=== PATIENT | male | born 1955 | race Caucasian/White ===

== ENCOUNTER 2023-08-04 12:06 | Outpatient (OUT) | payer OTHER, SELFPAY ==
--- NOTE | 2023-08-04 13:11 | P.CN_ITS ---
Consult Note: HPI Data of Consult Patient: new to practice Consult date: 08/04/23 Requesting Physician: Marce Zapata MD Primary Care Provider: Non-Staff Physician, Consult Narrative Reason for consult: Generalized pain, neck, low back pain Narrative: 67yom who presents for evaluation. Notes generalized pain, particularly in neck and low back pain. Previously was on fentanyl patch, now on tramadol. No recent imaging. Confined to wheelchair due to pain. Multiple comorbidities, currently on oxygen. Denies adverse med side effects. cc:: CC: Marce Zapata MD Review of Systems ROS Status of ROS 10 or more systems reviewed and unremark able except as noted in history and below Meds Home Medications and Allergies Home Medications Medication Instructions Recorded Confirmed Type buprenorphine 5 mcg/hour weekly 1 patch transdermal QWEEK #4 ea 08/04/23 Rx transdermal patch (Butrans) meloxicam 15 mg tablet 15 mg PO DAILY #30 tabs 08/04/23 Rx pregabalin 50 mg capsule (Lyrica) 50 mg PO TID #90 caps 08/04/23 Rx Exam Narrative Exam Narrative: Psych-alert and oriented x 3.? Attentive and appropriate, constitutionally normal, displays normal mood and affect per situation.? There are no obvious deficits in memory, reasoning, or intellect.? Skin-no obvious rashes, bruising, or erythema noted to the patient's area of pain. Extremities-upper extremities are warm with minimal edema and palpable pulses. Cervical- tenderness to palpation noted in the cervical spine and paraspinal musculature.? Pain is elicited with extension, and lateral rotation of the cervical spine.? Range of motion is slightly diminished due to pain. Facet loading maneuvers are positive bilaterally.? Lumbar-no significant tenderness to palpation noted in the lumbar spine and paraspinal musculature.? Pain is elicited with extension, and lateral rotation of the lumbar spine. Range of motion is slightly diminished with these motions due to pain. Facet loading maneuvers are positive bilaterally and do appear to be concordant with the patient's normal complaints of pain.? Coordination remains intact.? Gait remains non-antalgic. Assessment and Plan Assessment and Plan (1) Cervicalgia: (2) Lumbago: Qualifiers: Chronicity: chronic Back pain laterality: unspecified Sciatica presence: unspecified whether sciatica present Qualified Code(s): M54.50 - Low back pain, unspecified; G89.29 - Other chronic pain Plan 67yom who presents for evaluation. No recent imaging, so will have him undergo lumbar and cervical XR. He is in agreement. Meds reviewed. PDMP reviewed. Drug screen obtained. Will trial butrans patch 5 mcg/hr, meloxicam 15mg daily prn, lyrica 50mg tid. Follow up after imaging complete.
== END 2023-08-04 12:07 | disposition home or self-care (01) ==
PROVIDERS: Visit Provider Anesthesiology
DX: M54.50 Low back pain, unspecified (principal); M54.2 Cervicalgia; G89.29 Other chronic pain
CPT/HCPCS: G0463

== ENCOUNTER 2023-08-04 13:31 | Outpatient (OUT) | payer OTHER, SELFPAY ==
--- NOTE | 2023-08-04 13:37 | XR_ITS ---
[facility] [id number] Patient Name: MELBA LEVY MRN: [id number] date: 1955 Sex: M Assigned Patient Location: [facility] Current Patient Location: [facility] Accession/Order Number: [id number] Exam Date: 08/04/2023 14:00 Report Date: 08/04/2023 14:45 At the request of: SAWYER STILL Procedure: XR lumbar spine 6V w bending EXAMINATION: XR lumbar spine 6V w bending, XR cervical spine w flex/ext HISTORY: Low Back Pain COMPARISON: No relevant comparison available. CERVICAL: BONES: Normal alignment with no acute fracture or spondylolisthesis. Mild to moderate degenerative spondylosis. Moderate facet osteoarthropathy DISC SPACES: Moderate degenerative changes C5-6 and C6-7 PARASPINOUS: Negative. No paraspinous abnormality is seen. OTHER: No transient spondylolisthesis with flexion or extension . C7 is poorly visualized on the lateral projection XR/XR lumbar spine 6V w bending IMPRESSION: Moderate degenerative changes with no dynamic instability LUMBAR: BONES: Normal alignment of the lumbar vertebral bodies with no acute fracture or spondylolisthesis. Mild degenerative spondylosis. Moderate facet osteoarthropathy. DISC SPACES: Normal. No significant disc height narrowing, subluxation, or endplate abnormality. PARASPINOUS: Negative. No paraspinous abnormality is seen. OTHER: No transient spondylolisthesis with flexion or extension. Vascular calcifications. Dilation of the distal aorta measuring 3.1 cm on the lateral projection IMPRESSION: Mild to moderate degenerative changes with no dynamic instability Electronically authenticated by: PARAMJIT CHAVEZ Date: 08/04/2023 14:45
--- NOTE | 2023-08-04 13:37 | XR_ITS ---
[facility] [place] [facility] [id number] Patient Name: MELBA LEVY MRN: [id number] date: 1955 Sex: M Assigned Patient Location: [facility] Current Patient Location: [facility] Accession/Order Number: [id number] Exam Date: 08/04/2023 14:00 Report Date: 08/04/2023 14:45 At the request of: SAWYER CHEUNGRADARIN Procedure: XR cervical spine w flex/ext EXAMINATION: XR lumbar spine 6V w bending, XR cervical spine w flex/ext HISTORY: Low Back Pain COMPARISON: No relevant comparison available. CERVICAL: BONES: Normal alignment with no acute fracture or spondylolisthesis. Mild to moderate degenerative spondylosis. Moderate facet osteoarthropathy DISC SPACES: Moderate degenerative changes C5-6 and C6-7 PARASPINOUS: Negative. No paraspinous abnormality is seen. OTHER: No transient spondylolisthesis with flexion or extension . C7 is poorly visualized on the lateral projection XR/XR cervical spine w flex/ext IMPRESSION: Moderate degenerative changes with no dynamic instability LUMBAR: BONES: Normal alignment of the lumbar vertebral bodies with no acute fracture or spondylolisthesis. Mild degenerative spondylosis. Moderate facet osteoarthropathy. DISC SPACES: Normal. No significant disc height narrowing, subluxation, or endplate abnormality. PARASPINOUS: Negative. No paraspinous abnormality is seen. OTHER: No transient spondylolisthesis with flexion or extension. Vascular calcifications. Dilation of the distal aorta measuring 3.1 cm on the lateral projection IMPRESSION: Mild to moderate degenerative changes with no dynamic instability Electronically authenticated by: PARAMJIT CHAVEZ Date: 08/04/2023 14:45
== END 2023-08-04 13:32 | disposition home or self-care (01) ==
LOC: RAD 13:32
PROVIDERS: Visit Provider Anesthesiology
DX: M54.50 Low back pain, unspecified (principal); M54.2 Cervicalgia; G89.29 Other chronic pain
CPT/HCPCS: 72052; 72114; G0463

== ENCOUNTER 2023-08-25 12:05 | Outpatient (OUT) | payer OTHER, SELFPAY ==
--- OUTSIDE RECORDS SUMMARY | 2023-08-25 12:17 | XMS_ITS | CCD ---
Demographics Address [address] [place] [address] Preferred Language en Marital Status Single Restoration Affiliation Unknown Race Unknown Ethnic Group Not or Lati no Author Name Unknown Address [address] [place] [address] Organization [facility] Care Team Providers Care Board Writer Name Role Phone TY POSEY Unavailable Unavailable ORA, BRIANA Unavailable Unavailable ORA, BRIANA Unavailable Unavailable ORA, BRIANA Unavailable Unavailable JERMAINE PAEZ Unavailable Unavailable SELF, REFERRED Referring Unavailable SETH, ELENA Primary Care Unavailable UNKNOWN, PROVIDER Admitting Unavailable UNKNOWN, PROVIDER Attending Unavailable RI Procedure Practitioner Unavailab SHAYY Miranda Surgeon Unavailable RI Procedure Practitioner Unavailab Alan Nicholson Surgeon Unavailable RI Procedure Practitioner Unavailab le UNKNOWN, PROVIDER Surgeon Unavailable RI Procedure Practitioner Unavailab SVITLANA Samuel Surgeon Unavailable SETH, ELENA Primary Care Unavailable UNKNOWN, PROVIDER Referring Unavailable SVITLANA JONES Attending Unavailable DEXTER HERNANDEZ Admitting Unavailable KATIA BOYCE Admitting Unavailable KATIA BOYCE Attending Unavailable SETH, ELENA Referring Unavailable SETH, ELENA Primary Care Unavailable Elena Ann Primary Care Provider [phone] Elena Ann Primary Care Provider Elena Ann Primary Care Provider Fernando Angeles MD Unavailable Leo CAMERON Primary Care Physician Rupal Maravilla Unavailable Unavailable Chris Kamara Unavailable Unavailable Leo Garza Primary Care Provider CONSTANTIN ROCKWELL Referring Unavailable LEO CAMERON Primary Care Unavailable NON STAFF Primary Care Unavailable Joesph Pelletier Admitting Unavailable Joesph Pelletier Attending Unavailable NON STAFF Primary Care Provider UnavailDO Joesph Fine Emergency Provider Leo CAMERON Primary Care Physician [phone] Pierce Escamilla Unavailable Unavailable Unavailable Primary Care Provider Unavailjimmie Ann CNP, Elena Gregory Primary Care Provider [phone] Bridgette STRINGER, Fernando Gar Unavailable Cem Aquino Attending Unavailable Leo CAMERON Attending Unavailable Dora GANN Admitting Unavailable Dora GANN Attending Unavailable Cam, Jeremy Consulting Unavailable MD Cam Jeremy Consulting Unavailable Akkina, Jeremy Consulting Unavailable Akkina, Jeremy Consulting Unavailable Akkina, Jeremy Consulting Unavailable Akkina, Jeremy Consulting Unavailable Akkina, Jeremy Consulting Unavailable Akkina, Jeremy Consulting Unavailable Akkina, Jeremy Consulting Unavailable Marce Zapata MD Attending Unavailable PROVIDER, UNKNOWN Attending Unavailable PROVIDER, UNKNOWN Admitting Unavailable Allergies Allergy Classification Reported Allergen(s) Allergy Type Date of Onset Reaction(s) Facility (2 sources) gabapentin Drug Allergy 9 Rash [place], [place] (17 sources) cloNIDine; Translations: [clonidine] Drug Allergy 8 Dizzy spells (finding) [facility] Work Phone: Comment on above: pt falls , lighthead ed, passed out pt falls , lighthead ed, passed out (1 source) No Known Medication Allergies; Translations: [No Known Medication Allergies] Propensity to adverse reactions (disorder) [facility] Repository Medications Current Medications Medication Drug Class(es) Dates Sig (Normalized) Sig (Original) acetaminophen 325 mg oral tablet (6 sources) Start: 12-07-2021 take 2 tablets by mouth every six hours as needed for pain acetaminophen 325 mg Tab 650 mg = 2 tab(s), Oral, q6hr, PRN Pain, Refills(s) 0 Start Date: 12/07/21 Status: Ordered acetaminophen 325 mg / oxyCODONE hydrochloride 5 mg oral tablet (2 sources) Opioid Agonist Start: 05-04-2022 End: 06-03-2022 oxyCODONE-acetamino phen (PERCOCET) 5-325 MG per tablet Indications: Lumbar spondylosis Take 1 tablet by mouth every 8 hours as needed for Pain for up to 30 days. Intended supply: 7 days. Take lowest dose possible to manage pain 75 tablet 0 05/04/2022 06/03/2022 Active Start: 09-22-2020 End: 10-22-2020 take 1 tablet by mouth twice daily oxyCODONE-acetaminophen (PERCOCET) 5-325 MG per tablet Indications: Polyarthralgia Take 1 tablet by mouth 2 times daily for 30 days. 60 tablet 0 09/22/2020 10/22/2020 Active 0.8 ml adalimumab 50 mg/ml auto-injector (2 sources) Tumor Necrosis Factor Rhoda Start: 12-13-2019 HUMIRA PEN 40 MG/0.8ML injection albuterol 0.833 mg/ml / ipratropium bromide 0.167 mg/ml inhalation solution (12 sources) Anticholinergic , beta2-Adrenergi c Agonist Start: 04-04-2022 take 3 mL by inhalation four times daily DuoNeb 2.5 mg-0.5 mg/3 mL Soln-Inh 3 mL, Inhalation, QID, 180 mL, Refill(s) 0, [facility] #[id number], 178, cm, 04/03/22 20:21:00 EDT, Height/Length Dosing, 78.1, kg, 04/03/22 20:21:00 EDT, Weight Dosing Start Date: 04/04/22 Status: Ordered Start: 10-04-2021 take 3 mL by inhalat ion four times daily DuoNeb 2.5 mg-0.5 mg/3 mL Soln-Inh 3 mL, Inhalation, QID, Refill(s) 0 Start Date: 10/04/21 Status: Ordered take 20-100 ug by in halation every six hours albuterol-ipratropium (COMBIVENT RESPIMAT) 20-100 MCG/ACT AERS inhaler Inhale 1 puff into the lungs every 6 hours 0 Active albuterol HFA 90 mcg/inh MDI (14 sources) Start: 04-04-2022 take 2 puff(s) by inhalation every four hours albuterol HFA 90 mcg/inh MDI 2 puff(s), Inhalation, q4hr Shortness of breath or wheezing, 18 gm, Refill(s) 5, [facility] #[id number], 178, cm, 04/03/22 20:21:00 EDT, Height/Length Dosing, 78.1, kg, 04/03/22 20:21:00 EDT, Weight Dosing Start Date: 04/04/22 Status: Ordered Start: 06-18-2021 take 1 dose by inhal ation every four hours albuterol HFA 90 mcg/inh MDI 2 puff(s), Inhalation, q4hr Shortness of breath or wheezing, 1 EA, Refill(s) 5, [facility] #[id number], 185, cm, 04/11/21 9:53:00 EDT, Height/Length Dosing, 89, kg, 04/11/21 9:53:00 EDT, Weight Dosing Start Date: 06/18/21 Status: Ordered amLODIPine 10 mg oral tablet (3 sources) Dihydropyridine Calcium Channel Rhoda take 1 tablet by mouth once daily amLODIPine (NORVASC) 10 MG tablet Indications: Not taking Take 10 mg by mouth daily 0 Active aspirin 81 mg delayed release oral tablet (20 sources) Platelet Aggregation Inhibitor, Nonsteroidal Anti-inflammatory Drug Start: 04-04-20 take 1 tablet by mouth once daily aspirin 81 mg Oral EC Tab 81 mg = 1 tab(s), Oral, Daily, # 30 tab(s), Refills(s) 0, Pharmacy: [facility] #[id number], 178, cm, 04/03/22 20:21:00 EDT, Height/Length Dosing, 78.1, kg, 04/03/22 20:21:00 EDT, Weight Dosing Start Date: 04/04/22 Status: Ordered Start: 10-15-2018 take 1 tablet by mouth once da asim aspirin 81 mg Oral EC Tab 81 mg = 1 tab(s), Oral, Daily Start Date: 10/15/18 Status: Ordered Start: 10-15-2018 take 1 tablet by mouth once da asim aspirin 81 mg Oral EC Tab 81 mg = 1 tab(s), Oral, Daily Start Date: 10/15/18 Status: Ordered Comment on above: Take by mouth once d aily. baclofen 10 mg oral tablet (2 sources) gamma-Aminobutyric Acid-ergic Agonist Start: 11-27-2018 baclofen (LIORESAL) 10 MG tablet 1/2 tab to 1 tab TID 30 tablet 1 11/27/2018 Active bumetanide 2 mg oral tablet (14 sources) Loop Diuretic Start: 04-19-2022 take 1 tablet by mouth once daily bumetanide 2 mg Tab 2 mg = 1 tab(s), Oral, Daily, Refills(s) 0 Start Date: 04/19/22 Status: Ordered Start: 09-04-2021 take 1 tablet by jered th once daily bumetanide 2 mg Tab 2 mg = 1 tab(s), Oral, Daily, # 30 tab(s), Refills(s) 0 Start Date: 09/04/21 Status: Ordered Start: 08-07-2020 take 1 tablet by jered th twice daily bumetanide (BUMEX) 2 MG tablet TAKE 1 TABLET BY MOUTH TWICE DAILY 0 08/07/2020 Active carvedilol 25 mg oral tablet (20 sources) alpha-Adrenergic Rhoda, beta-Adrenergic Rhoda Start: 04-04-2022 take 1 tablet by mouth twice daily carvedilol 25 mg Tab 25 mg = 1 tab(s), Oral, BID, # 60 tab(s), Refills(s) 5, Pharmacy: [facility] #[id number], 178, cm, 04/03/22 20:21:00 EDT, Height/Length Dosing, 78.1, kg, 04/03/22 20:21:00 EDT, Weight Dosing Start Date: 04/04/22 Status: Ordered Start: 09-01-2021 take 1 tablet by jered th twice daily carvedilol 25 mg Tab 25 mg = 1 tab(s), Oral, BID, # 60 tab(s), Refills(s) 5, Pharmacy: [facility] #[id number], 185.4, cm, 08/09/21 2:15:00 EST, Height/Length Dosing, 90.2, kg, 08/14/21 1:30:00 EST, Weight Dosing Start Date: 09/01/21 Status: Ordered Start: 10-26-2014 carvedilol (CO REG) 25 MG tablet Take 12.5 mg by mouth 2 times daily 0 10/26/2014 Active take 2 tablets by mo [facility] twice daily at mealtime carvedilol (COREG) 25 mg tablet Take 50 mg by mouth twice daily with meals. 0 Active Comment on above: Take 50 mg by mouth twice daily with meals. cholecalciferol 0.025 mg oral tablet (14 sources) Vitamin D Start: 04-04-20 take 1 tablet by mouth once daily cholecalciferol 1000 intl units (25 mcg) oral tablet 25 mcg = 1 tab(s), Oral, Daily, # 30 tab(s), Refills(s) 0, Pharmacy: [facility] #[id number], 178, cm, 04/03/22 20:21:00 EDT, Height/Length Dosing, 78.1, kg, 04/03/22 20:21:00 EDT, Weight Dosing Start Date: 04/04/22 Status: Ordered Start: 10-04-2021 take 1 tablet by [facility] once daily cholecalciferol 1000 intl units (25 mcg) oral tablet 25 mcg = 1 tab(s), Oral, Daily, Refills(s) 0 Start Date: 10/04/21 Status: Ordered Start: 10-04-2021 take 1 tablet by jered once daily cholecalciferol 1000 intl units (25 mcg) oral tablet 25 mcg = 1 tab(s), Oral, Daily, Refills(s) 0 Start Date: 10/04/21 Status: Ordered DuoNeb 2.5 mg-0.5 mg/3 mL Soln-Inh (5 sources) Start: 10-04-2021 take 3 mL by inhalation four times daily DuoNeb 2.5 mg-0.5 mg/3 mL Soln-Inh 3 mL, Inhalation, QID, Refill(s) 0 Start Date: 10/04/21 Status: Ordered 72 hr fentaNYL 0.025 mg/hr transdermal system (1 source) Opioid Agonist Start: 03-15-2023 End: 03-22-2023 fentaNYL 25 mcg/hr Transderm ER Film 1 patch(es), Topical, q72hr for 7 day(s), 3 patch(es), Refill(s) 0 Start Date: 03/15/23 Stop Date: 03/22/23 Status: Ordered ferrous sulfate 325 mg delayed release oral tablet (15 sources) Start: 04-19-2022 take 1 tablet by mouth once daily ferrous sulfate 325 mg oral enteric coated tablet 325 mg = 1 tab(s), Oral, Daily, Refills(s) 0 Start Date: 04/19/22 Status: Ordered Start: 11-02-2020 take 1 tablet by jered th once daily ferrous sulfate 325 mg Tab 325 mg = 1 tab(s), Oral, Daily, # 90 tab(s), Refills(s) 3, Pharmacy: [facility] #[id number], 186, cm, 10/31/20 10:12:00 EDT, Height/Length Dosing, 98, kg, 10/31/20 10:12:00 EDT, Weight Dosing Start Date: 11/02/20 Status: Ordered fluticasone propionate 0.05 mg/actuat metered dose nasal spray (18 sources) Corticosteroid Start: 04-04-2022 fluticasone 0. 05 mg/inh Nasal Muse 1 spray(s), Nasal, BID, 16 gram, Refill(s) 11, [facility] #[id number], 178, cm, 04/03/22 20:21:00 EDT, Height/Length Dosing, 78.1, kg, 04/03/22 20:21:00 EDT, Weight Dosing Start Date: 04/04/22 Status: Ordered Start: 08-17-2020 fluticasone 0. 05 mg/inh Nasal Muse 1 spray(s), Nasal, BID, 16 gram, Refill(s) 11, [facility] #[id number], 186, cm, 08/01/20 8:27:00 EST, Height/Length Dosing, 98, kg, 08/01/20 8:27:00 EST, Weight Dosing Start Date: 08/17/20 Status: Ordered Start: 01-13-2016 fluticasone (F LONASE) 50 MCG/ACT nasal spray 1 spray by Nasal route 2 times daily as needed 0 01/13/2016 Active take 1 spray(s) nasa l route once daily fluticasone (FLONASE) 50 mcg/actuation nasal spray Use 1 Muse in each nostril once daily. 0 Active Comment on above: Use 1 Muse in each nostril once daily. 14 actuat fluticasone furoate 0.1 mg/actuat / vilanterol 0.025 mg/actuat dry powder inhaler (3 sources) Corticosteroid, beta2-Adrenergic Agonist fluticasone-vilanter ol (BREO ELLIPTA) 100-25 MCG/INH AEPB inhaler Inhale into the lungs daily 0 Active fluticasone 0.05 mg/inh Nasal Muse (8 sources) Start: 04-04-2022 fluticasone 0.05 mg/inh Nasal Muse 1 spray(s), Nasal, BID, 16 gram, Refill(s) 11, [facility] #[id number], 178, cm, 04/03/22 20:21:00 EDT, Height/Length Dosing, 78.1, kg, 04/03/22 20:21:00 EDT, Weight Dosing Start Date: 04/04/22 Status: Ordered Start: 08-17-2020 fluticasone 0. 05 mg/inh Nasal Muse 1 spray(s), Nasal, BID, 16 gram, Refill(s) 11, [facility] #[id number], 186, cm, 08/01/20 8:27:00 EST, Height/Length Dosing, 98, kg, 08/01/20 8:27:00 EST, Weight Dosing Start Date: 08/17/20 Status: Ordered folic acid 1 mg oral tablet (14 sources) Start: 04-04-2022 take 1 tablet by mouth once daily folic acid 1 mg Tab 1 mg = 1 tab(s), Oral, Daily, # 30 tab(s), Refills(s) 0, Pharmacy: [facility] #[id number], 178, cm, 04/03/22 20:21:00 EDT, Height/Length Dosing, 78.1, kg, 04/03/22 20:21:00 EDT, Weight Dosing Start Date: 04/04/22 Status: Ordered Start: 08-07-2021 take 1 tablet by jered th once daily folic acid 1 mg Tab 1 mg = 1 tab(s), Oral, Daily, # 30 tab(s), Refills(s) 0, Pharmacy: [facility] #[id number], 185.4, cm, 08/06/21 11:08:00 EST, Height/Length Dosing, 88.8, kg, 08/06/21 12:46:00 EST, Weight Dosing Start Date: 08/07/21 Status: Ordered gabapentin 300 mg oral capsule (1 source) Anti-epileptic Agent Start: 07-17-2020 gabapentin (NEURONTIN) 300 MG capsule hydroCHLOROthiazide 25 mg oral tablet (3 sources) Thiazide Diuretic take 1 tablet by mouth once daily hydrochlorothiazide (HYDRODIURIL) 25 MG tablet Take 25 mg by mouth daily 0 Active hydroxychloroquine sulfate 200 mg oral tablet (17 sources) Antimalarial, Antirheumatic Agent Start: 12-31-2019 take 1 tablet by mouth every twelve hours hydroxychloroquine 200 mg Tab 200 mg = 1 tab(s), Oral, q12hr, Refills(s) 0 Start Date: 12/31/19 Status: Ordered hydroxychloroqui ne (PLAQUENIL) 200 MG tablet Take by mouth 2 times daily 0 Active ibuprofen 800 mg oral tablet (1 source) Nonsteroidal Anti-inflammatory Drug take 1 tablet by mouth every six hours as needed for pain ibuprofen (ADVIL;MOTRIN) 800 MG tablet Take 800 mg by mouth every 6 hours as needed for Pain 0 Active 24 hr isosorbide mononitrate 30 mg extended release oral tablet (5 sources) Nitrate Vasodilator Start: take 1 tablet by mouth once daily isosorbide mononitrate 30 mg ER Tab 30 mg = 1 tab(s), Oral, Daily, # 30 tab(s), Refills(s) 0, Pharmacy: [facility] #[id number], 185.4, cm, 04/18/22 14:59:00 EDT, Height/Length Dosing, 76.4, kg, 04/18/22 14:59:00 EDT, Weight Dosing Start Date: 04/19/22 Status: Ordered leflunomide 10 mg oral tablet (20 sources) Antirheumatic Agent Start: 021 take 1 tablet by mouth once daily leflunomide 10 mg oral tablet 10 mg = 1 tab(s), Oral, Daily, # 30 tab(s), Refills(s) 0 Start Date: 09/04/21 Status: Ordered Comment on above: Take by mouth once d aily. lisinopril 10 mg oral tablet (1 source) Angiotensin Converting Enzyme Inhibitor Start: 023 take 1 tablet by mouth once daily lisinopril 10 mg Tab 10 mg = 1 tab(s), Oral, Daily, # 90 tab(s), Refills(s) 0 Start Date: 03/14/23 Status: Ordered LORazepam 1 mg oral tablet (11 sources) Benzodiazepine Start: 023 End: 023 take 1 tablet by mouth four times daily as needed for anxiety LORazepam 1 mg Tab 1 mg = 1 tab(s), Oral, QID, PRN Anxiety, F41.9 anxiety, X 5 day(s), # 20 tab(s), Refills(s) 0 Start Date: 03/15/23 Stop Date: 03/20/23 Status: Ordered Start: 2021 take 1 tablet by jered th four times daily as needed for anxiety LORazepam 1 mg Tab 1 mg = 1 tab(s), Oral, QID, PRN Anxiety, # 10 tab(s), Refills(s) 0 Start Date: 12/18/21 Status: Ordered Start: 10-04-2021 take 1 tablet by jered th four times daily as needed for anxiety LORazepam 1 mg Tab 1 mg = 1 tab(s), Oral, QID, PRN Anxiety, # 12 tab(s), Refills(s) 0 Start Date: 10/04/21 Status: Ordered losartan potassium 100 mg oral tablet (3 sources) Angiotensin 2 Receptor Rhoda take 1 tablet by mouth once daily losartan (COZAAR) 100 MG tablet Take 100 mg by mouth daily 0 Active magnesium oxide 400 mg oral tablet (2 sources) take 1 tablet by mouth three times daily magnesium oxide (MAG-OX) 400 MG tablet magnesium oxide 400 mg (241.3 mg magnesium) tablet Take 1 tablet 3 times a day by oral route. 0 Active meloxicam 15 mg oral tablet (1 source) Nonsteroidal Anti-inflammatory Drug Start: 11-27-2018 take 1 tablet by mouth once daily meloxicam (MOBIC) 15 MG tablet Take 1 tablet by mouth daily 30 tablet 3 11/27/2018 Active Multi Vitamins oral tablet (14 sources) Start: 04-04-2022 Multi Vitamins oral tablet 1 tab(s), Oral, Daily, 30 tab(s), Refill(s) 0, [facility] #[id number], 178, cm, 04/03/22 20:21:00 EDT, Height/Length Dosing, 78.1, kg, 04/03/22 20:21:00 EDT, Weight Dosing Start Date: 04/04/22 Status: Ordered Start: 08-07-2021 Multi Vitamins oral tablet 1 tab(s), Oral, Daily, 30 tab(s), Refill(s) 0, [facility] #[id number], 185.4, cm, 08/06/21 11:08:00 EST, Height/Length Dosing, 88.8, kg, 08/06/21 12:46:00 EST, Weight Dosing Start Date: 08/07/21 Status: Ordered 24 hr nicotine 0.875 mg/hr transdermal system (5 sources) Cholinergic Nicotinic Agonist Start: 04-19-2022 nicotine 21 mg/24 hr Transderm ER Film 1 patch(es), TransDermal, Daily, Refill(s) 0 Start Date: 04/19/22 Status: Ordered nicotine 21 mg-14 mg-7 mg transdermal film, extended release (4 sources) Start: 12-07-2021 End: 01-04-2022 nicotine 21 mg-14 mg-7 mg transdermal film, extended release 1 EA, TransDermal, Daily for 28 day(s), 1 kit(s), Refill(s) 0, [facility] #[id number], 185.4, cm, 12/06/21 4:24:00 EDT, Height/Length Dosing, 80.5, kg, 12/06/21 4:24:00 EDT, Weight Dosing Start Date: 12/07/21 Stop Date: 01/04/22 Status: Ordered nicotine 21 mg/24 hr Transderm ER Film (1 source) Start: 09-08-2021 nicotine 21 mg/24 hr Transderm ER Film TransDermal, Daily, Refill(s) 0 Start Date: 09/08/21 Status: Ordered nitroglycerin 0.4 mg sublingual Tab (5 sources) Start: 07-04-2021 nitroglycerin 0.4 mg sublingual Tab 0.4 mg = 1 tab(s), SubLingual, q5min, PRN for chest pain, If chest pain not relieved in 5 minutes after first dose, seek immediate medical attention, # 25 tab(s), Refills(s) 11, Pharmacy: [facility] #[id number], 185, cm, 07/04/21 16:10:00 ESTHe... Start Date: 07/04/21 Status: Ordered omeprazole 20 mg delayed release oral capsule (2 sources) Proton Pump Inhibitor omeprazole (PRILOSEC) 20 MG delayed release capsule omeprazole 20 mg capsule,delayed release 0 Active oxybutynin chloride 5 mg oral tablet (20 sources) Cholinergic Muscarinic Antagonist Start: 05-11-2016 take 1 tablet by mouth twice daily oxybutynin 5 mg Tab 5 mg = 1 tab(s), Oral, BID, # 60 tab(s), Refills(s) 5, Pharmacy: [facility] #[id number], 178, cm, 04/03/22 20:21:00 EDT, Height/Length Dosing, 78.1, kg, 04/03/22 20:21:00 EDT, Weight Dosing Start Date: 04/04/22 Status: Ordered Comment on above: Take by mouth twice daily. oxyCODONE hydrochloride 5 mg oral tablet (14 sources) Opioid Agonist Start: 03-15-2023 End: 03-20-2023 take 1 tablet by mouth every six hours as needed for pain oxyCODONE 5 mg Tab 5 mg = 1 tab(s), Oral, q6hr, PRN Breakthrough Pain, G89.29 chronic pain, X 5 day(s), # 20 tab(s), Refills(s) 0 Start Date: 03/15/23 Stop Date: 03/20/23 Status: Ordered Start: 2021 take 1 tablet by jered th every six hours as needed for pain oxyCODONE 5 mg Tab 5 mg = 1 tab(s), Oral, q6hr, PRN Breakthrough Pain, # 10 tab(s), Refills(s) 0 Start Date: 12/18/21 Status: Ordered Start: 10-04-2021 take 1 tablet by jered th every six hours as needed for pain oxyCODONE 5 mg Tab 5 mg = 1 tab(s), Oral, q6hr, PRN Breakthrough Pain, # 10 tab(s), Refills(s) 0 Start Date: 10/04/21 Status: Ordered pravastatin sodium 40 mg oral tablet (17 sources) HMG-CoA Reductase Inhibitor Start: 12-13-2019 take 1 tablet by mouth once daily pravastatin 40 mg Tab 40 mg = 1 tab(s), Oral, Daily, # 30 tab(s), Refills(s) 0, Pharmacy: [facility] #[id number], 178, cm, 04/03/22 20:21:00 EDT, Height/Length Dosing, 78.1, kg, 04/03/22 20:21:00 EDT, Weight Dosing Start Date: 04/04/22 Status: Ordered predniSONE (2 sources) PREDNISONE PO Ta ke by mouth 0 Active Symbicort 160/4.5 inhalation aerosol with adapter (7 sources) Start: 04-04-2022 take 2 puff(s) by inhalation twice daily Symbicort 160/4.5 inhalation aerosol with adapter 2 puff(s), Inhalation, BID, 10.2 gm, Refill(s) 11, [facility] #[id number], 178, cm, 04/03/22 20:21:00 EDT, Height/Length Dosing, 78.1, kg, 04/03/22 20:21:00 EDT, Weight Dosing Start Date: 04/04/22 Status: Ordered tamsulosin hydrochloride 0.4 mg oral capsule (20 sources) alpha-Adrenergi c Rhoda Start: 01-30-2016 take 1 capsule by mouth at bedtime tamsulosin 0.4 mg Cap 0.4 mg = 1 cap(s), Oral, Bedtime, # 30 cap(s), Refills(s) 0, Pharmacy: [facility] #[id number], 178, cm, 04/03/22 20:21:00 EDT, Height/Length Dosing, 78.1, kg, 04/03/22 20:21:00 EDT, Weight Dosing Start Date: 04/04/22 Status: Ordered Comment on above: Take by mouth. thiamine 100 mg oral tablet (14 sources) Start: 04-04-2022 take 1 tablet by mouth once daily thiamine 100 mg Tab 100 mg = 1 tab(s), Oral, Daily, # 30 tab(s), Refills(s) 0, Pharmacy: [facility] #[id number], 178, cm, 04/03/22 20:21:00 EDT, Height/Length Dosing, 78.1, kg, 04/03/22 20:21:00 EDT, Weight Dosing Start Date: 04/04/22 Status: Ordered Start: 08-07-2021 take 1 tablet by jered th once daily thiamine 100 mg Tab 100 mg = 1 tab(s), Oral, Daily, # 30 tab(s), Refills(s) 0, Pharmacy: [facility] #[id number], 185.4, cm, 08/06/21 11:08:00 EST, Height/Length Dosing, 88.8, kg, 08/06/21 12:46:00 EST, Weight Dosing Start Date: 08/07/21 Status: Ordered traZODone hydrochloride 50 mg oral tablet (13 sources) Serotonin Reuptake Inhibitor Start: 01-18-2021 take 1 tablet by mouth once daily at bedtime traZODONE 50 mg Tab 50 mg = 1 tab(s), Oral, Once a day (at bedtime) Start Date: 04/19/22 Status: Ordered vitamin b6 100 mg oral tablet (2 sources) Start: 10-23-2019 Pyridoxine HCl (B-6) 100 MG TABS Completed/Discontinued Medications Medication Drug Class(es) Dates Sig (Normalized) Sig (Original) AirDuo RespiClick 113 mcg-14 mcg/inh inhalation powder (5 sources) Start: 08-14-2021 take 1 dose by inhalation twice daily AirDuo RespiClick 113 mcg-14 mcg/inh inhalation powder 1 puff, Inhalation, BID, 1 EA, Refill(s) 5, [facility] #[id number], 185.4, cm, 08/09/21 2:15:00 EST, Height/Length Dosing, 90.2, kg, 08/14/21 1:30:00 EST, Weight Dosing Start Date: 08/14/21 Status: Ordered Albuterol (13 sources) beta2-Adrenergic Agonist Start: 01-04-2020 take 1 dose by inhalation four times daily albuterol 0.083% Inh Avril 3 mL 0.083% - 3mL dosing units, Inhalation, q6hr Dyspnea, 120 EA, Refill(s) 11, 1 vial inhalation QID, [facility] #[id number], 185, cm, 12/28/19 7:57:00 EDT, Height/Length Measured, 115.6, kg, 12/28/19 7:57:00 EDT, Weight Measured Start Date: 01/04/20 Status: Ordered take 2 puff(s) by in halation every six hours as needed for wheezing albuterol sulfate HFA (PROVENTIL;VENTOLI N;PROAIR) 108 (90 Base) MCG/ACT inhaler Inhale 2 puffs into the lungs every 6 hours as needed for Wheezing 0 Active ALBUTEROL SULFAT E (VENTOLIN INHALATION) Inhale as instructed. 0 Active take 2 puff(s) by in halation every six hours as needed for wheezing albuterol sulfate HFA (VENTOLIN HFA) 108 (90 Base) MCG/ACT inhaler Inhale 2 puffs into the lungs every 6 hours as needed for Wheezing 0 Active Comment on above: Inhale as instructed . 60 actuat fluticasone propionate 0.113 mg/actuat / salmeterol xinafoate 0.014 mg/actuat dry powder inhaler (2 sources) Corticosteroid, beta2-Adrenergic Agonist Start: 022 take 1 dose by inhalation twice daily AirDuo RespiClick 113 mcg-14 mcg/inh inhalation powder 1 puff, Inhalation, BID, 1 EA, Refill(s) 5, [facility] #[id number], 185.4, cm, 08/09/21 2:15:00 EST, Height/Length Dosing, 90.2, kg, 08/14/21 1:30:00 EST, Weight Dosing Start Date: 08/14/21 Status: Ordered 1 ml hydrALAZINE hydrochloride 20 mg/ml injection (13 sources) Arteriolar Vasodilator Start: 023 End: 023 inject 10 mg intravenously every four hours as needed hydrALAZINE 20 mg/mL Inj 10 mg = 0.5 mL, Injection, IV, q4hr PRN Other (see comment), Routine, Start date 03/14/23 20:04:00 EDT, 03/14/23 20:04:00 EDT Start Date: 03/14/23 Stop Date: 03/16/23 Status: Discontinued Start: 06-29-2020 take 2 tablets by [facility] three times daily hydrALAZINE (APRESOLINE) 25 MG tablet TAKE 2 TABLETS BY MOUTH THREE TIMES DAILY 0 06/29/2020 Active hydrALAZINE (APR ESOLINE) 100 mg tablet Take by mouth twice daily. 0 Active take 1 tablet by jered three times daily hydrALAZINE (APRESOLINE) 100 MG tablet Take 100 mg by mouth 3 times daily 0 Active Comment on above: Take by mouth twice daily. metoprolol 1 mg/mL Inj (1 source) Start: End: 023 inject 5 mg intravenously once metoprolol 1 mg/mL Inj 5 mg = 5 mL, Injection, IV Push, Once, Stop date 03/15/23 2:00:00 EDT, Routine, Start date 03/15/23 2:00:00 EDT, 03/15/23 1:50:00 EDT Start Date: 03/15/23 Stop Date: 03/15/23 Status: Completed nitroglycerin 0.4 mg sublingual tablet (20 sources) Nitrate Vasodilator Start: 017 nitroglycerin sublingual (NITROSTAT) 0.4 mg SL tablet Indications: Atherosclerosis of [place] coronary artery of [place] heart with stable angina pectoris (HCC) Dissolve 1 tablet under the tongue every 5 minutes as needed. 1 Bottle of 25 11 12/03/2016 Active Comment on above: Dissolve 1 tablet un bill the tongue every 5 minutes as needed. potassium chloride 20 meq extended release oral tablet (16 sources) Start: 022 potassium chloride 20 mEq Oral Pwdr = 1 packet(s), Oral, BID, # 60 packet(s), Refills(s) 5, Pharmacy: [facility][id number], 178, cm, 01/18/22 14:13:00 EDT, Height/Length Dosing, 78.1, kg, 01/18/22 14:13:00 EDT, Weight Dosing Start Date: 01/18/22 Status: Ordered Start: 09-04-2021 take 2 tablets by mo [facility] twice daily potassium chloride 20 mEq ER Tab 40 mEq = 2 tab(s), Oral, BID, # 180 tab(s), Refills(s) 0 Start Date: 09/04/21 Status: Ordered Start: 07-17-2020 take 1 tablet by [facility] once daily potassium chloride 20 mEq ER Tab 20 mEq = 1 tab(s), Oral, Daily, # 30 tab(s), Refills(s) 0, [facility]acy: [facility] #[id number], 178, cm, 04/03/22 20:21:00 EDT, Height/Length Dosing, 78.1, kg, 04/03/22 20:21:00 EDT, Weight Dosing Start Date: 04/04/22 Status: Ordered valsartan 320 mg oral tablet (9 sources) Angiotensin 2 Receptor Rhoda valsartan (DIOVAN) 3 20 mg tablet Take by mouth once daily. 0 Active Comment on above: Take by mouth once d aily. Problems Active Problems Problem Classification Problem Date Documented Date Episodic/Chronic Adverse effects of medical drugs (1 source) Adverse effect of other antihypertensive drugs, initial encounter; Translations: [ADVERSE EFFECT OF OTHER ANTIHYPERTENSIVE DRUGS, INIT ENCNTR] Onset: 12-23-2017 Alcohol-related disorders (20 sources) Alcohol abuse; Translations: [Alcohol abuse, uncomplicated] Onset: 06-26-2016 11-27-2018 Chronic Alcohol-related disorders (11 sources) Alcohol use, unspecified with intoxication, unspecified; Translations: [Alcohol-induced organic mental disorder] Onset: 11-12-2021 Episodic Allergic reactions (10 sources) Chronic urticaria 04-15-2021 Episodic Anxiety disorders (6 sources) Anxiety disorder; Translations: [Anxiety disorder, unspecified] Onset: 04-18-2022 Chronic Aortic; peripheral; and visceral artery aneurysms (20 sources) Abdominal aortic aneurysm; Translations: [Dilatation of aorta] Onset: 06-26-2016 11-27-2018 Chronic Chronic obstructive pulmonary disease and bronchiectasis (20 sources) Chronic obstructive pulmonary disease, unspecified; Translations: [Chronic obstructive lung disease] Onset: 06-26-2016 11-27-2018 Chronic Coagulation and hemorrhagic disorders (3 sources) Thrombocytopenic disorder; Translations: [Thrombocytopenia, unspecified] Onset: 12-06-2021 Chronic Coagulation and hemorrhagic disorders (8 sources) Acquired thrombocytopenia; Translations: [Other secondary thrombocytopenia] Onset: 04-11-2022 Episodic Conditions associated with dizziness or vertigo (1 source) Dizziness and giddiness; Translations: [Dizziness and giddiness] Onset: 11-12-2021 Episodic Congestive heart failure; nonhypertensive (20 sources) Heart failure, unspecified; Translations: [Congestive heart failure] Onset: 01-10-2018 07-30-2020 Chronic Coronary atherosclerosis and other heart disease (20 sources) Atherosclerotic heart disease of [place] coronary artery without angina pectoris; Translations: [Coronary atherosclerosis] Onset: 06-26-2016 11-27-2018 Chronic Deficiency and other anemia (1 source) Pancytopenia; Translations: [Other pancytopenia] Onset: 11-12-2021 Chronic Deficiency and other anemia (1 source) Iron deficiency anemia; Translations: [Iron deficiency anemia, unspecified] Onset: 12-06-2021 Episodic Disorders of lipid metabolism (20 sources) Hyperlipidemia, unspecified; Translations: [Mixed hyperlipidemia] Onset: 12-03-2016 12-03-2016 Chronic E Codes: Fall (4 sources) Fall; Translations: [Unspecified fall, initial encounter] Onset: 11-12-2021 Episodic Essential hypertension (20 sources) Essential (primary) hypertension; Translations: [Essential hypertension] Onset: 12-03-2016 12-03-2016 Chronic External cause codes: Fall (3 sources) Other fall on same level, initial encounter; Translations: [Fall in home] Onset: 12-23-2017 11-26-2020 External cause codes: Place of occurrence (1 source) Unspecified place in single-family (private) house as the place of occurrence of the external cause; Translations: [UNSP PLACE IN SINGLE-FAMILY (PRIVATE) HOUSE PLACE] Onset: 12-23-2017 Fluid and electrolyte disorders (20 sources) Hypokalemia; Translations: [Hypokalemia] Onset: 11-12-2021 Episodic Hyperplasia of prostate (20 sources) Benign prostatic hyperplasia; Translations: [Benign prostatic hypertrophy without outflow obstruction] Onset: 12-06-2021 08-06-2021 Chronic Hypertension with complications and secondary hypertension (18 sources) Hypertensive heart and chronic kidney disease; Translations: [Benign hypertensive heart AND renal disease] Onset: 08-01-2017 11-27-2018 Chronic Malaise and fatigue (3 sources) Asthenia; Translations: [Weakness] Onset: 11-12-2021 Episodic Other and ill-defined heart disease (4 sources) Heart disease; Translations: [Other ill-defined heart diseases] Onset: 12-10-2021 Chronic Other circulatory disease (1 source) History of cerebrovascular disease; Translations: [Personal history of other diseases of the circulatory system] Onset: 11-12-2021 Episodic Other connective tissue disease (1 source) Neurological symptom; Translations: [Unspecified symptoms and signs involving the nervous system] Onset: 12-06-2021 Episodic Other connective tissue disease (13 sources) Recurrent falls ; Translations: [Repeated falls] Onset: 12-15-2021 Episodic Other connective tissue disease (1 source) Hand pain; Translations: [Pain in left hand] Onset: 12-17-2021 Episodic Other diseases of bladder and urethra (14 sources) Overactive bladder 07-30-2020 Chronic Other ear and sense organ disorders (14 sources) Bilateral hearing loss 07-30-2020 Chronic Other fractures (14 sources) Fracture of rib 10-05-2019 Episodic Comment on above: 2019 Other hereditary and degenerative nervous system conditions (3 sources) 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; Translations: [Degeneration of nervous system due to alcohol] Onset: 12-10-2021 Chronic Other injuries and conditions due to external causes (14 sources) At risk for falls 07-30-2020 Episodic Other injuries and conditions due to external causes (1 source) Admitted for observation; Translations: [Encounter for examination and observation following other accident] Onset: 04-03-2022 Episodic Other liver diseases (6 sources) Steatosis of liver; Translations: [Fatty (change of) liver, not elsewhere classified] Onset: 04-18-2022 Chronic Other lower respiratory disease (2 sources) Dyspnea, unspecified; Translations: [Other abnormalities of breathing] Onset: 01-10-2018 Episodic Other lower respiratory disease (5 sources) Dyspnea; Translations: [Shortness of breath] Onset: 01-10-2018 Resolved: 01-11-2018 01-11-2018 Episodic Other nervous system disorders (14 sources) Neuropathy 06-26-2020 Chronic Other nervous system disorders (2 sources) Chronic pain; Translations: [Other chronic pain] Onset: 12-06-2021 Chronic Other nervous system disorders (2 sources) Polyneuropathy; Translations: [Polyneuropathy, unspecified] Onset: 12-06-2021 Chronic Other nervous system disorders (1 source) Other chronic pain; Translations: [G89.29] Onset: 03-15-2023 Chronic Other nervous system disorders (12 sources) Disorder of the central nervous system 12-10-2021 Episodic Other non-traumatic joint disorders (1 source) Multiple joint pain; Translations: [Polyarthralgia] Episodic Other non-traumatic joint disorders (2 sources) Shoulder pain 11-25-2018 Episodic Other nutritional; endocrine; and metabolic disorders (14 sources) Body mass index 25-29 - overweight 11-22-2020 Episodic Other nutritional; endocrine; and metabolic disorders (18 sources) Overweight; Translations: [Overweight] Onset: 12-10-2021 08-01-2020 Episodic Other nutritional; endocrine; and metabolic disorders (1 source) Overweight in adulthood with body mass index of 25 or more but less than 30; Translations: [Body mass index (BMI) 26.0-26.9, adult] Onset: 01-18-2022 Episodic Pleurisy; pneumothorax; pulmonary collapse (1 source) Pleurisy; pneumothorax; pulmonary collapse Onset: 12-23-2017 Pulmonary heart disease (1 source) Pulmonary hypertension; Translations: [Pulmonary hypertension, unspecified] Onset: 04-18-2022 Chronic Residual codes; unclassified (3 sources) Sleep apnea; Translations: [Sleep apnea, unspecified] Onset: 06-26-2016 11-27-2018 Chronic Residual codes; unclassified (1 source) Pain; Translations: [Pain, unspecified] Onset: 11-12-2021 Episodic Residual codes; unclassified (14 sources) Chronic pain 07-20-2020 Episodic Residual codes; unclassified (15 sources) Insomnia; Translations: [Insomnia, unspecified] Onset: 12-06-2021 11-26-2020 Episodic Residual codes; unclassified (19 sources) Noncompliance with medication regimen; Translations: [Patient's other noncompliance with medication regimen] Onset: 12-06-2021 08-01-2020 Episodic Residual codes; unclassified (1 source) Refused procedure - parent's wish; Translations: [Procedure and treatment not carried out because of patient's decision for other reasons] Onset: 12-06-2021 Episodic Residual codes; unclassified (3 sources) Procedure carried out on subject; Translations: [Encounter for prophylactic measures, unspecified] Onset: 12-06-2021 Episodic Residual codes; unclassified (1 source) Noncompliance with treatment; Translations: [Patient's noncompliance with other medical treatment and regimen] Onset: 12-15-2021 Episodic Residual codes; unclassified (1 source) Patient encounter status; Translations: [Other specified health status] Onset: 03-14-2023 Episodic Respiratory failure; insufficiency; arrest (adult) (20 sources) Chronic respiratory failure with hypoxia; Translations: [Dependence on supplemental oxygen] Onset: 12-23-2017 Chronic Rheumatoid arthritis and related disease (20 sources) Rheumatoid arthritis, unspecified; Translations: [Rheumatoid arthritis] Onset: 06-26-2016 11-27-2018 Chronic Spondylosis; intervertebral disc disorders; other back problems (5 sources) Lumbar spondylosis; Translations: [Lumbar facet joint pain] Onset: 12-01-2014 Resolved: 05-16-2020 11-22-2015 Chronic Spondylosis; intervertebral disc disorders; other back problems (19 sources) Chronic low back pain; Translations: [Lumbar facet joint pain] Onset: 12-01-2014 10-13-2015 Episodic Substance-related disorders (17 sources) Nicotine dependence, cigarettes, uncomplicated; Translations: [Smoker] Onset: 12-23-2017 08-06-2021 Chronic Comment on above: Added secondary to d ocumentation in Social History. Superficial injury; contusion (2 sources) Contusion of chest; Translations: [Contusion of unspecified front wall of thorax, initial encounter] Onset: 12-15-2021 Episodic Unclassified (1 source) C/O CHEST PAIN Onset: 12-23-2017 Unclassified (1 source) Long-term current use of drug therapy; Translations: [Chronic use of opiate drug for therapeutic purpose] Onset: 09-14-2015 12-21-2018 Unclassified (14 sources) Patient encounter status 07-30-2020 Unclassified (5 sources) Mild pulmonary hypertension 04-18-2022 Past or Other Problems Problem Classification Problem Date Documented Da te Episodic/Chronic Abdominal pain (1 source) Right upper quadrant pain; Translations: [RIGHT UPPER QUADRANT PAIN] Onset: 01-11-2018 Episodic Bacterial infection; unspecified site (2 sources) Methicillin susceptible Staphylococcus aureus infection as the cause of diseases classified elsewhere; Translations: [Bacteremia] Onset: 12-23-2017 Episodic Complications of surgical procedures or medical care (2 sources) Postprocedural air leak; Translations: [Hypotension due to drugs] Onset: 12-23-2017 Episodic Coronary atherosclerosis and other heart disease (4 sources) Presence of aortocoronary bypass graft; Translations: [Presence of coronary angioplasty implant and graft] Onset: 12-03-2016 11-27-2018 Episodic Crushing injury or internal injury (3 sources) Traumatic hemopneumothorax, initial encounter; Translations: [TRAUMATIC HEMOPNEUMOTHORAX, INITIAL ENCOUNTER] Onset: 12-23-2017 Episodic Deficiency and other anemia (8 sources) Anemia; Translations: [Anemia, unspecified] Onset: 06-26-2016 11-27-2018 Episodic Other aftercare (1 source) High risk drug monitoring status; Translations: [Chronic use of opiate drug for therapeutic purpose] Onset: 09-14-2015 12-21-2018 Episodic Other aftercare (1 source) Long-term current use of drug therapy; Translations: [bed bug exterminator (current) use of opiate analgesic] Onset: 09-14-2015 12-21-2018 Episodic Other connective tissue disease (3 sources) Dupuytren's contracture ; Translations: [Palmar fascial fibromatosis [Dupuytren]] Onset: 06-26-2016 11-27-2018 Episodic Other fractures (1 source) Multiple fractures of ribs, right side, initial encounter for closed fracture; Translations: [MULTIPLE FRACTURES OF RIBS, RIGHT SIDE, INIT FOR CLOS FX] Onset: 12-23-2017 Episodic Other fractures (4 sources) Multiple fractures of ribs, right side, subsequent encounter for fracture with routine healing; Translations: [MULTIPLE FX OF RIBS, RIGHT SIDE, SUBS FOR FX W ROUTN HEAL] Onset: 01-11-2018 Episodic Other injuries and conditions due to external causes (1 source) History of falling; Translations: [HISTORY OF FALLING] Onset: 12-23-2017 Episodic Other lower respiratory disease (1 source) Shortness of breath; Translations: [SHORTNESS OF BREATH] Onset: 02-23-2018 Episodic Other lower respiratory disease (3 sources) Hypoxemia; Translations: [HYPOXEMIA] Onset: 01-11-2018 Episodic Other lower respiratory disease (1 source) Other nonspecific abnormal finding of lung field; Translations: [OTHER NONSPECIFIC ABNORMAL FINDING OF LUNG FIELD] Onset: 02-23-2018 Episodic Pleurisy; pneumothorax; pulmonary collapse (1 source) Pyothorax without fistula; Translations: [PYOTHORAX WITHOUT FISTULA] Onset: 12-23-2017 Episodic Pneumonia (except that caused by tuberculosis or sexually transmitted disease) (1 source) Pneumonia, unspecified organism; Translations: [PNEUMONIA, UNSPECIFIED ORGANISM] Onset: 12-23-2017 Episodic Residual codes; unclassified (11 sources) Tobacco user; Translations: [Tobacco use] Onset: 12-03-2016 12-03-2016 Episodic Residual codes; unclassified (14 sources) Increased body mass index Resolved: 12-02-2018 03-09-2019 Episodic Respiratory failure; insufficiency; arrest (adult) (3 sources) Acute respiratory failure; Translations: [Acute respiratory failure, unspecified whether with hypoxia or hypercapnia] Onset: 01-11-2018 01-11-2018 Episodic Spondylosis; intervertebral disc disorders; other back problems (2 sources) Arthritis of facet joint of lumbar spine; Translations: [Facet arthritis of lumbar region] Onset: 12-01-2014 Resolved: 05-16-2020 11-22-2015 Results Test Name Value Interpretation Reference Range Facility Hospice Recordson 06-19-2023 Hospice Records [id number] 0TIFF [facility] Transfer Documentson 023 Transfer Documents [id number]. 00TIFF [facility] Vaccinationson 04-30-2023 Vaccinations [id number]. 00TIFF [facility] ED Note-Physicianon 04-12-20 23 ED Note-Physician Basic Information Time Seen: Zander Bull MD 03/14/2023 03:53 Chief Complaint fall/ hit head History of Present Illness 67-year-old male brought from home after a fall at home. Apparently the called the ambulance squad after he fell. Apparently the patient falls frequently because of his alcohol abuse. He does admit to drinking tonight. He states that he did hit his head but he states he was not knocked unconscious. He does not complain of any head pain. He does not complain of any focal pain. He does not want to be in the ER and insist that he is going to leave. He does admit to history of COPD and heart disease he has had previous bypass surgery. Review of Systems A 10 point review of systems is negative except as noted above. Medical and Surgical History: Reviewed and noted Social history: Lives at home Tobacco: Denies Physical Exam Vitals & Measurements HR: 59(Peripheral) BP: 118/86 SpO2: 100% HT: 185 cm WT: 75 kg BMI: 21.91 This is a tall thin white male who behaves in an intoxicated fashion. His hygiene is poor. The skull itself is atraumatic I do not detect any lacerations swelling or discoloration there is no point tenderness. The neck by palpation is nontender. He does have a midline sternotomy scar. The heart is regular the lungs are diminished at both bases but he does take a full breath without splinting. No gross deformity is noted about the chest. The abdomen is soft I do not elicit any tenderness on deep palpation. Lateral compression over the pelvis does not appear to be painful. Patient has limited extension of the left elbow from old trauma. Otherwise full flexion without any discomfort. Right upper extremity shows full range of motion with normal strength. The lower extremities also full range of motion with normal strength. The back does show some increased kyphosis noted deformity swelling or point tenderness. Medical Decision Making The apparently does not anticipate coming to the hospital to see the patient till this morning. The patient refuses x-rays and test at this time. We will observe the patient here orders have been written if the patient is in agreement we will then proceed with the testing otherwise we await the 's arrival. We did explain to the patient that he would not be allowed home without a sober adult. I rechecked the patient shortly before 5:45 AM. Patient is spontaneously awake in exam room 3. He is requesting a pain shot. Still refuses to go for x-ray does not want to leave the bed he states. Assessment/Plan 1. Sinus bradycardia (R00.1: Bradycardia, unspecified) 2. Hyponatremia (E87.1: Hypo-osmolality and hyponatremia) 3. Acute alcohol intoxication (F10.929: Alcohol use, unspecified with intoxication, unspecified) 4. Encounter for examination following a fall (Z04.3: Encounter for examination and observation following other accident) Orders: ketorolac, 30 mg = 1 mL, Injection, IntraMuscular, Once, Stop date 03/14/23 5:43:00 EDT, STAT, Start date 03/14/23 5:43:00 EDT, 03/14/23 5:43:00 EDT Automated Diff Basic Metabolic Panel CBC w/ Auto Diff Consult to General Surgery CT Head or Brain w/o Contrast CT Spine Cervical w/o Contrast Drug Screen Urine ECG 12 Lead Adult eGFR Ethanol Level Extra SST Tube Hepatic Function Panel PT & PTT Troponin 0 Hr. Troponin 3 Hr. Troponin 6 Hr. Troponin 9 Hr. 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 Anxiety Aortic ectasia Arthritis, rheumatoid At risk for fall due to comorbid condition Benign hypertensive heart and kidney disease Benign prostate hyperplasia BMI 26.0-26.9,adult CAD (coronary artery disease) Centrilobular emphysema Chronic pain Cigarette nicotine dependence Diastolic dysfunction Diastolic dysfunction without heart failure Frequent falls Hearing loss, bilateral Hepatic steatosis Hypertension Hypokalemia Hyponatremia Hypoxemic respiratory failure, chronic Insomnia disorder Lumbar back pain Medication management Mild pulmonary hypertension Mixed hyperlipidemia Neuropathy Noncompliance with medication regimen OAB (overactive bladder) Overweight Requires oxygen therapy Rheumatoid arthritis Historical BMI 29.0-29.9,adult BPH without urinary obstruction Chronic obstructive pulmonary disease Rib fracture Procedure/Surgical History CABG - Coronary artery bypass graft (07/14/2004), Colonoscopy, History of lumbar spine surgery, punctured lung /rib surgery 20 (more content not included)... Normal [facility] Comment on above: Result Comment: Elec tronically Signed By: Jorgito STRINGER, Zander\.br\Date and Time Signed: 04/12/23 00:43 EDT Discharge Instructionson Discharge Instructions [id number]. 00CD:127 Normal [facility] Progress Noteson 03-18-2023 Laser Specialist Authentication Interface Message Text EMERGENCY TRIAGE, TREAT AND TRANSPORT (ET3) DOCUMENTATION OF TELEHEALTH VISIT Date / Time: 03/13/2023 / 2330 Name: Melba Levy : 1955 SSN: [id number] EMS Agency: [facility] [x] Verbal consent obtained [] Implied consent - patient with potential emergency medical condition requiring assessment of capacity to refuse treatment and/or transport VITAL SIGNS: see flowsheet documentation Reason for Telehealth Visit: Chief Complaint Patient presents with General weakness/tiredness History of Present Illness: 67 yo male called ems after a fall. No LOC. No back pain. No AC. Pt declines transport. Reports progression of generalized weakness and deconditioning. Working w/ his doc/home health services and reportedly getting placed in skilled facility this week. Pt currently without complaint. Does not want transported. Additional pertinent PMHx, SocHx, FamHx: PMH acute alcohol intoxication Chronic Obstructive Pulmonary Disease (COPD) Coronary Artery Disease Hypertension Review of Systems: Denies the following: CP, abd pain, NVD, SOB Exam: General: Awake, no distress ENT: normocephalic, atraumatic Pulmonary: No respiratory distress Cardiovascular: Well perfused Neurologic: Oriented to person, place, time and events. Moving all extremities equally. Psychiatric: Appropriate. Good insight and judgement. Medical Decision Makin yo male reports non injury fall. Has medical decision making capacity and declines EMS transport. Pt has current plan for admission to skilled facility this week, working w/ his care team. Pt wishes to stay home w/ current level of support until he can get placed into skilled facility as planned this week. Call EMS back precautions reviewed. No questions. Disposition Supported by Telehealth Assessment: ET3 transport decisions: Refused transport EMS Disposition Reported: Same ET3 Encounter Completed by: DO Naresh Benoit [employer] [facility] Discharge Note-Nursingon Discharge Note-Nursing MELBA LEVY :1955 Visit Date:03/14/2023 Inpatient Discharge Instructions Your Care Team Admitting Physician - Dora GANN MD Consulting Physician - Jeremy Levy MD Reason for Your Visit Fall Your Diagnosis General weakness Acute alcohol intoxication Chronic hyponatremia Hypertension Hyperlipidemia Coronary artery disease Chronic diastolic heart failure Rheumatoid arthritis Chronic respiratory failure with hypoxia COPD without exacerbation No contraindication to deep vein thrombosis (DVT) prophylaxis Chronic pain Multiple falls Rib contusion Tests Performed Alcohol Level Automated Diff BMP CBC w/ Auto Diff COVID Rapid Antigen ([facility]) Drug Screen Urine eGFR Hepatic Function Panel Magnesium Level PT & PTT Sodium Level Troponin 0 Hr. Troponin 3 Hr. Troponin [address] Hr[address] Abdomen/Pelvis w/o Contrast CT C-Spine w/o Contrast CT Chest w/o Contrast CT Head or Brain w/o Contrast XR Chest Single View XR Pelvis 1 or 2 Views This Is Your Medications List albuterol (albuterol HFA 90 mcg/inh MDI) albuterol-ipratropium (DuoNeb 2.5 mg-0.5 mg/3 mL Soln-Inh) aspirin (aspirin 81 mg Oral EC Tab) budesonide-formoterol (Symbicort 160/4.5 inhalation aerosol with adapter) bumetanide (bumetanide 2 mg Tab) carvedilol (carvedilol 25 mg Tab) cholecalciferol (cholecalciferol 1000 intl units (25 mcg) oral tablet) fentanyl (fentaNYL 25 mcg/hr Transderm ER Film) ferrous sulfate (ferrous sulfate 325 mg oral enteric coated tablet) fluticasone nasal (fluticasone 0.05 mg/inh Nasal Muse) folic acid (folic acid 1 mg Tab) hydroxychloroquine (hydroxychloroquine 200 mg Tab) isosorbide mononitrate (isosorbide mononitrate 30 mg ER Tab) leflunomide (leflunomide 10 mg oral tablet) lisinopril (lisinopril 10 mg Tab) lorazepam (LORazepam 1 mg Tab) multivitamin (Multi Vitamins oral tablet) nicotine (nicotine 21 mg/24 hr Transderm ER Film) nitroglycerin (nitroglycerin 0.4 mg sublingual Tab) oxybutynin (oxybutynin 5 mg Tab) oxycodone (oxyCODONE 5 mg Tab) potassium chloride (potassium chloride 20 mEq ER Tab) pravastatin (pravastatin 40 mg Tab) tamsulosin (tamsulosin 0.4 mg Cap) thiamine (thiamine 100 mg Tab) trazodone (traZODONE 50 mg Tab) Procedure History CABG - Coronary artery bypass graft (07/14/2004), Colonoscopy, History of lumbar spine surgery, punctured lung /rib surgery 2018, Triple coronary bypass. Discharge Vitals Temperature (Axillary) 36.7 ?C Heart Rate (Monitored) 69 Respiratory Rate 20 Blood Pressure 131/80 Weight 77.3 kg What to do next Instructions From Your Doctor Event Name Event Result Discharge Activity Ambulate as tolerated Discharge Diet(s) Regular Pending Diagnostic Test Results None Pharmacy Information [facility] New Follow Up Appointments after Discharge Follow Up with Leo CAMERON When: Within 5 to 7 days Where: [address], [address] [place] [address] Business (1) Medications What How Much When Why Instructions Next Dose Changed fentanyl (fentaNYL 25 mcg/ hr Transderm ER Film) 1 Patches Topical Every 72 hours Duration: 7 Days Printed Prescription 03/19/23 9 am Changed lorazepam (LORazepam 1 mg Tab) 1 Tablets By Mouth 4 times a day as needed for Anxiety Acute alcohol intoxication Duration: 5 Days F41.9 anxiety Printed Prescription Changed oxycodone (oxyCODONE 5 mg Tab) 1 Tablets By Mouth Every 6 hours as needed for Breakthrough Pain Rib contusion Chronic pain Duration: 5 Days G89.29 chronic pain Printed Prescription 03/16/23 10 pm Unchanged albuterol (albuterol HFA 90 mcg/ inh MDI) 2 Puffs Inhalation Every 4 hours as needed for Shortness of breath or wheezing Unchanged albuterol-ipratropium (DuoNeb 2.5 mg-0.5 mg/ 3 mL Soln-Inh) 3 Milliliter Inhalation 4 times a day 03/16/23 9 pm Unchanged aspirin (aspirin 81 mg Oral EC Tab) 1 Tablets By Mouth Every day 03/17/23 9 am Unchanged budesonide-formoterol (Symbicort 160/ 4.5 inhalation aerosol with adapter) 2 Puffs Inhalation 2 times a day 03/16/23 9 pm Unchanged bumetanide (bumetanide 2 mg Tab) 1 Tablets By Mouth Every day 03/17/23 9 am Unchanged carvedilol (carvedilol 25 mg Tab) 1 Tablets By Mouth 2 times a day 03/16/23 9 pm Unchanged cholecalciferol (cholecalciferol 1000 intl units (25 mcg) oral tablet) 1 Tablets By Mouth Every day 03/17/23 9 am Unchanged ferrous sulfate (ferrous sulfate 325 mg oral enteric coated tablet) 1 Tablets By Mouth Every day 03/17/23 9 am Unchanged fluticasone nasal (fluticasone 0.05 mg/ inh Nasal Muse) 1 Sprays Nasal Inhalation 2 times a day 03/16/23 9 pm Unchanged folic acid (folic acid 1 mg Tab) 1 Tablets By Mouth Every day 03/17/23 9 am Unchanged hydroxychloroquine (hydroxychloroquine 200 mg Tab) 1 Tablets By Mouth Every 12 hours 03/16/23 9 pm Unchanged isosorbide mononitrate (isosorbide mononitrate 30 mg ER Tab) 1 Tablets By Mouth Ev (more content not included)... Normal [facility] Inpatient Patient Summaryon 03-16-2023 Inpatient Patient Summary MELBA LEVY :1955 Visit Date:03/14/2023 Inpatient Discharge Instructions Your Care Team Admitting Physician - Dora GANN MD Consulting Physician - Jeremy Levy MD Reason for Your Visit Fall Your Diagnosis General weakness Acute alcohol intoxication Chronic hyponatremia Hypertension Hyperlipidemia Coronary artery disease Chronic diastolic heart failure Rheumatoid arthritis Chronic respiratory failure with hypoxia COPD without exacerbation No contraindication to deep vein thrombosis (DVT) prophylaxis Chronic pain Multiple falls Rib contusion Tests Performed Alcohol Level Automated Diff BMP CBC w/ Auto Diff [place] [place] Screen Urine eGFR Hepatic Function Panel Magnesium Level PT & PTT Sodium Level Troponin 0 Hr. Troponin 3 Hr. Troponin [address] Hr[address] Troponin [address] Abdomen/Pelvis w/o Contrast CT C-Spine w/o Contrast CT Chest w/o Contrast CT Head or Brain w/o Contrast XR Chest Single View XR Pelvis 1 or 2 Views This Is Your Medications List albuterol (albuterol HFA 90 mcg/inh MDI) albuterol-ipratropium (DuoNeb 2.5 mg-0.5 mg/3 mL Soln-Inh) aspirin (aspirin 81 mg Oral EC Tab) budesonide-formoterol (Symbicort 160/4.5 inhalation aerosol with adapter) bumetanide (bumetanide 2 mg Tab) carvedilol (carvedilol 25 mg Tab) cholecalciferol (cholecalciferol 1000 intl units (25 mcg) oral tablet) fentanyl (fentaNYL 25 mcg/hr Transderm ER Film) ferrous sulfate (ferrous sulfate 325 mg oral enteric coated tablet) fluticasone nasal (fluticasone 0.05 mg/inh Nasal Muse) folic acid (folic acid 1 mg Tab) hydroxychloroquine (hydroxychloroquine 200 mg Tab) isosorbide mononitrate (isosorbide mononitrate 30 mg ER Tab) leflunomide (leflunomide 10 mg oral tablet) lisinopril (lisinopril 10 mg Tab) lorazepam (LORazepam 1 mg Tab) multivitamin (Multi Vitamins oral tablet) nicotine (nicotine 21 mg/24 hr Transderm ER Film) nitroglycerin (nitroglycerin 0.4 mg sublingual Tab) oxybutynin (oxybutynin 5 mg Tab) oxycodone (oxyCODONE 5 mg Tab) potassium chloride (potassium chloride 20 mEq ER Tab) pravastatin (pravastatin 40 mg Tab) tamsulosin (tamsulosin 0.4 mg Cap) thiamine (thiamine 100 mg Tab) trazodone (traZODONE 50 mg Tab) Procedure History CABG - Coronary artery bypass graft (07/14/2004), Colonoscopy, History of lumbar spine surgery, punctured lung /rib surgery 2018, Triple coronary bypass. Discharge Vitals Temperature (Axillary) 36.7 ?C Heart Rate (Monitored) 70 Respiratory Rate 20 Blood Pressure 131/80 Weight 77.3 kg What to do next Instructions From Your Doctor Event Name Event Result Discharge Activity Ambulate as tolerated Discharge Diet(s) Regular Pending Diagnostic Test Results None Pharmacy Information [facility] New Follow Up Appointments after Discharge Follow Up with Leo CAMERON When: Within 5 to 7 days Where: [address] [place] [address] [place] [address] Business (1) Medications What How Much When Why Instructions Next Dose Changed fentanyl (fentaNYL 25 mcg/ hr Transderm ER Film) 1 Patches Topical Every 72 hours Duration: 7 Days Printed Prescription Changed lorazepam (LORazepam 1 mg Tab) 1 Tablets By Mouth 4 times a day as needed for Anxiety Acute alcohol intoxication Duration: 5 Days F41.9 anxiety Printed Prescription Changed oxycodone (oxyCODONE 5 mg Tab) 1 Tablets By Mouth Every 6 hours as needed for Breakthrough Pain Rib contusion Chronic pain Duration: 5 Days G89.29 chronic pain Printed Prescription Unchanged albuterol (albuterol HFA 90 mcg/ inh MDI) 2 Puffs Inhalation Every 4 hours as needed for Shortness of breath or wheezing Unchanged albuterol-ipratropium (DuoNeb 2.5 mg-0.5 mg/ 3 mL Soln-Inh) 3 Milliliter Inhalation 4 times a day Unchanged aspirin (aspirin 81 mg Oral EC Tab) 1 Tablets By Mouth Every day Unchanged budesonide-formoterol (Symbicort 160/ 4.5 inhalation aerosol with adapter) 2 Puffs Inhalation 2 times a day Unchanged bumetanide (bumetanide 2 mg Tab) 1 Tablets By Mouth Every day Unchanged carvedilol (carvedilol 25 mg Tab) 1 Tablets By Mouth 2 times a day Unchanged cholecalciferol (cholecalciferol 1000 intl units (25 mcg) oral tablet) 1 Tablets By Mouth Every day Unchanged ferrous sulfate (ferrous sulfate 325 mg oral enteric coated tablet) 1 Tablets By Mouth Every day Unchanged fluticasone nasal (fluticasone 0.05 mg/ inh Nasal Muse) 1 Sprays Nasal Inhalation 2 times a day Unchanged folic acid (folic acid 1 mg Tab) 1 Tablets By Mouth Every day Unchanged hydroxychloroquine (hydroxychloroquine 200 mg Tab) 1 Tablets By Mouth Every 12 hours Unchanged isosorbide mononitrate (isosorbide mononitrate 30 mg ER Tab) 1 Tablets By Mouth Every day Unchanged leflunomide (leflunomide 10 mg oral tablet) 1 Tablets By Mouth Every day Unchanged lisinopril (lisinopril 10 mg Tab) 1 Tabl (more content not included)... Normal [facility] Monitor Recordon 03-16-2023 Monitor Record [id number]#1. 00CD:127 Normal [facility] Monitor Record [id number]#1. 00CD:127 Normal [facility] Progress Note-Nurseon 2022 Progress Note-Nurse Pt discharged to [facility] via [facility]/stretcher at this time. Peripheral IV discontinued. Belongings transferred per family/significant other. Discharge instructions, scripts, and SBAR sent with transport. Report called to Obdulia at [facility] previously at 1743. Normal [facility] Progress Note-Physicianon Progress Note-Physician Assessment/Plan 1. General weakness (R53.1: Weakness) - frequent falls at home, likely secondary to chronic alcohol abuse, no signs of infection - treat as below - PT/OT evaluation ordered - pt willing to go to snf Ordered: 2. Acute alcohol intoxication (F10.929: Alcohol use, unspecified with intoxication, unspecified) - no longer intoxicated, stop IVF - continue PO thiamine and folate - CIWA protcol 3. Chronic hyponatremia (E87.1: Hypo-osmolality and hyponatremia) - acute on chronic, may be secondary to a combination of hypovolemic and chronic alcohol abuse - Na increased, stop IVF - reviewed and agree with nephrology recs 4. Hypertension (I10: Essential (primary) hypertension) - stable - continue PO coreg and imdur 5. Hyperlipidemia (E78.5: Hyperlipidemia, unspecified) - stable - continue PO pravastatin 6. Coronary artery disease (I25.10: Atherosclerotic heart disease of [place] coronary artery without angina pectoris) - stable - continue PO ASA, coreg, imdur, statin 7. Chronic diastolic heart failure (I50.32: Chronic diastolic (congestive) heart failure) - stable, not acutely decompensated - hold bumex, stopped IVF as above, restart bumex tomorrow - continue PO coreg, imdur 8. Rheumatoid arthritis (M06.9: Rheumatoid arthritis, unspecified) - stable - continue PO plaquenil and leflunamide 9. Chronic respiratory failure with hypoxia (J96.11: Chronic respiratory failure with hypoxia) - stable on baseline 3L NC 10. COPD without exacerbation (J44.9: Chronic obstructive pulmonary disease, unspecified) - stable, on baseline O2 needs - ordered duonebs INH - continue albuterol INH prn 11. No contraindication to deep vein thrombosis (DVT) prophylaxis (Z78.9: Other specified health status) - ordered SCDs, continue heparin subcutaneous bid Orders: Communication Order Physical Therapy Evaluate Patient, Develop a Plan of Care and Implement Plan Referral to Resource Center Subjective Pt denies any chest pain or sob. no nausea or vomiting. Review of Systems Constitutional: No fevers, chills Eye: Negative. Ear/Nose/Mouth/Throat: Negative. Respiratory: Negative Cardiovascular: Negative. Gastrointestinal: Negative. Genitourinary: Negative. Immunologic: Negative. Musculoskeletal: Negative. Integumentary: Negative. Neurologic: Negative. Psychiatric: Negative. All other systems are negative Objective Vitals & Measurements T: 36.4 ?C(Axillary) TMIN: 36.2 ?C(Axillary) TMAX: 36.7 ?C(Oral) HR: 62(Monitored) RR: 18 BP: 188/83 SpO2: 100% WT: 77.3 kg Intake & Output This visit (24 hour periods starting at 07:00 EDT) 03/16/23 * 03/15/23 03/14/23 Total Summary Intake mL -- 1 2,215.25 Output mL -- 220 1,200 Fluid Balance -- -219 1,015.25 Intake (7) Generic Diluent, magnesium sulfate mL -- -- 99.06 Sodium Chloride 0.9% mL -- -- 1,000 Sodium Chloride 0.9% intravenous solution 1,000 mL mL -- -- 1,107.69 hydrALAZINE mL -- -- 1 lorazepam mL -- 1 0.5 metoprolol mL -- -- 5 morphine mL -- -- 2 Total -- 1 2,215.25 Output (1) Urine Voided mL -- 220 1,200 Total -- 220 1,200 Counts (0) * This column has not completed the indicated time period. Physical Exam General: alert, no acute distress ENMT: oral mucosa moist, no pharyngeal erythema or exudate Cardiovascular: regular rate and rhythm, normal peripheral perfusion Respiratory: Lungs CTA, respirations non labored Abdomen: soft, NTND, +BS Skin: warm, dry, intact Extremities: no deformity, no trauma Neurological: LOC appropriate for age, CN II-XII intact, motor strength equal & normal bilaterally, sensation equal & normal bilaterally, speech normal Lab Results No qualifying data available. 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 Anxiety Aortic ectasia Arthritis, rheumatoid At risk for fall due to comorbid condition Benign hypertensive heart and kidney disease Benign prostate hyperplasia BMI 26.0-26.9,adult CAD (coronary artery disease) Centrilobular emphysema Chronic diastolic heart failure Chronic pain Chronic respiratory failure with hypoxia Cigarette nicotine dependence COPD without exacerbation Coronary artery disease Diastolic dysfunction Diastolic dysfunction without heart failure Frequent falls Hearing loss, bilateral Hepatic steatosis Hyperlipidemia Hypertension Hypokalemia Hyponatremia Hypoxemic respiratory failure, chronic Insomnia disorder Lumbar back pain Medication management Mild pulmonary hypertension Mixed hyperlipidemia Neuropathy Noncompliance with medication regimen OAB (overactive bladder) Overweight Requires oxygen therapy Rheumatoid arthritis Historical BMI 29.0-29.9,adult BPH without (more content not included)... Normal [facility] Comment on above: Result Comment: Elec tronically Signed By: SANJUANITA STRINGER, Dora\.br\Date and Time Signed: 03/16/23 09:31 EDT Auto Diffon 03-15-2023 Basophils/100 WBC (Bld) 1.3 % Normal 0.0-2.0 [facility] Comment on above: Order Comment: Order Added by Discern Expert. Performed By: #### 2 220626, [id number], 9163197, 7804690, 95293090, 77368385, 1725779 #### [facility] [address] [place] [address] Basophils/Leukocytes Auto (Bld) [Pure # fraction] 0.1 E9/L Normal 0.0-0.2 [facility] Comment on above: Order Comment: Order Added by Discern Expert. Performed By: #### 2 379359, 23656863, 0716332, 3153975, 15611149, 97163516, 0555781 #### [facility] [address] [place] [address] Eosinophils/100 WBC (Bld) 4.9 % Normal 0.0-8.0 [facility] Comment on above: Order Comment: Order Added by Discern Expert. Performed By: #### 2 315924, 91013509, 8985250, 3803946, 39545279, 50593890, 9871132 #### [facility] [address] [place] [address] Eosinophils/Leukocytes Auto (Bld) [Pure # fraction] 0.2 E9/L Normal 0.0-0.5 [facility] Comment on above: Order Comment: Order Added by Discern Expert. Performed By: #### 2 247898, 11343048, 9072377, 4398197, 55691845, 66450733, 8659426 #### [facility] [address] [place] [address] Lymphocytes/100 WBC (Bld) 13.8 % Low 14.0-50.0 [facility] Comment on above: Order Comment: Order Added by Discern Expert. Performed By: #### 2 414666, 32077892, 7390245, 3181852, 46431515, 09256225, 0323920 #### [facility] [address] [place] [address] Lymphocytes/Leukocytes Auto (Bld) [Pure # fraction] 0.6 E9/L Low 1.0-4.0 [facility] Comment on above: Order Comment: Order Added by Discern Expert. Performed By: #### 2 885418, 64714837, 4759167, 7974479, 31083914, 71618734, 8408818 #### [facility] [address] [place] [address] Monocytes/100 WBC (Bld) 10.9 % Normal 4.0-14.0 [facility] Comment on above: Order Comment: Order Added by Discern Expert. Performed By: #### 2 433650, 07004773, 3257563, 3527352, 77872352, 35232516, 3536521 #### [facility] [address] [place] [address] Monocytes/Leukocytes Auto (Bld) [Pure # fraction] 0.5 E9/L Normal 0.2-1.0 [facility] Comment on above: Order Comment: Order Added by Discern Expert. Performed By: #### 2 595071, 87503471, 1603743, 7220970, 25476000, 28075447, 7418517 #### [facility] [address] [place] [address] Neutrophils/100 WBC (Bld) 69.1 % Normal 36.0-75.0 [facility] Comment on above: Order Comment: Order Added by Ana Expert. Performed By: #### 2 177907, 05682243, 9289034, 7697120, 64540494, 31690734, 0963862 #### [facility] [address] [place] [address] [place] [address] Neutrophils/Leukocytes Auto (Bld) [Pure # fraction] 3.1 E9/L Normal 2.0-7.5 [facility] Comment on above: Order Comment: Order Added by Discern Expert. Performed By: #### 2 392879, 50636813, 3589942, 5553188, 99809437, 41367687, 0069532 #### [facility] [address] [place] [address] BMPon 03-15-2023 Anion gap [Moles/Vol] 9 mmol/L Normal 6-16 [facility] Comment on above: Performed By: #### 2 128704, 84589834, 8103851, 3088107, 04528229, 84019074, 9108126 #### [facility] [address] [place] [address] Calcium [Mass/Vol] 9.0 mg/dL Normal 8.9-11.1 [facility] Comment on above: Performed By: #### 2 519745, 94742351, 1107912, 6898992, 91237502, 96032596, 4775703 #### [facility] [address] [place] [address] Chloride [Moles/Vol] 98 mmol/L Low 101-111 [facility] Comment on above: Performed By: #### 2 222929, 65697225, 0239889, 3325227, 14351360, 63794630, 8641211 #### [facility] [address] [place] [address] CO2 [Moles/Vol] 31 mmol/L Normal 21-31 [facility] Comment on above: Performed By: #### 2 634836, 71429106, 0254334, 9170434, 82980129, 23060174, 9942809 #### [facility] [address] [place] [address] Creatinine [Mass/Vol] 0.9 mg/dL Normal 0.5-1.3 [facility] Comment on above: Performed By: #### 2 867418, 17643672, 6756229, 7940957, 64070595, 15922473, 5302086 #### [facility] [address] [place] [address] Glucose [Mass/Vol] 89 mg/dL Normal 55-199 [facility] Comment on above: Result Comment: If t his glucose result represents a fasting glucose, interpretation should refer to the following reference range: 55-99 mg/dL Performed By: #### 2 301188, 67943446, 2886582, 9838019, 19280194, 22582302, 0972383 #### [facility] [address] [place] [address] Potassium [Moles/Vol] 4.4 mmol/L Normal 3.5-5.3 [facility] Comment on above: Performed By: #### 2 177422, 71993861, 6857899, 4391741, 38540016, 98452250, 3979435 #### [facility] [address] [place] [address] Sodium [Moles/Vol] 134 mmol/L Low 135-145 [facility] Comment on above: Performed By: #### 2 308373, 98860387, 1306153, 8792601, 66261295, 74150654, 1124454 #### [facility] [address] [place] [address] Urea nitrogen [Mass/Vol] 10 mg/dL Normal 5-21 [facility] Comment on above: Performed By: #### 2 177438, 21775359, 8113039, 8976634, 18655945, 26626393, 0281710 #### [facility] [address] [place] [address] Urea nitrogen/Creatinine [Mass ratio] 11 No Units Normal 10-20 [facility] Comment on above: Performed By: #### 2 152704, 85358436, 6299928, 8983898, 92929205, 19092377, 6551422 #### [facility] [address] [place] [address] CBC w/ Auto Diffon 3 Erythrocyte distribution width (RBC) [Ratio] 14.2 % Normal 10.9-14.2 [facility] Comment on above: Performed By: #### 2 594769, 20733975, 8480978, 7790858, 56527888, 06726960, 4106637 #### [facility] [address] [place] [address] Hematocrit (Bld) [Volume fraction] 36.1 % Low 37.7-49.0 [facility] Comment on above: Performed By: #### 2 346748, 91376169, 3432865, 0840431, 95346129, 82311607, 7651978 #### [facility] [address] [place] [address] Hemoglobin (Bld) [Mass/Vol] 12.1 g/dL Low 13.5-17.5 [facility] Comment on above: Performed By: #### 2 479997, 07744426, 2205101, 0138981, 70371539, 44886470, 0667060 #### [facility] [address] [place] [address] MCH (RBC) [Entitic mass] 33.0 pg Normal 27.0-34.0 [facility] Comment on above: Performed By: #### 2 113267, 61749308, 3543361, 3664286, 65977587, 09295084, 8290682 #### [facility] [address] [place] [address] MCHC (RBC) [Mass/Vol] 33.5 g/dL Normal 31.4-36.0 [facility] Comment on above: Performed By: #### 2 372303, 58979655, 0119695, 5888013, 79731107, 42358438, 3939668 #### [facility] [address] [place] [address] MCV (RBC) [Entitic vol] 98.6 fL Normal 80.0-100.0 [facility] Comment on above: Performed By: #### 2 932003, 70644237, 2818364, 4337105, 81017490, 38866315, 7265737 #### [facility] [address] [place] [address] Platelet mean volume (Bld) [Entitic vol] 7.4 fL Normal 6.4-10.8 [facility] Comment on above: Performed By: #### 2 095332, 97436865, 1956668, 6116572, 44196606, 40882076, 0935477 #### [facility] [address] [place] [address] Platelets (Bld) [#/Vol] 178.0 E9/L Normal 150.0-500.0 [facility] Comment on above: Performed By: #### 2 562659, 28722359, 3414377, 7245484, 90794029, 08806967, 1759159 #### [facility] [address] [place] [address] RBC (Bld) [#/Vol] 3.7 E12/L Low 4.3-5.9 [facility] Comment on above: Performed By: #### 2 248127, 50628754, 0340991, 6921206, 59370142, 91258587, 3621140 #### [facility] [address] [place] [address] WBC corrected for nucl RBC Auto (Bld) [#/Vol] 4.5 E9/L Normal 4.0-11.0 [facility] Comment on above: Performed By: #### 2 699939, 49976289, 1995106, 0066249, 16123268, 52348522, 8865862 #### [facility] [address] [place] [address] CHEMISTRYOrdered By: SYSTEM SYSTEM on 03-15-2023 Anion gap [Moles/Vol] 9 mmol/L Normal 6 - 16 mEq/L [facility] Calcium [Mass/Vol] 9.0 mg/dL Normal 8.9 - 11. 1 mg/dL [facility] Chloride [Moles/Vol] 98 mmol/L Low 101 - 1 11 mmol/L [facility] CO2 [Moles/Vol] 31 mmol/L Normal 21 - 31 mmol/L [facility] Creatinine [Mass/Vol] 0.9 mg/dL Normal 0.5 - 1.3 mg/dL [facility] GFR/1.73 sq M.predicted among non-blacks MDRD (S/P/Bld) [Vol rate/Area] 94 mL/min/1.73 m2 Normal >=59mL/min/ 1.73 m2 FT Chem S Glucose [Mass/Vol] 89 mg/dL Normal 55 - 199 mg/dL [facility] Magnesium [Mass/Vol] 1.6 mg/dL Normal 1.3 - 2 .4 mg/dL [facility] Potassium [Moles/Vol] 4.4 mmol/L Normal 3.5 - 5.3 mmol/L [facility] Sodium [Moles/Vol] 134 mmol/L Low 135 - 145 mmol/L [facility] Urea nitrogen [Mass/Vol] 10 mg/dL Normal 5 - 21 mg/dL [facility] Urea nitrogen/Creatinine [Mass ratio] 11 mg/mg Normal 10 - 20 [facility] HEMATOLOGYOrdered By: SYSTEM SYSTEM on 03-15-2023 Basophils/100 WBC (Bld) 1.3 % Normal 0.0 - 2.0 % [facility] HemeAutoSS Basophils/Leukocytes Auto (Bld) [Pure # fraction] 0.1 E9/L Normal 0.0 - 0.2 E9/L [facility] HemeAutoSS Eosinophils/100 WBC (Bld) 4.9 % Normal 0.0 - 8.0 % [facility] HemeAutoSS Eosinophils/Leukocytes Auto (Bld) [Pure # fraction] 0.2 E9/L Normal 0.0 - 0.5 E9/L [facility] Lymphocytes/100 WBC (Bld) 13.8 % Low 14.0 - 50.0 % [facility] Lymphocytes/Leukocytes Auto (Bld) [Pure # fraction] 0.6 E9/L Low 1.0 - 4.0 E9/L [facility] Monocytes/100 WBC (Bld) 10.9 % Normal 4.0 - 14.0 % [facility] Monocytes/Leukocytes Auto (Bld) [Pure # fraction] 0.5 E9/L Normal 0.2 - 1.0 E9/L [facility] Neutrophils/100 WBC (Bld) 69.1 % Normal 36.0 - 75.0 % [facility] Neutrophils/Leukocytes Auto (Bld) [Pure # fraction] 3.1 E9/L Normal 2.0 - 7.5 E9/L [facility] HEMATOLOGYOrdered By: Liza Winchester on 03-15-2023 Erythrocyte distribution width (RBC) [Ratio] 14.2 % Normal 10.9 - 14.2 % [facility] Hematocrit (Bld) [Volume fraction] 36.1 % Low 37.7 - 49.0 % [facility] Hemoglobin (Bld) [Mass/Vol] 12.1 g/dL Low 13.5 - 17.5 gm/dL [facility] MCH (RBC) [Entitic mass] 33.0 pg Normal 27.0 - 34.0 pg [facility] MCHC (RBC) [Mass/Vol] 33.5 g/dL Normal 31.4 - 36.0 gm/dL [facility] MCV (RBC) [Entitic vol] 98.6 fL Normal 80.0 - 100.0 fL [facility] Platelet mean volume (Bld) [Entitic vol] 7.4 fL Normal 6.4 - 10.8 fL [facility] Platelets (Bld) [#/Vol] 178.0 E9/L Normal 150. 0 - 500.0 E9/L [facility] RBC (Bld) [#/Vol] 3.7 E12/L Low 4.3 - 5.9 E12/L [facility] WBC corrected for nucl RBC Auto (Bld) [#/Vol] 4.5 E9/L Normal 4.0 - 11.0 E9/L [facility] Inpatient Clinical Summaryon 03-15-2023 Inpatient Clinical Summary [address] [address] Clinical Summary Person Information: Name: MELBA LEVY Age: 67 Years : 1955 Sex: Male PCP: Leo GARZA Marital Status: Race: White Ethnicity: Non- or Language: Syrian Visit Id: Visit Reason: Multiple falls; FALL Speciality: Acuity: Enc Type: Observation Med Service: Medical Arrival: 03/14/2023 03:39:02 Discharge: Dispo Type: Admitted as IP to this Hosp Address: 07[address] [facility] [id number] Provider Notes: Diagnosis: 1:General weakness; 2:Acute alcohol intoxication; 3:Chronic hyponatremia; 4:Hypertension; 5:Hyperlipidemia; 6:Coronary artery disease; 7:Chronic diastolic heart failure; 8:Rheumatoid arthritis; 9:Chronic respiratory failure with hypoxia; 10:COPD without exacerbation; 11:No contraindication to deep vein thrombosis (DVT) prophylaxis; Rib contusion Problems Active Hyperlipidemia Coronary artery disease Chronic diastolic heart failure Chronic respiratory failure with hypoxia COPD without exacerbation Hepatic steatosis Alcohol intoxication Mild pulmonary hypertension AAA (abdominal aortic aneurysm) Anxiety Alcohol-induced thrombocytopenia Frequent falls Cigarette nicotine dependence Centrilobular emphysema Hypoxemic respiratory failure, chronic Alcohol-induced brain disorder Aortic ectasia Rheumatoid arthritis Hypertension Benign prostate hyperplasia Diastolic dysfunction CAD (coronary artery disease) Diastolic dysfunction without heart failure Insomnia disorder BMI 26.0-26.9,adult Hypokalemia Overweight Noncompliance with medication regimen Mixed hyperlipidemia Requires oxygen therapy At risk for fall due to comorbid condition Hearing loss, bilateral Medication management Arthritis, rheumatoid Alcohol abuse OAB (overactive bladder) Benign hypertensive heart and kidney disease Chronic pain Neuropathy Hyponatremia Lumbar back pain Smoking Status: Current Every Day Smoker Functional Status: Sensory Deficits: History of Falls: Mobility Assistance Prior to Admission: ADLs: Moderate assistance Current Level of Assistance for Self-Care/Mobility: Cognitive Status: Oriented x 3 Allergies cloNIDine (Dizzy spells) Measurements: Height: 185.42 cm Weight: 76.3 kg Blood Pressure: 179 mmHg / 93 mmHg BMI: 22.13 kg/m2 Procedures No Procedures Documented Immunizations No Immunizations Documented This Visit Final Med List: albuterol (albuterol HFA 90 mcg/inh MDI) 2 Puffs Inhalation every 4 hours as needed Shortness of breath or wheezing. Refills: 5. albuterol-ipratropium (DuoNeb 2.5 mg-0.5 mg/3 mL Soln-Inh) 3 Milliliter Inhalation 4 times a day. Refills: 0. aspirin (aspirin 81 mg Oral EC Tab) 1 Tablets By Mouth every day. Refills: 0. budesonide-formoterol (Symbicort 160/4.5 inhalation aerosol with adapter) 2 Puffs Inhalation 2 times a day. Refills: 11. bumetanide (bumetanide 2 mg Tab) 1 Tablets By Mouth every day. carvedilol (carvedilol 25 mg Tab) 1 Tablets By Mouth 2 times a day. Refills: 5. cholecalciferol (cholecalciferol 1000 intl units (25 mcg) oral tablet) 1 Tablets By Mouth every day. Refills: 0. fentanyl (fentaNYL 25 mcg/hr Transderm ER Film) 1 Patches Topical every 72 hours for 7 Days. Refills: 0. ferrous sulfate (ferrous sulfate 325 mg oral enteric coated tablet) 1 Tablets By Mouth every day. fluticasone nasal (fluticasone 0.05 mg/inh Nasal Muse) 1 Sprays Nasal Inhalation 2 times a day. Refills: 11. folic acid (folic acid 1 mg Tab) 1 Tablets By Mouth every day. Refills: 0. hydroxychloroquine (hydroxychloroquine 200 mg Tab) 1 Tablets By Mouth every 12 hours. isosorbide mononitrate (isosorbide mononitrate 30 mg ER Tab) 1 Tablets By Mouth every day. Refills: 0. leflunomide (leflunomide 10 mg oral tablet) 1 Tablets By Mouth every day. lisinopril (lisinopril 10 mg Tab) 1 Tablets By Mouth every day. lorazepam (LORazepam 1 mg Tab) 1 Tablets By Mouth 4 times a day as needed Anxiety for 5 Days. F41.9 anxiety. Refills: 0. multivitamin (Multi Vitamins oral tablet) 1 Tablets By Mouth every day. Refills: 0. nicotine (nicotine 21 mg/24 hr Transderm ER Film) 1 Patches Transdermal every day. nitroglycerin (nitroglycerin 0.4 mg sublingual Tab) 1 Tablets Sublingual every 5 minutes as needed for chest pain. If chest pain not relieved in 5 minutes after first dose, seek immediate medical attention. Refills: 0. oxybutynin (oxybutynin 5 mg Tab) 1 Tablets By Mouth 2 times a day. Refills: 5. oxycodone (oxyCODONE 5 mg Tab) 1 Tablets By Mouth every 6 hours as needed Breakthrough Pain for 5 Days. G89.29 chronic pain. Refills: 0. potassium chloride (potassium chloride 20 mEq ER Tab) 1 Tablets By Mouth every day. Refills: 0. pravastatin (pravastatin 40 mg Tab) 1 Table (more content not included)... Normal [facility] Inpatient Patient Summaryon 03-15-2023 Inpatient Patient Summary [address] [address] Patient Discharge Instructions PERSON INFORMATION Name: MELBA LEVY Date of : 1955 Current Date: 03/15/2023 09:24:46 PHYSICIANS Admitting Physician: Dora GANN MD Primary Care Physician: Leo GARZA PCP Comment: Discharge Diagnosis: 1:General weakness; 2:Acute alcohol intoxication; 3:Chronic hyponatremia; 4:Hypertension; 5:Hyperlipidemia; 6:Coronary artery disease; 7:Chronic diastolic heart failure; 8:Rheumatoid arthritis; 9:Chronic respiratory failure with hypoxia; 10:COPD without exacerbation; 11:No contraindication to deep vein thrombosis (DVT) prophylaxis; Rib contusion Condition at Discharge: Improved MELBA LEVY has been given the following list of follow-up instructions, prescriptions, and patient education materials: PATIENT FOLLOW-UP INFORMATION Diet: Regular Discharge Activity: Ambulate as tolerated Discharge Restrictions: Wound Care Instructions: Remove Your Dressing In Days Call Your Doctor For: IF UNABLE TO CONTACT YOUR PHYSICIAN AND YOU FEEL IT IS AN EMERGENCY, GO TO THE NEAREST EMERGENCY ROOM OR CALL 911 Home Treatment: Devices/Equipment: Cane Special Services: Additional Instructions: Primary Care Physician to provide the following pending test results: None Follow up: With: Address: When: Leo CAMERON [facility] [address], [address] [place], [place] [id number] Business (1) Within 5 to 7 days In the event that this physician does not participate in your insurance network, please consult with your insurance company to find a nearby participating provider. Comment: I, CAM, MELBA J, have received the attached patient education materials/instructions and have verbalized understanding: Patient Signature Date Clinican/Nurse Signature ___ Date HERE ARE THE MEDICATION CHANGES THAT OCCURRED DURING YOUR HOSPITAL STAY Medications to Continue Taking That Have Changed Printed Prescriptions START: fentanyl (fentaNYL 25 mcg/hr Transderm ER Film) 1 Patches Topical every 72 hours for 7 Days. Refills: 0. Last Dose: ___Next Dose: ___ STOP: fentanyl (fentaNYL 25 mcg/hr Transderm ER Film) 1 Patches Topical every 72 hours. START: lorazepam (LORazepam 1 mg Tab) 1 Tablets By Mouth 4 times a day as needed Anxiety for 5 Days. F41.9 anxiety. Refills: 0. Last Dose: ___Next Dose: ___ STOP: lorazepam (LORazepam 1 mg Tab) 1 Tablets By Mouth 4 times a day as needed Anxiety. Refills: 0. START: oxycodone (oxyCODONE 5 mg Tab) 1 Tablets By Mouth every 6 hours as needed Breakthrough Pain for 5 Days. G89.29 chronic pain. Refills: 0. Last Dose: ___Next Dose: ___ STOP: oxycodone (oxyCODONE 5 mg Tab) 1 Tablets By Mouth every 6 hours as needed Breakthrough Pain. Refills: 0. Medications to Continue with No Changes Other Medications albuterol (albuterol HFA 90 mcg/inh MDI) 2 Puffs Inhalation every 4 hours as needed Shortness of breath or wheezing. Refills: 5. Last Dose: ___Next Dose: ___ albuterol-ipratropium (DuoNeb 2.5 mg-0.5 mg/3 mL Soln-Inh) 3 Milliliter Inhalation 4 times a day. Refills: 0. Last Dose: ___Next Dose: ___ aspirin (aspirin 81 mg Oral EC Tab) 1 Tablets By Mouth every day. Refills: 0. Last Dose: ___Next Dose: ___ budesonide-formoterol (Symbicort 160/4.5 inhalation aerosol with adapter) 2 Puffs Inhalation 2 times a day. Refills: 11. Last Dose: ___Next Dose: ___ bumetanide (bumetanide 2 mg Tab) 1 Tablets By Mouth every day. Last Dose: ___Next Dose: ___ carvedilol (carvedilol 25 mg Tab) 1 Tablets By Mouth 2 times a day. Refills: 5. Last Dose: ___Next Dose: ___ cholecalciferol (cholecalciferol 1000 intl units (25 mcg) oral tablet) 1 Tablets By Mouth every day. Refills: 0. Last Dose: ___Next Dose: ___ ferrous sulfate (ferrous sulfate 325 mg oral enteric coated tablet) 1 Tablets By Mouth every day. Last Dose: ___Next Dose: ___ fluticasone nasal (fluticasone 0.05 mg/inh Nasal Muse) 1 Sprays Nasal Inhalation 2 times a day. Refills: 11. Last Dose: ___Next Dose: ___ folic acid (folic acid 1 mg Tab) 1 Tablets By Mouth every day. Refills: 0. Last Dose: ___Next Dose: ___ hydroxychloroquine (hydroxychloroquine 200 mg Tab) 1 Tablets By Mouth every 12 hours. Last Dose: ___Next Dose: ___ isosorbide mononitrate (isosorbide mononitrate 30 mg ER Tab) 1 Tablets By (more content not included)... Normal [facility] Interdisciplinary Note - PTo n 03-15-2023 Interdisciplinary Note - PT PT eval completed. Minimal to CGA for sit to stand and amb w/ FWW 25'. Will await additional orders. Initial AM-PAC 6 Clicks score is 20/24. Normal [facility] Magnesiumon 03-15-2023 Magnesium [Mass/Vol] 1.6 mg/dL Normal 1.3-2.4 [facility] Comment on above: Performed By: #### 2 [id number], [id number], 9910968, 9796883, [id number], [id number], 5665783 #### [facility] Laboratory [facility] [place] [address] Monitor Recordon 03-15-2023 Monitor Record [id number]. [id number]:127 Normal [facility] Progress Note - Parimutuel Clerk on 03-15-2023 Progress Note - Parimutuel Clerk CRM spoke with patient. Patient was previous rounded on by Dr Gann today and can dc when placement arranged. . No family in room. Patient is alert and oriented. Whiteboard updated and CRM contact # provided. Patient is from home with and is current with [facility] and plans to go to [facility] as a respite stay for 5 days and then wants to transition to [facility] for LTC. he states Brant from Hospice has berm working with on this plan. He says to call [phone]. CRM called and she states the same and says to reach out to [facility] for all the details. Normal [facility] Progress Note-Physicianon Progress Note-Physician Assessment/Plan 1. General weakness (R53.1: Weakness) - frequent falls at home, likely secondary to chronic alcohol abuse, no signs of infection - treat as below - PT/OT evaluation ordered - pt willing to go to snf Ordered: 2. Acute alcohol intoxication (F10.929: Alcohol use, unspecified with intoxication, unspecified) - no longer intoxicated, stop IVF - continue PO thiamine and folate - CIWA protcol 3. Chronic hyponatremia (E87.1: Hypo-osmolality and hyponatremia) - acute on chronic, may be secondary to a combination of hypovolemic and chronic alcohol abuse - Na increased, stop IVF - reviewed and agree with nephrology recs 4. Hypertension (I10: Essential (primary) hypertension) - stable - continue PO coreg and imdur 5. Hyperlipidemia (E78.5: Hyperlipidemia, unspecified) - stable - continue PO pravastatin 6. Coronary artery disease (I25.10: Atherosclerotic heart disease of [place] coronary artery without angina pectoris) - stable - continue PO ASA, coreg, imdur, statin 7. Chronic diastolic heart failure (I50.32: Chronic diastolic (congestive) heart failure) - stable, not acutely decompensated - hold bumex, stopped IVF as above, restart bumex tomorrow - continue PO coreg, imdur 8. Rheumatoid arthritis (M06.9: Rheumatoid arthritis, unspecified) - stable - continue PO plaquenil and leflunamide 9. Chronic respiratory failure with hypoxia (J96.11: Chronic respiratory failure with hypoxia) - stable on baseline 3L NC 10. COPD without exacerbation (J44.9: Chronic obstructive pulmonary disease, unspecified) - stable, on baseline O2 needs - ordered duonebs INH - continue albuterol INH prn 11. No contraindication to deep vein thrombosis (DVT) prophylaxis (Z78.9: Other specified health status) - ordered SCDs, continue heparin subcutaneous bid Orders: acetaminophen, 650 mg = 2 tab(s), Tab, Oral, q6hr PRN Pain, Routine, Start date 03/14/23 9:07:00 EDT, 03/14/23 9:07:00 EDT Al hydroxide/Mg hydroxide/simethicone, 30 mL, Susp-Oral, Oral, q6hr PRN Indigestion, Routine, Start date 03/14/23 9:07:00 EDT albuterol, 2.5 mg, 3 mL, Soln-Inh, Inhalation, q2hr PRN Shortness of breath or wheezing, Routine, Start date 03/15/23 7:50:00 EDT albuterol-ipratropium, 3 mL, Soln-Inh, Inhalation, QID, Routine, Start date 03/15/23 8:00:00 EDT diazepam, 5 mg = 1 mL, Injection, IV Push, q6hr PRN Seizure, Routine, Start date 03/14/23 10:43:00 EDT, 03/14/23 10:43:00 EDT folic acid, 1 mg = 1 tab(s), Tab, Oral, Once, Stop date 03/14/23 13:00:00 EDT, Routine, Start date 03/14/23 13:00:00 EDT folic acid, 1 mg = 1 tab(s), Tab, Oral, Daily, Routine, Start date 03/15/23 9:00:00 EDT lorazepam, 1 mg = 0.5 mL, Injection, IV Push, q1hr PRN Anxiety, Routine, Start date 03/14/23 12:35:00 EDT, 03/14/23 12:35:00 EDT magnesium hydroxide, 30 mL, Susp-Oral, Oral, q6hr PRN Constipation, Routine, Start date 03/14/23 9:07:00 EDT magnesium sulfate + Generic Diluent 50 mL, 2 gram = 50 mL, Soln-IV, IV Piggyback, Once, Stop date 03/14/23 10:00:00 EDT, Routine, Start date 03/14/23 10:00:00 EDT, 25 mL/hr, Infuse over 2 hour(s) ondansetron, 4 mg = 2 mL, Injection, IV Push, q6hr PRN Nausea, Routine, Start date 03/14/23 9:07:00 EDT, 03/14/23 9:07:00 EDT potassium chloride, 40 mEq = 2 tab(s), Tab-ER, Oral, Once, Stop date 03/14/23 10:00:00 EDT, Routine, Start date 03/14/23 10:00:00 EDT, 03/14/23 9:08:00 EDT thiamine, 100 mg = 1 tab(s), Tab, Oral, Daily, Routine, Start date 03/15/23 9:00:00 EDT thiamine, 100 mg = 1 tab(s), Tab, Oral, Once, Stop date 03/14/23 13:00:00 EDT, Routine, Start date 03/14/23 13:00:00 EDT Ambulate with Assistance Automated Diff Basic Metabolic Panel Below the Knee Intermittent Pneumatic Compression Device Cardiac Diet Cardiac Monitoring CBC w/ Auto Diff Clinical Donie Withdrawal Assessment Clinical Donie Withdrawal Assessment Clinical Donie Withdrawal Assessment Clinical Donie Withdrawal Assessment Clinical Donie Withdrawal Assessment Communication Order Physician to Nursing Consult to Nephrology eGFR Evaluate Need For Continued Telemetry Incentive Spirometry Intake and Output Magnesium Level Notify Provider Vital Signs Notify Provider Vital Signs Occupational Therapy Evaluate Patient, Develop a Plan of Care and Implement Plan Oxygen Protocol Physical Therapy Evaluate Patient, Develop a Plan of Care and Implement Plan Place in Status Pulse Oximetry Referral to Resource Center Vital Signs Vital Signs Vital Signs Weight Subjective pt denies any chest pain or sob. no nausea or vomiting. Review of Systems Constitutional: No fevers, chills Eye: Negative. Ear/Nose/Mouth/Throat: Negative. Respiratory: Negative Cardiovascular: Negative. Gastrointestinal: Negative. Genitourinary: Negative. Immunologic: Negative. Musculoskeletal: Negative. Integumentary: Negative. Neurologic: Negative. Psychiatric: Negative. All other systems are (more content not included)... Normal [facility] Comment on above: Result Comment: Elec tronically Signed By: SANJUANITA STRINGER, Dora\.br\Date and Time Signed: 03/15/23 07:54 EDT eGFRon 03-15-2023 GFR/1.73 sq M.predicted among non-blacks MDRD (S/P/Bld) [Vol rate/Area] 94 mL/min/1.73 m2 Normal >=59 [facility] Comment on above: Order Comment: Order added by Discern Expert. Result Comment: Marketing And Outreach Coordinator julee kidney disease could be indicated at eGFR's of less than 60 mL/min/1.73m2. Kidney failure is indicated at less than 15 mL/min/1.73m2. Performed By: #### 2 725392, [id number], 9679230, 6613295, 66339698, 07294111, 2730657 #### [facility] [address] [place] [address] Auto DiffOrdered By: SYSTEM SYSTEM on 03-14-2023 Basophils/100 WBC (Bld) 1.1 % Normal 0.0-2.0 F [facility] Comment on above: Order Comment: Order Added by Discern Expert. Performed By: #### 2 048646, 62123167, 0459996, 4633291, 30802115, 17313209, 0252932 #### [facility] [address] [place] [address] Basophils/Leukocytes Auto (Bld) [Pure # fraction] 0.1 E9/L Normal 0.0-0.2 [facility] Comment on above: Order Comment: Order Added by Discern Expert. Performed By: #### 2 795392, 13616244, 7209755, 5510602, 24098758, 93705822, 7557796 #### [facility] [address] [place] [address] Eosinophils/100 WBC (Bld) 6.3 % Normal 0.0-8.0 [facility] Comment on above: Order Comment: Order Added by Discern Expert. Performed By: #### 2 879677, 31386824, 8904919, 6342877, 07219084, 72086732, 6445294 #### [facility] [address] [place] [address] Eosinophils/Leukocytes Auto (Bld) [Pure # fraction] 0.3 E9/L Normal 0.0-0.5 [facility] Comment on above: Order Comment: Order Added by Discern Expert. Performed By: #### 2 273483, 97228541, 6162572, 5484692, 00033549, 16697828, 3269936 #### [facility] [address] [place] [address] Lymphocytes/100 WBC (Bld) 36.3 % Normal 14.0-50.0 [facility] Comment on above: Order Comment: Order Added by Ana Expert. Performed By: #### 2 278132, 60672255, 0646343, 5650677, 29849095, 83703671, 8787608 #### [facility] [address] [place] [address] Lymphocytes/Leukocytes Auto (Bld) [Pure # fraction] 1.7 E9/L Normal 1.0-4.0 [facility] Comment on above: Order Comment: Order Added by Ana Expert. Performed By: #### 2 763506, 88596173, 9911820, 4119914, 38007811, 19241462, 0643221 #### [facility] [address] [place] [address] Monocytes/100 WBC (Bld) 11.3 % Normal 4.0-14.0 [facility] Comment on above: Order Comment: Order Added by Discern Expert. Performed By: #### 2 737463, 36728085, 2274828, 4850399, 32201980, 25593735, 4687074 #### [facility] [address] [place] [address] Monocytes/Leukocytes Auto (Bld) [Pure # fraction] 0.5 E9/L Normal 0.2-1.0 [facility] Comment on above: Order Comment: Order Added by Discern Expert. Performed By: #### 2 990840, 61799174, 0315690, 4548657, 82292636, 33331614, 9346563 #### [facility] [address] [place] [address] Neutrophils/100 WBC (Bld) 45.0 % Normal 36.0-75.0 [facility] Comment on above: Order Comment: Order Added by Discern Expert. Performed By: #### 2 633704, 87170408, 1475796, 9377640, 25304934, 42482849, 6431722 #### [facility] [address] [place] [address] Neutrophils/Leukocytes Auto (Bld) [Pure # fraction] 2.1 E9/L Normal 2.0-7.5 [facility] Comment on above: Order Comment: Order Added by Discern Expert. Performed By: #### 2 741350, 42655302, 0815071, 5596446, 29394639, 24977190, 3524037 #### [facility] [address] [place] [address] BMPOrdered By: SYSTEM SYSTEM on 03-14-2023 Creatinine [Mass/Vol] 0.8 mg/dL Normal 0.5-1.3 [facility] Comment on above: Performed By: #### 2 696892, 37632374, 0065532, 5840276, 68222732, 63947382, 3085053 #### [facility] [address] [place] [address] Urea nitrogen [Mass/Vol] 6 mg/dL Normal 5-21 [facility] Comment on above: Performed By: #### 2 734394, 62266713, 3809344, 3285805, 50520442, 92410767, 3002658 #### [facility] [address] [place] [address] Anion gap [Moles/Vol] 10 mmol/L Normal 6-16 [facility] Comment on above: Performed By: #### 2 280417, 38086896, 5948963, 6664497, 91447105, 00794216, 4131889 #### [facility] [address] [place] [address] Calcium [Mass/Vol] 8.5 mg/dL Low 8.9-11.1 [facility] emisol Comment on above: Performed By: #### 2 617359, 03893018, 3457059, 9567440, 37844151, 43339961, 2001725 #### [facility] [address] [place] [address] Chloride [Moles/Vol] 89 mmol/L Low 101-111 [facility] Comment on above: Performed By: #### 2 804922, 09540983, 2217997, 2758557, 43564159, 30032958, 9260219 #### [facility] [address] [place] [address] CO2 [Moles/Vol] 30 mmol/L Normal 21-31 [facility] Cory avril Comment on above: Performed By: #### 2 537806, 65313662, 7537901, 0467922, 63762086, 55485833, 6940102 #### [facility] [address] [place] [address] Glucose [Mass/Vol] 94 mg/dL Normal 55-199 [facility] Comment on above: Result Comment: If t his glucose result represents a fasting glucose, interpretation should refer to the following reference range: 55-99 mg/dL Performed By: #### 2 372122, 77047168, 5271313, 9637192, 98213407, 68540274, 8124645 #### [facility] [address] [place] [address] Potassium [Moles/Vol] 3.7 mmol/L Normal 3.5-5.3 [facility] Comment on above: Performed By: #### 2 866602, 85888875, 0604008, 0068153, 85373034, 30424620, 9839929 #### [facility] [address] [place] [address] Sodium [Moles/Vol] 125 mmol/L Low 135-145 [facility] emisol Comment on above: Performed By: #### 2 839317, 93434034, 2572437, 8704880, 48919286, 82964250, 7867727 #### [facility] [address] [place] [address] BMPon 03-14-2023 Urea nitrogen/Creatinine [Mass ratio] 8 No Units Low 10-20 [facility] Comment on above: Performed By: #### 2 838656, 99385103, 3637514, 6827764, 39129453, 64860270, 0232179 #### [facility] [address] [place] [address] CBC w/ Auto DiffOrdered By: Tara Gore on 03-14-2023 Erythrocyte distribution width (RBC) [Ratio] 14.0 % Normal 10.9-14.2 [facility] Comment on above: Performed By: #### 2 978923, 08743981, 6635790, 9712442, 20536862, 86749201, 0376948 #### [facility] [address] [place] [address] Hematocrit (Bld) [Volume fraction] 31.8 % Low 37.7-49.0 [facility] Comment on above: Performed By: #### 2 534885, 68970074, 3756738, 2826882, 36496024, 75288090, 9125796 #### [facility] [address] [place] [address] Hemoglobin (Bld) [Mass/Vol] 10.8 g/dL Low 13.5-17.5 [facility] [facility] Comment on above: Performed By: #### 2 [id number], [id number], [id number], [id number], [id number], [id number], [id number] #### [facility] [address] [place] [address] MCH (RBC) [Entitic mass] 32.8 pg Normal 27.0-34.0 FT [facility] Comment on above: Performed By: #### 2 [id number], [id number], [id number], [id number], [id number], [id number], [id number] #### [facility] [address] [place] [address] MCHC (RBC) [Mass/Vol] 34.0 g/dL Normal 31.4-36.0 FT C [facility] Comment on above: Performed By: #### 2 340212, [id number], 4624114, 2211554, [id number], [id number], [id number] #### [facility] [address] [place] [address] MCV (RBC) [Entitic vol] 96.6 fL Normal 80.0-100.0 F [facility] Comment on above: Performed By: #### 2 401267, [id number], [id number], 6625695, [id number], [id number], [id number] #### [facility] [address] [place] [address] Platelet mean volume (Bld) [Entitic vol] 7.4 fL Normal 6.4-10.8 FT [facility] Comment on above: Performed By: #### 2 564887, [id number], 6550384, 8911546, [id number], 45124431, 3147959 #### [facility] [address] [place] [address] Platelets (Bld) [#/Vol] 183.0 E9/L Normal 150.0-500.0 FT [facility] Comment on above: Performed By: #### 2 629079, [id number], 4221492, 8416338, 44660291, 76452926, 7398820 #### [facility] [address] [place] [address] RBC (Bld) [#/Vol] 3.3 E12/L Low 4.3-5.9 FT [facility] Comment on above: Performed By: #### 2 015221, [id number], 3041959, 2097361, 98570336, 40272325, [id number] #### [facility] [address] [place] [address] WBC corrected for nucl RBC Auto (Bld) [#/Vol] 4.6 E9/L Normal 4.0-11.0 FT [facility] Comment on above: Performed By: #### 2 339689, [id number], 3026901, 9482637, 78222868, [id number], [id number] #### [facility] [address] [place] [address] CHEMISTRYOrdered By: SYSTEM SYSTEM on 03-14-2023 Sodium [Moles/Vol] 128 mmol/L Low 135 - 145 mmol/L [facility] Troponin I.cardiac [Mass/Vol] 7.30 pg/mL Low 15.90 - 38.40 pg/mL [facility] Troponin I.cardiac [Mass/Vol] 8.20 pg/mL Low 15.90 - 38.40 pg/mL [facility] Magnesium [Mass/Vol] 1.4 mg/dL Normal 1.3 - 2 .4 mg/dL [facility] Troponin I.cardiac [Mass/Vol] 7.50 pg/mL Low 15.90 - 38.40 pg/mL [facility] Ethanol [Mass/Vol] 342 mg/dL Invalid Interpretation Code <=7mg/dL [facility] Comment on above: Result Comment: Crit ical Result verified by repeat analysis\Critical Result S_ETOH:342.0 Called to IONA HERNANDEZ AT ER by ZOFIA GORE And Read Back For Confirmation at: 03/14/2023 05:42:47 Amphetamines Screen method >1000 ng/mL Ql (U) Negative (03/14/23 4:49 AM) Normal Negative [facility] Barbiturates Screen Ql (U) Negative (03/14/23 4:49 AM) Normal Negative [facility] Benzodiazepines Ql (U) Negative (03/14/23 4:49 AM) Normal Negative [facility] Cocaine Ql (U) Negative (03/14/23 4:49 AM) Normal Negative [facility] Opiates Screen Ql (U) Negative (03/14/23 4:49 AM) Normal Negative [facility] Phencyclidine Screen method >25 ng/mL Ql (U) Negative (03/14/23 4:49 AM) Normal Negative [facility] Tetrahydrocannabinol Screen method >50 ng/mL Ql (U) Negative (03/14/23 4:49 AM) Normal Negative [facility] Albumin/Globulin [Mass ratio] 0.8 {ratio} Low 1.1 - 2.2 [facility] ALP [Catalytic activity/Vol] 63 [iU]/d Normal 21 - 98 Int._Unit/L [facility] ALT No additional P-5'-P [Catalytic activity/Vol] 16 [iU]/d Normal 6 - 46 Int._Unit/L [facility] AST [Catalytic activity/Vol] 25 [iU]/d Normal 5 - 43 Int._Unit/L [facility] Urea nitrogen/Creatinine [Mass ratio] 8 mg/mg Low 10 - 20 [facility] COAGULATIONOrdered By: Apryl Gore on 03-14-2023 aPTT Coag (PPP) [Time] 33.0 s Normal 25.1 - 36.5 second(s) [facility] Coag PT Coag (PPP) [Time] 11.7 s Normal 9.4 - 1 2.5 second(s) [facility] Auto Coag CT Abdomen/Pelvis w/o Contra ston 03-14-2023 CT Abdomen/Pelvis w/o Contrast Exam Date/Time: 03/14/2023 07:50 EDT Reason for Exam: Abdominal trauma, blunt;Other (please specify) Report PLEASE SEE CT Chest w/o Contrast REPORT DATED: 03/14/2023. All CT scans at this facility use dose modulation, iterative reconstruction, and/or weight based dosing when appropriate to reduce radiation dose to as low as reasonably achievable. Ordering Provider: Zander Bull FINAL REPORT Dictated: 03/14/2023 8:24 am Chris Marx MD Signed (Electronic Signature): 03/14/2023 8:24 am Signed by: Chris Marx MD Transcribed by: THELMA Technologist: JOSÉ MANUEL, Technical Comments Rectal Contrast Given? No Oral contrast amount in ml's: 0 Normal [facility] CT Chest w/o Contraston CT Chest w/o Contrast Exam Date/Time: 03/14/2023 07:50 EDT Reason for Exam: Chest trauma, blunt;Other (please specify) Report IMPRESSION: NO ACUTE FRACTURE OR SIGNIFICANT POSTTRAUMATIC COMPLICATION IDENTIFIED. CHRONIC FINDINGS, NOTED. EXAM: CT Chest w/o Contrast, CT Abdomen/Pelvis w/ Contrast DATE: 03/14/2023 7:30 AM CLINICAL HISTORY: Chest trauma, blunt. COMPARISON: 08/14/2022. TECHNIQUE: Spiral imaging was obtained of the chest, abdomen and pelvis without contrast. All CT scans at this facility use dose modulation, iterative reconstruction, and/or weight based dosing when appropriate to reduce radiation dose to as low as reasonably achievable. CHEST CT FINDINGS: There are no acute fractures, evidence of pulmonary contusion, pneumothorax, organized hematoma, pleural or pericardial effusion, or significant change from 08/14/2022 identified. Numerous chronic rib deformities with mild adjacent pleural and parenchymal scarring, moderately extensive centrilobular emphysematous changes, postoperative changes from previous CABG with coronary artery calcifications and/or stents and mild to moderate calcific plaquing of a normal caliber thoracic aorta and great vessel origins and moderate degenerative changes of the thoracic spine are again noted. ABDOMEN AND PELVIS CT FINDINGS: There is no acute fracture, evidence of solid organ injury (within the limits of a noncontrast study), organized hematoma, free fluid, or other acute change from 08/14/2022 identified. Small gallstones within the dependent aspect of an otherwise unremarkable appearing gallbladder, moderate atherosclerotic plaquing of a mildly ectatic abdominal aorta and normal caliber branch vessels, mild to moderate degenerative changes of the lumbar spine as are again noted. Report Ordering Provider: Zander Bull FINAL REPORT Dictated: 03/14/2023 8:23 am Chris Marx MD Signed (Electronic Signature): 03/14/2023 8:23 am Signed by: Chris Marx MD Transcribed by: THELMA Technologist: JOSÉ MANUEL, Naresh Finley [facility] CT Head or Brain w/o Contras ton 03-14-2023 CT Head or Brain w/o Contrast Exam Date/Time: 03/14/2023 07:48 EDT Reason for Exam: Head trauma, moderate-severe;Other (please specify) Report IMPRESSION: NO ACUTE INTRACRANIAL PROCESS OR SIGNIFICANT CHANGE FROM 08/14/2022 IDENTIFIED. EXAM: CT Head or Brain w/o Contrast DATE: 03/14/2023 CLINICAL HISTORY: Head trauma, moderate-severe. COMPARISON: 08/14/2022. TECHNIQUE: Routine. All CT scans at this facility use dose modulation, iterative reconstruction, and/or weight based dosing when appropriate to reduce radiation dose to as low as reasonably achievable. FINDINGS: There is no intracranial hemorrhage, mass effect, midline shift, extra-axial collection, evidence of hydrocephalus, skull fracture, or a recent ischemic infarct identified. Mild generalized cerebral volume loss and mild patchy supratentorial white matter changes are again noted. Mild chronic-appearing opacification is present of the inferomedial right frontal sinus and some right ethmoid air cells. The mastoid air cells and visualized paranasal sinuses are essentially clear. Ordering Provider: Zander Bull FINAL REPORT Dictated: 03/14/2023 8:03 am Chris Marx MD Signed (Electronic Signature): 03/14/2023 8:03 am Signed by: Chris Marx MD Transcribed by: THELMA Technologist: JOSÉ MANUEL Finley [facility] CT Spine Cervical w/o Contra [place] 03-14-2023 CT Spine Cervical w/o Contrast Exam Date/Time: 03/14/2023 07:48 EDT Reason for Exam: Neck trauma;Other (please specify) Report IMPRESSION: NO FRACTURE OR EVIDENCE OF CERVICAL SPINE INJURY IDENTIFIED. EXAM: CT Spine Cervical w/o Contrast DATE: 03/14/2023 7:30 AM CLINICAL HISTORY: Neck trauma. COMPARISON: 09/02/2022. TECHNIQUE: Spiral unenhanced images were obtained of the cervical spine, with routine reconstructions performed. All CT scans at this facility use dose modulation, iterative reconstruction, and/or weight based dosing when appropriate to reduce radiation dose to as low as reasonably achievable. FINDINGS: The spine is visualized from the craniovertebral junction through the T1-T2 level. There is no fracture, dislocation, or acute paraspinal soft tissue abnormalities identified. Moderate degenerative changes and mild calcific plaquing of the carotid bulbs are again noted. Ordering Provider: Zander Bull FINAL REPORT Dictated: 03/14/2023 8:06 am Chris Marx MD Signed (Electronic Signature): 03/14/2023 8:06 am Signed by: Chris Marx MD Transcribed by: THELMA Technologist: Normal [facility] Consent for Treatmenton Consent for Treatment [id number] [place] [id number]. [id number] [facility] Consultation Noteon 03-14-20 23 Consultation Note Patient: JAZMÍN LEVY Age: 67 years Sex: Male : 1955 Associated Diagnoses: None Author: Jeremy Levy MD Chief Complaint 03/14/2023 10:35 EDT Fall 03/14/2023 3:40 EDT fall/ hit head Interval History 67-year-old gentleman with longstanding alcohol use presents to the hospital after a fall at home. We are being consulted for evaluation of hyponatremia with sodium jermain at 125. He has chronic hyponatremia with baseline sodium 130 from longstanding alcohol use. Denies chest pain, shortness of breath, nausea, vomiting, diarrhea, abdominal pain. Denies any seizure episodes or LOC today. Of note, he was found to have elevated alcohol level today of 342 mg/dL. Review of Systems Constitutional: Negative except as documented in history of present illness. Eye: No double vision, No visual disturbances. Ear/Nose/Mouth/Throat Respiratory: No shortness of breath, No cough, No sputum production, No hemoptysis. Cardiovascular: No chest pain, No palpitations. Gastrointestinal: No nausea, No vomiting, No diarrhea, No abdominal pain. Genitourinary: No dysuria, No hematuria. Hematology/Lymphatics: No bleeding tendency, No swollen lymph glands. Endocrine: No excessive thirst, No polyuria, No cold intolerance, No heat intolerance. Immunologic: No recurrent fevers, No recurrent infections. Musculoskeletal: No neck pain, No joint pain, No muscle pain. Integumentary: No rash, No pruritus, No skin lesion. Neurologic: Alert and oriented X4, No numbness, No tingling. Psychiatric: No anxiety, No depression, No marianela. Health Status Allergies: Nonallergic Reactions (Selected) Severity Not Documented CloNIDine- Dizzy spells., Allergies (1) Active Reaction cloNIDine Dizzy spells Current medications: (Selected) Inpatient Medications Ordered Al hydroxide/Mg hydroxide/simethicone 200 mg-200 mg-20 mg/5 mL oral suspension: 30 mL, Susp-Oral, Oral, q6hr PRN Indigestion, Routine, Start date 03/14/23 9:07:00 EDT LORazepam 2 mg/mL Inj: 1 mg = 0.5 mL, Injection, IV Push, q1hr PRN Anxiety, Routine, Start date 03/14/23 12:35:00 EDT, 03/14/23 12:35:00 EDT Milk of Magnesia 8% Susp-Oral: 30 mL, Susp-Oral, Oral, q6hr PRN Constipation, Routine, Start date 03/14/23 9:07:00 EDT NS 1000 mL Soln-IV 1,000 mL: 1,000 mL, IV, 75 mL/hr, Routine, Start date 03/14/23 9:07:00 EDT, 13.3 hour(s), Total volume (mL): 1,000, 75 kg, 1.96, m2 Zofran 4 mg/2 mL Injection: 4 mg = 2 mL, Injection, IV Push, q6hr PRN Nausea, Routine, Start date 03/14/23 9:07:00 EDT, 03/14/23 9:07:00 EDT acetaminophen 325 mg Tab: 650 mg = 2 tab(s), Tab, Oral, q6hr PRN Pain, Routine, Start date 03/14/23 9:07:00 EDT, 03/14/23 9:07:00 EDT diazepam 5 mg/mL Inj: 5 mg = 1 mL, Injection, IV Push, q6hr PRN Seizure, Routine, Start date 03/14/23 10:43:00 EDT, 03/14/23 10:43:00 EDT folic acid 1 mg Tab: 1 mg = 1 tab(s), Tab, Oral, Daily, Routine, Start date 03/15/23 9:00:00 EDT thiamine 100 mg Tab: 100 mg = 1 tab(s), Tab, Oral, Daily, Routine, Start date 03/15/23 9:00:00 EDT Prescriptions Prescribed DuoNeb 2.5 mg-0.5 mg/3 mL Soln-Inh: 3 mL, Inhalation, QID, 180 mL, Refill(s) 0, [facility] #[id number], 178, cm, 04/03/22 20:21:00 EDT, Height/Length Dosing, 78.1, kg, 04/03/22 20:21:00 EDT, Weight Dosing LORazepam 1 mg Tab: 1 mg = 1 tab(s), Oral, QID, PRN Anxiety, # 10 tab(s), Refills(s) 0 Multi Vitamins oral tablet: 1 tab(s), Oral, Daily, 30 tab(s), Refill(s) 0, [facility] #[id number], 178, cm, 04/03/22 20:21:00 EDT, Height/Length Dosing, 78.1, kg, 04/03/22 20:21:00 EDT, Weight Dosing Symbicort 160/4.5 inhalation aerosol with adapter: 2 puff(s), Inhalation, BID, 10.2 gm, Refill(s) 11, [facility] #[id number], 178, cm, 04/03/22 20:21:00 EDT, Height/Length Dosing, 78.1, kg, 04/03/22 20:21:00 EDT, Weight Dosing albuterol HFA 90 mcg/inh MDI: 2 puff(s), Inhalation, q4hr Shortness of breath or wheezing, 18 gm, Refill(s) 5, [facility] #[id number], 178, cm, 04/03/22 20:21:00 EDT, Height/Length Dosing, 78.1, kg, 04/03/22 20:21:00 EDT, Weight Dosing aspirin 81 mg Oral EC Tab: 81 mg = 1 tab(s), Oral, Daily, # 30 tab(s), Refills(s) 0, Pharmacy: [facility] #[id number], 178, cm, 04/03/22 20:21:00 EDT, Height/Length Dosing, 78.1, kg, 04/03/22 20:21:00 EDT, Weight Dosing carvedilol 25 mg Tab: 25 mg = 1 tab(s), Oral, BID, # 60 tab(s), Refills(s) 5, Pharmacy: [facility] #[id number], 178, cm, 04/03/22 20:21:00 EDT, Height/Length Dosing, 78.1, kg, 04/03/22 20:21:00 EDT, Weight Dosing cholecalciferol 1000 intl units (25 mcg) oral tablet: 25 mcg = 1 tab(s), Oral, Daily, # 30 tab(s), Refills(s) 0, Pharmacy: [facility] #[id number], 178, cm, 04/03/22 20:21:00 EDT, Height/Length Dosing, 78.1, kg, 04/03/22 20:21:00 EDT, Weight Dosing fluticasone 0.05 mg/inh Nasal Muse: 1 spray(s), Nasal, BID, 16 gram, Refill(s) 11, [facility] #[id number], 178, cm, 04/03/22 20:21:00 EDT, Height/Length Dosing, 78.1, kg, 04/03/22 20:21:00 EDT, Weight Dosing fo (more content not included)... Normal [facility] Comment on above: Result Comment: Elec tronically Signed By: Cam STRINGER, Jeremy\.br\Date and Time Signed: 03/14/23 15:20 EDT ED Clinical Summaryon 2022 ED Clinical Summary [place] [id number] ED Clinical Summary Person Information Name: MELBA LEVY/[place] Age: 67 Years : 1955 Sex: Male Language: Syrian PCP: Leo GARZA Marital Status: Visit Id: Visit Reason: Multiple falls; FALL Speciality: Acuity: 2 Enc Type: Observation Med Service: Emergency Arrival: 03/14/2023 03:39:02 Discharge: LOS: 000 06:08 Checkin: 03/14/2023 03:39:02 Checkout: 03/14/2023 09:47:03 Dispo Type: Admitted as IP to this [facility] EVENTS: Event Name Event Status Request Date/Time Start Date/Time Complete Date/Time Arrive Complete 03/14/2023 03:39:02 03/14/2023 03:39:02 03/14/2023 03:39:02 Document Home Meds Request 03/14/2023 03:39:02 Triage Complete 03/14/2023 03:39:02 03/14/2023 03:44:21 03/14/2023 03:44:21 Bed Assign Complete 03/14/2023 03:39:52 03/14/2023 03:39:52 03/14/2023 03:39:52 Dr Exam Complete 03/14/2023 03:39:52 03/14/2023 03:53:11 03/14/2023 03:53:11 RN Exam Complete 03/14/2023 03:39:52 03/14/2023 03:47:51 03/14/2023 03:47:51 Registration Complete 03/14/2023 03:53:11 03/14/2023 04:31:23 03/14/2023 04:31:23 Trauma II Request 03/14/2023 04:02:52 EKG Complete 03/14/2023 04:10:48 03/14/2023 05:14:26 Pending Labs Request 03/14/2023 04:10:48 Lab Complete 03/14/2023 04:10:48 03/14/2023 05:42:55 X-Ray Complete 03/14/2023 04:10:48 03/14/2023 04:28:24 03/14/2023 04:30:09 Consult Request 03/14/2023 04:10:48 Urine Collect Complete 03/14/2023 04:10:48 03/14/2023 05:12:28 CT Complete 03/14/2023 04:10:48 03/14/2023 07:30:40 03/14/2023 07:48:24 Pending Labs Complete 03/14/2023 04:17:11 03/14/2023 04:17:11 03/14/2023 04:42:02 Lab Complete 03/14/2023 04:17:11 03/14/2023 04:17:11 03/14/2023 04:42:02 Pending Labs Complete 03/14/2023 04:21:27 03/14/2023 04:21:27 03/14/2023 04:21:35 Lab Complete 03/14/2023 04:21:27 03/14/2023 04:21:27 03/14/2023 04:21:35 Wet Read Request 03/14/2023 04:30:09 Reg Complete Request 03/14/2023 04:31:23 Meds Admin Complete 03/14/2023 05:44:10 03/14/2023 06:27:26 Pending Labs Complete 03/14/2023 07:05:17 03/14/2023 07:05:17 03/14/2023 07:05:17 Dr Exam Complete 03/14/2023 07:11:00 03/14/2023 07:11:00 03/14/2023 07:11:00 Registration Complete 03/14/2023 07:11:00 03/14/2023 08:42:00 03/14/2023 08:42:00 CT Complete 03/14/2023 07:23:54 03/14/2023 07:30:40 03/14/2023 07:50:35 Meds Admin Complete 03/14/2023 07:30:32 03/14/2023 08:13:28 Pending Labs Cancel 03/14/2023 08:29:02 03/14/2023 08:34:08 Lab Cancel 03/14/2023 08:29:02 03/14/2023 08:34:08 Pending Labs Complete 03/14/2023 08:34:31 03/14/2023 08:34:31 03/14/2023 08:43:48 Lab Complete 03/14/2023 08:34:31 03/14/2023 08:34:31 03/14/2023 08:43:48 Patient Care Request 03/14/2023 08:42:01 Patient Care Request 03/14/2023 08:42:01 Patient Care Request 03/14/2023 08:42:01 Patient Care Request 03/14/2023 08:42:01 Consult Request 03/14/2023 08:42:43 Hospitalist Consult Request 03/14/2023 08:42:43 Meds Admin Complete 03/14/2023 08:45:37 03/14/2023 09:21:09 Bed Request Request 03/14/2023 08:47:55 Reg Bed Request Request 03/14/2023 08:47:55 Admit Request 03/14/2023 08:47:56 Consult Request 03/14/2023 08:48:12 Pending Labs Complete 03/14/2023 09:00:05 03/14/2023 09:36:19 Lab Complete 03/14/2023 09:00:05 03/14/2023 09:36:19 Patient Care Request 03/14/2023 09:07:36 Meds Admin Request 03/14/2023 09:07:36 Pending Labs Request 03/14/2023 09:07:36 Lab Request 03/14/2023 09:07:36 RT Request 03/14/2023 09:07:36 RT Tx/ABG Request 03/14/2023 09:07:36 Meds Admin Request 03/14/2023 09:08:29 ADDRESS: [address] [facility] [id number] PHYS DOC NOTES: MEDICAL INFORMATION: Prescriptions Given: Medications to Continue with No Changes Other Medications albuterol (albuterol HFA 90 mcg/inh MDI) 2 Puffs Inhalation every 4 hours as needed Shortness of breath or wheezing. Refills: 5. albuterol-ipratropium (DuoNeb 2.5 mg-0.5 mg/3 mL Soln-Inh) 3 Milliliter Inhalation 4 times a day. Refills: 0. aspirin (aspirin 81 mg Oral EC Tab) 1 Tablets By Mouth every day. Refills: 0. budesonide-formoterol (Symbicort 160/4.5 inhalation aerosol with adapter) 2 Puffs Inhalation 2 times a day. Refills: 11. bumetanide (bumetanide 2 mg Tab) 1 Tablets By Mouth every day. carvedilol (carvedilol 25 mg Tab) 1 Tablets By Mouth 2 times a day. Refills: 5. cholecalciferol (cholecalciferol 1000 intl units (25 mcg) oral tablet) 1 Tablets By Mouth every day. Refills: 0. ferrous sulfate (ferrous sulfate 325 mg oral enteric coated tablet) 1 Tablets By Mouth every day. fluticasone nasal (fluticasone 0.05 mg/inh Nasal Muse) 1 Sprays Nasal Inhalation 2 times a day. Refills: 11. folic acid (folic acid 1 mg Tab) 1 Tablets By Mouth every day. Refills: 0. hydroxychloroquine (hydroxychloroquine 200 mg Tab) 1 Tablets By Mouth every 12 hours. isosorbide mononitrate (isosorbide mononitrate 30 mg ER Tab) 1 Tablets By Mouth every day. Refills: 0. leflunomide (leflunomide 10 mg oral tablet) 1 Tablets By Mouth every day. lorazepam (LORazepam 1 mg Tab) 1 Tablets By (more content not included)... Normal [facility] ED Note-Physicianon 03-14-20 ED Note-Physician Basic Information Medical Decision Making MEDICAL DECISION MAKING Number and Complexity of Problems Differential Diagnosis: [] [facility] Data External documents reviewed: [] My EKG interpretation: [] My CT interpretation: [] My X-ray interpretation: [] My Ultrasound interpretation: [] Decision rules/scores evaluated: [] Discussed with: Hospitalist Treatment and Disposition ED Course: The care of the patient was transitioned to [place] upon shift change to follow-up with CT results and final disposition. The patient has presented with multiple falls. He has history of chronic alcohol use. His alcohol level is 342. The CT of the brain, cervical spine, chest abdomen and pelvis shows no acute process. The patient has borderline low magnesium. He was given 1 L of normal saline. 2 g of magnesium was given. The case is discussed with the hospitalist and the patient will be admitted to the hospitalist services. Shared decision making: [] Code status: [] Assessment/Plan 1. Sinus bradycardia (R00.1: Bradycardia, unspecified) 2. Hyponatremia (E87.1: Hypo-osmolality and hyponatremia) 3. Acute alcohol intoxication (F10.929: Alcohol use, unspecified with intoxication, unspecified) 4. Encounter for examination following a fall (Z04.3: Encounter for examination and observation following other accident) 5. Multiple falls (R29.6: Repeated falls) 6. Hypomagnesemia (E83.42: Hypomagnesemia) Orders: magnesium sulfate + Generic Diluent 50 mL, 2 gram = 50 mL, Soln-IV, IV Piggyback, Once, Stop date 03/14/23 8:45:00 EDT, STAT, Start date 03/14/23 8:45:00 EDT, 25 mL/hr, Infuse over 2 hour(s) Sodium Chloride 0.9% intravenous solution, 1,000 mL, Soln-IV, IV, Once, Stop date 03/14/23 7:30:00 EDT, STAT, Start date 03/14/23 7:30:00 EDT, Infuse over 61, minute(s) ED Physician consult Hospitalist for continued care [place] [place] Medications Administered Given ketorolac 30 mg/mL Inj 1 mL, 30 mg, IntraMuscular NS 1000 ml Bolus, 1000 mL, IV Disposition Plan Patient Discharge Condition Stable Discharge Disposition admitted to the hospital Discharge Prescription List Prescriptions No active prescription medications Follow-up No qualifying data available 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 Anxiety Aortic ectasia Arthritis, rheumatoid At risk for fall due to comorbid condition Benign hypertensive heart and kidney disease Benign prostate hyperplasia BMI 26.0-26.9,adult CAD (coronary artery disease) Centrilobular emphysema Chronic pain Cigarette nicotine dependence Diastolic dysfunction Diastolic dysfunction without heart failure Frequent falls Hearing loss, bilateral Hepatic steatosis Hypertension Hypokalemia Hyponatremia Hypoxemic respiratory failure, chronic Insomnia disorder Lumbar back pain Medication management Mild pulmonary hypertension Mixed hyperlipidemia Neuropathy Noncompliance with medication regimen OAB (overactive bladder) Overweight Requires oxygen therapy Rheumatoid arthritis Historical BMI 29.0-29.9,adult BPH without urinary obstruction Chronic obstructive pulmonary disease Rib fracture Procedure/Surgical History CABG - Coronary artery bypass graft (07/14/2004), Colonoscopy, History of lumbar spine surgery, punctured lung /rib surgery 2017, Triple coronary bypass. Medications Inpatient acetaminophen 325 mg Tab, 650 mg= 2 tab(s), Oral, q6hr, PRN Al hydroxide/Mg hydroxide/simethicone 200 mg-200 mg-20 mg/5 mL oral suspension, 30 mL, Oral, q6hr, PRN magnesium additive + premix generic diluent 50 mL magnesium additive + premix generic diluent 50 mL Milk of Magnesia 8% Susp-Oral, 30 mL, Oral, q6hr, PRN NS 1000 mL Soln-IV 1,000 mL, 1000 mL, IV potassium chloride 20 mEq ER Tab, 40 mEq= 2 tab(s), Oral, Once Zofran 4 mg/2 mL Injection, 4 mg= 2 mL, IV Push, q6hr, PRN Home albuterol HFA 90 mcg/inh MDI, 2 puff(s), Inhalation, q4hr, PRN, 5 refills aspirin 81 mg Oral EC Tab, 81 mg= 1 tab(s), Oral, Daily bumetanide 2 mg Tab, 2 mg= 1 tab(s), Oral, Daily carvedilol 25 mg Tab, 25 mg= 1 tab(s), Oral, BID, 5 refills cholecalciferol 1000 intl units (25 mcg) oral tablet, 25 mcg= 1 tab(s), Oral, Daily DuoNeb 2.5 mg-0.5 mg/3 mL Soln-Inh, 3 mL, Inhalation, QID ferrous sulfate 325 mg oral enteric coated tablet, 325 mg= 1 tab(s), Oral, Daily fluticasone 0.05 mg/inh Nasal Muse, 1 spray(s), Nasal, BID, 11 refills folic acid 1 mg Tab, 1 mg= 1 tab(s), Oral, Daily hydroxychloroquine 200 mg Tab, 200 mg= 1 tab(s), Oral, q12hr isosorbide mononitrate 30 mg ER Tab, 30 mg= 1 tab(s), Oral, Daily leflunomide 10 mg oral tablet, 10 mg= 1 tab(s), Oral, Daily LORazepam 1 mg Tab, 1 mg= 1 tab(s), Oral, QID, PRN Multi Vitamins oral tablet, 1 tab(s), Oral, Daily nicotine 21 mg/24 hr (more content not included)... Normal [facility] Comment on above: Result Comment: Elec tronically Signed By: Jodi Goff, Alvaro Alamo\.rhonda\Date and Time Signed: 09/01/23 09:23 EDT ED Patient Education Noteon 03-14-2023 ED Patient Education Note Normal [facility] ED Patient Summaryon 023 ED Patient Summary [address] [address] Patient Discharge Instructions Person Information Name: MELBA LEVY Age: 67 Years Arrival Date: 03/14/2023 03:39:02 Discharge Diagnosis: 1:Sinus bradycardia; 2:Hyponatremia; 3:Acute alcohol intoxication; 4:Encounter for examination following a fall; 5:Multiple falls; 6:Hypomagnesemia Primary Care Physician: Leo GARZA Provider Information Primary Provider: Zander Bull MD Advanced Detention Officer:None The exam and treatment you received in the Emergency Department were for an urgent problem and are not intended as complete care. It is important that you follow up with a doctor, nurse practitioner, or physician?s administrative sales assistant for ongoing care. If your symptoms become worse or you do not improve as expected and you are unable to reach your usual health care provider, you should return to the Emergency Department. We are available 24 hours a day. MELBA LEVY has been given the following list of patient education materials, prescriptions and follow-up instructions: Follow-up Instructions: In the event that this physician does not participate in your insurance network, please consult with your insurance company to find a nearby participating provider. Patient Education Materials: A MESSAGE TO ALL PATIENTS REGARDING OPIOIDS PRESCRIPTION OPIOIDS: WHAT YOU NEED TO KNOW Prescription opioids can be used to help relieve kpgnqjim-gr-zbqqqf pain and are often prescribed following a surgery or injury, or for certain health conditions. These medications can be an important part of the treatment but also come with serious risks. It is important to work with your healthcare provider to make sure you are getting the safest, most effective care. WHAT ARE THE RISKS AND SIDE EFFECTS OF OPIOID USE? Prescription opioids carry serious risks of addiction and overdose, especially with prolonged use. An opioid overdose, often marked by slowed breathing, can cause sudden . The use of prescription opioids can have a number of side effects as well, even when taken as directed: ? Tolerance?meaning you might need to take more of the medication for the same pain relief ? Physical dependence?meaning you have symptoms of withdrawal when a medication is stopped ? Increased sensitivity to pain ? Constipation ? Nausea, vomiting, and dry mouth ? Sleepiness and dizziness ? Confusion ? Depression ? Low levels of testosterone that can result in lower sex drive, energy, and strength ? Itching and sweating RISKS ARE GREATER WITH: ? History of drug misuse, substance use disorder, or overdose ? Mental health conditions (such as depression or anxiety) ? Sleep apnea ? Older age (65 years and older) ? Avoid alcohol while taking prescription opioids. Also, unless specifically advised by your health care provider, medications to avoid include: ? Benzodiazepines (such as Xanax or Valium) ? Muscle relaxants (such as Soma or Flexeril) ? Hypnotics (such as Ambien or Lunesta) ? Other prescription opioids KNOW YOUR OPTIONS Talk to your health care provider about ways to manage your pain that don?t involve prescription opioids. Some of these options may actually work better and have fewer risks and side effects. Options may include: ? Pain relievers such as acetaminophen, ibuprofen, and naproxen ? Some medication that are also used for depression or seizures ? Physical therapy and exercise ? Cognitive behavioral therapy, a psychological, goal-directed approach, in which patients learn how to modify physical, behavioral, and emotional triggers of pain and stress. IF YOU ARE PRESCRIBED OPIOIDS FOR PAIN: ? Never take opioids in greater amounts or more often than prescribed. ? Follow up with your primary health care provider. o Work together to create a plan on how to manage your pain. o Talk about ways to help manage your pain that don?t involve prescription opioids. o Talk about any and all concerns and side effects. ? Help prevent misuse and abuse o Never sell or share prescription opioids. o Never use another person?s prescription opioids. ? Store prescription opioids in a secure place and out of reach of others (this may include visitors, children, friends, and family). ? Safely dispose of unused prescription opioids: Find your community drug take-back program or your pharmacy mail-back program, or flush them down the toilet, following guidance from the Food and Drug Administration (www.fda.gov/Drugs/Res ourcesForYou). ? Visit www.cdc.gov/drugoverdo se to learn about the risks of opioids abuse and overdose. ? If you believe you may be struggling with addiction, tell your health respiratory care specialist and ask for guidance or call SAMHSA?S National Helpline at 2-973-940-HELP. v Source: [place] Department of Health and Human Services/Center for D (more content not included)... Normal [facility] ED Traumaon 03-14-2023 ED Trauma [id number]:127 Normal [facility] Ethanolon 03-14-2023 Ethanol [Mass/Vol] 342 mg/dL Abnormal <=7 [facility] Comment on above: Result Comment: Crit ical Result verified by repeat analysis\Critical Result S_ETOH:342.0 Called to IONA HERNANDEZ AT by ZOFIA GORE And Read Back For Confirmation at: 03/14/2023 05:42:47 Performed By: #### 2 [id number], [id number], 8834691, 4955054, 92425224, 32505267, 1881324 #### [facility] [address] [place] [address] [employer] Education Videoon [employer] Education Video Yes Patient Avoiding Infections in the Hospital Normal [facility] Hep Func PanelOrdered By: [employer] on 03-14-2023 Albumin [Mass/Vol] 3.1 g/dL Low 3.3-5.0 FT R emisol Comment on above: Performed By: #### 2 144167, 97549784, 2954481, 8972732, 86819463, 88759201, 3156731 #### [facility] [address] [place] [address] Bilirubin [Mass/Vol] 0.5 mg/dL Normal 0.0-1.1 FT [facility] Comment on above: Performed By: #### 2 605035, 67713309, 3522713, 9245424, 46859549, 75223779, 1105630 #### [facility] [address] [place] [address] Bilirubin.direct [Mass/Vol] 0.2 mg/dL Normal 0.1-0.4 FT [facility] Comment on above: Performed By: #### 2 572241, 15394773, 0146732, 2291790, 39711808, 30514613, 0539913 #### [facility] [address] [place] [address] Bilirubin.indirect [Mass or moles/Vol] 0.3 mg/dL Normal 0.1-0.9 [facility] Comment on above: Performed By: #### 2 114493, 61163168, 6471340, 0531764, 70818609, 77057699, 2811442 #### [facility] [address] [place] [address] Globulin (S) [Mass/Vol] 4.0 g/dL Normal 1.4-4.0 [facility] Comment on above: Performed By: #### 2 485117, 46200431, 6446058, 1414307, 29322566, 95859758, 8133678 #### [facility] [address] [place] [address] Protein [Mass/Vol] 7.1 g/dL Normal 6.0-7.8 [facility] [place] emisol Comment on above: Performed By: #### 2 287125, 91225943, 9648649, 5588602, 49532333, 24879200, 5189816 #### [facility] [address] [place] [address] Hep Func Panelon 03-14-2023 Albumin/Globulin (S) [Mass conc ratio] 0.8 Low 1.1-2.2 [facility] Comment on above: Performed By: #### 2 549755, 29265594, 8447238, 0339575, 22908948, 00700330, 9295063 #### [facility] [address] [place] [address] ALP [Catalytic activity/Vol] 63 Int._Unit/L Normal 21-98 [facility] Comment on above: Performed By: #### 2 796930, 75521215, 5364063, 7650960, 64075510, 45868432, 7485355 #### [facility] [address] [place] [address] ALT No additional P-5'-P [Catalytic activity/Vol] 16 Int._Unit/L Normal 6-46 [facility] Comment on above: Performed By: #### 2 844335, 69529597, 8092032, 7870379, 37792725, 06044984, 6429130 #### [facility] [address] [place] [address] AST [Catalytic activity/Vol] 25 Int._Unit/L Normal 5-43 [facility] Comment on above: Performed By: #### 2 249177, 75400747, 9758515, 3217188, 08314437, 94738419, 0607091 #### [facility] [address] [place] [address] Interdisciplinary Note - Zack e Manageron 03-14-2023 Interdisciplinary Note - Parimutuel Clerk P tis asleep in bed, no family present. Pt is current with [facility] , Contact information provided and white board updated. Pt is on 3L oxygen, Normal [facility] Comment on above: Result Comment: Elec tronically Signed By: Kimmy GARCIA, Dee\.rhonda\Date and Time Signed: 03/14/23 15:12 EDT Interdisciplinary Note - Simone n 03-14-2023 Interdisciplinary Note - OT 03/14/23: OT order received and chart review completed. OT eval deferred this date d/t ETOH level. Will check back 03/15/23. Normal [facility] Interdisciplinary Note - PTo n 03-14-2023 Interdisciplinary Note - PT Order received and chart reviewed. Will Hold PT services this date due to High ETOH levels. Will attempt again tomorrow Normal [facility] Interdisciplinary Note - Soc ial Workeron 03-14-2023 Interdisciplinary Note - Hide Examiner This SW responded to a consult on regarding a positive alcohol assessment. Patient's blood alcohol level is currently 342, therefore issues were not addressed at this time. Patient's blood alcohol level will continue to be monitored for appropriateness. SW will remain available. Normal [facility] MICRO OTHER TESTSOrdered By: Chelly Robles on 03-14-2023 Rapid COV Int NEG Ctl Pass (03/14/23 9:13 AM) Normal [facility] [place] Sero Rapid COV Int POS Ctl Pass (03/14/23 9:13 AM) Normal [facility] [place] Sero SARS-CoV+SARS-CoV-2 (COVID-19) Ag IA.rapid Ql (Resp) Not Detected (03/14/23 9:13 AM) Normal Not Detected [facility] [place] Sero Magnesiumon 03-14-2023 Magnesium [Mass/Vol] 1.4 mg/dL Normal 1.3-2.4 [facility] Comment on above: Performed By: #### 2 276035, 85562202, 8571414, 2974090, 65339999, 20158463, 8582551 #### [facility] [address] [place] [address] Monitor Recordon 03-14-2023 Monitor Record [id number]. [id number]:127 Normal [facility] PT & PTTon 03-14-2023 aPTT Coag (PPP) [Time] 33.0 second(s) Normal 25.1-36.5 [facility] Comment on above: Result Comment: Para meter 15 days - 4 weeks 1 - 5 months 6 - 11 months 1 - 5 years 6 - 10 years 11 - 17 years PTT Mean: 35.4 (27.6-45.6) Mean: 33.5 (24.8-40.7) Mean: 32.4 (25.1-40.7) Mean: 31.6 (24.0-39.2) Mean: 31.6 (26.9-38.7) Mean: 31.0 (24.6-38.4) Pediatric Reference ranges were obtained from a study by Ishan Osorio et al. prepared from 1437 samples obtained at 7 different centers using the same coagulation reagent and instrumentation as [facility]. Currently there are no coagulation studies available worldwide for children to 14 days, and no normal ranges. Heparin therapeutic range (represented by Anti-Factor Xa activity of 0.2 - 0.4 U/mL) corresponds to PTT of 56.6 - 109.0 sec. Performed By: #### 2 332790, 81135543, 0492145, 8710849, 68369313, 07959518, 7207462 #### [facility] [address] [place] [address] PT Coag (PPP) [Time] 11.7 second(s) Normal 9.4-12.5 [facility] Comment on above: Result Comment: 15 d ays - 4 weeks 1 - 5 months 6 -11 months 1-5 years 6-10 years 11 -17 years Mean: 11.2 (9.5-12.6) Mean: 11.0 (9.7-12.8) Mean: 11.0 (9.8-13.0) Mean: 11.3 (9.9-13.4) Mean: 11.7 (10.0-14.6) Mean: 11.8 (10.0 - 14.1) Pediatric Reference ranges were obtained from a study by momo Blakely al. prepared from 1437 samples obtained at 7 different centers using the same coagulation reagent and instrumentation as [facility]. Currently there are no coagulation studies available worldwide for children to 14 days, and no normal ranges. Performed By: #### 2 133727, 80798757, 1009103, 7138254, 67529390, 46869684, 2599851 #### [facility] [address] [place] [address] PT & PTTOrdered By: Tara Gore on 03-14-2023 INR Coag (PPP) [Relative time] 1.0 {INR} Invalid Interpretation Code [facility] Auto Co[facility] Comment on above: Result Comment: INR results are specifically intended to assess patients stabilized on long-term Anticoagulation therapy suggested INR?s ?Less Intensive Anticoagulation? 2.0 ? 3.0 Conventional Range 3.0 ? 4.5 Performed By: #### 2 437662, 68035725, 4292823, 4635537, 12863045, 68303307, 6968688 #### [facility] [address] [place] [address] Pre-Arrival Noteon 3 Pre-Arrival Note Pre-Arrival Summary Name: , [facility] Current Date: 03/14/2023 03:41:48 EDT Gender: Male Date of : Age: 57 Pre-Arrival Type: EMS ETA: 03/14/2023 03:35:00 EDT Primary Care Physician: Presenting Problem: Pre-Arrival User: Referring Source: Location: [place] Completion Date/Time: 03/14/2023 03:32:00 [facility] Emergency Department Pre-Hospital Report Form Vital Signs:106/66 54 16 96% Pre-Hospital Report:fall out of bed; arm pain; ETOH + Treatment in Route: Response to Treatment: Misc. Issues: Normal [facility] Rapid COVID Antigen (MC)on 03-14-2023 Rapid COV Int NEG Ctl Pass Normal [facility] Comment on above: Performed By: #### 2 141618, 56799635, 7305416, 6065462, 13229145, 51643361, 5597304 #### [facility] [address] [place] [address] Rapid COV Int POS Ctl Pass Normal [facility] Comment on above: Performed By: #### 2 023539, 83251018, 7252664, 0252598, 55938276, 75438465, 8299055 #### [facility] [address] [place] [address] SARS-CoV+SARS-CoV-2 (COVID-19) Ag IA.rapid Ql (Resp) Not detected Normal Not Detected [facility] Comment on above: Result Comment: The Ensocareitor? System for Rapid Detection of SARS-CoV-2 is a chromatographic digital immunoassay intended for the direct and qualitative detection of SARS-CoV-2 nucleocapsid antigens in nasal swabs from individuals who are suspected of COVID-19 by their healthcare provider within the first five days of the onset of symptoms. Negative results should be treated as presumptive, do not rule out SARS-CoV-2 infection and should not be used as the sole basis for treatment or patient management decisions, including infection control decisions. Negative results should be considered in the context of a patient?s recent exposures, history and the presence of clinical signs and symptoms consistent with COVID-19, and confirmed with a molecular assay, if necessary, for patient management. For in vitro diagnostic use. In the [place], only for use under an Emergency Use Authorization. In the [place], this test has not been FDA cleared or approved; this test has been authorized by FDA under an EUA for use by authorized laboratories; use by laboratories certified under the CLIA, 42 U.S.C. ?263a, that meet requirements to perform moderate, high, or waived complexity tests and at the Point of Care (POC), i.e., in patient care settings operating under a CLIA Certificate of Waiver, Certificate of Compliance, or Certificate of Accreditation. This test has been authorized only for the detection of proteins from SARS-CoV-2, not for any other viruses or pathogens; and, in the [facility], this test is only authorized for the duration of the declaration that circumstances exist justifying the authorization of emergency use of in vitro diagnostics for detection and/or diagnosis of the virus that causes COVID-19 under Section 564(b)(1) of the Act, 21 U.S.C. ? 360bbb-3(b)(1), unless the authorization is terminated or revoked sooner. Performed By: #### 2 351491, 63879157, 5283375, 5439964, 29669545, 38395408, 7377894 #### [facility] [address] [place] [address] Sodiumon 03-14-2023 Sodium [Moles/Vol] 128 mmol/L Low 135-145 [facility] Comment on above: Performed By: #### 2 597188, 21136963, 6833360, 4815928, 23104146, 94331913, 3724923 #### [facility] [address] [place] [address] Troponin 0 Hr.on 03-14-2023 Troponin I.cardiac [Mass/Vol] 6.70 pg/mL Low 15.90-38.40 [facility] Comment on above: Result Comment: The 95% CI (Confidence Interval) PPV (Positive Predictive Value) for myocardial infarction in females is 38 pg/mL, in males 51 pg/mL. The results should be used in conjunction with clinical conditions of myocardial infarction. (Access High Sensitivity Troponin I Instructions For Use, [employer], February 2018) Performed By: #### 2 921050, 69728143, 9921486, 5686323, 39009301, 59553300, 9631298 #### [facility] [address] [place] [address] Troponin 3 Hr.on 03-14-2023 Troponin I.cardiac [Mass/Vol] 7.50 pg/mL Low 15.90-38.40 [facility] Comment on above: Result Comment: The 95% CI (Confidence Interval) PPV (Positive Predictive Value) for myocardial infarction in females is 38 pg/mL, in males 51 pg/mL. The results should be used in conjunction with clinical conditions of myocardial infarction. (Access High Sensitivity Troponin I Instructions For Use, [employer], February 2018) Performed By: #### 2 216901, 88369264, 8231484, 5127225, 91261988, 64256006, 3865009 #### [facility] [address] [place] [address] Troponin 6 Hr.on 03-14-2023 Troponin I.cardiac [Mass/Vol] 8.20 pg/mL Low 15.90-38.40 [facility] Comment on above: Result Comment: The 95% CI (Confidence Interval) PPV (Positive Predictive Value) for myocardial infarction in females is 38 pg/mL, in males 51 pg/mL. The results should be used in conjunction with clinical conditions of myocardial infarction. (Access High Sensitivity Troponin I Instructions For Use, [employer], February 2018) Performed By: #### 2 753211, 62765367, 1405001, 0658226, 97265554, 15070062, 5115872 #### [facility] [address] [place] [address] Troponin 9 Hr.on 03-14-2023 Troponin I.cardiac [Mass/Vol] 7.30 pg/mL Low 15.90-38.40 [facility] Comment on above: Result Comment: The 95% CI (Confidence Interval) PPV (Positive Predictive Value) for myocardial infarction in females is 38 pg/mL, in males 51 pg/mL. The results should be used in conjunction with clinical conditions of myocardial infarction. (Access High Sensitivity Troponin I Instructions For Use, Mariah Erna, February 2018) Performed By: #### 2 729824, 51747620, 0755460, 4253931, 32261826, 04120805, 4010858 #### [facility] [address] [place] [address] U Drug Screenon 03-14-2023 Amphetamines Screen method >1000 ng/mL Ql (U) Negative Normal Negative [facility] Comment on above: Result Comment: Nega tive Cutoff: <1000 ng/mL Performed By: #### 2 930581 #### [facility] [address] [place] [address] Barbiturates Screen Ql (U) Negative Normal Negative [facility] Comment on above: Result Comment: Nega tive Cutoff: <200 ng/mL Performed By: #### 2 897817 #### [facility] [address] [place] [address] Benzodiazepines Ql (U) Negative Normal Negative [facility] Comment on above: Result Comment: Nega tive Cutoff: <200 ng/mL Performed By: #### 2 714569 #### [facility] [address] [place] [address] Cocaine Ql (U) Negative Normal Negative [facility] Comment on above: Result Comment: Nega tive Cutoff: <300 ng/mL Performed By: #### 2 659156 #### [facility] [address] [place] [address] Opiates Screen Ql (U) Negative Normal Negative [facility] Comment on above: Result Comment: Nega tive Cutoff: <300 ng/mL Performed By: #### 2 847337 #### [facility] [address] [place] [address] Phencyclidine Screen method >25 ng/mL Ql (U) Negative Normal Negative [facility] Comment on above: Result Comment: Nega tive Cutoff: <25 ng/mL These drug screen results are to be used for medical (i.e., treatment) purposes only. Unconfirmed drug screening results must not be used for non-medical purposes (e.g., employment testing, legal testing). Performed By: #### 2 831449 #### [facility] [address] [place] [address] Tetrahydrocannabinol Screen method >50 ng/mL Ql (U) Negative Normal Negative [facility] Comment on above: Result Comment: Nega tive Cutoff: <50 ng/mL Performed By: #### 2 481582 #### [facility] [address] [place] [address] XR Chest Single Viewon 03-14 XR Chest Single View Exam Date/Time: 03/14/2023 04:30 EDT Reason for Exam: Chest pain Report IMPRESSION: SUSPECTED SKIN FOLD PROJECTING ON THE UPPER LATERAL RIGHT CHEST RATHER THAN A SMALL PNEUMOTHORAX. THIS COULD BE FURTHER ASSESSED WITH FOLLOW-UP UPRIGHT PA AND LATERAL IMAGES AND LEFT LATERAL DECUBITUS CHEST IMAGE. CLINICAL HISTORY: Chest pain. Multiple falls. Reportedly patient uncooperative and intoxicated. COMPARISON: 12/12/2021. COMMENT: AP portable supine. There are sternotomy wires and mediastinal surgical clips. The heart is normal in size. There is calcification at the aortic arch. The mediastinum is unremarkable. There are accentuated basilar lung markings, possibly due to atelectasis or fibrosis. There is curvilinear line paralleling the upper lateral right chest wall, suspected be due to a skin fold projecting on the upper lateral right chest rather than a small pneumothorax. This could be further assessed with follow-up upright PA and lateral images and left lateral decubitus chest image. No consolidated airspace opacification nor pleural effusion is evident. There are multiple right rib deformities due to old healed fractures. Ordering Provider: Zander Bull FINAL REPORT Dictated: 03/14/2023 8:18 am Santy Gonzalez M.D. Signed (Electronic Signature): 03/14/2023 8:18 am Signed by: Santy Gonzalez M.D. Transcribed by: THELMA Technologist: TAMMIE Technical Comments Radiation Dose: Ka,r in mGy = na DAP = na Normal [facility] XR Pelvis 1 or 2 Viewson XR Pelvis 1 or 2 Views Exam Date/Time: 03/14/2023 04:30 EDT Reason for Exam: Trauma;Other (please specify) Report IMPRESSION: NO DISPLACED FRACTURE OR SIGNIFICANT POSTTRAUMATIC COMPLICATION IDENTIFIED. EXAM: XR Pelvis 1 or 2 Views DATE: 03/14/2023 CLINICAL HISTORY: Trauma. COMPARISON: Chest, abdomen and pelvis CTs 08/14/2022. TECHNIQUE: An AP radiograph of the pelvis was obtained. FINDINGS: The patient is mildly rotated to the right. There is no displaced fracture, dislocation, pelvic diastases, evidence of significant hematoma, or other acute findings identified. Ordering Provider: Zander Bull FINAL REPORT Dictated: 03/14/2023 8:36 am Chris Marx MD Signed (Electronic Signature): 03/14/2023 8:36 am Signed by: Chris Marx MD Transcribed by: THELMA Technologist: TAMMIE Technical Comments Radiation Dose: Ka,r in mGy = na DAP = na Normal [facility] eGFROrdered By: SYSTEM [employer] on 03-14-2023 GFR/1.73 sq M.predicted among non-blacks MDRD (S/P/Bld) [Vol rate/Area] 98 mL/min/1.73 m2 Normal >=59 [facility] Chem S Comment on above: Order Comment: Order added by Discern Expert. Result Comment: Marketing And Outreach Coordinator julee kidney disease could be indicated at eGFR's of less than 60 mL/min/1.73m2. Kidney failure is indicated at less than 15 mL/min/1.73m2. Performed By: #### 2 [id number] #### [facility] [address] [place] [address] Home Health Recordson 2022 Home Health Records [id number]#1.0 [id number]:127 Normal [facility] Hospice Recordson 10-18-2022 Hospice Records [id number]#1.0 0CD:127 Normal [facility] Insurance Correspondence Off iceon 10-17-2022 Insurance Correspondence Office [id number]#[id number] 0CD:127 Normal [facility] EMS Documentationon 08-31-19 EMS Documentation Please click on link to see report pdfCD:[id number] vXLWhEpx0PDEkZiRLXhQug DKKnkF87vzSBnuPMbUNO3Z yAwIFIgMTIwNyAwIFIgMiA w DUUnKBFbJVErPTAzTQV9LT TgLLHyS0Gbz8CSc4snDX4g NRMzEXQ6GWJwDKG6IHAeZJ 1oP6EjuJRm ICV5TZPqJDYeOLIdIKY0JJ SkFFJnTWXrwKUEb4fnJC8j KUXrPQY8MXWeTFW4WDTiDY 1mOUsmIB0z XTY1CJ0FKAGsoySkSVWtYM BwKPEhVqVlh4WeW6AwEGln U78sa8LCkFHsTJi3E1VIEZ MvMWV2XSTq Uj4+Y2NdtrD3VG7KXNKxKO EzMyAwIFIvVFQxIDExMzQg DIVPPl0wZPMqY5BvcKruEC PJP0HyhPBn R7C6fIfGoPJ7OCCuHoV2SP LdVu0XY4DgMXF9TERuGROg ZBTGBh3lFk14FBWcZKVbX6 PosVP2BDQt UZ26iiK2I2P7xNCuONBsLZ 4HBQLjP6V+PgplbmRvYmoK OkXoST8xzta2IW3SFF2skI kxUKO7ORO+ NbI8bmJsiFrsL5EeNFZeHR SfOYXuokvqLES7BoW9VXQg OnIuUujtJvV6CUKsASpcKe AgIHNjbgox GRE3OwZvXNflVCViJv6wBD NqAPVbHlC0HLTwShKHTJIh WtPzRbE2PdMtUHG6ISSoQm O6IDH6SlX8 WyZnXCyqHlBmXTzjEQ59Ni glFW30DNHzKaDpADBeWAGr WsJAVE70PPaiATEqhhthYN X0YPhtDKM2 ZLU2Mi2kHCJzWQnoMWw8TK NxMiZPFOi3ZoAxGRR3AVpj HTX5RWO9Mn73MfCqSYvyKR z8ABQlTbWB WdU5Onm6LjR1INcqLDE8PX N3Is18ZfUuNDmlTPk1NBRk NrRGTEKqh8DrGsMdDLtiJl 6tLDZeUEY7 Mqg9UUZfLG07AZWnpqUGKj sjWtbjOZD7NBuaXb5kHSQy KDM9UrSqBaZmIX56CNNuad UKZgozNDQu XMD2VXttIw7bHULhPBE6Xa OhMuLsJF29YLWqmdGEIbj2 CKHoUcL8GYloNk5kZHEaCH 42NTUgLTku UQMrxgSZTictMHX6IkYjZU FhGBC8Gp85NsUiFOJkYzJ6 OEXgBdLRCDz4GhAxJBY0Aw YuMTEyIDE2 RR58HNGiXSTzDsL6DNIxXi XCFtT5Gds0HeC1QzIyUFTh MAG4UR43MTCeACTrGkX9IS JlCmYKNTEy HeFtRwI4QIjdSMVuJPTbIe X8UX0tNyCxJge0ZXBjUgXP ODYvHrK3PvblWETwUfcoFn TsHE0nCdP8 XHLfXTlkKxChRZxxNl0uLH HeXJ07FEVgVWblNFMjsoQF ObsjVdhwIVM2ZZeyPp1sKL ZoJH69XVDx LTkuODMgcmUKZgoxNzcuMT I9OEmkDv09AzPhCXN2OcEo AiWoMV37OREitcVISibdKj fvZTI5LFug Fr0tCOLlEA54DOJpTDvfYK WrucPDFvraALCkJYC4NNgl Uh3kZCMoPI97FBVxMOqlHK MgcmUKZgoz KHXaLNO0RUioMa65BvMrWS R2QjJhVhZuMT93GFXllyBI TvfcGRYkAAH8IIqxGj0xGP PqWC41LTAf EHryOPSzlwFZHowhPDW7ZD okGUNjJXG0Ga25YcDbOQIm NjA0XNVxJvPYZLIbHmR8Ur gzMSAwLjY1 AFBaWUReUfS8JWTpRQhyXp Q3Ec1uXLTzWfK2GcqrXRKp SoF3PPUeEIApKnD7MJClWJ ekFuC9Mr2n ZMWcAsA8GgnyVZJhDappOY L8AJ6yRfI9CBTlMQowOiV6 Nl0gCEHsNrT9GvjwEIFwBr D0ZBFlOGPs UlY9LBDzCQshGgO1JB74Ye HeUjE8GhanSKRyPmG7KMAo YMRfIwF2DQKyERsyWwI1MM 56AfDdHdF6 XjckFZHeCxtyEEG0QU0pJv S3ICMkVIxzSwC0VY91RoJt JxM4WhhcYFOfEaB6HHVdCE CyGwX9ZJGj ZKwdItMdNPM6Xv95KNVsJL NtYfB4OwAdNN84LBXzrxPL PjgjGFL9YIfhHZS5VNXbXv 4yODIgLTAu RjU1RFJaWeYLQTStYGtnKx U1ONKuWtS1ZZIuKOP1CkWj JTZyYxOGYSSoNbHuBbE7Rh MuNDkxIDAu RuZ8LI5cNCAoOnHsskMEWl vxCfaiFKVpm0OpLaZcAdZ1 AVI4FtEfNYF3NIDcHX82Pv IgLTEwLjQ4 NSByZQpmCjAgIHNjbgoxMC 27STFbBPMtHwAiXkL4LJIu PSmiVX3qBzY7FJDwMOnpOt KlVBKqZQ8g OHGmZYOaNlY2VpPoMO45PF UgcmUKZgoxMCAzNjMuNzkg NXBvNqG1GuNjRB08GKHmfi UKZgoxMCA0 UKhaZOiqGNUlGsB9LJ45ER 9eAApigtYRAsn1LYWvFoL2 ZFLiVW7tUQAyQV02TCJkID A6LtB9BfVv PJpsGuSkBAD9LOAqS71GHJ XnKgF0COLqEp94WmZzMoGd Tbz9FgBtVQCvLIa2VCQvMl LJEIYxd3Mc DrKkCfH4VKE7KLlgGpe7MG J8PS17TVRsFQKxAmL6QLQf NmEMHD39HBhpKUVtwgzaYn EuNjQxIDQx Ig89TiZuCkMdIqz6AcFgER LoLGb8PVAyVtZMZXFtq1Sx NcT4QF77QHNjYNE5QxJ1Be AyNTAuOTg2 JD1bZeP1IWZtDSyhBnKxSB U9Js6vFuMiSIUpHsB1QyAp HS06KAOozdVAZrqjKMXpPO DyGlB2COGn Ca5oMDGsYEMaGyY1NAHcSs YKMTAgMzYzLjEzNSAwLjY1 NSAtNjkuNDYzIHJlCmYKNT EyLjYyNyAz ZlFbWWP6JKXsAiN3QC67SE 40NjMgcmUKZgowLjkxOCAg x4CcTwVhWjE6FJRlJcXjBT f1DRPgWH20 MlCcSQTkWjW8PDYwHThpOg DpNFQcyropVH08BZZsTiNx PiS7PCZ8JDVtOSnzRJ5hUe X5MVAgHAuy RwLgLC54WKXoEySiMbY8CJ XkFNQxHZv1EW1pMtR7BLGl ZYpsKlFmYA72XLGdPlTbRk h2EMIqSDDk PZe2SO8tKlK6YMLyGOxdQa HhPO42RIFxKqSnOqI1AHCz FoS8QZWcOWxjSRrvLKCpFu YKNTEwLjY2 QFUsQAHaBoh8UXBnYsN2YY 95XJ97UCNmskGVJdodUrrv STXvf4QwJeOmYB0kZFefWx UwLjAyOCAx AXCnElCuBE0xLU97TAIjpt PVKehdMDKbS54VDIJfYnG2 MLBtNVYuLVk9WFLbKP0eCt MgLTAuNjU1 CSAhFxHBGMNwKvqdFcK1KB H2XNDcIqfdXV3zYeC3LPWu AOzgQcNbWYJ9GM0mJrSqNB SqGpJ7BgTs MW78DBGepbGUOnbePHMaXU GvAbrmJZLrVyR0DF3rXmBw GHn6YHRhQgVWSVHuEuMaWr AyOTMuNjcx WCLpJxY1UC9eUhTuMDg9TX JmUtKLIL15QVllFARuufpl LT50HGPsLbvrKgGxMlH3QL NcHBjpMK2i LG15YHNyevYABgijWIUuO7 0FEPMgBtQ8LRI0Yr2bSMWq QBWzYyk7QhWtNT52OUMtxf UKZgoxMCAx JRCzXMUzFFTqLw5gTDRmYK EhYvO3PCJjRtEYIEJpFXZq ZHA3BBMoHb9hDUDgMTSzGv C3ICKbOuIH KFGzFROpYaigTnVnYtU7NW AtNjUuNTMyIHJlCmYKNTEy LjYyNyAxNTAuODEyIDAuNj Q2GS19LQ80 MzIgcmUKZgowLjkxOCAgc2 FkOmOvAlI4OWFqCODpOBS6 MVVhPD26CoZqBIRiMaU4UH ByZQpmCjAg WEMafkhrHN82LXEgFVNvPq PvYtG7CNJzDAapFK4yVdS1 HKUhMKhmEbVoGOC6Toi7OW I8QBUoXlqo MS4wMiP3QUTbACjpSoSgJT DzFGAnQhL2LDSiYSy8XLDn EoITFEQzHcMtJtJ8AcZmVj W6DCW5Efk3 FQEjBRmoKtDzKEB8FGLsH5 7VIGUuGoV4JZNdNTWfAG88 ZvYxOF2hHYPohbHHVuhmMA YqV87ZPGwu WiO6TKGoNb9vWtMdGOSyJk K8XIHwPX78FDLilmUFIxsp Ed6yGRptJFYmBcpyNqCdDr JzMdy9GD4b GzM9MPDfJLriQrB1LhHhKH J1RNAuOPFeGYYjLjL4GC87 MQ89SVNefnXLVurgAIfeFK J2XJKfIb6p CdZvHH25FUVtDVA5FzufAN MmMHdgKiKwKCG0TUGaX36Y BNqyIDT8OHMxNX10BGUpZJ VrHvY7MtTq BS77NeWwAQszKbFqLFNhkw mlIiBsUHQ3WMVcGy4dWhMy LPIkKuA6XXGoXI00UJXlxm UKZgoyMjQu MQF4HPU2IW83SelvBIYnSz V6YQWtYY75UHYufuWNXcvf MqNxZDL5MSAuEp4gAhQcPD 29LQTnUKQ0 LvydYNZbIYucWjL8ZC35Hm VhXFOqRpV2TVHuYuQ7AZYp BMftXQE0OYPiXbZZOG31OQ ggIHNjbgoy XqTsTUy4PUQtJM92QFUsCa XmJpGvKR28PfrjJJBxGsZH FjNvCjgkMJU8QXAtYHD0LO M6WmqzRbJl JH58QdUeVCnyZkM6Kl57RL VbVOBhWlIqVfE1ER1nMIQb LTkuODMgcmUKZgpCVAovUC T6SY7ZK8zA ZCSsCi0TIVKkWyByZSPdxs ovVFQwIDEgVGYKLTAuMDE3 JRV8HIvlTXMwMOXuWZIqTe 54TvG2QXMq CxY4WXvlEVWnAtIwEVrrMB 4PHevCJSZfpAijOOFtLG1j JV22OPhz (more content not included)... Normal [facility] Prison Documentson 08-28-2022 Prison Documents [id number]#[id number]:[id number] Normal [facility] Prison Documentson 08-19-2022 Prison Documents Prison Nurse Visit 14 day Health Appraisal Date of Appraisal: _ Booked Date: _08/14/2022 Court or Release Date: _ Did inmate come from another facility: _NO PCP: _ Dr. Cameron Specialist: _Perla Roberts in [place] [facility]: _[facility] Have you ever had suicide attempts: _NO If yes, when was your last attempt and how: _NA Are you currently under the care of a practitioner for any reason: _PCP General Health, Dr. Armando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 gallbladder neck, and the appearance is compatible with multiple small gallstones. There is no abnormal distention of the gallbladder and no gallbladder wall thickening nor pericholecystic inflammation is evident. There is no biliary ductal dilatation. The spleen, pancreas, and adrenal glands are unremarkable on this study. There is a small left renal cortical cyst, with both kidneys otherwise unremarkable. The renal collecting systems are not dilated. No retroperitoneal hematoma nor lymphadenopathy is evident. There are extensive arterial calcifications. There is saccular aneurysmal dilatation of the distal abdominal aorta at the L3-L4 level, with transverse diameter of 3 cm, AP diameter of 2.7 cm, and length of approximately Report 2.8 cm. The aneurysm ends proximal to the aortic bifurcation. Evaluation of bowel is limited. The bowel loops are not dilated, and there is no evidence of bowel obstruction. The appendix is normal. Fecal material in the colon limits evaluation. There is colonic diverticulosis, without evidence of diverticulitis. No abdominal inflammatory complex nor free air nor free fluid is noted. No pelvic hematoma, no pelvic mass, nor pelvic lymphadenopathy is evident. The urinary bladder is unremarkable in appearance. As previously noted, there are sternotomy wires. No acute sternal fracture is evident. There are old healed fractures of the right fifth, sixth, seventh, eighth, ninth, and eleventh ribs. There is minimal deformity due to old nondisplaced fracture of the left tenth rib laterally. No acute displaced rib fracture is noted on either the right or the left. With the patient motion, very subtle nondisplaced acute fracture might not be evident on this exam. No pelvic bone fracture is noted. No fracture nor dislocation is noted at either hip. CT THORACIC SPINE: Of incidental note, the T12 vertebra is transitional, with very rudimentary ribs. There is spondylosis, with hypertrophic spurring of thoracic vertebral bodies. Thoracic vertebral bodies are maintained in height. There are some hypertrophic degenerative changes of posterior elements. No acute/recent thoracic spine fracture is noted. CT LUMBOSACRAL SPINE: There is spondylosis, with hypertrophic spurring of lumbar vertebral bodies. There are hypertrophic arthritic changes of lumbar facet joints. The lumbar vertebral bodies are maintained in height. No acute/recent lumbosacral spine fracture nor subluxation is noted. All CT scans at this facility use dose modulation, iterative reconstruction, and/or weight based dosing when appropriate to reduce radiation dose to as low as reasonably achievable. FINAL REPORT Dictated: 08/14/2022 8:53 am Santy Gonzalez M.D. Signed (Electronic Signature): 08/14/2022 8:53 am Signed by: Santy Gonzalez M.D. Transcribed by: THELMA Technologist: TAMMIE [facility]ante [facility] CT Head or Brain w/o Contras ton 08-14-2022 CT Head or Brain w/o Contrast Exam Date/Time: 08/14/2022 02:07 EST Reason for Exam: Head trauma, mod-severe;Other (please specify) Report IMPRESSION: CHRONIC FINDINGS. NO EVIDENCE OF ACUTE INTRACRANIAL HEMORRHAGE. CLINICAL HISTORY: Head trauma, mod-severe. COMPARISON: 04/18/2022. COMMENT: Unenhanced images were obtained. There are some motion artifact with degradation of image quality. The lateral ventricles, sylvian fissures, and cortical sulci bilaterally are dilated. There is no mass effect nor midline shift. There is ill-defined minimally decreased attenuation of periventricular white matter bilaterally. There is no evidence of recent intracranial hemorrhage nor extra-axial hematoma. No mass lesion is evident. No skull fracture is noted. There are rounded culture cysts in the maxillary sinuses inferiorly. There are calculations of distal internal carotid arteries. All CT scans at this facility use dose modulation, iterative reconstruction, and/or weight based dosing when appropriate to reduce radiation dose to as low as reasonably achievable. FINAL REPORT Dictated: 08/14/2022 8:09 am Santy Gonzalez M.D. Signed (Electronic Signature): 08/14/2022 8:09 am Signed by: Santy Gonzalez M.D. Transcribed by: THELMA Technologist: TAMMIE Technical Comments Contrast: None Normal [facility] CT Spine Cervical w/o Contra ston 08-14-2022 CT Spine Cervical w/o Contrast Exam Date/Time: 08/14/2022 02:07 EST Reason for Exam: Neck trauma;Other (please specify) Report IMPRESSION: NO EVIDENCE OF ACUTE/RECENT CERVICAL SPINE FRACTURE. MULTILEVEL DEGENERATIVE CHANGES. CLINICAL HISTORY: Neck trauma. COMPARISON: 04/18/2022. COMMENT: Unenhanced images were obtained. There are hypertrophic degenerative arthritic changes at the atlantoodontoid articulation. There is interspace narrowing and partial fusion at C5-C6, and there is posterior hypertrophic spurring of the vertebral bodies at the C5-C6 level. There is interspace narrowing at C6-C7, with posterior hypertrophic spurring of the vertebral bodies. There also are marginal spurs involving other cervical vertebral bodies and upper thoracic vertebral bodies. There are hypertrophic arthritic changes involving many of the cervical facet joints, more prominently at C2-C3 bilaterally, C3-C4 on the right, C4-C5 on the right, and C7-T1 right greater than left. There is hypertrophic spurring of some of the cervical uncinate processes, more prominent at C5-C6 on the left and C6-C7 bilaterally. There is multilevel cervical neural foraminal encroachment. There also are hypertrophic facet arthritic changes involving some of the visualized upper thoracic facet joints. The cervical vertebral bodies are maintained in height. No acute/recent cervical fracture nor subluxation is noted. Assessment of intervertebral discs is limited, but with posterior hypertrophic spurring, there is focal spinal canal stenosis with narrowing of the AP spinal canal diameters at the C5-C6 and C6-C7 levels. There is no prevertebral retropharyngeal soft tissue swelling. There are calcifications at the carotid bifurcations. All CT scans at this facility use dose modulation, iterative reconstruction, and/or weight based dosing when appropriate to reduce radiation dose to as low as reasonably achievable. FINAL REPORT Dictated: 08/14/2022 8:16 am Santy Gonzalez M.D. Signed (Electronic Signature): 08/14/2022 8:16 am Signed by: Santy Gonazlez M.D. Transcribed by: THELMA Technologist: TAMMIE [facility] Consent for Treatmenton Consent for Treatment [id number] 0CD:127 [facility] Discharge Instructionson Discharge Instructions [id number] 0CD:127 [facility] ED Clinical Summaryon 2022 ED Clinical Summary [place] [id number] ED Clinical Summary Person Information Name: MLEBA LEVY/[facility] Age: 66 Years : 1955 Sex: Male Language: Syrian PCP: Leo GARZA Marital Status: Phone: Visit Id: Visit Reason: Fall; Alcohol intoxication; INTOXICATION Speciality: Acuity: 3 Enc Type: Emergency Med Service: Emergency Arrival: 08/14/2022 01:10:35 Discharge: 08/14/2022 03:10:22 LOS: 000 02:00 Checkin: 08/14/2022 01:10:35 Checkout: 08/14/2022 03:10:22 Dispo Type: Home (Routine DC) EVENTS: Event Name Event Status Request Date/Time Start Date/Time Complete Date/Time Arrive Complete 08/14/2022 01:10:35 08/14/2022 01:10:35 08/14/2022 01:10:35 Document Home Meds Request 08/14/2022 01:10:35 Triage Complete 08/14/2022 01:10:35 08/14/2022 01:17:04 08/14/2022 01:17:04 Dr Exam Complete 08/14/2022 01:12:03 08/14/2022 01:12:03 08/14/2022 01:12:03 Registration Complete 08/14/2022 01:12:03 08/14/2022 01:12:09 08/14/2022 02:30:08 Bed Assign Complete 08/14/2022 01:12:09 08/14/2022 01:12:09 08/14/2022 01:12:09 RN Exam Complete 08/14/2022 01:12:09 08/14/2022 01:49:59 08/14/2022 01:49:59 EKG Request 08/14/2022 01:14:18 NPO Request 08/14/2022 01:14:18 Pending Labs Complete 08/14/2022 01:14:18 08/14/2022 02:24:38 Lab Complete 08/14/2022 01:14:18 08/14/2022 02:24:38 Urine Collect Complete 08/14/2022 01:14:18 08/14/2022 02:24:38 RT Request 08/14/2022 01:14:18 Patient Care Request 08/14/2022 01:14:18 Blood Collect Request 08/14/2022 01:14:18 CT Complete 08/14/2022 01:14:18 08/14/2022 02:04:34 08/14/2022 02:07:24 Trauma II Request 08/14/2022 01:15:31 Trauma II Request 08/14/2022 01:22:08 Pending Labs Complete 08/14/2022 01:39:19 08/14/2022 01:39:19 08/14/2022 02:01:33 Lab Complete 08/14/2022 01:39:19 08/14/2022 01:39:19 08/14/2022 02:01:33 Pending Labs Complete 08/14/2022 01:39:55 08/14/2022 01:39:55 08/14/2022 02:09:48 Lab Complete 08/14/2022 01:39:55 08/14/2022 01:39:55 08/14/2022 02:09:48 Pending Labs Complete 08/14/2022 01:44:42 08/14/2022 01:44:42 08/14/2022 01:44:52 Lab Complete 08/14/2022 01:44:42 08/14/2022 01:44:42 08/14/2022 01:44:52 Pending Labs Complete 08/14/2022 02:03:30 08/14/2022 02:03:30 08/14/2022 02:03:30 CT Complete 08/14/2022 02:04:49 08/14/2022 02:04:50 08/14/2022 02:07:24 CT Complete 08/14/2022 02:05:11 08/14/2022 02:05:12 08/14/2022 02:07:24 Reg Complete Request 08/14/2022 02:30:08 Discharge Complete 08/14/2022 02:36:02 08/14/2022 03:12:42 08/14/2022 03:12:42 Transfer Complete 08/14/2022 03:12:42 08/14/2022 03:12:42 08/14/2022 03:12:42 ADDRESS: [address] [facility] [id number] PHYS DOC NOTES: MEDICAL INFORMATION: Prescriptions Given: Medications to Continue with No Changes Other Medications albuterol (albuterol HFA 90 mcg/inh MDI) 2 Puffs Inhalation every 4 hours as needed Shortness of breath or wheezing. Refills: 5. albuterol-ipratropium (DuoNeb 2.5 mg-0.5 mg/3 mL Soln-Inh) 3 Milliliter Inhalation 4 times a day. Refills: 0. aspirin (aspirin 81 mg Oral EC Tab) 1 Tablets By Mouth every day. Refills: 0. budesonide-formoterol (Symbicort 160/4.5 inhalation aerosol with adapter) 2 Puffs Inhalation 2 times a day. Refills: 11. bumetanide (bumetanide 2 mg Tab) 1 Tablets By Mouth every day. carvedilol (carvedilol 25 mg Tab) 1 Tablets By Mouth 2 times a day. Refills: 5. cholecalciferol (cholecalciferol 1000 intl units (25 mcg) oral tablet) 1 Tablets By Mouth every day. Refills: 0. ferrous sulfate (ferrous sulfate 325 mg oral enteric coated tablet) 1 Tablets By Mouth every day. fluticasone nasal (fluticasone 0.05 mg/inh Nasal Muse) 1 Sprays Nasal Inhalation 2 times a day. Refills: 11. folic acid (folic acid 1 mg Tab) 1 Tablets By Mouth every day. Refills: 0. hydroxychloroquine (hydroxychloroquine 200 mg Tab) 1 Tablets By Mouth every 12 hours. isosorbide mononitrate (isosorbide mononitrate 30 mg ER Tab) 1 Tablets By Mouth every day. Refills: 0. leflunomide (leflunomide 10 mg oral tablet) 1 Tablets By Mouth every day. lorazepam (LORazepam 1 mg Tab) 1 Tablets By Mouth 4 times a day as needed Anxiety. Refills: 0. multivitamin (Multi Vitamins oral tablet) 1 Tablets By Mouth every day. Refills: 0. nicotine (nicotine 21 mg/24 hr Transderm ER Film) 1 Patches Transdermal every day. nitroglycerin (nitroglycerin 0.4 mg sublingual Tab) 1 Tablets Sublingual every 5 minutes as needed for chest pain. If chest pain not relieved in 5 minutes after first dose, seek immediate medical attention. Refills: 0. oxybutynin (oxybutynin 5 mg Tab) 1 Tablets By Mouth 2 times a day. Refills: 5. oxycodone (oxyCODONE 5 mg Tab) 1 Tablets By Mouth every 6 hours as needed Breakthrough Pain. Refills: 0. potassium chloride (potassium chloride 20 mEq ER Tab) 1 Tablets By Mouth every day. Refills: 0. pravastatin (pravastatin 40 mg Tab) 1 Tablets By Mouth every day. Refills: 0. tamsulosin (tamsulosin 0.4 mg Cap) 1 Capsules By Mouth at bedtime. Refills: 0. thiamine (thiamine 100 mg Tab) 1 Tablets By (more content not included)... Normal [facility] ED Note-Physicianon 08-14-19 ED Note-Physician Basic Information Time Seen: Kenia Cem 08/14/2022 01:12 History of Present Illness HPI: Patient is a 66-year-old male past medical history of alcohol abuse, CAD, emphysema, diastolic dysfunction, hypertension, hyponatremia, hyperlipidemia, rheumatoid arthritis who presents the ED via EMS for intoxication and fall. Per EMS they were called by the patient's who found him laying on the floor. Patient does not recall falling. He takes baby aspirin no other blood thinners. He denies any headache, vision changes, numbness, weakness. He denies any acute pain at this time. He does admit to drinking multiple alcoholic beverages tonight and reports that he is a daily drinker. He denies any fever, chills, or recent illness. ROS: Pertinent review of systems conducted and is negative except as noted above. Physical exam: General: nontoxic appearing and in no distress HEENT: Mucous membranes moist, No malhotra sign, hemotympanum, or raccoon eyes. Neuro: awake and alert. GCS is 15. CN II - XII grossly intact, motor and sensation to the four extremities are grossly intact. Intoxicated appearing. Neck: supple, trachea midline. No midline tenderness of the cervical spine. Card: Heart regular rate and rhythm no murmur Resp: Lungs clear to auscultation no wheeze or rhonchi. No flail chest or crepitus. Abd: Soft and nondistended. No tenderness with no rebound or guarding. Spine: No midline tenderness of the thoracic or lumbar spine. No palpable bony deformity. Pelvis: Stable to palpation. Ext: No gross deformity of the extremities. No focal tenderness to palpation. Medical Decision Making MEDICAL DECISION MAKING Number and Complexity of Problems Differential Diagnosis: Skull fracture, intracranial hemorrhage, spinal fracture, intoxication, electrolyte abnormality MDM Data External documents reviewed: N/A My EKG interpretation: Noted in chart if applicable My CT interpretation: N/A My X-ray interpretation: Noted in chart if applicable My Ultrasound interpretation: N/A Decision rules/scores evaluated: N/A Discussed with: N/A Treatment and Disposition ED Course: Arrival to ED patient is nontoxic-appearing and in no distress. He is clinically intoxicated and admits to drinking tonight. As she was found on the ground does not member falling we will obtain a CT of the head neck chest abdomen pelvis. We will also obtain blood work. Blood work shows a hyponatremia of 126 which reveals rash that is chronic for him. There is likely secondary to his alcohol abuse. His ethanol level is elevated at 375. CTs of the head and neck are interpreted by radiology as no acute traumatic findings. CT imaging of the chest abdomen pelvis also interpreted as no acute process. Patient was discharged into police custody. Shared decision making: As above Code status: N/A Assessment/Plan Acute alcohol intoxication (F10.929: Alcohol use, unspecified with intoxication, unspecified) Chronic hyponatremia (E87.1: Hypo-osmolality and hyponatremia) Fall (W19.XXXA: Unspecified fall, initial encounter) Orders: ABO/Rh ABO/Rh History Check Antibody Screen Automated Diff Basic Metabolic Panel Blood Bank ID# CBC w/ Auto Diff CT Abdomen/Pelvis w/o Contrast CT Chest w/o Contrast CT Head or Brain w/o Contrast CT Spine Cervical w/o Contrast Drug Screen Urine ECG 12 Lead Adult ED Cardiac Monitoring eGFR Ethanol Level Extra SST Tube Hepatic Function Panel Lactic Acid Lipase Level NPO Diet Oxygen Therapy PT & PTT Pulse Oximetry Continuous Saline Lock Insert Troponin Disposition Plan Discharge Prescription List Prescriptions No active prescription medications Follow-up With When Contact Information Leo CAMERON In 3 days [address] [place] [phone] Business (1) Additional Instructions: Patient Education Hyponatremia Alcohol Intoxication 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 Anxiety Aortic ectasia Arthritis, rheumatoid At risk for fall due to comorbid condition Benign hypertensive heart and kidney disease Benign prostate hyperplasia BMI 26.0-26.9,adult CAD (coronary artery disease) Centrilobular emphysema Chronic pain Cigarette nicotine dependence Diastolic dysfunction Diastolic dysfunction without heart failure Frequent falls Hearing loss, bilateral Hepatic steatosis Hypertension Hypokalemia Hyponatremia Hypoxemic respiratory failure, chronic Insomnia disorder Lumbar back pain Medication management Mild pulmonary hypertension Mixed hyperlipidemia Neuropathy Noncompliance with medication regimen OAB (overactive bladder) Overweight Requires oxygen therapy Rheumatoid arthritis Historical BMI 29.0-29.9,adult BPH without urinary obstruction Chronic obstructive pulmonary disease Ri (more content not included)... Normal [facility] Comment on above: Result Comment: Elec tronically Signed By: Cem Aquino DO\.br\Date and Time Signed: 08/14/22 02:36 EST ED Patient Education Noteon 08-14-2022 ED Patient Education Note Hematology Hyponatremia Hyponatremia is when the amount of salt (sodium) in your blood is too low. When sodium levels are low, your cells absorb extra water, which causes them to swell. The swelling happens throughout the body, but it mostly affects the brain. What are the causes? This condition may be caused by: ? Certain medical conditions, such as: ? Heart, kidney, or liver problems. ? Thyroid problems. ? Adrenal gland problems. ? Metabolic conditions, such as Panchito disease or syndrome of inappropriate antidiuretic hormone (SIADH). ? Severe vomiting or diarrhea. ? Certain medicines or illegal drugs. ? Dehydration. ? Drinking too much water. ? Eating a diet that is low in sodium. ? Large pierre on your body. ? Excessive sweating. What increases the risk? You are more likely to develop this condition if you: ? Have long-term (chronic) kidney disease. ? Have heart failure. ? Have a medical condition that causes frequent or excessive diarrhea. ? Participate in intense physical activities, such as marathon running. ? Take certain medicines that affect the sodium and fluid balance in the blood. Some of these medicine types include: ? Diuretics. ? NSAIDs. ? Some opioid pain medicines. ? Some antidepressants. ? Some seizure prevention medicines. What are the signs or symptoms? Symptoms of this condition include: ? Headache. ? Nausea and vomiting. ? Being very tired (lethargic). ? Muscle weakness and cramping. ? Loss of appetite. ? Feeling weak or light-headed. Severe symptoms of this condition include: ? Confusion. ? Agitation. ? Having a rapid heart rate. ? Passing out (fainting). ? Seizures. ? Coma. How is this diagnosed? This condition is diagnosed based on: ? A physical exam. ? Your medical history. ? Tests, including: ? Blood tests. ? Urine tests. How is this treated? Treatment for this condition depends on the cause. Treatment may include: ? Getting fluids through an IV that is inserted into one of your veins. ? Medicines to correct the sodium imbalance. If medicines are causing the condition, the medicines will need to be adjusted. ? Limiting your water or fluid intake to get the correct sodium balance. ? Monitoring in the hospital setting to closely watch your symptoms for improvement. Follow these instructions at home: ? Take sitm-itn-mvzhcxq and prescription medicines only as told by your health care provider. Many medicines can make this condition worse. Talk with your health care provider about any medicines that you are currently taking. ? Carefully follow a recommended diet as told by your health care provider. ? Carefully follow instructions from your health care provider about fluid restrictions. ? Do not drink alcohol. ? Keep all follow-up visits as told by your health care provider. This is important. Contact a health care provider if: ? You develop worsening nausea, fatigue, headache, confusion, or weakness. ? Your symptoms go away and then return. ? You have problems following the recommended diet. Get help right away if: ? You have a seizure. ? You pass out. ? You have ongoing diarrhea or vomiting. Summary ? Hyponatremia is when the amount of salt (sodium) in your blood is too low. ? When sodium levels are low, your cells absorb extra water, which causes them to swell. ? The swelling happens throughout the body, but it mostly affects the brain. ? Treatment for this condition depends on the cause. It may include IV fluids, medicines, and limiting your fluid intake. This information is not intended to replace advice given to you by your health care provider. Make sure you discuss any questions you have with your health care provider. Document Released: 06/20/2003 Document Revised: 05/14/2019 Document Reviewed: 05/14/2019 [employer] Patient Education ? 2019 [employer]. Mental and Behavioral Health Alcohol Intoxication Alcohol intoxication occurs when a person no longer thinks clearly or functions well (becomes impaired) after drinking alcohol. Intoxication can occur with just one drink. The legal definition of alcohol intoxication depends on the amount of alcohol in the blood (blood alcohol concentration, MIKE). MIKE of 80?100 mg/dL or higher is commonly considered legally intoxicated. The level of impairment depends on: ? The amount of alcohol the person had. ? The person's age, gender, and weight. ? How often the person drinks. ? Whether the person has other medical conditions, such as diabetes, seizures, or a heart condition. Alcohol intoxication can range from mild to severe. The condition can be dangerous, especially if the person: ? Also took certain drugs or prescription medicines. ? Drinks a large amount of alcohol in a short period of time (binge drinks). ? For women, binge drinking is having four or more drinks at one time. ? For men, b (more content not included)... Normal [facility] ED Patient Summaryon 023 ED Patient Summary [address] [address] Patient Discharge Instructions Person Information Name: MELBA LEVY Age: 66 Years Arrival Date: 08/14/2022 01:10:35 Discharge Diagnosis: Acute alcohol intoxication; Chronic hyponatremia; Fall Primary Care Physician: Leo GARZA Provider Information Primary Provider: Cem Aquino DO Advanced Detention Officer:None The exam and treatment you received in the Emergency Department were for an urgent problem and are not intended as complete care. It is important that you follow up with a doctor, nurse practitioner, or physician?s administrative sales assistant for ongoing care. If your symptoms become worse or you do not improve as expected and you are unable to reach your usual health care provider, you should return to the Emergency Department. We are available 24 hours a day. MELBA LEVY has been given the following list of patient education materials, prescriptions and follow-up instructions: Follow-up Instructions: With: Address: When: Leo CAMERON [address] [place] [id number] Business (1) In 3 days In the event that this physician does not participate in your insurance network, please consult with your insurance company to find a nearby participating provider. Patient Education Materials: Hyponatremia; Alcohol Intoxication A MESSAGE TO ALL PATIENTS REGARDING OPIOIDS PRESCRIPTION OPIOIDS: WHAT YOU NEED TO KNOW Prescription opioids can be used to help relieve jvqdzlsw-ne-bfdybo pain and are often prescribed following a surgery or injury, or for certain health conditions. These medications can be an important part of the treatment but also come with serious risks. It is important to work with your healthcare provider to make sure you are getting the safest, most effective care. WHAT ARE THE RISKS AND SIDE EFFECTS OF OPIOID USE? Prescription opioids carry serious risks of addiction and overdose, especially with prolonged use. An opioid overdose, often marked by slowed breathing, can cause sudden . The use of prescription opioids can have a number of side effects as well, even when taken as directed: ? Tolerance?meaning you might need to take more of the medication for the same pain relief ? Physical dependence?meaning you have symptoms of withdrawal when a medication is stopped ? Increased sensitivity to pain ? Constipation ? Nausea, vomiting, and dry mouth ? Sleepiness and dizziness ? Confusion ? Depression ? Low levels of testosterone that can result in lower sex drive, energy, and strength ? Itching and sweating RISKS ARE GREATER WITH: ? History of drug misuse, substance use disorder, or overdose ? Mental health conditions (such as depression or anxiety) ? Sleep apnea ? Older age (65 years and older) ? Avoid alcohol while taking prescription opioids. Also, unless specifically advised by your health care provider, medications to avoid include: ? Benzodiazepines (such as Xanax or Valium) ? Muscle relaxants (such as Soma or Flexeril) ? Hypnotics (such as Ambien or Lunesta) ? Other prescription opioids KNOW YOUR OPTIONS Talk to your health care provider about ways to manage your pain that don?t involve prescription opioids. Some of these options may actually work better and have fewer risks and side effects. Options may include: ? Pain relievers such as acetaminophen, ibuprofen, and naproxen ? Some medication that are also used for depression or seizures ? Physical therapy and exercise ? Cognitive behavioral therapy, a psychological, goal-directed approach, in which patients learn how to modify physical, behavioral, and emotional triggers of pain and stress. IF YOU ARE PRESCRIBED OPIOIDS FOR PAIN: ? Never take opioids in greater amounts or more often than prescribed. ? Follow up with your primary health care provider. o Work together to create a plan on how to manage your pain. o Talk about ways to help manage your pain that don?t involve prescription opioids. o Talk about any and all concerns and side effects. ? Help prevent misuse and abuse o Never sell or share prescription opioids. o Never use another person?s prescription opioids. ? Store prescription opioids in a secure place and out of reach of others (this may include visitors, children, friends, and family). ? Safely dispose of unused prescription opioids: Find your community drug take-back program or your pharmacy mail-back program, or flush them down the toilet, following guidance from the Food and Drug Administration (www.fda.gov/Drugs/Res ourcesForYou). ? Visit www.cdc.gov/drugoverdo se to learn about the risks of opioids abuse and overdose. ? If you believe you may be struggling with addiction, tell your health respiratory care specialist and ask for guidance or call SAMHSA?S National Helpline at 6-724-913-HELP. v Jennifer (more content not included)... Normal [facility] ED Traumaon 08-14-2022 ED Trauma [id number] [facility] EMS Documentationon 08-14-19 EMS Documentation Please click on link to see report pdfCD:[id number] jQNCiX5+prnDQolQUJDcGR eIEJrPmJ2LVypQoDpVN1jz u6KXHfIE9GjLCPvXsS5Tx9 I VKvvGAq4EIFtAV1LJ1gmCE swBlS1Jj2VkK3oXMYygoTz XCFSO07dGualUeVcVTuiAR NzZQC5HaMJ Ho7kSPWeRYAyZQOhLRFoVR AgICAgICAgICAgICAgICAg ICAgICAgICAgICAgICAgIC AgICAgICAg ICAgICAgICAgICAgICAgIC YjJFAoBYuktwUhThsDIz5H kEGbCf6EVxUkYzZZPaJfGQ AwMDAwMzIg WOKzNWYmlq2FCMZwHMKwUX J6HWVcGOCaZAEnNMinTVQq OLHvRPb5GTUmEQRcQW4LJm AwMDAwMDE3 LOAfITDpYWXtsi3WJHQiYG AwMTkzNCAwMDAwMCBuDQow VKJnSUIaIPq8FTBcDOHoDM 4NCjAwMDAw LUNyZeZlMHQyKRCciy8BBZ AwMDAwMjMxNSAwMDAwMCBu ABgkRGOiWQNeFiw8VBMqKP QoFW9WNoVc HKLlVVT7WDjiPCWtXUZlwz 0KMDAwMDAwMjgwNCAwMDAw MCBuDQowMDAwMDAzMDYzID YbWWOeXJ3N SgTxJIBeFWJ4DTEtRARmWM Xnva2VINKnMDRvFpBbNVIi MDAwMCBuDQowMDAwMDAzOD Y9TOFrRINt TA7ERlYhMHSiJRRoDZiwBH UgCMOsbu5ICRQwYOTyESL0 MSAwMDAwMCBuDQowMDAwMD B9HgYkZJVt MGElOF8GMiQxDJOpTDW6Lt ZpUWYaHOHjcd4XDKSoKHEt NTEzMyAwMDAwMCBuDQowMD HaYMY7OGDr LKNcGSJaDQ4EWzIyJBBvTL S3EWCfNBEqRDMopk2YWZXp MDAwOTUwNSAwMDAwMCBuDQ owMDAwMDQ5 KWH6GNOcYUFkHW2JXaOkNH PqBLD1XjxhSRTkTACkdb3R zVErjIfklj3INDrUP9eIVF e4ACHUNFLg EMA8BYLgDMV2RXK2PLTyLI WCRfh4DJAiAHD+CjxDNjNB AGE0RrBfUfw8WEa4UBF5Hq T1GXHMQeR5 YBM9VH6eMy6TjkY9QYG3QI f0RYaaUn6bqSGxLzEfXBCP I7AxcdQrOUgGY1XoyNOmGX QyD6SITMB2 Mn02HktedHjRMYX8VJWPQM hdGP6KKuhNUkFwXIbeNy55 P3TRp2B0RkFtH7RCgWbNvv FOKXkyA0vG pAP8u4krtXjXzUPLpQdtIY kEincJdfNPYRsdCGZCyM38 eaeTK8MqMFl5E2CGSa6TXQ umDbUuiM8W wSmyVTF1bO6qOTQCNHeUPz xvXK9IFAPJSSn7YRv+PiAg ICAgICAgICAgICAgICAgIC AgICAgICAg ICAgICAgICAgICAgICAgIC AgICAgICAgICAgICAgICAg ICAgICAgICAgICAgICAgIC AgICAgICAg ICAgICAgICAgICAgICAgIC AgICAgICAgICAgICAgICAg ICAgICAgICAgICAgICAgIC AgICAgICAg ICAgICAgICAgICAgICAgIC AgICAgICAgICAgICAgICAg ICAgICAgICAgICAgICAgIC AgICAgICAg ICAgICAgICAgICAgICAgIC AgICAgICAgICAgICAgICAg ICAgICAgICAgICAgICAgIC AgICAgICAg ICAgICAgICAgICAgICAgIC AgICAgICAgICAgICAgICAg ICAgICAgICAgICAgICAgIC AgICAgICAg ICAgICAgICAgICAgICAgIC AgICAgICAgICAgICAgICAg ICAgICAgICAgICAgICAgIC AgICAgICAg ICAgICAgICAgICAgICAgIC AgICAgICAgICAgICAgICAg ICAgICAgICAgICAgICAgIC AgICAgICAg FA9Nm2AedjN1ltIsAAclCT inEKPQJl6ITUcnIrNiOH3z lb0GWBpJW96ijQVxIVHsRI IxIDAgUgov U9AeqvOcvOjhxoCzPkRnNX RHSf0UlJDHRPnfF1E4nNht OECiEAwkIIZYQb8GVPveGF 9kZSAvVXNl Nf2uEYarQRHnIWBmRvDwUR DPTk2KbSFkCM7BMDKkiH3q Cj4+LUllchMpQupFLq3ZSk QgMCBvYmoN Hvo6Pi9BbXl5TKMfE0KeOX TeGLOqe3NiFf2EAX4wsGvg IIX3At8EZYt1Zx3+DQpzdH SrOU5YYsbg N8DgLDHeHKFsSEBxDWYWkB IxDUBoMRMEGLyByBT4Sbwg xT4YEjKRTlSTWvGHyLJxUv A1PPzLG9W4 HPbYDmRjy3N1FTtRJNONKf BoCArSeHnL5sOQzKkHzpR4 UZQ7lWxKSUtFYyJPMOQEeN JK7GiLK9zL lH6DIP4uv6EpXIOuMCexki CxIhtJXi5SMuHrGKAcItlH Rmh9Jq6Xh066CT51gbVnEZ IgMCBSXQov MCUqoTFVm4frYnMtPYG6LD XfTfpfKQgrPTRrCI04KAOq AMUjKasiYyPhl0BoV4DrWI x8Gu1RH8Sw BGA9YPv4Mt8AVQXlRsLjUd PuPMKKVf8CLk9XH7T1rPAn O2XpM7KAGb2IGuOvBA4gak 0KDQoyNiAw DR0jmf7XLCpUH2NPm2qwVd YsGOH7IIUnZaevZHqdZnki bRLgLR1JtKD9ANDyG50jCX ieZDGeS2Do HIv0Ul7ZDBWdyYOzWZVzYR kVP5fTXltkB9YeJMsMY0cy VjD8FADyIUUkEkp+Pgo+Pg tlL4OgrVmb BTOlMd5koDxjYOxcZASsQJ 9iamVjdAo+Gb5Wc3LcVJCw WZi6uLBM1HJh4WHpCGEyEW I9EASwfmCW KApk3CfFdQAbKtGqiBAkJ7 iyNQEr14pCTVXwRjvWk6qh NfXj7QeNKB+VA6OVzoMbNf Hpvj8PWQea zuTqiHKwBD6GCxKrHK9ecb 2GRXitPcLbBY5ses8DWNsY V3AKDI6Rh8KbUOkKR6PHHY QSA2cVSZVT N4dNOWYNE2eEQCGVA33VTG BLC9BXFOMulNHQJ6EqJJGY Zg5PHhAxAA4bnd3FAXgqBC AhNK5blq7S HBcUE7NYIT6Zz1SjXGpDX2 BhYNWCNb8SLiMhWM6vdi8T EHdbPXYyWO9pad9JYOhSC7 KHSF3Sq7Fm HAuFR6ZQWYGFQ3tCUULXA1 nTYISLV1tJYCGQK47BPCOB C3KHNOKymQQNG1HdORTWQl 9QGzElEW2r ko6HANukXQCbDN1pij4LJX kCE0Myn3RLw858JN5WTKdJ WGGhZ778gmeswm1oo5HVKY JvbGRNVAov HVMfH2PyJXCeiHCbptXcHE cqMCZcXIBzMz0CfjClJRmc ZyAvSWRlbnRpdHktSAovU3 VidHlwZSAv FWboQYAKY1NjCC9tB08qGJ QfFoOoDDSFX5J8oAKeP5Xy oeNGUl4GBqQjFB6qxm7XQI aaBYKhZY2n pq1IRRnTG6Zxw6FCa722KZ 4IAGkJAXHnP603tqouik9o x9LAMCWokVYQXFzeI8sPE1 uyeDYtWL3y rpR3HEncL9GbKYWybrxnKZ leHA21mBC6UKobOqNdmRQ7 fjsxLYFdh9MkVMbaW3ZkzF xlbWVudCAw Cj4+Ze9ETYAZv5zOZS3yaB LdZTZfxsLxqZaEF0FBUGRC C8CaphGGLABbvlfdmX8gAN MyIDAgUgov A2TdgKrmTQDlK6bIVx7wpV V9jPWlBf3AxOJgBR6Fh077 Sl7DDSkdWNidHXRbGK2kRU a5Gf8CYc0E BwKsKX8zvu8IHNooSjBgSV 9fxr2PLGuVB6GoA7HdnYJ2 WjOuTDP4OPGWU9DckZlroE elkEB4MSEt Pzd2PWiDF4Ged8VgvbDkHi FwIdX4Cps2Xr2DpEXiouGc VOxwMk1zvDGKn9wfXk8jXN VtRCy6HPGw XSxdUF05FCdqCoV1NONxTq RtHPMcUXUcIZ8wKOE4TB5R K0LjmfAAnJwfTyZ2AYTrZI YPN2WvcwQG BC0sXL0SCSzQTDWqK205bx zcyr5jn7LHFEEexCSBNMts KCMpiMyzGA7wuPDnYWifD3 RlbVYgNzYu EBgpMKzFH5A1eLFjG5Jbvy LMKDAemxgzcE9kVc6+DQpl epSpVqsYFq3WXgFoHQYcKb gSQgz8Wn3C hBj2AUGxM2PhCUGnNIYfn3 LySi9SKY4rfFopOtW7Ii1+ CXuxcNOiOY3AQcfdAMJWgd MbSHw1R4qV JeWFC7MESYcammBpF9Z6V4 x1CHuHlOfc7G4todUIksge eQ6GC2eWfhj62sTzaMcWzQ B7j8c1GE0Q l5Ub1ZfwRhSwkAj9iQ73iP 0s5sfXZ8Ddqh9VmsKx4DcX p+Chycsx8QUoFHhzUorpX0 26vgqK06tk vzCADVywquIa+wp93je0np QjtE1z3Rf1KF3Fw4NtGRzw KmAZoaKakuy0Gnstt3FMSN mKb4PxWWIp /0OevV33vaIj9YBokmmHoU vHCMGOCiQLxo7h3Q7izpWa mlQOsZb7uhSBzaVrVFQEKO ezkz6E40Fz t2JbtgQx7aMvOAkVcfdudX sxUAd4ipAuhosY7JM2W4LO l6kst/iTuou1W3yYO9qbYp ZsLDz+Aje6 sjW7l6yHlqPEIkHnOMJ1uz UbyL2NZS2zb4UwZGcMPbC7 KIMmv1GqVHv9CKvkJfUaKN OlxlLyG7GP SZxZNOoFk8ZrmEBhNmZ7GG PXAHotRLJkU2RuEADibCXj laBlWQztLUIcIAWgGq5Tvs NvZGluZyAv SJOljiKewUszRXolT0RuvN zlDXCmDPujYZHEA9YaER4t E40iEPQh (more content not included)... Normal [facility] Ethanolon 08-14-2022 Ethanol [Mass/Vol] 375 mg/dL Abnormal <=7 [facility] Comment on above: Result Comment: Crit ical Result verified by repeat analysis\Critical Result S_ETOH:375.0 Called to [facility] AT by ZOFIA [place] And Read Back For Confirmation at: 08/14/2022 02:09:38 Performed By: #### 2 [id number], [id number], [id number], 1279572, 6477751, 9291683, 6344990, 9998557, 5033607, 9321313 ####[facility] [address] [place] [address] HEMATOLOGYOrdered By: SYSTEM SYSTEM on 08-14-2022 Basophils/100 WBC (Bld) 2.0 % Normal 0.0 - 2.0 % [facility] Basophils/Leukocytes Auto (Bld) [Pure # fraction] 0.1 E9/L Normal 0.0 - 0.2 E9/L [facility] Eosinophils/100 WBC (Bld) 6.6 % Normal 0.0 - 8.0 % [facility] Eosinophils/Leukocytes Auto (Bld) [Pure # fraction] 0.2 E9/L Normal 0.0 - 0.5 E9/L [facility] Lymphocytes/100 WBC (Bld) 33.3 % Normal 14.0 - 50.0 % [facility] Lymphocytes/Leukocytes Auto (Bld) [Pure # fraction] 1.0 E9/L Normal 1.0 - 4.0 E9/L [facility] Monocytes/100 WBC (Bld) 12.0 % Normal 4.0 - 14.0 % [facility] Monocytes/Leukocytes Auto (Bld) [Pure # fraction] 0.4 E9/L Normal 0.2 - 1.0 E9/L [facility] Neutrophils/100 WBC (Bld) 46.1 % Normal 36.0 - 75.0 % [facility] Neutrophils/Leukocytes Auto (Bld) [Pure # fraction] 1.4 E9/L Low 2.0 - 7.5 E9/L [facility] HEMATOLOGYOrdered By: Emperatriz [place] on 08-14-2022 Erythrocyte distribution width (RBC) [Ratio] 13.6 % Normal 10.9 - 14.2 % [facility] Hematocrit (Bld) [Volume fraction] 37.2 % Low 37.7 - 49.0 % [facility] Hemoglobin (Bld) [Mass/Vol] 12.4 g/dL Low 13.5 - 17.5 gm/dL [facility] MCH (RBC) [Entitic mass] 33.6 pg Normal 27.0 - 34.0 pg [facility] MCHC (RBC) [Mass/Vol] 33.4 g/dL Normal 31.4 - 36.0 gm/dL [facility] MCV (RBC) [Entitic vol] 100.4 fL High 80.0 - 100.0 fL [facility] Platelet mean volume (Bld) [Entitic vol] 6.7 fL Normal 6.4 - 10.8 fL [facility] Platelets (Bld) [#/Vol] 161.0 E9/L Normal 150. 0 - 500.0 E9/L [facility] RBC (Bld) [#/Vol] 3.7 E12/L Low 4.3 - 5.9 E12/L [facility] WBC corrected for nucl RBC Auto (Bld) [#/Vol] 3.1 E9/L Low 4.0 - 11.0 E9/L [facility] Hep Func Panelon 08-14-2022 Albumin [Mass/Vol] 3.3 g/dL Normal 3.3-5.0 [facility] Comment on above: Performed By: #### 2 509351, [id number], 96979850, 9933562, 1086161, 4614549, 4858454, 6583892, 1492621, 8012923 ####[facility] [address] [place] [address] Albumin/Globulin (S) [Mass conc ratio] 0.7 Low 1.1-2.2 [facility] Comment on above: Performed By: #### 2 617551, [id number], 70784800, 7025122, 5578157, 8116424, 9615312, 6602986, 8129759, 9477040 ####[facility] [address] [place] [address] ALP [Catalytic activity/Vol] 86 Int._Unit/L Normal 21-98 [facility] Comment on above: Performed By: #### 2 213110, 11861533, 70440675, 9380815, 1662465, 2774876, 0068991, 4982059, 6150039, 3516619 ####[facility] [address] [place] [address] ALT No additional P-5'-P [Catalytic activity/Vol] 24 Int._Unit/L Normal 6-46 [facility] Comment on above: Performed By: #### 2 556141, 37539413, 14841454, 7498137, 4463360, 1588438, 7241185, 0681794, 7633036, 1243679 ####[facility] [address] [place] [address] AST [Catalytic activity/Vol] 40 Int._Unit/L Normal 5-43 [facility] Comment on above: Performed By: #### 2 198183, 73833686, 40436547, 0880956, 7107114, 8834860, 3998279, 4779383, 3763438, 6770284 ####[facility] [address] [place] [address] Bilirubin [Mass/Vol] 0.6 mg/dL Normal 0.0-1.1 [facility] Comment on above: Performed By: #### 2 268632, 12172427, 76284623, 2983258, 2904790, 9683707, 7603931, 2704949, 0235195, 0126605 ####[place] [id number] Bilirubin.direct [Mass/Vol] 0.2 mg/dL Normal 0.1-0.4 [facility] Comment on above: Performed By: #### 2 224595, 51523059, 31811944, 9600298, 8581562, 1368717, 4444958, 9121612, 5512982, 8448245 ####[facility] [address] [place] [address] Bilirubin.indirect [Mass or moles/Vol] 0.4 mg/dL Normal 0.1-0.9 [facility] Comment on above: Performed By: #### 2 866675, 94205481, 68975752, 5411246, 0465399, 2250228, 0042367, 6366847, 8211174, 0671959 ####[place] [address] [place] [address] Globulin (S) [Mass/Vol] 4.5 g/dL High 1.4-4.0 [facility] Comment on above: Performed By: #### 2 309537, 63363378, 71049939, 8214039, 5894075, 8142624, 8827283, 3813404, 7564112, 9112494 ####[facility] [address] [place] [address] Protein [Mass/Vol] 7.8 g/dL Normal 6.0-7.8 [facility] Comment on above: Performed By: #### 2 291992, 50626010, 02870100, 2454768, 2611325, 7377643, 9277950, 7474822, 1410611, 2827198 ####[facility] [address] [place] [address] Lactic Acidon 08-14-2022 Lactate [Mass/Vol] 1.4 mmol/L Normal 0.5-2.2 [facility] Comment on above: Performed By: #### 2 297304, 24539738, 84368632, 3653327, 6517083, 7738947, 4867451, 9621799, 1235814, 4563236 ####[facility] [address] [place] [address] Lipase Levelon 08-14-2022 Lipase [Catalytic activity/Vol] 52 U/L Normal 13-58 [facility] Comment on above: Performed By: #### 2 712694, 47354865, 37924993, 0150142, 3013157, 6762838, 2198873, 7906487, 2965918, 2259541 ####[place] [address] [place] [address] PT & PTTon 08-14-2022 aPTT Coag (PPP) [Time] 34.7 second(s) Normal 25.1-36.5 [facility] Comment on above: Result Comment: Para meter 15 days - 4 weeks 1 - 5 months 6 - 11 months 1 - 5 years 6 - 10 years 11 - 17 years PTT Mean: 35.4 (27.6-45.6) Mean: 33.5 (24.8-40.7) Mean: 32.4 (25.1-40.7) Mean: 31.6 (24.0-39.2) Mean: 31.6 (26.9-38.7) Mean: 31.0 (24.6-38.4) Pediatric Reference ranges were obtained from a study by momo Blakely al. prepared from 1437 samples obtained at 7 different centers using the same coagulation reagent and instrumentation [place] [facility] [place] there are no coagulation studies available worldwide for children to 14 days, and no normal ranges. Heparin therapeutic range (represented by Anti-Factor Xa activity of 0.2 - 0.4 U/mL) corresponds to PTT of 56.6 - 109.0 sec. Performed By: #### 2 [id number], [id number], [id number], [id number], [id number], [id number], [id number], [id number], [id number] ####[facility] [id number] [place] [address] INR Coag (PPP) [Relative time] 1.0 {INR} Invalid Interpretation Code [facility] Comment on above: Result Comment: INR results are specifically intended to assess patients stabilized on long-term Anticoagulation therapy suggested INR?s ?Less Intensive Anticoagulation? 2.0 ? 3.0 Conventional Range 3.0 ? 4.5 Performed By: #### 2 [id number], [id number], [id number], [id number], [id number], [id number], 8687334, 2447531, [id number], [id number] ####[facility] [id number] [place] [address] PT Coag (PPP) [Time] 10.5 second(s) Normal 9.4-12.5 [facility] Comment on above: Result Comment: 15 d ays - 4 weeks 1 - 5 months 6 -11 months 1-5 years 6-10 years 11 -17 years Mean: 11.2 (9.5-12.6) Mean: 11.0 (9.7-12.8) Mean: 11.0 (9.8-13.0) Mean: 11.3 (9.9-13.4) Mean: 11.7 (10.0-14.6) Mean: 11.8 (10.0 - 14.1) Pediatric Reference ranges were obtained from a study by lashawn Blakely. prepared from 1437 samples obtained at 7 different centers using the same coagulation reagent and instrumentation as [facility] [place]. Currently there are no coagulation studies available worldwide for children to 14 days, and no normal ranges. Performed By: #### 2 [id number], [id number], [id number], 3666000, 8158289, 0011350, 7446403, 3198134, 1986917, 5993022 ####[facility] [address] [place] [address] Pre-Arrival Noteon 3 Pre-Arrival Note Pre-Arrival Summary Name: , STACY Current Date: 08/14/2022 01:12:15 EST Gender: Male Date of : Age: 66 Pre-Arrival Type: EMS ETA: 08/14/2022 01:03:00 EST Primary Care Physician: Presenting Problem: intox Pre-Arrival User: Mayela Robles RN Referring Source: Location: Completion Date/Time: 08/14/2022 01:04:00 [facility] Emergency Department Pre-Hospital Report Form Vital Signs: Pre-Hospital Report: Treatment in Route: Response to Treatment: Misc. Issues: Normal [facility] RAD - Preliminary Cat Scan R eporton 08-14-2022 RAD - Preliminary Cat Scan Report [id number] 0CD:127 Normal [facility] Troponinon 08-14-2022 Troponin I.cardiac [Mass/Vol] 7.60 pg/mL Low 15.90-38.40 [facility] Comment on above: Result Comment: The 95% CI (Confidence Interval) PPV (Positive Predictive Value) for myocardial infarction in females is 38 pg/mL, in males 51 pg/mL. The results should be used in conjunction with clinical conditions of myocardial infarction. (Access High Sensitivity Troponin I Instructions For Use, Mariah Erna, February 2018) Performed By: #### 2 648201, [id number], [id number], 0568389, 9332042, 2338764, 8397337, 5960674, 4679913, 1577844 ####[facility] [address] [place] [address] U Drug Screenon 08-14-2022 Amphetamines Screen method >1000 ng/mL Ql (U) Negative Normal Negative [facility] Comment on above: Result Comment: Nega tive Cutoff: <1000 ng/mL Performed By: #### 2 895541, [id number], 5515900, 9572357, 48079976, 51076282, 6404486 #### [facility] [address] [place] [address] Barbiturates Screen Ql (U) Negative Normal Negative [facility] Comment on above: Result Comment: Nega tive Cutoff: <200 ng/mL Performed By: #### 2 379780, 67109682, 7445818, 9316037, 05345648, 53508211, 8848893 #### [facility] [address] [place] [address] Benzodiazepines Ql (U) Negative Normal Negative [facility] Comment on above: Result Comment: Nega tive Cutoff: <200 ng/mL Performed By: #### 2 444507, 20699226, 4459039, 4566612, 09156024, 54715462, 2767277 #### [facility] [address] [place] [address] Cocaine Ql (U) Negative Normal Negative [facility] Comment on above: Result Comment: Nega tive Cutoff: <300 ng/mL Performed By: #### 2 900833, 27396976, 6884787, 3805575, 89701938, 70043223, 4397513 #### [facility] [address] [place] [address] Opiates Screen Ql (U) Negative Normal Negative [facility] Comment on above: Result Comment: Nega tive Cutoff: <300 ng/mL Performed By: #### 2 143085, 24601343, 6724173, 8158943, 94633260, 99267140, 5264575 #### [facility] [address] [place] [address] Phencyclidine Screen method >25 ng/mL Ql (U) Negative Normal Negative [facility] Comment on above: Result Comment: Nega tive Cutoff: <25 ng/mL These drug screen results are to be used for medical (i.e., treatment) purposes only. Unconfirmed drug screening results must not be used for non-medical purposes (e.g., employment testing, legal testing). Performed By: #### 2 673221, 98979980, 5612446, 3062120, 94155449, 44118630, 5241018 #### [facility] [address] [place] [address] Tetrahydrocannabinol Screen method >50 ng/mL Ql (U) Negative Normal Negative [facility] Comment on above: Result Comment: Nega tive Cutoff: <50 ng/mL Performed By: #### 2 107157, 17418714, 4278840, 5017455, 35480991, 16315360, 7503427 #### [facility] [address] [place] [address] eGFRon 08-14-2022 GFR/1.73 sq M.predicted among blacks MDRD (S/P/Bld) [Vol rate/Area] mL/min/{1.73_m2} Normal >=59 [facility] Comment on above: Order Comment: Order added by Discern Expert. Result Comment: eGFR is race adjusted. AA=. Performed By: #### 2 619454, 54781777, 68650997, 9340259, 6057908, 7932820, 9777450, 9523797, 9533128, 5398976 ####[facility] [address] [place] [address] GFR/1.73 sq M.predicted among non-blacks MDRD (S/P/Bld) [Vol rate/Area] mL/min/{1.73_m2} Normal >=59 [facility] Comment on above: Order Comment: Order added by Discern Expert. Result Comment: Marketing And Outreach Coordinator julee kidney disease could be indicated at eGFR's of less than 60 mL/min/1.73m2. Kidney failure is indicated at less than 15 mL/min/1.73m2. Performed By: #### 2 461109, 50146703, 22788920, 3694246, 3432014, 7576050, 6590540, 6698600, 2330700, 2654175 ####[facility] [address] [place] [address] Insurance Correspondence Off iceon 08-13-2022 Insurance Correspondence Office [id number] 0CD:127 Normal [facility] Auth for Release of Medical Recordson 08-05-2022 Auth for Release of Medical Records [id number] 0CD:127 Normal [facility] Drug Scr,Pain Mgmt Uon 05-07 6-Acetylmorphine, Ur Not detected Normal [facility] Comment on above: Performed By: #### A DAUPM #### [facility] [address] [place] [address] Heat Plant Specialist: Danie Agrawal MD [facility] [address] [place] [address] Heat Plant Specialist: Vikash Montoya MD 7-Aminoclonazep, Ur Not detected Normal [facility] Comment on above: Performed By: #### A DAUPM #### [facility] [address] [place] [address] Heat Plant Specialist: Danie Agrawal MD [facility] [address] [place] [address] Heat Plant Specialist: Vikash Montoya MD Vafyp-AG-Tevbdj, Ur Not detected Normal [facility] Comment on above: Performed By: #### A DAUPM #### [facility] [address] [place] [address] Heat Plant Specialist: Danie Agrawal MD [facility] [address], [place] [id number] Heat Plant Specialist: Vikash Montoya MD Nrbps-Nf-Bobouvrfn Not detected Normal [facility] Comment on above: Performed By: #### A DAUPM #### [facility] [address] [place] [address] Heat Plant Specialist: Danie Agrawal MD [facility] [address], [place] [id number] Heat Plant Specialist: Vikash Montoya MD Alprazolam, Ur Not detected Normal [facility] Comment on above: Performed By: #### A DAUPM #### [facility] [address] [place] [address] Heat Plant Specialist: Danie Agrawal MD [facility] [address] [place] [phone] Heat Plant Specialist: Vikash Montoya MD Amphetamine, Ur Not detected Normal [facility] Comment on above: Performed By: #### A DAUPM #### [facility] [address] [place] [address] Heat Plant Specialist: Danie Agrawal MD [facility] [address] [place] [phone] Heat Plant Specialist: Vikash Montoya MD Barbiturates, Ur Not detected Normal [facility] Comment on above: Performed By: #### A DAUPM #### [facility] [address] [place] [address] Heat Plant Specialist: Danie Agrawal MD [facility] [address], [place] [id number] Heat Plant Specialist: Vikash Montoya MD Benzoylecgonine, Ur Not detected Normal [facility] Comment on above: Performed By: #### A DAUPM #### [facility] [address] [place] [address] Heat Plant Specialist: Danie Agrawal MD [facility] [address], [place] [phone] Heat Plant Specialist: Vikash Montoya MD Buprenorphine, Ur Not detected Normal [facility] Comment on above: Performed By: #### A DAUPM #### [facility] [address] [place] [address] Heat Plant Specialist: Danie Agrawal MD [facility] [address], [place] [id number] Heat Plant Specialist: Vikash Montoya MD Carisoprodol, Ur Not detected Normal [facility] Comment on above: Result Comment: (NOT E) The carisoprodol immunoassay has cross-reactivity to carisoprodol and meprobamate. Performed By: #### A DAUPM #### [facility] [address] [place] [address] Heat Plant Specialist: Danie Agrawal MD [facility] [address] [place] [phone] Heat Plant Specialist: Vikash Montoya MD Clonazepam, Ur Not detected Normal [facility] Comment on above: Performed By: #### A DAUPM #### [facility] [address] [place] [address] Heat Plant Specialist: Danie Agrawal MD [facility] [address], [place] [id number] Heat Plant Specialist: Vikash Montoya MD Codeine, Ur Not detected Normal [facility] Comment on above: Performed By: #### A DAUPM #### [facility] [address] [place] [address] Heat Plant Specialist: Danie Agrawal MD [facility] [address] [place] [address] Heat Plant Specialist: Vikash Montoya MD Creatinine [Mass/Vol] 103.4 mg/dL Normal 20.0-400.0 [facility] Comment on above: Performed By: #### A DAUPM #### [facility] [address] [place], [place] [id number] Heat Plant Specialist: Danie Agrawal MD [facility] [address], [place] [phone] Heat Plant Specialist: Vikash Montoya MD Diazepam, Ur Not detected Normal [facility] Comment on above: Performed By: #### A DAUPM #### [facility] [address] [place] [address] Heat Plant Specialist: Danie Agrawal MD [facility] [address] [place] [phone] Heat Plant Specialist: Vikash Montoya MD EER Hi Res Interp Ur See Note Normal [facility] Comment on above: Result Comment: (NOT E) Authorized individuals can access the [facility] Enhanced Report using the following link: [email or web address] Performed By: [facility] [address] [place] [address] Hand Endband Cutter: Chema Antunez MD, PhD Performed By: #### A DAUPM #### [facility] [address] [place], [place] [address] Heat Plant Specialist: Danie Agrawal MD [facility] [address], [place] [phone] Heat Plant Specialist: Vikash Montoya MD Ethyl Glucuronide Ur Present Normal [facility] Comment on above: Performed By: #### A DAUPM #### [facility] [address] [place], [place] [id number] Heat Plant Specialist: Danie Agrawal MD [facility] [address] [place] [address] Heat Plant Specialist: Vikash Montoya MD Fentanyl, Ur Not detected Normal [facility] Comment on above: Performed By: #### A DAUPM #### [facility] [address] [place] [address] Heat Plant Specialist: Danie Agrawal MD [facility] [address], [place] [phone] Heat Plant Specialist: Vikash Montoya MD Gabapentin Not detected Normal [facility] Comment on above: Performed By: #### A DAUPM #### [facility] [address] [place] [address] Heat Plant Specialist: Danie Agrawal MD [facility] [address] [place] [address] Heat Plant Specialist: Vikash Montoya MD Hydrocodone, Ur Not detected Normal [facility] Comment on above: Performed By: #### A DAUPM #### [facility] [address] [place] [address] Heat Plant Specialist: Danie Agrawal MD [facility] [address], [place] [phone] Heat Plant Specialist: Vikash Montoya MD Hydromorphone, Ur Not detected Normal [facility] Comment on above: Performed By: #### A DAUPM #### [facility] [address] [place] [address] Heat Plant Specialist: Danie Agrawal MD [facility] [address], [place] [id number] Heat Plant Specialist: Vikash Montoya MD Lorazepam, Ur Not detected Normal [facility] [place] Comment on above: Performed By: #### A DAUPM #### [facility] [address] [place] [address] Heat Plant Specialist: Danie Agrawal MD [facility] [address] [place] [address] Heat Plant Specialist: Vikash Montoya MD Marijuana Metab, Ur Not detected Normal [facility] Comment on above: Performed By: #### A DAUPM #### [facility] [address] [place] [address] Heat Plant Specialist: Danie Agrawal MD [facility] [address], [place] [phone] Heat Plant Specialist: Vikash Montoya MD MDA, Ur Not detected Normal [facility] Comment on above: Performed By: #### A DAUPM #### [facility] [address] [place] [address] Heat Plant Specialist: Danie Agrawal MD [facility] [address], [place] [phone] Heat Plant Specialist: Vikash Montoya MD MDEA, Ciara, Ur Not detected Normal [facility] [place] Comment on above: Performed By: #### A DAUPM #### [facility] [address] [place] [address] Heat Plant Specialist: Danie Agrawal MD [facility] [address] [place] [phone] Heat Plant Specialist: Vikash Montoya MD MDMA, Ecstasy, Ur Not detected Normal [facility] Comment on above: Performed By: #### A DAUPM #### [facility] [address] [place] [address] Heat Plant Specialist: Danie Agrawal MD [facility] [address] [place] [phone] Heat Plant Specialist: Vikash Montoya MD Meperidine metab, Ur Not detected Normal [facility] Comment on above: Performed By: #### A DAUPM #### [facility] [address] [place] [address] Heat Plant Specialist: Danie Agrawal MD [facility] [address] [place] [address] Heat Plant Specialist: Vikash Montoya MD Methadone, Ur Not detected Normal [facility] [place] Comment on above: Performed By: #### A DAUPM #### [facility] [address] [place] [address] Heat Plant Specialist: Danie Agrawal MD [facility] [address], [place] [id number] Heat Plant Specialist: Vikash Montoya MD Methamphetamine, Ur Not detected Normal [facility] Comment on above: Performed By: #### A DAUPM #### [facility] [address] [place] [address] Heat Plant Specialist: Danie Agrawal MD [facility] [address] [place] [address] Heat Plant Specialist: Vikash Montoya MD Methylphenidate Not detected Normal [facility] Comment on above: Performed By: #### A DAUPM #### [facility] [address] [place] [address] Heat Plant Specialist: Danie Agrawal MD [facility] [address], [place] [phone] Heat Plant Specialist: Vikash Montoya MD Midazolam, Ur Not detected Normal [facility] [place] Comment on above: Performed By: #### A DAUPM #### [facility] [address] [place] [address] Heat Plant Specialist: Danie Agrawal MD [facility] [address], [place] [phone] Heat Plant Specialist: Vikash Montoya MD Morphine, Ur Not detected Normal [facility] Comment on above: Performed By: #### A DAUPM #### [facility] [address] [place] [address] Heat Plant Specialist: Danie Agrawal MD [facility] [address], [place] [phone] Heat Plant Specialist: Vikash Montoya MD Naloxone Not detected Normal [facility] Comment on above: Performed By: #### A DAUPM #### [facility] [address] [place] [address] Heat Plant Specialist: Danie Agrawal MD [facility] [address] [place] [address] Heat Plant Specialist: Vikash Montoya MD Norbuprenorphine, Ur Not detected Normal [facility] Comment on above: Performed By: #### A DAUPM #### [facility] [address] [place] [address] Heat Plant Specialist: Danie Agrawal MD [facility] [address] [place] [address] Heat Plant Specialist: Vikash Montoya MD Nordiazepam, Ur Not detected Normal [facility] Comment on above: Performed By: #### A DAUPM #### [facility] [address] [place] [address] Heat Plant Specialist: Danie Agrawal MD [facility] [address] [place] [address] Heat Plant Specialist: MD Calixto Patriciofentanyl, Ur Not detected Normal [facility] Comment on above: Performed By: #### A DAUPM #### [facility] [address] [place] [address] Heat Plant Specialist: Danie Agrawal MD [facility] [address] [place] [address] Heat Plant Specialist: MD Calixto Patriciohydrocodone, Ur Not detected Normal [facility] Comment on above: Performed By: #### A DAUPM #### [facility] [address] [place] [address] Heat Plant Specialist: Danie Agrawal MD [facility] [address] [place] [address] Heat Plant Specialist: MD Calixto Patriciooxycodone, Ur Not detected Normal [facility] Comment on above: Performed By: #### A DAUPM #### [facility] [address] [place] [address] Heat Plant Specialist: Danie Agrawal MD [facility] [address] [place] [address] Heat Plant Specialist: Vikash Montoya MD Noroxymorphone, Ur Not detected Normal [facility] Comment on above: Performed By: #### A DAUPM #### [facility] [address] [facility] [place] [address] Heat Plant Specialist: Danie Agrawal MD [facility] [address] [place] [address] Heat Plant Specialist: Vikash Montoya MD Oxazepam, Ur Not detected Normal [facility] Comment on above: Performed By: #### A DAUPM #### [facility] [address] [place] [address] Heat Plant Specialist: Danie Agrawal MD [facility] [address] [place] [address] Heat Plant Specialist: Vikash Montoya MD Oxycodone, Ur Not detected Normal [facility] [place] Comment on above: Performed By: #### A DAUPM #### [facility] [address] [place] [address] Heat Plant Specialist: Danie Agrawal MD [facility] [address] [place] [address] Heat Plant Specialist: Vikash Montoya MD Oxymorphone, Ur Not detected Normal [facility] Comment on above: Performed By: #### A DAUPM #### [facility] [address] [place] [address] Heat Plant Specialist: Danie Agrawal MD [facility] [address] [place] [address] Heat Plant Specialist: Vikash Montoya MD PCP, Ur Not detected Normal [facility] Comment on above: Performed By: #### A DAUPM #### [facility] [address] [place], [place] [id number] Heat Plant Specialist: Danie Agrawal MD [facility] [address] [place] [address] Heat Plant Specialist: Vikash Montoya MD Phentermine, Ur Not detected Normal [facility] Comment on above: Performed By: #### A DAUPM #### [facility] [address] [place] [address] Heat Plant Specialist: Danie Agrawal MD [facility] [address] [place] [address] Heat Plant Specialist: Vikash Montoya MD Pregabalin Not detected Normal [facility] Comment on above: Performed By: #### A DAUPM #### [facility] [address] [place] [address] Heat Plant Specialist: Danie Agrawal MD [facility] [address] [place] [address] Heat Plant Specialist: Vikash Montoya MD Tapentadol o Sul, Ur Not detected Normal [facility] Comment on above: Performed By: #### A DAUPM #### [facility] [address] [place] [address] Heat Plant Specialist: Danie Agrawal MD [facility] [address] [place] [address] Heat Plant Specialist: Vikash Montoya MD Tapentadol, Ur Not detected Normal [facility] Comment on above: Performed By: #### A DAUPM #### [facility] [address] [place] [address] Heat Plant Specialist: Danie Agrawal MD [facility] [address] [place] [address] Heat Plant Specialist: Vikash Montoya MD Tardeted Drg Chamorro Int See Note Normal [facility] Comment on above: Result Comment: (NOT E) __ NO DRUGS PROVIDED __ Please call [facility] [email or web address] Client Services at [phone] for Refinery Operator Visbreaking interpretation if applicable. Alternatively, please consider the TARGETED DRUG PROF, LOCOMOTIVE ELECTRICIAN/EMIT, UR ([id number]) which does not require medication information or provide compliance interpretation. __ INTERPRETIVE INFORMATION: Targeted drug profile Interp Interpretation depends on accuracy and completeness of patient medication information submitted by client. Performed By: #### A DAUPM #### [facility] [address] [place] [address] Heat Plant Specialist: Danie Agrawal MD [facility] [address] [place] [address] Heat Plant Specialist: Vikash Montoya MD Targeted Drg Chamorro, Ur See Below Normal [facility] Comment on above: Result Comment: (NOT E) Methodology: Qualitative Enzyme Immunoassay and Qualitative Liquid Chromatography-Tandem Mass Spectrometry, Quantitative Spectrophotometry The absence of expected drug(s) and/or drug metabolite(s) may indicate non-compliance, inappropriate timing of specimen collection relative to drug administration, poor drug absorption, diluted/adulterated urine, or limitations of testing. The concentration must be greater than or equal to the cutoff to be reported as present. If specific drug concentrations are required, contact the laboratory within two weeks of specimen collection to request quantification by a second analytical technique. Interpretive questions should be directed to the laboratory. Results based on immunoassay detection that do not match clinical expectations should be interpreted with caution. Confirmatory testing by mass spectrometry for immunoassay-based results is available, if ordered within two weeks of specimen collection. Additional charges apply. For medical purposes only; not valid for forensic use. This test was developed and its performance characteristics determined by [facility] [email or web address]. It has not been cleared or approved by the [place] Food and Drug Administration. This test was performed in a CLIA certified laboratory and is intended for clinical purposes. Performed By: #### A DAUPM #### [facility] [address] [place] [address] Heat Plant Specialist: Danie Agrawal MD [address] [phone] Heat Plant Specialist: Vikash Montoya MD Temazepam, Ur Not detected Normal [facility] [place] Comment on above: Performed By: #### A DAUPM #### [facility] [address] [place] [address] Heat Plant Specialist: Danie Agrawal MD [address] [phone] Heat Plant Specialist: Vikash Montoya MD Tramadol, Ur Not detected Normal [facility] Comment on above: Performed By: #### A DAUPM #### [facility] [address] [place] [address] Heat Plant Specialist: Danie Agrawal MD [address] [phone] Heat Plant Specialist: Vikash Montoya MD Zolpidem Metabolite Not detected Normal [facility] Comment on above: Performed By: #### A DAUPM #### [facility] [address] [place] [address] Heat Plant Specialist: Danie Agrawal MD [facility] [address] [place] [phone] Heat Plant Specialist: Vikash Montoya MD Zolpidem, Ur Not detected Normal [facility] Comment on above: Performed By: #### A DAUPM #### [facility] [address] [place] [address] Heat Plant Specialist: Danie Agrawal MD [facility] [address] [place] [address] Heat Plant Specialist: Vikash Montoya MD Drug Scr,Pain Mgmt Uon 05-02 Drugs Expected, Ur .URINE Normal [facility] Comment on above: Performed By: #### A DAUPM #### [facility] [address] [address] Heat Plant Specialist: Danie Agrawal MD [facility] [address] [place] [address] Heat Plant Specialist: Vikash Montoya MD CHEMISTRYOrdered By: SYSTEM SYSTEM on 04-19-2022 Albumin [Mass/Vol] 3.4 g/dL Normal 3.3 - 5.0 gm/dL [facility] Albumin/Globulin [Mass ratio] 0.7 {ratio} Low 1.1 - 2.2 [facility] ALP [Catalytic activity/Vol] 120 [iU]/d High 21 - 98 Int._Unit/L [facility] ALT No additional P-5'-P [Catalytic activity/Vol] 70 [iU]/d High 6 - 46 Int._Unit/L [facility] Anion gap [Moles/Vol] 12 mmol/L Normal 6 - 16 mEq/L [facility] AST [Catalytic activity/Vol] 140 [iU]/d High 5 - 43 Int._Unit/L [facility] Bilirubin [Mass/Vol] 1.0 mg/dL Normal 0.0 - 1 .1 mg/dL [facility] Bilirubin.direct [Mass/Vol] 0.3 mg/dL Normal 0.1 - 0.4 mg/dL [facility] Bilirubin.indirect [Mass or moles/Vol] 0.7 mg/dL Normal 0.1 - 0.9 mg/dL [facility] Calcium [Mass/Vol] 8.8 mg/dL Low 8.9 - 11. 1 mg/dL [facility] Chloride [Moles/Vol] 96 mmol/L Low 101 - 1 11 mmol/L [facility] CO2 [Moles/Vol] 29 mmol/L Normal 21 - 31 mmol/L [facility] Creatinine [Mass/Vol] 0.7 mg/dL Normal 0.5 - 1.3 mg/dL [facility] GFR/1.73 sq M.predicted among blacks MDRD (S/P/Bld) [Vol rate/Area] mL/min/1.73 m2 Normal >=59mL/min/ 1.73 m2 [facility] Chem S GFR/1.73 sq M.predicted among non-blacks MDRD (S/P/Bld) [Vol rate/Area] mL/min/1.73 m2 Normal >=59mL/min/ 1.73 m2 [facility] Chem S Globulin (S) [Mass/Vol] 4.6 g/dL High 1.4 - 4.0 gm/dL [facility] Glucose [Mass/Vol] 83 mg/dL Normal 55 - 199 mg/dL [facility] Magnesium [Mass/Vol] 1.5 mg/dL Normal 1.3 - 2 .4 mg/dL [facility] Potassium [Moles/Vol] 4.4 mmol/L Normal 3.5 - 5.3 mmol/L [facility] Protein [Mass/Vol] 8.0 g/dL High 6.0 - 7.8 gm/dL [facility] Sodium [Moles/Vol] 133 mmol/L Low 135 - 145 mmol/L [facility] Urea nitrogen [Mass/Vol] mg/dL Normal 5 - 21 mg/dL [facility] Urea nitrogen/Creatinine [Mass ratio] Unable to Calculate Invalid Interpretation Code 10 - 20 [facility] Amphetamines Screen method >1000 ng/mL Ql (U) Negative (04/19/22 2:25 AM) Normal Negative [facility] Barbiturates Screen Ql (U) Negative (04/19/22 2:25 AM) Normal Negative [facility] Benzodiazepines Ql (U) Negative (04/19/22 2:25 AM) Normal Negative [facility] Cocaine Ql (U) Negative (04/19/22 2:25 AM) Normal Negative [facility] Opiates Screen Ql (U) Positive 1 *ABN* (04/19/22 2:25 AM) Invalid Interpretation Code Negative [facility] Comment on above: Result Comment: Crit ical Result verified by repeat analysis\No confirmation requested by Physican\Unconfirmed by alternate method Phencyclidine Screen method >25 ng/mL Ql (U) Negative (04/19/22 2:25 AM) Normal Negative [facility] Tetrahydrocannabinol Screen method >50 ng/mL Ql (U) Negative (04/19/22 2:25 AM) Normal Negative [facility] HEMATOLOGYOrdered By: SYSTEM SYSTEM on 04-19-2022 Basophils/100 WBC (Bld) 1.4 % Normal 0.0 - 2.0 % [facility] Basophils/Leukocytes Auto (Bld) [Pure # fraction] 0.1 E9/L Normal 0.0 - 0.2 E9/L [facility] Eosinophils/100 WBC (Bld) 3.8 % Normal 0.0 - 8.0 % [facility] Eosinophils/Leukocytes Auto (Bld) [Pure # fraction] 0.1 E9/L Normal 0.0 - 0.5 E9/L [facility] Lymphocytes/100 WBC (Bld) 11.0 % Low 14.0 - 50.0 % [facility] Lymphocytes/Leukocytes Auto (Bld) [Pure # fraction] 0.4 E9/L Low 1.0 - 4.0 E9/L [facility] Monocytes/100 WBC (Bld) 9.8 % Normal 4.0 - 14.0 % [facility] Monocytes/Leukocytes Auto (Bld) [Pure # fraction] 0.3 E9/L Normal 0.2 - 1.0 E9/L [facility] Neutrophils/100 WBC (Bld) 74.0 % Normal 36.0 - 75.0 % [facility] Neutrophils/Leukocytes Auto (Bld) [Pure # fraction] 2.6 E9/L Normal 2.0 - 7.5 E9/L [facility] HEMATOLOGYOrdered By: Liza Winchester on 04-19-2022 Erythrocyte distribution width (RBC) [Ratio] 13.3 % Normal 10.9 - 14.2 % [facility] Hematocrit (Bld) [Volume fraction] 41.8 % Normal 37.7 - 49.0 % [facility] Hemoglobin (Bld) [Mass/Vol] 14.0 g/dL Normal 13.5 - 17.5 gm/dL [facility] MCH (RBC) [Entitic mass] 32.7 pg Normal 27.0 - 34.0 pg [facility] MCHC (RBC) [Mass/Vol] 33.4 g/dL Normal 31.4 - 36.0 gm/dL [facility] MCV (RBC) [Entitic vol] 98.1 fL Normal 80.0 - 100.0 fL [facility] Platelet mean volume (Bld) [Entitic vol] 7.7 fL Normal 6.4 - 10.8 fL [facility] Platelets (Bld) [#/Vol] 118.0 E9/L Low 150. 0 - 500.0 E9/L [facility] RBC (Bld) [#/Vol] 4.3 E12/L Normal 4.3 - 5.9 E12/L [facility] WBC corrected for nucl RBC Auto (Bld) [#/Vol] 3.5 E9/L Low 4.0 - 11.0 E9/L [facility] BLOOD BANKOrdered By: Ofe Louise on 04-18-2022 ABO/Rh Interp Positive Invalid Interpretation Code [facility] BB Subsection ABSC Gel Interp Negative (04/18/22 3:09 PM) Normal [facility] BB Subsection CHEMISTRYOrdered By: SYSTEM SYSTEM on 04-18-2022 Albumin [Mass/Vol] 3.3 g/dL Normal 3.3 - 5.0 gm/dL [facility] Albumin/Globulin [Mass ratio] 0.8 {ratio} Low 1.1 - 2.2 [facility] ALP [Catalytic activity/Vol] 126 [iU]/d High 21 - 98 Int._Unit/L [facility] ALT No additional P-5'-P [Catalytic activity/Vol] 64 [iU]/d High 6 - 46 Int._Unit/L [facility] Anion gap [Moles/Vol] 18 mmol/L High 6 - 16 mEq/L [facility] AST [Catalytic activity/Vol] 110 [iU]/d High 5 - 43 Int._Unit/L [facility] Bilirubin [Mass/Vol] 0.5 mg/dL Normal 0.0 - 1 .1 mg/dL [facility] Bilirubin.direct [Mass/Vol] 0.2 mg/dL Normal 0.1 - 0.4 mg/dL [facility] Bilirubin.indirect [Mass or moles/Vol] 0.3 mg/dL Normal 0.1 - 0.9 mg/dL [facility] Calcium [Mass/Vol] 8.9 mg/dL Normal 8.9 - 11. 1 mg/dL [facility] Chloride [Moles/Vol] 86 mmol/L Low 101 - 1 11 mmol/L [facility] CO2 [Moles/Vol] 25 mmol/L Normal 21 - 31 mmol/L [facility] Creatinine [Mass/Vol] 0.6 mg/dL Normal 0.5 - 1.3 mg/dL [facility] Ethanol [Mass/Vol] 295 mg/dL Invalid Interpretation Code <=7mg/dL [facility] Comment on above: Result Comment: Crit ical Result verified by repeat analysis\Critical Result S_ETOH:295.0 Called to [facility] AT by BRIDGET SMIELY And Read Back For Confirmation at: 04/18/2022 16:00:49 GFR/1.73 sq M.predicted among blacks MDRD (S/P/Bld) [Vol rate/Area] mL/min/1.73 m2 Normal >=59mL/min/ 1.73 m2 [facility] [place] GFR/1.73 sq M.predicted among non-blacks MDRD (S/P/Bld) [Vol rate/Area] mL/min/1.73 m2 Normal >=59mL/min/ 1.73 m2 [facility] [place] S Globulin (S) [Mass/Vol] 4.2 g/dL High 1.4 - 4.0 gm/dL [facility] Glucose [Mass/Vol] 79 mg/dL Normal 55 - 199 mg/dL [facility] Lactate [Mass/Vol] 1.7 mmol/L Normal 0.5 - 2.2 mmol/L [facility] Lipase [Catalytic activity/Vol] 58 U/L Normal 13 - 58 unit/L [facility] Magnesium [Mass/Vol] 1.5 mg/dL Normal 1.3 - 2 .4 mg/dL [facility] Phosphate [Mass/Vol] 3.1 mg/dL Normal 1.9 - 4 .6 mg/dL [facility] Potassium [Moles/Vol] 3.5 mmol/L Normal 3.5 - 5.3 mmol/L [facility] Protein [Mass/Vol] 7.5 g/dL Normal 6.0 - 7.8 gm/dL [facility] Sodium [Moles/Vol] 125 mmol/L Low 135 - 145 mmol/L [facility] Troponin I.cardiac [Mass/Vol] 5.50 pg/mL Low 15.90 - 38.40 pg/mL [facility] Urea nitrogen [Mass/Vol] mg/dL Normal 5 - 21 mg/dL [facility] [place] [facility] Urea nitrogen/Creatinine [Mass ratio] Unable to Calculate Invalid Interpretation Code [facility] [place] [facility] CHEMISTRYOrdered By: Lab ROP User on 04-18-2022 Glucose [Mass/Vol] 83 mg/dL Normal 55 - 99 mg/dL [facility] [place] Subsection POC Device SN [id number] Invalid Interpretation Code [facility] [place] Sub[place] User ID [id number] Invalid Interpretation [place] [facility] [place] Sub[place] POC Username MIKEY JENKINSILY Invalid Interpretation Code [facility] [place] Subsection COAGULATIONOrdered By: Ban Robles on 04-18-2022 aPTT Coag (PPP) [Time] 33.4 s Normal 25.1 - 36.5 second(s) [facility] [place] Coag INR Coag (PPP) [Relative time] 1.0 {INR} Invalid Interpretation Code [facility] [place] PT Coag (PPP) [Time] 11.1 s Normal 9.4 - 1 2.5 second(s) [facility] [place] [facility] HEMATOLOGYOrdered By: SYSTEM SYSTEM on 04-18-2022 Basophils/100 WBC (Bld) 1.2 % Normal 0.0 - 2.0 % [facility] Basophils/Leukocytes Auto (Bld) [Pure # fraction] 0.0 E9/L Normal 0.0 - 0.2 E9/L [facility] Eosinophils/100 WBC (Bld) 6.0 % Normal 0.0 - 8.0 % [facility] Eosinophils/Leukocytes Auto (Bld) [Pure # fraction] 0.2 E9/L Normal 0.0 - 0.5 E9/L [facility] Lymphocytes/100 WBC (Bld) 23.0 % Normal 14.0 - 50.0 % [facility] Lymphocytes/Leukocytes Auto (Bld) [Pure # fraction] 0.8 E9/L Low 1.0 - 4.0 E9/L [facility] Monocytes/100 WBC (Bld) 12.9 % Normal 4.0 - 14.0 % [facility] Monocytes/Leukocytes Auto (Bld) [Pure # fraction] 0.5 E9/L Normal 0.2 - 1.0 E9/L [facility] Neutrophils/100 WBC (Bld) 56.9 % Normal 36.0 - 75.0 % [facility] Neutrophils/Leukocytes Auto (Bld) [Pure # fraction] 2.0 E9/L Normal 2.0 - 7.5 E9/L [facility] HEMATOLOGYOrdered By: Ofe Louise on 04-18-2022 Erythrocyte distribution width (RBC) [Ratio] 13.1 % Normal 10.9 - 14.2 % [facility] Hematocrit (Bld) [Volume fraction] 37.6 % Low 37.7 - 49.0 % [facility] Hemoglobin (Bld) [Mass/Vol] 12.5 g/dL Low 13.5 - 17.5 gm/dL [facility] MCH (RBC) [Entitic mass] 32.2 pg Normal 27.0 - 34.0 pg [facility] MCHC (RBC) [Mass/Vol] 33.2 g/dL Normal 31.4 - 36.0 gm/dL [facility] MCV (RBC) [Entitic vol] 96.8 fL Normal 80.0 - 100.0 fL [facility] Platelet mean volume (Bld) [Entitic vol] 7.8 fL Normal 6.4 - 10.8 fL [facility] Platelets (Bld) [#/Vol] 104.0 E9/L Low 150. 0 - 500.0 E9/L [facility] RBC (Bld) [#/Vol] 3.9 E12/L Low 4.3 - 5.9 E12/L [facility] WBC corrected for nucl RBC Auto (Bld) [#/Vol] 3.5 E9/L Low 4.0 - 11.0 E9/L [facility] CHEMISTRYOrdered By: SYSTEM SYSTEM on 04-04-2022 25-hydroxyvitamin D3 [Mass/Vol] 27.3 ng/mL Low 30.0 - 100.0 ng/mL [facility] Albumin [Mass/Vol] 3.4 g/dL Normal 3.3 - 5.0 gm/dL [facility] Albumin/Globulin [Mass ratio] 0.8 {ratio} Low 1.1 - 2.2 [facility] ALP [Catalytic activity/Vol] 124 [iU]/d High 21 - 98 Int._Unit/L [facility] ALT No additional P-5'-P [Catalytic activity/Vol] 111 [iU]/d High 6 - 46 Int._Unit/L [facility] Anion gap [Moles/Vol] 16 mmol/L Normal 6 - 16 mEq/L [facility] AST [Catalytic activity/Vol] 271 [iU]/d High 5 - 43 Int._Unit/L [facility] Bilirubin [Mass/Vol] 0.7 mg/dL Normal 0.0 - 1 .1 mg/dL [facility] Bilirubin.direct [Mass/Vol] 0.2 mg/dL Normal 0.1 - 0.4 mg/dL [facility] Bilirubin.indirect [Mass or moles/Vol] 0.5 mg/dL Normal 0.1 - 0.9 mg/dL [facility] Calcium [Mass/Vol] 8.9 mg/dL Normal 8.9 - 11. 1 mg/dL [facility] Chloride [Moles/Vol] 91 mmol/L Low 101 - 1 11 mmol/L [facility] CO2 [Moles/Vol] 29 mmol/L Normal 21 - 31 mmol/L [facility] Cobalamin (Vitamin B12) [Mass/Vol] 656 pg/mL Normal 50 - 1500 pg/mL [facility] Creatinine [Mass/Vol] 0.6 mg/dL Normal 0.5 - 1.3 mg/dL [facility] Ferritin [Mass/Vol] 601 ng/mL High 24 - 336 ng/mL [facility] Folate [Mass/Vol] ng/mL Normal >=6.7ng/mL [facility] Re misol GFR/1.73 sq M.predicted among blacks MDRD (S/P/Bld) [Vol rate/Area] mL/min/1.73 m2 Normal >=59mL/min/ 1.73 m2 [facility] Chem S GFR/1.73 sq M.predicted among non-blacks MDRD (S/P/Bld) [Vol rate/Area] mL/min/1.73 m2 Normal >=59mL/min/ 1.73 m2 [facility] Chem S Globulin (S) [Mass/Vol] 4.4 g/dL High 1.4 - 4.0 gm/dL [facility] Glucose [Mass/Vol] 77 mg/dL Normal 55 - 199 mg/dL [facility] Iron [Mass/Vol] 54 ug/dL Normal 35 - 153 mcg/dL [facility] Iron binding capacity [Mass/Vol] 182 ug/dL Low 250 - 400 mcg/dL [facility] Iron saturation [Mass fraction] 30 % Normal 20 - 50 % [facility] Lipase [Catalytic activity/Vol] 42 U/L Normal 13 - 58 unit/L [facility] Magnesium [Mass/Vol] 1.8 mg/dL Normal 1.3 - 2 .4 mg/dL [facility] Phosphate [Mass/Vol] 3.2 mg/dL Normal 1.9 - 4 .6 mg/dL [facility] Potassium [Moles/Vol] 3.5 mmol/L Normal 3.5 - 5.3 mmol/L [facility] Protein [Mass/Vol] 7.8 g/dL Normal 6.0 - 7.8 gm/dL [facility] Sodium [Moles/Vol] 132 mmol/L Low 135 - 145 mmol/L [facility] Transferrin [Mass/Vol] 130 mg/dL Low 200 - 370 mg/dL [facility] TSH Qn 2.36 m[IU]/L Normal 0.34 - 5.60 mcIU/mL [facility] Urea nitrogen [Mass/Vol] mg/dL Normal 5 - 21 mg/dL [facility] Urea nitrogen/Creatinine [Mass ratio] Unable to Calculate Invalid Interpretation Code 10 - 20 [facility] Sodium [Moles/Vol] 130 mmol/L Low 135 - 145 mmol/L [facility] Sodium [Moles/Vol] 128 mmol/L Low 135 - 145 mmol/L [facility] CHEMISTRYOrdered By: SYSTEM SYSTEM on 04-03-2022 Amphetamines Screen method >1000 ng/mL Ql (U) Negative (04/03/22 8:55 PM) Normal Negative [facility] Barbiturates Screen Ql (U) Negative (04/03/22 8:55 PM) Normal Negative [facility] Benzodiazepines Ql (U) Negative (04/03/22 8:55 PM) Normal Negative [facility] Cocaine Ql (U) Negative (04/03/22 8:55 PM) Normal Negative [facility] Opiates Screen Ql (U) Negative (04/03/22 8:55 PM) Normal Negative [facility] Phencyclidine Screen method >25 ng/mL Ql (U) Negative (04/03/22 8:55 PM) Normal Negative [facility] Tetrahydrocannabinol Screen method >50 ng/mL Ql (U) Negative (04/03/22 8:55 PM) Normal Negative [facility] Albumin [Mass/Vol] 3.3 g/dL Normal 3.3 - 5.0 gm/dL [facility] Albumin/Globulin [Mass ratio] 0.8 {ratio} Low 1.1 - 2.2 [facility] ALP [Catalytic activity/Vol] 118 [iU]/d High 21 - 98 Int._Unit/L [facility] ALT No additional P-5'-P [Catalytic activity/Vol] 99 [iU]/d High 6 - 46 Int._Unit/L [facility] Anion gap [Moles/Vol] 14 mmol/L Normal 6 - 16 mEq/L [facility] AST [Catalytic activity/Vol] 216 [iU]/d High 5 - 43 Int._Unit/L [facility] Bilirubin [Mass/Vol] 0.4 mg/dL Normal 0.0 - 1 .1 mg/dL [facility] Bilirubin.direct [Mass/Vol] 0.2 mg/dL Normal 0.1 - 0.4 mg/dL [facility] Bilirubin.indirect [Mass or moles/Vol] 0.2 mg/dL Normal 0.1 - 0.9 mg/dL [facility] Calcium [Mass/Vol] 8.3 mg/dL Low 8.9 - 11. 1 mg/dL [facility] Chloride [Moles/Vol] 88 mmol/L Low 101 - 1 11 mmol/L [facility] CO2 [Moles/Vol] 26 mmol/L Normal 21 - 31 mmol/L [facility] Creatinine [Mass/Vol] 0.6 mg/dL Normal 0.5 - 1.3 mg/dL [facility] Ethanol [Mass/Vol] 414 mg/dL Invalid Interpretation Code <=7mg/dL [facility] Comment on above: Result Comment: Crit ical Result verified by repeat analysis\Critical Result S_ETOH:414.0 Called to [facility] AT by CHELLY ROBLES And Read Back For Confirmation at: 04/03/2022 21:01:59 GFR/1.73 sq M.predicted among blacks MDRD (S/P/Bld) [Vol rate/Area] mL/min/1.73 m2 Normal >=59mL/min/ 1.73 m2 [facility] [place] GFR/1.73 sq M.predicted among non-blacks MDRD (S/P/Bld) [Vol rate/Area] mL/min/1.73 m2 Normal >=59mL/min/ 1.73 m2 [facility] [place] S Globulin (S) [Mass/Vol] 4.3 g/dL High 1.4 - 4.0 gm/dL [facility] Glucose [Mass/Vol] 81 mg/dL Normal 55 - 199 mg/dL [facility] Lipase [Catalytic activity/Vol] 60 U/L High 13 - 58 unit/L [facility] Potassium [Moles/Vol] 3.5 mmol/L Normal 3.5 - 5.3 mmol/L [facility] Protein [Mass/Vol] 7.6 g/dL Normal 6.0 - 7.8 gm/dL [facility] Troponin I.cardiac [Mass/Vol] 6.00 pg/mL Low 15.90 - 38.40 pg/mL [facility] Urea nitrogen [Mass/Vol] mg/dL Normal 5 - 21 mg/dL [facility] Urea nitrogen/Creatinine [Mass ratio] Unable to Calculate Invalid Interpretation Code 10 - 20 [facility] COAGULATIONOrdered By: Bridget Smiley on 04-03-2022 aPTT Coag (PPP) [Time] 33.3 s Normal 25.1 - 36.5 second(s) [facility] Auto [facility] INR Coag (PPP) [Relative time] 1.0 {INR} Invalid Interpretation Code [facility] PT Coag (PPP) [Time] 10.8 s Normal 9.4 - 1 2.5 second(s) [facility] HEMATOLOGYOrdered By: SYSTEM SYSTEM on 04-03-2022 Basophils/100 WBC (Bld) 0.4 % Normal 0.0 - 2.0 % [facility] Basophils/Leukocytes Auto (Bld) [Pure # fraction] 0.0 E9/L Normal 0.0 - 0.2 E9/L [facility] Eosinophils/100 WBC (Bld) 5.1 % Normal 0.0 - 8.0 % [facility] Eosinophils/Leukocytes Auto (Bld) [Pure # fraction] 0.2 E9/L Normal 0.0 - 0.5 E9/L [facility] Lymphocytes/100 WBC (Bld) 23.1 % Normal 14.0 - 50.0 % [facility] Lymphocytes/Leukocytes Auto (Bld) [Pure # fraction] 0.8 E9/L Low 1.0 - 4.0 E9/L [facility] Monocytes/100 WBC (Bld) 20.4 % High 4.0 - 14.0 % [facility] Monocytes/Leukocytes Auto (Bld) [Pure # fraction] 0.7 E9/L Normal 0.2 - 1.0 E9/L [facility] Neutrophils/100 WBC (Bld) 51.0 % Normal 36.0 - 75.0 % [facility] Neutrophils/Leukocytes Auto (Bld) [Pure # fraction] 1.7 E9/L Low 2.0 - 7.5 E9/L [facility] HEMATOLOGYOrdered By: Emperatriz Gore on 04-03-2022 Erythrocyte distribution width (RBC) [Ratio] 13.3 % Normal 10.9 - 14.2 % [facility] Hematocrit (Bld) [Volume fraction] 38.1 % Normal 37.7 - 49.0 % [facility] Hemoglobin (Bld) [Mass/Vol] 12.9 g/dL Low 13.5 - 17.5 gm/dL [facility] MCH (RBC) [Entitic mass] 33.4 pg Normal 27.0 - 34.0 pg [facility] MCHC (RBC) [Mass/Vol] 33.9 g/dL Normal 31.4 - 36.0 gm/dL [facility] MCV (RBC) [Entitic vol] 98.5 fL Normal 80.0 - 100.0 fL [facility] Platelet mean volume (Bld) [Entitic vol] 7.3 fL Normal 6.4 - 10.8 fL [facility] Platelets (Bld) [#/Vol] 110.0 E9/L Low 150. 0 - 500.0 E9/L [facility] RBC (Bld) [#/Vol] 3.9 E12/L Low 4.3 - 5.9 E12/L [facility] WBC corrected for nucl RBC Auto (Bld) [#/Vol] 3.3 E9/L Low 4.0 - 11.0 E9/L [facility] Comment on above: Result Comment: Slid e reviewed by AD. URINALYSISOrdered By: Bridget jenkins on 04-03-2022 Bilirubin Ql (U) Negative (04/03/22 8:55 PM) Normal Negative [facility]A Auto SS Clarity (U) Clear (04/03/22 8:55 PM) Normal Clear [facility] Auto SS Color (U) Straw *ABN* (04/03/22 8:55 PM) Invalid Interpretation Code Yellow [facility] Auto SS Crystals LM Ql (Urine sed) Present (04/03/22 8:55 PM) Normal [facility]A Auto SS Epithelial cells.squamous LM.HPF (Urine sed) [#/Area] 0-2 /HPF Normal 0-2/HPF [facility] UA Aut o SS Glucose Test strip (U) [Mass/Vol] Negative (04/03/22 8:55 PM) Normal Negative [facility]A Auto SS Hemoglobin Ql (U) Negative (04/03/22 8:55 PM) Normal Negative [facility] Auto SS Ketones (U) [Mass/Vol] Negative (04/03/22 8:55 PM) Normal Negative [facility] UA Auto SS [place].plasma/[place]. RBC (Bld) [Mass ratio] 0-3 /HPF Normal 0-3/HPF [facility] UA A uto SS Nitrite Ql (U) Negative (04/03/22 8:55 PM) Normal Negative [facility]A Auto SS pH (U) 6.5 *NA* (04/03/22 8:55 PM) Invalid Interpretation Code 5.0 - 9.0 [facility]A Auto SS Protein (U) [Mass/Vol] Negative (04/03/22 8:55 PM) Normal Negative [facility] UA Auto SS Specific gravity (U) [Rel density] <=1.005 *NA* (04/03/22 8:55 PM) Invalid Interpretation Code 1.005 - 1.030 [facility]A Auto SS UA Spec Desc Clean Catch (04/03/22 8:55 PM) Normal [facility] UA Auto SS Urobilinogen Qn (U) [id number] {Klarissa'U}/dL Normal 0.0 - 1.0 EU/dL [facility]A Auto SS WBC Auto Ql (U) Negative (04/03/22 8:55 PM) Normal Negative [facility] UA Auto SS WBC LM.HPF (Urine sed) [#/Area] 0-5 /HPF Normal 0-5/HPF [facility] UA Auto SS CHEMISTRYOrdered By: SYSTEM SYSTEM on 01-18-2022 Albumin [Mass/Vol] 3.7 g/dL Normal 3.3 - 5.0 gm/dL [facility] Albumin/Globulin [Mass ratio] 0.8 {ratio} Low 1.1 - 2.2 [facility] ALP [Catalytic activity/Vol] 74 [iU]/d Normal 21 - 98 Int._Unit/L [facility] ALT No additional P-5'-P [Catalytic activity/Vol] 13 [iU]/d Normal 6 - 46 Int._Unit/L [facility] Anion gap [Moles/Vol] 13 mmol/L Normal 6 - 16 mEq/L [facility] AST [Catalytic activity/Vol] 24 [iU]/d Normal 5 - 43 Int._Unit/L [facility] Bilirubin [Mass/Vol] 0.9 mg/dL Normal 0.0 - 1 .1 mg/dL [facility] Calcium [Mass/Vol] 9.9 mg/dL Normal 8.9 - 11. 1 mg/dL [facility] Chloride [Moles/Vol] 94 mmol/L Low 101 - 1 11 mmol/L [facility] CO2 [Moles/Vol] 29 mmol/L Normal 21 - 31 mmol/L [facility] Creatinine [Mass/Vol] 0.8 mg/dL Normal 0.5 - 1.3 mg/dL [facility] GFR/1.73 sq M.predicted among blacks MDRD (S/P/Bld) [Vol rate/Area] mL/min/1.73 m2 Normal >=59mL/min/ 1.73 m2 [facility] S GFR/1.73 sq M.predicted among non-blacks MDRD (S/P/Bld) [Vol rate/Area] mL/min/1.73 m2 Normal >=59mL/min/ 1.73 m2 [facility] S Globulin (S) [Mass/Vol] 4.5 g/dL High 1.4 - 4.0 gm/dL [facility] Glucose [Mass/Vol] 87 mg/dL Normal 55 - 199 mg/dL [facility] Potassium [Moles/Vol] 4.8 mmol/L Normal 3.5 - 5.3 mmol/L [facility] Protein [Mass/Vol] 8.2 g/dL High 6.0 - 7.8 gm/dL [facility] Sodium [Moles/Vol] 131 mmol/L Low 135 - 145 mmol/L [facility] Urea nitrogen [Mass/Vol] 10 mg/dL Normal 5 - 21 mg/dL [facility] Urea nitrogen/Creatinine [Mass ratio] 12 mg/mg Normal 10 - 20 [facility] HEMATOLOGYOrdered By: SYSTEM SYSTEM on 01-18-2022 Basophils/100 WBC (Bld) 1.0 % Normal 0.0 - 2.0 % [facility] Basophils/Leukocytes Auto (Bld) [Pure # fraction] 0.1 E9/L Normal 0.0 - 0.2 E9/L [facility] Eosinophils/100 WBC (Bld) 4.5 % Normal 0.0 - 8.0 % [facility] Eosinophils/Leukocytes Auto (Bld) [Pure # fraction] 0.2 E9/L Normal 0.0 - 0.5 E9/L [facility] Lymphocytes/100 WBC (Bld) 16.3 % Normal 14.0 - 50.0 % [facility] Lymphocytes/Leukocytes Auto (Bld) [Pure # fraction] 0.9 E9/L Low 1.0 - 4.0 E9/L [facility] Monocytes/100 WBC (Bld) 14.4 % High 4.0 - 14.0 % [facility] Monocytes/Leukocytes Auto (Bld) [Pure # fraction] 0.8 E9/L Normal 0.2 - 1.0 E9/L [facility] Neutrophils/100 WBC (Bld) 63.8 % Normal 36.0 - 75.0 % [facility] Neutrophils/Leukocytes Auto (Bld) [Pure # fraction] 3.4 E9/L Normal 2.0 - 7.5 E9/L [facility] HEMATOLOGYOrdered By: Alliso n Bao on 01-18-2022 Erythrocyte distribution width (RBC) [Ratio] 14.2 % Normal 10.9 - 14.2 % [facility] Hematocrit (Bld) [Volume fraction] 41.4 % Normal 37.7 - 49.0 % [facility] Hemoglobin (Bld) [Mass/Vol] 14.0 g/dL Normal 13.5 - 17.5 gm/dL [facility] MCH (RBC) [Entitic mass] 32.5 pg Normal 27.0 - 34.0 pg [facility] MCHC (RBC) [Mass/Vol] 33.8 g/dL Normal 31.4 - 36.0 gm/dL [facility] MCV (RBC) [Entitic vol] 96.1 fL Normal 80.0 - 100.0 fL [facility] Platelet mean volume (Bld) [Entitic vol] 9.3 fL Normal 6.4 - 10.8 fL [facility] Platelets (Bld) [#/Vol] 171.0 E9/L Normal 150. 0 - 500.0 E9/L [facility] RBC (Bld) [#/Vol] 4.3 E12/L Normal 4.3 - 5.9 E12/L [facility] WBC corrected for nucl RBC Auto (Bld) [#/Vol] 5.3 E9/L Normal 4.0 - 11.0 E9/L [facility] CHEMISTRYOrdered By: SYSTEM SYSTEM on 2021 Anion gap [Moles/Vol] 11 mmol/L Normal 6 - 16 mEq/L [facility] Chloride [Moles/Vol] 103 mmol/L Normal 101 - 1 11 mmol/L [facility] CO2 [Moles/Vol] 26 mmol/L Normal 21 - 31 mmol/L [facility] Magnesium [Mass/Vol] 1.3 mg/dL Normal 1.3 - 2 .4 mg/dL [facility] Potassium [Moles/Vol] 3.5 mmol/L Normal 3.5 - 5.3 mmol/L [facility] Sodium [Moles/Vol] 136 mmol/L Normal 135 - 145 mmol/L [facility] MICRO OTHER TESTSOrdered By: Ruth Ann Case on 2021 Rapid COV Int NEG [facility] [place] (12/18/21 3:21 PM) [place] [facility] [place] Int [place] Ct[place] (12/18/21 3:21 PM) [place] [facility] [place] SARS-CoV+SARS-CoV-2 (COVID-19) Ag IA.rapid Ql (Resp) Not Detected (12/18/21 3:21 PM) Normal Not Detected [facility] [place] CHEMISTRYOrdered By: SYSTEM SYSTEM on 12-15-2021 Anion gap [Moles/Vol] 13 mmol/L Normal 6 - 16 mEq/L [facility] Calcium [Mass/Vol] 8.0 mg/dL Low 8.9 - 11. 1 mg/dL [facility] Chloride [Moles/Vol] 101 mmol/L Normal 101 - 1 11 mmol/L [facility] CO2 [Moles/Vol] 29 mmol/L Normal 21 - 31 mmol/L [facility] Creatinine [Mass/Vol] 0.6 mg/dL Normal 0.5 - 1.3 mg/dL [facility] GFR/1.73 sq M.predicted among blacks MDRD (S/P/Bld) [Vol rate/Area] mL/min/1.73 m2 Normal >=59mL/min/ 1.73 m2 [facility] S GFR/1.73 sq M.predicted among non-blacks MDRD (S/P/Bld) [Vol rate/Area] mL/min/1.73 m2 Normal >=59mL/min/ 1.73 m2 [facility] [place] Glucose [Mass/Vol] 80 mg/dL Normal 55 - 199 mg/dL [facility] Magnesium [Mass/Vol] 1.4 mg/dL Normal 1.3 - 2 .4 mg/dL [facility] Potassium [Moles/Vol] 3.9 mmol/L Normal 3.5 - 5.3 mmol/L [facility] Sodium [Moles/Vol] 139 mmol/L Normal 135 - 145 mmol/L [facility] Urea nitrogen [Mass/Vol] mg/dL Normal 5 - 21 mg/dL [facility] Urea nitrogen/Creatinine [Mass ratio] Unable to Calculate Invalid Interpretation Code 10 - 20 [facility] Amphetamines Screen method >1000 ng/mL Ql (U) Negative (12/15/21 12:28 AM) Normal Negative [facility] Barbiturates Screen Ql (U) Negative (12/15/21 12:28 AM) Normal Negative [facility] Benzodiazepines Ql (U) Negative (12/15/21 12:28 AM) Normal Negative [facility] Cocaine Ql (U) Negative (12/15/21 12:28 AM) Normal Negative [facility] Opiates Screen Ql (U) Negative (12/15/21 12:28 AM) Normal Negative [facility] Phencyclidine Screen method >25 ng/mL Ql (U) Negative (12/15/21 12:28 AM) Normal Negative [facility] Tetrahydrocannabinol Screen method >50 ng/mL Ql (U) Negative (12/15/21 12:28 AM) Normal Negative [facility] URINALYSISOrdered By: Maria Teresa Medel on 12-15-2021 Bilirubin Ql (U) Negative (12/15/21 12:28 AM) Normal Negative [facility] Auto SS Clarity (U) Clear (12/15/21 12:28 AM) Normal Clear [facility] Auto SS Color (U) Yellow (12/15/21 12:28 AM) Normal Yellow [facility] Auto SS Epithelial cells.squamous LM.HPF (Urine sed) [#/Area] 0-2 /HPF Normal 0-2/HPF [facility] Aut o SS Glucose Test strip (U) [Mass/Vol] Negative (12/15/21 12:28 AM) Normal Negative [facility] Auto SS Hemoglobin Ql (U) Negative (12/15/21 12:28 AM) Normal Negative [facility] Auto SS Ketones (U) [Mass/Vol] Negative (12/15/21 12:28 AM) Normal Negative [facility] Auto SS [place].plasma/[place]. RBC (Bld) [Mass ratio] 0-3 /HPF Normal 0-3/HPF [facility] A uto SS Nitrite Ql (U) Negative (12/15/21 12:28 AM) Normal Negative [facility] Auto SS pH (U) 6.0 *NA* (12/15/21 12:28 AM) Invalid Interpretation Code 5.0 - 9.0 [facility] Protein (U) [Mass/Vol] Negative (12/15/21 12:28 AM) Normal Negative [facility] Auto SS Specific gravity (U) [Rel density] <=1.005 *NA* (12/15/21 12:28 AM) Invalid Interpretation Code 1.005 - 1.030 [facility] UA Spec Desc Clean Catch (12/15/21 12:28 AM) Normal [facility] Auto SS Urobilinogen Qn (U) [id number] {Klarissa'U}/dL Normal 0.0 - 1.0 EU/dL [facility] SS WBC Auto Ql (U) Negative (12/15/21 12:28 AM) Normal Negative [facility] Auto SS WBC LM.HPF (Urine sed) [#/Area] 0-5 /HPF Normal 0-5/HPF [facility] SS BLOOD BANKOrdered By: Barbara iverson on 12-14-2021 ABO/Rh Interp Positive Invalid Interpretation [place] [facility] [place] Gel Interp Negative (12/14/21 11:18 PM) Normal [facility] [place] CHEMISTRYOrdered By: SYSTEM SYSTEM on 12-14-2021 Albumin [Mass/Vol] 3.1 g/dL Low 3.3 - 5.0 gm/dL [facility] Albumin/Globulin [Mass ratio] 0.8 {ratio} Low 1.1 - 2.2 [facility] ALP [Catalytic activity/Vol] 87 [iU]/d Normal 21 - 98 Int._Unit/L [facility] ALT No additional P-5'-P [Catalytic activity/Vol] 23 [iU]/d Normal 6 - 46 Int._Unit/L [facility] Anion gap [Moles/Vol] 14 mmol/L Normal 6 - 16 mEq/L [facility] AST [Catalytic activity/Vol] 47 [iU]/d High 5 - 43 Int._Unit/L [facility] Bilirubin [Mass/Vol] 0.5 mg/dL Normal 0.0 - 1 .1 mg/dL [facility] Bilirubin.direct [Mass/Vol] 0.1 mg/dL Normal 0.1 - 0.4 mg/dL [facility] Bilirubin.indirect [Mass or moles/Vol] 0.4 mg/dL Normal 0.1 - 0.9 mg/dL [facility] Calcium [Mass/Vol] 8.2 mg/dL Low 8.9 - 11. 1 mg/dL [facility] Chloride [Moles/Vol] 96 mmol/L Low 101 - 1 11 mmol/L [facility] CK [Catalytic activity/Vol] 48 [iU]/d Normal 14 - 261 Int._Unit/L [facility] CO2 [Moles/Vol] 26 mmol/L Normal 21 - 31 mmol/L [facility] Creatinine [Mass/Vol] 0.6 mg/dL Normal 0.5 - 1.3 mg/dL [facility] Ethanol [Mass/Vol] 433 mg/dL Invalid Interpretation Code <=7mg/dL [facility] Comment on above: Result Comment: Crit ical Result verified by repeat analysis\Critical Result S_ETOH:433.0 Called to JOSEPH JARQUIN by MARIA TERESA Martin And Read Back For Confirmation at: 12/15/2021 00:07:43 GFR/1.73 sq M.predicted among blacks MDRD (S/P/Bld) [Vol rate/Area] mL/min/1.73 m2 Normal >=59mL/min/ 1.73 m2 [facility] S GFR/1.73 sq M.predicted among non-blacks MDRD (S/P/Bld) [Vol rate/Area] mL/min/1.73 m2 Normal >=59mL/min/ 1.73 m2 [facility] Globulin (S) [Mass/Vol] 3.9 g/dL Normal 1.4 - 4.0 gm/dL [facility] Glucose [Mass/Vol] 79 mg/dL Normal 55 - 199 mg/dL [facility] Lactate [Mass/Vol] 1.8 mmol/L Normal 0.5 - 2.2 mmol/L [facility] Lipase [Catalytic activity/Vol] 47 U/L Normal 13 - 58 unit/L [facility] Magnesium [Mass/Vol] 1.5 mg/dL Normal 1.3 - 2 .4 mg/dL [facility] Myoglobin [Mass/Vol] 28 ng/mL Normal <=69ng/mL [facility] Protein [Mass/Vol] 7.0 g/dL Normal 6.0 - 7.8 gm/dL [facility] Sodium [Moles/Vol] 133 mmol/L Low 135 - 145 mmol/L [facility] Troponin I.cardiac [Mass/Vol] 8.10 pg/mL Low 15.90 - 38.40 pg/mL [facility] Urea nitrogen [Mass/Vol] mg/dL Normal 5 - 21 mg/dL [facility] Urea nitrogen/Creatinine [Mass ratio] Unable to Calculate Invalid Interpretation Code 10 - 20 [facility] CHEMISTRYOrdered By: Maria Teresa jolly on 12-14-2021 Potassium [Moles/Vol] 3.1 mmol/L Low 3.5 - 5.3 mmol/L [facility] COAGULATIONOrdered By: Maria Teresa Medel on 12-14-2021 aPTT Coag (PPP) [Time] 35.9 s Normal 25.1 - 36.5 second(s) [facility] INR Coag (PPP) [Relative time] 1.0 {INR} Invalid Interpretation Code [facility] PT Coag (PPP) [Time] 11.4 s Normal 10.2 - 12.9 second(s) [facility] HEMATOLOGYOrdered By: SYSTEM SYSTEM on 12-14-2021 Basophils/100 WBC (Bld) 3.7 % High 0.0 - 2.0 % [facility] Basophils/Leukocytes Auto (Bld) [Pure # fraction] 0.1 E9/L Normal 0.0 - 0.2 E9/L [facility] Eosinophils/100 WBC (Bld) 5.5 % Normal 0.0 - 8.0 % [facility] Eosinophils/Leukocytes Auto (Bld) [Pure # fraction] 0.1 E9/L Normal 0.0 - 0.5 E9/L [facility] Lymphocytes/100 WBC (Bld) 39.8 % Normal 14.0 - 50.0 % [facility] Lymphocytes/Leukocytes Auto (Bld) [Pure # fraction] 0.8 E9/L Low 1.0 - 4.0 E9/L [facility] Monocytes/100 WBC (Bld) 18.1 % High 4.0 - 14.0 % [facility] Monocytes/Leukocytes Auto (Bld) [Pure # fraction] 0.4 E9/L Normal 0.2 - 1.0 E9/L [facility] Neutrophils/100 WBC (Bld) 32.9 % Low 36.0 - 75.0 % [facility] Neutrophils/Leukocytes Auto (Bld) [Pure # fraction] 0.7 E9/L Low 2.0 - 7.5 E9/L [facility] HEMATOLOGYOrdered By: Barbara iverson on 12-14-2021 Erythrocyte distribution width (RBC) [Ratio] 16.1 % High 10.9 - 14.2 % [facility] Hematocrit (Bld) [Volume fraction] 39.2 % Normal 37.7 - 49.0 % [facility] Hemoglobin (Bld) [Mass/Vol] 13.7 g/dL Normal 13.5 - 17.5 gm/dL [facility] MCH (RBC) [Entitic mass] 34.1 pg High 27.0 - 34.0 pg [facility] MCHC (RBC) [Mass/Vol] 34.9 g/dL Normal 31.4 - 36.0 gm/dL [facility] MCV (RBC) [Entitic vol] 97.7 fL Normal 80.0 - 100.0 fL [facility] Platelet mean volume (Bld) [Entitic vol] 6.8 fL Normal 6.4 - 10.8 fL [facility] Platelets (Bld) [#/Vol] 122.0 E9/L Low 150. 0 - 500.0 E9/L [facility] RBC (Bld) [#/Vol] 4.0 E12/L Low 4.3 - 5.9 E12/L [facility] WBC corrected for nucl RBC Auto (Bld) [#/Vol] 2.1 E9/L Low 4.0 - 11.0 E9/L [facility] Comment on above: Result Comment: Slid e reviewed by jlp. CHEMISTRYOrdered By: SYSTEM SYSTEM on 12-12-2021 Troponin I.cardiac [Mass/Vol] 8.40 pg/mL Low 15.90 - 38.40 pg/mL [facility] Albumin [Mass/Vol] 3.3 g/dL Normal 3.3 - 5.0 gm/dL [facility] Albumin/Globulin [Mass ratio] 0.8 {ratio} Low 1.1 - 2.2 [facility] ALP [Catalytic activity/Vol] 76 [iU]/d Normal 21 - 98 Int._Unit/L [facility] ALT No additional P-5'-P [Catalytic activity/Vol] 25 [iU]/d Normal 6 - 46 Int._Unit/L [facility] Comment on above: Result Comment: 'Spe cimen hemolyzed, result may be affected. Recommend redraw.' Anion gap [Moles/Vol] 14 mmol/L Normal 6 - 16 mEq/L [facility] AST [Catalytic activity/Vol] 65 [iU]/d High 5 - 43 Int._Unit/L [facility] Comment on above: Result Comment: 'Spe cimen hemolyzed, result may be affected. Recommend redraw.' Bilirubin [Mass/Vol] 0.8 mg/dL Normal 0.0 - 1 .1 mg/dL [facility] Comment on above: Result Comment: 'Spe cimen hemolyzed, result may be affected. Redraw is recommended.' Bilirubin.direct [Mass/Vol] 0.3 mg/dL Normal 0.1 - 0.4 mg/dL [facility] Comment on above: Result Comment: 'Spe cimen hemolyzed, result may be affected. Redraw recommended.' Bilirubin.indirect [Mass or moles/Vol] 0.5 mg/dL Normal 0.1 - 0.9 mg/dL [facility] Calcium [Mass/Vol] 8.4 mg/dL Low 8.9 - 11. 1 mg/dL [facility] Chloride [Moles/Vol] 94 mmol/L Low 101 - 1 11 mmol/L [facility] CO2 [Moles/Vol] 26 mmol/L Normal 21 - 31 mmol/L [facility] Creatinine [Mass/Vol] 0.6 mg/dL Normal 0.5 - 1.3 mg/dL [facility] Ethanol [Mass/Vol] 401 mg/dL Invalid Interpretation Code <=7mg/dL [facility] Comment on above: Result Comment: Crit ical Result verified by repeat analysis\Critical Result S_ETOH:401.0 Called to MOODY AT by MARIA TERESA Martin And Read Back For Confirmation at: 12/12/2021 00:48:18 GFR/1.73 sq M.predicted among blacks MDRD (S/P/Bld) [Vol rate/Area] mL/min/1.73 m2 Normal >=59mL/min/ 1.73 m2 [facility] [place] GFR/1.73 sq M.predicted among non-blacks MDRD (S/P/Bld) [Vol rate/Area] mL/min/1.73 m2 Normal >=59mL/min/ 1.73 m2 [facility] [place] S Globulin (S) [Mass/Vol] 4.1 g/dL High 1.4 - 4.0 gm/dL [facility] Glucose [Mass/Vol] 91 mg/dL Normal 55 - 199 mg/dL [facility] Potassium [Moles/Vol] 3.9 mmol/L Normal 3.5 - 5.3 mmol/L [facility] Comment on above: Result Comment: 'Spe cimen hemolyzed. Result may be affected. Redraw is recommended.' Protein [Mass/Vol] 7.4 g/dL Normal 6.0 - 7.8 gm/dL [facility] Sodium [Moles/Vol] 130 mmol/L Low 135 - 145 mmol/L [facility] Troponin I.cardiac [Mass/Vol] 6.60 pg/mL Low 15.90 - 38.40 pg/mL [facility] Urea nitrogen [Mass/Vol] mg/dL Normal 5 - 21 mg/dL [facility] Urea nitrogen/Creatinine [Mass ratio] Unable to Calculate Invalid Interpretation Code 10 - 20 [facility] CHEMISTRYOrdered By: Maria Teresa jolly on 12-12-2021 Natriuretic peptide B (Bld) [Mass/Vol] 24 pg/mL Normal 5 - 80 pg/mL [facility] COAGULATIONOrdered By: Maria Teresa Medel on 12-12-2021 aPTT Coag (PPP) [Time] 32.5 s Normal 25.1 - 36.5 second(s) [facility] INR Coag (PPP) [Relative time] 1.0 {INR} Invalid Interpretation Code [facility] PT Coag (PPP) [Time] 11.3 s Normal 10.2 - 12.9 second(s) [facility] HEMATOLOGYOrdered By: SYSTEM SYSTEM on 12-12-2021 Basophils/100 WBC (Bld) 0.6 % Normal 0.0 - 2.0 % [facility] Basophils/Leukocytes Auto (Bld) [Pure # fraction] 0.0 E9/L Normal 0.0 - 0.2 E9/L [facility] Eosinophils/100 WBC (Bld) 8.0 % Normal 0.0 - 8.0 % [facility] Eosinophils/Leukocytes Auto (Bld) [Pure # fraction] 0.2 E9/L Normal 0.0 - 0.5 E9/L [facility] Lymphocytes/100 WBC (Bld) 30.9 % Normal 14.0 - 50.0 % [facility] Lymphocytes/Leukocytes Auto (Bld) [Pure # fraction] 0.9 E9/L Low 1.0 - 4.0 E9/L [facility] Monocytes/100 WBC (Bld) 20.7 % High 4.0 - 14.0 % [facility] Monocytes/Leukocytes Auto (Bld) [Pure # fraction] 0.6 E9/L Normal 0.2 - 1.0 E9/L [facility] Neutrophils/100 WBC (Bld) 39.8 % Normal 36.0 - 75.0 % [facility] Neutrophils/Leukocytes Auto (Bld) [Pure # fraction] 1.2 E9/L Low 2.0 - 7.5 E9/L [facility] HEMATOLOGYOrdered By: Maria Teresa Medel on 12-12-2021 Erythrocyte distribution width (RBC) [Ratio] 16.4 % High 10.9 - 14.2 % [facility] Hematocrit (Bld) [Volume fraction] 40.6 % Normal 37.7 - 49.0 % [facility] Hemoglobin (Bld) [Mass/Vol] 13.5 g/dL Normal 13.5 - 17.5 gm/dL [facility] MCH (RBC) [Entitic mass] 33.1 pg Normal 27.0 - 34.0 pg [facility] MCHC (RBC) [Mass/Vol] 33.3 g/dL Normal 31.4 - 36.0 gm/dL [facility] MCV (RBC) [Entitic vol] 99.6 fL Normal 80.0 - 100.0 fL [facility] Platelet mean volume (Bld) [Entitic vol] 7.2 fL Normal 6.4 - 10.8 fL [facility] Platelets (Bld) [#/Vol] 145.0 E9/L Low 150. 0 - 500.0 E9/L [facility] RBC (Bld) [#/Vol] 4.1 E12/L Low 4.3 - 5.9 E12/L [facility] WBC corrected for nucl RBC Auto (Bld) [#/Vol] 2.9 E9/L Low 4.0 - 11.0 E9/L [facility] URINALYSISOrdered By: Maria Teresa Medel on 12-12-2021 Bilirubin Ql (U) Negative (12/12/21 12:29 AM) Normal Negative [facility] Auto SS Clarity (U) Clear (12/12/21 12:29 AM) Normal Clear [facility] Auto SS Color (U) Yellow (12/12/21 12:29 AM) Normal Yellow [facility] Auto SS Epithelial cells.squamous LM.HPF (Urine sed) [#/Area] 0-2 /HPF Normal 0-2/HPF [facility] Aut o SS Glucose Test strip (U) [Mass/Vol] Negative (12/12/21 12:29 AM) Normal Negative [facility] Auto SS Hemoglobin Ql (U) Negative (12/12/21 12:29 AM) Normal Negative [facility] Auto SS Ketones (U) [Mass/Vol] Negative (12/12/21 12:29 AM) Normal Negative [facility] Auto SS [place].plasma/[place]. RBC (Bld) [Mass ratio] 0-3 /HPF Normal 0-3/HPF [facility] A uto SS Nitrite Ql (U) Negative (12/12/21 12:29 AM) Normal Negative [facility] Auto SS pH (U) 6.5 *NA* (12/12/21 12:29 AM) Invalid Interpretation Code 5.0 - 9.0 [facility] Auto SS Protein (U) [Mass/Vol] Negative (12/12/21 12:29 AM) Normal Negative [facility] Auto SS Specific gravity (U) [Rel density] <=1.005 *NA* (12/12/21 12:29 AM) Invalid Interpretation Code 1.005 - 1.030 [facility] Auto SS UA Spec Desc Clean Catch (12/12/21 12:29 AM) Normal [facility] Auto SS Urobilinogen Qn (U) 0.4409251 {Klarissa'U}/dL Normal 0.0 - 1.0 EU/dL [facility] Auto SS WBC Auto Ql (U) Negative (12/12/21 12:29 AM) Normal Negative [facility] Auto SS WBC LM.HPF (Urine sed) [#/Area] 0-5 /HPF Normal 0-5/HPF [facility] Auto SS CHEMISTRYOrdered By: SYSTEM SYSTEM on 12-07-2021 Amphetamines Screen method >1000 ng/mL Ql (U) Negative (12/07/21 9:12 AM) Normal Negative [facility] Barbiturates Screen Ql (U) Negative (12/07/21 9:12 AM) Normal Negative [facility] Benzodiazepines Ql (U) Positive 1 *ABN* (12/07/21 9:12 AM) Invalid Interpretation Code Negative [facility] Comment on above: Result Comment: Crit ical Result verified by repeat analysis\No confirmation requested by Physican\Unconfirmed by alternate method\Critical Result UD_BENZ:POS Called to ANALILIA VERNON AT 2N by CHARLEE WALKER And Read Back For Confirmation at: 12/07/2021 11:49:12 Cocaine Ql (U) Negative (12/07/21 9:12 AM) Normal Negative [facility] Opiates Screen Ql (U) Negative (12/07/21 9:12 AM) Normal Negative [facility] Phencyclidine Screen method >25 ng/mL Ql (U) Negative (12/07/21 9:12 AM) Normal Negative [facility] Tetrahydrocannabinol Screen method >50 ng/mL Ql (U) Negative (12/07/21 9:12 AM) Normal Negative [facility] GFR/1.73 sq M.predicted among blacks MDRD (S/P/Bld) [Vol rate/Area] mL/min/1.73 m2 Normal >=59mL/min/ 1.73 m2 [facility] S GFR/1.73 sq M.predicted among non-blacks MDRD (S/P/Bld) [Vol rate/Area] mL/min/1.73 m2 Normal >=59mL/min/ 1.73 m2 [facility] [place] S CHEMISTRYOrdered By: Charlee Walker on 12-07-2021 Anion gap [Moles/Vol] 9 mmol/L Normal 6 - 16 mEq/L [facility] Calcium [Mass/Vol] 8.3 mg/dL Low 8.9 - 11. 1 mg/dL [facility] Chloride [Moles/Vol] 103 mmol/L Normal 101 - 1 11 mmol/L [facility] Cholesterol [Mass/Vol] 143 mg/dL Normal 120 - 200 mg/dL [facility] Cholesterol in HDL [Mass/Vol] 85 mg/dL Invalid Interpretation Code [facility] Cholesterol in LDL [Mass/Vol] 34 mg/dL Normal <=129mg/dL [facility] Cholesterol in VLDL [Mass/Vol] 10 mg/dL Normal 7 - 40 mg/dL [facility] CO2 [Moles/Vol] 29 mmol/L Normal 21 - 31 mmol/L [facility] Creatinine [Mass/Vol] 0.7 mg/dL Normal 0.5 - 1.3 mg/dL [facility] Glucose [Mass/Vol] 82 mg/dL Normal 55 - 199 mg/dL [facility] Potassium [Moles/Vol] 3.6 mmol/L Normal 3.5 - 5.3 mmol/L [facility] Sodium [Moles/Vol] 137 mmol/L Normal 135 - 145 mmol/L [facility] Triglyceride [Mass/Vol] 52 mg/dL Normal <=149mg/dL [facility] Urea nitrogen [Mass/Vol] 7 mg/dL Normal 5 - 21 mg/dL [facility] Urea nitrogen/Creatinine [Mass ratio] 10 mg/mg Normal 10 - 20 [facility] [place] [facility] URINALYSISOrdered By: Victorina Douglas on 12-07-2021 Bilirubin Ql (U) 1+ *ABN* (12/07/21 9:12 AM) Invalid Interpretation Code Negative [facility] Auto SS Clarity (U) Clear (12/07/21 9:12 AM) Normal Clear [facility] Auto SS Color (U) Yellow (12/07/21 9:12 AM) Normal Yellow [facility] Auto SS Epithelial cells.squamous LM.HPF (Urine sed) [#/Area] 0-2 /HPF Normal 0-2/HPF [facility] Aut o SS Glucose Test strip (U) [Mass/Vol] Negative (12/07/21 9:12 AM) Normal Negative [facility] Auto SS Hemoglobin Ql (U) Negative (12/07/21 9:12 AM) Normal Negative [facility] Auto SS Ketones (U) [Mass/Vol] Trace *NA* (12/07/21 9:12 AM) Invalid Interpretation Code Negative [facility] Auto SS [place].plasma/[place]. RBC (Bld) [Mass ratio] 0-3 /HPF Normal 0-3/HPF [facility] [place] [facility] A uto SS Mucus Ql (Urine sed) 1+ (12/07/21 9:12 AM) Normal [facility] Auto SS Nitrite Ql (U) Negative (12/07/21 9:12 AM) Normal Negative [facility] Auto SS pH (U) 6.5 *NA* (12/07/21 9:12 AM) Invalid Interpretation Code 5.0 - 9.0 [facility] Auto SS Protein (U) [Mass/Vol] Negative (12/07/21 9:12 AM) Normal Negative [facility] Auto SS Specific gravity (U) [Rel density] 1.025 *NA* (12/07/21 9:12 AM) Invalid Interpretation Code 1.005 - 1.030 [facility] Auto SS UA Spec Desc Clean Catch (12/07/21 9:12 AM) Normal [facility] Auto SS Urobilinogen Qn (U) 0.6588521 {Klarissa'U}/dL Normal 0.0 - 1.0 EU/dL [facility] Auto SS WBC Auto Ql (U) Negative (12/07/21 9:12 AM) Normal Negative [facility] Auto SS WBC LM.HPF (Urine sed) [#/Area] 0-5 /HPF Normal 0-5/HPF [facility] Auto SS CHEMISTRYOrdered By: SYSTEM SYSTEM on 12-06-2021 Phosphate [Mass/Vol] 3.3 mg/dL Normal 1.9 - 4 .6 mg/dL [facility] TSH Qn 1.25 m[IU]/L Normal 0.34 - 5.60 mcIU/mL [facility] Anion gap [Moles/Vol] 12 mmol/L Normal 6 - 16 mEq/L [facility] Calcium [Mass/Vol] 8.4 mg/dL Low 8.9 - 11. 1 mg/dL [facility] Chloride [Moles/Vol] 97 mmol/L Low 101 - 1 11 mmol/L [facility] CO2 [Moles/Vol] 26 mmol/L Normal 21 - 31 mmol/L [facility] Creatinine [Mass/Vol] 0.7 mg/dL Normal 0.5 - 1.3 mg/dL [facility] Ethanol [Mass/Vol] 309 mg/dL Invalid Interpretation Code <=7mg/dL [facility] Comment on above: Result Comment: Crit ical Result verified by repeat analysis\Critical Result S_ETOH:309.0 Called to BJORN IBANEZ AT by ZOFIA GORE And Read Back For Confirmation at: 12/06/2021 04:54:31 GFR/1.73 sq M.predicted among blacks MDRD (S/P/Bld) [Vol rate/Area] mL/min/1.73 m2 Normal >=59mL/min/ 1.73 m2 [facility] Chem S GFR/1.73 sq M.predicted among non-blacks MDRD (S/P/Bld) [Vol rate/Area] mL/min/1.73 m2 Normal >=59mL/min/ 1.73 m2 [facility] Chem S Glucose [Mass/Vol] 85 mg/dL Normal 55 - 199 mg/dL [facility] Magnesium [Mass/Vol] 1.6 mg/dL Normal 1.3 - 2 .4 mg/dL [facility] Potassium [Moles/Vol] 3.3 mmol/L Low 3.5 - 5.3 mmol/L [facility] Sodium [Moles/Vol] 132 mmol/L Low 135 - 145 mmol/L [facility] Troponin I.cardiac [Mass/Vol] 11.20 pg/mL Low 15.90 - 38.40 pg/mL [facility] Urea nitrogen [Mass/Vol] mg/dL Normal 5 - 21 mg/dL [facility] Urea nitrogen/Creatinine [Mass ratio] Unable to Calculate Invalid Interpretation Code 10 - 20 [facility] CHEMISTRYOrdered By: Josue Pearson on 12-06-2021 HbA1c (Bld) [Mass fraction] see comment Invalid Interpretation Code <=5.9 [facility] Comment on above: Result Comment: dino couch to obtain results, sending to [facility] for analysis 12/06/2021 14:35:54 EDT BR HEMATOLOGYOrdered By: SYSTEM SYSTEM on 12-06-2021 Basophils/100 WBC (Bld) 1.2 % Normal 0.0 - 2.0 % [facility] Basophils/Leukocytes Auto (Bld) [Pure # fraction] 0.1 E9/L Normal 0.0 - 0.2 E9/L [facility] Eosinophils/100 WBC (Bld) 3.5 % Normal 0.0 - 8.0 % [facility] Eosinophils/Leukocytes Auto (Bld) [Pure # fraction] 0.2 E9/L Normal 0.0 - 0.5 E9/L [facility] Lymphocytes/100 WBC (Bld) 19.6 % Normal 14.0 - 50.0 % [facility] Lymphocytes/Leukocytes Auto (Bld) [Pure # fraction] 1.0 E9/L Normal 1.0 - 4.0 E9/L [facility] Monocytes/100 WBC (Bld) 12.9 % Normal 4.0 - 14.0 % [facility] Monocytes/Leukocytes Auto (Bld) [Pure # fraction] 0.7 E9/L Normal 0.2 - 1.0 E9/L [facility] Neutrophils/100 WBC (Bld) 62.8 % Normal 36.0 - 75.0 % [facility] Neutrophils/Leukocytes Auto (Bld) [Pure # fraction] 3.2 E9/L Normal 2.0 - 7.5 E9/L [facility] HEMATOLOGYOrdered By: Emperatriz Gore on 12-06-2021 Erythrocyte distribution width (RBC) [Ratio] 17.3 % High 10.9 - 14.2 % [facility] [facility] Hematocrit (Bld) [Volume fraction] 37.5 % Low 37.7 - 49.0 % [facility] Hemoglobin (Bld) [Mass/Vol] 13.0 g/dL Low 13.5 - 17.5 gm/dL [facility] MCH (RBC) [Entitic mass] 34.6 pg High 27.0 - 34.0 pg [facility] MCHC (RBC) [Mass/Vol] 34.7 g/dL Normal 31.4 - 36.0 gm/dL [facility] MCV (RBC) [Entitic vol] 99.7 fL Normal 80.0 - 100.0 fL [facility] Platelet mean volume (Bld) [Entitic vol] 7.3 fL Normal 6.4 - 10.8 fL [facility] Platelets (Bld) [#/Vol] 120.0 E9/L Low 150. 0 - 500.0 E9/L [facility] RBC (Bld) [#/Vol] 3.8 E12/L Low 4.3 - 5.9 E12/L [facility] WBC corrected for nucl RBC Auto (Bld) [#/Vol] 5.1 E9/L Normal 4.0 - 11.0 E9/L [facility] Reference Laboratory Testing Ordered By: Montserrat DomainUser on 12-06-2021 Lab Miscellaneous COMMENT Invalid Interpretation Code [facility] Comment on above: Result Comment: Test Ordered: [id number] Hemoglobin A1c Hemoglobin A1c <4.2 [L ] % Reference Range: 4.8-5.6 Verified by repeat analysis Prediabetes: 5.7 - 6.4 Diabetes: >6.4 Glycemic control for adults with diabetes: <7.0 Performed at: [address] [id number] PhD Moustapha Silva Reference Laboratory Testing Ordered By: Judy Pearson on 12-06-2021 Test Code [id number] Invalid Interpretation Code [facility] Test Name Hemoglobin A1C Invalid Interpretation Code [facility] [place] [facility] CHEMISTRYOrdered By: SYSTEM SYSTEM on 11-13-2021 Anion gap [Moles/Vol] 11 mmol/L Normal 6 - 16 mEq/L [facility] Calcium [Mass/Vol] 8.4 mg/dL Low 8.9 - 11. 1 mg/dL [facility] Chloride [Moles/Vol] 101 mmol/L Normal 101 - 1 11 mmol/L [facility] CO2 [Moles/Vol] 30 mmol/L Normal 21 - 31 mmol/L [facility] Creatinine [Mass/Vol] 0.7 mg/dL Normal 0.5 - 1.3 mg/dL [facility] GFR/1.73 sq M.predicted among blacks MDRD (S/P/Bld) [Vol rate/Area] mL/min/1.73 m2 Normal >=59mL/min/ 1.73 m2 [facility] [place] GFR/1.73 sq M.predicted among non-blacks MDRD (S/P/Bld) [Vol rate/Area] mL/min/1.73 m2 Normal >=59mL/min/ 1.73 m2 [facility] [place] Glucose [Mass/Vol] 82 mg/dL Normal 55 - 199 mg/dL [facility] Magnesium [Mass/Vol] 2.2 mg/dL Normal 1.3 - 2 .4 mg/dL [facility] Phosphate [Mass/Vol] 2.7 mg/dL Normal 1.9 - 4 .6 mg/dL [facility] Potassium [Moles/Vol] 3.4 mmol/L Low 3.5 - 5.3 mmol/L [facility] Sodium [Moles/Vol] 139 mmol/L Normal 135 - 145 mmol/L [facility] Urea nitrogen [Mass/Vol] 10 mg/dL Normal 5 - 21 mg/dL [facility] Urea nitrogen/Creatinine [Mass ratio] 14 mg/mg Normal 10 - 20 [facility] HEMATOLOGYOrdered By: SYSTEM SYSTEM on 11-13-2021 Basophils/100 WBC (Bld) 1.3 % Normal 0.0 - 2.0 % [facility] Basophils/Leukocytes Auto (Bld) [Pure # fraction] 0.0 E9/L Normal 0.0 - 0.2 E9/L [facility] Eosinophils/100 WBC (Bld) 8.9 % High 0.0 - 8.0 % [facility] Eosinophils/Leukocytes Auto (Bld) [Pure # fraction] 0.2 E9/L Normal 0.0 - 0.5 E9/L [facility] Lymphocytes/100 WBC (Bld) 21.3 % Normal 14.0 - 50.0 % [facility] Lymphocytes/Leukocytes Auto (Bld) [Pure # fraction] 0.5 E9/L Low 1.0 - 4.0 E9/L [facility] Monocytes/100 WBC (Bld) 14.3 % High 4.0 - 14.0 % [facility] Monocytes/Leukocytes Auto (Bld) [Pure # fraction] 0.4 E9/L Normal 0.2 - 1.0 E9/L [facility] Neutrophils/100 WBC (Bld) 54.2 % Normal 36.0 - 75.0 % [facility] Neutrophils/Leukocytes Auto (Bld) [Pure # fraction] 1.4 E9/L Low 2.0 - 7.5 E9/L [facility] HEMATOLOGYOrdered By: Amelia Pearson on 11-13-2021 Erythrocyte distribution width (RBC) [Ratio] 18.4 % High 10.9 - 14.2 % [facility] Hematocrit (Bld) [Volume fraction] 36.0 % Low 37.7 - 49.0 % [facility] Hemoglobin (Bld) [Mass/Vol] 12.0 g/dL Low 13.5 - 17.5 gm/dL [facility] MCH (RBC) [Entitic mass] 32.1 pg Normal 27.0 - 34.0 pg [facility] MCHC (RBC) [Mass/Vol] 33.3 g/dL Normal 31.4 - 36.0 gm/dL [facility] MCV (RBC) [Entitic vol] 96.2 fL Normal 80.0 - 100.0 fL [facility] Platelet mean volume (Bld) [Entitic vol] 7.6 fL Normal 6.4 - 10.8 fL [facility] Platelets (Bld) [#/Vol] 141.0 E9/L Low 150. 0 - 500.0 E9/L [facility] RBC (Bld) [#/Vol] 3.7 E12/L Low 4.3 - 5.9 E12/L [facility] WBC corrected for nucl RBC Auto (Bld) [#/Vol] 2.6 E9/L Low 4.0 - 11.0 E9/L [facility] CHEMISTRYOrdered By: SYSTEM SYSTEM on 11-12-2021 Anion gap [Moles/Vol] 13 mmol/L Normal 6 - 16 mEq/L [facility] Calcium [Mass/Vol] 8.3 mg/dL Low 8.9 - 11. 1 mg/dL [facility] Chloride [Moles/Vol] 106 mmol/L Normal 101 - 1 11 mmol/L [facility] CK [Catalytic activity/Vol] 35 [iU]/d Normal 14 - 261 Int._Unit/L [facility] CO2 [Moles/Vol] 26 mmol/L Normal 21 - 31 mmol/L [facility] Creatinine [Mass/Vol] 0.7 mg/dL Normal 0.5 - 1.3 mg/dL [facility] GFR/1.73 sq M.predicted among blacks MDRD (S/P/Bld) [Vol rate/Area] mL/min/1.73 m2 Normal >=59mL/min/ 1.73 m2 [facility] S GFR/1.73 sq M.predicted among non-blacks MDRD (S/P/Bld) [Vol rate/Area] mL/min/1.73 m2 Normal >=59mL/min/ 1.73 m2 [facility] [place] Glucose [Mass/Vol] 79 mg/dL Normal 55 - 199 mg/dL [facility] Magnesium [Mass/Vol] 1.4 mg/dL Normal 1.3 - 2 .4 mg/dL [facility] Phosphate [Mass/Vol] 3.1 mg/dL Normal 1.9 - 4 .6 mg/dL [facility] Potassium [Moles/Vol] 3.7 mmol/L Normal 3.5 - 5.3 mmol/L [facility] Sodium [Moles/Vol] 141 mmol/L Normal 135 - 145 mmol/L [facility] TSH Qn 0.45 m[IU]/L Normal 0.34 - 5.60 mcIU/mL [facility] Urea nitrogen [Mass/Vol] 6 mg/dL Normal 5 - 21 mg/dL [facility] Urea nitrogen/Creatinine [Mass ratio] 9 mg/mg Low 10 - 20 [facility] Amphetamines Screen method >1000 ng/mL Ql (U) Negative (11/12/21 4:09 AM) Normal Negative [facility] Barbiturates Screen Ql (U) Negative (11/12/21 4:09 AM) Normal Negative [facility] Benzodiazepines Ql (U) Negative (11/12/21 4:09 AM) Normal Negative [facility] Cocaine Ql (U) Negative (11/12/21 4:09 AM) Normal Negative [facility] Opiates Screen Ql (U) Positive 1 *ABN* (11/12/21 4:09 AM) Invalid Interpretation Code Negative [facility] Comment on above: Result Comment: Crit ical Result UD_OPIA:POS Called to BHARATI WHIPPLE AT ER by GRETA And Read Back For Confirmation at: 11/12/2021 04:51:31 Phencyclidine Screen method >25 ng/mL Ql (U) Negative (11/12/21 4:09 AM) Normal Negative [facility] Tetrahydrocannabinol Screen method >50 ng/mL Ql (U) Negative (11/12/21 4:09 AM) Normal Negative [facility] Albumin [Mass/Vol] 3.3 g/dL Normal 3.3 - 5.0 gm/dL [facility] Albumin/Globulin [Mass ratio] 0.9 {ratio} Low 1.1 - 2.2 [facility] ALP [Catalytic activity/Vol] 63 [iU]/d Normal 21 - 98 Int._Unit/L [facility] ALT No additional P-5'-P [Catalytic activity/Vol] 15 [iU]/d Normal 6 - 46 Int._Unit/L [facility] Anion gap [Moles/Vol] 10 mmol/L Normal 6 - 16 mEq/L [facility] AST [Catalytic activity/Vol] 30 [iU]/d Normal 5 - 43 Int._Unit/L [facility] Bilirubin [Mass/Vol] 0.6 mg/dL Normal 0.0 - 1 .1 mg/dL [facility] Bilirubin.direct [Mass/Vol] 0.1 mg/dL Normal 0.1 - 0.4 mg/dL [facility] Bilirubin.indirect [Mass or moles/Vol] 0.5 mg/dL Normal 0.1 - 0.9 mg/dL [facility] Calcium [Mass/Vol] 8.4 mg/dL Low 8.9 - 11. 1 mg/dL [facility] Chloride [Moles/Vol] 104 mmol/L Normal 101 - 1 11 mmol/L [facility] CO2 [Moles/Vol] 29 mmol/L Normal 21 - 31 mmol/L [facility] Creatinine [Mass/Vol] 0.7 mg/dL Normal 0.5 - 1.3 mg/dL [facility] Ethanol [Mass/Vol] 292 mg/dL Invalid Interpretation Code <=7mg/dL [facility] Comment on above: Result Comment: Crit ical Result S_ETOH:292.0 Called to JOSEPH KINGSTON AT ER by GRETA VALLES And Read Back For Confirmation at: 11/12/2021 00:53:52 GFR/1.73 sq M.predicted among blacks MDRD (S/P/Bld) [Vol rate/Area] mL/min/1.73 m2 Normal >=59mL/min/ 1.73 m2 [facility] S GFR/1.73 sq M.predicted among non-blacks MDRD (S/P/Bld) [Vol rate/Area] mL/min/1.73 m2 Normal >=59mL/min/ 1.73 m2 [facility] [place] Globulin (S) [Mass/Vol] 3.7 g/dL Normal 1.4 - 4.0 gm/dL [facility] Glucose [Mass/Vol] 89 mg/dL Normal 55 - 199 mg/dL [facility] Potassium [Moles/Vol] 3.0 mmol/L Low 3.5 - 5.3 mmol/L [facility] Protein [Mass/Vol] 7.0 g/dL Normal 6.0 - 7.8 gm/dL [facility] Sodium [Moles/Vol] 140 mmol/L Normal 135 - 145 mmol/L [facility] Troponin I.cardiac [Mass/Vol] 9.10 pg/mL Low 15.90 - 38.40 pg/mL [facility] Urea nitrogen [Mass/Vol] 5 mg/dL Normal 5 - 21 mg/dL [facility] Urea nitrogen/Creatinine [Mass ratio] 7 mg/mg Low 10 - 20 [facility] COAGULATIONOrdered By: Barbara Valles on 11-12-2021 aPTT Coag (PPP) [Time] 29.3 s Normal 25.1 - 36.5 second(s) [facility] INR Coag (PPP) [Relative time] 1.0 {INR} Invalid Interpretation Code [facility] PT Coag (PPP) [Time] 12.0 s Normal 10.2 - 12.9 second(s) [facility] HEMATOLOGYOrdered By: SYSTEM SYSTEM on 11-12-2021 Basophils/100 WBC (Bld) 2.5 % High 0.0 - 2.0 % [facility] Basophils/Leukocytes Auto (Bld) [Pure # fraction] 0.1 E9/L Normal 0.0 - 0.2 E9/L [facility] Eosinophils/100 WBC (Bld) 8.5 % High 0.0 - 8.0 % [facility] Eosinophils/Leukocytes Auto (Bld) [Pure # fraction] 0.2 E9/L Normal 0.0 - 0.5 E9/L [facility] Lymphocytes/100 WBC (Bld) 28.8 % Normal 14.0 - 50.0 % [facility] Lymphocytes/Leukocytes Auto (Bld) [Pure # fraction] 0.8 E9/L Low 1.0 - 4.0 E9/L [facility] Monocytes/100 WBC (Bld) 15.6 % High 4.0 - 14.0 % [facility] Monocytes/Leukocytes Auto (Bld) [Pure # fraction] 0.4 E9/L Normal 0.2 - 1.0 E9/L [facility] Neutrophils/100 WBC (Bld) 44.6 % Normal 36.0 - 75.0 % [facility] Neutrophils/Leukocytes Auto (Bld) [Pure # fraction] 1.3 E9/L Low 2.0 - 7.5 E9/L [facility] Basophils/100 WBC (Bld) 1.4 % Normal 0.0 - 2.0 % [facility] Basophils/Leukocytes Auto (Bld) [Pure # fraction] 0.1 E9/L Normal 0.0 - 0.2 E9/L [facility] Eosinophils/100 WBC (Bld) 4.3 % Normal 0.0 - 8.0 % [facility] Eosinophils/Leukocytes Auto (Bld) [Pure # fraction] 0.2 E9/L Normal 0.0 - 0.5 E9/L [facility] Lymphocytes/100 WBC (Bld) 22.1 % Normal 14.0 - 50.0 % [facility] Lymphocytes/Leukocytes Auto (Bld) [Pure # fraction] 0.9 E9/L Low 1.0 - 4.0 E9/L [facility] Monocytes/100 WBC (Bld) 13.3 % Normal 4.0 - 14.0 % [facility] Monocytes/Leukocytes Auto (Bld) [Pure # fraction] 0.5 E9/L Normal 0.2 - 1.0 E9/L [facility] Neutrophils/100 WBC (Bld) 58.9 % Normal 36.0 - 75.0 % [facility] Neutrophils/Leukocytes Auto (Bld) [Pure # fraction] 2.3 E9/L Normal 2.0 - 7.5 E9/L [facility] HEMATOLOGYOrdered By: Amelia Pearson on 11-12-2021 Erythrocyte distribution width (RBC) [Ratio] 18.5 % High 10.9 - 14.2 % [facility] Hematocrit (Bld) [Volume fraction] 31.6 % Low 37.7 - 49.0 % [facility] Hemoglobin (Bld) [Mass/Vol] 10.8 g/dL Low 13.5 - 17.5 gm/dL [facility] MCH (RBC) [Entitic mass] 32.5 pg Normal 27.0 - 34.0 pg [facility] MCHC (RBC) [Mass/Vol] 34.1 g/dL Normal 31.4 - 36.0 gm/dL [facility] MCV (RBC) [Entitic vol] 95.4 fL Normal 80.0 - 100.0 fL [facility] Platelet mean volume (Bld) [Entitic vol] 7.3 fL Normal 6.4 - 10.8 fL [facility] Platelets (Bld) [#/Vol] 144.0 E9/L Low 150. 0 - 500.0 E9/L [facility] RBC (Bld) [#/Vol] 3.3 E12/L Low 4.3 - 5.9 E12/L [facility] WBC corrected for nucl RBC Auto (Bld) [#/Vol] 2.8 E9/L Low 4.0 - 11.0 E9/L [facility] Comment on above: Result Comment: Slid e reviewed by BR. HEMATOLOGYOrdered By: Barbara iverson on 11-12-2021 Erythrocyte distribution width (RBC) [Ratio] 18.3 % High 10.9 - 14.2 % [facility] Hematocrit (Bld) [Volume fraction] 34.3 % Low 37.7 - 49.0 % [facility] Hemoglobin (Bld) [Mass/Vol] 11.5 g/dL Low 13.5 - 17.5 gm/dL [facility] MCH (RBC) [Entitic mass] 31.7 pg Normal 27.0 - 34.0 pg [facility] MCHC (RBC) [Mass/Vol] 33.6 g/dL Normal 31.4 - 36.0 gm/dL [facility] MCV (RBC) [Entitic vol] 94.4 fL Normal 80.0 - 100.0 fL [facility] Platelet mean volume (Bld) [Entitic vol] 7.2 fL Normal 6.4 - 10.8 fL [facility] Platelets (Bld) [#/Vol] 154.0 E9/L Normal 150. 0 - 500.0 E9/L [facility] RBC (Bld) [#/Vol] 3.6 E12/L Low 4.3 - 5.9 E12/L [facility] WBC corrected for nucl RBC Auto (Bld) [#/Vol] 3.9 E9/L Low 4.0 - 11.0 E9/L [facility] URINALYSISOrdered By: Barbara iverson on 11-12-2021 Bilirubin Ql (U) Negative (11/12/21 4:09 AM) Normal Negative [facility] Auto SS Clarity (U) Clear (11/12/21 4:09 AM) Normal Clear [facility] SS Color (U) STRAW Invalid Interpretation Code [facility] Auto SS Epithelial cells.squamous LM.HPF (Urine sed) [#/Area] 0-2 /HPF Normal 0-2/HPF [facility] Aut [place] SS Glucose Test strip (U) [Mass/Vol] Negative (11/12/21 4:09 AM) Normal Negative [facility] Auto SS Hemoglobin Ql (U) Negative (11/12/21 4:09 AM) Normal Negative [facility] Auto SS Ketones (U) [Mass/Vol] Negative (11/12/21 4:09 AM) Normal Negative [facility]A Auto SS [place].plasma/[place]. RBC (Bld) [Mass ratio] 0-3 /HPF Normal 0-3/HPF [facility] A uto SS Nitrite Ql (U) Negative (11/12/21 4:09 AM) Normal Negative [facility] Auto SS pH (U) 6.0 *NA* (11/12/21 4:09 AM) Invalid Interpretation Code 5.0 - 9.0 [facility] Auto SS Protein (U) [Mass/Vol] Negative (11/12/21 4:09 AM) Normal Negative [facility] Auto SS Specific gravity (U) [Rel density] <=1.005 *NA* (11/12/21 4:09 AM) Invalid Interpretation Code 1.005 - 1.030 [facility] Auto [facility] UA Spec Desc Clean Catch (11/12/21 4:09 AM) Normal [facility] Auto SS Urobilinogen Qn (U) [id number] {Klarissa'U}/dL Normal 0.0 - 1.0 EU/dL [facility] Auto SS WBC Auto Ql (U) Negative (11/12/21 4:09 AM) Normal Negative [facility]A Auto SS WBC LM.HPF (Urine sed) [#/Area] 0-5 /HPF Normal 0-5/HPF [facility] Auto SS CHEMISTRYOrdered By: Lab ROP User on 11-11-2021 Glucose [Mass/Vol] 90 mg/dL Normal 55 - 99 mg/dL [facility] P[place] Subsection Comment on above: Result Comment: J Carlos nicole RN/ POC Device SN [id number] Invalid Interpretation Code [facility] POC Subsection POC User ID [id number] Invalid Interpretation Code [facility] [place] Subsection POC Username Josie Whipple Invalid Interpretation Code [facility] P[place] Subsection Urine Drug Screenon 09-23-19 21 Amphetamine Screen, Ur Negative NEGATIVE [facility] Work Phone: Comment on above: (Positive cutoff 500 ng/mL) Barbiturate Screen, Ur Negative NEGATIVE [facility] Work Phone: Comment on above: (Positive cutoff 200 ng/mL) Benzodiazepine Screen, Urine Negative NEGATIVE [facility] Work Phone: Comment on above: (Positive cutoff 150 ng/mL) Buprenorphine Urine NOT REPORTED NEGATIVE [facility] Work Phone: Cannabinoid Scrn, Ur Negative NEGATIVE [facility] Work Phone: Comment on above: (Positive cutoff 50 ng/mL) Cocaine Metabolite, Urine Negative NEGATIVE [facility] Work Phone: Comment on above: (Positive cutoff 150 ng/mL) MDMA, Urine NOT REPORTED [facility]IVE [facility] Work Phone: Methadone Screen, Urine Negative [facility]IVE [facility] Work Phone: Comment on above: (Positive cutoff 200 ng/mL) Methamphetamine, Urine Negative NEGATIVE [facility] Work Phone: Comment on above: (Positive cutoff 500 ng/mL) Opiates, Urine Negative NEGATIVE [facility] Work Phone: Comment on above: (Positive cutoff 100 ng/mL) Oxycodone Screen, Ur Negative NEGATIVE [facility] Work Phone: Comment on above: (Positive cutoff 100 ng/mL) Phencyclidine, Urine Negative NEGATIVE [facility] Work Phone: Comment on above: (Positive cutoff 25 ng/mL) Propoxyphene, Urine Negative NEGATIVE [facility] Work Phone: Comment on above: (Positive cutoff 300 ng/mL) Test Information NOT REPORTED [facility] Work Phone: Tricyclic Antidepressants, Urine Negative NEGATIVE [facility] Work Phone: Comment on above: (Positive cutoff 300 ng/mL) Drug screen results are to be used for medical purposes only. All positive results are unconfirmed. Testing for employment or legal uses should be sent to a reference laboratory for confirmation. CHEST AND LATERALon 02-24-20 CHEST AND LATERAL [facility] Department of Radiology [address] [place] [id number] ======== Patient Name: MELBA LEVY : 1955 Sex: M Age: Race: White Pt. Location: Patient Status: O Ordered Date: 02/23/2018 1:25:00 PM Completed Date: 02/23/2018 01:52 PM Requesting Provider: SVITLANA JONES Attending Provider: KATIA BOYCE Report Copy To: ELENA ANN Signs & Symptoms: S22.41XD Multiple fx of ribs, right side, subs for fx w routn heal I10 History: Fernanda Comments: , , , Ordering Provider - SVITLANA JONES MD , Exam: CHEST AND LATERAL ======== CHEST AND LATERAL 02/23/2018 1:52 PM EDT SIGNS AND SYMPTOMS: S22.41XD Multiple fx of ribs, right side, subs for fx w routn heal I10 TECHNOLOGIST COMMENTS: patient states follow up for multiple right rib fx and pneumo. some mild shortness of breath QUESTION FOR THE RADIOLOGIST: , , , Ordering Provider - SVITLANA JONES MD , PROTOCOL: AP(PA) and Lateral views were obtained. COMPARISON: January 12, 2018. FINDINGS: Trachea is midline. Median sternotomy wires are unchanged. 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 The mediastinal silhouette is within normal limits. Minor atelectatic changes in the left lower lobe. There appears to be elevation of the minor fissure could possibly represent improving right upper lobe both airspace disease. Both costophrenic sulci are mildly blunted, possibly representing hyperinflation. There is a minor minor loculated effusion on the right. No pneumothorax. There is no subdiaphragmatic free air. Osseous structures reveal no acute abnormalities. There are multiple old healing rib fractures on the right. IMPRESSION: Interval improvement of bilateral airspace disease. No pneumothorax. Approved by:MELA HERNANDEZ on 02/23/2018 2:37 PM EDT. I, Robert Moya, have reviewed the images and report and concur with these findings. Electronically signed by:Robert Moya. Transcribed by: [email or web address], User Resident: MELA HERNANDEZ Electronically Signed by: ROBERT MOYA @ 02/23/2018 02:50 PM I personally read this/these film(s) with this resident Normal [facility] Comment on above: Order Comment: Yes: Add to Previous draw if able Cult,Bloodon 01-17-2018 Cult,Blood Specimen Description .BLOOD Special Requests 10CC RED 10CC PURPLE RT AC Culture NO GROWTH 6 DAYS Report Status FINAL 01/17/2018 Normal [facility] Comment on above: Performed By: #### C DP, PT, PTT, TROPI, CP, BNP ####[facility] [facility] [place] [address] Cult,Bloodon 01-16-2018 Cult,Blood Specimen Description .BLOOD Special Requests 2CC RED 10CC PURPLE LT WRIST Culture NO GROWTH 6 DAYS Report Status FINAL 01/16/2018 Normal [facility] Comment on above: Performed By: #### C DP, PT, PTT, TROPI, CP, BNP ####[id number] [place] [address] US GALLBLADDER ECHOGRAMon US GALLBLADDER ECHOGRAM [facility] Department of Radiology [address] [place] [id number] ======== Patient Name: MELBA LEVY : 1955 Sex: M Age: Race: White Pt. Location: [id number] Patient Status: I Ordered Date: 01/14/2018 1:35:00 PM Completed Date: 01/15/2018 09:27 AM Requesting Provider: FERNANDO PLASENCIA Attending Provider: DEXTER HERNANDEZ Report Copy To: Signs & Symptoms: RUQ/Abdominal Pain History: Patient history not available Comments: R/O Biliary Disease Exam: US GALLBLADDER ECHOGRAM ======== US GALLBLADDER ECHOGRAM 01/15/2018 9:27 AM EDT SIGNS AND SYMPTOMS: RUQ/Abdominal Pain TECHNOLOGIST COMMENTS: QUESTION FOR THE RADIOLOGIST: R/O Biliary Disease TECHNIQUE: Limited abdominal ultrasound. COMPARISON: none FINDINGS: The gallbladder appears normal in size and shape and has a normal appearing wall. No abnormal echoes are noted from within the gallbladder to suggest calculi The extra hepatic bile duct measured 4 mm. IMPRESSION: Unremarkable gallbladder ultrasound. Electronically signed by:Melba Burnham. Transcribed by: [email or web address], User Resident: Electronically Signed by: MELBA BURNHAM @ 01/15/2018 09:35 AM Normal [facility] Comment on above: Order Comment: Yes: Add to Previous draw if able LIVER BATTERYon 01-14-2018 Albumin mass conc 1.6 g/dL Low 3.5-5.[address] [facility] Comment on above: Order Comment: Yes: Add to Previous draw if able Performed By: #### [id number] #### [facility] [address] [place] [address], [facility] ALKALINE PHOSPH 61 IU/L Normal 34-[address] [facility] Comment on above: Order Comment: Yes: Add to Previous draw if able Performed By: #### [id number] #### [facility] [address] [place] [address], [place] ALT enzyme act/vol U/L Low 7-[address] [facility] Comment on above: Order Comment: Yes: Add to Previous draw if able Performed By: #### [id number] #### [facility] [address] [place] [address], [facility] AST enzyme act/vol 15 U/L Normal 13-[address] [facility] Comment on above: Order Comment: Yes: Add to Previous draw if able Performed By: #### [id number] #### [facility] [address] [place] [address], [facility] Bilirubin mass conc 0.4 mg/dL Normal 0.3-1.[address] [facility] Comment on above: Order Comment: Yes: Add to Previous draw if able Performed By: #### [id number] #### [facility] [address] [place] [address], [place] Bilirubin.direct mass conc 0.1 mg/dL Normal 0.0-0.[address] [facility] Comment on above: Order Comment: Yes: Add to Previous draw if able Performed By: #### [id number] #### [facility] [address] [place] [address], [place] Protein mass conc 5.8 g/dL Low 6.0-8.[address] [facility] Comment on above: Order Comment: Yes: Add to Previous draw if able Performed By: #### [id number] #### [facility] [address] [place] [address], [facility] POC GLUCOSE LABon 01-14-2018 Glucose mass conc 106 mg/dL High 70-[address] [facility] Comment on above: Performed By: #### [id number] #### [facility] [address] [place] [address], [facility] BASIC METABOLIC PANELon 07-0 Calcium mass conc 7.6 mg/dL Low 8.6-10.[address] [facility] Comment on above: Order Comment: Yes: Add to Previous draw if able Performed By: #### [id number] #### [facility] [address] [place] [address], [facility] Chloride molar conc 99 mmol/L Normal 98-[address] [facility] Comment on above: Order Comment: Yes: Add to Previous draw if able Performed By: #### [id number] #### [facility] [address] [place] [address], [place] CO2 molar conc 35 mmol/L High 21-[address] [facility] Comment on above: Order Comment: Yes: Add to Previous draw if able Performed By: #### [id number] #### [facility] [address] [place] [address], [facility] Creatinine mass conc 0.67 mg/dL Low 0.70-1.[address] [facility] Comment on above: Order Comment: Yes: Add to Previous draw if able Performed By: #### [id number] #### [facility] [address] [place] [address], [place] GFR/1.73 sq M predicted among blacks MDRD vol rate/area (S/P/Bld) mL/min/{1.73_m2} Normal >[address] [facility] Comment on above: Order Comment: Yes: Add to Previous draw if able Performed By: #### [id number] #### [facility] [address] [place] [address], [place] GFR/1.73 sq M predicted among non-blacks MDRD vol rate/area (S/P/Bld) mL/min/{1.73_m2} Normal >[address] [facility] Comment on above: Order Comment: Yes: Add to Previous draw if able Performed By: #### [id number] #### [facility] [address] [place] [address], [facility] Glucose mass conc 79 mg/dL Normal 70-[address] [facility] Comment on above: Order Comment: Yes: Add to Previous draw if able Performed By: #### [id number] #### [facility] [address] [place] [address], [facility] Potassium molar conc 3.7 mmol/L Normal 3.5-5.[address] [facility] Comment on above: Order Comment: Yes: Add to Previous draw if able Performed By: #### 5 [id number] #### [facility] [address] [place] [address], [facility] Sodium molar conc 135 mmol/L Low 136-[address] [facility] Comment on above: Order Comment: Yes: Add to Previous draw if able Performed By: #### [id number] #### [facility] [address] [place] [address], [facility] Urea nitrogen mass conc 8 mg/dL Normal 7-[address] [facility] Comment on above: Order Comment: Yes: Add to Previous draw if able Performed By: #### [id number] #### [facility] [address] [facility] CBC COMPLETE BLOOD COUNTon 0 - Erythrocyte distribution width Ratio (RBC) 16.0 % High 11.5-15.[address] [facility] Comment on above: Order Comment: Yes: Add to Previous draw if able Performed By: #### [id number] #### [facility] [address] Hematocrit Volume Fraction (Bld) 23.9 % Low 39.0-50.[address] [facility] Comment on above: Order Comment: Yes: Add to Previous draw if able Performed By: #### [id number] #### [facility] [address] Hemoglobin mass conc (Bld) 7.8 g/dL Low 13.0-17.[address] [facility] Comment on above: Order Comment: Yes: Add to Previous draw if able Performed By: #### [id number] #### [facility] [address] MCH Entitic mass (RBC) 30.7 pg Normal 27.0-33.[address] [facility] Comment on above: Order Comment: Yes: Add to Previous draw if able Performed By: #### 5 [id number] #### [facility] [address] MCHC mass conc (RBC) 32.6 g/dL Normal 32.0-35.[address] [facility] Comment on above: Order Comment: Yes: Add to Previous draw if able Performed By: #### 5 [id number] #### [facility] [address] MCV Entitic volume (RBC) 94.1 fL Normal 82.0-98.[address] [facility] Comment on above: Order Comment: Yes: Add to Previous draw if able Performed By: #### [id number] #### [facility] [address] [facility] [address] Nucleated RBC/100 WBC Ratio (Bld) 0 % Normal 0-[address] [facility] Comment on above: Order Comment: Yes: Add to Previous draw if able Performed By: #### [id number] #### [facility] [address] [facility] [place] [address], [facility] PLAT CNT 443 10*3/uL High 150-[address] [facility] Comment on above: Order Comment: Yes: Add to Previous draw if able Performed By: #### 5 [id number] #### [facility] [address] [place] [address], [facility] RBC #/vol (Bld) 2.54 10*6/uL Low 4.20-5.[address] [facility] Comment on above: Order Comment: Yes: Add to Previous draw if able Performed By: #### 5 [id number] #### [facility] [address] [place] [address], [facility] WBC #/vol (Bld) 7.21 10*3/uL Normal 4.00-10.[address] [facility] Comment on above: Order Comment: Yes: Add to Previous draw if able Performed By: #### [id number] #### [facility] [address] [place] [address], [facility] MAGNESIUM BLOODon 01-12-2018 Magnesium mass conc 1.3 mg/dL Low 1.9-2.[address] [facility] Comment on above: Order Comment: Yes: Add to Previous draw if able Performed By: #### [id number] #### [facility] [address] [facility] [place], [place] [address] [place] [address] MRSA, DNA, Nasalon 8 MRSA, DNA, Nasal NEGATIVE: MRSA DNA n ot detected by nucleic acid amplification. Normal [facility] Comment on above: Result Comment: Resu lts should be used as an adjunct to nosocomial control efforts to identify patients needing enhanced precautions.The test is not intended to identify patients with staphylococcal infections. Results should not be used to guide or monitor treatment for MRSA infections. Performed By: #### C DP, PT, PTT, TROPI, CP, BNP ####[facility] [facility] [place] [address] PHOSPHORUS BLOODon 8 Phosphate mass conc 3.4 mg/dL Normal 2.5-5.[address] [facility] Comment on above: Order Comment: Yes: Add to Previous draw if able Performed By: #### 5 [id number] #### [facility] [address] [place] [address], [facility] PORTABLE CHEST 1 VIEWon PORTABLE CHEST 1 VIEW [facility] Department of Radiology [address] [place] [id number] ======== Patient Name: MELBA LEVY : 1955 Sex: M Age: Race: White Pt. Location: [id number] Patient Status: I Ordered Date: 01/12/2018 3:20:00 AM Completed Date: 01/12/2018 04:55 AM Requesting Provider: ADELE ESTES Attending Provider: DEXTER HERNANDEZ Report Copy To: Signs & Symptoms: Acute Respiratory Distress History: Patient history not available Comments: R/O Infiltrates Exam: PORTABLE CHEST 1 VIEW ======== PORTABLE CHEST 1 VIEW 01/12/2018 4:55 AM EDT SIGNS AND SYMPTOMS: Acute Respiratory Distress TECHNOLOGIST COMMENTS: shortness of breath QUESTION FOR THE RADIOLOGIST: R/O Infiltrates PROTOCOL: AP(PA) view was obtained. COMPARISON: January 09 FINDINGS: The heart remains mildly enlarged. Bilateral infiltrates consistent with pneumonia or pulmonary edema. No gross effusion. There may be a small costophrenic effusion on the left. No marked venous congestion.. Tubing overlies the left chest. IMPRESSION: Bilateral infiltrates most likely pneumonia but certainly the distribution can be seen with congestive heart failure. Mild improvement when compared with prior study. Electronically signed by:Robert Moya. Transcribed by: [email or web address], User Resident: Electronically Signed by: ROBERT MOYA @ 01/12/2018 08:21 AM Normal [facility] Comment on above: Order Comment: Yes: Add to Previous draw if able *BLOOD CULTUREon 01-11-2018 Bacteria identified Cx Nom (Bld) Clinical Report: (D) Specimen: BLOOD CULTURE Collected: 01/11/2018 19:27 Status: Final Last Updated: 01/17/2018 07:03 CULT RES (Final) No Growth Day 5 Normal [facility] Comment on above: Performed By: #### 5 [id number] #### [facility] [address] [place] [address], [facility] BASIC METABOLIC PANELon 07-0 Calcium mass conc 8.1 mg/dL Low 8.6-10.[address] [facility] Comment on above: Order Comment: Yes: Add to Previous draw if able Performed By: #### 5 0608 #### [facility] [address] [place] [address], [facility] Chloride molar conc 97 mmol/L Low 98-[address] [facility] Comment on above: Order Comment: Yes: Add to Previous draw if able Performed By: #### 5 0608 #### [facility] [address] [place] [address], [place] CO2 molar conc 36 mmol/L High 21-[address] [facility] Comment on above: Order Comment: Yes: Add to Previous draw if able Performed By: #### 5 0608 #### [facility] [address] [place] [address], [place] Creatinine mass conc 0.80 mg/dL Normal 0.70-1.[address] [facility] Comment on above: Order Comment: Yes: Add to Previous draw if able Performed By: #### 5 0608 #### [facility] [address] [place] [address], [place] GFR/1.73 sq M predicted among blacks MDRD vol rate/area (S/P/Bld) mL/min/{1.73_m2} Normal >[address] [facility] Comment on above: Order Comment: Yes: Add to Previous draw if able Performed By: #### 5 0608 #### [facility] [address] [place] [address], [facility] GFR/1.73 sq M predicted among non-blacks MDRD vol rate/area (S/P/Bld) mL/min/{1.73_m2} Normal >[address] [facility] Comment on above: Order Comment: Yes: Add to Previous draw if able Performed By: #### 5 0608 #### [facility] [address] [place] [address], [facility] Glucose mass conc 101 mg/dL High 70-[address] [facility] Comment on above: Order Comment: Yes: Add to Previous draw if able Performed By: #### 5 0608 #### [facility] [address] [place] [id number], [facility] Potassium molar conc 3.9 mmol/L Normal 3.5-5.[address] [facility] Comment on above: Order Comment: Yes: Add to Previous draw if able Performed By: #### 5 0608 #### [facility] [address] [place] [address], [place] Sodium molar conc 135 mmol/L Low 136-[address] [facility] Comment on above: Order Comment: Yes: Add to Previous draw if able Performed By: #### 5 0608 #### [facility] [address] [place] [address], [place] Urea nitrogen mass conc 9 mg/dL Normal 7-[address] [facility] Comment on above: Order Comment: Yes: Add to Previous draw if able Performed By: #### 5 0608 #### [facility] [address] [place] [address], [facility] Basic Metabolic Profon 01-11 (cont.) Normal [facility] Comment on above: Result Comment: Aver age GFR for 60-69 years old: 85 mL/min/1.73sq mChronic Kidney Disease: <60 mL/min/1.73sq mKidney failure: <15 mL/min/1.73sq meGFR calculated using average adult body mass. Additional eGFR calculator available at:http://www.[employer].com/multiple_crcl_2012.htm Performed By: #### C DP, PT, PTT, TROPI, CP, BNP ####[address] [place] [address] Anion gap 7 mmol/L Low 9-17 [facility] Comment on above: Performed By: #### C DP, PT, PTT, TROPI, CP, BNP ####[address] [place] [address] Calcium 7.9 mg/dL Low 8.6-10.4 [facility] Comment on above: Performed By: #### C DP, PT, PTT, TROPI, CP, BNP ####[address] [place] [address] Chloride 99 mmol/L Normal 98-107 [facility] Comment on above: Performed By: #### C DP, PT, PTT, TROPI, CP, BNP ####[address] [address] CO2 33 mmol/L High 20-31 [facility] Comment on above: Performed By: #### C DP, PT, PTT, TROPI, CP, BNP ####[address] [address] Creatinine 0.56 mg/dL Low 0.70-1.20 [facility] Comment on above: Performed By: #### C DP, PT, PTT, TROPI, CP, BNP ####[address] [address] eGFR (non-black) mL/min/{1.73_m2} Normal >60 [facility] Comment on above: Performed By: #### C DP, PT, PTT, TROPI, CP, BNP ####[address] [place] [address] Glucose mass conc 83 mg/dL Normal 70-99 [facility] Comment on above: Performed By: #### C DP, PT, PTT, TROPI, CP, BNP ####[address] [address] Potassium molar conc 4.4 mmol/L Normal 3.7-5.3 [facility] Comment on above: Performed By: #### C DP, PT, PTT, TROPI, CP, BNP ####[address] [address] Sodium 139 mmol/L Normal 135-144 [facility] Comment on above: Performed By: #### C DP, PT, PTT, TROPI, CP, BNP ####[address] [address] Urea nitrogen 7 mg/dL Low 8-23 [facility] Comment on above: Performed By: #### C DP, PT, PTT, TROPI, CP, BNP ####[address] [address] BUN/CRE Ratio NOT REPORTED Normal 9-20 [facility] Comment on above: Performed By: #### C DP, PT, PTT, TROPI, CP, BNP ####[address] [address] Staging: NOT REPORTED Normal [facility] Comment on above: Performed By: #### C DP, PT, PTT, TROPI, CP, BNP ####[address] [address] CBC COMPLETE BLOOD COUNTon 0 01-11-2018 Erythrocyte distribution width Ratio (RBC) 15.9 % High 11.5-15.[address] [facility] Comment on above: Order Comment: Yes: Add to Previous draw if able Performed By: #### 5 0608 #### [facility] [address] Hematocrit Volume Fraction (Bld) 27.1 % Low 39.0-50.[address] [facility] Comment on above: Order Comment: Yes: Add to Previous draw if able Performed By: #### 5 0608 #### [facility] [address] [place] [address], [facility] Hemoglobin mass conc (Bld) 8.8 g/dL Low 13.0-17.[address] [facility] Comment on above: Order Comment: Yes: Add to Previous draw if able Performed By: #### 5 0608 #### [facility] [address] [place] [address], [facility] MCH Entitic mass (RBC) 30.7 pg Normal 27.0-33.[address] [facility] Comment on above: Order Comment: Yes: Add to Previous draw if able Performed By: #### 5 0608 #### [facility] [address] MCHC mass conc (RBC) 32.5 g/dL Normal 32.0-35.[address] [facility] Comment on above: Order Comment: Yes: Add to Previous draw if able Performed By: #### 5 0608 #### [facility] [address] [place] [address], [facility] MCV Entitic volume (RBC) 94.4 fL Normal 82.0-98.[address] [facility] Comment on above: Order Comment: Yes: Add to Previous draw if able Performed By: #### 5 0608 #### [facility] [address] [place] [address], [facility] Nucleated RBC/100 WBC Ratio (Bld) 0 % Normal 0-[address] [facility] Comment on above: Order Comment: Yes: Add to Previous draw if able Performed By: #### 5 0608 #### [facility] [address] [place] [address], [facility] PLAT CNT 522 10*3/uL High 150-[address] [facility] Comment on above: Order Comment: Yes: Add to Previous draw if able Performed By: #### 5 0608 #### [facility] [address] [place] [address], [facility] RBC #/vol (Bld) 2.87 10*6/uL Low 4.20-5.[address] [facility] Comment on above: Order Comment: Yes: Add to Previous draw if able Performed By: #### 5 0608 #### [facility] [address] [place] [id number], [facility] WBC #/vol (Bld) 7.09 10*3/uL Normal 4.00-10.[address] [facility] Comment on above: Order Comment: Yes: Add to Previous draw if able Performed By: #### 5 0608 #### [facility] [address] [place] [address], [facility] CBC with Diffon 01-11-2018 Abs. Bands 0.27 k/uL Normal 0.0-1.0 [facility] Comment on above: Performed By: #### C DP, PT, PTT, TROPI, CP, BNP ####[place] [address] [place] [address] Abs. Basophil 0.00 k/uL Normal 0.0-0.2 [facility] Comment on above: Performed By: #### C DP, PT, PTT, TROPI, CP, BNP ####[facility] [place] [address] Abs. [place] 0.07 k/uL High 0 [facility] Comment on above: Performed By: #### C DP, PT, PTT, TROPI, CP, BNP ####[address] [address] Abs.Neutrophil (Seg) 4.48 k/uL Normal 1.3-9.1 [facility] Comment on above: Performed By: #### C DP, PT, PTT, TROPI, CP, BNP ####[address] [place] [address] Bands 4 % Normal 0-10 [facility] Comment on above: Performed By: #### C DP, PT, PTT, TROPI, CP, BNP ####[address] [address] Basophils/100 WBC Auto (Bld) 0 % Normal 0-2 [facility] Comment on above: Performed By: #### C DP, PT, PTT, TROPI, CP, BNP ####[address] [address] Blood morphology ANISOCYTOSIS PRESENT Normal [facility] Comment on above: Result Comment: HYPO CHROMIA PRESENTMODERATEROULEAU1+POLYCHROMASIA Performed By: #### C DP, PT, PTT, TROPI, CP, BNP ####[facility] [place] [address] Eosinophils 0.20 10*3/uL Normal 0.0-0.4 [facility] Comment on above: Performed By: #### C DP, PT, PTT, TROPI, CP, BNP ####[address] [address] Eosinophils/100 leukocytes 3 % Normal 0-4 [facility] Comment on above: Performed By: #### C DP, PT, PTT, TROPI, CP, BNP ####[address] [address] Lymphocytes 0.94 10*3/uL Low 1.0-4.8 [facility] Comment on above: Performed By: #### C DP, PT, PTT, TROPI, CP, BNP ####[address] [place] [address] Lymphocytes/100 leukocytes 14 % Low 24-44 [facility] Comment on above: Performed By: #### C DP, PT, PTT, TROPI, CP, BNP ####[facility] [place] [address] Metamyelocytes/100 leukocytes 1 % High 0 [facility] Comment on above: Performed By: #### C DP, PT, PTT, TROPI, CP, BNP ####[facility] [place] [address] Monocytes 0.74 10*3/uL Normal 0.1-1.3 [facility] Comment on above: Performed By: #### C DP, PT, PTT, TROPI, CP, BNP ####[address] [address] Monocytes/100 leukocytes 11 % High 1-7 [facility] Comment on above: Performed By: #### C DP, PT, PTT, TROPI, CP, BNP ####[address] [address] Neutrophil (Seg) 67 % High 36-66 [facility] Comment on above: Performed By: #### C DP, PT, PTT, TROPI, CP, BNP ####[address] [address] Erythrocyte distribution width Auto Ratio (RBC) 15.6 % High 11.5-14.9 [facility] Comment on above: Performed By: #### C DP, PT, PTT, TROPI, CP, BNP ####[address] [address] Erythrocytes (RBC) 2.70 10*6/uL Low 4.5-5.9 [facility] Comment on above: Performed By: #### C DP, PT, PTT, TROPI, CP, BNP ####[address] [address] Hematocrit (HCT) 25.3 % Low 41-53 [facility] Comment on above: Performed By: #### C DP, PT, PTT, TROPI, CP, BNP ####[address] [address] Hemoglobin mass conc (Bld) 8.7 g/dL Low 13.5-17.5 [facility] Comment on above: Performed By: #### C DP, PT, PTT, TROPI, CP, BNP ####[address] [address] MCH 32.2 pg Normal 26-34 [facility] Comment on above: Performed By: #### C DP, PT, PTT, TROPI, CP, BNP ####[address] [address] MCHC mass conc (RBC) 34.3 g/dL Normal 31-37 [facility] Comment on above: Performed By: #### C DP, PT, PTT, TROPI, CP, BNP ####[address] [address] MCV 93.8 fL Normal 80-100 [facility] Comment on above: Performed By: #### C DP, PT, PTT, TROPI, CP, BNP ####[address] [address] Platelet mean volume (PMV) 7.4 fL Normal 6.0-12.0 [facility] Comment on above: Performed By: #### C DP, PT, PTT, TROPI, CP, BNP ####[address] [address] Platelets 479 10*3/uL High 150-450 [facility] Comment on above: Performed By: #### C DP, PT, PTT, TROPI, CP, BNP ####[address] [address] WBC (Leukocytes) 6.7 10*3/uL Normal 3.5-11.0 [facility] Comment on above: Performed By: #### C DP, PT, PTT, TROPI, CP, BNP ####[address] [address] Auto Diff Performed NOT REPORTED Normal [facility] Comment on above: Performed By: #### C DP, PT, PTT, TROPI, CP, BNP ####[address] [address] Erythrocyte morphology NOT REPORTED Normal [facility] Comment on above: Performed By: #### C DP, PT, PTT, TROPI, CP, BNP ####[address] [address] Erythrocytes (RBC) NOT REPORTED Normal [facility] Comment on above: Performed By: #### C DP, PT, PTT, TROPI, CP, BNP ####[address] [address] Granulocytes/100 WBC (Bld) NOT REPORTED Normal 0.00-0.30 [facility] Comment on above: Performed By: #### C DP, PT, PTT, TROPI, CP, BNP ####[address] [address] Immature granulocytes #/vol (Bld) NOT REPORTED Normal 0 [facility] Comment on above: Performed By: #### C DP, PT, PTT, TROPI, CP, BNP ####[address] [address] Platelets NOT REPORTED Normal [facility] Comment on above: Performed By: #### C DP, PT, PTT, TROPI, CP, BNP ####[facility] [facility] [place] [address] WBC Morphology NOT REPORTED Normal [facility] Comment on above: Performed By: #### C DP, PT, PTT, TROPI, CP, BNP ####[facility] [facility] [place] [address] D-Dimer Teston 01-11-2018 D-Dimer Test 3.94 mg/L FEU High <0.50 [facility] Comment on above: Result Comment: When combined with a low clinical probability, a D dimer value of <0.50 mg/L FEU is considered negative for DVT and PE (negative predictive value of 98%, sensitivity of 97%). If this test is not being used to help rule out DVT and PE, then the following reference range should be utilized: 0.00 - 1.02 mg/L FEU.The [employer] D-Dimer assay is intended for use as an aid in the diagnosis of venous thromboembolism (DVT and PE) and the results should be interpreted in conjunction with the patient's medical history, clinical presentation, and other findings.Elevated levels of D-dimer activity can be seen in any state of coagulation activation and is not recommended in patients with therapeutic dose anticoagulant therapy for >24 hours, fibrinolytic therapy within the previous 7 days, trauma or surgery within the previous 4 weeks, disseminated malignancies, aortic aneurysm, sepsis, severe infections, pneumonia, severe skin infections, liver cirrhosis, advanced age, coronary disease, diabetes, and . A very low percentage of patients with DVT may yield D-dimer results below the cutoff of 0.5 mg/L FEU. This is known to be more prevalent in patients with distal DVT. Performed By: #### C DP, PT, PTT, TROPI, CP, BNP ####[facility] [facility] [place] [address] MAGNESIUM BLOODon 01-11-2018 Magnesium mass conc 1.4 mg/dL Low 1.9-2.[address] [facility] Comment on above: Order Comment: Yes: Add to Previous draw if able Performed By: #### 5 0608 #### [facility] [address] [place] [address], [facility] MRSA, DNA, Nasalon 8 Specimen Description .NASAL SWAB Normal [facility] Comment on above: Performed By: #### C DP, PT, PTT, TROPI, CP, BNP ####[facility] [place] [address] PHOSPHORUS BLOODon 8 Phosphate mass conc 3.6 mg/dL Normal 2.5-5.[address] [facility] Comment on above: Order Comment: Yes: Add to Previous draw if able Performed By: #### 5 0608 #### [facility] [address] [place] [address], [facility] APTTon 01-10-2018 aPTT 33.1 s High 23.0-31.0 [facility] Comment on above: Result Comment: IV H eparin Therapy Range: 64.3-87.8 Performed By: #### C DP, PT, PTT, TROPI, CP, BNP ####[facility] [place] [address] Brain Natri. Peptideon 01-10 BNP 5123 pg/mL High <300 [facility] Comment on above: Result Comment: Pro- BNP results cannot be compared to BNP results. Performed By: #### C DP, PT, PTT, TROPI, CP, BNP ####[facility] [place] [address] BNP Normal [facility] Comment on above: Result Comment: Pro- BNP Reference Range:Rule Out: <300Grey Zone: Age <50 300-450 Age 50-75 300-900 Age >75 300-1800Usually represents mild to moderate HF but other cardiopulmonary causes cannot be ruled out.Rule In: Age <50 >450 Age 50-75 >900 Age >75 >1800 Performed By: #### C DP, PT, PTT, TROPI, CP, BNP ####[address] [address] CBC with Diffon 01-10-2018 Abs. Basophil 0.10 k/uL Normal 0.0-0.2 [facility] Comment on above: Performed By: #### C DP, PT, PTT, TROPI, CP, BNP ####[place] [address] Abs.Neutrophil (Seg) 5.60 k/uL Normal 1.3-9.1 [facility] Comment on above: Performed By: #### C DP, PT, PTT, TROPI, CP, BNP ####[address] [address] Basophils/100 WBC Auto (Bld) 1 % Normal 0-2 [facility] Comment on above: Performed By: #### C DP, PT, PTT, TROPI, CP, BNP ####[facility] [place] [address] Eosinophils 0.40 10*3/uL Normal 0.0-0.4 [facility] Comment on above: Performed By: #### C DP, PT, PTT, TROPI, CP, BNP ####[address] [address] Eosinophils/100 leukocytes 5 % High 0-4 [facility] Comment on above: Performed By: #### C DP, PT, PTT, TROPI, CP, BNP ####[address] [address] Erythrocyte distribution width Auto Ratio (RBC) 15.1 % High 11.5-14.9 [facility] Comment on above: Performed By: #### C DP, PT, PTT, TROPI, CP, BNP ####[place] [address] [facility] [place] [address] Erythrocytes (RBC) 3.11 10*6/uL Low 4.5-5.9 [facility] Comment on above: Performed By: #### C DP, PT, PTT, TROPI, CP, BNP ####[address] [place] [address] Hematocrit (HCT) 28.8 % Low 41-53 [facility] Comment on above: Performed By: #### C DP, PT, PTT, TROPI, CP, BNP ####[address] [place] [address] Hemoglobin mass conc (Bld) 9.6 g/dL Low 13.5-17.5 [facility] Comment on above: Performed By: #### C DP, PT, PTT, TROPI, CP, BNP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 [place] [address], [facility] MONOS 17.2 % High 5.0-12.[address] [facility] Comment on above: Order Comment: Yes: Add to Previous draw if able Performed By: #### 5 [id number] #### [facility] [address] [place] [address], [facility] Neutrophils/100 WBC (Bld) 64.8 % Normal 40.0-72.[address] [facility] Comment on above: Order Comment: Yes: Add to Previous draw if able Performed By: #### 5 [id number] #### [facility] [address] [place] [address], [facility] Nucleated RBC/100 WBC Ratio (Bld) 0 % Normal 0-[address] [facility] Comment on above: Order Comment: Yes: Add to Previous draw if able Performed By: #### 5 [id number] #### [facility] [address] [facility] [place] [address], [facility] PLAT CNT 347 10*3/uL Normal 150-[address] [facility] Comment on above: Order Comment: Yes: Add to Previous draw if able Performed By: #### 5 [id number] #### [facility] [address] RBC #/vol (Bld) 2.57 10*6/uL Low 4.20-5.[address] [facility] Comment on above: Order Comment: Yes: Add to Previous draw if able Performed By: #### 5 [id number] #### [facility] [address] [place] [address], [facility] WBC #/vol (Bld) 8.31 10*3/uL Normal 4.00-10.[address] [facility] Comment on above: Order Comment: Yes: Add to Previous draw if able Performed By: #### 5 [id number] #### [facility] [address] [place] [address], [facility] HEMOGLOBINon 01-09-2018 Hemoglobin mass conc (Bld) 8.2 g/dL Low 13.0-17.[address] [facility] Comment on above: Order Comment: Yes: Add to Previous draw if able Performed By: #### 5 [id number] #### [address] PORTABLE CHEST 1 VIEWon 12-13 PORTABLE CHEST 1 VIEW [facility] Department of Radiology [address] [place] [address] ======== Patient Name: MELBA LEVY : 1955 Sex: M Age: Race: White Pt. Location: [id number] Patient Status: I Ordered Date: 01/09/2018 3:30:00 PM Completed Date: 01/09/2018 03:27 PM Requesting Provider: TREVA DEL ANGEL Attending Provider: MELODY CHISHOLM Report Copy To: Signs & Symptoms: Post Chest Tube Removal History: Patient history not available Comments: R/O Pneumothorax Exam: PORTABLE CHEST 1 VIEW ======== Addendum Begins Please note that the above report is actually for the January 07, 2018 study. Corrected report for the January 09, 2018 study is below in this addendum: Postsurgical changes in the heart and mediastinum. 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 A PICC line unchanged. Right chest tube is been removed. No right pneumothorax. Airspace density right midlung slightly increased since prior exam. Left midlung airspace density likely pneumonia also increased. Stable right posterior rib fractures. IMPRESSION: Right chest tube has been removed. No pneumothorax Bilateral airspace density slightly increased. Concerning for pneumonia on the left. Electronically signed by:Thai Mcclain. Addendum Ends PORTABLE CHEST 1 VIEW 01/09/2018 3:27 PM EDT SIGNS AND SYMPTOMS: Post Chest Tube Removal TECHNOLOGIST COMMENTS: chest tube removed QUESTION FOR THE RADIOLOGIST: R/O Pneumothorax PROTOCOL: AP(PA) view was obtained. COMPARISON: January 07, 2018 FINDINGS: Airspace consolidation right mid lung. Airspace consolidation left upper lobe and left lower lobe. Heart mediastinum unchanged postsurgical changes consistent with coronary artery bypass graft. Left PICC line unchanged. Right chest tube is been removed. No right pneumothorax. Multiple posterior right rib fractures. IMPRESSION: Bilateral airspace consolidation unchanged to slightly increased especially on the left likely underlying pneumonia Right chest tube unchanged no pneumothorax seen multiple right rib fractures. Electronically signed by:Thai Mcclain. Transcribed by: [email or web address], User Resident: Electronically Signed by: THAI MCCLAIN @ 01/09/2018 04:49 PM Normal [facility] Comment on above: Order Comment: Yes: Add to Previous draw if able APTTon 01-08-2018 aPTT Coag time (Bld) 35.3 s High 25.0-35.[address] [facility] Comment on above: Order Comment: Yes: Add to Previous draw if able Result Comment: ALL RESULTS MUST BE INTERPRETED WITH RESPECT TO BLOOD DRAWING ARTIFACT OR DILUTION ERROR OF ANTICOAGULANT AT THE TIME OF SAMPLING. THE APTT SHOULD NOT BE USED TO MONITOR UNFRACTIONATED HEPARIN THERAPY, THIS LABORATORY NO LONGER HAS AN ESTABLISHED THERAPEUTIC RANGE BASED ON THE APTT. IT IS RECOMMENDED THAT THE UFH - HEPARIN ASSAY (ANTI-XA ACTIVITY) BE USED FOR THIS PURPOSE. Performed By: #### 5 [id number] #### [facility] [address] BASIC METABOLIC PANELon 12-13 Calcium mass conc 8.2 mg/dL Low 8.6-10.[address] [facility] Comment on above: Order Comment: Yes: Add to Previous draw if able Performed By: #### 5 0608 #### [facility] [address] [place] [address], [facility] Chloride molar conc 100 mmol/L Normal 98-[address] [facility] Comment on above: Order Comment: Yes: Add to Previous draw if able Performed By: #### 5 0608 #### [facility] [address] [place] [address], [facility] CO2 molar conc 32 mmol/L High 21-[address] [facility] Comment on above: Order Comment: Yes: Add to Previous draw if able Performed By: #### 5 0608 #### [facility] [address] [place] [address], [facility] Creatinine mass conc 0.69 mg/dL Low 0.70-1.[address] [facility] Comment on above: Order Comment: Yes: Add to Previous draw if able Performed By: #### 5 0608 #### [facility] [address] [place] [address], [place] GFR/1.73 sq M predicted among blacks MDRD vol rate/area (S/P/Bld) mL/min/{1.73_m2} Normal >[address] [facility] Comment on above: Order Comment: Yes: Add to Previous draw if able Performed By: #### 5 0608 #### [facility] [address] [place] [address], [facility] GFR/1.73 sq M predicted among non-blacks MDRD vol rate/area (S/P/Bld) mL/min/{1.73_m2} Normal >[address] [facility] Comment on above: Order Comment: Yes: Add to Previous draw if able Performed By: #### 5 0608 #### [facility] [address] [place] [address], [place] Glucose mass conc 94 mg/dL Normal 70-[address] [facility] Comment on above: Order Comment: Yes: Add to Previous draw if able Performed By: #### 5 0608 #### [facility] [address] [place] [address], [place] Potassium molar conc 4.1 mmol/L Normal 3.5-5.[address] [facility] Comment on above: Order Comment: Yes: Add to Previous draw if able Performed By: #### 5 0608 #### [facility] [address] [place] [address], [facility] Sodium molar conc 134 mmol/L Low 136-[address] [facility] Comment on above: Order Comment: Yes: Add to Previous draw if able Performed By: #### 5 0608 #### [facility] [address] [place] [address], [facility] Urea nitrogen mass conc 6 mg/dL Low 7-[address] [facility] Comment on above: Order Comment: Yes: Add to Previous draw if able Performed By: #### 5 0608 #### [facility] [address] [place] [address], [facility] BLOOD STOOL GUAIACon 018 BLD STOOL GUAIAC Positive Abnormal NEGATIVE [facility] Comment on above: Order Comment: Yes: Add to Previous draw if able Performed By: #### 5 0608 #### [facility] [address] [place] [address], [facility] HEMATOCRITon 01-08-2018 Hematocrit Volume Fraction (Bld) 25.9 % Low 39.0-50.[address] [facility] Comment on above: Order Comment: Yes: Add to Previous draw if able Performed By: #### 5 0608 #### [facility] [address] [place] [address], [facility] Hematocrit Volume Fraction (Bld) 20.7 % Low 39.0-50.[address] [facility] Comment on above: Order Comment: Yes: Add to Previous draw if able Performed By: #### 5 0608 #### [facility] [address] [place] [address], [facility] Hematocrit Volume Fraction (Bld) 22.1 % Low 39.0-50.[address] [facility] Comment on above: Order Comment: Yes: Add to Previous draw if able Performed By: #### 5 0608 #### [facility] [address] [place] [address], [facility] HEMOGLOBINon 01-08-2018 Hemoglobin mass conc (Bld) 8.5 g/dL Low 13.0-17.[address] [facility] Comment on above: Order Comment: Yes: Add to Previous draw if able Performed By: #### 5 0608 #### [facility] [address] Hemoglobin mass conc (Bld) 6.9 g/dL Low 13.0-17.[address] [facility] Comment on above: Order Comment: Yes: Add to Previous draw if able Performed By: #### 5 0608 #### [facility] [address] [facility] [address] Hemoglobin mass conc (Bld) 7.2 g/dL Low 13.0-17.[address] [facility] Comment on above: Order Comment: Yes: Add to Previous draw if able Performed By: #### 5 0608 #### [facility] [address] [facility] [place] [address], [facility] MAGNESIUM BLOODon 01-08-2018 Magnesium mass conc 1.9 mg/dL Normal 1.9-2.[address] [facility] Comment on above: Order Comment: Yes: Add to Previous draw if able Performed By: #### 5 0608 #### [facility] [address] [facility] [place] [address], [facility] PH - PLEURAL FLUIDon 018 pH (Bld) CANCELED Normal [facility] Comment on above: Order Comment: Yes: Add to Previous draw if able Result Comment: The released value 7.10 was canceled by HELEN on 01/08/2018 12:44 Performed By: #### 5 0608 #### [facility] [address] [facility] [place] [address], [facility] PHOSPHORUS BLOODon 201 8 Phosphate mass conc 2.9 mg/dL Normal 2.5-5.[address] [facility] Comment on above: Order Comment: Yes: Add to Previous draw if able Performed By: #### 5 0608 #### [facility] [address] [facility]. [address] PROTHROMBIN TIMEon 8 INR Coag RelTime (PPP) 1.38 {INR} High 0.91-1.[address] [facility] Comment on above: Order Comment: Yes: Add to Previous draw if able Result Comment: ACCC P RECOMMENDED INR FOR WARFARIN THERAPY ------- CONDITION INR PROPHYLAXIS OF VENOUS THROMBOSIS 2-3 (HIGH-RISK SURGERY) TREATMENT OF VENOUS THROMBOSIS 2-3 TREATMENT OF PULMONARY EMBOLISM 2-3 PREVENTION OF SYSTEMIC EMBOLISM: 2-3 ACUTE MYOCARDIAL INFARCTION TISSUE HEART VALVES VALVULAR HEART DISEASE ATRIAL FIBRILLATION RECURRENT SYSTEMIC EMBOLISM MECHANICAL HEART VALVE 2.5-3.5 FROM: ORAL ANTICOAGULANTS. MECHANISM OF ACTION, CLINICAL EFFECTIVENESS, AND OPTIMAL THERAPEUTIC RANGE. CHEST 1995;108:231S-246S. Performed By: #### 5 [id number] #### [facility] [address] [facility]. [address] Prothrombin time (PT) Coag time (PPP) 17.0 s High 12.3-14.[address] [facility] Comment on above: Order Comment: Yes: Add to Previous draw if able Result Comment: ALL RESULTS MUST BE INTERPRETED WITH RESPECT TO BLOOD DRAWING ARTIFACT OR DILUTION ERROR OF ANTICOAGULANT AT THE TIME OF SAMPLING. Performed By: #### 5 [id number] #### [facility] [address] BASIC METABOLIC PANELon 12-13 Calcium mass conc 8.0 mg/dL Low 8.6-10.[address] [facility] Comment on above: Order Comment: Yes: Add to Previous draw if able Performed By: #### 5 0608 #### [facility] [address] [place] [address], [place] Chloride molar conc 100 mmol/L Normal 98-[address] [facility] Comment on above: Order Comment: Yes: Add to Previous draw if able Performed By: #### 5 0608 #### [facility] [address] [place] [address], [place] CO2 molar conc 33 mmol/L High 21-[address] [facility] Comment on above: Order Comment: Yes: Add to Previous draw if able Performed By: #### 5 0608 #### [facility] [address] [place] [address], [facility] Creatinine mass conc 0.75 mg/dL Normal 0.70-1.[address] [facility] Comment on above: Order Comment: Yes: Add to Previous draw if able Performed By: #### 5 0608 #### [facility] [address] [place] [address], [place] GFR/1.73 sq M predicted among blacks MDRD vol rate/area (S/P/Bld) mL/min/{1.73_m2} Normal >[address] [facility] Comment on above: Order Comment: Yes: Add to Previous draw if able Performed By: #### 5 0608 #### [facility] [address] [place] [address], [place] GFR/1.73 sq M predicted among non-blacks MDRD vol rate/area (S/P/Bld) mL/min/{1.73_m2} Normal >[address] [facility] Comment on above: Order Comment: Yes: Add to Previous draw if able Performed By: #### 5 0608 #### [facility] [address] [place] [address], [place] Glucose mass conc 97 mg/dL Normal 70-[address] [facility] Comment on above: Order Comment: Yes: Add to Previous draw if able Performed By: #### 5 0608 #### [facility] [address] [facility] Potassium molar conc 4.1 mmol/L Normal 3.5-5.[address] [facility] Comment on above: Order Comment: Yes: Add to Previous draw if able Performed By: #### 5 0608 #### [facility] [address] [facility] [address] Sodium molar conc 132 mmol/L Low 136-[address] [facility] Comment on above: Order Comment: Yes: Add to Previous draw if able Performed By: #### 5 0608 #### [facility] [address] Urea nitrogen mass conc 8 mg/dL Normal 7-[address] [facility] Comment on above: Order Comment: Yes: Add to Previous draw if able Performed By: #### 5 0608 #### [facility] [address] [facility]. [address] CBC W/DIFFon 01-07-2018 ABS BASOPHILS 0.1 10*3/uL Normal 0.0-0.[address] [facility] Comment on above: Order Comment: Yes: Add to Previous draw if able Performed By: #### 5 0608 #### [facility] [address] [facility]. [address] ABS IMM GRANS 0.1 10*3/uL Normal 0.0-0.[address] [facility] Comment on above: Order Comment: Yes: Add to Previous draw if able Performed By: #### 5 0608 #### [facility] [address] [facility]. [address] ABS NEUTROPHILS 5.0 10*3/uL Normal 1.6-7.[address] [facility] Comment on above: Order Comment: Yes: Add to Previous draw if able Performed By: #### 5 0608 #### [facility] [address] [place] [address], [place] Basophils #/vol (Bld) 0.9 % Normal 0.0-1.[address] [facility] Comment on above: Order Comment: Yes: Add to Previous draw if able Performed By: #### 5 0608 #### [facility] [address] [place] [address], [facility] Eosinophils #/vol (Bld) 0.7 10*3/uL High 0.0-0.[address] [facility] Comment on above: Order Comment: Yes: Add to Previous draw if able Performed By: #### 5 0608 #### [facility] [address] [place] [address], [facility] Eosinophils/100 WBC (Bld) 8.5 % High 0.0-6.[address] [facility] Comment on above: Order Comment: Yes: Add to Previous draw if able Performed By: #### 5 0608 #### [facility] [address] Erythrocyte distribution width Ratio (RBC) 14.7 % Normal 11.5-15.[address] [facility] Comment on above: Order Comment: Yes: Add to Previous draw if able Performed By: #### 5 0608 #### [facility] [address] [facility] [address] Hematocrit Volume Fraction (Bld) 22.5 % Low 39.0-50.[address] [facility] Comment on above: Order Comment: Yes: Add to Previous draw if able Performed By: #### 5 0608 #### [facility] [address] Hemoglobin mass conc (Bld) 7.3 g/dL Low 13.0-17.[address] [facility] Comment on above: Order Comment: Yes: Add to Previous draw if able Performed By: #### 5 0608 #### [facility] [address] [place] [address], [facility] IMMATURE GRANS 1.0 % Normal 0.0-1.[address] [facility] Comment on above: Order Comment: Yes: Add to Previous draw if able Performed By: #### 5 0608 #### [facility] [address] [place] [address], [facility] Lymphocytes #/vol (Bld) 0.7 10*3/uL Low 1.2-4.[address] [facility] Comment on above: Order Comment: Yes: Add to Previous draw if able Performed By: #### 5 0608 #### [facility] [address] [facility] [address], [facility] Lymphocytes/100 WBC (Bld) 9.0 % Low 20.0-45.[address] [facility] Comment on above: Order Comment: Yes: Add to Previous draw if able Performed By: #### 5 0608 #### [facility] [address] [facility] MCH Entitic mass (RBC) 30.4 pg Normal 27.0-33.[address] [facility] Comment on above: Order Comment: Yes: Add to Previous draw if able Performed By: #### 5 0608 #### [facility] [address] MCHC mass conc (RBC) 32.4 g/dL Normal 32.0-35.[address] [facility] Comment on above: Order Comment: Yes: Add to Previous draw if able Performed By: #### 5 0608 #### [facility] [address] MCV Entitic volume (RBC) 93.8 fL Normal 82.0-98.[address] [facility] Comment on above: Order Comment: Yes: Add to Previous draw if able Performed By: #### 5 0608 #### [facility] [address] [facility] [address], [facility] Monocytes #/vol (Bld) 1.2 10*3/uL High 0.1-1.[address] [facility] Comment on above: Order Comment: Yes: Add to Previous draw if able Performed By: #### 5 0608 #### [facility] [address] [place] [address], [facility] MONOS 16.0 % High 5.0-12.[address] [facility] Comment on above: Order Comment: Yes: Add to Previous draw if able Performed By: #### 5 0608 #### [facility] [address] [place] [address], [facility] Neutrophils/100 WBC (Bld) 64.6 % Normal 40.0-72.[address] [facility] Comment on above: Order Comment: Yes: Add to Previous draw if able Performed By: #### 5 0608 #### [facility] [address] [place] [address], [facility] Nucleated RBC/100 WBC Ratio (Bld) 0 % Normal 0-[address] [facility] Comment on above: Order Comment: Yes: Add to Previous draw if able Performed By: #### 5 0608 #### [facility] [address] [place] [address], [facility] PLAT CNT 305 10*3/uL Normal 150-[address] [facility] Comment on above: Order Comment: Yes: Add to Previous draw if able Performed By: #### 5 0608 #### [facility] [address] [place] [address], [facility] RBC #/vol (Bld) 2.40 10*6/uL Low 4.20-5.[address] [facility] Comment on above: Order Comment: Yes: Add to Previous draw if able Performed By: #### 5 0608 #### [facility] [address] [place] [address], [facility] WBC #/vol (Bld) 7.77 10*3/uL Normal 4.00-10.[address] [facility] Comment on above: Order Comment: Yes: Add to Previous draw if able Performed By: #### 5 0608 #### [facility] [address] [place] [address], [facility] HEMATOCRITon 01-07-2018 Hematocrit Volume Fraction (Bld) 23.9 % Low 39.0-50.[address] [facility] Comment on above: Order Comment: Yes: Add to Previous draw if able Performed By: #### 5 0608 #### [facility] [address] [place] [address], [facility] Hematocrit Volume Fraction (Bld) 21.9 % Low 39.0-50.[address] [facility] Comment on above: Order Comment: Yes: Add to Previous draw if able Performed By: #### 5 0608 #### [facility] [address] [place] [address], [facility] HEMOGLOBINon 01-07-2018 Hemoglobin mass conc (Bld) 7.7 g/dL Low 13.0-17.[address] [facility] Comment on above: Order Comment: Yes: Add to Previous draw if able Performed By: #### 5 0608 #### [facility] [address] [place] [address], [facility] Hemoglobin mass conc (Bld) 7.2 g/dL Low 13.0-17.[address] [facility] Comment on above: Order Comment: Yes: Add to Previous draw if able Performed By: #### 5 0608 #### [facility] [address] [facility] [address], [facility] MAGNESIUM BLOODon 01-07-2018 Magnesium mass conc 1.6 mg/dL Low 1.9-2.[address] [facility] Comment on above: Order Comment: Yes: Add to Previous draw if able Performed By: #### 5 0608 #### [facility] [address] [facility] [place] [address], [facility] PHOSPHORUS BLOODon 8 Phosphate mass conc 2.9 mg/dL Normal 2.5-5.[address] [facility] Comment on above: Order Comment: Yes: Add to Previous draw if able Performed By: #### 5 0608 #### [id number] [place] [address] PORTABLE CHEST 1 VIEWon 12-13 PORTABLE CHEST 1 VIEW [facility] Department of Radiology [address] [place] [id number] ======== Patient Name: MELBA LEVY : 1955 Sex: M Age: Race: White Pt. Location: [id number] Patient Status: I Ordered Date: 01/07/2018 5:00:00 AM Completed Date: 01/07/2018 08:01 AM Requesting Provider: TREVA DEL ANGEL Attending Provider: MELODY CHISHOLM Report Copy To: Signs & Symptoms: O2 Desaturation History: Patient history not available Comments: R/O Atelectasis Exam: PORTABLE CHEST 1 VIEW ======== PORTABLE CHEST 1 VIEW 01/07/2018 8:01 AM EDT SIGNS AND SYMPTOMS: O2 Desaturation TECHNOLOGIST COMMENTS: sob rt chest tube QUESTION FOR THE RADIOLOGIST: R/O Atelectasis PROTOCOL: AP(PA) view was obtained. COMPARISON: January 04, 2018 FINDINGS: Unchanged bilateral infiltrates, pleural reaction, chest tube and small pneumothorax IMPRESSION: No change in the bilateral infiltrates and pleural reaction, and no change in the right-sided chest tubes or small pneumothorax Electronically signed by:Toby Niño. Transcribed by: [email or web address], User Resident: Electronically Signed by: TOBY NIÑO @ 01/07/2018 01:31 PM Normal [facility] Comment on above: Order Comment: Yes: Add to Previous draw if able BASIC METABOLIC PANELon 06-2 Calcium mass conc 7.8 mg/dL Low 8.6-10.[address] [facility] Comment on above: Order Comment: Yes: Add to Previous draw if able Performed By: #### 5 [id number] #### [facility] [address] [place] [address], [place] Chloride molar conc 102 mmol/L Normal 98-[address] [facility] Comment on above: Order Comment: Yes: Add to Previous draw if able Performed By: #### 5 0608 #### [facility] [address] [place] [address], [place] CO2 molar conc 32 mmol/L High 21-[address] [facility] Comment on above: Order Comment: Yes: Add to Previous draw if able Performed By: #### 5 0608 #### [facility] [address] [place] [address], [place] Creatinine mass conc 0.73 mg/dL Normal 0.70-1.[address] [facility] Comment on above: Order Comment: Yes: Add to Previous draw if able Performed By: #### 5 0608 #### [facility] [address] [place] [address], [place] GFR/1.73 sq M predicted among blacks MDRD vol rate/area (S/P/Bld) mL/min/{1.73_m2} Normal >[address] [facility] Comment on above: Order Comment: Yes: Add to Previous draw if able Performed By: #### 5 0608 #### [facility] [address] [place] [address], [place] GFR/1.73 sq M predicted among non-blacks MDRD vol rate/area (S/P/Bld) mL/min/{1.73_m2} Normal >[address] [facility] Comment on above: Order Comment: Yes: Add to Previous draw if able Performed By: #### 5 0608 #### [facility] [address] [place] [address], [facility] Glucose mass conc 95 mg/dL Normal 70-[address] [facility] Comment on above: Order Comment: Yes: Add to Previous draw if able Performed By: #### 5 0608 #### [facility] [address] [place] [address], [facility] Potassium molar conc 4.1 mmol/L Normal 3.5-5.[address] [facility] Comment on above: Order Comment: Yes: Add to Previous draw if able Performed By: #### 5 0608 #### [facility] [address] [place] [address], [facility] Sodium molar conc 134 mmol/L Low 136-[address] [facility] Comment on above: Order Comment: Yes: Add to Previous draw if able Performed By: #### 5 0608 #### [facility] [address] [place] [address], [facility] Urea nitrogen mass conc 11 mg/dL Normal 7-[address] [facility] Comment on above: Order Comment: Yes: Add to Previous draw if able Performed By: #### 5 0608 #### [facility] [address] BLOOD STOOL GUAIACon 018 BLD STOOL GUAIAC Positive Abnormal NEGATIVE [facility] Comment on above: Order Comment: Yes: Add to Previous draw if able Performed By: #### 5 0608 #### [facility] [address] CBC COMPLETE BLOOD COUNTon 0 01-06-2018 Erythrocyte distribution width Ratio (RBC) 14.7 % Normal 11.5-15.[address] [facility] Comment on above: Order Comment: Yes: Add to Previous draw if able Performed By: #### 5 0608 #### [facility] [address] Hematocrit Volume Fraction (Bld) 22.8 % Low 39.0-50.[address] [facility] Comment on above: Order Comment: Yes: Add to Previous draw if able Performed By: #### 5 0608 #### [facility] [address] Hemoglobin mass conc (Bld) 7.7 g/dL Low 13.0-17.[address] [facility] Comment on above: Order Comment: Yes: Add to Previous draw if able Performed By: #### 5 0608 #### [facility] [address] [facility]. [address] MCH Entitic mass (RBC) 31.2 pg Normal 27.0-33.[address] [facility] Comment on above: Order Comment: Yes: Add to Previous draw if able Performed By: #### 5 0608 #### [facility] [address] MCHC mass conc (RBC) 33.8 g/dL Normal 32.0-35.[address] [facility] Comment on above: Order Comment: Yes: Add to Previous draw if able Performed By: #### 5 0608 #### [facility] [address] MCV Entitic volume (RBC) 92.3 fL Normal 82.0-98.[address] [facility] Comment on above: Order Comment: Yes: Add to Previous draw if able Performed By: #### 5 0608 #### [facility] [address] Nucleated RBC/100 WBC Ratio (Bld) 0 % Normal 0-[address] [facility] Comment on above: Order Comment: Yes: Add to Previous draw if able Performed By: #### 5 0608 #### [facility] [address] PLAT CNT 276 10*3/uL Normal 150-[address] [facility] Comment on above: Order Comment: Yes: Add to Previous draw if able Performed By: #### 5 0608 #### [facility] [address] [place] [address], [facility] RBC #/vol (Bld) 2.47 10*6/uL Low 4.20-5.[address] [facility] Comment on above: Order Comment: Yes: Add to Previous draw if able Performed By: #### 5 0608 #### [facility] [address] [place] [address], [facility] WBC #/vol (Bld) 8.12 10*3/uL Normal 4.00-10.[address] [facility] Comment on above: Order Comment: Yes: Add to Previous draw if able Performed By: #### 5 0608 #### [facility] [address] [place] [address], [facility] BASIC METABOLIC PANELon 06-2 Calcium mass conc 8.1 mg/dL Low 8.6-10.[address] [facility] Comment on above: Order Comment: Yes: Add to Previous draw if able Performed By: #### 5 0608 #### [facility] [address] [place] [address], [facility] Chloride molar conc 102 mmol/L Normal 98-[address] [facility] Comment on above: Order Comment: Yes: Add to Previous draw if able Performed By: #### 5 0608 #### [facility] [address] [place] [address], [facility] CO2 molar conc 33 mmol/L High 21-[address] [facility] Comment on above: Order Comment: Yes: Add to Previous draw if able Performed By: #### 5 0608 #### [facility] [address] [place] [address], [facility] Creatinine mass conc 0.81 mg/dL Normal 0.70-1.[address] [facility] Comment on above: Order Comment: Yes: Add to Previous draw if able Performed By: #### 5 0608 #### [facility] [address] [place] [id number], [facility] GFR/1.73 sq M predicted among blacks MDRD vol rate/area (S/P/Bld) mL/min/{1.73_m2} Normal >[address] [facility] Comment on above: Order Comment: Yes: Add to Previous draw if able Performed By: #### 5 0608 #### [facility] [address] [place] [address], [facility] GFR/1.73 sq M predicted among non-blacks MDRD vol rate/area (S/P/Bld) mL/min/{1.73_m2} Normal >[address] [facility] Comment on above: Order Comment: Yes: Add to Previous draw if able Performed By: #### 5 0608 #### [facility] [address] [place] [address], [facility] Glucose mass conc 106 mg/dL High 70-[address] [facility] Comment on above: Order Comment: Yes: Add to Previous draw if able Performed By: #### 5 0608 #### [facility] [address] [place] [address], [place] Potassium molar conc 4.1 mmol/L Normal 3.5-5.[address] [facility] Comment on above: Order Comment: Yes: Add to Previous draw if able Performed By: #### 5 0608 #### [facility] [address] [place] [address], [place] Sodium molar conc 135 mmol/L Low 136-[address] [facility] Comment on above: Order Comment: Yes: Add to Previous draw if able Performed By: #### 5 0608 #### [facility] [address] [place] [address], [place] Urea nitrogen mass conc 13 mg/dL Normal 7-[address] [facility] Comment on above: Order Comment: Yes: Add to Previous draw if able Performed By: #### 5 0608 #### [facility] [address] [place] [address], [place] CBC COMPLETE BLOOD COUNTon 0 01-05-2018 Erythrocyte distribution width Ratio (RBC) 14.5 % Normal 11.5-15.[address] [facility] Comment on above: Order Comment: Yes: Add to Previous draw if able Performed By: #### 5 0608 #### [facility] [address] [place] [address], [facility] Hematocrit Volume Fraction (Bld) 21.3 % Low 39.0-50.[address] [facility] Comment on above: Order Comment: Yes: Add to Previous draw if able Performed By: #### 5 0608 #### [facility] [address] [place] [address], [facility] Hemoglobin mass conc (Bld) 6.9 g/dL Low 13.0-17.[address] [facility] Comment on above: Order Comment: Yes: Add to Previous draw if able Performed By: #### 5 0608 #### [facility] [address] [place] [address], [facility] MCH Entitic mass (RBC) 30.4 pg Normal 27.0-33.[address] [facility] Comment on above: Order Comment: Yes: Add to Previous draw if able Performed By: #### 5 0608 #### [facility] [address] [place] [address], [facility] MCHC mass conc (RBC) 32.4 g/dL Normal 32.0-35.[address] [facility] Comment on above: Order Comment: Yes: Add to Previous draw if able Performed By: #### 5 0608 #### [facility] [address] [place] [address], [facility] MCV Entitic volume (RBC) 93.8 fL Normal 82.0-98.[address] [facility] Comment on above: Order Comment: Yes: Add to Previous draw if able Performed By: #### 5 0608 #### [facility] [address] [place] [address], [facility] Nucleated RBC/100 WBC Ratio (Bld) 0 % Normal 0-[address] [facility] Comment on above: Order Comment: Yes: Add to Previous draw if able Performed By: #### 5 0608 #### [facility] [address] [place] [address], [facility] PLAT CNT 265 10*3/uL Normal 150-[address] [facility] Comment on above: Order Comment: Yes: Add to Previous draw if able Performed By: #### 5 0608 #### [facility] [address] [place] [address], [facility] RBC #/vol (Bld) 2.27 10*6/uL Low 4.20-5.[address] [facility] Comment on above: Order Comment: Yes: Add to Previous draw if able Performed By: #### 5 0608 #### [facility] [address] [place] [address], [facility] WBC #/vol (Bld) 7.79 10*3/uL Normal 4.00-10.[address] [facility] Comment on above: Order Comment: Yes: Add to Previous draw if able Performed By: #### 5 0608 #### [facility] [address] HEMATOCRITon 01-05-2018 Hematocrit Volume Fraction (Bld) 24.9 % Low 39.0-50.[address] [facility] Comment on above: Order Comment: Yes: Add to Previous draw if able Performed By: #### 5 0608 #### [facility] [address] HEMOGLOBINon 01-05-2018 Hemoglobin mass conc (Bld) 8.3 g/dL Low 13.0-17.[address] [facility] Comment on above: Order Comment: Yes: Add to Previous draw if able Performed By: #### 5 0608 #### [facility] [address] [place] [address], [facility] RBC'S 1 UNITon 01-05-2018 CROSSMATCH INTERP 1 COMP Normal [facility] Comment on above: Performed By: #### 5 0608 #### [facility] [address] [place] [address], [facility] Protein mass conc PT Normal [facility] Comment on above: Result Comment: Resu lt changed by IF on 01/05/2018 09:55. The previous value was XM. Result changed by IF on 01/07/2018 02:00. The previous value was IS. Performed By: #### 5 0608 #### [facility] [address] [place] [address], [facility] Protein mass conc 336 g/dL Normal [facility] Comment on above: Performed By: #### 5 0608 #### [facility] [address] [place] [address], [facility] UNIT ABO 1 O Normal [facility] Comment on above: Performed By: #### 5 0608 #### [facility] [address] [place] [address], [facility] UNIT ID 1 [id number] Normal [facility] Comment on above: Performed By: #### 5 0608 #### [facility] [address] [place] [address], [facility] UNIT RH 1 Negative Normal [facility] Comment on above: Performed By: #### 5 0608 #### [facility] [address] [place] [address], [facility] RBC'S 2 UNITSon 01-05-2018 CROSSMATCH INTERP 1 COMP Normal [facility] Comment on above: Order Comment: Yes: Add to Previous draw if able Performed By: #### 5 0608 #### [facility] [address] [place] [address], [facility] CROSSMATCH INTERP 2 COMP Normal [facility] Comment on above: Order Comment: Yes: Add to Previous draw if able Performed By: #### 5 0608 #### [facility] [address] [place] [address], [facility] Protein mass conc 336 g/dL Normal [facility] Comment on above: Order Comment: Yes: Add to Previous draw if able Performed By: #### 5 0608 #### [facility] [address] [place] [address], [place] Protein mass conc RE Normal [facility] Comment on above: Order Comment: Yes: Add to Previous draw if able Result Comment: Resu lt changed by IF on 01/09/2018 06:52. The previous value was XM. Performed By: #### 5 0608 #### [facility] [address] [place] [address], [place] Protein mass conc PT Normal [facility] Comment on above: Order Comment: Yes: Add to Previous draw if able Result Comment: Resu lt changed by IF on 01/08/2018 08:29. The previous value was XM. Result changed by IF on 01/10/2018 02:00. The previous value was IS. Performed By: #### 5 0608 #### [facility] [address] [place] [address], [facility] UNIT ABO 1 O Normal [facility] Comment on above: Order Comment: Yes: Add to Previous draw if able Performed By: #### 5 0608 #### [facility] [address] [place] [address], [place] UNIT ABO 2 O Normal [facility] Comment on above: Order Comment: Yes: Add to Previous draw if able Performed By: #### 5 0608 #### [facility] [address] [place] [address], [facility] UNIT ID 1 [id number] Normal [facility] Comment on above: Order Comment: Yes: Add to Previous draw if able Performed By: #### 5 0608 #### [facility] [address] [place] [address], [place] UNIT ID 2 [id number] Normal [address] [facility] Comment on above: Order Comment: Yes: Add to Previous draw if able Performed By: #### 5 0608 #### [facility] [address] [place] [address], [facility] UNIT RH 1 Positive Normal [facility] Comment on above: Order Comment: Yes: Add to Previous draw if able Performed By: #### 5 0608 #### [facility] [address] [place] [address], [facility] UNIT RH 2 Positive Normal [facility] Comment on above: Order Comment: Yes: Add to Previous draw if able Performed By: #### 5 0608 #### [facility] [address] [place] [address], [facility] TYPE AND SCREENon 01-05-2018 ABO INTERPRETATION O Normal [facility] Comment on above: Order Comment: Yes: Add to Previous draw if able Performed By: #### 5 0608 #### [facility] [address] [place] [address], [facility] RH INTERPRETATION Positive Normal [facility] Comment on above: Order Comment: Yes: Add to Previous draw if able Performed By: #### 5 0608 #### [facility] [address] [place] [address], [facility] BASIC METABOLIC PANELon 12-13 Calcium mass conc 8.2 mg/dL Low 8.6-10.[address] [facility] Comment on above: Order Comment: Yes: Add to Previous draw if able Performed By: #### 5 0608 #### [facility] [address] [place] [address], [facility] Chloride molar conc 102 mmol/L Normal 98-[address] [facility] Comment on above: Order Comment: Yes: Add to Previous draw if able Performed By: #### 5 0608 #### [facility] [address] [place] [address], [facility] CO2 molar conc 30 mmol/L Normal 21-[address] [facility] Comment on above: Order Comment: Yes: Add to Previous draw if able Performed By: #### 5 0608 #### [facility] [address] [place] [address], [facility] Creatinine mass conc 0.89 mg/dL Normal 0.70-1.[address] [facility] Comment on above: Order Comment: Yes: Add to Previous draw if able Performed By: #### 5 0608 #### [facility] [address] [place] [address], [place] GFR/1.73 sq M predicted among blacks MDRD vol rate/area (S/P/Bld) mL/min/{1.73_m2} Normal >[address] [facility] Comment on above: Order Comment: Yes: Add to Previous draw if able Performed By: #### 5 0608 #### [facility] [address] [place] [address], [facility] GFR/1.73 sq M predicted among non-blacks MDRD vol rate/area (S/P/Bld) mL/min/{1.73_m2} Normal >[address] [facility] Comment on above: Order Comment: Yes: Add to Previous draw if able Performed By: #### 5 0608 #### [facility] [address] [place] [address], [facility] Glucose mass conc 78 mg/dL Normal 70-[address] [facility] Comment on above: Order Comment: Yes: Add to Previous draw if able Performed By: #### 5 0608 #### [facility] [address] [place] [address], [place] Potassium molar conc 4.4 mmol/L Normal 3.5-5.[address] [facility] Comment on above: Order Comment: Yes: Add to Previous draw if able Performed By: #### 5 0608 #### [facility] [address] [place] [address], [place] Sodium molar conc 136 mmol/L Normal 136-[address] [facility] Comment on above: Order Comment: Yes: Add to Previous draw if able Performed By: #### 5 0608 #### [facility] [address] [place] [address], [facility] Urea nitrogen mass conc 15 mg/dL Normal 7-[address] [facility] Comment on above: Order Comment: Yes: Add to Previous draw if able Performed By: #### 5 0608 #### [facility] [address] CBC COMPLETE BLOOD COUNTon - Erythrocyte distribution width Ratio (RBC) 14.6 % Normal 11.5-15.0 [facility] Comment on above: Order Comment: Yes: Add to Previous draw if able Performed By: #### 5 0608 #### [facility] [address] Hematocrit Volume Fraction (Bld) 23.3 % Low 39.0-50.[address] [facility] Comment on above: Order Comment: Yes: Add to Previous draw if able Performed By: #### 5 0608 #### [facility] [address] Hemoglobin mass conc (Bld) 7.7 g/dL Low 13.0-17.[address] [facility] Comment on above: Order Comment: Yes: Add to Previous draw if able Performed By: #### 5 0608 #### [facility] [address] [place] [address], [facility] MCH Entitic mass (RBC) 30.7 pg Normal 27.0-33.[address] [facility] Comment on above: Order Comment: Yes: Add to Previous draw if able Performed By: #### 5 0608 #### [facility] [address] [place] [id number], [facility] MCHC mass conc (RBC) 33.0 g/dL Normal 32.0-35.0 [facility] Comment on above: Order Comment: Yes: Add to Previous draw if able Performed By: #### 5 0608 #### [facility] [address] [facility]. [address] MCV Entitic volume (RBC) 92.8 fL Normal 82.0-98.[address] [facility] Comment on above: Order Comment: Yes: Add to Previous draw if able Performed By: #### 5 0608 #### [facility] [address] [place] [address], [facility] Nucleated RBC/100 WBC Ratio (Bld) 0 % Normal 0-[address] [facility] Comment on above: Order Comment: Yes: Add to Previous draw if able Performed By: #### 5 0608 #### [facility] [address] [place] [address], [facility] PLAT CNT 253 10*3/uL Normal 150-[address] [facility] Comment on above: Order Comment: Yes: Add to Previous draw if able Performed By: #### 5 0608 #### [facility] [address] [facility]. [address] RBC #/vol (Bld) 2.51 10*6/uL Low 4.20-5.[address] [facility] Comment on above: Order Comment: Yes: Add to Previous draw if able Performed By: #### 5 0608 #### [facility] [address] [facility]. [address] WBC #/vol (Bld) 7.27 10*3/uL Normal 4.00-10.[address] [facility] Comment on above: Order Comment: Yes: Add to Previous draw if able Performed By: #### 5 0608 #### [facility] [address] PORTABLE CHEST 1 VIEWon 12-13 PORTABLE CHEST 1 VIEW [facility] Department of Radiology [address] [place] [id number] ======== Patient Name: MELBA LEVY : 1955 Sex: M Age: Race: White Pt. Location: [id number] Patient Status: I Ordered Date: 01/04/2018 6:25:00 AM Completed Date: 01/04/2018 07:13 AM Requesting Provider: TREVA DEL ANGEL Attending Provider: MELODY CHISHOLM Report Copy To: Signs & Symptoms: Chest Pain History: Patient history not available Comments: R/O Pneumothorax Exam: PORTABLE CHEST 1 VIEW ======== PORTABLE CHEST 1 VIEW 01/04/2018 7:13 AM EDT SIGNS AND SYMPTOMS: Chest Pain TECHNOLOGIST COMMENTS: check for Pneumothorax per ordering Dr. QUESTION FOR THE RADIOLOGIST: R/O Pneumothorax PROTOCOL: AP(PA) view was obtained. COMPARISON: January 03, 2018 FINDINGS: Sternotomy wires noted. Unchanged right 2 chest tubes with no small right apical pneumothorax. Multiple right fractured ribs again noted. Trachea is in the midline. Cardiac mediastinal silhouette unchanged. Small bilateral pleural effusion. Airspace disease involving bilateral mid/lower lungs, slightly increased since the prior exam. IMPRESSION: Small right apical pneumothorax, unchanged. Airspace disease involving bilateral mid/lower lungs, slightly increased since the prior exam. Approved by:Claus Clark on 01/04/2018 7:35 AM EDT. I, Breonna Mariano, have reviewed the images and report and concur with these findings. Electronically signed by:Breonna Mariano. Transcribed by: [email or web address], User Resident: CLAUS CLARK Electronically Signed by: BREONNA MARIANO @ 01/04/2018 02:18 PM I personally read this/these film(s) with this resident Normal [facility] Comment on above: Order Comment: Yes: Add to Previous draw if able BASIC METABOLIC PANELon 06-2 Calcium mass conc 8.5 mg/dL Low 8.6-10.[address] [facility] Comment on above: Order Comment: Yes: Add to Previous draw if able Performed By: #### 5 0608 #### [facility] [address] [place] [address], [place] Chloride molar conc 104 mmol/L Normal 98-[address] [facility] Comment on above: Order Comment: Yes: Add to Previous draw if able Performed By: #### 5 0608 #### [facility] [address] [place] [address], [place] CO2 molar conc 30 mmol/L Normal 21-[address] [facility] Comment on above: Order Comment: Yes: Add to Previous draw if able Performed By: #### 5 0608 #### [facility] [address] [place] [address], [place] Creatinine mass conc 1.06 mg/dL Normal 0.70-1.[address] [facility] Comment on above: Order Comment: Yes: Add to Previous draw if able Performed By: #### 5 0608 #### [facility] [address] [place] [address], [place] GFR/1.73 sq M predicted among blacks MDRD vol rate/area (S/P/Bld) mL/min/{1.73_m2} Normal >[address] [facility] Comment on above: Order Comment: Yes: Add to Previous draw if able Performed By: #### 5 0608 #### [facility] [address] [place] [address], [place] GFR/1.73 sq M predicted among non-blacks MDRD vol rate/area (S/P/Bld) mL/min/{1.73_m2} Normal >[address] [facility] Comment on above: Order Comment: Yes: Add to Previous draw if able Performed By: #### 5 0608 #### [facility] [address] [place] [address], [facility] Glucose mass conc 98 mg/dL Normal 70-[address] [facility] Comment on above: Order Comment: Yes: Add to Previous draw if able Performed By: #### 5 0608 #### [facility] [address] [place] [address], [facility] Potassium molar conc 4.1 mmol/L Normal 3.5-5.[address] [facility] Comment on above: Order Comment: Yes: Add to Previous draw if able Performed By: #### 5 0608 #### [facility] [address] [place] [address], [facility] Sodium molar conc 136 mmol/L Normal 136-[address] [facility] Comment on above: Order Comment: Yes: Add to Previous draw if able Performed By: #### 5 0608 #### [facility] [address] [place] [id number], [facility] Urea nitrogen mass conc 18 mg/dL Normal 7-25 [facility] Comment on above: Order Comment: Yes: Add to Previous draw if able Performed By: #### 5 0608 #### [facility] [address] [place] [address], [facility] CBC COMPLETE BLOOD COUNTon 0 01-03-2018 Erythrocyte distribution width Ratio (RBC) 14.6 % Normal 11.5-15.[address] [facility] Comment on above: Order Comment: Yes: Add to Previous draw if able Performed By: #### 5 0608 #### [facility] [address] [place] [address], [facility] Hematocrit Volume Fraction (Bld) 24.2 % Low 39.0-50.[address] [facility] Comment on above: Order Comment: Yes: Add to Previous draw if able Performed By: #### 5 0608 #### [facility] [address] [place] [address], [facility] Hemoglobin mass conc (Bld) 7.9 g/dL Low 13.0-17.[address] [facility] Comment on above: Order Comment: Yes: Add to Previous draw if able Performed By: #### 5 0608 #### [facility] [address] MCH Entitic mass (RBC) 30.5 pg Normal 27.0-33.[address] [facility] Comment on above: Order Comment: Yes: Add to Previous draw if able Performed By: #### 5 0608 #### [facility] [address] MCHC mass conc (RBC) 32.6 g/dL Normal 32.0-35.[address] [facility] Comment on above: Order Comment: Yes: Add to Previous draw if able Performed By: #### 5 0608 #### [facility] [address] MCV Entitic volume (RBC) 93.4 fL Normal 82.0-98.[address] [facility] Comment on above: Order Comment: Yes: Add to Previous draw if able Performed By: #### 5 0608 #### [facility] [address] Nucleated RBC/100 WBC Ratio (Bld) 0 % Normal 0-[address] [facility] Comment on above: Order Comment: Yes: Add to Previous draw if able Performed By: #### 5 0608 #### [facility] [address] [place] [address], [facility] PLAT CNT 280 10*3/uL Normal 150-[address] [facility] Comment on above: Order Comment: Yes: Add to Previous draw if able Performed By: #### 5 0608 #### [facility] [address] RBC #/vol (Bld) 2.59 10*6/uL Low 4.20-5.[address] [facility] Comment on above: Order Comment: Yes: Add to Previous draw if able Performed By: #### 5 0608 #### [address] WBC #/vol (Bld) 6.55 10*3/uL Normal 4.00-10.[address] [facility] Comment on above: Order Comment: Yes: Add to Previous draw if able Performed By: #### 5 0608 #### [address] MAGNESIUM BLOODon 01-03-2018 Magnesium mass conc 2.1 mg/dL Normal 1.9-2.[address] [facility] Comment on above: Order Comment: Yes: Add to Previous draw if able Performed By: #### 5 0608 #### [address] PORTABLE CHEST 1 VIEWon 12-13 PORTABLE CHEST 1 VIEW [facility] Department of Radiology [address] [place] [id number] ======== Patient Name: MELBA LEVY : 1955 Sex: M Age: Race: White Pt. Location: [address] [place] [address] Patient Status: I Ordered Date: 01/03/2018 5:00:00 AM Completed Date: 01/03/2018 07:44 AM Requesting Provider: ERICK UGARTE Attending Provider: MELODY CHISHOLM Report Copy To: Signs & Symptoms: O2 Desaturation History: Patient history not available Comments: R/O Infiltrates Exam: PORTABLE CHEST 1 VIEW ======== PORTABLE CHEST 1 VIEW 01/03/2018 7:44 AM EDT SIGNS AND SYMPTOMS: O2 Desaturation TECHNOLOGIST COMMENTS: O2 desaturation QUESTION FOR THE RADIOLOGIST: R/O Infiltrates PROTOCOL: AP(PA) view was obtained. COMPARISON: January 02, 2018 FINDINGS: Trachea is in the midline. Sternotomy wires unchanged. Multiple surgical clips noted overlying the cardiac shadow. Obliteration of bilateral costophrenic angles, similar to prior exam. Slightly improved right midlung airspace disease. Chest tubes noted. Increased bronchovascular marking suggesting decompensated heart failure. IMPRESSION: 1. Increased bronchovascular marking suggesting compressive failure. 2. Slightly improved airspace disease in the right midlung. 3. Slightly worsening airspace disease in the left midlung. Approved by:Claus Clark on 01/03/2018 8:13 AM EDT. I, Breonna Mariano, have reviewed the images and report and concur with these findings. Electronically signed by:Breonna Mariano. Transcribed by: [email or web address], User Resident: CLAUS CLARK Electronically Signed by: BREONNA MARIANO @ 01/04/2018 03:57 PM I personally read this/these film(s) with this resident Normal [facility] Comment on above: Order Comment: Yes: Add to Previous draw if able BASIC METABOLIC PANELon 12-13 Calcium mass conc 8.7 mg/dL Normal 8.6-10.[address] [facility] Comment on above: Order Comment: Yes: Add to Previous draw if able Performed By: #### 5 0608 #### [facility] [address] [place] [address], [place] Chloride molar conc 104 mmol/L Normal 98-[address] [facility] Comment on above: Order Comment: Yes: Add to Previous draw if able Performed By: #### 5 0608 #### [facility] [address] [place] [address], [place] CO2 molar conc 31 mmol/L Normal 21-[address] [facility] Comment on above: Order Comment: Yes: Add to Previous draw if able Performed By: #### 5 0608 #### [facility] [address] [place] [address], [facility] Creatinine mass conc 1.10 mg/dL Normal 0.70-1.[address] [facility] Comment on above: Order Comment: Yes: Add to Previous draw if able Performed By: #### 5 0608 #### [facility] [address] [place] [address], [place] GFR/1.73 sq M predicted among blacks MDRD vol rate/area (S/P/Bld) mL/min/{1.73_m2} Normal >[address] [facility] Comment on above: Order Comment: Yes: Add to Previous draw if able Performed By: #### 5 0608 #### [facility] [address] [place] [address], [facility] GFR/1.73 sq M predicted among non-blacks MDRD vol rate/area (S/P/Bld) mL/min/{1.73_m2} Normal >[address] [facility] Comment on above: Order Comment: Yes: Add to Previous draw if able Performed By: #### 5 0608 #### [facility] [address] [place] [address], [facility] Glucose mass conc 92 mg/dL Normal 70-[address] [facility] Comment on above: Order Comment: Yes: Add to Previous draw if able Performed By: #### 5 0608 #### [facility] [address] [place] [address], [facility] Potassium molar conc 3.8 mmol/L Normal 3.5-5.[address] [facility] Comment on above: Order Comment: Yes: Add to Previous draw if able Performed By: #### 5 0608 #### [facility] [address] [place] [address], [place] Sodium molar conc 139 mmol/L Normal 136-[address] [facility] Comment on above: Order Comment: Yes: Add to Previous draw if able Performed By: #### 5 0608 #### [facility] [address] [place] [address], [facility] Urea nitrogen mass conc 19 mg/dL Normal 7-[address] [facility] Comment on above: Order Comment: Yes: Add to Previous draw if able Performed By: #### 5 0608 #### [facility] [address] [place] [address], [facility] CBC COMPLETE BLOOD COUNTon - Erythrocyte distribution width Ratio (RBC) 14.6 % Normal 11.5-15.0 [facility] Comment on above: Order Comment: Yes: Add to Previous draw if able Performed By: #### 5 0608 #### [facility] [address] [place] [address], [facility] Hematocrit Volume Fraction (Bld) 28.6 % Low 39.0-50.[address] [facility] Comment on above: Order Comment: Yes: Add to Previous draw if able Performed By: #### 5 0608 #### [facility] [address] [place] [address], [facility] Hemoglobin mass conc (Bld) 9.4 g/dL Low 13.0-17.[address] [facility] Comment on above: Order Comment: Yes: Add to Previous draw if able Performed By: #### 5 0608 #### [facility] [address] [place] [address], [facility] MCH Entitic mass (RBC) 30.6 pg Normal 27.0-33.[address] [facility] Comment on above: Order Comment: Yes: Add to Previous draw if able Performed By: #### 5 0608 #### [facility] [address] [place] [id number], [facility] MCHC mass conc (RBC) 32.9 g/dL Normal 32.0-35.[address] [facility] Comment on above: Order Comment: Yes: Add to Previous draw if able Performed By: #### 5 0608 #### [facility] [address] MCV Entitic volume (RBC) 93.2 fL Normal 82.0-98.[address] [facility] Comment on above: Order Comment: Yes: Add to Previous draw if able Performed By: #### 5 0608 #### [facility] [address] [place] [address], [facility] Nucleated RBC/100 WBC Ratio (Bld) 0 % Normal 0-[address] [facility] Comment on above: Order Comment: Yes: Add to Previous draw if able Performed By: #### 5 0608 #### [facility] [address] [place] [address], [facility] PLAT CNT 255 10*3/uL Normal 150-[address] [facility] Comment on above: Order Comment: Yes: Add to Previous draw if able Performed By: #### 5 0608 #### [facility] [address] [place] [address], [facility] RBC #/vol (Bld) 3.07 10*6/uL Low 4.20-5.[address] [facility] Comment on above: Order Comment: Yes: Add to Previous draw if able Performed By: #### 5 0608 #### [facility] [address] [place] [address], [facility] WBC #/vol (Bld) 8.66 10*3/uL Normal 4.00-10.[address] [facility] Comment on above: Order Comment: Yes: Add to Previous draw if able Performed By: #### 5 0608 #### [facility] [address] [place] [address], [facility] MAGNESIUM BLOODon 01-02-2018 Magnesium mass conc 1.6 mg/dL Low 1.9-2.[address] [facility] Comment on above: Order Comment: Yes: Add to Previous draw if able Performed By: #### 5 0608 #### [facility] [address] [place] [address], [facility] PHOSPHORUS BLOODon 8 Phosphate mass conc 4.4 mg/dL Normal 2.5-5.[address] [facility] Comment on above: Order Comment: Yes: Add to Previous draw if able Performed By: #### 5 0608 #### [address] [address], [facility] POC GLUCOSE LABon 01-02-2018 Glucose mass conc 114 mg/dL High 70-[address] [facility] Comment on above: Performed By: #### 5 0608 #### [facility] [address] [place] [address], [facility] Glucose mass conc 74 mg/dL Normal 70-[address] [facility] Comment on above: Performed By: #### 5 0608 #### [address] [address], [facility] PORTABLE CHEST 1 VIEWon 12-13 PORTABLE CHEST 1 VIEW [facility] Department of Radiology [address] [place], [place] [id number] ======== Patient Name: MELBA LEVY : 1955 Sex: M Age: Race: White Pt. Location: [id number] Patient Status: I Ordered Date: 01/02/2018 6:35:00 PM Completed Date: 01/02/2018 07:41 PM Requesting Provider: TREVA DEL ANGEL Attending Provider: MELODY CHISHOLM Report Copy To: Signs & Symptoms: O2 Desaturation History: Patient history not available Comments: Check Chest Tube Position Exam: PORTABLE CHEST 1 VIEW ======== PORTABLE CHEST 1 VIEW 01/02/2018 7:41 PM EDT SIGNS AND SYMPTOMS: O2 Desaturation TECHNOLOGIST COMMENTS: Shortness of breath. QUESTION FOR THE RADIOLOGIST: Check Chest Tube Position PROTOCOL: AP(PA) view was obtained. COMPARISON: Chest radiograph January 02 2018 x 2, January 01, 2018. FINDINGS: Chest tube can be seen in the lateral right chest with the tip terminating near the second rib. Second chest tube along the right hemidiaphragm which appears to have been withdrawn slightly since the prior exam. The cardiomediastinal silhouette is unchanged. Small bilateral pleural effusions. No pneumothorax. Similar-appearing diffuse hazy opacities primarily in the lung bases. IMPRESSION: There is been slight interval withdrawal of the right chest tube along the right hemidiaphragm. Second right-sided chest tube in the apex is unchanged. Unchanged small bilateral pleural effusions. Unchanged bilateral pulmonary edema, cannot exclude underlying pneumonia. Approved by:Nirmala Hendrickson on 01/02/2018 7:52 PM EDT. I, Breonna Mariano, have reviewed the images and report and concur with these findings. Electronically signed by:Breonna Mariano. Transcribed by: [email or web address], User Resident: [email or web address] Electronically Signed by: BREONNA MARIANO @ 01/04/2018 03:09 PM I personally read this/these film(s) with this resident Normal [facility] Comment on above: Order Comment: Yes: Add to Previous draw if able PORTABLE CHEST 1 VIEW [facility] Department of Radiology [address] [place] [id number] ======== Patient Name: MELBA LEVY : 1955 Sex: M Age: Race: White Pt. Location: [address] [place] [address] Patient Status: I Ordered Date: 01/02/2018 12:00:00 PM Completed Date: 01/02/2018 01:32 PM Requesting Provider: ERICK UGARTE Attending Provider: MELODY CHISHOLM Report Copy To: Signs & Symptoms: Chest tube had air leak and was hooked to suction. On air seal. History: Patient history not available Comments: R/O Pneumothorax Exam: PORTABLE CHEST 1 VIEW ======== PORTABLE CHEST 1 VIEW 01/02/2018 1:32 PM EDT SIGNS AND SYMPTOMS: Chest tube had air leak and was hooked to suction. On air seal. TECHNOLOGIST COMMENTS: Chest tube to water seal. QUESTION FOR THE RADIOLOGIST: R/O Pneumothorax PROTOCOL: AP(PA) view was obtained. COMPARISON: January 02, 2018 FINDINGS: Improved bilateral infiltrates despite expiratory film No pneumothorax, one of the 3 chest tubes has been withdrawn. Rib fractures unchanged IMPRESSION: 1. Expiratory film with no pneumothorax 2. Improved bilateral infiltrates from prior study of same day Electronically signed by:Toby Niño. Transcribed by: [email or web address], User Resident: Electronically Signed by: TOBY NIÑO @ 01/02/2018 02:01 PM Normal [facility] Comment on above: Order Comment: Yes: Add to Previous draw if able PORTABLE CHEST 1 VIEW [facility] Department of Radiology [address] [place] [id number] ======== Patient Name: MELBA LEVY : 1955 Sex: M Age: Race: White Pt. Location: [address] [place] [address] Patient Status: I Ordered Date: 01/02/2018 5:00:00 AM Completed Date: 01/02/2018 06:23 AM Requesting Provider: ERICK UGARTE Attending Provider: MELODY CHISHOLM Report Copy To: Signs & Symptoms: O2 Desaturation History: Patient history not available Comments: R/O Pulmonary Edema Exam: PORTABLE CHEST 1 VIEW ======== PORTABLE CHEST 1 VIEW 01/02/2018 6:23 AM EDT SIGNS AND SYMPTOMS: O2 Desaturation TECHNOLOGIST COMMENTS: short of breath QUESTION FOR THE RADIOLOGIST: R/O Pulmonary Edema PROTOCOL: AP(PA) view was obtained. COMPARISON: Prior study from the day before. FINDINGS: Frontal view of the chest revealed moderate cardiomegaly. Aorta is tortuous with prominent aortic knob. Metastatic clips and sternotomy wires are again visualized. There is bilateral pulmonary edema and bilateral small pleural effusion seen similar to prior study. 2 right-sided chest tubes are again visualized and no residual right pneumothorax is appreciated. IMPRESSION: Pulmonary edema and/or bilateral pneumonia without interval change since prior exam. Electronically signed by:Jennifer Mullen. Transcribed by: [email or web address], User Resident: Electronically Signed by: JENNIFER MULLEN @ 01/02/2018 11:59 AM Normal [facility] Comment on above: Order Comment: Yes: Add to Previous draw if able BASIC METABOLIC PANELon - Calcium mass conc 8.1 mg/dL Low 8.6-10.[address] [facility] Comment on above: Order Comment: Yes: Add to Previous draw if able Performed By: #### 5 [id number] #### [facility] [address] [place] [address], [facility] Chloride molar conc 105 mmol/L Normal 98-[address] [facility] Comment on above: Order Comment: Yes: Add to Previous draw if able Performed By: #### 5 0608 #### [facility] [address] [place] [address], [place] CO2 molar conc 30 mmol/L Normal 21-[address] [facility] Comment on above: Order Comment: Yes: Add to Previous draw if able Performed By: #### 5 0608 #### [facility] [address] [place] [address], [place] Creatinine mass conc 1.07 mg/dL Normal 0.70-1.[address] [facility] Comment on above: Order Comment: Yes: Add to Previous draw if able Performed By: #### 5 0608 #### [facility] [address] [place] [address], [place] GFR/1.73 sq M predicted among blacks MDRD vol rate/area (S/P/Bld) mL/min/{1.73_m2} Normal >[address] [facility] Comment on above: Order Comment: Yes: Add to Previous draw if able Performed By: #### 5 0608 #### [facility] [address] [place] [address], [place] GFR/1.73 sq M predicted among non-blacks MDRD vol rate/area (S/P/Bld) mL/min/{1.73_m2} Normal >[address] [facility] Comment on above: Order Comment: Yes: Add to Previous draw if able Performed By: #### 5 0608 #### [facility] [address] [place] [address], [place] Glucose mass conc 102 mg/dL High 70-[address] [facility] Comment on above: Order Comment: Yes: Add to Previous draw if able Performed By: #### 5 0608 #### [facility] [address] [place] [address], [place] Potassium molar conc 3.7 mmol/L Normal 3.5-5.[address] [facility] Comment on above: Order Comment: Yes: Add to Previous draw if able Performed By: #### 5 0608 #### [facility] [address] [place] [address], [facility] Sodium molar conc 136 mmol/L Normal 136-[address] [facility] Comment on above: Order Comment: Yes: Add to Previous draw if able Performed By: #### 5 0608 #### [facility] [address] [place] [address], [facility] Urea nitrogen mass conc 19 mg/dL Normal 7-[address] [facility] Comment on above: Order Comment: Yes: Add to Previous draw if able Performed By: #### 5 0608 #### [facility] [address] [place] [address], [facility] CBC COMPLETE BLOOD COUNTon 0 - Erythrocyte distribution width Ratio (RBC) 14.6 % Normal 11.5-15.0 [facility] Comment on above: Order Comment: Yes: Add to Previous draw if able Performed By: #### 5 0608 #### [facility] [address] Hematocrit Volume Fraction (Bld) 23.6 % Low 39.0-50.0 [facility] Comment on above: Order Comment: Yes: Add to Previous draw if able Performed By: #### 5 0608 #### [facility] [address] [place] [id number], [facility] Hemoglobin mass conc (Bld) 7.8 g/dL Low 13.0-17.[address] [facility] Comment on above: Order Comment: Yes: Add to Previous draw if able Performed By: #### 5 0608 #### [facility] [address] [place] [address], [facility] MCH Entitic mass (RBC) 31.1 pg Normal 27.0-33.[address] [facility] Comment on above: Order Comment: Yes: Add to Previous draw if able Performed By: #### 5 0608 #### [facility] [address] [place] [address], [facility] MCHC mass conc (RBC) 33.1 g/dL Normal 32.0-35.[address] [facility] Comment on above: Order Comment: Yes: Add to Previous draw if able Performed By: #### 5 0608 #### [facility] [address] MCV Entitic volume (RBC) 94.0 fL Normal 82.0-98.[address] [facility] Comment on above: Order Comment: Yes: Add to Previous draw if able Performed By: #### 5 0608 #### [facility] [address] [facility] Nucleated RBC/100 WBC Ratio (Bld) 0 % Normal 0-[address] [facility] Comment on above: Order Comment: Yes: Add to Previous draw if able Performed By: #### 5 0608 #### [facility] [address] [facility]. [address] PLAT CNT 240 10*3/uL Normal 150-[address] [facility] Comment on above: Order Comment: Yes: Add to Previous draw if able Performed By: #### 5 0608 #### [facility] [address] [facility]. [address] RBC #/vol (Bld) 2.51 10*6/uL Low 4.20-5.[address] [facility] Comment on above: Order Comment: Yes: Add to Previous draw if able Performed By: #### 5 0608 #### [facility] [address] WBC #/vol (Bld) 10.36 10*3/uL Normal 4.00-10.[address] [facility] Comment on above: Order Comment: Yes: Add to Previous draw if able Performed By: #### 5 0608 #### [facility] [address] MAGNESIUM BLOODon 01-01-2018 Magnesium mass conc 1.6 mg/dL Low 1.9-2.[address] [facility] Comment on above: Order Comment: Yes: Add to Previous draw if able Performed By: #### 5 0608 #### [facility] [address] [place] [address], [place] PHOSPHORUS BLOODon 8 Phosphate mass conc 4.9 mg/dL Normal 2.5-5.[address] [facility] Comment on above: Order Comment: Yes: Add to Previous draw if able Performed By: #### 5 0608 #### [facility] [address] [place] [address], [place] POC GLUCOSE LABon 01-01-2018 Glucose mass conc 104 mg/dL High 70-[address] [facility] Comment on above: Performed By: #### 5 0608 #### [facility] [address] [place] [address], [place] Glucose mass conc 119 mg/dL High 70-[address] [facility] Comment on above: Performed By: #### 5 0608 #### [facility] [address] [place] [address], [place] Glucose mass conc 131 mg/dL High 70-[address] [facility] Comment on above: Performed By: #### 5 0608 #### [facility] [address] [place] [address], [place] Glucose mass conc 92 mg/dL Normal 70-[address] [facility] Comment on above: Performed By: #### 5 0608 #### [facility] [address] [place] [address], [facility] PORTABLE CHEST 1 VIEWon 12-13 PORTABLE CHEST 1 VIEW [facility] Department of Radiology [address] [place] [address] ======== Patient Name: MELBA LEVY : 1955 Sex: M Age: Race: White Pt. Location: [address] [place] [address] Patient Status: I Ordered Date: 01/01/2018 5:00:00 AM Completed Date: 01/01/2018 08:19 AM Requesting Provider: ERICK UGARTE Attending Provider: MELODY CHISHOLM Report Copy To: Signs & Symptoms: O2 Desaturation History: Patient history not available Comments: R/O Pneumothorax Exam: PORTABLE CHEST 1 VIEW ======== PORTABLE CHEST 1 VIEW 01/01/2018 8:19 AM EDT SIGNS AND SYMPTOMS: O2 Desaturation TECHNOLOGIST COMMENTS: pt has chest tubes on his right side. QUESTION FOR THE RADIOLOGIST: R/O Pneumothorax PROTOCOL: AP(PA) view was obtained. COMPARISON: Prior study from the day before. FINDINGS: Cardiac study is moderately enlarged. Aortic knob is prominent with vascular calcification seen similar to prior study. 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 There is worsening bilateral infiltrates likely representing worsening pneumonia. 2 right-sided chest tubes are unchanged and no significant residual pneumothorax is appreciated. There is blunting of the costo phrenic angle suggesting bilateral small effusions. IMPRESSION: Worsening bilateral pneumonia. No residual right pneumothorax and 2 right-sided chest tubes appear unchanged. Electronically signed by:Jennifer Mullen. Transcribed by: [email or web address], User Resident: Electronically Signed by: JENNIFER MULLEN @ 01/01/2018 09:46 AM Normal [facility] Comment on above: Order Comment: Yes: Add to Previous draw if able *BLOOD CULTUREon 12-31-2017 Bacteria identified Cx Nom (Bld) Clinical Report: (D) Specimen: BLOOD CULTURE Collected: 12/31/2017 10:49 Status: Final Last Updated: 01/05/2018 15:12 CULT RES (Final) No Growth Day 5 Normal [facility] Comment on above: Performed By: #### 5 0608 #### [facility] [address] [place] [address], [facility] BASIC METABOLIC PANELon 06- Calcium mass conc 8.0 mg/dL Low 8.6-10.[address] [facility] Comment on above: Order Comment: R/O P neumothorax Performed By: #### 4 999, 09638, 15364 ####[facility] [place] [address], [facility] Chloride molar conc 106 mmol/L Normal 98-[address] [facility] Comment on above: Order Comment: R/O P neumothorax Performed By: #### 4 999, 26964, 39561 ####[facility] [place] [address], [facility] CO2 molar conc 28 mmol/L Normal 21-[address] [facility] Comment on above: Order Comment: R/O P neumothorax Performed By: #### 4 999, 70587, 79415 ####[facility] [place] [address], [facility] Creatinine mass conc 0.99 mg/dL Normal 0.70-1.[address] [facility] Comment on above: Order Comment: R/O P neumothorax Performed By: #### 4 999, 72013, 72012 ####[facility] [place] [address], [place] GFR/1.73 sq M predicted among blacks MDRD vol rate/area (S/P/Bld) mL/min/{1.73_m2} Normal >[address] [facility] Comment on above: Order Comment: R/O P neumothorax Performed By: #### 4 999, 33245, 82633 ####[facility] [place] [address], [place] GFR/1.73 sq M predicted among non-blacks MDRD vol rate/area (S/P/Bld) mL/min/{1.73_m2} Normal >[address] [facility] Comment on above: Order Comment: R/O P neumothorax Performed By: #### 4 1000, 85548, 42192 ####[facility] [place] [address], [facility] Glucose mass conc 89 mg/dL Normal 70-[address] [facility] Comment on above: Order Comment: R/O P neumothorax Performed By: #### 4 1000, 37647, 51456 ####[facility] [place] [address], [facility] Potassium molar conc 3.4 mmol/L Low 3.5-5.[address] [facility] Comment on above: Order Comment: R/O P neumothorax Performed By: #### 4 999, 73340, 22920 ####[facility] [place] [address], [facility] Sodium molar conc 138 mmol/L Normal 136-[address] [facility] Comment on above: Order Comment: R/O P neumothorax Performed By: #### 4 999, 80326, 28233 ####[facility] [place] [address], [facility] Urea nitrogen mass conc 17 mg/dL Normal 7-[address] [facility] Comment on above: Order Comment: R/O P neumothorax Performed By: #### 4 999, 91969, 12787 ####[facility] [place] [address], [facility] CBC W/DIFFon 12-31-2017 ABS BASOPHILS 0.1 10*3/uL Normal 0.0-0.[address] [facility] Comment on above: Order Comment: R/O P neumothorax Performed By: #### 5 0103 ####[facility] ABS IMM GRANS 0.1 10*3/uL Normal 0.0-0.[address] [facility] Comment on above: Order Comment: R/O P neumothorax Performed By: #### 5 0103 ####[facility] ABS NEUTROPHILS 8.3 10*3/uL High 1.6-7.[address] [facility] Comment on above: Order Comment: R/O P neumothorax Performed By: #### 5 0103 ####[facility] [facility] Basophils #/vol (Bld) 0.6 % Normal 0.0-1.[address] [facility] Comment on above: Order Comment: R/O P neumothorax Performed By: #### 3 ####[facility] [facility] Eosinophils #/vol (Bld) 0.4 10*3/uL Normal 0.0-0.[address] [facility] Comment on above: Order Comment: R/O P neumothorax Performed By: #### 5 3 ####[facility] [facility].[address] Eosinophils/100 WBC (Bld) 4.1 % Normal 0.0-6.[address] [facility] Comment on above: Order Comment: R/O P neumothorax Performed By: #### 5 0103 ####[facility] [facility].[address] Erythrocyte distribution width Ratio (RBC) 14.5 % Normal 11.5-15.[address] [facility] Comment on above: Order Comment: R/O P neumothorax Performed By: #### 3 ####[facility] [facility].[address] Hematocrit Volume Fraction (Bld) 22.9 % Low 39.0-50.[address] [facility] Comment on above: Order Comment: R/O P neumothorax Performed By: #### 5 0103 ####[facility] Hemoglobin mass conc (Bld) 7.8 g/dL Low 13.0-17.[address] [facility] Comment on above: Order Comment: R/O P neumothorax Performed By: #### 5 0103 ####[facility] IMMATURE GRANS 1.2 % High 0.0-1.[address] [facility] Comment on above: Order Comment: R/O P neumothorax Performed By: #### 5 0103 ####[facility] Lymphocytes #/vol (Bld) 0.7 10*3/uL Low 1.2-4.[address] [facility] Comment on above: Order Comment: R/O P neumothorax Performed By: #### 5 0103 ####[facility] Lymphocytes/100 WBC (Bld) 6.9 % Low 20.0-45.[address] [facility] Comment on above: Order Comment: R/O P neumothorax Performed By: #### 5 0103 ####[facility] MCH Entitic mass (RBC) 31.3 pg Normal 27.0-33.[address] [facility] Comment on above: Order Comment: R/O P neumothorax Performed By: #### 5 3 ####[facility] MCHC mass conc (RBC) 34.1 g/dL Normal 32.0-35.[address] [facility] Comment on above: Order Comment: R/O P neumothorax Performed By: #### 5 3 ####[facility] MCV Entitic volume (RBC) 92.0 fL Normal 82.0-98.[address] [facility] Comment on above: Order Comment: R/O P neumothorax Performed By: #### 5 3 ####[facility] Monocytes #/vol (Bld) 0.6 10*3/uL Normal 0.1-1.[address] [facility] Comment on above: Order Comment: R/O P neumothorax Performed By: #### 5 102 ####[facility] MONOS 6.2 % Normal 5.0-12.[address] [facility] Comment on above: Order Comment: R/O P neumothorax Performed By: #### 102 ####[facility] Neutrophils/100 WBC (Bld) 81.0 % High 40.0-72.[address] [facility] Comment on above: Order Comment: R/O P neumothorax Performed By: #### 5 3 ####[facility] Nucleated RBC/100 WBC Ratio (Bld) 0 % Normal 0-[address] [facility] Comment on above: Order Comment: R/O P neumothorax Performed By: #### 5 3 ####[facility] PLAT CNT 222 10*3/uL Normal 150-[address] [facility] Comment on above: Order Comment: R/O P neumothorax Performed By: #### 3 ####[facility] [facility].[address] RBC #/vol (Bld) 2.49 10*6/uL Low 4.20-5.[address] [facility] Comment on above: Order Comment: R/O P neumothorax Performed By: #### 5 0103 ####[facility] [place] [address], [facility] WBC #/vol (Bld) 10.18 10*3/uL Normal 4.00-10.[address] [facility] Comment on above: Order Comment: R/O P neumothorax Performed By: #### 5 0103 ####[facility] MAGNESIUM BLOODon 12-31-2017 Magnesium mass conc 1.7 mg/dL Low 1.9-2.[address] [facility] Comment on above: Order Comment: Yes: Add to Previous draw if able Performed By: #### 5 0608 #### [facility] [address] [place] [address], [facility] PHOSPHORUS BLOODon 8 Phosphate mass conc 4.4 mg/dL Normal 2.5-5.[address] [facility] Comment on above: Order Comment: R/O P neumothorax Performed By: #### 4 1000, 48551, 15868 ####[facility] [facility].[address] POC GLUCOSE LABon 12-31-2017 Glucose mass conc 110 mg/dL High 70-[address] [facility] Comment on above: Performed By: #### 5 0608 #### [facility] [address] [facility]. [address] Glucose mass conc 99 mg/dL Normal 70-[address] [facility] Comment on above: Performed By: #### 5 0608 #### [facility] [address] [place] [address], [facility] Glucose mass conc 96 mg/dL Normal 70-100 [facility] Comment on above: Performed By: #### 5 0608 #### [facility] [address] [place] [address], [facility] Glucose mass conc 85 mg/dL Normal 70-[address] [facility] Comment on above: Performed By: #### 5 0608 #### [facility] [address] [facility] [address], [facility] PORTABLE CHEST 1 VIEWon 12-13 PORTABLE CHEST 1 VIEW [facility] Department of Radiology [address] [place] [address] ======== Patient Name: MELBA LEVY : 1955 Sex: M Age: Race: White Pt. Location: [address] [place] [address] Patient Status: I Ordered Date: 12/31/2017 9:40:00 AM Completed Date: 12/31/2017 12:38 PM Requesting Provider: REJI RYAN Attending Provider: MELODY CHISHOLM Report Copy To: Signs & Symptoms: Post OP History: Patient history not available Comments: R/O Infiltrates Exam: PORTABLE CHEST 1 VIEW ======== PORTABLE CHEST 1 VIEW 12/31/2017 12:38 PM EDT SIGNS AND SYMPTOMS: Post OP TECHNOLOGIST COMMENTS: patient is short of breath, 2 days post op thoracotomy QUESTION FOR THE RADIOLOGIST: R/O Infiltrates PROTOCOL: AP(PA) view was obtained. COMPARISON: Prior study from earlier on the same day. FINDINGS: Frontal view of the chest revealed moderate cardiomegaly. Vascular calcification at the aortic knob and mediastinal clips and sternotomy wires from prior CABG procedure, unchanged. There is persistent bilateral hilar and basal congestion with mild improvement since prior exam. There is right pleural effusion and 2 right-sided chest tubes in place with no evidence of residual pneumothorax. Left retrocardiac consolidation and pleural effusion are again visualized. IMPRESSION: Mild improvement in decompensated CHF since prior study. Electronically signed by:Jennifer Mullen. Transcribed by: [email or web address], User Resident: Electronically Signed by: JENNIFER MULLEN @ 12/31/2017 02:51 PM Normal [facility] Comment on above: Order Comment: Yes: Add to Previous draw if able PORTABLE CHEST 1 VIEW [facility] Department of Radiology [address] [place] [id number] ======== Patient Name: MELBA LEVY : 1955 Sex: M Age: Race: White Pt. Location: [address] [place] [address] Patient Status: I Ordered Date: 12/31/2017 5:00:00 AM Completed Date: 12/31/2017 06:47 AM Requesting Provider: ERICK UGARTE Attending Provider: MELODY CHISHOLM Report Copy To: Signs & Symptoms: Chest Pain History: Patient history not available Comments: R/O Pneumothorax Exam: PORTABLE CHEST 1 VIEW ======== PORTABLE CHEST 1 VIEW 12/31/2017 6:47 AM EDT SIGNS AND SYMPTOMS: Chest Pain TECHNOLOGIST COMMENTS: Chest Pain QUESTION FOR THE RADIOLOGIST: R/O Pneumothorax PROTOCOL: AP(PA) view was obtained. COMPARISON: Prior study from the day before. FINDINGS: Frontal view of the chest revealed interval extubation and removal of NGT since prior study. There is moderate cardiomegaly and bilateral hilar and basal congestion. 2 right-sided chest tubes remain in place with no evidence of residual pneumothorax. Sternotomy wires and mediastinal clips are visualized likely from prior CABG procedure. IMPRESSION: Decompensated CHF with interval extubation and removal of NGT. Left retrocardiac consolidation similar to prior study. Electronically signed by:Jennifer Mullen. Transcribed by: [email or web address], User Resident: Electronically Signed by: JENNIFER MULLEN @ 12/31/2017 02:29 PM Normal [facility] Comment on above: Order Comment: Yes: Add to Previous draw if able ARTERIAL BLOOD GAS WITH ICAo n 12-30-2017 BASE EXCESS 1 mmol/L Normal -2-[address] [facility] Comment on above: Performed By: #### 5 0608 #### [facility] [address] [place] [address], [facility] DELIVERY SYSTEMS VENTILATOR Normal [facility] Comment on above: Performed By: #### 5 0608 #### [facility] [address] [place] [address], [facility] FIO2 60 % Normal 21-[address] [facility] Comment on above: Performed By: #### 5 0608 #### [facility] [address] [place] [address], [facility] HCO3 molar conc (Bld) 26 mmol/L Normal 23-[address] [facility] Comment on above: Performed By: #### 5 0608 #### [facility] [address] [place] [address], [facility] IONIZED CALCIUM 1.25 mmol/L Normal 1.13-1.[address] [facility] Comment on above: Performed By: #### 5 0608 #### [facility] [address] [place] [address], [facility] MIN VOLUME 10.[address] [facility] Comment on above: Performed By: #### 5 0608 #### [facility] [address] [place] [id number], [facility] MODALITY AC Normal [facility] Comment on above: Performed By: #### 5 0608 #### [facility] [address] [place] [address], [facility] Oxygen ppres (Bld) 103 mm[Hg] Critically high 75-[address] [facility] Comment on above: Performed By: #### 5 0608 #### [facility] [address] Oxygen saturation in Blood 97.4 % High 94.0-97.[address] [facility] Comment on above: Performed By: #### 5 0608 #### [facility] [address] [place] [address], [facility] PCO2 43 mmHg Normal 35-[address] [facility] Comment on above: Performed By: #### 5 0608 #### [facility] [address] [place] [address], [facility] PEEP 5.0 CMH20 Normal [facility] Comment on above: Performed By: #### 5 0608 #### [facility] [address] [place] [place] [address], [facility] PF RATIO 172 mmHg Normal 50-[address] [facility] Comment on above: Performed By: #### 5 0608 #### [facility] [address] [place] [address], [facility] pH (Bld) 7.39 [pH] Normal 7.35-7.[address] [facility] Comment on above: Performed By: #### 5 0608 #### [facility] [address] [place] [address], [facility] TIDAL VOLUME (VT) CC 550 Normal [address] [facility] Comment on above: Performed By: #### 5 0608 #### [facility] [address] [place] [address], [facility] BASIC METABOLIC PANELon - Calcium mass conc 7.9 mg/dL Low 8.6-10.[address] [facility] Comment on above: Order Comment: No: D o not add to previous draw Performed By: #### 5 0608 #### [facility] [address] [place] [address], [facility] Chloride molar conc 108 mmol/L High 98-[address] [facility] Comment on above: Order Comment: No: D o not add to previous draw Performed By: #### 5 0608 #### [facility] [address] [place] [address], [facility] CO2 molar conc 26 mmol/L Normal 21-[address] [facility] Comment on above: Order Comment: No: D o not add to previous draw Performed By: #### 5 0608 #### [facility] [address] [place] [address], [facility] Creatinine mass conc 0.78 mg/dL Normal 0.70-1.[address] [facility] Comment on above: Order Comment: No: D o not add to previous draw Performed By: #### 5 0608 #### [facility] [address] [place] [address], [place] GFR/1.73 sq M predicted among blacks MDRD vol rate/area (S/P/Bld) mL/min/{1.73_m2} Normal >[address] [facility] Comment on above: Order Comment: No: D o not add to previous draw Performed By: #### 5 0608 #### [facility] [address] [place] [address], [place] GFR/1.73 sq M predicted among non-blacks MDRD vol rate/area (S/P/Bld) mL/min/{1.73_m2} Normal >[address] [facility] Comment on above: Order Comment: No: D o not add to previous draw Performed By: #### 5 0608 #### [facility] [address] [place] [address], [facility] Glucose mass conc 83 mg/dL Normal 70-[address] [facility] Comment on above: Order Comment: No: D o not add to previous draw Performed By: #### 5 0608 #### [facility] [address] [place] [id number], [facility] Potassium molar conc 4.1 mmol/L Normal 3.5-5.[address] [facility] Comment on above: Order Comment: No: D o not add to previous draw Performed By: #### 5 0608 #### [facility] [address] [place] [address], [facility] Sodium molar conc 137 mmol/L Normal 136-[address] [facility] Comment on above: Order Comment: No: D o not add to previous draw Performed By: #### 5 0608 #### [facility] [address] [place] [address], [facility] Urea nitrogen mass conc 15 mg/dL Normal 7-[address] [facility] Comment on above: Order Comment: No: D o not add to previous draw Performed By: #### 5 0608 #### [facility] [address] CBC COMPLETE BLOOD COUNTon 0 - Erythrocyte distribution width Ratio (RBC) 14.9 % Normal 11.5-15.[address] [facility] Comment on above: Order Comment: No: D o not add to previous draw Performed By: #### 5 0608 #### [facility] [address] [place] [address], [facility] Hematocrit Volume Fraction (Bld) 25.4 % Low 39.0-50.[address] [facility] Comment on above: Order Comment: No: D o not add to previous draw Performed By: #### 5 0608 #### [facility] [address] Hemoglobin mass conc (Bld) 8.3 g/dL Low 13.0-17.[address] [facility] Comment on above: Order Comment: No: D o not add to previous draw Performed By: #### 5 0608 #### [facility] [address] [place] [address], [facility] MCH Entitic mass (RBC) 30.4 pg Normal 27.0-33.[address] [facility] Comment on above: Order Comment: No: D o not add to previous draw Performed By: #### 5 0608 #### [facility] [address] [facility] [address] MCHC mass conc (RBC) 32.7 g/dL Normal 32.0-35.[address] [facility] Comment on above: Order Comment: No: D o not add to previous draw Performed By: #### 5 0608 #### [facility] [address] MCV Entitic volume (RBC) 93.0 fL Normal 82.0-98.[address] [facility] Comment on above: Order Comment: No: D o not add to previous draw Performed By: #### 5 0608 #### [facility] [address] [facility] Nucleated RBC/100 WBC Ratio (Bld) 0 % Normal 0-[address] [facility] Comment on above: Order Comment: No: D o not add to previous draw Performed By: #### 5 0608 #### [facility] [address] [place] [address], [facility] PLAT CNT 198 10*3/uL Normal 150-[address] [facility] Comment on above: Order Comment: No: D o not add to previous draw Performed By: #### 5 0608 #### [facility] [address] RBC #/vol (Bld) 2.73 10*6/uL Low 4.20-5.[address] [facility] Comment on above: Order Comment: No: D o not add to previous draw Performed By: #### 5 0608 #### [facility] [address] WBC #/vol (Bld) 8.98 10*3/uL Normal 4.00-10.[address] [facility] Comment on above: Order Comment: No: D o not add to previous draw Performed By: #### 5 0608 #### [facility] [address] [facility] [address] MAGNESIUM BLOODon 12-30-2017 Magnesium mass conc 2.2 mg/dL Normal 1.9-2.[address] [facility] Comment on above: Order Comment: No: D o not add to previous draw Performed By: #### 5 0608 #### [facility] [address] [facility] Operative Reporton 8 Operative Report MR#: [id number] [facility] Pt. Name: Melba Levy Room #: [id number] Discharge Date: Birthdate: 1955 OPERATIVE REPORT DATE OF SURGERY: 12/29/2017 SURGEON: Alan Lehman MD PREOPERATIVE DIAGNOSIS: Right-sided empyema with partially entrapped right lung. POSTOPERATIVE DIAGNOSIS: Right-sided empyema with partially entrapped right lung. PROCEDURE: 1. Bronchoscopy. 2. Right VATS. 3. Right mini thoracotomy. 4. Evacuation of empyema. 5. Decortication of right lower lobe, right middle lobe, right upper lobe. ANESTHESIA: General with endotracheal intubation and 0.5% Exparel local anesthetic. PREP: DuraPrep. COMPLICATIONS: None. BODY OF THE REPORT: Melba Levy is a 62-year-old man, who presented with several days to approximately weeks of respiratory insufficiency. The patient has had at least 2 falls, which may be related to alcohol use. He was known to have rib fractures. He presented initially to an outside hospital, where a right chest tube was placed with drainage of right pleural effusion. The patient has had positive blood cultures, MSSA. 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 The patient was taken to the operating room today in order to evacuate his empyema and decorticate his lung in a hope to achieve complete reexpansion of the right lung. The patient has been wearing BiPAP and has been hypoxic. He has significant pain in his rib fractures. He has been advised that likely he will return mechanical ventilation. The patient understands the risks and benefits of the proposed procedure, agrees to proceed. The patient was brought to the operative room and placed on the operating table in supine position. General anesthesia was induced and the patient was endotracheally intubated. Bronchoscopy was carried out through the endotracheal tube. There are significant mucopurulent secretions. We partially cleared the manju. There is no obstruction of the mainstem bronchi bilaterally. We were able to scope into the bronchus intermedius and the right upper lobe. The bronchoscopy was terminated somewhat prematurely due to inability to achieve adequate suction. The bronchial rhoda was placed by the anesthesia staff. The patient was placed on left lateral decubitus position. The chest was prepped and draped in usual aseptic fashion. The previous chest tube was removed prior to prepping the patient. A VATS site was made in the anterior axillary line approximately the 7th interspace. Scope was inserted. There was large amount of fibrinous material. The lung was entrapped. We spent several minutes irrigating and aspirating. We felt that this process would be tedious and difficult to achieve complete reexpansion. Therefore, we extended the incision to approximately 9 cm in total length. Tophier retractor was placed. We were able to complete decortication of lung through this incision. Most of the entrapment involved the inferior portion of the lower lobe. It is also extended anteriorly into the middle lobe and the lower part of the upper lobe. All peel was removed to the best of our ability. I would estimate that at 95% reexpansion. Multiple tears were created in the lung. No significant hemorrhage. The peel sent for pathology. The peel was sent for cultures as well. The chest wall was irrigated out with several layers of normal saline. The [place] 4 channel drains were placed 1 inferiorly and 2 anteriorly. These were secured inferior to the incision. The incision was closed in layers with #1 Vicryl pericostal sutures, #1 Vicryl fascial sutures. The skin was closed using a 3-0 Vicryl subcuticular suture. The previous chest tube site was irrigated, debrided and closed with several gaby. The posterior port site of the VATS was also closed in layers and Dermabond was applied to the skin. The patient tolerated the procedure relatively well. The patient does become hypoxic relatively easily through the lung ventilation. He was transported to the ICU in stable condition, intubated. Chest x-ray is pending. All sponge, needle counts, and instrument counts were correct at the end of the procedure. Electronically Signed by: Alan Lehman MD 12/30/2017 05:16 P Alan Lehman MD Date Dict: 12/29/2017/01:40 P/Alan Lehman MD Date Trans: 12/30/2017 12:32 A/pravin [id number] cc: Elena Ann N.P. [address] [place] [address] Normal [facility] PHOSPHORUS BLOODon 8 Phosphate mass conc 3.8 mg/dL Normal 2.5-5.[address] [facility] Comment on above: Order Comment: No: D o not add to previous draw Performed By: #### 5 0608 #### [facility] [address] [place] [address], [facility] POC GLUCOSE LABon 12-30-2017 Glucose mass conc 120 mg/dL High 70-[address] [facility] Comment on above: Performed By: #### 8 5499 ####[facility] [place] [address], [facility] Glucose mass conc 141 mg/dL High 70-[address] [facility] Comment on above: Performed By: #### 8 5499 ####[facility] [place] [address], [facility] Glucose mass conc 106 mg/dL High 70-[address] [facility] Comment on above: Performed By: #### 5 0608 #### [facility] [address] [place] [address], [facility] Glucose mass conc 90 mg/dL Normal 70-[address] [facility] Comment on above: Performed By: #### 8 5499 ####[facility] [place] [address], [facility] PORTABLE CHEST 1 VIEWon 12-12 PORTABLE CHEST 1 VIEW [facility] Department of Radiology [address] [place] [address] ======== Patient Name: MELBA LEVY : 1955 Sex: M Age: Race: White Pt. Location: [address] [place] [address] Patient Status: I Ordered Date: 12/30/2017 7:15:00 AM Completed Date: 12/30/2017 07:54 AM Requesting Provider: ERICK UGARTE Attending Provider: MELODY CHISHOLM Report Copy To: Signs & Symptoms: Currently intubated History: Patient history not available Comments: R/O Infiltrates Exam: PORTABLE CHEST 1 VIEW ======== PORTABLE CHEST 1 VIEW 12/30/2017 7:54 AM EDT SIGNS AND SYMPTOMS: Currently intubated TECHNOLOGIST COMMENTS: ET to vent Left sided chest tubes check progress QUESTION FOR THE RADIOLOGIST: R/O Infiltrates PROTOCOL: AP(PA) view was obtained. COMPARISON: December 29 FINDINGS: ET tube is in satisfactory position. Feeding tube just into the gastric cardia unchanged from prior study. This could be advanced 5 cm. Bibasilar infiltrates are slightly improved particularly on the left. There is a small left pleural effusion which is unchanged. Chest tubes on the right are unchanged. Artifact partially obscures left apex. IMPRESSION: Slight improvement left side consistent with improving pulmonary edema. Infiltrates remain however and findings may be superimposed for pneumonia. No pneumothorax. Electronically signed by:Robert Moya. Transcribed by: [email or web address], User Resident: Electronically Signed by: ROBERT MOYA @ 12/30/2017 08:03 AM Normal [facility] Comment on above: Order Comment: R/O P neumothorax *ANAEROBIC CULTUREon 018 *ANAEROBIC CULTURE Clinical Report: (D) Specimen/Source: SWAB/INTRAOP SPEC Collected: 12/29/2017 11:37 Status: Final Last Updated: 01/03/2018 07:55 (1) 1. RIGHT PLEURA ISO (Final) No Anaerobes Isolated 5 Days Normal [facility] Comment on above: Order Comment: R/O P neumothorax Performed By: #### 3 0312 ####[facility] *FUNGAL CULTUREon 12-29-2017 *FUNGAL CULTURE Clinical Report: (D) Specimen/Source: SWAB/INTRAOP SPEC Collected: 12/29/2017 11:37 Status: Final Last Updated: 01/29/2018 15:12 (1) 1. RIGHT PLEURA FS (Final) No Yeast or Fungal Elements Seen CULT RES (Final) Culture negative for fungus Normal [facility] Comment on above: Order Comment: R/O P neumothorax Performed By: #### 3 0323 ####[facility] *WOUND CULTUREon 12-29-2017 *WOUND CULTURE Clinical Report: (D) Specimen/Source: WOUND/INTRAOP SPEC Collected: 12/29/2017 11:37 Status: Final Last Updated: 01/01/2018 08:33 (1) 1. RIGHT PLEURA GRAM (Final) Rare Polys No Bacteria Seen ISO (Final) Staphylococcus aureus Rare Growth Inducible resistance to Clindamycin is present. Organism should be considered resistant to Clindamycin despite ABRIL. ISOLATE: Staphylococcus aureus -- ABRIL (mcg/ml) CLINDAMYCIN (CC) <=0.5 Resistant DAPTOMYCIN (DAP) <=1 Susceptible ERYTHROMYCIN (E) >4 Resistant OXACILLIN (OX) 0.5 Susceptible PENICILLIN (P) >1 Resistant TETRACYCLINE (TE) <=0.5 Susceptible TRIMETH/SULFA (SXT) <=0.5/9.5 Susceptible VANCOMYCIN (VA) <=0.5 Susceptible Result changed by PAYAM on 01/01/2018 08:22. The previous result was: ISO (Prelim) Staphylococcus aureus Rare Growth Result changed by PAYAM on 12/31/2017 08:22. The previous result was: ISO (Prelim) Staphylococcus aureus Rare Growth Normal [facility] Comment on above: Order Comment: No: D o not add to previous draw Performed By: #### 5 0608 #### [facility] [address] [facility]. [address] ARTERIAL BLOOD GAS WITH ICAo n 12-29-2017 BASE EXCESS -3 mmol/L Low -2-[address] [facility] Comment on above: Performed By: #### 0 0071, 66678, 00485 #### [facility] [address] [facility] [address] DELIVERY SYSTEMS VENT Normal [facility] Comment on above: Performed By: #### 0 0071, 91304, 83858 #### [facility] [address] [place] [address], [facility] FIO2 80 % Normal 21-[address] [facility] Comment on above: Performed By: #### 0 0071, 00098, 68959 #### [facility] [address] [place] [address], [place] HCO3 molar conc (Bld) 23 mmol/L Normal 23-[address] [facility] Comment on above: Performed By: #### 0 0071, 39242, 58569 #### [facility] [address] [place] [address], [facility] IONIZED CALCIUM 1.23 mmol/L Normal 1.13-1.[address] [facility] Comment on above: Performed By: #### 0 0071, 91126, 84813 #### [facility] [address] [place] [address], [facility] MIN VOLUME 9.[address] [facility] Comment on above: Performed By: #### 0 0071, 72479, 61802 #### [facility] [address] [place] [address], [facility] MODALITY AC Normal [facility] Comment on above: Performed By: #### 0 0071, 59931, 29766 #### [facility] [address] [place] [address], [place] Oxygen ppres (Bld) 88 mm[Hg] Normal 75-[address] [facility] Comment on above: Performed By: #### 0 0071, 67326, 42449 #### [facility] [address] [place] [address], [place] Oxygen saturation in Blood 94.7 % Normal 94.0-97.[address] [facility] Comment on above: Performed By: #### 0 0071, 36562, 16779 #### [facility] [address] [place] [address], [place] PCO2 44 mmHg Normal 35-[address] [facility] Comment on above: Performed By: #### 0 0071, 62560, 18094 #### [facility] [address] [place] [address], [place] PEEP 5.0 CMH20 Normal [facility] Comment on above: Performed By: #### 0 0071, 19381, 97079 #### [facility] [address] [place] [address], [facility] PF RATIO 110 mmHg Normal 50-[address] [facility] Comment on above: Performed By: #### 0 0071, 55540, 02814 #### [facility] [address] [place] [address], [facility] pH (Bld) 7.33 [pH] Low 7.35-7.[address] [facility] Comment on above: Performed By: #### 0 0071, 16616, 17548 #### [facility] [address] [place] [address], [facility] TIDAL VOLUME (VT) CC 550 Normal [facility] Comment on above: Performed By: #### 0 0071, 89100, 06856 #### [facility] [address] [place] [address], [facility] BASE EXCESS -6 mmol/L Low -2-[address] [facility] Comment on above: Order Comment: No: D o not add to previous draw Performed By: #### 0 0071, 20253, 33691 #### [facility] [address] [place] [address], [facility] DELIVERY SYSTEMS MV Normal [facility] Comment on above: Order Comment: No: D o not add to previous draw Performed By: #### 0 0071, 19257, 93895 #### [facility] [address] [place] [address], [facility] FIO2 80 % Normal 21-[address] [facility] Comment on above: Order Comment: No: D o not add to previous draw Performed By: #### 0 0071, 15757, 58338 #### [facility] [address] [place] [id number], [facility] HCO3 molar conc (Bld) 22 mmol/L Low 23-[address] [facility] Comment on above: Order Comment: No: D o not add to previous draw Performed By: #### 0 0071, 93166, 10352 #### [facility] [address] [place] [address], [place] IONIZED CALCIUM 1.31 mmol/L Normal 1.13-1.[address] [facility] Comment on above: Order Comment: No: D o not add to previous draw Performed By: #### 0 0071, 76124, 80596 #### [facility] [address] [place] [address], [place] MIN VOLUME 11.4 Normal [facility] Comment on above: Order Comment: No: D o not add to previous draw Performed By: #### 0 0071, 07912, 25849 #### [facility] [address] [place] [address], [place] MODALITY AC Normal [facility] Comment on above: Order Comment: No: D o not add to previous draw Performed By: #### 0 0071, 41732, 21606 #### [facility] [address] [place] [address], [place] Oxygen ppres (Bld) 70 mm[Hg] Low 75-[address] [facility] Comment on above: Order Comment: No: D o not add to previous draw Performed By: #### 0 0071, 43227, 14021 #### [facility] [address] [place] [address], [place] Oxygen saturation in Blood 92.4 % Low 94.0-97.[address] [facility] Comment on above: Order Comment: No: D o not add to previous draw Performed By: #### 0 0071, 83202, 65439 #### [facility] [address] [place] [address], [place] PCO2 52 mmHg High 35-[address] [facility] Comment on above: Order Comment: No: D o not add to previous draw Performed By: #### 0 0071, 69744, 59417 #### [facility] [address] [place] [address], [place] PEEP 5.0 CMH20 Normal [facility] Comment on above: Order Comment: No: D o not add to previous draw Performed By: #### 0 0071, 99152, 72924 #### [facility] [address] [place] [address], [facility] PF RATIO 88 mmHg Normal 50-[address] [facility] Comment on above: Order Comment: No: D o not add to previous draw Performed By: #### 0 0071, 40554, 38027 #### [facility] [address] [place] [address], [facility] pH (Bld) 7.23 [pH] Critically low 7.35-7.[address] [facility] Comment on above: Order Comment: No: D o not add to previous draw Performed By: #### 0 0071, 63250, 46971 #### [facility] [address] [place] [address], [facility] TIDAL VOLUME (VT) CC 550 Normal [facility] Comment on above: Order Comment: No: D o not add to previous draw Performed By: #### 0 0071, 05129, 93895 #### [facility] [address] [place] [address], [facility] BASE EXCESS 0 mmol/L Normal -2-[address] [facility] Comment on above: Order Comment: No: D o not add to previous draw Performed By: #### 0 0071, 23560, 99358 #### [facility] [address] [place] [address], [facility] DELIVERY [employer] NASAL CANNULA Normal [facility] Comment on above: Order Comment: No: D o not add to previous draw Performed By: #### 0 0071, 08943, 60804 #### [facility] [address] [place] [address], [place] FIO2 100 % Normal 21-[address] [facility] Comment on above: Order Comment: No: D o not add to previous draw Performed By: #### 0 0071, 65808, 24861 #### [facility] [address] [place] [address], [facility] HCO3 molar conc (Bld) 28 mmol/L High 23-[address] [facility] Comment on above: Order Comment: No: D o not add to previous draw Performed By: #### 0 0071, 89527, 27252 #### [facility] [address] [place] [address], [facility] IONIZED CALCIUM 1.37 mmol/L High 1.13-1.[address] [facility] Comment on above: Order Comment: No: D o not add to previous draw Performed By: #### 0 0071, 19130, 27621 #### [facility] [address] [place] [address], [facility] LPM 40.0 LPM High 0.5-20.[address] [facility] Comment on above: Order Comment: No: D o not add to previous draw Performed By: #### 0 0071, 16192, 82934 #### [facility] [address] [place] [address], [facility] Oxygen ppres (Bld) 59 mm[Hg] Low 75-[address] [facility] Comment on above: Order Comment: No: D o not add to previous draw Performed By: #### 0 0071, 19856, 64813 #### [facility] [address] [place] [address], [facility] Oxygen saturation in Blood 89.6 % Low 94.0-97.[address] [facility] Comment on above: Order Comment: No: D o not add to previous draw Performed By: #### 0 0071, 68245, 75408 #### [facility] [address] [place] [address], [facility] PCO2 66 mmHg Critically high 35-[address] [facility] Comment on above: Order Comment: No: D o not add to previous draw Performed By: #### 0 0071, 13244, 02684 #### [facility] [address] [place] [address], [facility] pH (Bld) 7.24 [pH] Critically low 7.35-7.[address] [facility] Comment on above: Order Comment: No: D o not add to previous draw Performed By: #### 0 0071, 55056, 59402 #### [facility] [address] [place] [address], [facility] BASIC METABOLIC PANELon 12-12 Calcium mass conc 8.6 mg/dL Normal 8.6-10.[address] [facility] Comment on above: Order Comment: No: D o not add to previous draw Performed By: #### 0 0071, 46142, 98515 #### [facility] [address] [place] [address], [facility] Chloride molar conc 108 mmol/L High 98-[address] [facility] Comment on above: Order Comment: No: D o not add to previous draw Performed By: #### 0 0071, 93489, 84583 #### [facility] [address] [place] [address], [facility] CO2 molar conc 23 mmol/L Normal 21-[address] [facility] Comment on above: Order Comment: No: D o not add to previous draw Performed By: #### 0 0071, 53044, 87271 #### [facility] [address] [place] [address], [facility] Creatinine mass conc 0.64 mg/dL Low 0.70-1.[address] [facility] Comment on above: Order Comment: No: D o not add to previous draw Performed By: #### 0 0071, 41962, 91374 #### [facility] [address] [place] [address], [facility] GFR/1.73 sq M predicted among blacks MDRD vol rate/area (S/P/Bld) mL/min/{1.73_m2} Normal >[address] [facility] Comment on above: Order Comment: No: D o not add to previous draw Performed By: #### 0 0071, 14969, 65170 #### [facility] [address] [place] [address], [place] GFR/1.73 sq M predicted among non-blacks MDRD vol rate/area (S/P/Bld) mL/min/{1.73_m2} Normal >[address] [facility] Comment on above: Order Comment: No: D o not add to previous draw Performed By: #### 0 0071, 74598, 80159 #### [facility] [address] [place] [address], [place] Glucose mass conc 77 mg/dL Normal 70-[address] [facility] Comment on above: Order Comment: No: D o not add to previous draw Performed By: #### 0 0071, 42453, 62620 #### [facility] [address] [place] [address], [place] Potassium molar conc 4.4 mmol/L Normal 3.5-5.[address] [facility] Comment on above: Order Comment: No: D o not add to previous draw Performed By: #### 0 0071, 78886, 46679 #### [facility] [address] [place] [address], [place] Sodium molar conc 136 mmol/L Normal 136-[address] [facility] Comment on above: Order Comment: No: D o not add to previous draw Performed By: #### 0 0071, 69740, 26410 #### [facility] [address] [place] [address], [place] Urea nitrogen mass conc 12 mg/dL Normal 7-[address] [facility] Comment on above: Order Comment: No: D o not add to previous draw Performed By: #### 0 0071, 69071, 75101 #### [facility] [address] [place] [address], [place] Calcium mass conc 8.9 mg/dL Normal 8.6-10.[address] [facility] Comment on above: Order Comment: No: D o not add to previous draw Performed By: #### 0 0071, 52892, 90569 #### [facility] [address] [place] [address], [place] Chloride molar conc 107 mmol/L Normal 98-[address] [facility] Comment on above: Order Comment: No: D o not add to previous draw Performed By: #### 0 0071, 63884, 21621 #### [facility] [address] [place] [address], [place] CO2 molar conc 24 mmol/L Normal 21-[address] [facility] Comment on above: Order Comment: No: D o not add to previous draw Performed By: #### 0 0071, 37299, 37652 #### [facility] [address] [place] [address], [place] Creatinine mass conc 0.51 mg/dL Low 0.70-1.[address] [facility] Comment on above: Order Comment: No: D o not add to previous draw Performed By: #### 0 0071, 93108, 15327 #### [facility] [address] [place] [address], [place] GFR/1.73 sq M predicted among blacks MDRD vol rate/area (S/P/Bld) mL/min/{1.73_m2} Normal >[address] [facility] Comment on above: Order Comment: No: D o not add to previous draw Performed By: #### 0 0071, 15965, 39053 #### [facility] [address] [place] [address], [place] GFR/1.73 sq M predicted among non-blacks MDRD vol rate/area (S/P/Bld) mL/min/{1.73_m2} Normal >[address] [facility] Comment on above: Order Comment: No: D o not add to previous draw Performed By: #### 0 0071, 84153, 70036 #### [facility] [address] [place] [address], [facility] Glucose mass conc 80 mg/dL Normal 70-[address] [facility] Comment on above: Order Comment: No: D o not add to previous draw Performed By: #### 0 0071, 77440, 35388 #### [facility] [address] [place] [address], [facility] Potassium molar conc 4.0 mmol/L Normal 3.5-5.[address] [facility] Comment on above: Order Comment: No: D o not add to previous draw Performed By: #### 0 0071, 23198, 50999 #### [facility] [address] [place] [address], [facility] Sodium molar conc 135 mmol/L Low 136-[address] [facility] Comment on above: Order Comment: No: D o not add to previous draw Performed By: #### 0 0071, 99950, 47392 #### [facility] [address] [place] [address], [facility] Urea nitrogen mass conc 10 mg/dL Normal 7-[address] [facility] Comment on above: Order Comment: No: D o not add to previous draw Performed By: #### 0 0071, 51485, 87764 #### [facility] [address] CBC COMPLETE BLOOD COUNTon 0 - Erythrocyte distribution width Ratio (RBC) 15.0 % Normal 11.5-15.0 [facility] Comment on above: Order Comment: No: D o not add to previous draw Performed By: #### 0 0071, 30652, 12486 #### [facility] [address] [place] [id number], [facility] Hematocrit Volume Fraction (Bld) 32.2 % Low 39.0-50.[address] [facility] Comment on above: Order Comment: No: D o not add to previous draw Performed By: #### 0 0071, 73814, 05804 #### [facility] [address] Hemoglobin mass conc (Bld) 10.4 g/dL Low 13.0-17.[address] [facility] Comment on above: Order Comment: No: D o not add to previous draw Performed By: #### 0 0071, 99735, 92853 #### [facility] [address] [facility] [address] MCH Entitic mass (RBC) 31.1 pg Normal 27.0-33.[address] [facility] Comment on above: Order Comment: No: D o not add to previous draw Performed By: #### 0 0071, 21106, 74455 #### [facility] [address] MCHC mass conc (RBC) 32.3 g/dL Normal 32.0-35.[address] [facility] Comment on above: Order Comment: No: D o not add to previous draw Performed By: #### 0 0071, 54898, 36786 #### [facility] [address] MCV Entitic volume (RBC) 96.4 fL Normal 82.0-98.[address] [facility] Comment on above: Order Comment: No: D o not add to previous draw Performed By: #### 0 0071, 61670, 71691 #### [facility] [address] Nucleated RBC/100 WBC Ratio (Bld) 0 % Normal 0-[address] [facility] Comment on above: Order Comment: No: D o not add to previous draw Performed By: #### 0 0071, 52351, 02263 #### [facility] 3000 [place] [address], [facility] PLAT CNT 166 10*3/uL Normal 150-[address] [facility] Comment on above: Order Comment: No: D o not add to previous draw Performed By: #### 0 0071, 93390, 77552 #### [facility] [address] [facility] RBC #/vol (Bld) 3.34 10*6/uL Low 4.20-5.[address] [facility] Comment on above: Order Comment: No: D o not add to previous draw Performed By: #### 0 0071, 97342, 94111 #### [facility] 3000 [facility]. [address] WBC #/vol (Bld) 8.05 10*3/uL Normal 4.00-10.[address] [facility] Comment on above: Order Comment: No: D o not add to previous draw Performed By: #### 0 0071, 54134, 56464 #### [facility] 3000 [facility]. [address] CBC W/DIFFon 12-29-2017 ABS BASOPHILS 0.1 10*3/uL Normal 0.0-0.[address] [facility] Comment on above: Order Comment: No: D o not add to previous draw Performed By: #### 0 0071, 26121, 56105 #### [facility] 3000 [facility]. [address] ABS IMM GRANS 0.2 10*3/uL Normal 0.0-0.[address] [facility] Comment on above: Order Comment: No: D o not add to previous draw Performed By: #### 0 0071, 09611, 84615 #### [facility] 3000 [facility]. [address] ABS NEUTROPHILS 10.7 10*3/uL High 1.6-7.[address] [facility] Comment on above: Order Comment: No: D o not add to previous draw Performed By: #### 0 0071, 98885, 01520 #### [facility] 3000 [place] [address], [facility] Basophils #/vol (Bld) 0.8 % Normal 0.0-1.[address] [facility] Comment on above: Order Comment: No: D o not add to previous draw Performed By: #### 0 0071, 93226, 88946 #### [facility] [address] [place] [address], [facility] Eosinophils #/vol (Bld) 0.1 10*3/uL Normal 0.0-0.[address] [facility] Comment on above: Order Comment: No: D o not add to previous draw Performed By: #### 0 0071, 99816, 33865 #### [facility] [address] [place] [address], [facility] Eosinophils/100 WBC (Bld) 1.1 % Normal 0.0-6.[address] [facility] Comment on above: Order Comment: No: D o not add to previous draw Performed By: #### 0 0071, 52182, 79375 #### [facility] 3000 [facility] [address] Erythrocyte distribution width Ratio (RBC) 15.2 % High 11.5-15.[address] [facility] Comment on above: Order Comment: No: D o not add to previous draw Performed By: #### 0 0071, 77992, 80738 #### [facility] 3000 [facility] [place] [address], [facility] Hematocrit Volume Fraction (Bld) 33.0 % Low 39.0-50.[address] [facility] Comment on above: Order Comment: No: D o not add to previous draw Performed By: #### 0 0071, 51368, 63313 #### [facility] [address] [place] [address], [facility] Hemoglobin mass conc (Bld) 10.5 g/dL Low 13.0-17.[address] [facility] Comment on above: Order Comment: No: D o not add to previous draw Performed By: #### 0 0071, 35531, 25602 #### [facility] [address] [place] [id number], [place] IMMATURE GRANS 1.5 % High 0.0-1.[address] [facility] Comment on above: Order Comment: No: D o not add to previous draw Performed By: #### 0 0071, 67383, 63533 #### [facility] [address] Lymphocytes #/vol (Bld) 0.6 10*3/uL Low 1.2-4.[address] [facility] Comment on above: Order Comment: No: D o not add to previous draw Performed By: #### 0 0071, 82983, 22213 #### [facility] 3000 [facility] [address] Lymphocytes/100 WBC (Bld) 4.6 % Low 20.0-45.[address] [facility] Comment on above: Order Comment: No: D o not add to previous draw Performed By: #### 0 0071, 24668, 40608 #### [facility] [address] [facility] [address] MCH Entitic mass (RBC) 30.6 pg Normal 27.0-33.[address] [facility] Comment on above: Order Comment: No: D o not add to previous draw Performed By: #### 0 0071, 32870, 39468 #### [facility] [address] [facility] [address] MCHC mass conc (RBC) 31.8 g/dL Low 32.0-35.[address] [facility] Comment on above: Order Comment: No: D o not add to previous draw Performed By: #### 0 0071, 61107, 96849 #### [facility] [address] [facility] [place] [address], [facility] MCV Entitic volume (RBC) 96.2 fL Normal 82.0-98.[address] [facility] Comment on above: Order Comment: No: D o not add to previous draw Performed By: #### 0 0071, 25847, 37982 #### [facility] [address] [place] [address], [facility] Monocytes #/vol (Bld) 0.6 10*3/uL Normal 0.1-1.[address] [facility] Comment on above: Order Comment: No: D o not add to previous draw Performed By: #### 0 0071, 33646, 14887 #### [facility] [address] [place] [address], [facility] MONOS 5.0 % Normal 5.0-12.[address] [facility] Comment on above: Order Comment: No: D o not add to previous draw Performed By: #### 0 0071, 65082, 43276 #### [facility] [address] [facility] [place] [address], [facility] Neutrophils/100 WBC (Bld) 87.0 % High 40.0-72.[address] [facility] Comment on above: Order Comment: No: D o not add to previous draw Performed By: #### 0 0071, 00164, 60364 #### [facility] [address] [facility] [place] [address], [facility] Nucleated RBC/100 WBC Ratio (Bld) 0 % Normal 0-[address] [facility] Comment on above: Order Comment: No: D o not add to previous draw Performed By: #### 0 0071, 23212, 16682 #### [facility] 3000 [place] [address], [facility] PLAT CNT 203 10*3/uL Normal 150-[address] [facility] Comment on above: Order Comment: No: D o not add to previous draw Performed By: #### 0 0071, 61609, 65702 #### [facility] [address] [facility] [place] [address], [facility] RBC #/vol (Bld) 3.43 10*6/uL Low 4.20-5.[address] [facility] Comment on above: Order Comment: No: D o not add to previous draw Performed By: #### 0 0071, 53476, 57216 #### [facility] [address] [place] [address], [facility] WBC #/vol (Bld) 12.28 10*3/uL High 4.00-10.[address] [facility] Comment on above: Order Comment: No: D o not add to previous draw Performed By: #### 0 0071, 09671, 95304 #### [facility] [address] [place] [address], [facility] LACTATE BLOODon 12-29-2017 Lactate molar conc 0.6 mmol/L Normal .5-2.[address] [facility] Comment on above: Order Comment: No: D o not add to previous draw Performed By: #### 5 0608 #### [facility] [address] [facility] [place] [address], [facility] MAGNESIUM BLOODon 12-29-2017 Magnesium mass conc 1.6 mg/dL Low 1.9-2.[address] [facility] Comment on above: Order Comment: No: D o not add to previous draw Performed By: #### 0 0071, 14272, 65899 #### [facility] [address] [facility] [place] [address], [facility] Magnesium mass conc 1.7 mg/dL Low 1.9-2.[address] [facility] Comment on above: Order Comment: No: D o not add to previous draw Performed By: #### 0 0071, 33466, 67902 #### [facility] [address] [facility] [address], [facility] OSMOLALITY BLOODon 8 Osmolality 292 mOsm/kg Normal 285-[address] [facility] Comment on above: Performed By: #### 0 0071, 27132, 44989 #### [facility] [address] [place] [address], [facility] PERFUSION BLOOD PANELon 12-12 BASE EXCESS -2.0 mmol/L Normal -2.0-3.[address] [facility] Comment on above: Performed By: #### 0 0071, 87090, 22633 #### [facility] [address] [place] [address], [facility] Glucose mass conc 98 mg/dL Normal 70-[address] [facility] Comment on above: Performed By: #### 0 0071, 49910, 39334 #### [facility] [address] [place] [address], [facility] Hematocrit Volume Fraction (Bld) 37 % Low 38-[address] [facility] Comment on above: Performed By: #### 0 0071, 00590, 60558 #### [facility] [address] [place] [address], [facility] Hemoglobin mass conc (Bld) 12.6 g/dL Normal 12.0-17.[address] [facility] Comment on above: Performed By: #### 0 0071, 14423, 68623 #### [facility] [address] [place] [address], [facility] IONIZED CALCIUM 1.32 mmol/L Normal 1.12-1.[address] [facility] Comment on above: Performed By: #### 0 0071, 09263, 71437 #### [facility] [address] [place] [address], [facility] Oxygen ppres (Bld) 184.0 mm[Hg] High 80.0-105.[address] [facility] Comment on above: Performed By: #### 0 0071, 38994, 43670 #### [facility] [address] [place] [address], [facility] PCO2 36.8 mmHg Normal 35.0-45.[address] [facility] Comment on above: Performed By: #### 0 0071, 11652, 71879 #### [facility] [address] [place] [address], [facility] pH (Bld) 7.40 [pH] Normal 7.35-7.[address] [facility] Comment on above: Performed By: #### 0 0071, 81455, 45767 #### [facility] [address] [place] [address], [facility] Potassium molar conc 3.9 mmol/L Normal 3.5-4.[address] [facility] Comment on above: Performed By: #### 0 0071, 25273, 39617 #### [facility] [address] [place] [address], [facility] Sodium molar conc 143 mmol/L Normal 138-[address] [facility] Comment on above: Performed By: #### 0 0071, 73574, 38762 #### [facility] [address] [place] [address], [facility] BASE EXCESS -3.0 mmol/L Low -2.0-3.[address] [facility] Comment on above: Performed By: #### 0 0071, 44991, 01031 #### [facility] [address] [facility] [place] [address], [facility] Glucose mass conc 71 mg/dL Normal 70-[address] [facility] Comment on above: Performed By: #### 0 0071, 55549, 27462 #### [facility] [address] [place] [address], [facility] Hematocrit Volume Fraction (Bld) 29 % Low 38-[address] [facility] Comment on above: Performed By: #### 0 0071, 95303, 38545 #### [facility] [address] [facility] [place] [address], [facility] Hemoglobin mass conc (Bld) 9.9 g/dL Low 12.0-17.[address] [facility] Comment on above: Performed By: #### 0 0071, 01589, 10095 #### [facility] [address] [place] [address], [facility] IONIZED CALCIUM 1.27 mmol/L Normal 1.12-1.[address] [facility] Comment on above: Performed By: #### 0 0071, 50654, 38093 #### [facility] [address] [place] [address], [facility] Oxygen ppres (Bld) 105.0 mm[Hg] Normal 80.0-105.[address] [facility] Comment on above: Performed By: #### 0 0071, 86373, 28115 #### [facility] [address] [place] [address], [facility] PCO2 64.6 mmHg High 35.0-45.[address] [facility] Comment on above: Performed By: #### 0 0071, 41490, 16070 #### [facility] [address] [place] [address], [facility] pH (Bld) 7.20 [pH] Low 7.35-7.[address] [facility] Comment on above: Performed By: #### 0 0071, 28763, 38017 #### [facility] [address] [place] [address], [facility] Potassium molar conc 4.2 mmol/L Normal 3.5-4.[address] [facility] Comment on above: Performed By: #### 0 0071, 44564, 70078 #### [facility] [address] [place] [address], [facility] Sodium molar conc 138 mmol/L Normal 138-[address] [facility] Comment on above: Performed By: #### 0 0071, 34862, 59667 #### [facility] [address] [place] [address], [facility] PHOSPHORUS BLOODon 8 Phosphate mass conc 4.2 mg/dL Normal 2.5-5.[address] [facility] Comment on above: Order Comment: No: D o not add to previous draw Performed By: #### 0 0071, 01709, 73146 #### [facility] [address] [place] [address], [facility] Phosphate mass conc 3.8 mg/dL Normal 2.5-5.[address] [facility] Comment on above: Order Comment: No: D o not add to previous draw Performed By: #### 0 0071, 82545, 98765 #### [place] [address], [facility] POC GLUCOSE LABon 12-29-2017 Glucose mass conc 94 mg/dL Normal 70-[address] [facility] Comment on above: Performed By: #### 5 0608 #### [facility] [address] [place] [address], [facility] Glucose mass conc 78 mg/dL Normal 70-[address] [facility] Comment on above: Performed By: #### 5 0608 #### [facility] [address] [place] [address], [facility] PORTABLE CHEST 1 VIEWon 12-12 PORTABLE CHEST 1 VIEW [facility] Department of Radiology [address] [place] [id number] ======== Patient Name: MELBA LEVY : 1955 Sex: M Age: Race: White Pt. Location: [address] [place] [address] Patient Status: I Ordered Date: 12/29/2017 1:55:00 PM Completed Date: 12/29/2017 02:28 PM Requesting Provider: ERICK UGARTE Attending Provider: MELODY CHISHOLM Report Copy To: Signs & Symptoms: Post OP History: Patient history not available Comments: Check Chest Tube Position, check lines and tubes Exam: PORTABLE CHEST 1 VIEW ======== PORTABLE CHEST 1 VIEW 12/29/2017 2:28 PM EDT SIGNS AND SYMPTOMS: Post OP TECHNOLOGIST COMMENTS: check chest tube position QUESTION FOR THE RADIOLOGIST: Check Chest Tube Position, check lines and tubes PROTOCOL: AP(PA) view was obtained. COMPARISON: December 29 601 hours FINDINGS: There are now 2 chest tubes on the right and both on a new position in the upper outer pleural surface. There is better expansion now of the right lung. No subpulmonic effusion pneumothorax is noted. No apical pneumothorax is seen. There is a tiny effusion. Bilateral perihilar infiltrates with lower lobe infiltrates noted once again. ET tube is in satisfactory position. Feeding tube remains in the stomach. The heart is not enlarged for AP technique. IMPRESSION: Satisfactory placement of second chest tube. Readjustment of first chest tube. No pneumothorax noted. Infiltrates are noted both perihilar and basilar. This could represent congestive heart failure with pulmonary edema or a combination of pulmonary edema and superimposed basilar pneumonia. Electronically signed by:Robert Moya. Transcribed by: [email or web address], User Resident: Electronically Signed by: ROBERT MOYA @ 12/29/2017 03:05 PM Normal [facility] Comment on above: Order Comment: No: D o not add to previous draw PORTABLE CHEST 1 VIEW [facility] Department of Radiology [address] [place] [id number] ======== Patient Name: MELBA LEVY : 1955 Sex: M Age: Race: White Pt. Location: [id number] Patient Status: I Ordered Date: 12/29/2017 5:00:00 AM Completed Date: 12/29/2017 06:30 AM Requesting Provider: ERICK UGARTE Attending Provider: MELODY CHISHOLM Report Copy To: Signs & Symptoms: Productive Cough History: Patient history not available Comments: R/O Effusion, abg Exam: PORTABLE CHEST 1 VIEW ======== PORTABLE CHEST 1 VIEW 12/29/2017 6:30 AM EDT SIGNS AND SYMPTOMS: Productive Cough TECHNOLOGIST COMMENTS: patient has a productive cough per ordering physician QUESTION FOR THE RADIOLOGIST: R/O Effusion, abg PROTOCOL: AP(PA) view was obtained. COMPARISON: December 28 FINDINGS: Bilateral perihilar infiltrates are noted greater on the right. Right chest tube has been advanced and is in good position. Heart is mildly enlarged. Sternal wires are intact. Patient is rotated slightly to the right. There are bilateral pleural effusions with loculation on the right. IMPRESSION: Probable pulmonary edema with congestive heart failure. Cannot exclude superimposed pneumonia. The more unusual appearance on CT chest therefore is confirmed to most likely represent acute pulmonary edema. No pneumothorax. Electronically signed by:Robert Moya. Transcribed by: [email or web address], User Resident: Electronically Signed by: ROBERT MOYA @ 12/29/2017 09:46 AM Normal [facility] Comment on above: Order Comment: No: D o not add to previous draw TRIGLYCERIDES BLOODon 2017 Triglyceride mass conc 108 mg/dL Normal 40-[address] [facility] Comment on above: Result Comment: TRIG LYCERIDE REFERENCE RANGE: 20 YEARS AND OLDER CARDIOVASCULAR RISK LESS THAN 150 mg/dl LOW RISK 150 TO 199 mg/dl BORDERLINE RISK 200 mg/dl AND GREATER HIGH RISK Performed By: #### 0 0071, 36774, 33933 #### [facility] [address] [place] [address], [facility] *BLOOD CULTUREon 12-28-2017 Bacteria identified Cx Nom (Bld) Clinical Report: (D) Specimen: BLOOD CULTURE Collected: 12/28/2017 11:05 Status: Final Last Updated: 01/02/2018 15:40 CULT RES (Final) No Growth Day [address] [facility] Comment on above: Performed By: #### 0 0071, 66546, 08377 #### [facility] [address] [facility]. [address] Bacteria identified Cx Nom (Bld) Clinical Report: (D) Specimen: BLOOD CULTURE Collected: 12/28/2017 08:52 Status: Final Last Updated: 01/02/2018 15:40 CULT RES (Final) No Growth Day 5 Normal [address] [facility] Comment on above: Performed By: #### 0 0071, 69069, 40317 #### [facility] [address] ARTERIAL BLOOD GAS WITH ICAo n 12-28-2017 BASE EXCESS -2 mmol/L Normal -2-[address] [facility] Comment on above: Order Comment: RESUL TS CHECKED AND CALLED. ACCURATELY READ BACK BY KATIA KNOX Performed By: #### 8 5499 #### [facility] [address] [facility] [address] DELIVERY SYSTEMS HIGH FLOW NASAL CANNULA Normal [facility] Comment on above: Order Comment: RESUL TS CHECKED AND CALLED. ACCURATELY READ BACK BY KATIA KNOX Performed By: #### 8 5499 #### [facility] [address] [facility] [address], [facility] FIO2 60 % Normal 21-[address] [facility] Comment on above: Order Comment: RESUL TS CHECKED AND CALLED. ACCURATELY READ BACK BY KATIA KNOX Performed By: #### 8 5499 #### [facility] [address] [place] [address], [facility] HCO3 molar conc (Bld) 25 mmol/L Normal 23-[address] [facility] Comment on above: Order Comment: RESUL TS CHECKED AND CALLED. ACCURATELY READ BACK BY KATIA KNOX Performed By: #### 8 5499 #### [facility] [address] [place] [address], [facility] IONIZED CALCIUM 1.33 mmol/L High 1.13-1.[address] [facility] Comment on above: Order Comment: RESUL TS CHECKED AND CALLED. ACCURATELY READ BACK BY KATIA KNOX Performed By: #### 8 5499 #### [facility] [address] [place] [address], [facility] LPM 40.0 LPM High 0.5-20.[address] [facility] Comment on above: Order Comment: RESUL TS CHECKED AND CALLED. ACCURATELY READ BACK BY KATIA KNOX Performed By: #### 8 5499 #### [facility] [address] [place] [address], [facility] Oxygen ppres (Bld) 83 mm[Hg] Normal 75-[address] [facility] Comment on above: Order Comment: RESUL TS CHECKED AND CALLED. ACCURATELY READ BACK BY KATIA KNOX Performed By: #### 8 5499 #### [facility] [address] [place] [address], [facility] Oxygen saturation in Blood 94.4 % Normal 94.0-97.[address] [facility] Comment on above: Order Comment: RESUL TS CHECKED AND CALLED. ACCURATELY READ BACK BY KATIA KNOX Performed By: #### 8 5499 #### [facility] [address] [place] [address], [facility] PCO2 56 mmHg Critically high 35-[address] [facility] Comment on above: Order Comment: RESUL TS CHECKED AND CALLED. ACCURATELY READ BACK BY KATIA KNOX Performed By: #### 8 5499 #### [facility] [address] [place] [address], [facility] pH (Bld) 7.26 [pH] Low 7.35-7.[address] [facility] Comment on above: Order Comment: RESUL TS CHECKED AND CALLED. ACCURATELY READ BACK BY KATIA KNOX Performed By: #### 8 5499 #### [facility] [address] [place] [address], [facility] BASE EXCESS -3 mmol/L Low -2-[address] [facility] Comment on above: Order Comment: RESUL TS CHECKED AND CALLED. ACCURATELY READ BACK BY KATIA KNOX Performed By: #### 8 5499 #### [facility] [address] [place] [address], [facility] DELIVERY SYSTEMS NON-REBREATHER Normal [facility] Comment on above: Order Comment: RESUL TS CHECKED AND CALLED. ACCURATELY READ BACK BY KATIA KNOX Performed By: #### 8 [id number] #### [facility] [address] [place] [address], [facility] HCO3 molar conc (Bld) 25 mmol/L Normal 23-[address] [facility] Comment on above: Order Comment: RESUL TS CHECKED AND CALLED. ACCURATELY READ BACK BY KATIA KNOX Performed By: #### 8 5499 #### [facility] [address] [place] [address], [facility] IONIZED CALCIUM 1.32 mmol/L Normal 1.13-1.[address] [facility] Comment on above: Order Comment: RESUL TS CHECKED AND CALLED. ACCURATELY READ BACK BY KATIA KNOX Performed By: #### 8 [id number] #### [facility] [address] [place] [address], [facility] LPM 15.0 LPM Normal 0.5-20.[address] [facility] Comment on above: Order Comment: RESUL TS CHECKED AND CALLED. ACCURATELY READ BACK BY KATIA KNOX Performed By: #### 8 [id number] #### [facility] [address] [place] [address], [place] Oxygen ppres (Bld) 46 mm[Hg] Critically low 75-[address] [facility] Comment on above: Order Comment: RESUL TS CHECKED AND CALLED. ACCURATELY READ BACK BY KATIA KNOX Performed By: #### 8 [id number] #### [facility] [address] [place] [address], [facility] Oxygen saturation in Blood 81.0 % Critically low 94.0-97.[address] [facility] Comment on above: Order Comment: RESUL TS CHECKED AND CALLED. ACCURATELY READ BACK BY KATIA KNOX Performed By: #### 8 [id number] #### [facility] [address] [place] [address], [facility] PCO2 57 mmHg Critically high 35-[address] [facility] Comment on above: Order Comment: RESUL TS CHECKED AND CALLED. ACCURATELY READ BACK BY KATIA KNOX Performed By: #### 8 [id number] #### [facility] [address] [place] [address], [facility] pH (Bld) 7.25 [pH] Low 7.35-7.[address] [facility] Comment on above: Order Comment: RESUL TS CHECKED AND CALLED. ACCURATELY READ BACK BY KATIA KNOX Performed By: #### 8 [id number] #### [facility] [address] [place] [address], [facility] BASIC METABOLIC PANELon 06- Calcium mass conc 8.3 mg/dL Low 8.6-10.[address] [facility] Comment on above: Order Comment: No: D o not add to previous draw Performed By: #### 0 0071, 75500, 07468 #### [facility] 3000 [place] [address], [facility] Chloride molar conc 105 mmol/L Normal 98-[address] [facility] Comment on above: Order Comment: No: D o not add to previous draw Performed By: #### 0 0071, 33348, 67660 #### [facility] [address] [place] [address], [place] CO2 molar conc 27 mmol/L Normal 21-[address] [facility] Comment on above: Order Comment: No: D o not add to previous draw Performed By: #### 0 0071, 41742, 24393 #### [facility] [address] [place] [address], [place] Creatinine mass conc 0.50 mg/dL Low 0.70-1.[address] [facility] Comment on above: Order Comment: No: D o not add to previous draw Performed By: #### 0 0071, 94877, 87911 #### [facility] [address] [place] [address], [place] GFR/1.73 sq M predicted among blacks MDRD vol rate/area (S/P/Bld) mL/min/{1.73_m2} Normal >[address] [facility] Comment on above: Order Comment: No: D o not add to previous draw Performed By: #### 0 0071, 60489, 62782 #### [facility] [address] [place] [address], [facility] GFR/1.73 sq M predicted among non-blacks MDRD vol rate/area (S/P/Bld) mL/min/{1.73_m2} Normal >[address] [facility] Comment on above: Order Comment: No: D o not add to previous draw Performed By: #### 0 0071, 04945, 19161 #### [facility] [address] [place] [address], [facility] Glucose mass conc 100 mg/dL Normal 70-[address] [facility] Comment on above: Order Comment: No: D o not add to previous draw Performed By: #### 0 0071, 53741, 66122 #### [facility] [address] [place] [address], [place] Potassium molar conc 3.9 mmol/L Normal 3.5-5.[address] [facility] Comment on above: Order Comment: No: D o not add to previous draw Performed By: #### 0 0071, 17277, 98161 #### [facility] [address] [place] [address], [place] Sodium molar conc 132 mmol/L Low 136-[address] [facility] Comment on above: Order Comment: No: D o not add to previous draw Performed By: #### 0 0071, 78400, 50250 #### [facility] [address] [place] [address], [place] Urea nitrogen mass conc 10 mg/dL Normal 7-[address] [facility] Comment on above: Order Comment: No: D o not add to previous draw Performed By: #### 0 0071, 09719, 30711 #### [facility] [address] [place] [address], [place] Calcium mass conc 8.7 mg/dL Normal 8.6-10.[address] [facility] Comment on above: Order Comment: No: D o not add to previous draw Performed By: #### 8 [id number] #### [facility] [address] [place] [address], [place] Chloride molar conc 104 mmol/L Normal 98-[address] [facility] Comment on above: Order Comment: No: D o not add to previous draw Performed By: #### 8 [id number] #### [facility] [address] [place] [address], [place] CO2 molar conc 25 mmol/L Normal 21-[address] [facility] Comment on above: Order Comment: No: D o not add to previous draw Performed By: #### 8 [id number] #### [facility] [address] [place] [address], [place] Creatinine mass conc 0.64 mg/dL Low 0.70-1.[address] [facility] Comment on above: Order Comment: No: D o not add to previous draw Performed By: #### 8 [id number] #### [facility] [address] [place] [address], [place] GFR/1.73 sq M predicted among blacks MDRD vol rate/area (S/P/Bld) mL/min/{1.73_m2} Normal >[address] [facility] Comment on above: Order Comment: No: D o not add to previous draw Performed By: #### 8 [id number] #### [facility] [address] [place] [address], [facility] GFR/1.73 sq M predicted among non-blacks MDRD vol rate/area (S/P/Bld) mL/min/{1.73_m2} Normal >[address] [facility] Comment on above: Order Comment: No: D o not add to previous draw Performed By: #### 8 [id number] #### [facility] [address] [place] [address], [facility] Glucose mass conc 88 mg/dL Normal 70-[address] [facility] Comment on above: Order Comment: No: D o not add to previous draw Performed By: #### 8 [id number] #### [facility] [address] [place] [address], [facility] Potassium molar conc 3.9 mmol/L Normal 3.5-5.[address] [facility] Comment on above: Order Comment: No: D o not add to previous draw Performed By: #### 8 [id number] #### [facility] [address] [place] [address], [place] Sodium molar conc 132 mmol/L Low 136-[address] [facility] Comment on above: Order Comment: No: D o not add to previous draw Performed By: #### 8 [id number] #### [facility] [address] [place] [address], [facility] Urea nitrogen mass conc 12 mg/dL Normal 7-[address] [facility] Comment on above: Order Comment: No: D o not add to previous draw Performed By: #### 8 [id number] #### [facility] [address] [place] [address], [place] CBC COMPLETE BLOOD COUNTon 0 - Erythrocyte distribution width Ratio (RBC) 14.7 % Normal 11.5-15.[address] [facility] Comment on above: Order Comment: No: D o not add to previous draw Performed By: #### 0 0071, 98858, 30647 #### [facility] [address] Hematocrit Volume Fraction (Bld) 29.6 % Low 39.0-50.[address] [facility] Comment on above: Order Comment: No: D o not add to previous draw Performed By: #### 0 0071, 38278, 19645 #### [facility] [address] [place] [id number], [facility] Hemoglobin mass conc (Bld) 9.8 g/dL Low 13.0-17.[address] [facility] Comment on above: Order Comment: No: D o not add to previous draw Performed By: #### 0 0071, 95072, 79638 #### [facility] [address] [facility] [place] [address], [facility] MCH Entitic mass (RBC) 31.0 pg Normal 27.0-33.[address] [facility] Comment on above: Order Comment: No: D o not add to previous draw Performed By: #### 0 0071, 21308, 68224 #### [facility] [address] [facility] [place] [address], [facility] MCHC mass conc (RBC) 33.1 g/dL Normal 32.0-35.[address] [facility] Comment on above: Order Comment: No: D o not add to previous draw Performed By: #### 0 0071, 27935, 73383 #### [facility] [address] [place] [address], [facility] MCV Entitic volume (RBC) 93.7 fL Normal 82.0-98.[address] [facility] Comment on above: Order Comment: No: D o not add to previous draw Performed By: #### 0 0071, 88893, 75685 #### [facility] [address] [place] [address], [facility] Nucleated RBC/100 WBC Ratio (Bld) 0 % Normal 0-[address] [facility] Comment on above: Order Comment: No: D o not add to previous draw Performed By: #### 0 0071, 00268, 36699 #### [facility] [address] [place] [address], [facility] PLAT CNT 154 10*3/uL Normal 150-[address] [facility] Comment on above: Order Comment: No: D o not add to previous draw Performed By: #### 0 0071, 21915, 36479 #### [facility] [address] [place] [address], [facility] RBC #/vol (Bld) 3.16 10*6/uL Low 4.20-5.[address] [facility] Comment on above: Order Comment: No: D o not add to previous draw Performed By: #### 0 0071, 51858, 85761 #### [facility] [address] [place] [address], [facility] WBC #/vol (Bld) 8.87 10*3/uL Normal 4.00-10.[address] [facility] Comment on above: Order Comment: No: D o not add to previous draw Performed By: #### 0 0071, 85021, 80815 #### [facility] [address] [place] [address], [facility] Erythrocyte distribution width Ratio (RBC) CANCELED Normal 11.5-15.[address] [facility] Comment on above: Order Comment: No: D o not add to previous drawdiluted specimen Result Comment: The released value 15.0 was canceled by RHENRY on 12/28/2017 06:38 Performed By: #### 8 [id number] #### [facility] [address] [place] [address], [facility] Hematocrit Volume Fraction (Bld) CANCELED Normal 39.0-50.[address] [facility] Comment on above: Order Comment: No: D o not add to previous drawdiluted specimen Result Comment: The released value 27.7 was canceled by RHENRY on 12/28/2017 06:38 Performed By: #### 8 [id number] #### [facility] [address] [place] [address], [facility] Hemoglobin mass conc (Bld) CANCELED Normal 13.0-17.[address] [facility] Comment on above: Order Comment: No: D o not add to previous drawdiluted specimen Result Comment: The released value 9.0 was canceled by RHENRY on 12/28/2017 06:38 Performed By: #### 8 [id number] #### [facility] [address] [place] [address], [facility] [place] CANCELED Normal [facility] Comment on above: Order Comment: No: D o not add to previous drawdiluted specimen Performed By: #### 8 [id number] #### [facility] [address] [place] [address], [facility] IMM PLATELET FRAC CANCELED Normal [facility] Comment on above: Order Comment: No: D o not add to previous drawdiluted specimen Performed By: #### 8 [id number] #### [facility] [address] [place] [address], [facility] MCH Entitic mass (RBC) CANCELED Normal 27.0-33.[address] [facility] Comment on above: Order Comment: No: D o not add to previous drawdiluted specimen Result Comment: The released value 30.9 was canceled by RHENRY on 12/28/2017 06:38 Performed By: #### 8 [id number] #### [facility] [address] [place] [address], [facility] MCHC mass conc (RBC) CANCELED Normal 32.0-35.[address] [facility] Comment on above: Order Comment: No: D o not add to previous drawdiluted specimen Result Comment: The released value 32.5 was canceled by RHENRY on 12/28/2017 06:38 Performed By: #### 8 [id number] #### [facility] [address] [place] [address], [facility] MCV Entitic volume (RBC) CANCELED Normal 82.0-98.[address] [facility] Comment on above: Order Comment: No: D o not add to previous drawdiluted specimen Result Comment: The released value 95.2 was canceled by RHENRY on 12/28/2017 06:38 Performed By: #### 8 [id number] #### [facility] [address] [place] [address], [facility] NRBC SCAN CANCELED Normal [facility] Comment on above: Order Comment: No: D o not add to previous drawdiluted specimen Performed By: #### 8 [id number] #### [facility] [address] [place] [address], [facility] Nucleated RBC/100 WBC Ratio (Bld) CANCELED Normal 0-[address] [facility] Comment on above: Order Comment: No: D o not add to previous drawdiluted specimen Result Comment: The released value 0 was canceled by RHENRY on 12/28/2017 06:38 Performed By: #### 8 [id number] #### [facility] [address] [place] [address], [place] PLAT CNT CANCELED Normal 150-[address] [facility] Comment on above: Order Comment: No: D o not add to previous drawdiluted specimen Result Comment: The released value 143 was canceled by RHENRY on 12/28/2017 06:38 Performed By: #### 8 [id number] #### [facility] [address] [place] [address], [facility] PLAT ESTIMATE CANCELED Normal [facility] Comment on above: Order Comment: No: D o not add to previous drawdiluted specimen Performed By: #### 8 [id number] #### [facility] [address] [place] [address], [place] RBC #/vol (Bld) CANCELED Normal 4.20-5.[address] [facility] Comment on above: Order Comment: No: D o not add to previous drawdiluted specimen Result Comment: The released value 2.91 was canceled by RHENRY on 12/28/2017 06:38 Performed By: #### 8 [id number] #### [facility] [address] WBC #/vol (Bld) CANCELED Normal 4.00-10.[address] [facility] Comment on above: Order Comment: No: D o not add to previous drawdiluted specimen Result Comment: The released value 7.70 was canceled by BIANCA on 12/28/2017 06:38 Performed By: #### 8 [id number] #### [facility] [address] CBC W/DIFFon 12-28-2017 ABS BASOPHILS 0.0 10*3/uL Normal 0.0-0.[address] [facility] Comment on above: Performed By: #### 8 [id number] #### [facility] [address] ABS IMM GRANS 0.2 10*3/uL Normal 0.0-0.[address] [facility] Comment on above: Performed By: #### 8 [id number] #### [facility] [address] ABS NEUTROPHILS 6.7 10*3/uL Normal 1.6-7.[address] [facility] Comment on above: Performed By: #### 8 5499 #### [facility] [address] [facility] Basophils #/vol (Bld) 0.5 % Normal 0.0-1.[address] [facility] Comment on above: Performed By: #### 8 [id number] #### [facility] [address] [facility] Eosinophils #/vol (Bld) 0.2 10*3/uL Normal 0.0-0.[address] [facility] Comment on above: Performed By: #### 8 [id number] #### [facility] [address] [place] [address], [facility] Eosinophils/100 WBC (Bld) 2.6 % Normal 0.0-6.[address] [facility] Comment on above: Performed By: #### 8 [id number] #### [facility] [address] [facility] [address] Erythrocyte distribution width Ratio (RBC) 14.8 % Normal 11.5-15.[address] [facility] Comment on above: Performed By: #### 8 [id number] #### [facility] [address] [facility] [address] Hematocrit Volume Fraction (Bld) 34.6 % Low 39.0-50.[address] [facility] Comment on above: Performed By: #### 8 [id number] #### [facility] [address] [facility] [address] Hemoglobin mass conc (Bld) 11.3 g/dL Low 13.0-17.[address] [facility] Comment on above: Performed By: #### 8 [id number] #### [facility] [address] [facility]. [address] IMMATURE GRANS 2.4 % High 0.0-1.[address] [facility] Comment on above: Performed By: #### 8 [id number] #### [facility] [address] [facility] [address] Lymphocytes #/vol (Bld) 0.6 10*3/uL Low 1.2-4.[address] [facility] Comment on above: Performed By: #### 8 [id number] #### [facility] [address] [facility] [place] [address], [facility] Lymphocytes/100 WBC (Bld) 7.7 % Low 20.0-45.[address] [facility] Comment on above: Performed By: #### 8 [id number] #### [facility] [address] [place] [address], [facility] MCH Entitic mass (RBC) 30.6 pg Normal 27.0-33.[address] [facility] Comment on above: Performed By: #### 8 [id number] #### [facility] [address] [facility] MCHC mass conc (RBC) 32.7 g/dL Normal 32.0-35.[address] [facility] Comment on above: Performed By: #### 8 [id number] #### [facility] [address] [facility] MCV Entitic volume (RBC) 93.8 fL Normal 82.0-98.[address] [facility] Comment on above: Performed By: #### 8 [id number] #### [facility] [address] [facility] Monocytes #/vol (Bld) 0.5 10*3/uL Normal 0.1-1.[address] [facility] Comment on above: Performed By: #### 8 [id number] #### [facility] [address] [facility] MONOS 6.5 % Normal 5.0-12.[address] [facility] Comment on above: Performed By: #### 8 5499 #### [facility] [address] Neutrophils/100 WBC (Bld) 80.3 % High 40.0-72.[address] [facility] Comment on above: Performed By: #### 8 [id number] #### [facility] [address] [facility] Nucleated RBC/100 WBC Ratio (Bld) 0 % Normal 0-[address] [facility] Comment on above: Performed By: #### 8 [id number] #### [facility] [address] [place] [address], [facility] PLAT CNT 179 10*3/uL Normal 150-[address] [facility] Comment on above: Performed By: #### 8 5499 #### [facility] [address] [place] [address], [facility] RBC #/vol (Bld) 3.69 10*6/uL Low 4.20-5.[address] [facility] Comment on above: Performed By: #### 8 5499 #### [facility] [address] [place] [address], [facility] WBC #/vol (Bld) 8.36 10*3/uL Normal 4.00-10.[address] [facility] Comment on above: Performed By: #### 8 5499 #### [facility] [address] [place] [address], [facility] CT CHEST WO CONTRASTon 12-28 CT CHEST WO CONTRAST [facility] Department of Radiology [address] [place] [id number] ======== Patient Name: MELBA LEVY : 1955 Sex: M Age: Race: White Pt. Location: [address] [place] [address] Patient Status: I Ordered Date: 12/28/2017 11:00:00 AM Completed Date: 12/28/2017 03:26 PM Requesting Provider: ZEFERINO ALBERT Attending Provider: MELODY CHISHOLM Report Copy To: Signs & Symptoms: Other History: Patient history not available Comments: Other, empyema vs pneumonia Exam: CT CHEST WO CONTRAST ======== CT CHEST WO CONTRAST 12/28/2017 3:26 PM EDT SIGN AND SYMPTOMS: Other TECHNOLOGIST COMMENTS: empyema vs pneumonia QUESTIONS PER RADIOLOGIST: Other, empyema vs pneumonia PROTOCOL: Axial CT images of the chest were obtained without IV contrast. TECHNIQUE: Multidetector CT axial slices of the chest were obtained without IV contrast. Multiplanar reformats were performed and viewed on a separate workstation and reviewed to further define anatomy and possible pathology.Appropriate CT dose lowering techniques were utilized. COMPARISON: December 26 CT chest. FINDINGS: Lower neck: Thyroid gland within normal limits, no supraclavicle adenopathy. Vessels: There is mild aortic ectasia measuring 3.3 cm. There is early atherosclerotic change. There is significant coronary artery calcification consistent with coronary artery disease.. Mediastinum and Megan: No change in mild pretracheal adenopathy. The megan cannot be assessed due to noncontrasted examination. Heart: Normal size. No pericardial effusion. Airways: There is now cut off of the right lower lobe bronchus consistent with mucous plug since this was not present on the previous study 2 days ago. Lungs and pleura: Marked interval change. There is now diffuse cystic change predominantly upper lobe which and 48 hours is unlikely to be interstitial in origin although it appears interstitial. There is increased atelectasis, bilateral lower lobes. There are air bronchograms in the left base consistent with pneumonia. On the right there is fluid and air consistent with hydropneumothorax. The degree of pneumothorax is unchanged from prior study. Chest Wall: Unremarkable Upper Abdomen: Unremarkable Bones: No acute abnormality. Prior median sternotomy. IMPRESSION: No significant change right hydropneumothorax. Left basilar pneumonia. Probable inflammatory process involving the upper lobes bilaterally with marked interval change. Pattern appears interstitial. This could also represent acute interstitial pulmonary edema. No change in position of right chest tube. Right chest tube now is full of fluid. No air is noted in the chest tube. Complete obstruction right lower lobe bronchus. Bronchoscopy suggested. Probable mucous plug. Electronically signed by:Robert Moya. Transcribed by: [email or web address], User Resident: Electronically Signed by: ROBERT MOYA @ 12/29/2017 08:58 AM Normal [facility] Comment on above: Order Comment: No: D o not add to previous draw MAGNESIUM BLOODon 12-28-2017 Magnesium mass conc 2.3 mg/dL Normal 1.9-2.[address] [facility] Comment on above: Order Comment: No: D o not add to previous draw Performed By: #### 0 0071, 38415, 50616 #### [facility] [address] [place] [address], [facility] Magnesium mass conc 1.8 mg/dL Low 1.9-2.[address] [facility] Comment on above: Order Comment: No: D o not add to previous draw Performed By: #### 8 [id number] #### [facility] [address] [place] [address], [facility] PHOSPHORUS BLOODon 8 Phosphate mass conc 4.1 mg/dL Normal 2.5-5.[address] [facility] Comment on above: Order Comment: No: D o not add to previous draw Performed By: #### 0 0071, 07932, 19347 #### [facility] [address] [place] [address], [facility] Phosphate mass conc 4.1 mg/dL Normal 2.5-5.[address] [facility] Comment on above: Order Comment: No: D o not add to previous draw Performed By: #### 8 [id number] #### [facility] [address] [place] [address], [facility] PORTABLE CHEST 1 VIEWon 12-12 PORTABLE CHEST 1 VIEW [facility] Department of Radiology [address] [place] [id number] ======== Patient Name: MELBA LEVY : 1955 Sex: M Age: Race: White Pt. Location: [address] [place] [address] Patient Status: I Ordered Date: 12/28/2017 5:00:00 AM Completed Date: 12/28/2017 06:33 AM Requesting Provider: TREVA DEL ANGEL Attending Provider: MELODY CHISHOLM Report Copy To: Signs & Symptoms: O2 Desaturation History: Patient history not available Comments: R/O Atelectasis Exam: PORTABLE CHEST 1 VIEW ======== PORTABLE CHEST 1 VIEW 12/28/2017 6:33 AM EDT SIGNS AND SYMPTOMS: O2 Desaturation, shortness of breath, productive cough. QUESTION FOR THE RADIOLOGIST: R/O Atelectasis PROTOCOL: AP(PA) view was obtained. COMPARISON: December 27, 2017. FINDINGS: Right-sided chest tube appears grossly unchanged. Bibasilar pleural-parenchymal process, right greater than left, appears unchanged. The trachea is midline and the cardiomediastinal silhouette appears unchanged. No pneumothorax or subdiaphragmatic free air appreciated. IMPRESSION: Unchanged appearance of the chest. Persistent bibasilar pleural-parenchymal process. Approved by:Howie Mendoza on 12/28/2017 7:29 AM EDT. I, Breonna Mariano, have reviewed the images and report and concur with these findings. Electronically signed by:Breonna Mariano. Transcribed by: [email or web address], User Resident: ANNE MARIE MENDOZA Electronically Signed by: BREONNA MARIANO @ 12/28/2017 12:43 PM I personally read this/these film(s) with this resident Normal [facility] Comment on above: Order Comment: No: D o not add to previous draw PORTABLE CHEST 1 VIEW [facility] Department of Radiology [address] [place] [id number] ======== Patient Name: MELBA LEVY : 1955 Sex: M Age: Race: White Pt. Location: [address] [place] [address] Patient Status: I Ordered Date: 12/27/2017 11:40:00 PM Completed Date: 12/28/2017 12:04 AM Requesting Provider: TREVA DEL ANGEL Attending Provider: MELODY CHISHOLM Report Copy To: Signs & Symptoms: O2 Desaturation History: Patient history not available Comments: R/O Pneumothorax Exam: PORTABLE CHEST 1 VIEW ======== PORTABLE CHEST 1 VIEW 12/28/2017 12:04 AM EDT SIGNS AND SYMPTOMS: O2 Desaturation TECHNOLOGIST COMMENTS: productive cough, decreased oxygen sats QUESTION FOR THE RADIOLOGIST: R/O Pneumothorax PROTOCOL: AP(PA) view was obtained. COMPARISON: Chest x-ray December 27, 2017. FINDINGS: Portable AP upright view the chest. The cardiomediastinal silhouette is unchanged. The trachea is midline. Midline sternotomy wires intact. Right-sided chest tube is in unchanged position. Worsening alveolar airspace opacity at the left lung base and mid left upper lobe. Left-sided pleural effusion. Right-sided pleural effusion with air in the pleural space at the right costophrenic angle. Airspace opacity in the right lower lobe. Multiple right-sided rib fractures. IMPRESSION: 1. Bilateral pleural effusions with loculated air in the right pleural space located at the right costophrenic angle. Right-sided chest tube in place, similar to prior study. 2. Bibasilar airspace opacities with worsening opacity in the left upper lobe concerning for developing pneumonia. Approved by:Luisa Abel on 12/28/2017 12:42 AM EDT. I, Breonna Mariano, have reviewed the images and report and concur with these findings. Electronically signed by:Breonna Mariano. Transcribed by: [email or web address], User Resident: LUISA ABEL Electronically Signed by: BREONNA MARIANO @ 12/28/2017 11:34 AM I personally read this/these film(s) with this resident Normal [facility] Comment on above: Order Comment: No: D o not add to previous draw TROPONIN-Ion 12-28-2017 Troponin I.cardiac mass conc 0.01 ng/mL Normal 0.00-0.[address] [facility] Comment on above: Order Comment: No: D o not add to previous draw Result Comment: REFE RENCE RANGES: 0.00 - 0.04 ng/ml NORMAL 0.05 - 0.50 ng/ml INDETERMINATE > 0.50 ng/ml CONSISTENT WITH AN M.I. Performed By: #### 8 [id number] #### [facility] [address] [place] [address], [facility] BASIC METABOLIC PANELon 12-12 Calcium mass conc 8.2 mg/dL Low 8.6-10.[address] [facility] Comment on above: Order Comment: No: D o not add to previous draw Performed By: #### 8 [id number] #### [facility] [address] [place] [address], [facility] Chloride molar conc 108 mmol/L High 98-[address] [facility] Comment on above: Order Comment: No: D o not add to previous draw Performed By: #### 8 [id number] #### [facility] [address] [place] [address], [place] CO2 molar conc 23 mmol/L Normal 21-[address] [facility] Comment on above: Order Comment: No: D o not add to previous draw Performed By: #### 8 [id number] #### [facility] [address] [place] [address], [facility] Creatinine mass conc 0.59 mg/dL Low 0.70-1.[address] [facility] Comment on above: Order Comment: No: D o not add to previous draw Performed By: #### 8 [id number] #### [facility] [address] [place] [address], [place] GFR/1.73 sq M predicted among blacks MDRD vol rate/area (S/P/Bld) mL/min/{1.73_m2} Normal >[address] [facility] Comment on above: Order Comment: No: D o not add to previous draw Performed By: #### 8 [id number] #### [facility] [address] [place] [address], [place] GFR/1.73 sq M predicted among non-blacks MDRD vol rate/area (S/P/Bld) mL/min/{1.73_m2} Normal >[address] [facility] Comment on above: Order Comment: No: D o not add to previous draw Performed By: #### 8 [id number] #### [facility] [address] [place] [address], [facility] Glucose mass conc 98 mg/dL Normal 70-[address] [facility] Comment on above: Order Comment: No: D o not add to previous draw Performed By: #### 8 [id number] #### [facility] [address] [place] [address], [place] Potassium molar conc 3.9 mmol/L Normal 3.5-5.[address] [facility] Comment on above: Order Comment: No: D o not add to previous draw Performed By: #### 8 [id number] #### [facility] [address] [place] [address], [place] Sodium molar conc 133 mmol/L Low 136-[address] [facility] Comment on above: Order Comment: No: D o not add to previous draw Performed By: #### 8 [id number] #### [facility] [address] [place] [address], [place] Urea nitrogen mass conc 13 mg/dL Normal 7-[address] [facility] Comment on above: Order Comment: No: D o not add to previous draw Performed By: #### 8 [id number] #### [facility] [address] CBC COMPLETE BLOOD COUNTon 0 - Erythrocyte distribution width Ratio (RBC) 14.7 % Normal 11.5-15.[address] [facility] Comment on above: Order Comment: No: D o not add to previous draw Performed By: #### 0 0071, 35149 #### [facility] [address] Hematocrit Volume Fraction (Bld) 31.9 % Low 39.0-50.[address] [facility] Comment on above: Order Comment: No: D o not add to previous draw Performed By: #### 0 0071, 24150 #### [facility] [address] Hemoglobin mass conc (Bld) 10.6 g/dL Low 13.0-17.[address] [facility] Comment on above: Order Comment: No: D o not add to previous draw Performed By: #### 0 0071, 33292 #### [facility] [address] MCH Entitic mass (RBC) 31.0 pg Normal 27.0-33.[address] [facility] Comment on above: Order Comment: No: D o not add to previous draw Performed By: #### 0 0071, 23778 #### [facility] [address] MCHC mass conc (RBC) 33.2 g/dL Normal 32.0-35.[address] [facility] Comment on above: Order Comment: No: D o not add to previous draw Performed By: #### 0 0071, 09519 #### [facility] [address] [place] [address], [facility] MCV Entitic volume (RBC) 93.3 fL Normal 82.0-98.[address] [facility] Comment on above: Order Comment: No: D o not add to previous draw Performed By: #### 0 0071, 87152 #### [facility] [address] [place] [address], [facility] Nucleated RBC/100 WBC Ratio (Bld) 0 % Normal 0-[address] [facility] Comment on above: Order Comment: No: D o not add to previous draw Performed By: #### 0 0071, 65742 #### [facility] [address] [place] [address], [facility] PLAT CNT 145 10*3/uL Low 150-[address] [facility] Comment on above: Order Comment: No: D o not add to previous draw Performed By: #### 0 0071, 27537 #### [facility] [address] [place] [address], [facility] RBC #/vol (Bld) 3.42 10*6/uL Low 4.20-5.[address] [facility] Comment on above: Order Comment: No: D o not add to previous draw Performed By: #### 0 0071, 04578 #### [facility] [address] [place] [address], [facility] WBC #/vol (Bld) 7.98 10*3/uL Normal 4.00-10.[address] [facility] Comment on above: Order Comment: No: D o not add to previous draw Performed By: #### 0 0071, 27695 #### [facility] [address] [facility]. [address] MAGNESIUM BLOODon 12-27-2017 Magnesium mass conc 1.6 mg/dL Low 1.9-2.[address] [facility] Comment on above: Order Comment: No: D o not add to previous draw Performed By: #### 0 0071, 79352 #### [facility] [address] [place] [address], [facility] PHOSPHORUS BLOODon 8 Phosphate mass conc 4.1 mg/dL Normal 2.5-5.[address] [facility] Comment on above: Order Comment: No: D o not add to previous draw Performed By: #### 0 0071, 35970 #### [address] PORTABLE CHEST 1 VIEWon 12-12 PORTABLE CHEST 1 VIEW [facility] Department of Radiology [address] [place] [id number] ======== Patient Name: MELBA LEVY : 1955 Sex: M Age: Race: White Pt. Location: [address] [place] [address] Patient Status: I Ordered Date: 12/27/2017 5:00:00 AM Completed Date: 12/27/2017 06:47 AM Requesting Provider: ERICK UGARTE Attending Provider: MELODY CHISHOLM Report Copy To: Signs & Symptoms: O2 Desaturation History: Patient history not available Comments: R/O Effusion Exam: PORTABLE CHEST 1 VIEW ======== PORTABLE CHEST 1 VIEW 12/27/2017 6:47 AM EDT SIGNS AND SYMPTOMS: O2 Desaturation, shortness of breath. QUESTION FOR THE RADIOLOGIST: R/O Effusion PROTOCOL: AP(PA) view was obtained. COMPARISON: December 26, 2017. FINDINGS: Right-sided chest tube appears unchanged. No residual pneumothorax is appreciable. Right-sided rib fractures redemonstrated. Persistent bibasilar airspace disease and likely small pleural effusions appear unchanged. Prominent interstitial lung markings at the lung bases also appear unchanged. IMPRESSION: 1. No significant interval change. No appreciable pneumothorax. 2. Persistent bibasilar atelectasis and small pleural effusions. Approved by:Howie Mendoza on 12/27/2017 7:07 AM EDT. I, Breonna Mariano, have reviewed the images and report and concur with these findings. Electronically signed by:Breonna Mariano. Transcribed by: [email or web address], User Resident: ANNE MARIE MENDOZA Electronically Signed by: BREONNA MARIANO @ 12/28/2017 12:43 PM I personally read this/these film(s) with this resident Normal [facility] Comment on above: Order Comment: No: D o not add to previous draw PORTABLE CHEST 1 VIEW [facility] Department of Radiology [address] [place] [id number] ======== Patient Name: MELBA LEVY : 1955 Sex: M Age: Race: White Pt. Location: [address] [place] [address] Patient Status: I Ordered Date: 12/26/2017 11:50:00 PM Completed Date: 12/27/2017 12:16 AM Requesting Provider: DERREK COSBY Attending Provider: MELODY CHISHOLM Report Copy To: Signs & Symptoms: Acute Respiratory Distress History: Patient history not available Comments: R/O Atelectasis Exam: PORTABLE CHEST 1 VIEW ======== PORTABLE CHEST 1 VIEW 12/27/2017 12:16 AM EDT SIGNS AND SYMPTOMS: Acute Respiratory Distress TECHNOLOGIST COMMENTS: shortness of breath QUESTION FOR THE RADIOLOGIST: R/O Atelectasis PROTOCOL: AP(PA) view was obtained. COMPARISON: Chest x-ray December 26, 2017. FINDINGS: Portable AP upright view the chest. The cardiomediastinal silhouette is unchanged. The trachea is midline. Midline sternotomy wires intact. There is a right sided chest tube in unchanged position. Bibasilar airspace opacities. Small right-sided pleural effusion. Redemonstration of right-sided rib fractures. IMPRESSION: 1. Bibasilar airspace opacities with small right-sided pleural effusion. 2. Right-sided chest tube in unchanged position. 3. Redemonstration of right-sided rib fractures. Approved by:Luisa Abel on 12/27/2017 12:25 AM EDT. I, Breonna Mariano, have reviewed the images and report and concur with these findings. Electronically signed by:Breonna Mariano. Transcribed by: [email or web address], User Resident: LUISA ABEL Electronically Signed by: BREONNA MARIANO @ 12/28/2017 11:34 AM I personally read this/these film(s) with this resident Normal [facility] Comment on above: Order Comment: No: D o not add to previous draw VANCOMYCIN TROUGHon 12-28-19 18 VANCOMYCIN TROU 13.6 mcg/mL Normal 5.0-20.[address] [facility] Comment on above: Performed By: #### 8 [id number] #### [facility] [address] *BLOOD CULTUREon 12-26-2017 Bacteria identified Cx Nom (Bld) Clinical Report: (D) Specimen: BLOOD CULTURE Collected: 12/26/2017 08:13 Status: Final Last Updated: 12/31/2017 11:03 CULT RES (Final) No Growth Day [address] Normal [address] [facility] Comment on above: Performed By: #### 0 0071, [id number] #### [facility] [address] Bacteria identified Cx Nom (Bld) Clinical Report: (D) Specimen: BLOOD CULTURE Collected: 12/26/2017 08:13 Status: Final Last Updated: 12/28/2017 06:29 GRAM (Final) Aerobic Bottle Yields Gram Positive Cocci In Clusters Results called. Read back by Nirmala Bassett RN at 1838 on 12/27/2017 ISO (Final) Staphylococcus aureus For Susceptibility Results Please Refer to Normal [facility] Comment on above: Performed By: #### 0 0071, 51637 #### [facility] [address] [place] [address], [place] BASIC METABOLIC PANELon 06-1 Calcium mass conc 8.1 mg/dL Low 8.6-10.[address] [facility] Comment on above: Order Comment: Yes: Add to Previous draw if able Performed By: #### 0 0071, 44602 #### [facility] [address] [place] [address], [place] Chloride molar conc 103 mmol/L Normal 98-[address] [facility] Comment on above: Order Comment: Yes: Add to Previous draw if able Performed By: #### 0 0071, 33730 #### [facility] [address] [place] [address], [place] CO2 molar conc 22 mmol/L Normal 21-[address] [facility] Comment on above: Order Comment: Yes: Add to Previous draw if able Performed By: #### 0 0071, 77819 #### [facility] [address] [place] [address], [place] Creatinine mass conc 0.53 mg/dL Low 0.70-1.[address] [facility] Comment on above: Order Comment: Yes: Add to Previous draw if able Performed By: #### 0 0071, 95593 #### [facility] [address] [place] [address], [place] GFR/1.73 sq M predicted among blacks MDRD vol rate/area (S/P/Bld) mL/min/{1.73_m2} Normal >[address] [facility] Comment on above: Order Comment: Yes: Add to Previous draw if able Performed By: #### 0 0071, 95631 #### [facility] [address] [place] [address], [place] GFR/1.73 sq M predicted among non-blacks MDRD vol rate/area (S/P/Bld) mL/min/{1.73_m2} Normal >[address] [facility] Comment on above: Order Comment: Yes: Add to Previous draw if able Performed By: #### 0 0071, 09313 #### [facility] [address] [place] [address], [facility] Glucose mass conc 97 mg/dL Normal 70-[address] [facility] Comment on above: Order Comment: Yes: Add to Previous draw if able Performed By: #### 0 0071, 57171 #### [facility] [address] [place] [address], [facility] Potassium molar conc 3.6 mmol/L Normal 3.5-5.[address] [facility] Comment on above: Order Comment: Yes: Add to Previous draw if able Performed By: #### 0 0071, 06231 #### [facility] [address] [place] [id number], [facility] Sodium molar conc 127 mmol/L Low 136-[address] [facility] Comment on above: Order Comment: Yes: Add to Previous draw if able Performed By: #### 0 0071, 46447 #### [facility] [address] [place] [address], [facility] Urea nitrogen mass conc 16 mg/dL Normal 7-[address] [facility] Comment on above: Order Comment: Yes: Add to Previous draw if able Performed By: #### 0 0071, 58718 #### [facility] [address] [place] [address], [facility] CBC W/DIFFon 12-26-2017 ABS BASOPHILS 0.0 10*3/uL Normal 0.0-0.[address] [facility] Comment on above: Order Comment: Yes: Add to Previous draw if able Performed By: #### 0 0071, 24411 #### [facility] [address] [place] [address], [facility] ABS IMM GRANS 0.1 10*3/uL Normal 0.0-0.[address] [facility] Comment on above: Order Comment: Yes: Add to Previous draw if able Performed By: #### 0 0071, 28561 #### [facility] [address] [place] [address], [facility] ABS NEUTROPHILS 7.0 10*3/uL Normal 1.6-7.[address] [facility] Comment on above: Order Comment: Yes: Add to Previous draw if able Performed By: #### 0 0071, 97367 #### [facility] [address] [place] [address], [facility] Basophils #/vol (Bld) 0.4 % Normal 0.0-1.[address] [facility] Comment on above: Order Comment: Yes: Add to Previous draw if able Performed By: #### 0 0071, 49451 #### [facility] [address] [place] [address], [facility] Eosinophils #/vol (Bld) 0.2 10*3/uL Normal 0.0-0.[address] [facility] Comment on above: Order Comment: Yes: Add to Previous draw if able Performed By: #### 0 0071, 27089 #### [facility] [address] [place] [address], [facility] Eosinophils/100 WBC (Bld) 1.9 % Normal 0.0-6.[address] [facility] Comment on above: Order Comment: Yes: Add to Previous draw if able Performed By: #### 0 0071, 91740 #### [facility] [address] [place] [address], [facility] Erythrocyte distribution width Ratio (RBC) 14.4 % Normal 11.5-15.[address] [facility] Comment on above: Order Comment: Yes: Add to Previous draw if able Performed By: #### 0 0071, 33858 #### [facility] [address] [place] [address], [facility] Hematocrit Volume Fraction (Bld) 31.0 % Low 39.0-50.[address] [facility] Comment on above: Order Comment: Yes: Add to Previous draw if able Performed By: #### 0 0071, 77327 #### [facility] [address] [facility] [place] [address], [facility] Hemoglobin mass conc (Bld) 10.7 g/dL Low 13.0-17.[address] [facility] Comment on above: Order Comment: Yes: Add to Previous draw if able Performed By: #### 0 0071, 96195 #### [facility] [address] [facility] [place] [address], [facility] IMMATURE GRANS 1.1 % High 0.0-1.[address] [facility] Comment on above: Order Comment: Yes: Add to Previous draw if able Performed By: #### 0 0071, 09595 #### [facility] [address] [place] [address], [facility] Lymphocytes #/vol (Bld) 0.4 10*3/uL Low 1.2-4.[address] [facility] Comment on above: Order Comment: Yes: Add to Previous draw if able Performed By: #### 0 0071, 21144 #### [facility] [address] [facility] [place] [address], [facility] Lymphocytes/100 WBC (Bld) 5.2 % Low 20.0-45.[address] [facility] Comment on above: Order Comment: Yes: Add to Previous draw if able Performed By: #### 0 0071, 48016 #### [facility] [address] [place] [address], [facility] MCH Entitic mass (RBC) 31.4 pg Normal 27.0-33.[address] [facility] Comment on above: Order Comment: Yes: Add to Previous draw if able Performed By: #### 0 0071, 83199 #### [facility] [address] [place] [address], [facility] MCHC mass conc (RBC) 34.5 g/dL Normal 32.0-35.[address] [facility] Comment on above: Order Comment: Yes: Add to Previous draw if able Performed By: #### 0 0071, 47063 #### [facility] [address] [facility]. [address] MCV Entitic volume (RBC) 90.9 fL Normal 82.0-98.[address] [facility] Comment on above: Order Comment: Yes: Add to Previous draw if able Performed By: #### 0 0071, 07237 #### [facility] [address] [place] [address], [facility] Monocytes #/vol (Bld) 0.6 10*3/uL Normal 0.1-1.[address] [facility] Comment on above: Order Comment: Yes: Add to Previous draw if able Performed By: #### 0 0071, 02643 #### [facility] [address] [facility]. [address] MONOS 7.2 % Normal 5.0-12.[address] [facility] Comment on above: Order Comment: Yes: Add to Previous draw if able Performed By: #### 0 0071, 54507 #### [facility] [address] [place] [address], [facility] Neutrophils/100 WBC (Bld) 84.2 % High 40.0-72.[address] [facility] Comment on above: Order Comment: Yes: Add to Previous draw if able Performed By: #### 0 0071, 36483 #### [facility] [address] [place] [address], [facility] Nucleated RBC/100 WBC Ratio (Bld) 0 % Normal 0-[address] [facility] Comment on above: Order Comment: Yes: Add to Previous draw if able Performed By: #### 0 0071, 17782 #### [facility] [address] [place] [address], [facility] PLAT CNT 144 10*3/uL Low 150-[address] [facility] Comment on above: Order Comment: Yes: Add to Previous draw if able Performed By: #### 0 0071, 74440 #### [facility] [address] [place] [address], [facility] RBC #/vol (Bld) 3.41 10*6/uL Low 4.20-5.[address] [facility] Comment on above: Order Comment: Yes: Add to Previous draw if able Performed By: #### 0 0071, 36665 #### [facility] [address] [place] [address], [facility] WBC #/vol (Bld) 8.28 10*3/uL Normal 4.00-10.[address] [facility] Comment on above: Order Comment: Yes: Add to Previous draw if able Performed By: #### 0 0071, 38656 #### [address] CHEST W CONTRASTon 2017 CT CHEST W CONTRAST [facility] Department of Radiology [address] [place] [id number] ======== Patient Name: MELBA LEVY : 1955 Sex: M Age: Race: White Pt. Location: [address] [place] [address] Patient Status: I Ordered Date: 12/26/2017 6:40:00 AM Completed Date: 12/26/2017 11:08 AM Requesting Provider: TREVA DEL ANGEL Attending Provider: MELODY CHISHOLM Report Copy To: Signs & Symptoms: Infiltrates History: Patient history not available Comments: R/O Abscess Exam: CT CHEST W CONTRAST ======== CT CHEST W CONTRAST 12/26/2017 11:08 AM EDT SIGN AND SYMPTOMS: Infiltrates TECHNOLOGIST COMMENTS: infiltrates ? abscess QUESTIONS PER RADIOLOGIST: R/O Abscess PROTOCOL: Axial CT images of the chest were obtained with IV contrast. CONTRAST: Contrast: OMNIPAQUE 350 (LOCM), 100 milliliter, Intravenous TECHNIQUE: Multidetector CT axial slices of the chest were obtained with IV contrast. Multiplanar reformats were performed and viewed on a separate workstation and reviewed to further define anatomy and possible pathology. Appropriate CT dose lowering techniques were utilized. COMPARISON: Chest x-ray December 26, 2017.. FINDINGS: Lower neck: Thyroid gland within normal limits, no supraclavicle adenopathy. Aorta: Incidentally noted is a prepulmonary course of the left circumflex coronary artery. Mild atherosclerotic calcification in the aortic arch. Coronary artery calcification. Pulmonary arteries: No large central pulmonary embolus. Mediastinum and Megan: Prominent paratracheal, subcarinal, and perihilar lymph nodes. Heart: Normal size. No pericardial effusion. Airways: The trachea is within normal limits. There is dependent mucus with plugging in the bronchi to the bilateral lower lobes. Lungs: Centrilobular emphysematous changes. Interstitial lobular thickening. Bilateral lower lobe airspace consolidations with atelectasis. Airspace consolidation in the lingula. Pleura: Right sided hydropneumothorax with right-sided large-bore chest tube posteriorly. Small left-sided pleural effusion. Chest Wall: Subcutaneous emphysema at the right chest wall and into the right neck likely secondary to recent chest tube placement. Upper Abdomen: Visualized portion of the abdomen appears unremarkable. Bones: Displaced fractures of right-sided ribs 5 through 9. Healing fracture of right-sided 12th rib posteriorly. IMPRESSION: 1. Right-sided hydropneumothorax with right-sided chest tube in place posteriorly. 2. Bilateral lower lobe airspace consolidations with areas of atelectasis. There is also airspace consolidation in the lingula. 3. Mediastinum and perihilar adenopathy, likely reactive given the pulmonary findings. 4. There is mucous plugging in the bronchi to the bilateral lower lobes. 5. Small left-sided pleural effusion. 6. Acute displaced fractures of right-sided ribs 5-9 posteriorly. 7. Centrilobular emphysematous changes. Approved by:Luisa Abel on 12/27/2017 1:44 AM EDT. I, Breonna Mariano, have reviewed the images and report and concur with these findings. Electronically signed by:Breonna Mariano. Transcribed by: [email or web address], User Resident: ULISA ABEL Electronically Signed by: BREONNA MARIANO @ 12/28/2017 12:43 PM I personally read this/these film(s) with this resident Normal [facility] Comment on above: Order Comment: No: D o not add to previous draw LACTATE BLOODon 12-26-2017 Lactate molar conc 0.5 mmol/L Normal .5-2.[address] [facility] Comment on above: Order Comment: No: D o not add to previous draw Performed By: #### 0 0071, [id number] #### [facility] [address] [place] [address], [facility] Lactate molar conc 0.5 mmol/L Normal .5-2.[address] [facility] Comment on above: Order Comment: Yes: Add to Previous draw if able Performed By: #### 0 0071, [id number] #### [facility] [address] [place] [address], [facility] MAGNESIUM BLOODon 12-26-2017 Magnesium mass conc 1.9 mg/dL Normal 1.9-2.[address] [facility] Comment on above: Order Comment: Yes: Add to Previous draw if able Performed By: #### 0 0071, [id number] #### [facility] [address] [place] [address], [facility] PHOSPHORUS BLOODon 8 Phosphate mass conc 2.9 mg/dL Normal 2.5-5.[address] [facility] Comment on above: Order Comment: Yes: Add to Previous draw if able Performed By: #### 0 0071, [id number] #### [facility] [address], [facility] PORTABLE CHEST 1 VIEWon 12-12 PORTABLE CHEST 1 VIEW [facility] Department of Radiology [address] [place] [id number] ======== Patient Name: MELBA LEVY : 1955 Sex: M Age: Race: White Pt. Location: [id number] Patient Status: I Ordered Date: 12/26/2017 5:00:00 AM Completed Date: 12/26/2017 06:24 AM Requesting Provider: ERICK UGARTE Attending Provider: MELODY CHISHOLM Report Copy To: Signs & Symptoms: O2 Desaturation History: Patient history not available Comments: R/O Pneumonia, vs pleural effusion Exam: PORTABLE CHEST 1 VIEW ======== PORTABLE CHEST 1 VIEW 12/26/2017 6:27 AM EDT SIGNS AND SYMPTOMS: O2 Desaturation TECHNOLOGIST COMMENTS: right side chest pain, shortness of breath, chest tube QUESTION FOR THE RADIOLOGIST: R/O Pneumonia, vs pleural effusion PROTOCOL: AP(PA) view was obtained. COMPARISON: Prior study from the day before. FINDINGS: Frontal view of the chest revealed mild cardiomegaly with mediastinal clips and sternotomy wires seen likely from prior CABG procedure. There is bibasal consolidation likely atelectasis with bilateral small pleural effusions and suggestion of interval worsening of the pleural-parenchymal process on the right side since prior study. Right chest tube is unchanged with displaced right posterior rib fractures again visualized and small amount of subcutaneous emphysema along the supraclavicular region on the right. IMPRESSION: Worsening right pleural effusion and bibasal consolidation since prior study. Small left pleural effusion and left basal atelectasis, unchanged. Displaced right posterior 5 and 6 rib fractures Electronically signed by:Jennifer Mullen. Transcribed by: [email or web address], User Resident: Electronically Signed by: CARLOSLILIBETH PAZ @ 12/26/2017 05:44 PM Normal [facility] Comment on above: Order Comment: R/O P neumonia, vs pleural effusion *BLOOD CULTUREon 12-25-2017 Bacteria identified Cx Nom (Bld) Clinical Report: (D) Specimen: BLOOD CULTURE Collected: 12/25/2017 15:11 Status: Final Last Updated: 12/28/2017 06:26 GRAM (Final) Anaerobic Bottle Yields Gram Positive Cocci In Clusters Results called. Read back by Shad Lopez RN oon 12/26/17 at 0855 ISO (Final) Staphylococcus aureus Results called. Read back by (ID) 9:11 a.m. 12/27/17 Inducible resistance to Clindamycin is present. Organism should be considered resistant to Clindamycin despite ABRIL. ISOLATE: Staphylococcus aureus -- ABRIL (mcg/ml) CLINDAMYCIN (CC) <=0.5 Resistant DAPTOMYCIN (DAP) <=1 Susceptible ERYTHROMYCIN (E) >4 Resistant OXACILLIN (OX) 0.5 Susceptible PENICILLIN (P) >1 Resistant TETRACYCLINE (TE) <=0.5 Susceptible TRIMETH/SULFA (SXT) <=0.5/9.5 Susceptible VANCOMYCIN (VA) 1 Susceptible Normal [facility] Comment on above: Performed By: #### 0 0071, [id number] #### [address] [place] [address], [facility] Bacteria identified Cx Nom (Bld) Clinical Report: (D) Specimen: BLOOD CULTURE Collected: 12/25/2017 15:11 Status: Final Last Updated: 12/28/2017 06:26 GRAM (Final) Aerobic Bottle Yields Gram Positive Cocci In Clusters RESULTS CHECKED AND CALLED. ACCURATELY READ BACK BY Shad Lopez RN at 10:57 on 12/26/17. ISO (Final) Staphylococcus aureus Results called. Read back by (ID) 9:11 a.m. 12/27/17 For Susceptibility Results Please Refer to Result changed by GENO on 12/28/2017 06:26. The previous result was: ISO (Prelim) Staphylococcus aureus Results called. Read back by (ID) 9:11 a.m. 12/27/17 Normal [facility] Comment on above: Performed By: #### 0 0071, [id number] #### [facility] [address] *SPUTUM CULTUREon 12-25-2017 Bacteria identified Respiratory culture Nom (Sput) Clinical Report: (D) Specimen/Source: SPUTUM/SPUTUM, SPONTANEOUS Collected: 12/25/2017 18:00 Status: Final Last Updated: 12/26/2017 12:23 (1) No: Do not add to previous draw GRAM (Final) < 10 Squamous Epithelial Cells, >25 Polys Per Low Power Field Many Gram Positive Cocci In Pairs, Chains and Clusters Few Gram Negative Bacilli Rare Gram Positive Bacilli ISO (Final) Moderate Growth Colonies Consistent with Upper Respiratory Amanda Normal [facility] Comment on above: Order Comment: Yes: Add to Previous draw if able Performed By: #### 0 0071, [id number] #### [facility] [address] [place] [address], [facility] BASIC METABOLIC PANELon 12-12 Calcium mass conc 8.4 mg/dL Low 8.6-10.[address] [facility] Comment on above: Order Comment: Yes: Add to Previous draw if able Performed By: #### 5 [id number] #### [facility] [address] [place] [address], [facility] Chloride molar conc 104 mmol/L Normal 98-[address] [facility] Comment on above: Order Comment: Yes: Add to Previous draw if able Performed By: #### 5 [id number] #### [facility] [address] [facility] [place] [address], [place] CO2 molar conc 25 mmol/L Normal 21-[address] [facility] Comment on above: Order Comment: Yes: Add to Previous draw if able Performed By: #### 5 [id number] #### [facility] [address] [place] [id number], [facility] Creatinine mass conc 0.67 mg/dL Low 0.70-1.[address] [facility] Comment on above: Order Comment: Yes: Add to Previous draw if able Performed By: #### 5 0608 #### [facility] [address] [place] [address], [facility] GFR/1.73 sq M predicted among blacks MDRD vol rate/area (S/P/Bld) mL/min/{1.73_m2} Normal >[address] [facility] Comment on above: Order Comment: Yes: Add to Previous draw if able Performed By: #### 5 0608 #### [facility] [address] [place] [address], [facility] GFR/1.73 sq M predicted among non-blacks MDRD vol rate/area (S/P/Bld) mL/min/{1.73_m2} Normal >[address] [facility] Comment on above: Order Comment: Yes: Add to Previous draw if able Performed By: #### 5 [id number] #### [facility] [address] [place] [address], [facility] Glucose mass conc 97 mg/dL Normal 70-[address] [facility] Comment on above: Order Comment: Yes: Add to Previous draw if able Performed By: #### 5 0608 #### [facility] [address] [place] [address], [facility] Potassium molar conc 4.1 mmol/L Normal 3.5-5.[address] [facility] Comment on above: Order Comment: Yes: Add to Previous draw if able Performed By: #### 5 0608 #### [facility] [address] [place] [address], [place] Sodium molar conc 133 mmol/L Low 136-[address] [facility] Comment on above: Order Comment: Yes: Add to Previous draw if able Performed By: #### 5 0608 #### [facility] [address] [facility] [place] [address], [facility] Urea nitrogen mass conc 20 mg/dL Normal 7-[address] [facility] Comment on above: Order Comment: Yes: Add to Previous draw if able Performed By: #### 5 0608 #### [facility] [address] CBC COMPLETE BLOOD COUNTon 0 - Erythrocyte distribution width Ratio (RBC) 14.2 % Normal 11.5-15.[address] [facility] Comment on above: Order Comment: Yes: Add to Previous draw if able Performed By: #### 5 [id number] #### [facility] [address] [facility] Hematocrit Volume Fraction (Bld) 32.7 % Low 39.0-50.[address] [facility] Comment on above: Order Comment: Yes: Add to Previous draw if able Performed By: #### 5 0608 #### [facility] [address] [facility] Hemoglobin mass conc (Bld) 11.1 g/dL Low 13.0-17.[address] [facility] Comment on above: Order Comment: Yes: Add to Previous draw if able Performed By: #### 5 0608 #### [facility] [address] [place] [address], [facility] MCH Entitic mass (RBC) 31.2 pg Normal 27.0-33.[address] [facility] Comment on above: Order Comment: Yes: Add to Previous draw if able Performed By: #### 5 0608 #### [facility] [address] [place] [address], [facility] MCHC mass conc (RBC) 33.9 g/dL Normal 32.0-35.[address] [facility] Comment on above: Order Comment: Yes: Add to Previous draw if able Performed By: #### 5 0608 #### [facility] [address] MCV Entitic volume (RBC) 91.9 fL Normal 82.0-98.[address] [facility] Comment on above: Order Comment: Yes: Add to Previous draw if able Performed By: #### 5 0608 #### [facility] [address] Nucleated RBC/100 WBC Ratio (Bld) 0 % Normal 0-[address] [facility] Comment on above: Order Comment: Yes: Add to Previous draw if able Performed By: #### 5 0608 #### [facility] [address] [facility] [address] PLAT CNT 154 10*3/uL Normal 150-[address] [facility] Comment on above: Order Comment: Yes: Add to Previous draw if able Performed By: #### 5 0608 #### [facility] [address] [facility] RBC #/vol (Bld) 3.56 10*6/uL Low 4.20-5.[address] [facility] Comment on above: Order Comment: Yes: Add to Previous draw if able Performed By: #### 5 0608 #### [facility] [address] [facility] WBC #/vol (Bld) 8.40 10*3/uL Normal 4.00-10.[address] [facility] Comment on above: Order Comment: Yes: Add to Previous draw if able Performed By: #### 5 0608 #### [facility] [address] [place] [address], [facility] CBC W/DIFFon 12-25-2017 ABS BASOPHILS 0.0 10*3/uL Normal 0.0-0.[address] [facility] Comment on above: Order Comment: Yes: Add to Previous draw if able Performed By: #### 5 0608 #### [facility] [address] [facility] [address] ABS IMM GRANS 0.1 10*3/uL Normal 0.0-0.[address] [facility] Comment on above: Order Comment: Yes: Add to Previous draw if able Performed By: #### 5 0608 #### [facility] [address] [facility] ABS NEUTROPHILS 8.5 10*3/uL High 1.6-7.[address] [facility] Comment on above: Order Comment: Yes: Add to Previous draw if able Performed By: #### 5 0608 #### [facility] [address] [facility] Basophils #/vol (Bld) 0.4 % Normal 0.0-1.[address] [facility] Comment on above: Order Comment: Yes: Add to Previous draw if able Performed By: #### 5 0608 #### [facility] [address] [facility] Eosinophils #/vol (Bld) 0.1 10*3/uL Normal 0.0-0.[address] [facility] Comment on above: Order Comment: Yes: Add to Previous draw if able Performed By: #### 5 0608 #### [facility] [address] Eosinophils/100 WBC (Bld) 1.1 % Normal 0.0-6.[address] [facility] Comment on above: Order Comment: Yes: Add to Previous draw if able Performed By: #### 5 0608 #### [facility] [address] Erythrocyte distribution width Ratio (RBC) 14.2 % Normal 11.5-15.[address] [facility] Comment on above: Order Comment: Yes: Add to Previous draw if able Performed By: #### 5 0608 #### [facility] 3000 [facility] [place] [address], [place] Hematocrit Volume Fraction (Bld) 33.2 % Low 39.0-50.[address] [facility] Comment on above: Order Comment: Yes: Add to Previous draw if able Performed By: #### 5 0608 #### [facility] [address] Hemoglobin mass conc (Bld) 11.3 g/dL Low 13.0-17.[address] [facility] Comment on above: Order Comment: Yes: Add to Previous draw if able Performed By: #### 5 0608 #### [facility] [address] [facility] IMMATURE GRANS 1.3 % High 0.0-1.[address] [facility] Comment on above: Order Comment: Yes: Add to Previous draw if able Performed By: #### 5 0608 #### [facility] [address] [facility] [address] Lymphocytes #/vol (Bld) 0.4 10*3/uL Low 1.2-4.[address] [facility] Comment on above: Order Comment: Yes: Add to Previous draw if able Performed By: #### 5 0608 #### [facility] [address] [facility] [address] Lymphocytes/100 WBC (Bld) 4.0 % Low 20.0-45.[address] [facility] Comment on above: Order Comment: Yes: Add to Previous draw if able Performed By: #### 5 0608 #### [facility] [address] [facility] [place] [address], [facility] MCH Entitic mass (RBC) 31.2 pg Normal 27.0-33.[address] [facility] Comment on above: Order Comment: Yes: Add to Previous draw if able Performed By: #### 5 0608 #### [facility] [address] MCHC mass conc (RBC) 34.0 g/dL Normal 32.0-35.[address] [facility] Comment on above: Order Comment: Yes: Add to Previous draw if able Performed By: #### 5 0608 #### [facility] [address] [facility] MCV Entitic volume (RBC) 91.7 fL Normal 82.0-98.[address] [facility] Comment on above: Order Comment: Yes: Add to Previous draw if able Performed By: #### 5 0608 #### [facility] [address] Monocytes #/vol (Bld) 0.7 10*3/uL Normal 0.1-1.[address] [facility] Comment on above: Order Comment: Yes: Add to Previous draw if able Performed By: #### 5 0608 #### [facility] [address] [facility] MONOS 6.7 % Normal 5.0-12.[address] [facility] Comment on above: Order Comment: Yes: Add to Previous draw if able Performed By: #### 5 0608 #### [facility] [address] [facility] Neutrophils/100 WBC (Bld) 86.5 % High 40.0-72.[address] [facility] Comment on above: Order Comment: Yes: Add to Previous draw if able Performed By: #### 5 0608 #### [facility] [address] [facility] Nucleated RBC/100 WBC Ratio (Bld) 0 % Normal 0-[address] [facility] Comment on above: Order Comment: Yes: Add to Previous draw if able Performed By: #### 5 0608 #### [facility] [address] [place] [address], [facility] PLAT CNT 164 10*3/uL Normal 150-[address] [facility] Comment on above: Order Comment: Yes: Add to Previous draw if able Performed By: #### 5 0608 #### [facility] [address] [place] [address], [facility] RBC #/vol (Bld) 3.62 10*6/uL Low 4.20-5.[address] [facility] Comment on above: Order Comment: Yes: Add to Previous draw if able Performed By: #### 5 0608 #### [facility] [address] [place] [address], [facility] WBC #/vol (Bld) 9.87 10*3/uL Normal 4.00-10.[address] [facility] Comment on above: Order Comment: Yes: Add to Previous draw if able Performed By: #### 5 0608 #### [facility] [address] [place] [address], [facility] LACTATE BLOODon 12-25-2017 Lactate molar conc 1.1 mmol/L Normal .5-2.[address] [facility] Comment on above: Order Comment: Yes: Add to Previous draw if able Performed By: #### 0 0071, [id number] #### [facility] [address] [place] [address], [facility] Lactate molar conc 1.3 mmol/L Normal .5-2.[address] [facility] Comment on above: Order Comment: Yes: Add to Previous draw if able Performed By: #### 5 0608 #### [facility] [address] [place] [address], [facility] Lactate molar conc 1.1 mmol/L Normal .5-2.[address] [facility] Comment on above: Order Comment: Yes: Add to Previous draw if able Performed By: #### 5 0608 #### [facility] [address] [place] [address], [facility] MAGNESIUM BLOODon 12-25-2017 Magnesium mass conc 1.7 mg/dL Low 1.9-2.[address] [facility] Comment on above: Performed By: #### 0 0071, 62110 #### [facility] [address] [place] [address], [facility] Magnesium mass conc 1.3 mg/dL Low 1.9-2.[address] [facility] Comment on above: Order Comment: Yes: Add to Previous draw if able Performed By: #### 5 0608 #### [facility] [address] [place] [address], [facility] PHOSPHORUS BLOODon 8 Phosphate mass conc 2.9 mg/dL Normal 2.5-5.[address] [facility] Comment on above: Order Comment: Yes: Add to Previous draw if able Performed By: #### 0 0071, [id number] #### [facility] [address] [place] [address], [facility] Phosphate mass conc 2.4 mg/dL Low 2.5-5.[address] [facility] Comment on above: Order Comment: Yes: Add to Previous draw if able Performed By: #### 5 0608 #### [facility] [address] [place] [address], [facility] POC GLUCOSE LABon 12-25-2017 Glucose mass conc 99 mg/dL Normal 70-[address] [facility] Comment on above: Performed By: #### 5 0608 #### [facility] [address] [place] [address], [facility] PORTABLE CHEST 1 VIEWon 12-12 PORTABLE CHEST 1 VIEW [facility] Department of Radiology [address] [place] [id number] ======== Patient Name: MELBA LEVY : 1955 Sex: M Age: Race: White Pt. Location: [id number] Patient Status: I Ordered Date: 12/25/2017 6:35:00 AM Completed Date: 12/25/2017 12:34 PM Requesting Provider: TREVA DEL ANGEL Attending Provider: MELODY CHISHOLM Report Copy To: Signs & Symptoms: O2 Desaturation History: Patient history not available Comments: R/O Effusion Exam: PORTABLE CHEST 1 VIEW ======== PORTABLE CHEST 1 VIEW 12/25/2017 12:34 PM EDT SIGNS AND SYMPTOMS: O2 Desaturation TECHNOLOGIST COMMENTS: shortness of breath QUESTION FOR THE RADIOLOGIST: R/O Effusion PROTOCOL: AP(PA) view was obtained. COMPARISON: December 24, 2017 FINDINGS: Frontal view of the chest revealed mild cardiomegaly and prominent aortic knob with vascular calcification seen. Mediastinal clips and sternotomy wires are again visualized from CABG procedure. Right chest tube is unchanged with no residual pneumothorax appreciated. Small amount of resolving subcutaneous air along the right lateral upper chest and right supraclavicular region. There is consolidation in the right lower lobe possibly atelectasis but superimposed pneumonia is not excluded. There is blunting of the costo phrenic angle suggesting bilateral effusions: Right more than left. IMPRESSION: Bilateral pleural effusions and right basal consolidation demonstrating interval worsening since prior study. Right chest tube in place with no evidence of residual pneumothorax. Patient is status post CABG. Electronically signed by:Jennifer Mullen. Transcribed by: [email or web address], User Resident: Electronically Signed by: JENNIFER MULLEN @ 12/26/2017 05:26 PM Normal [facility] Comment on above: Order Comment: R/O E ffusion POTASSIUM BLOODon 12-25-2017 Potassium molar conc 4.4 mmol/L Normal 3.5-5.[address] [facility] Comment on above: Order Comment: Yes: Add to Previous draw if able Performed By: #### 0 0071, [id number] #### [facility] [address] TOX PANEL URINEon 12-25-2017 50 THC Negative Normal NEGATIVE [facility] Comment on above: Order Comment: Yes: Add to Previous draw if able Performed By: #### 5 0608 #### [facility] [address] [place] [address], [facility] BARBITURATES Negative Normal NEGATIVE [facility] Comment on above: Order Comment: Yes: Add to Previous draw if able Performed By: #### 5 0608 #### [facility] [address] [place] [address], [facility] Benzodiazepines Ql (U) Negative Normal NEGATIVE Th e [facility] Comment on above: Order Comment: Yes: Add to Previous draw if able Performed By: #### 5 0608 #### [facility] [address] [facility] [place] [address], [facility] Cocaine Ql (U) Negative Normal NEGATIVE [facility] Comment on above: Order Comment: Yes: Add to Previous draw if able Performed By: #### 5 0608 #### [facility] [address] [place] [address], [facility] Methadone Ql (U) Negative Normal NEGATIVE [facility] Comment on above: Order Comment: Yes: Add to Previous draw if able Performed By: #### 5 0608 #### [facility] [address] [place] [address], [facility] MONO AMPHET Negative Normal NEGATIVE [facility] Comment on above: Order Comment: Yes: Add to Previous draw if able Performed By: #### 5 0608 #### [facility] [address] [place] [address], [facility] Opiates Ql (U) Positive Abnormal NEGATIVE [facility] Comment on above: Order Comment: Yes: Add to Previous draw if able Performed By: #### 5 0608 #### [facility] [address] [place] [address], [facility] Phencyclidine Ql (U) Negative Normal NEGATIVE [facility] Comment on above: Order Comment: Yes: Add to Previous draw if able Performed By: #### 5 0608 #### [facility] [address] [place] [address], [facility] Protein mass conc (U) Negative Normal NEGATIVE [facility] Comment on above: Order Comment: Yes: Add to Previous draw if able Performed By: #### 5 0608 #### [facility] [address] [place] [address], [facility] TRICYCLICS Negative Normal NEGATIVE [facility] Comment on above: Order Comment: Yes: Add to Previous draw if able Performed By: #### 5 0608 #### [facility] [address] [facility] [place] [address], [facility] TYPE AND SCREENon 12-25-2017 ABO INTERPRETATION O Normal [facility] Comment on above: Performed By: #### 5 0608 #### [facility] [address] [place] [address], [facility] RH INTERPRETATION Positive Normal [facility] Comment on above: Performed By: #### 5 0608 #### [facility] [address] [place] [address], [facility] BASIC METABOLIC PANELon 12-12 Calcium mass conc 8.7 mg/dL Normal 8.6-10.[address] [facility] Comment on above: Order Comment: No: D o not add to previous draw Performed By: #### 0 0071, [id number], [id number] #### [facility] [address] [place] [address], [facility] Chloride molar conc 98 mmol/L Normal 98-[address] [facility] Comment on above: Order Comment: No: D o not add to previous draw Performed By: #### 0 0071, 69738, [id number] #### [facility] [address] [place] [address], [facility] CO2 molar conc 27 mmol/L Normal 21-[address] [facility] Comment on above: Order Comment: No: D o not add to previous draw Performed By: #### 0 0071, 15771, [id number] #### [facility] [address] [place] [address], [facility] Creatinine mass conc 0.74 mg/dL Normal 0.70-1.[address] [facility] Comment on above: Order Comment: No: D o not add to previous draw Performed By: #### 0 0071, [id number], [id number] #### [facility] [address] [place] [address], [facility] GFR/1.73 sq M predicted among blacks MDRD vol rate/area (S/P/Bld) mL/min/{1.73_m2} Normal >[address] [facility] Comment on above: Order Comment: No: D o not add to previous draw Performed By: #### 0 0071, [id number], [id number] #### [facility] [address] [place] [address], [facility] GFR/1.73 sq M predicted among non-blacks MDRD vol rate/area (S/P/Bld) mL/min/{1.73_m2} Normal >[address] [facility] Comment on above: Order Comment: No: D o not add to previous draw Performed By: #### 0 0071, [id number], [id number] #### [facility] [address] [place] [address], [facility] Glucose mass conc 88 mg/dL Normal 70-[address] [facility] Comment on above: Order Comment: No: D o not add to previous draw Performed By: #### 0 0071, [id number], 91857 #### [facility] [address] [place] [address], [facility] Potassium molar conc 4.0 mmol/L Normal 3.5-5.[address] [facility] Comment on above: Order Comment: No: D o not add to previous draw Performed By: #### 0 0071, 90756, 17684 #### [facility] [address] [place] [address], [facility] Sodium molar conc 128 mmol/L Low 136-[address] [facility] Comment on above: Order Comment: No: D o not add to previous draw Performed By: #### 0 0071, 48356, 93931 #### [facility] [address] [place] [address], [facility] Urea nitrogen mass conc 17 mg/dL Normal 7-[address] [facility] Comment on above: Order Comment: No: D o not add to previous draw Performed By: #### 0 0071, 17871, 89705 #### [facility] [address] [place] [address], [facility] CBC COMPLETE BLOOD COUNTon 0 - Erythrocyte distribution width Ratio (RBC) 13.9 % Normal 11.5-15.0 [facility] Comment on above: Order Comment: No: D o not add to previous draw Performed By: #### 5 [id number] #### [facility] [address] [place] [address], [facility] Hematocrit Volume Fraction (Bld) 33.7 % Low 39.0-50.[address] [facility] Comment on above: Order Comment: No: D o not add to previous draw Performed By: #### 5 [id number] #### [facility] [address] [place] [address], [facility] Hemoglobin mass conc (Bld) 11.5 g/dL Low 13.0-17.[address] [facility] Comment on above: Order Comment: No: D o not add to previous draw Performed By: #### 5 [id number] #### [facility] [address] [place] [address], [facility] MCH Entitic mass (RBC) 30.7 pg Normal 27.0-33.[address] [facility] Comment on above: Order Comment: No: D o not add to previous draw Performed By: #### 5 [id number] #### [facility] [address] MCHC mass conc (RBC) 34.1 g/dL Normal 32.0-35.[address] [facility] Comment on above: Order Comment: No: D o not add to previous draw Performed By: #### 5 [id number] #### [facility] [address] [place] [address], [facility] MCV Entitic volume (RBC) 90.1 fL Normal 82.0-98.[address] [facility] Comment on above: Order Comment: No: D o not add to previous draw Performed By: #### 5 [id number] #### [facility] [address] Nucleated RBC/100 WBC Ratio (Bld) 0 % Normal 0-[address] [facility] Comment on above: Order Comment: No: D o not add to previous draw Performed By: #### 5 0608 #### [facility] [address] [place] [address], [facility] PLAT CNT 154 10*3/uL Normal 150-[address] [facility] Comment on above: Order Comment: No: D o not add to previous draw Performed By: #### 5 [id number] #### [facility] [address] [place] [address], [facility] RBC #/vol (Bld) 3.74 10*6/uL Low 4.20-5.[address] [facility] Comment on above: Order Comment: No: D o not add to previous draw Performed By: #### 5 [id number] #### [facility] [address] [place] [address], [facility] WBC #/vol (Bld) 8.57 10*3/uL Normal 4.00-10.[address] [facility] Comment on above: Order Comment: No: D o not add to previous draw Performed By: #### 5 0608 #### [facility] [address] [place] [address], [facility] MAGNESIUM BLOODon 12-24-2017 Magnesium mass conc 2.2 mg/dL Normal 1.9-2.[address] [facility] Comment on above: Order Comment: No: D o not add to previous draw Performed By: #### 0 0071, 12062, 09028 #### [facility] [address] [place] [address], [facility] PHOSPHORUS BLOODon 8 Phosphate mass conc 2.7 mg/dL Normal 2.5-5.[address] [facility] Comment on above: Order Comment: No: D o not add to previous draw Performed By: #### 0 0071, 44439, 36789 #### [facility] [address] [place] [address], [facility] POC GLUCOSE LABon 12-24-2017 Glucose mass conc 88 mg/dL Normal 70-[address] [facility] Comment on above: Performed By: #### 8 [id number] #### [facility] [address] [place], [place] [id number] [place] [address] PORTABLE CHEST 1 VIEWon 12-12 PORTABLE CHEST 1 VIEW [facility] Department of Radiology [address] [place] [id number] ======== Patient Name: MELBA LEVY : 1955 Sex: M Age: Race: White Pt. Location: [facility] Patient Status: I Ordered Date: 12/24/2017 5:00:00 AM Completed Date: 12/24/2017 07:55 AM Requesting Provider: FER SHAH Attending Provider: FER SHAH Report Copy To: Signs & Symptoms: Pneumo Thorax History: Patient history not available Comments: R/O Pneumothorax Exam: PORTABLE CHEST 1 VIEW ======== PORTABLE CHEST 1 VIEW 12/24/2017 7:55 AM EDT SIGNS AND SYMPTOMS: Pneumo Thorax TECHNOLOGIST COMMENTS: pneumo thorax QUESTION FOR THE RADIOLOGIST: R/O Pneumothorax PROTOCOL: AP(PA) view was obtained. COMPARISON: December 23, 2017 FINDINGS: Chest tube on the right unchanged. Amount of subcutaneous emphysema in the lower right chest wall and base of the neck on the right side. No pneumothorax seen. Line loss in the right lung with elevation the right hemidiaphragm and right lower lobe atelectasis unchanged. Postsurgical changes heart mediastinum. Left lung clear. Multiple displaced rib fractures are noted on the right side IMPRESSION: No pneumothorax on today's study Elevation of the right hemidiaphragm and right lower lobe density likely representing atelectasis. Multiple displaced rib fractures on the right Electronically signed by:Thai Mcclain. Transcribed by: [email or web address], User Resident: Electronically Signed by: THAI MCCLAIN @ 12/24/2017 10:39 AM Normal [facility] Comment on above: Order Comment: R/O P neumothorax ALCOHOLon 12-23-2017 Ethanol mass conc NONE DETECTED Normal [facility] Comment on above: Order Comment: No: D o not add to previous draw Result Comment: Divi de by 1000 to convert mg/dL to percent. Example: 100mg/dL = 0.1%. Performed By: #### 2 0621 #### [facility] [address] [place] [address], [facility] BASIC METABOLIC PANELon 12-12 Calcium mass conc 9.1 mg/dL Normal 8.6-10.[address] [facility] Comment on above: Order Comment: Yes: Add to Previous draw if able Performed By: #### 0 0071, [id number] #### [facility] [address] [place] [address], [place] Chloride molar conc 95 mmol/L Low 98-[address] [facility] Comment on above: Order Comment: Yes: Add to Previous draw if able Performed By: #### 0 0071, [id number] #### [facility] [address] [place] [address], [facility] CO2 molar conc 24 mmol/L Normal 21-[address] [facility] Comment on above: Order Comment: Yes: Add to Previous draw if able Performed By: #### 0 0071, 28945 #### [facility] [address] [place] [address], [place] Creatinine mass conc 0.74 mg/dL Normal 0.70-1.[address] [facility] Comment on above: Order Comment: Yes: Add to Previous draw if able Performed By: #### 0 0071, 96611 #### [facility] [address] [place] [address], [place] GFR/1.73 sq M predicted among blacks MDRD vol rate/area (S/P/Bld) mL/min/{1.73_m2} Normal >[address] [facility] Comment on above: Order Comment: Yes: Add to Previous draw if able Performed By: #### 0 0071, 85550 #### [facility] [address] [place] [address], [place] GFR/1.73 sq M predicted among non-blacks MDRD vol rate/area (S/P/Bld) mL/min/{1.73_m2} Normal >[address] [facility] Comment on above: Order Comment: Yes: Add to Previous draw if able Performed By: #### 0 0071, 80732 #### [facility] [address] [place] [address], [place] Glucose mass conc 83 mg/dL Normal 70-[address] [facility] Comment on above: Order Comment: Yes: Add to Previous draw if able Performed By: #### 0 0071, 58480 #### [facility] [address] [place] [address], [place] Potassium molar conc 3.2 mmol/L Low 3.5-5.[address] [facility] Comment on above: Order Comment: Yes: Add to Previous draw if able Performed By: #### 0 0071, 37493 #### [facility] [address] [place] [address], [facility] Sodium molar conc 128 mmol/L Low 136-[address] [facility] Comment on above: Order Comment: Yes: Add to Previous draw if able Performed By: #### 0 0071, 33551 #### [facility] [address] [place] [address], [facility] Urea nitrogen mass conc 15 mg/dL Normal 7-[address] [facility] Comment on above: Order Comment: Yes: Add to Previous draw if able Performed By: #### 0 0071, 10497 #### [facility] [address] [place], [place] [address] CBC COMPLETE BLOOD COUNTon 0 - Erythrocyte distribution width Ratio (RBC) 13.7 % Normal 11.5-15.0 [facility] Comment on above: Order Comment: Yes: Add to Previous draw if able Performed By: #### 5 0608 #### [facility] [address] [facility] [place] [address], [facility] Hematocrit Volume Fraction (Bld) 39.9 % Normal 39.0-50.[address] [facility] Comment on above: Order Comment: Yes: Add to Previous draw if able Performed By: #### 5 0608 #### [facility] [address] [place] [address], [facility] Hemoglobin mass conc (Bld) 13.8 g/dL Normal 13.0-17.[address] [facility] Comment on above: Order Comment: Yes: Add to Previous draw if able Performed By: #### 5 0608 #### [facility] [address] [place] [address], [facility] MCH Entitic mass (RBC) 31.0 pg Normal 27.0-33.[address] [facility] Comment on above: Order Comment: Yes: Add to Previous draw if able Performed By: #### 5 0608 #### [facility] [address] MCHC mass conc (RBC) 34.6 g/dL Normal 32.0-35.[address] [facility] Comment on above: Order Comment: Yes: Add to Previous draw if able Performed By: #### 5 0608 #### [facility] [address] MCV Entitic volume (RBC) 89.7 fL Normal 82.0-98.[address] [facility] Comment on above: Order Comment: Yes: Add to Previous draw if able Performed By: #### 5 0608 #### [facility] [address] Nucleated RBC/100 WBC Ratio (Bld) 0 % Normal 0-[address] [facility] Comment on above: Order Comment: Yes: Add to Previous draw if able Performed By: #### 5 0608 #### [facility] [address] [facility] PLAT CNT 199 10*3/uL Normal 150-[address] [facility] Comment on above: Order Comment: Yes: Add to Previous draw if able Performed By: #### 5 0608 #### [facility] [address] [facility] RBC #/vol (Bld) 4.45 10*6/uL Normal 4.20-5.[address] [facility] Comment on above: Order Comment: Yes: Add to Previous draw if able Performed By: #### 5 0608 #### [facility] [address] [facility] WBC #/vol (Bld) 11.06 10*3/uL High 4.00-10.[address] [facility] Comment on above: Order Comment: Yes: Add to Previous draw if able Performed By: #### 5 0608 #### [facility] [address] [place] [address], [facility] MAGNESIUM BLOODon 12-23-2017 Magnesium mass conc 1.8 mg/dL Low 1.9-2.[address] [facility] Comment on above: Performed By: #### 0 0071, [id number] #### [facility] [address] [place] [address], [facility] Vital Signs Date Time Vital Sign Value Performing Clinician Facility 03-16-2023 18:00-0400 Hourly Rounding [facility] 03-16-2023 18:00-0400 Promise to Return [facility] 03-16-2023 17:17-0400 Hourly Rounding [facility] 03-16-2023 17:17-0400 Promise to Return [facility] 03-16-2023 16:47-0400 Hourly Rounding [facility] 03-16-2023 16:47-0400 Promise to Return [facility] 03-16-2023 16:09-0400 Heart rate 70 /min [facility] 03-16-2023 16:09-0400 Respiratory rate 20 /min [facility] 03-16-2023 16:02-0400 Heart rate 69 /min [facility] 03-16-2023 16:02-0400 Respiratory rate 20 /min [facility] 03-16-2023 16:02-0400 SaO2% (BldA) [Mass fraction] 96 % [facility] 03-16-2023 15:58-0400 Heart rate 68 /min [facility] 03-16-2023 15:58-0400 SaO2% (BldA) [Mass fraction] 96 % [facility] 03-16-2023 15:58-0400 Diastolic blood pressure 80 mm[Hg] [facility] 03-16-2023 15:58-0400 Mean blood pressure 97 mm[Hg] [facility] 03-16-2023 15:58-0400 Systolic blood pressure 131 mm[Hg] [facility] 03-16-2023 15:58-0400 Mean blood pressure 97 mm[Hg] [facility] 03-16-2023 15:57-0400 Body temperature 98.06 [degF] [facility] 03-16-2023 11:59-0400 Respiratory rate 18 /min [facility] 03-16-2023 11:50-0400 SaO2% (BldA) [Mass fraction] 94 % [facility] 03-16-2023 10:57-0400 Diastolic blood pressure 105 mm[Hg] [facility] 03-16-2023 10:57-0400 Mean blood pressure 123 mm[Hg] [facility] 03-16-2023 10:57-0400 Systolic blood pressure 159 mm[Hg] [facility] 03-16-2023 10:57-0400 Body temperature 98.06 [degF] [facility] 03-16-2023 10:19-0400 Diastolic blood pressure 95 mm[Hg] [facility] 03-16-2023 10:19-0400 Systolic blood pressure 188 mm[Hg] [facility] 03-16-2023 07:48-0400 Body temperature 97.52 [degF] [facility] 03-16-2023 07:47-0400 Mean blood pressure 118 mm[Hg] [facility] 03-16-2023 07:47-0400 Mean blood pressure 118 mm[Hg] [facility] 03-16-2023 00:18-0400 Body temperature 98.06 [degF] [facility] 03-15-2023 18:26-0400 Heart rate 78 /min [facility] 03-15-2023 14:32-0400 Heart rate 71 /min [facility] 03-15-2023 10:31-0400 Heart rate 64 /min [facility] 03-15-2023 03:07-0400 Blood Pressure Location [facility] 03-15-2023 02:21-0400 Heart rate 105 /min [facility] 03-15-2023 01:40-0400 Blood Pressure Location [facility] 03-15-2023 01:09-0400 Blood Pressure Location [facility] 03-15-2023 00:16-0400 Body temperature 97.7 [degF] [facility] 03-14-2023 12:00-0400 Body temperature 97.88 [degF] [facility] 03-14-2023 09:00-0400 Respiratory rate 18 /min [facility] 03-13-2023 23:30-0400 Diastolic blood pressure 66 mm[Hg] Et3 [facility] 03-13-2023 23:30-0400 Heart rate 58 /min Et3 [facility] 03-13-2023 23:30-0400 Respiratory rate 16 /min Et3 [facility] 03-13-2023 23:30-0400 SaO2% (BldA) [Mass fraction] 92 % Et[facility] 03-13-2023 23:30-0400 Systolic blood pressure 113 mm[Hg] Et3 [facility] 01-24-2023 01:09-0400 Body height 185.42 cm [facility] 01-24-2023 01:09-0400 Body temperature 97.9 [degF] [facility] 01-24-2023 01:09-0400 Body weight 63.5 kg [facility] 01-24-2023 01:09-0400 Diastolic blood pressure 88 mm[Hg] [facility] 01-24-2023 01:09-0400 Heart rate 67 /min [facility] 01-24-2023 01:09-0400 Respiratory rate 22 /min [facility] 01-24-2023 01:09-0400 SaO2% (BldA) [Mass fraction] 97 % [facility] 01-24-2023 01:09-0400 Systolic blood pressure 161 mm[Hg] [facility] 08-14-2022 01:32-0500 Diastolic blood pressure 115 mm[Hg] [facility] 08-14-2022 01:32-0500 Heart rate 84 /min [facility] 08-14-2022 01:32-0500 Respiratory rate 18 /min [facility] 08-14-2022 01:32-0500 SaO2% (BldA) [Mass fraction] 94 % [facility] 08-14-2022 01:32-0500 Systolic blood pressure 175 mm[Hg] [facility] 08-14-2022 01:17-0500 Body temperature 96.8 [degF] [facility] 08-14-2022 01:17-0500 Diastolic blood pressure 120 mm[Hg] [facility] 08-14-2022 01:17-0500 Heart rate 74 /min [facility] 08-14-2022 01:17-0500 Respiratory rate 22 /min [facility] 08-14-2022 01:17-0500 SaO2% (BldA) [Mass fraction] 84 % [facility] 08-14-2022 01:17-0500 Systolic blood pressure 187 mm[Hg] [facility] 08-14-2022 01:13-0500 Body temperature 97.52 [degF] [facility] 08-14-2022 01:13-0500 Diastolic blood pressure 105 mm[Hg] [facility] 08-14-2022 01:13-0500 Heart rate 96 /min [facility]em Velasquez[facility] 08-14-2022 01:13-0500 Respiratory rate 18 /min Cem Aquino [facility] 08-14-2022 01:13-0500 SaO2% (BldA) [Mass fraction] 98 % [facility]quez[facility] 08-14-2022 01:13-0500 Systolic blood pressure 147 mm[Hg] [facility]quez[facility] 04-19-2022 16:40-0400 Hourly Rounding Jamshid Stew[facility] 04-19-2022 16:40-0400 Promise to Return Jamshidedith Stewarter [facility] 04-19-2022 15:47-0400 Blood Pressure Location Jamshid Alaina [facility] 04-19-2022 15:47-0400 Body temperature 97.88 [degF] Jamshid Alaina [facility] 04-19-2022 15:47-0400 BP/Pulse Patient Position Jamshid Alaina [facility] 04-19-2022 15:47-0400 Diastolic blood pressure 96 mm[Hg] Jamshid Alaina [facility] 04-19-2022 15:47-0400 Heart rate 85 /min Jamshid Alaina [facility] 04-19-2022 15:47-0400 Mean blood pressure 117 mm[Hg] Jamshid Alaina [facility] 04-19-2022 15:47-0400 Respiratory rate 18 /min Jamshid Alaina [facility] 04-19-2022 15:47-0400 SaO2% (BldA) [Mass fraction] 94 % Jamshid Alaina [facility] 04-19-2022 15:47-0400 Systolic blood pressure 159 mm[Hg] Jamshid Alaina [facility] 04-19-2022 15:26-0400 Hourly Rounding Jamshid Alaina [facility] 04-19-2022 15:26-0400 Promise to Return Jamshid Alaina [facility] 04-19-2022 14:15-0400 Hourly Rounding Jamshid Alaina [facility] 04-19-2022 14:15-0400 Promise to Return Jamshid Alaina [facility] 04-19-2022 14:00-0400 Diastolic blood pressure 64 mm[Hg] Jamshid Alaina [facility] 04-19-2022 14:00-0400 Systolic blood pressure 133 mm[Hg] Jamshid Alain[facility] 04-19-2022 12:16-0400 Blood Pressure Location Jamshid Alaina [facility] 04-19-2022 12:16-0400 Body temperature 98.06 [degF] Jamshid Alaina [facility] 04-19-2022 12:16-0400 BP/Pulse Patient Position Jamshid Alaina [facility] 04-19-2022 12:16-0400 Diastolic blood pressure 98 mm[Hg] Jamshid Alaina [facility] 04-19-2022 12:16-0400 Heart rate 80 /min Jamshid Alaina [facility] 04-19-2022 12:16-0400 Mean blood pressure 119 mm[Hg] Jamshid Alaina [facility] 04-19-2022 12:16-0400 Respiratory rate 18 /min Jamshid Alaina [facility] 04-19-2022 12:16-0400 SaO2% (BldA) [Mass fraction] 98 % Jamshid Alaina [facility] 04-19-2022 12:16-0400 Systolic blood pressure 161 mm[Hg] Jamshid Alaina [facility] 04-19-2022 07:49-0400 SaO2% (BldA) [Mass fraction] 95 % Jamshid Alaina [facility] 04-19-2022 07:46-0400 Body temperature 98.06 [degF] Jamshid Alaina [facility] 04-19-2022 07:46-0400 Heart rate 101 /min Jamshid Alaina [facility] 04-19-2022 07:46-0400 Mean blood pressure 136 mm[Hg] Jamshid Alaina [facility] 04-19-2022 03:45-0400 Heart rate 100 /min Jamshid Alaina [facility] 04-19-2022 02:30-0400 Mean blood pressure 128 mm[Hg] Jamshid Alaina [facility] 04-19-2022 02:30-0400 Respiratory rate 16 /min Jamshid Alaina [facility] 04-19-2022 01:30-0400 Mean blood pressure 102 mm[Hg] Jamshid Foley [facility] 04-19-2022 01:30-0400 Nursing Progress Note Reason Other: Urinal emptied and clean one provided to pt. Jamshid Foley [facility] 04-19-2022 00:30-0400 Mean blood pressure 108 mm[Hg] Jamshid Stewarter [facility] 04-19-2022 00:30-0400 Nursing Progress Note Reason Other: Pt resting on cart with eyes closed. Jamshid Foley [facility] 04-18-2022 23:30-0400 Nursing Progress Note Reason Other: Pt repositioned on cart. [place] provided. Jamshid Foley [facility] 04-18-2022 18:08-0400 Heart rate 89 /min Jamshid Stewarter [facility] 04-18-2022 17:08-0400 Heart rate 100 /min Jamshid Stewarter [facility] 04-18-2022 15:04-0400 gluc 83 mg/dL Jamshid Stewarter [facility] 04-18-2022 15:04-0400 gluc Jamshid Foley [facility] 04-04-2022 16:00-0400 Diastolic blood pressure 68 mm[Hg] Ronobir MAGALIE [facility] 04-04-2022 16:00-0400 Heart rate 60 /min Ronobir MAGALIE [facility] 04-04-2022 16:00-0400 Hourly Rounding Ronobir MAGALIE [facility] 04-04-2022 16:00-0400 Mean blood pressure 79 mm[Hg] Ronobir MAGALIE [facility] 04-04-2022 16:00-0400 Promise to Return Ronobir MAGALIE [facility] 04-04-2022 16:00-0400 Respiratory rate 14 /min Ronobir MAGALIE [facility] 04-04-2022 16:00-0400 SaO2% (BldA) [Mass fraction] 100 % Ronobir MAGALIE [facility] 04-04-2022 16:00-0400 Systolic blood pressure 102 mm[Hg] Ronobir MAGALIE [facility] 04-04-2022 15:00-0400 Heart rate 66 /min Ronobir MAGALIE [facility] 04-04-2022 15:00-0400 Hourly Rounding Ronobir MAGALIE [facility] 04-04-2022 15:00-0400 Promise to Return Ronobir MAGAL[facility] [facility] 04[facility]22 15:00-0400 Respiratory rate 30 /min Ronobir MAGALIE [facility] 04-04-2022 15:00-0400 SaO2% (BldA) [Mass fraction] 95 % Ronobir MAGALIE [facility] 04-04-2022 14:00-0400 Diastolic blood pressure 90 mm[Hg] Ronobir MAGALIE [facility] 04-04-2022 14:00-0400 Heart rate 71 /min Ronobir MAGALIE [facility] 04-04-2022 14:00-0400 Hourly Rounding Ronobir MAGALIE [facility] 04-04-2022 14:00-0400 Mean blood pressure 103 mm[Hg] Ronobir MAGALIE [facility] 04-04-2022 14:00-0400 Promise to Return Ronobir MAGALIE [facility] 04-04-2022 14:00-0400 Respiratory rate 18 /min Ronobir MAGALIE [facility] 04-04-2022 14:00-0400 Systolic blood pressure 130 mm[Hg] Ronobir MAGALIE [facility] 04-04-2022 12:00-0400 Diastolic blood pressure 104 mm[Hg] Ronobir MAGALIE [facility] 04-04-2022 12:00-0400 Mean blood pressure 128 mm[Hg] Ronobir MAGALIE [facility] 04-04-2022 12:00-0400 Systolic blood pressure 175 mm[Hg] Ronobir MAGALIE [facility] 04-04-2022 11:00-0400 Body temperature 98.06 [degF] Ronobir MAGALIE [facility] 04-04-2022 08:00-0400 Respiratory rate 20 /min Ronobir MAGALIE [facility] 04-04-2022 07:45-0400 Respiratory rate 22 /min Ronobir MAGALIE [facility] 04-04-2022 07:00-0400 Blood Pressure Location Ronobir MAGALIE [facility] 04-04-2022 07:00-0400 Body temperature 97.52 [degF] Ronobir MAGALIE [facility] 04-04-2022 01:27-0400 Respiratory rate 18 /min Ronobir MAGALIE [facility] 04-04-2022 01:16-0400 Body temperature 97.7 [degF] Ronobir MAGALIE [facility] 04-04-2022 01:16-0400 Heart rate 101 /min Ronobir MAGALIE [facility] 04-03-2022 20:25-0400 Heart rate 87 /min Ronobir MAGALIE [facility] 04-03-2022 20:10-0400 Heart rate 93 /min Ronobir MAGALIE [facility] 2021 22:08-0400 Hourly Rounding Ronobir MAGALIE [facility] 2021 22:08-0400 Promise to Return Ronobir MAGALIE [facility] 2021 21:08-0400 Hourly Rounding Ronobir MAGALIE [facility] 2021 21:08-0400 Promise to Return Ronobir MAGALIE [facility] 2021 20:08-0400 Hourly Rounding Ronobir MAGALIE [facility] 2021 20:08-0400 Promise to Return Ronobir MAGALIE [facility] 2021 17:00-0400 Diastolic blood pressure 88 mm[Hg] Ronobir MAGALIE [facility] 2021 17:00-0400 Heart rate 80 /min Ronobir MAGALIE [facility] 2021 17:00-0400 Systolic blood pressure 157 mm[Hg] Ronobir MAGALIE [facility] 2021 16:32-0400 SaO2% (BldA) [Mass fraction] 95 % Ronobir MAGALIE [facility] 2021 16:00-0400 Diastolic blood pressure 80 mm[Hg] Ronobir MAGALIE [facility] 2021 16:00-0400 Heart rate 157 /min Ronobir MAGALIE [facility] 2021 16:00-0400 Systolic blood pressure 88 mm[Hg] Ronobir MAGALIE [facility] 2021 15:52-0400 Blood Pressure Location Ronobir MAGALIE [facility] 2021 15:52-0400 Body temperature 97.88 [degF] Ronobir MAGALIE [facility] 2021 15:52-0400 BP/Pulse Patient Position Ronobir MAGALIE [facility] 2021 15:52-0400 Diastolic blood pressure 97 mm[Hg] Ronobir MAGALIE [facility] 2021 15:52-0400 Heart rate 78 /min Ronobir MAGALIE [facility] 2021 15:52-0400 Mean blood pressure 125 mm[Hg] Ronobir MAGALIE [facility] 2021 15:52-0400 Respiratory rate 16 /min Ronobir MAGALIE [facility] 2021 15:52-0400 SaO2% (BldA) [Mass fraction] 91 % Ronobir MAGALIE [facility] 2021 15:52-0400 Systolic blood pressure 181 mm[Hg] Ronobir MAGALIE [facility] 2021 14:00-0400 Mean blood pressure 116 mm[Hg] Ronobir MAGALIE [facility] 2021 11:18-0400 Blood Pressure Location Ronobir MAGALIE [facility] 2021 11:18-0400 Body temperature 98.6 [degF] Ronobir MAGALIE [facility] 2021 11:18-0400 BP/Pulse Patient Position Ronobir MAGALIE [facility] 2021 11:18-0400 Heart rate 76 /min Ronobir MAGALIE [facility] 2021 11:18-0400 Mean blood pressure 94 mm[Hg] Ronobir MAGALIE [facility] 2021 11:18-0400 Respiratory rate 18 /min Ronobir MAGALIE [facility] 2021 11:18-0400 SaO2% (BldA) [Mass fraction] 95 % Ronobir MAGALIE [facility] 2021 08:00-0400 Heart rate 83 /min Ronobir MAGALIE [facility] 2021 07:43-0400 Blood Pressure Location Ronobir MAGALIE [facility] 2021 07:43-0400 Body temperature 98.96 [degF] Ronobir MAGALIE [facility] 2021 07:43-0400 BP/Pulse Patient Position Ronobir MAGALIE [facility] 2021 07:43-0400 Mean blood pressure 108 mm[Hg] Ronobir MAGALIE [facility] 2021 07:43-0400 Respiratory rate 18 /min Ronobir MAGALIE [facility] 12-17-2021 16:56-0400 Mean blood pressure 109 mm[Hg] Ronobir MAGALIE [facility] 12-17-2021 08:00-0400 Mean blood pressure 132 mm[Hg] Ronobir MAGALIE [facility] 12-15-2021 19:39-0400 FIO2 32 % Ronobir MAGALIE [facility] 12-15-2021 05:23-0400 Heart rate 98 /min Ronobir MAGALIE [facility] 12-15-2021 02:53-0400 Nursing Progress Note Reason Other: pt assisted at side of bed with urinal. back to bed. Ronobir MAGALIE [facility] 12-12-2021 08:20-0400 Diastolic blood pressure 100 mm[Hg] Moody Johny [facility] 12-12-2021 08:20-0400 Heart rate 77 /min Moody Johny [facility] 12-12-2021 08:20-0400 Mean blood pressure 112 mm[Hg] Moody Johny [facility] 12-12-2021 08:20-0400 Respiratory rate 18 /min Moody Johny [facility] 12-12-2021 08:20-0400 SaO2% (BldA) [Mass fraction] 96 % Moody Johny [facility] 12-12-2021 08:20-0400 Systolic blood pressure 136 mm[Hg] Moody Johny [facility] 12-12-2021 07:16-0400 Diastolic blood pressure 90 mm[Hg] Moody Johny [facility] 12-12-2021 07:16-0400 Heart rate 66 /min Moody Johny [facility] 12-12-2021 07:16-0400 Mean blood pressure 112 mm[Hg] Moody Johny [facility] 12-12-2021 07:16-0400 Respiratory rate 12 /min Moody Johny [facility] 12-12-2021 07:16-0400 SaO2% (BldA) [Mass fraction] 97 % Moody Johny [facility] 12-12-2021 07:16-0400 Systolic blood pressure 156 mm[Hg] Moody Johny [facility] 12-12-2021 06:02-0400 Diastolic blood pressure 64 mm[Hg] Moody Johny [facility] 12-12-2021 06:02-0400 Heart rate 64 /min Moody Johny [facility] 12-12-2021 06:02-0400 Mean blood pressure 88 mm[Hg] Moody Johny [facility] 12-12-2021 06:02-0400 Respiratory rate 10 /min Moody Johny [facility] 12-12-2021 06:02-0400 SaO2% (BldA) [Mass fraction] 97 % Moody Mcclain [facility] 12-12-2021 06:02-0400 Systolic blood pressure 136 mm[Hg] Moody Mcclain [facility] 12-12-2021 00:00-0400 Body temperature 98.78 [degF] Moody Mcclain [facility] 12-12-2021 00:00-0400 Respiratory rate 16 /min Moody Mcclain [facility] 12-07-2021 15:25-0400 Heart rate 71 /min [facility] 12-07-2021 15:25-0400 Respiratory rate 20 /min [facility] 12-07-2021 15:25-0400 SaO2% (BldA) [Mass fraction] 92 % [facility] 12-07-2021 15:11-0400 Hourly Rounding [facility] 12-07-2021 15:11-0400 Promise to Return [facility] 12-07-2021 14:12-0400 Hourly Rounding [facility] 12-07-2021 14:12-0400 Promise to Return [facility] 12-07-2021 13:42-0400 Hourly Rounding [facility] 12-07-2021 13:42-0400 Promise to Return [facility] 12-07-2021 11:45-0400 Heart rate 79 /min [facility] 12-07-2021 11:45-0400 Respiratory rate 16 /min [facility] 12-07-2021 11:45-0400 SaO2% (BldA) [Mass fraction] 96 % [facility] 12-07-2021 11:32-0400 Heart rate 80 /min [facility] 12-07-2021 11:32-0400 Respiratory rate 16 /min [facility] 12-07-2021 11:32-0400 SaO2% (BldA) [Mass fraction] 96 % [facility] 12-07-2021 11:09-0400 Blood Pressure Location [facility] 12-07-2021 11:09-0400 Body temperature 97.7 [degF] [facility] 12-07-2021 11:09-0400 BP/Pulse Patient Position [facility] 12-07-2021 11:09-0400 Diastolic blood pressure 75 mm[Hg] [facility] 12-07-2021 11:09-0400 Mean blood pressure 99 mm[Hg] [facility] 12-07-2021 11:09-0400 Systolic blood pressure 146 mm[Hg] [facility] 12-07-2021 09:04-0400 Blood Pressure Location [facility] 12-07-2021 09:04-0400 Body temperature 97.7 [degF] [facility] 12-07-2021 09:04-0400 BP/Pulse Patient Position [facility] 12-07-2021 09:04-0400 Diastolic blood pressure 96 mm[Hg] [facility] 12-07-2021 09:04-0400 Mean blood pressure 126 mm[Hg] [facility] 12-07-2021 09:04-0400 Systolic blood pressure 185 mm[Hg] [facility] 12-07-2021 08:54-0400 Blood Pressure Location [facility] 12-07-2021 08:54-0400 Body temperature 98.06 [degF] [facility] 12-07-2021 08:54-0400 Diastolic blood pressure 89 mm[Hg] [facility] 12-07-2021 08:54-0400 Mean blood pressure 116 mm[Hg] [facility] 12-07-2021 08:54-0400 Systolic blood pressure 169 mm[Hg] [facility] 12-07-2021 06:57-0400 Heart rate 88 /min [facility] 12-07-2021 06:57-0400 Mean blood pressure 111 mm[Hg] [facility] 12-07-2021 06:55-0400 Heart rate 84 /min [facility] 12-07-2021 06:55-0400 Mean blood pressure 104 mm[Hg] [facility] 12-07-2021 03:10-0400 Mean blood pressure 123 mm[Hg] [facility] 12-07-2021 00:00-0400 Heart rate 70 /min [facility] 11-13-2021 15:50-0400 SaO2% (BldA) [Mass fraction] 96 % Joesph CARMONA [facility] 11-13-2021 13:30-0400 Hourly Rounding Joesph CARMONA [facility] 11-13-2021 11:31-0400 Body temperature 98.06 [degF] Joesph CARMONA [facility] 11-13-2021 11:31-0400 Diastolic blood pressure 71 mm[Hg] Joesph SCHILLINGLIN [facility] 11-13-2021 11:31-0400 Heart rate 66 /min Joesph SCHILLINGLIN [facility] 11-13-2021 11:31-0400 Mean blood pressure 82 mm[Hg] Joesph CARRENOSLIN [facility] 11-13-2021 11:31-0400 Respiratory rate 18 /min Joesph SCHILLINGLIN [facility] 11-13-2021 11:31-0400 SaO2% (BldA) [Mass fraction] 94 % Joesphabdulaziz CARRENOSLIN [facility] 11-13-2021 11:31-0400 Systolic blood pressure 104 mm[Hg] Joesphabdulaziz CARRENOSLIN [facility] 11-13-2021 11:00-0400 Promise to Return Joesphabdulaziz CARRENOSLIN [facility] 11-13-2021 08:03-0400 SaO2% (BldA) [Mass fraction] 98 % Joesphabdulaziz CARRENOSLIN [facility] 11-13-2021 07:49-0400 Body temperature 97.7 [degF] Joesphabdulaziz CARRENOSLIN [facility] 11-13-2021 07:49-0400 Diastolic blood pressure 70 mm[Hg] Joesphabdulaziz CARRENOSLIN [facility] 11-13-2021 07:49-0400 Heart rate 73 /min Joesphabdulaziz CARRENOSLIN [facility] 11-13-2021 07:49-0400 Mean blood pressure 82 mm[Hg] Joesphabdulaziz CARRENOSLIN [facility] 11-13-2021 07:49-0400 Respiratory rate 18 /min Joesphabdulaziz CARRENOSLIN [facility] 11-13-2021 07:49-0400 Systolic blood pressure 105 mm[Hg] Joesphabdulaziz CARRENOSLIN [facility] 11-13-2021 04:00-0400 Blood Pressure Location Joesphabdulaziz CARRENOSLIN [facility] 11-13-2021 04:00-0400 Diastolic blood pressure 80 mm[Hg] Joesph KRISTINE [facility] 11-13-2021 04:00-0400 Heart rate 63 /min Ojesphabdulaziz CARRENOSLIN [facility] 11-13-2021 04:00-0400 Mean blood pressure 99 mm[Hg] Joesphabdulaziz CARRENOSLIN [facility] 11-13-2021 04:00-0400 Systolic blood pressure 137 mm[Hg] Joesphabudlaziz CARRENOSLIN [facility] 11-13-2021 00:00-0400 Blood Pressure Location Joesphabdulaziz CARRENOSLIN [facility] 11-13-2021 00:00-0400 Mean blood pressure 88 mm[Hg] Joesph KRISTINE [facility] 11-12-2021 19:06-0400 Mean blood pressure 93 mm[Hg] Joesphabdulaziz CARRENOSLIN [facility] 11-12-2021 15:50-0400 Blood Pressure Location Joesphabdulaziz CARRENOSLIN [facility] 11-12-2021 15:50-0400 Body temperature 97.7 [degF] Joesph CARRENOSLIN [facility] 11-12-2021 15:50-0400 Mean blood pressure 94 mm[Hg] Joesphabdulaziz CARRENOSLIN [facility] 11-12-2021 15:50-0400 Respiratory rate 16 /min Joesph KRISTINE [facility] 11-12-2021 08:49-0400 Heart rate 20 /min Joesph KRISTINE [facility] 11-12-2021 04:18-0400 Heart rate 80 /min Joesph KRISTINE [facility] 11-12-2021 04:00-0400 Respiratory rate 22 /min Joesph KRISTINE [facility] 11-12-2021 03:00-0400 Respiratory rate 18 /min Joesph CARMONA [facility] 11-11-2021 23:34-0400 Heart rate 78 /min Joesph CARMONA [facility] 12-30-2017 06:51-0400 Respiratory rate 20 /min REFERRED SELF [facility] Comment on above: Performed By: #### [id number] #### [facility] [address] [place] [address], [facility] 12-29-2017 18:14-0400 Respiratory rate 20 /min REFERRED SELF [facility] Comment on above: Performed By: #### [id number] ### [facility] [address] [place] [address], [facility] 12-29-2017 16:15-0400 Respiratory rate 14 /min REFERRED SELF [facility] Comment on above: Order Comment: No: Do not add to previou s draw Performed By: #### [id number] #### [facility] [address] [facility] Encounters Encounter Date Encounter Type Care Provider Facility Start: 08-04-2023 End: 08-05-2023 ambulatory Marce Zapata MD Facility:[facility] Start: 07-30-2023 ambulatory [facility] Start: 07-30-[address] care plan [facility] Comment on above: [facility] OUTREACH [facility]; C are Coordination Start: 03-18-2023 End: 04-12-2023 ambulatory UNKNOWN PROVIDER Facility:[facility] Start: 03-18-2023 Patient encounter procedure Itrross De La Rosa Work Phone: [facility] Start: 03-18-2023 Progress Note Mallika De La Rosa Work Phone: [facility] Start: 03-14-2023 End: 03-16-2023 ambulatory [place] GANN [place] [place]: 03-14-2023 End: 03-16-2023 Observation Dora GANN [facility] Start: 03-13-2023 End: 03-13-2023 ambulatory [facility] Start: 03-13-2023 End: 03-13-2023 Emergency department patient visit [facility] Comment on above: Arrived Start: 01-24-2023 End: 01-24-2023 Emergency department patient visit NON STAFF Facility:[facility] Start: 01-24-2023 End: 01-24-2023 Emergency department patient visit [facility] Work Phone: Start: 08-18-2022 End: 08-19-2022 ambulatory Leo CAMERON Facility[facility] Start: 08-18-2022 End: 08-18-2022 Off-Site Leo CAMERON [facility] Start: 08-14-2022 ambulatory Cem Aquino Facility[facility] Start: 08-14-2022 End: 08-14-2022 Emergency department patient visit Cem Aquino [place] Start: 08-14-2022 End: 08-14-2022 Emergency department patient visit Cem Aquino [facility] Start: 07-12-2022 End: 07-30-2022 ambulatory [facility] Start: 07-12-2022 End: 07-30-2022 Emergency department patient visit [facility] Treat [facility] Transport Start: 05-02-2022 End: 05-03-2022 ambulatory [facility] Start: 05-02-2022 End: 05-02-2022 Subsequent hospital visit by physician Leo TURK Work Phone: [facility] Start: 04-29-2022 End: 04-29-2022 Patient encounter procedure Duglas CRZU [facility] Start: 04-18-2022 End: 04-19-2022 Observation Jamshid Foley [facility] Start: 04-12-2022 End: 04-12-2022 Patient encounter procedure Duglas CRUZ [facility] Start: 04-03-2022 End: 04-04-2022 Evaluation and management of inpatient Avni MEJIAS [facility] Start: 01-18-2022 End: 01-18-2022 Lab Drop off Duglas CRUZ [facility] Start: 01-18-2022 End: 01-18-2022 Patient encounter procedure Duglas CRUZ [facility] Start: 01-15-2022 Patient encounter procedure Asael Sheppard APRN.OYSTER HARVESTER Work Phone: [facility] Start: 01-15-2022 Progress Note Asael VILLANUEVA RN.OYSTER HARVESTER Work Phone: [facility] Start: 01-08-2022 Patient encounter procedure Itri Raisa Rj Work Phone: [facility] Start: 01-08-2022 Progress Note Itri A Rj Work Phone: [facility] Start: 01-07-2022 Patient encounter procedure Asael Sheppard TROUBLE SHOOTER.OYSTER HARVESTER Work Phone: [facility] Start: 01-07-2022 Progress Note Asael VILLANUEVA RN.OYSTER HARVESTER Work Phone: [facility] Start: 01-01-2022 Patient encounter procedure Asael Sheppard TROUBLE SHOOTER.OYSTER HARVESTER Work Phone: [facility] Start: 01-01-2022 Progress Note Asael VILLANUEVA RN.OYSTER HARVESTER Work Phone: [facility] Start: 12-27-2021 Patient encounter procedure Asael Sheppard APRN.OYSTER HARVESTER Work Phone: [facility] Start: 12-27-2021 Progress Note Asael VILLANUEVA RN.OYSTER HARVESTER Work Phone: [facility] Start: 12-19-2021 Patient encounter procedure Mallika Thomsonn Work Phone: [facility] Start: 12-19-2021 Progress Note Itri A Rj Work Phone: [facility] Start: 12-14-2021 End: 2021 Evaluation and management of inpatient Avni MEJIAS [facility] Start: 12-11-2021 End: 12-12-2021 Emergency department patient visit Moody Mcclain [facility] Start: 12-11-2021 End: 12-11-2021 Patient encounter procedure Duglas CRUZ [facility] [place] Start: 12-06-2021 End: 12-07-2021 Observation Alejandro MARTINEZ [facility] Start: 11-11-2021 End: 11-13-2021 Evaluation and management of inpatient Joesph CARMONA [facility] Start: 10-19-2021 Patient encounter procedure Asael Sheppard APRN.OYSTER HARVESTER Work Phone: [facility] Start: 10-19-2021 Progress Note Asael VILLANUEVA RN.OYSTER HARVESTER Work Phone: [facility] Start: 10-16-2021 Patient encounter procedure Asael Sheppard APRN.OYSTER HARVESTER Work Phone: [facility] Start: 10-16-2021 Progress Note Asael VILLANUEVA RN.OYSTER HARVESTER Work Phone: [facility] Start: 09-22-2020 End: 09-22-2020 Subsequent hospital visit by physician Elena MULLINS Laboratory Comment on above: Polyarthralgia Start: 05-07-2019 End: 05-07-2019 Subsequent hospital visit by physician Elena MULLINS Laboratory Comment on above: Lumbar spondylosis Start: 02-23-2018 End: 02-24-2018 Patient encounter procedure KATIA BOYCE Facility:[facility] Start: 01-11-2018 End: 01-17-2018 Evaluation and management of inpatient ELENA ANN Facility:[facility] Start: 01-10-2018 End: 01-11-2018 Evaluation and management of inpatient AMER TATY [facility] Start: 12-23-2017 End: 01-09-2018 Evaluation and management of inpatient REFERRED SELF Facility:[facility] Procedures Date Procedure Procedure Detail Performing Clinician Start: 09-22-2020 Drug screen class list a Sadiq oTmer Whyte Work Phone: Start: 01-11-2018 PULSE OXIMETRY, CONTINUOUS AMER TATY Start: 01-11-2018 MRSA DNA PROBE, NASAL A MILDRED TATY Start: 01-11-2018 PULSE OXIMETRY, CONTINUOUS AMER TATY Start: 01-11-2018 Dup-scan xtr veins c omplete bilateral study AMER TATY Start: 01-11-2018 FALL PRECAUTIONS AMER A RSHAD Start: 01-11-2018 PULSE OXIMETRY, CONTINUOUS AMER TATY Start: 01-11-2018 RESPIRATORY CARE FLAVIO LUATION AND TREAT AMER TATY Start: 01-11-2018 Basic metabolic pane l calcium total AMER TATY Start: 01-11-2018 Blood count complete auto&auto difrntl wbc AMER TATY Start: 01-11-2018 PULSE OXIMETRY, CONTINUOUS AMER TATY Start: 01-11-2018 Dup-scan lxtr art/ar tl bpgs compl bi study AMER TATY Start: 01-11-2018 PULSE OXIMETRY, CONTINUOUS AMER TATY Start: 01-11-2018 CULTURE BLOOD #1 AMER A RSHAD Start: 01-10-2018 CULTURE BLOOD #1 AMER A RSHAD Start: 01-10-2018 D-DIMER, QUANTITATIVE A MILDRED TATY Start: 01-10-2018 PULSE OXIMETRY, CONTINUOUS AMER TATY Start: 01-10-2018 Echo tthrc r-t 2d w/ wom-mode compl spec&colr d AMER TATY Start: 01-10-2018 IP CONSULT TO PULMONOLOGY AMER TATY Start: 01-10-2018 BLOOD GAS, VENOUS AMER TATY Start: 01-10-2018 PHARMACY TO DOSE VANCOMYCIN AMER TATY Start: 01-10-2018 RESPIRATORY CARE FLAVIO LUATION AND TREAT AMER TATY Start: 01-10-2018 PULSE OXIMETRY, CONTINUOUS AMER TATY Start: 01-10-2018 DIET CARDIAC AMER ARSHA D Start: 01-10-2018 FULL CODE AMER ARSHA D Start: 01-10-2018 NOTIFY PHYSICIAN (SPECIFY) AMER TATY Start: 01-10-2018 REASON FOR NO MECHAN ICAL VTE PROPHYLAXIS AMER TATY Start: 01-10-2018 TELEMETRY MONITORING AM ER TATY Start: 01-10-2018 VITAL SIGNS AMER ARSHA D Start: 01-10-2018 TROPONIN AMER ARSHA D Start: 01-10-2018 Ct thorax w/contrast material AMER TATY Start: 01-10-2018 PATIENT STATUS (FROM ED OR OR/PROCEDURAL) AMER TATY Start: 01-10-2018 INITIATE RT PROTOCOL AM ER TATY Start: 01-10-2018 IP CONSULT TO CURB BUILDER AL MEDICINE AMER TATY Start: 01-10-2018 EKG 12-LEAD AMER ARSHA D Start: 01-10-2018 Radiologic exam ches t single view AMER TATY Start: 01-10-2018 INSERT PERIPHERAL IV AM ER TATY Start: 01-10-2018 Blood count complete auto&auto difrntl wbc AMER TATY Start: 01-10-2018 BRAIN NATRIURETIC PEPTIDE AMER TATY Start: 01-10-2018 Comprehensive metabo lic panel AMER TATY Start: 01-10-2018 Prothrombin time AMER A RSHAD Start: 01-10-2018 Thromboplastin time partial plasma/whole blood AMER TATY Start: 01-10-2018 TROPONIN AMER ARSHA D Start: 01-08-2018 TRANSFUSE NONAUT RED BLOOD CELLS IN PERIPH VEIN, PERC PANCHITOGERSON TATETIZ Start: 01-05-2018 Antibody screen REFERRE D SELF Comment on above: Order Comment: Yes: Add to Previous draw if able Performed By: #### [id number] #### [facility] [address] [place] [address], [facility] Start: 12-29-2017 INSPECTION OF TRACHEOBRONCHIAL TREE, ENDO ALAN JENNIFER Start: 12-29-2017 RELEASE RIGHT LOWER LUNG LOBE, OPEN APPROACH ALAN JENNIFER Start: 12-29-2017 RELEASE RIGHT MIDDLE LUNG LOBE, OPEN APPROACH ALAN JENNIFER Start: 12-29-2017 RELEASE RIGHT UPPER LUNG LOBE, OPEN APPROACH ALAN JENNIFER Start: 12-27-2017 MEASURE OF ARTERIAL SATURATION, PERIPHERAL, PERC APPROACH SVITLANA Hill [place] Start: 12-26-2017 ULTRASONOGRAPHY OF R IGHT AND LEFT HEART, TRANSESOPHAGEAL SHAYY ROBBINS Start: 12-25-2017 Antibody screen REFERRE D SELF Comment on above: Performed By: #### [id number] #### [facility] [address] [place] [address], [facility] Start: 12-03-2016 History of coronary artery bypass grafting S/P CABG x 3 Asael Sheppard TROUBLE SHOOTER.OYSTER HARVESTER Work Phone: Start: 07-14-2004 Coronary artery bypass graft Joesph CARMONA Colonoscopy Joesph CARMONA Comment on above: 2016 2016 Coronary artery bypa ss grafts x 3 Joesph CARMONA Comment on above: 2004 2004 History of operative procedure on lumbar spinal structure Joesph CARMONA punctured lung /rib surgery 2018 Joesph CARMONA Plan of Treatment Date Care Activity Detail Author Start: 04-12-2025 DTaP/Tdap/Td vaccine (2 - Td or Tdap) DTaP/Tdap/Td vaccine (2 - Td or Tdap) [facility] Start: 04-12-2025 DTaP/Tdap/Td vaccine (2 - Td) DTaP/Tdap/Td vaccine (2 - Td) [place], [place] Start: 04-12-2025 Tetanus vaccination Tetanus (T d or Tdap) [facility] Start: 04-13-2023 Influenza vaccination [facility] ine [facility] Start: 03-14-2023 Influenza vaccination [facility] Start: 01-11-2023 Pneumococcal 65+ yea rs Vaccine (3 - PPSV23 or PCV20) Pneumococcal 65+ years Vaccine (3 - PPSV23 or PCV20) [facility] Start: 01-11-2023 Pneumococcal vaccination Pneumococcal Vaccine(s) (65+ yrs) (3 of 3 - PPSV23 or PCV20) [facility] Start: 07-14-2022 ADVANCE DIRECTIVE DISCUSSION ADVANCE DIRECTIVE DISCUSSION [facility] Start: 07-14-2022 DEPRESSION ASSESSMENT DEPRESSION ASS ESSMENT [facility] Start: 03-14-2022 Influenza vaccination INFLUENZ A (Season Ended) [facility] Start: 02-11-2022 Influenza vaccination Flu vaccine (# 1) [facility] Start: 2021 ADVANCE DIRECTIVE DISCUSSION ADVANCE DIRECTIVE DISCUSSION [facility] Start: 2021 Pneumococcal vaccination [facility] Start: 2021 PNEUMOCOCCAL: 65+ (1 - PCV) PNEUMOCOCCAL: 65+ (1 - PCV) [facility] Start: 10-20-2020 End: 10-20-2020 Telemedicine 10/20/2020 Telemedicine Pain Management Sadiq Whyte MD [address] [place] [address] [address] [place], [place] [id number] [facility] Start: 03-14-2020 Influenza vaccination Flu vaccine (# 1) [employer] Phone: Start: 08-06-2019 End: 08-06-2019 Office Visit 08/06/2019 Office Visit Pain Management Sadiq Whyte MD [address] [place] [address] [address] [place] [address] [phone] [employer] Start: 03-14-2019 Influenza vaccination Flu vaccine (# 1) [facility] [employer] [place] Start: 01-11-2019 Creatinine measurement Creatinine mo nitoring [employer] Phone: Start: 01-11-2019 Creatinine monitoring Creatinine mon itoring [facility] [place] Start: 01-11-2019 Potassium monitoring Potassium monit oring [place], [place] Start: 2016 RSV vaccine (optiona l 60+ years) RSV vaccine (optional 60+ years) [facility] Start: 12-19-2011 PROSTATE CANCER SCREENING DISCUSSION PROSTATE CANCER SCREENING DISCUSSION [facility] Start: 2006 Colon cancer screen colonoscopy Colon cancer screen colonoscopy [facility] [place] Start: 2006 Screening for malign ant neoplasm of colon Colon cancer screen colonoscopy [employer] Phone: Start: 2006 Shingles (RZV) Vacci ne (1 of 2) Shingles (RZV) Vaccine (1 of 2) [facility] Start: 2006 Shingles Vaccine (1 of 2) Shingles Vaccine (1 of 2) [facility] [employer] Start: 2006 SHINGRIX VACCINE (1 of 2) SHINGRIX VACCINE (1 of 2) [facility] Start: 2001 COLOGUARD (FIT-DNA) COLOGUARD (FIT-D NA) [facility] Start: [address] [facility] Start: 2001 COLORECTAL CANCER SCREENING COLORECTAL CANCER SCREENING [facility] Start: [address] COLONOGRAPHY [facility] Start: 2001 DIABETES SCREEN DIABETES SCREEN [facility] Start: 2001 FECAL OCCULT BLOOD FECAL OCCULT BLOO D [facility] Start: 2001 Screening for malign ant neoplasm of colon [facility] Start: 2001 SIGMOIDOSCOPY SIGMOIDOSCOPY [facility] Start: 12-19-1991 Lipid panel [facility] Start: 12-19-[address] SCREEN [facility] Start: 12-19-1975 Urine microalbumin profile DTAP,TDAP,TD (1 - Tdap) [facility] Start: 1974 HEPATITIS C SCREENING [facility]ITIS [facility] Start: 1974 Hepatitis C screening B ON [facility] Start: 1974 HIV SCREENING HIV SCREENING [facility] Start: 1974 Tetanus + diphtheria + acellular pertussis vaccine (product) Tdap [facility] Start: 1972 COVID-19 Vaccine (1) COVID-19 Vaccin e (1) [facility] [employer] Work Phone: Start: 12-19-1971 HIV screen HIV screen [place], [place] Start: 12-19-1971 HIV screening HIV screen [facility] Start: 1968 Adult depression screening assessment DEPRESSION SCREENING [facility] Start: 1968 Depression Screen Depression Screen [facility] Start: 1966 Lipid panel [facility] Start: 1966 Lipid screen Lipid screen [place], [place] Start: 1961 COVID-19 VACCINE (#1) COVID-19 VACCI NE (#1) [facility] Start: 1961 COVID-19 VACCINE (1) COVID-19 VACCIN E (1) [facility] Start: 06-19-1957 COVID-19 Vaccine (#1) COVID-19 Vacci ne (#1) [facility] Start: 1956 ABDOMINAL AORTIC ANEURYSM SCREENING ABDOMINAL AORTIC ANEURYSM SCREENING [facility] Start: 1956 Hepatitis C screen Hepatitis C scree n [facility] [place] Start: 1956 Hepatitis C screening Hepatitis C [facility] Work Phone: Start: 1956 Screening for malign ant neoplasm of colon Colonoscopy [facility] End: 05-02-2022 DRUG SCREEN, PAIN [facility] Work Phone: Comment on above: Once for 1 Occurrenc es starting 05/02/2022 until 05/02/2022 Patient referral [facility] Work Phone: End: 05-07-2019 Urine Drug Screen Urine Drug Screen Lab Routine Lumbar spondylosis 1 Occurrences starting 05/07/2019 until 05/07/2019 [place], [place] Comment on above: 1 Occurrences starti ng 05/07/2019 until 05/07/2019 Urine Drug Screen Urine Drug Scr een Lab Routine Lumbar spondylosis 05/07/2019 10:13 AM EDT [place], [place] Immunizations Immunization Date Immunization Notes [facility] Provider [facility] 08-18-2019 influenza, seasonal, injectable; Translations: [Fluzone Quadravalent] Joesph CARMONA [facility] Comment on above: Reason for Medicatio n: Other (see comment) Reason for Medicatio n: Other (see comment) 08-18-2019 influenza virus vaccine, unspecified formulation Et3 [facility] 01-11-2018 pneumococcal polysaccharide vaccine, 23 valent [facility] Comment on above: Result Comment: 2021: VIS DATE: 11/04/2014 11-08-2016 pneumococcal conjuga te vaccine, 13 valent [facility] 12-16-2015 pneumococcal polysaccharide vaccine, 23 valent Duglas CRUZ [facility] 04-12-2015 tetanus toxoid, reduced diphtheria toxoid, and acellular pertussis vaccine, adsorbed [facility] 04-02-2002 measles, mumps and rubella virus vaccine Duglas CRUZ [facility] NEGATED: Highlighted row has not occurred!04-19-2022 influenza, high dose seasonal, preservative-free Jamshid Foley [facility] NEGATED: Highlighted row has not occurred!04-11-2021 influenza virus vaccine, unspecified formulation Joesph CARMONA [facility] Payers Date Payer Category Payer Self-pay 2022 Private Health Insurance 2022 Private Health Insurance [id number] 2021 Medicaid [id number] 2016 Medicaid [facility] MEDICAID [facility] COMMUNITY PLAN MEDICAID [id number] 2016-Present [phone] [address] [place] [address] Medicaid [id number] 2015 Private Health Insurance [id number] 2015 Private Health Insurance [facility] COMM[facility] xxxxxxxxx 2015-Present [phone] [address] [place] [address] xxxxxxxxx [id number] 1956 Unknown [id number] 1956 Unknown [id number] 1956 Unknown [id number] 1956 Unknown [id number] 1956 Unknown [id number] 1956 Unknown [id number] 1956 Unknown [id number] 196 1955 Unknown [id number] Unknown [id number] Social History Date Type Detail Facility Start: 12-03-2016 End: 02-05-2019 Tobacco smoking status NHIS Current every day smoker [facility] Start: 02-05-2019 End: 06-20-2020 Cigarettes smoked current (pack per day) - Reported [employer] Start: 02-05-2019 End: 06-20-2020 Alcohol intake Yes [employer] Start: 01-10-2018 Alcohol Comment 12 tall boys daily. Hospitalized past 2 weeks [facility] [employer] [employer] [place] Start: 1955 Sex Assigned At Not on file [facility] [place] Start: 09-22-2020 End: 05-02-2022 Tobacco use and exposure Never used [employer] Phone: Start: 12-03-2016 End: 09-22-2020 Alcohol intake Current drinker of alcohol (finding) [employer] Phone: History of tobacco use Cigarette Smoker [facility] Start: 11-11-2021 End: 03-14-2023 Tobacco smoking status Heavy tobacco smoker (finding) [facility] Start: 01-24-2023 Tobacco smoking status NHIS Smoker (finding) [facility] Start: 1955 Sex Assigned At Male [facility] Tobacco smoking stat us ILIS Tobacco smoking consumption unknown [facility] National Score (1-100), lower number is lower risk Not on file [facility] Functional Status Date Assessment Result Facility 03-14-2023 Functional Status N/A [facility] 03-14-2023 Functional Status [facility] 08-14-2022 Functional Status N/A [facility] 04-19-2022 Functional Status No [facility] 04-18-2022 Functional Status [facility] 04-04-2022 Functional Status N/A [facility] 04-03-2022 Functional Status [facility] 01-18-2022 Functional Status N/A [facility] Clinical Notes 08-09-2021 to 08-18-2023 Telephone Encounter - Smita Gillis - 08/18/2023 10:49 AM ESTTelephone Encounter - Smita Gillis - 08/18/2023 10:49 AM ESTTelephone Encounter - Smita Gillis - 07/30/2023 3:31 PM EST Note Date & Type Note Facility 08-18-2023 Note 2nd attempt to reach patient via telephone. No answer, phone # disconnected. F/u letter. If patient calls, received VCDM Referral from patient's medical insurance. Patient to callback at [phone]. Smita Gillis MPH [facility] [employer] [facility] 08-18-2023 Telephone encounter Note 2nd attempt to reach patient via telephone. No answer, phone # disconnected. F/u letter. If patient calls, received VCDM Referral from patient's medical insurance. Patient to callback at [phone]. Smita Gillis MPH [facility] [employer] [facility] 08-18-2023 Miscellaneous Notes 2nd attempt to reach patient via telephone. No answer, phone # disconnected. F/u letter. If patient calls, received VCDM Referral from patient's medical insurance. Patient to callback at [phone]. Smita Gillis MPH [facility] [employer] 1st attempt to reach patient via telephone. No answer, mailed letter. phone # has been disconnected Received VCDM Referral from patient's medical insurance. Patient to callback at [phone]. Smita Gillis MPH [facility] [employer] documented in this encounter [facility] 07-30-2023 Note 1st attempt to reach patient via telephone. No answer, mailed letter. phone # has been disconnected Received VCDM Referral from patient's medical insurance. Patient to callback at [phone]. Smita Gillis MPH [facility] [employer] [facility] 07-30-2023 Telephone encounter Note 1st attempt to reach patient via telephone. No answer, mailed letter. phone # has been disconnected Received VCDM Referral from patient's medical insurance. Patient to callback at [phone]. Smita Gillis MPH [facility] [employer] [facility] 07-30-2023 Miscellaneous Notes 1st attempt to reach patient via telephone. No answer, mailed letter. phone # has been disconnected Received VCDM Referral from patient's medical insurance. Patient to callback at [phone]. Smita Gillis MPH [facility] [employer] documented in this encounter [facility] 03-18-2023 Note HNO ID: [id number] Author: Mallika De La Rosa Service: ? Author Type: Physician Type: Progress Notes Filed: 03/19/2023 6:39 PM Note Text: [facility] NOTE NAME: CAROLINA LEVY NO.: [id number] DATE OF SERVICE: 03/18/2023 [facility] DATE OF : 1955 New patient history and physical HISTORY OF PRESENT ILLNESS: The patient is a 67-year-old male who is admitted for a 5-day respite stay, which may turn into a long-term care. He is with the [facility]. He had just presented to the hospital after a recurrent fall with severe generalized weakness. He was at [facility], where he was found to be in acute alcohol intoxication with underlying chronic alcohol abuse. Also history of chronic hypernatremia, hypertension, hyperlipidemia, CAD, chronic diastolic heart failure, rheumatoid arthritis, chronic respiratory failure with hypoxia, on continuous home oxygen therapy, chronic obstructive pulmonary disease with smoking history, and chronic back pain, remote CABG, previous lumbar spine surgery, and noncompliance. He was given IV hydration and placed under the CIWA Protocol. Laboratory testing did reveal acute on chronic hyponatremia. Once again, he was given IV fluids. His condition was stabilized and he is now admitted to our facility with [facility] for a 5-day respite, which once again may turn into long-term care. REVIEW OF SYSTEMS: He is currently resting in bed. He is alert and responsive after being in a deep sleep. He is somewhat a vague and poor historian. He currently denies any pain. He is on supplemental oxygen and denies being short of breath. He has had no recent chest pain. He does have underlying CAD with remote triple vessel bypass surgery with diastolic congestive heart failure. Also, underlying chronic obstructive pulmonary disease with ongoing smoking history. He is on continuous home oxygen therapy for chronic hypoxia. His appetite has been fair. No bleeding ulcers, hepatitis, or melena. No prior strokes or seizures. He is not a diabetic. He does have a history of abdominal aortic aneurysm. FAMILY HISTORY: Significant for hypertension. SOCIAL/FUNCTIONAL HISTORY: He does smoke and abuse alcohol. He lives at home with family. MEDICATIONS: Albuterol inhaler p.r.n., aspirin 81 mg daily, Ativan p.r.n., Bumex 2 mg daily, Coreg 25 mg b.i.d., cholecalciferol 1000 units daily, fentanyl patch 25 mcg q.72 hours, ferrous sulfate 325 mg daily, tamsulosin 0.4 mg daily, fluticasone nasal spray daily, fluticasone/salmeterol inhaler one puff b.i.d., folic acid 1 mg daily, hydroxychloroquine 200 mg q.12 hours, albuterol/Atrovent aerosol treatments 4 times a day, isosorbide/mononitrate ER 24/30 mg daily, leflunomide 10 mg daily, lisinopril 10 mg daily, lorazepam p.r.n., multivitamin daily, nicotine patch 21 mg daily, oxybutynin 5 mg b.i.d., oxycodone p.r.n., potassium chloride ER 20 mEq daily, pravastatin 40 mg daily, Symbicort inhaler two puffs b.i.d., thiamine 100 mg daily, trazodone 50 mg at bedtime, p.r.n. Tylenol. ALLERGIES: CLONIDINE. EXAMINATION: Afebrile, his vital signs are stable. He is in no distress. He appears chronically ill. HEENT: Extraocular movements intact, sclerae nonicteric. Ears intact. Lungs with scattered rhonchi with decreased breath sounds at the bases. Heart is regular. Abdomen is soft, nontender. Extremities: No edema. No ischemia or cyanosis. He does have generalized weakness. IMPRESSION: 1. Acute alcohol intoxication with history of alcohol abuse - we will continue to monitor closely for any signs of withdrawal. He was placed under the CIWA protocol. 2. Acute on chronic hyponatremia - we will monitor his fluid intake. 3. Chronic diastolic heart failure with underlying coronary artery disease with remote triple vessel bypass surgery -continue current diuretic therapy. He appears to be compensated. 4. Chronic hypoxic respiratory failure with underlying chronic obstructive pulmonary disease with ongoing smoking history - continue current respiratory treatments and supplemental oxygen. He currently is receiving a nicotine patch to help with the smoking cessation. His overall condition and prognosis is extremely poor. He currently is in the [facility] hospice program. He is here for a short 5-day respite, which will most likely turn into a long-term care. DICTATED BY: MD PATITO Hancock/Norris JOB# [id number] cc:[facility] 03-18-2023 History of Present illness Narrative Images from the original note were not included. EMERGENCY TRIAGE, TREAT AND TRANSPORT (ET3) DOCUMENTATION OF TELEHEALTH VISIT Date / Time: 03/13/2023 / 2330 Name: Melba Levy : 1955 SSN: [id number] EMS Agency: [facility] [x] Verbal consent obtained [] Implied consent - patient with potential emergency medical condition requiring assessment of capacity to refuse treatment and/or transport VITAL SIGNS: see flowsheet documentation Reason for Telehealth Visit: Chief Complaint Patient presents with General weakness/tiredness History of Present Illness: 67 yo male called ems after a fall. No LOC. No back pain. No AC. Pt declines transport. Reports progression of generalized weakness and deconditioning. Working w/ his doc/home health services and reportedly getting placed in skilled facility this week. Pt currently without complaint. Does not want transported. Additional pertinent PMHx, SocHx, FamHx: PMH acute alcohol intoxication Chronic Obstructive Pulmonary Disease (COPD) Coronary Artery Disease Hypertension Review of Systems: Denies the following: CP, abd pain, NVD, SOB Exam: General: Awake, no distress ENT: normocephalic, atraumatic Pulmonary: No respiratory distress Cardiovascular: Well perfused Neurologic: Oriented to person, place, time and events. Moving all extremities equally. Psychiatric: Appropriate. Good insight and judgement. Medical Decision Makin yo male reports non injury fall. Has medical decision making capacity and declines EMS transport. Pt has current plan for admission to skilled facility this week, working w/ his care team. Pt wishes to stay home w/ current level of support until he can get placed into skilled facility as planned this week. Call EMS back precautions reviewed. No questions. Disposition Supported by Telehealth Assessment: ET3 transport decisions: Refused transport EMS Disposition Reported: Same ET3 Encounter Completed by: Miguel Molina DO documented in this encounter [facility] 03-18-2023 History of Present illness Narrative [facility] NOTE NAME: EDGARD LEVYAMBROSE NO.: [id number] DATE OF SERVICE: 03/18/2023 [facility] DATE OF : 1955 New patient history and physical HISTORY OF PRESENT ILLNESS: The patient is a 67-year-old male who is admitted for a 5-day respite stay, which may turn into a long-term care. He is with the [facility]. He had just presented to the hospital after a recurrent fall with severe generalized weakness. He was at [facility], where he was found to be in acute alcohol intoxication with underlying chronic alcohol abuse. Also history of chronic hypernatremia, hypertension, hyperlipidemia, CAD, chronic diastolic heart failure, rheumatoid arthritis, chronic respiratory failure with hypoxia, on continuous home oxygen therapy, chronic obstructive pulmonary disease with smoking history, and chronic back pain, remote CABG, previous lumbar spine surgery, and noncompliance. He was given IV hydration and placed under the [facility] Protocol. Laboratory testing did reveal acute on chronic hyponatremia. Once again, he was given IV fluids. His condition was stabilized and he is now admitted to our facility with [facility] for a 5-day respite, which once again may turn into long-term care. REVIEW OF SYSTEMS: He is currently resting in bed. He is alert and responsive after being in a deep sleep. He is somewhat a vague and poor historian. He currently denies any pain. He is on supplemental oxygen and denies being short of breath. He has had no recent chest pain. He does have underlying CAD with remote triple vessel bypass surgery with diastolic congestive heart failure. Also, underlying chronic obstructive pulmonary disease with ongoing smoking history. He is on continuous home oxygen therapy for chronic hypoxia. His appetite has been fair. No bleeding ulcers, hepatitis, or melena. No prior strokes or seizures. He is not a diabetic. He does have a history of abdominal aortic aneurysm. FAMILY HISTORY: Significant for hypertension. SOCIAL/FUNCTIONAL HISTORY: He does smoke and abuse alcohol. He lives at home with family. MEDICATIONS: Albuterol inhaler p.r.n., aspirin 81 mg daily, Ativan p.r.n., Bumex 2 mg daily, Coreg 25 mg b.i.d., cholecalciferol 1000 units daily, fentanyl patch 25 mcg q.72 hours, ferrous sulfate 325 mg daily, tamsulosin 0.4 mg daily, fluticasone nasal spray daily, fluticasone/salmeterol inhaler one puff b.i.d., folic acid 1 mg daily, hydroxychloroquine 200 mg q.12 hours, albuterol/Atrovent aerosol treatments 4 times a day, isosorbide/mononitrate ER 24/30 mg daily, leflunomide 10 mg daily, lisinopril 10 mg daily, lorazepam p.r.n., multivitamin daily, nicotine patch 21 mg daily, oxybutynin 5 mg b.i.d., oxycodone p.r.n., potassium chloride ER 20 mEq daily, pravastatin 40 mg daily, Symbicort inhaler two puffs b.i.d., thiamine 100 mg daily, trazodone 50 mg at bedtime, p.r.n. Tylenol. ALLERGIES: CLONIDINE. EXAMINATION: Afebrile, his vital signs are stable. He is in no distress. He appears chronically ill. HEENT: Extraocular movements intact, sclerae nonicteric. Ears intact. Lungs with scattered rhonchi with decreased breath sounds at the bases. Heart is regular. Abdomen is soft, nontender. Extremities: No edema. No ischemia or cyanosis. He does have generalized weakness. IMPRESSION: 1. Acute alcohol intoxication with history of alcohol abuse - we will continue to monitor closely for any signs of withdrawal. He was placed under the CIWA protocol. 2. Acute on chronic hyponatremia - we will monitor his fluid intake. 3. Chronic diastolic heart failure with underlying coronary artery disease with remote triple vessel bypass surgery -continue current diuretic therapy. He appears to be compensated. 4. Chronic hypoxic respiratory failure with underlying chronic obstructive pulmonary disease with ongoing smoking history - continue current respiratory treatments and supplemental oxygen. He currently is receiving a nicotine patch to help with the smoking cessation. His overall condition and prognosis is extremely poor. He currently is in the [facility] hospice program. He is here for a short 5-day respite, which will most likely turn into a long-term care. DICTATED BY: MD PATITO Hancock/Norris JOB# [id number] cc:[facility] documented in this encounter [facility] 03-16-2023 Note Admission and Discha rge Information Admitting Physician - SANJUANITA STRINGER, Alvaroan Consulting Physician - Jeremy Levy MD Admitting Diagnoses: Chronic pain, 03/15/2023 Discharge Order Date Discharge Patient - Ordered -- 03/16/23 15:54:00 EDT, discharge to [facility] Discharge Diagnoses 1. General weakness, 03/14/2023 2. Acute alcohol intoxication, 03/14/2023 3. Chronic hyponatremia, 03/14/2023 4. Hypertension, 03/14/2023 5. Hyperlipidemia, 03/14/2023 6. Coronary artery disease, 03/14/2023 7. Chronic diastolic heart failure, 03/14/2023 8. Rheumatoid arthritis, 03/14/2023 9. Chronic respiratory failure with hypoxia, 03/14/2023 10. COPD without exacerbation, 03/14/2023 11. No contraindication to deep vein thrombosis (DVT) prophylaxis, 03/14/2023 Chronic pain, 03/15/2023 Multiple falls, 03/14/2023 Rib contusion, 03/15/2023 Procedure History CABG - Coronary artery bypass graft (07/14/2004), Colonoscopy, History of lumbar spine surgery, punctured lung /rib surgery 2018, Triple coronary bypass. Hospital Course Pt is a 67 M admitted with general weakness, frequent falls at home. Pt was intoxicated on admission, history of chronic alcohol abuse. Pt was hydrated with IVF. Pt with acute on chronic hyponatremia secondary to a combination of hypovolemic and chronic alcohol abuse. Na increased with IVF, followed by nephrology. Pt worked with PT/OT, unable to care for self, unable to care for him. Pt is current with [facility]. pt is going to [facility] for respit care. Pt discharged in stable, condition to follow up prn with PCP. Services Consulted Consult to General Surgery - Ordered -- 03/14/23 4:09:00 EDT, Stat, Trauma, Consult and Co-manage Consult to Nephrology - Ordered -- 03/14/23 8:48:00 EDT, hyponatremia, Consult and Co-manage Consult to Volleyball Coach (Volleyball Coach Consult) - Ordered -- 03/14/23 10:44:49 EDT Physical Exam Vitals & Measurements T: 36.7 ?C(Axillary) TMIN: 36.4 ?C(Axillary) TMAX: 36.7 ?C(Oral) HR: 70(Monitored) RR: 20 BP: 131/80 SpO2: 96% WT: 77.3 kg General: alert, no acute distress ENMT: oral mucosa moist, no pharyngeal erythema or exudate Cardiovascular: regular rate and rhythm, normal peripheral perfusion Respiratory: Lungs CTA, respirations non labored Abdomen: soft, NTND, +BS Skin: warm, dry, intact Extremities: no deformity, no trauma Neurological: LOC appropriate for age, CN II-XII intact, motor strength equal & normal bilaterally, sensation equal & normal bilaterally, speech normal Laboratory Results Alcohol Level (03/14/2023) Ethanol Lvl - 342 mg/dL Automated Diff (03/15/2023) Neutro Auto - 69.1 % Lymph Auto - 13.8 % Gilpin Auto - 10.9 % Eos Auto - 4.9 % Basophil Auto - 1.3 % Neutro Absolute - 3.1 E9/L Lymph Absolute - 0.6 E9/L [place] Absolute - 0.5 E9/L Eos Absolute - 0.2 E9/L Basophil Absolute - 0.1 E9/L BMP (03/15/2023) Glucose Lvl - 89 mg/dL BUN - 10 mg/dL Creatinine - 0.9 mg/dL BUN/Creat Ratio - 11 Sodium Lvl - 134 mmol/L Potassium Lvl - 4.4 mmol/L Chloride - 98 mmol/L CO2 - 31 mmol/L AGAP - 9 mEq/L Calcium Lvl - 9.0 mg/dL CBC w/ Auto Diff (03/15/2023) WBC - 4.5 E9/L RBC - 3.7 E12/L Hgb - 12.1 gm/dL Hct - 36.1 % MCV - 98.6 fL MCH - 33.0 pg MCHC - 33.5 gm/dL RDW - 14.2 % Platelet - 178.0 E9/L MPV - 7.4 fL COVID Rapid Antigen ([facility]) (03/14/2023) Rapid COVID Ag - Not Detected Rapid COV Int NEG Ctl - Pass Rapid COV Int POS Ctl - Pass Drug Screen Urine (03/14/2023) U Amph Scr - Negative U Jesica Scr - Negative U Benzodia Scr - Negative U Cannab Scr - Negative U Cocaine Scr - Negative U Opiate Scr - NEG1 U PCP Scr - Negative eGFR (03/15/2023) eGFR - 94 mL/min/1.73 m2 Hepatic Function Panel (03/14/2023) Alk Phos - 63 Int._Unit/L ALT - 16 Int._Unit/L AST - 25 Int._Unit/L Total Protein - 7.1 gm/dL Albumin Lvl - 3.1 gm/dL Globulin - 4.0 gm/dL A/G Ratio - 0.8 Bili Total - 0.5 mg/dL Bili Direct - 0.2 mg/dL Bili Indirect - 0.3 mg/dL Magnesium Level (03/15/2023) Magnesium - 1.6 mg/dL PT & PTT (03/14/2023) PT - 11.7 second(s) INR - 1.0 PTT - 33.0 second(s) Sodium Level (03/14/2023) Sodium Lvl - 128 mmol/L Troponin 0 Hr. (03/14/2023) Troponin - 6.70 pg/mL Troponin 3 Hr. (03/14/2023) Troponin - 7.50 pg/mL Troponin 6 Hr. (03/14/2023) Troponin - 8.20 pg/mL Troponin 9 Hr. (03/14/2023) Troponin - 7.30 pg/mL Tests Performed Alcohol Level Automated Diff BMP CBC w/ Auto Diff COVID [place] Antigen [place] Drug Screen Urine eGFR Hepatic Function Panel Magnesium Level PT & PTT Sodium Level Troponin 0 Hr. Troponin 3 Hr. Troponin [address] Hr[address] Abdomen/Pelvis w/o Contrast CT C-Spine w/o Contrast CT Chest w/o Contrast CT Head or Brain w/o Contrast XR Chest Single View XR Pelvis 1 or 2 Views Discharge Plan Discharge Disposition Discharge To, Anticipated II - Intermediate Care/ECF Transported by, Anticipated - [facility] (more content not included)... [facility] Comment on above: Result Comment: Elec tronically Signed By: Dora GANN MD\.br\Date and Time Signed: 03/16/23 17:58 EDT 03-16-2023 Evaluation + Plan note Extrac myles from: Title:Discharge Note Author:Dora GANN MD Date: 03/16/23 Discharge To, Anticipated II - Intermediate Care/ECF Transported by, Anticipated - Wheelchair van Discharge Diet(s): Regular (03/15/23 09:24:00) Prescriptions albuterol HFA 90 mcg/inh MDI, 2 puff(s), Inhalation, q4hr, PRN, 5 refills aspirin 81 mg Oral EC Tab, 81 mg= 1 tab(s), Oral, Daily carvedilol 25 mg Tab, 25 mg= 1 tab(s), Oral, BID, 5 refills cholecalciferol 1000 intl units (25 mcg) oral tablet, 25 mcg= 1 tab(s), Oral, Daily DuoNeb 2.5 mg-0.5 mg/3 mL Soln-Inh, 3 mL, Inhalation, QID fentaNYL 25 mcg/hr Transderm ER Film, 1 patch(es), Topical, q72hr fluticasone 0.05 mg/inh Nasal Muse, 1 spray(s), Nasal, BID, 11 refills folic acid 1 mg Tab, 1 mg= 1 tab(s), Oral, Daily isosorbide mononitrate 30 mg ER Tab, 30 mg= 1 tab(s), Oral, Daily LORazepam 1 mg Tab, 1 mg= 1 tab(s), Oral, QID, PRN Multi Vitamins oral tablet, 1 tab(s), Oral, Daily nitroglycerin 0.4 mg sublingual Tab, 0.4 mg= 1 tab(s), SubLingual, q5min, PRN oxybutynin 5 mg Tab, 5 mg= 1 tab(s), Oral, BID, 5 refills oxyCODONE 5 mg Tab, 5 mg= 1 tab(s), Oral, q6hr, PRN potassium chloride 20 mEq ER Tab, 20 mEq= 1 tab(s), Oral, Daily pravastatin 40 mg Tab, 40 mg= 1 tab(s), Oral, Daily Symbicort 160/4.5 inhalation aerosol with adapter, 2 puff(s), Inhalation, BID, 11 refills tamsulosin 0.4 mg Cap, 0.4 mg= 1 cap(s), Oral, Bedtime thiamine 100 mg Tab, 100 mg= 1 tab(s), Oral, Daily Home bumetanide 2 mg Tab, 2 mg= 1 tab(s), Oral, Daily ferrous sulfate 325 mg oral enteric coated tablet, 325 mg= 1 tab(s), Oral, Daily hydroxychloroquine 200 mg Tab, 200 mg= 1 tab(s), Oral, q12hr leflunomide 10 mg oral tablet, 10 mg= 1 tab(s), Oral, Daily lisinopril 10 mg Tab, 10 mg= 1 tab(s), Oral, Daily nicotine 21 mg/24 hr Transderm ER Film, 1 patch(es), TransDermal, Daily, Not taking traZODONE 50 mg Tab, 50 mg= 1 tab(s), Oral, Once a day (at bedtime) With When Contact Information Loe CAMERON Within 5 to [address] [facility], [address] [place] [address] Business (1) Additional Instructions: Extracted from: Title:APSO Note Author:Dora GANN MD Date: 3 1. General weakness (R53.1: Weakness) - frequent falls at home, likely secondary to chronic alcohol abuse, no signs of infection - treat as below - PT/OT evaluation ordered - pt willing to go to snf Ordered: 2. Acute alcohol intoxication (F10.929: Alcohol use, unspecified with intoxication, unspecified) - no longer intoxicated, stop IVF - continue PO thiamine and folate - CIWA protcol 3. Chronic hyponatremia (E87.1: Hypo-osmolality and hyponatremia) - acute on chronic, may be secondary to a combination of hypovolemic and chronic alcohol abuse - Na increased, stop IVF - reviewed and agree with nephrology recs 4. Hypertension (I10: Essential (primary) hypertension) - stable - continue PO coreg and imdur 5. Hyperlipidemia (E78.5: Hyperlipidemia, unspecified) - stable - continue PO pravastatin 6. Coronary artery disease (I25.10: Atherosclerotic heart disease of [place] coronary artery without angina pectoris) - stable - continue PO ASA, coreg, imdur, statin 7. Chronic diastolic heart failure (I50.32: Chronic diastolic (congestive) heart failure) - stable, not acutely decompensated - hold bumex, stopped IVF as above, restart bumex tomorrow - continue PO coreg, imdur 8. Rheumatoid arthritis (M06.9: Rheumatoid arthritis, unspecified) - stable - continue PO plaquenil and leflunamide 9. Chronic respiratory failure with hypoxia (J96.11: Chronic respiratory failure with hypoxia) - stable on baseline 3L NC 10. COPD without exacerbation (J44.9: Chronic obstructive pulmonary disease, unspecified) - stable, on baseline O2 needs - ordered duonebs INH - continue albuterol INH prn 11. No contraindication to deep vein thrombosis (DVT) prophylaxis (Z78.9: Other specified health status) - ordered SCDs, continue heparin subcutaneous bid Orders: Communication Order Physical Therapy Evaluate Patient, Develop a Plan of Care and Implement Plan Referral to Resource Center Extracted from: Title:APSO Note Author:Dora GANN MD Date: 3 1. General weakness (R53.1: Weakness) - frequent falls at home, likely secondary to chronic alcohol abuse, no signs of infection - treat as below - PT/OT evaluation ordered - pt willing to go to snf Ordered: 2. Acute alcohol intoxication (F10.929: Alcohol use, unspecified with intoxication, unspecified) - no longer intoxicated, stop IVF - continue PO thiamine and folate - CIWA protcol 3. Chronic hyponatremia (E87.1: Hypo-osmolality and hyponatremia) - acute on chronic, may be secondary to a combination of hypovolemic and chronic alcohol abuse - Na increased, stop IVF - reviewed and agree with nephrology recs 4. Hypertension (I10: Essential (primary) hypertension) - stable - continue PO coreg and imdur 5. Hyperlipidemia (E78.5: Hyperlipidemia, unspecified) - stable - continue PO pravastatin 6. Coronary artery disease (I25.10: Atherosclerotic heart disease of [place] coronary artery without angina pectoris) - stable - continue PO ASA, coreg, imdur, statin 7. Chronic diastolic heart failure (I50.32: Chronic diastolic (congestive) heart failure) - stable, not acutely decompensated - hold bumex, stopped IVF as above, restart bumex tomorrow - continue PO coreg, imdur 8. Rheumatoid arthritis (M06.9: Rheumatoid arthritis, unspecified) - stable - continue PO plaquenil and leflunamide 9. Chronic respiratory failure with hypoxia (J96.11: Chronic respiratory failure with hypoxia) - stable on baseline 3L NC 10. COPD without exacerbation (J44.9: Chronic obstructive pulmonary disease, unspecified) - stable, on baseline O2 needs - ordered duonebs INH - continue albuterol INH prn 11. No contraindication to deep vein thrombosis (DVT) prophylaxis (Z78.9: Other specified health status) - ordered SCDs, continue heparin subcutaneous bid Orders: acetaminophen, 650 mg = 2 tab(s), Tab, Oral, q6hr PRN Pain, Routine, Start date 03/14/23 9:07:00 EDT, 03/14/23 9:07:00 EDT Al hydroxide/Mg hydroxide/simethicone, 30 mL, Susp-Oral, Oral, q6hr PRN Indigestion, Routine, Start date 03/14/23 9:07:00 EDT albuterol, 2.5 mg, 3 mL, Soln-Inh, Inhalation, q2hr PRN Shortness of breath or wheezing, Routine, Start date 03/15/23 7:50:00 EDT albuterol-ipratropium, 3 mL, Soln-Inh, Inhalation, QID, Routine, Start date 03/15/23 8:00:00 EDT diazepam, 5 mg = 1 mL, Injection, IV Push, q6hr PRN Seizure, Routine, Start date 03/14/23 10:43:00 EDT, 03/14/23 10:43:00 EDT folic acid, 1 mg = 1 tab(s), Tab, Oral, Once, Stop date 03/14/23 13:00:00 EDT, Routine, Start date 03/14/23 13:00:00 EDT folic acid, 1 mg = 1 tab(s), Tab, Oral, Daily, Routine, Start date 03/15/23 9:00:00 EDT lorazepam, 1 mg = 0.5 mL, Injection, IV Push, q1hr PRN Anxiety, Routine, Start date 03/14/23 12:35:00 EDT, 03/14/23 12:35:00 EDT magnesium hydroxide, 30 mL, Susp-Oral, Oral, q6hr PRN Constipation, Routine, Start date 03/14/23 9:07:00 EDT magnesium sulfate + Generic Diluent 50 mL, 2 gram = 50 mL, Soln-IV, IV Piggyback, Once, Stop date 03/14/23 10:00:00 EDT, Routine, Start date 03/14/23 10:00:00 EDT, 25 mL/hr, Infuse over 2 hour(s) ondansetron, 4 mg = 2 mL, Injection, IV Push, q6hr PRN Nausea, Routine, Start date 03/14/23 9:07:00 EDT, 03/14/23 9:07:00 EDT potassium chloride, 40 mEq = 2 tab(s), Tab-ER, Oral, Once, Stop date 03/14/23 10:00:00 EDT, Routine, Start date 03/14/23 10:00:00 EDT, 03/14/23 9:08:00 EDT thiamine, 100 mg = 1 tab(s), Tab, Oral, Daily, Routine, Start date 03/15/23 9:00:00 EDT thiamine, 100 mg = 1 tab(s), Tab, Oral, Once, Stop date 03/14/23 13:00:00 EDT, Routine, Start date 03/14/23 13:00:00 EDT Ambulate with Assistance Automated Diff Basic Metabolic Panel Below the Knee Intermittent Pneumatic Compression Device Cardiac Diet Cardiac Monitoring CBC w/ Auto Diff Clinical Donie Withdrawal Assessment Clinical Donie Withdrawal Assessment Clinical Donie Withdrawal Assessment Clinical Donie Withdrawal Assessment Clinical Donie Withdrawal Assessment Communication Order Physician to Nursing Consult to Nephrology eGFR Evaluate Need For Continued Telemetry Incentive Spirometry Intake and Output Magnesium Level Notify Provider Vital Signs Notify Provider Vital Signs Occupational Therapy Evaluate Patient, Develop a Plan of Care and Implement Plan Oxygen Protocol Physical Therapy Evaluate Patient, Develop a Plan of Care and Implement Plan Place in Status Pulse Oximetry Referral to Resource Center Vital Signs Vital Signs Vital Signs Weight Extracted from: Title:Admission H & P Author:Dora GANN MD Date :03/14/23 1. General weakness (R53.1: Weakness) - frequent falls at home, likely secondary to chronic alcohol abuse, no signs of infection - treat as below - PT/OT evaluation ordered 2. Acute alcohol intoxication (F10.929: Alcohol use, unspecified with intoxication, unspecified) - IVF hydration - start PO thiamine and folate - CIWA protcol 3. Chronic hyponatremia (E87.1: Hypo-osmolality and hyponatremia) - acute on chronic, may be secondary to a combination of hypovolemic and chronic alcohol abuse - start IVF hydration with NS, monitor Na - consult nephrology 4. Hypertension (I10: Essential (primary) hypertension) - stable - continue PO coreg and imdur 5. Hyperlipidemia (E78.5: Hyperlipidemia, unspecified) - stable - continue PO pravastatin 6. Coronary artery disease (I25.10: Atherosclerotic heart disease of [place] coronary artery without angina pectoris) - stable - continue PO ASA, coreg, imdur, statin 7. Chronic diastolic heart failure (I50.32: Chronic diastolic (congestive) heart failure) - stable, not acutely decompensated - hold bumex, hydrating with IVF as above - continue PO coreg, imdur 8. Rheumatoid arthritis (M06.9: Rheumatoid arthritis, unspecified) - stable - continue PO plaquenil and leflunamide 9. Chronic respiratory failure with hypoxia (J96.11: Chronic respiratory failure with hypoxia) - stable on baseline 3L NC 10. COPD without exacerbation (J44.9: Chronic obstructive pulmonary disease, unspecified) - stable, on baseline O2 needs - albuterol prn 11. No contraindication to deep vein thrombosis (DVT) prophylaxis (Z78.9: Other specified health status) - ordered SCDs, start heparin subcutaneous bid pt will be admitted for observation possible discharge in next 24 hours Orders: acetaminophen, 650 mg = 2 tab(s), Tab, Oral, q6hr PRN Pain, Routine, Start date 03/14/23 9:07:00 EDT, 03/14/23 9:07:00 EDT Al hydroxide/Mg hydroxide/simethicone, 30 mL, Susp-Oral, Oral, q6hr PRN Indigestion, Routine, Start date 03/14/23 9:07:00 EDT diazepam, 5 mg = 1 mL, Injection, IV Push, q6hr PRN Seizure, Routine, Start date 03/14/23 10:43:00 EDT, 03/14/23 10:43:00 EDT folic acid, 1 mg = 1 tab(s), Tab, Oral, Once, Stop date 03/14/23 13:00:00 EDT, Routine, Start date 03/14/23 13:00:00 EDT folic acid, 1 mg = 1 tab(s), Tab, Oral, Daily, Routine, Start date 03/15/23 9:00:00 EDT lorazepam, 1 mg = 0.5 mL, Injection, IV Push, q1hr PRN Anxiety, Routine, Start date 03/14/23 12:35:00 EDT, 03/14/23 12:35:00 EDT magnesium hydroxide, 30 mL, Susp-Oral, Oral, q6hr PRN Constipation, Routine, Start date 03/14/23 9:07:00 EDT magnesium sulfate + Generic Diluent 50 mL, 2 gram = 50 mL, Soln-IV, IV Piggyback, Once, Stop date 03/14/23 10:00:00 EDT, Routine, Start date 03/14/23 10:00:00 EDT, 25 mL/hr, Infuse over 2 hour(s) ondansetron, 4 mg = 2 mL, Injection, IV Push, q6hr PRN Nausea, Routine, Start date 03/14/23 9:07:00 EDT, 03/14/23 9:07:00 EDT potassium chloride, 40 mEq = 2 tab(s), Tab-ER, Oral, Once, Stop date 03/14/23 10:00:00 EDT, Routine, Start date 03/14/23 10:00:00 EDT, 03/14/23 9:08:00 EDT Sodium Chloride 0.9% intravenous solution 1,000 mL, 1,000 mL, IV, 75 mL/hr, Routine, Start date 03/14/23 9:07:00 EDT, 13.3 hour(s), Total volume (mL): 1,000, 75 kg, 1.96, m2 thiamine, 100 mg = 1 tab(s), Tab, Oral, Daily, Routine, Start date 03/15/23 9:00:00 EDT thiamine, 100 mg = 1 tab(s), Tab, Oral, Once, Stop date 03/14/23 13:00:00 EDT, Routine, Start date 03/14/23 13:00:00 EDT Ambulate with Assistance Basic Metabolic Panel Below the Knee Intermittent Pneumatic Compression Device Cardiac Diet Cardiac Monitoring CBC w/ Auto Diff Clinical Donie Withdrawal Assessment Clinical Donie Withdrawal Assessment Clinical Donie Withdrawal Assessment Clinical Donie Withdrawal Assessment Clinical Donie Withdrawal Assessment Communication Order Physician to Nursing Communication Order Physician to Nursing Consult to Nephrology Evaluate Need For Continued Telemetry Intake and Output Magnesium Level Notify Provider Vital Signs Notify Provider Vital Signs Occupational Therapy Evaluate Patient, Develop a Plan of Care and Implement Plan Oxygen Protocol Physical Therapy Evaluate Patient, Develop a Plan of Care and Implement Plan Place in Status Pulse Oximetry Referral to Resource Center Vital Signs Vital Signs Vital Signs Vital Signs Vital Signs Weight Extracted from: Title:HypoNa Author:Jeremy Levy MD Date:03/14 Impression and Plan 1. Acute on chronic hyponatremia with baseline sodium 130: Acute and chronic components from alcohol use and low solute intake. Sodium jermain at 125 and is increasing appropriately to 128 with IV fluids. Indeed he presented to the hospital with alcohol intoxication. Agree with IV fluids as you are. May check sodiums daily. He has been counseled at length in the outpatient setting to avoid alcohol and smoking and to fortify solute diet. Unfortunately he has been noncompliant with both. No renal follow-up on discharge given repeat noncompliant with the recommendations. 2. Alcohol intoxication: Management per hospitalist 3. Fall: In the setting of alcohol use. Further management per hospitalist Thank you for involving us in the consultation of this patient. Please feel free to call with any questions. No in person nephrology coverage until March 18 (March 17 is a Day weekend). Extracted from: Title:ED Addendum Author:Alvaro Zapata M.D. Date:03/14/23 1. Sinus bradycardia (R00.1: Bradycardia, unspecified) 2. Hyponatremia (E87.1: Hypo-osmolality and hyponatremia) 3. Acute alcohol intoxication (F10.929: Alcohol use, unspecified with intoxication, unspecified) 4. Encounter for examination following a fall (Z04.3: Encounter for examination and observation following other accident) 5. Multiple falls (R29.6: Repeated falls) 6. Hypomagnesemia (E83.42: Hypomagnesemia) Orders: magnesium sulfate + Generic Diluent 50 mL, 2 gram = 50 mL, Soln-IV, IV Piggyback, Once, Stop date 03/14/23 8:45:00 EDT, STAT, Start date 03/14/23 8:45:00 EDT, 25 mL/hr, Infuse over 2 hour(s) Sodium Chloride 0.9% intravenous solution, 1,000 mL, Soln-IV, IV, Once, Stop date 03/14/23 7:30:00 EDT, STAT, Start date 03/14/23 7:30:00 EDT, Infuse over 61, minute(s) ED Physician consult Hospitalist for continued care [place] Future Scheduled Tests Laboratory* Hepatic Function Panel 04/07/22 [facility]09-02-2023 NoteOT evaluation completed. [facility] Six CLicks Daily Activity score is 19/24. Pt. requires Roberto to CGA with ADLs. OT to follow daily to address strength, balance with ADLS and ADL transfers. Pt. will benefit from skilled rehab upon D/C.[facility]09-01-2023 Note Basic Information Accompanied by: No Accompaniment Source of History: Self Present at Bedside: Other Referral Source: ED History Limitation: None Chief Complaint Fall History of Present Illness Pt is a 67 M PMH HTN, HLD, CAD, chronic diastolic heart failure, chronic hypoxic respiratory failure (3L NC) secondary to a history of COPD, chronic hyponatremia, chronic alcohol abuse admitted from ED with general weakness falls at home. Pt says he uses a cane/walker at home, also uses a wheelchair. Pt continues to drink alcohol, last drink last night, ETOH elevated in ED. Pt denies any chest pain or sob. no nausea or vomiting. no abdominal pain. Pt denies any focal weakness in his arms or legs. Pt with no other complaints. Review of Systems Additional ROS info: Except as noted in the above Review of Systems and in the History of Present Illness all other systems have been reviewed and are negative or noncontributory. Scoring Henriquez Fall Risk Score: 110 High (03/14/23) Physical Exam Vitals & Measurements T: 36.6 ?C(Oral) HR: 60(Peripheral) RR: 23 BP: 125/72 SpO2: 98% HT: 185.42 cm WT: 76.1 kg General: alert, no acute distress Skin: warm, dry Head: no trauma, normocephalic Neck: Trachea midline, no adenopathy, no tenderness Eye: normal conjunctiva, sclera clear ENMT: oral mucosa moist, no pharyngeal erythema or exudate Cardiovascular: regular rate and rhythm, normal peripheral perfusion Respiratory: Lungs CTA, respirations non labored Chest wall: no deformity. Gastrointestinal: soft, non distended, no tenderness, no guarding. Back: No tenderness, Normal ROM, Normal alignment. Extremities: no deformity, no trauma Neurological: oriented x 4, LOC appropriate for age, CN II-XII intact, motor strength equal & normal bilaterally, sensation equal & normal bilaterally, speech normal Psychiatric: cooperative, affect appropriate for age, normal judgement, normal psychiatric thoughts. Lab Results WBC: 4.6 E9/L (03/14/23 04:00:00) RBC: 3.3 E12/L Low (03/14/23 04:00:00) HGB: 10.8 gm/dL Low (03/14/23 04:00:00) Hct: 31.8 % Low (03/14/23 04:00:00) MCV: 96.6 fL (03/14/23 04:00:00) MCH: 32.8 pg (03/14/23 04:00:00) MCHC: 34 gm/dL (03/14/23 04:00:00) RDW: 14 % (03/14/23 04:00:00) Platelet: 183 E9/L (03/14/23 04:00:00) MPV: 7.4 fL (03/14/23 04:00:00) Neutro Auto: 45 % (03/14/23 04:00:00) Lymph Auto: 36.3 % (03/14/23 04:00:00) [place] Auto: 11.3 % (03/14/23 04:00:00) Eos Auto: 6.3 % (03/14/23 04:00:00) Basophil Auto: 1.1 % (03/14/23 04:00:00) Neutro Absolute: 2.1 E9/L (03/14/23 04:00:00) Lymph Absolute: 1.7 E9/L (03/14/23 04:00:00) [place] Absolute: 0.5 E9/L (03/14/23 04:00:00) Eos Absolute: 0.3 E9/L (03/14/23 04:00:00) Basophil Absolute: 0.1 E9/L (03/14/23 04:00:00) PT: 11.7 second(s) (03/14/23 04:00:00) INR: 1 (03/14/23 04:00:00) PTT: 33 second(s) (03/14/23 04:00:00) Glucose Lvl: 94 mg/dL (03/14/23 04:00:00) BUN: 6 mg/dL (03/14/23 04:00:00) Creatinine: 0.8 mg/dL (03/14/23 04:00:00) eGFR: 98 mL/min/1.73 m2 (03/14/23 04:00:00) BUN/Creat Ratio: 8 Low (03/14/23 04:00:00) Sodium Lvl: 128 mmol/L Low (03/14/23 13:21:00) Potassium Lvl: 3.7 mmol/L (03/14/23 04:00:00) Chloride: 89 mmol/L Low (03/14/23 04:00:00) CO2: 30 mmol/L (03/14/23 04:00:00) AGAP: 10 mEq/L (03/14/23 04:00:00) Calcium Lvl: 8.5 mg/dL Low (03/14/23 04:00:00) Alk Phos: 63 Int._Unit/L (03/14/23 04:00:00) ALT: 16 Int._Unit/L (03/14/23 04:00:00) AST: 25 Int._Unit/L (03/14/23 04:00:00) Total Protein: 7.1 gm/dL (03/14/23 04:00:00) Albumin Lvl: 3.1 gm/dL Low (03/14/23 04:00:00) Globulin: 4 gm/dL (03/14/23 04:00:00) A/G Ratio: 0.8 Low (03/14/23 04:00:00) Bili Total: 0.5 mg/dL (03/14/23 04:00:00) Bili Direct: 0.2 mg/dL (03/14/23 04:00:00) Bili Indirect: 0.3 mg/dL (03/14/23 04:00:00) Magnesium: 1.4 mg/dL (03/14/23 06:49:00) Troponin: 7.3 pg/mL Low (03/14/23 13:21:00) U Amph Scr: Negative (03/14/23 04:49:00) U Jesica Scr: Negative (03/14/23 04:49:00) U Benzodia Scr: Negative (03/14/23 04:49:00) U Cannab Scr: Negative (03/14/23 04:49:00) U Cocaine Scr: Negative (03/14/23 04:49:00) U Opiate Scr: NEG1 (03/14/23 04:49:00) U PCP Scr: Negative (03/14/23 04:49:00) Ethanol Lvl: 342 mg/dL Critical (03/14/23 04:58:00) Rapid COVID Ag: Not Detected (03/14/23 09:13:00) Rapid COV Int NEG Ctl: Pass (03/14/23 09:13:00) Rapid COV Int POS Ctl: Pass (03/14/23 09:13:00) Diagnostic Results EKG sinus bradycardia no acute ST-T wave changes Images CT Abdomen/Pelvis w/o Contrast 03/14/23 08:27:[address] Chest w/o Contrast REPORT DATED: 03/14/2023. All CT scans at this facility use dose modulation, iterative reconstruction, and/or weight based dosing when appropriate to reduce radiation dose to as low as reasonably achievable. Ordering Provider: Zander Bull Signed By: Chris Marx MD 03/14/23 07:50:35 Rectal Contrast Given? No Oral contrast amount in ml?s: 0 Signed By: Chris Marx MD (more content not included)...[facility] HospitalComment on above:Result Comment: Electronically Signed By: SANJUANITA STRINGER, Dora\.br\Date and Time Signed: 03/14/23 15:39 [id number] Hospital Discharge instructions Follow Up Care 03/14/2023 03:39:40 With:Leo CAMERON Address: [address] [place] [address] [place] [address] Business (1) When:5 to 7 days [facility]02-01-2023 Evaluation + Plan noteExtracted from: Title:ED Note Author:Cem Aquino DO Date :08/14/22 Acute alcohol intoxication ( F10.929: Alcohol use, unspecified with intoxication, unspecified) Chronic hyponatremia (E87.1: Hypo-osmolality and hyponatremia) Fall (W19.XXXA: Unspecified fall, initial encounter) Orders: ABO/Rh ABO/Rh History Check Antibody Screen Automated Diff Basic Metabolic Panel Blood Bank ID# CBC w/ Auto Diff CT Abdomen/Pelvis w/o Contrast CT Chest w/o Contrast CT Head or Brain w/o Contrast CT Spine Cervical w/o Contrast Drug Screen Urine ECG 12 Lead Adult ED Cardiac Monitoring eGFR Ethanol Level Extra SST Tube Hepatic Function Panel Lactic Acid Lipase Level NPO Diet Oxygen Therapy PT & PTT Pulse Oximetry Continuous Saline Lock Insert Troponin Future Scheduled Tests Laboratory* Hepatic Function Panel 04/07/22 [facility]02-01-2023 Hospital Discharge instructions Patient Education 08/14/2022 03:12:42 Hyponatremia Hyponatremia Hyponatremia is when the amount of salt (sodium) in your blood is too low. When sodium levels are low, your cells absorb extra water, which causes them to swell. The swelling happens throughout the body, but it mostly affects the brain. What are the causes? This condition may be caused by: Certain medical conditions, such as: ?Heart, kidney, or liver problems. ?Thyroid problems. ?Adrenal gland problems. ?Metabolic conditions, such as [place] disease or syndrome of inappropriate antidiuretic hormone (SIADH). Severe vomiting or diarrhea. Certain medicines or illegal drugs. Dehydration. Drinking too much water. Eating a diet that is low in sodium. Large pierre on your body. Excessive sweating. What increases the risk? You are more likely to develop this condition if you: Have long-term (chronic) kidney disease. Have heart failure. Have a medical condition that causes frequent or excessive diarrhea. Participate in intense physical activities, such as marathon running. Take certain medicines that affect the sodium and fluid balance in the blood. Some of these medicine types include: ?Diuretics. ?NSAIDs. ?Some opioid pain medicines. ?Some antidepressants. ?Some seizure prevention medicines. What are the signs or symptoms? Symptoms of this condition include: Headache. Nausea and vomiting. Being very tired (lethargic). Muscle weakness and cramping. Loss of appetite. Feeling weak or light-headed. Severe symptoms of this condition include: Confusion. Agitation. Having a rapid heart rate. Passing out (fainting). Seizures. Coma. How is this diagnosed? This condition is diagnosed based on: A physical exam. Your medical history. Tests, including: ?Blood tests. ?Urine tests. How is this treated? Treatment for this condition depends on the cause. Treatment may include: Getting fluids through an IV that is inserted into one of your veins. Medicines to correct the sodium imbalance. If medicines are causing the condition, the medicines will need to be adjusted. Limiting your water or fluid intake to get the correct sodium balance. Monitoring in the hospital setting to closely watch your symptoms for improvement. Follow these instructions at home: Take gybc-rxi-owrijhy and prescription medicines only as told by your health care provider. Many medicines can make this condition worse. Talk with your health care provider about any medicines that you are currently taking. Carefully follow a recommended diet as told by your health care provider. Carefully follow instructions from your health care provider about fluid restrictions. Do not drink alcohol. Keep all follow-up visits as told by your health care provider. This is important. Contact a health care provider if: You develop worsening nausea, fatigue, headache, confusion, or weakness. Your symptoms go away and then return. You have problems following the recommended diet. Get help right away if: You have a seizure. You pass out. You have ongoing diarrhea or vomiting. Summary Hyponatremia is when the amount of salt (sodium) in your blood is too low. When sodium levels are low, your cells absorb extra water, which causes them to swell. The swelling happens throughout the body, but it mostly affects the brain. Treatment for this condition depends on the cause. It may include IV fluids, medicines, and limiting your fluid intake. This information is not intended to replace advice given to you by your health care provider. Make sure you discuss any questions you have with your health care provider. Document Released: 06/20/2003 Document Revised: 05/14/2019 Document Reviewed: 05/14/2019 [employer] Patient Education 2020 [employer] 08/14/2022 03:12:42 Alcohol Intoxication Alcohol Intoxication Alcohol intoxication occurs when a person no longer thinks clearly or functions well (becomes impaired) after drinking alcohol. Intoxication can occur with just one drink. The legal definition of alcohol intoxication depends on the amount of alcohol in the blood (blood alcohol concentration, MIKE). MIKE of 80 100 mg/dL or higher is commonly considered legally intoxicated. The level of impairment depends on: The amount of alcohol the person had. The person's age, gender, and weight. How often the person drinks. Whether the person has other medical conditions, such as diabetes, seizures, or a heart condition. Alcohol intoxication can range from mild to severe. The condition can be dangerous, especially if the person: Also took certain drugs or prescription medicines. Drinks a large amount of alcohol in a short period of time (binge drinks). ?For women, binge drinking is having four or more drinks at one time. ?For men, binge drinking is having five or more drinks at one time. If you or anyone around you appears intoxicated, speak up and act. What are the causes? This condition is caused by drinking alcohol. What increases the risk? The following factors may make you more likely to develop this condition: Peer pressure in young adults. Difficulty managing stress. History of drug or alcohol abuse. Combining alcohol with drugs. Family history of drug or alcohol abuse. Low body weight. Binge drinking. What are the signs or symptoms? Symptoms of alcohol intoxication can vary from person to person. Symptoms can be mild, moderate, orsevere. Symptoms of mild alcohol intoxication may include: Feeling relaxed or sleepy. Having mild difficulty with coordination, speech, memory, or attention. Symptoms of moderate alcohol intoxication may include: Extreme emotions, like anger or sadness. Moderate difficulty with coordination, speech, memory, or attention. Symptoms of severe alcohol intoxication may include: Severe difficulty with coordination, speech, memory, or attention. Passing out. Vomiting. Confusion. Slow breathing. Coma. Intoxication can change quickly from mild to severe. It can cause coma or , especially in people who are not exposed to alcohol often. How is this diagnosed? Your health care provider will ask you how much alcohol you drank and what kind you had. Intoxication may also be diagnosed based on: Your symptoms and medical history. A physical exam. A blood test that measures MIKE. A smell of alcohol on your breath. How is this treated? Treatment for alcohol intoxication may include: Being monitored in an emergency department, hospital, or treatment center until your MIKE comes downand it is safe for you to go home. IV fluids to prevent or treat loss of fluid in the body (dehydration). Medicine to treat nausea or vomiting or to get rid of alcohol in the body. Counseling (brief intervention) about the dangers of using alcohol. Treatment for substance use disorder. Oxygen therapy or a breathing machine (ventilator). Long-term (chronic) exposure to alcohol can have long-term effects on your brain, heart, and gastrointestinal system. These effects can be serious and may also require treatment. Follow these instructions at home: Eating and drinking Do not drink alcohol if: ?Your health care provider tells you not to drink. ?You are , may be , or are planning to become . ?You are under the legal drinking age (21 years old in the [place] ?You are taking medicines that should not be taken with alcohol. ?You have a medical condition, and alcohol makes it worse. ?You need to drive or perform activities that require you to be alert. ?You have substance use disorder. Ask your health care provider if alcohol is safe for you. If your health care provider allows you to drink alcohol, limit how much you have. You may drink: ?0 1 drink a day for women. ? 0 2 drinks a day for men. ?Be aware of how much alcohol is in your drink. In the [place] one drink equals one 12 oz bottle of beer (355 mL), one 5 oz glass of wine (148 mL), or one 1 oz shot of hard liquor (44 mL). Avoid drinking alcohol on an empty stomach. Stay hydrated. Drink enough fluid to keep your urine pale yellow. Avoid caffeine because it can dehydrate you. Avoid drinking more than one drink per hour. When having multiple drinks, drink water or a non-alcoholic beverage between alcoholic drinks. General instructions Take nhce-sfu-jbizyij and prescription medicines only as told by your health care provider. Do not drive after drinking any amount of alcohol. Plan for a designated haul truck driver or another way to go home. Have someone responsible stay with you while you are intoxicated. You should not be left alone. Keep all follow-up visits as told by your health care provider. This is important. Contact a health care provider if: You do not feel better after a few days. You have problems at work, at school, or at home due to drinking. Get help right away if: You have any of the following: ?Moderate to severe trouble with coordination, speech, memory, or attention. ?Trouble staying awake. ?Severe confusion. ?A seizure. ?Light-headedness. ?Fainting. ?Vomiting bright red blood or material that looks like coffee grounds. ?Bloody stool (feces). The blood may make your stool bright red, black, or tarry. It may also smellbad. ?Shakiness when trying to stop drinking. ?Thoughts about hurting yourself or others. If you ever feel like you may hurt yourself or others, or have thoughts about taking your own life,get help right away. You can go to your nearest emergency department or call: Your local emergency services (911 in the [place] A suicide crisis helpline, such as the National Suicide Prevention Lifeline at . Thisis open 24 hours a day. Summary Alcohol intoxication occurs when a person no longer thinks clearly or functions well after drinkingalcohol. If your health care provider says that alcohol is safe for you, limit alcohol intake to no more than 1 drink a day for women (no drinks if you are ) and 2 drinks a day for men. One drink equals 12 oz of beer, 5 oz of wine, or 1 oz of hard liquor. Contact your health care provider if drinking has caused you problems at work, school, or home. Get help right away if you have thoughts about hurting yourself or others. This information is not intended to replace advice given to you by your health care provider. Make sure you discuss any questions you have with your health care provider. Document Released: 04/09/2006 Document Revised: 10/20/2018 Document Reviewed: 10/20/2018 [employer] Patient Education [employer] Follow Up Care 08/14/2022 01:11:20 With:Leo CAMERON Address: [address] [place] [id number] Business (1) When:Within 3 Day(s) [facility]12-30-2022 History of Present illness Narrative* Chelly Dai MD - 07/12/2022 8:34 PM EST Images from the original note were not included. EMERGENCY TRIAGE, TREAT AND TRANSPORT (ET3) DOCUMENTATION OF TELEHEALTH VISIT Date / Time: 07/12/2022 / Name: Melba Levy : 1955 SSN: (Not on file) EMS Agency: [facility] [x] Verbal consent obtained [] Implied consent - patient with potential emergency medical condition requiring assessment of capacity to refuse treatment and/or transport VITAL SIGNS: see flowsheet documentation Reason for Telehealth Visit: No chief complaint on file. SOB oxygen machine issues History of Present Ilness: 66 male, copd, on oxygen Per ems issue with oxygen machine States he can breathe now. Wants to refuse Hx zee d/t connection issues Additional pertinent PMHx, SocHx, FamHx: copd Review of Systems: Denies the following: unable to tobtain d/t connection issues Exam: General: Awake, no distress ENT: normocephalic, atraumatic Pulmonary: No respiratory distress Cardiovascular: Well perfused Neurologic: Oriented to person, place, time and events. Moving all extremities equally. Psychiatric: Appropriate. Good insight and judgement. Medical Decision Making: Unable to complete full hx/ros/pe Patient briefly called in sob, and does not want to go to hospital Patient yelling at me take off my damn mask germs dont go through phone Patient yelling at me im not going to the [facility] Disposition Supported by Telehealth Assessment: ET3 transport decisions: Transport to hospital EMS Disposition Reported: Same ET3 Encounter Completed by: Chelly Dai MD documented in this [id number] Hospital Discharge instructions Patient Education 04/25/2022 21:07:32 Ataxia Ataxia Ataxia is a condition that causes unsteadiness when walking and standing, poor coordination of bodymovements, and difficulty keeping a straight (upright) posture. It occurs because of a problem withthe part of the brain that controls coordination and stability (cerebellum). Ataxia can develop later in life (acquired ataxia), during your 20s or 30s or even into your 60s orlater. This type of ataxia develops when another medical condition, such as a stroke, damages the cerebellum. Ataxia also may be present early in life (non-acquired ataxia). There are two main types of non-acquired ataxia: Congenital. This type is present at . Hereditary. This type is passed from parent to child. The most common form of hereditary non-acquired ataxia is Friedreich ataxia. What are the causes? Acquired ataxia may be caused by: Changes in the nervous system (neurodegenerative changes). Changes throughout the body (systemic disorders). A lot of exposure to: ?Certain medicines such as phenytoin and lithium. ?Solvents. These are cleaning fluids such as paint thinner, nail botswanan remover, hat cleaner, and degreasers. Alcohol abuse (alcoholism). Medical conditions, such as: ?Celiac disease. ?Hypothyroidism. ?A lack (deficiency) of vitamin E, vitamin B12, or thiamine. ?Brain tumors. ?Multiple sclerosis. ?Cerebral palsy. ?Stroke. ?Paraneoplastic syndromes. ?Viral infections. ?Head injury. ?Malnutrition. Congenital and hereditary ataxia are caused by problems that are present in genes before . What are the signs or symptoms? Signs and symptoms of ataxia vary depending on the cause. They may include: Being unsteady. Walking with the legs wide apart (wide stance) to keep one's balance. Uncontrolled shaking (tremor). Poorly coordinated body movements. Difficulty maintaining an upright posture. Fatigue. Changes in speech. Changes in vision. Involuntary eye movements (nystagmus). Difficulty swallowing. Difficulty writing. Muscle tightening that you cannot control (muscle spasms). How is this diagnosed? Ataxia may be diagnosed based on: Your personal and family medical history. A physical exam. Imaging tests, such as a CT scan or MRI. Spinal tap (lumbar puncture). This procedure involves using a needle to take a sample of the fluid around your brain and spinal cord. Genetic testing. How is this treated? The underlying condition that causes your ataxia needs to be treated. If the cause is a brain tumor, you may need surgery. Treatment also focuses on helping you live with ataxia and improving your quality of life (supportive treatments). This may involve: Learning ways to improve coordination and move around more carefully (physical therapy). Learning ways to improve your ability to do daily tasks, such as bathing and feeding yourself (occupational therapy). Using devices to help you move around, eat, or communicate (assistive devices), such as a walker, modified eating utensils, and communication aids. Learning ways to improve speech and swallowing (speech therapy). Follow these instructions at home: Preventing falls Lie down right away if you become very unsteady, dizzy, or nauseous, or if you feel like you are going to faint. Do not get up until all of those feelings pass. Keep your home well-lit. Use night-lights as needed. Remove tripping hazards, such as rugs, cords, and clutter. Install grab bars by the toilet and in the tub and shower. Use assistive devices such as a cane, walker, or wheelchair as needed to keep your balance. General instructions Do not drink alcohol. Ask your health care provider what activities are safe for you, and what activities you should avoid. Take gmqa-zzh-tajvyaa and prescription medicines only as told by your health care provider. Get help right away if you: Have unsteadiness that suddenly worsens. Have any of these: ?Severe headaches. ?Chest pain. ?Abdominal pain. ?Weakness or numbness on one side of your body. ?Vision problems. ?Difficulty speaking. ?An irregular heartbeat. ?A very fast pulse. Feel confused. Summary Ataxia is a condition that causes unsteadiness when walking and standing, poor coordination of bodymovements, and difficulty keeping a straight (upright) posture. Ataxia occurs because of a problem with the part of the brain that controls coordination and stability (cerebellum). The underlying condition that causes your ataxia needs to be treated. Treatment also focuses on helping you live with ataxia and improving your quality of life (supportive treatments). Lie down right away if you become very unsteady, dizzy, or nauseous, or if you feel like you are going to faint. This information is not intended to replace advice given to you by your health care provider. Make sure you discuss any questions you have with your health care provider. Document Released: 01/25/2015 Document Revised: 06/12/2018 Document Reviewed: 05/01/2018 [employer] Patient Education 2019 [employer] [facility] [place] 10-07-2022 Hospital Discharge instructions Patient Education 04/19/2022 03:07:31 Alcohol Abuse and Nutrition Alcohol Abuse and Nutrition Alcohol abuse is any pattern of alcohol consumption that harms your health, relationships, or work.Alcohol abuse can cause poor nutrition (malnutrition or malnourishment) and a lack of nutrients (nutrient deficiencies), which can lead to more complications. Alcohol abuse brings malnutrition and nutrient deficiencies in two ways: It causes your liver to work abnormally. This affects how your body divides (breaks down) and absorbs nutrients from food. It causes you to eat poorly. Many people who abuse alcohol do not eat enough carbohydrates, protein, fat, vitamins, and minerals. Nutrients that are commonly lacking (deficient) in people who abuse alcohol include: Vitamins. ?Vitamin A. This is needed for your vision, metabolism, and ability to fight off infections (immunity). ?B vitamins. These include folate, thiamine, and niacin. These are needed for new cell growth. ?Vitamin C. This plays an important role in wound healing, immunity, and helping your body to absorb iron. ?Vitamin D. This is necessary for your body to absorb and use calcium. It is produced by your liver, but you can also get it from food and from sun exposure. Minerals. ?Calcium. This is needed for healthy bones as well as heart and blood vessel (cardiovascular) function. ?Iron. This is important for blood, muscle, and nervous system functioning. ?Magnesium. This plays an important role in muscle and nerve function, and it helps to control blood sugar and blood pressure. ?Zinc. This is important for the normal functioning of your nervous system and digestive system (gastrointestinal tract). If you think that you have an alcohol dependency problem, or if it is hard to stop drinking becauseyou feel sick or different when you do not use alcohol, talk with your health care provider or another health professional about where to get help. Nutrition is an essential factor in therapy for alcohol abuse. Your health care provider or diet and it technical support specialist (dietitian) will work with you to design a plan that can help to restore nutrients to your body and prevent the risk of complications. What is my plan? Your dietitian may develop a specific eating plan that is based on your condition and any other problems that you have. An eating plan will commonly include: A balanced diet. ?Grains: 6 8 oz (170 227 g) a day. Examples of 1 oz of whole grains include 1 cup of whole-wheat cereal, cup of brown rice, or 1 slice of whole-wheat bread. ?Vegetables: 2 3 cups a day. Examples of 1 cup of vegetables include 2 medium carrots, 1 large tomato, or 2 stalks of celery. ?Fruits: 1 2 cups a day. Examples of 1 cup of fruit include 1 large banana, 1 small apple, 8 large strawberries, or 1 large orange. ?Meat and other protein: 5 6 oz (142 170 g) a day. ?A cut of meat or fish that is the size of a deck of cards is about 3 4 oz. ?Foods that provide 1 oz of protein include 1 egg, cup of nuts or seeds, or 1 tablespoon (16 g) of peanut butter. ?Dairy: 2 3 cups a day. Examples of 1 cup of dairy include 8 oz (230 mL) of milk, 8 oz (230 g) of yogurt, or 1 oz (44 g) of natural cheese. Vitamin and mineral supplements. What are tips for following this plan? Eat frequent meals and snacks. Try to eat 5 6 small meals each day. Take vitamin or mineral supplements as recommended by your dietitian. If you are malnourished or if your dietitian recommends it: ?You may follow a high-protein, high-calorie diet. This may include: ?2,000 3,000 calories (kilocalories) a day. ?70 100 g (grams) of protein a day. ?You may be directed to follow a diet that includes a complete nutritional supplement beverage. This can help to restore calories, protein, and vitamins to your body. Depending on your condition, youmay be advised to consume this beverage instead of your meals or in addition to them. Certain medicines may cause changes in your appetite, taste, and weight. Work with your health careprovider and dietitian to make any changes to your medicines and eating plan. If you are unable to take in enough food and calories by mouth, your health care provider may recommend a feeding tube. This tube delivers nutritional supplements directly to your stomach. Recommended foods Eat foods that are high in molecules that prevent oxygen from reacting with your food (antioxidants). These foods include grapes, berries, nuts, green tea, and dark green or orange vegetables. Eatingthese can help to prevent some of the stress that is placed on your liver by consuming alcohol. Eat a variety of fresh fruits and vegetables each day. This will help you to get fiber and vitaminsin your diet. Drink plenty of water and other clear fluids, such as apple juice and broth. Try to drink at least 48 64 oz (1.5 2 L) of water a day. Include foods fortified with vitamins and minerals in your diet. Commonly fortified foods include milk, orange juice, cereal, and bread. Eat a variety of foods that are high in omega-3 and omega-6 fatty acids. These include fish, nuts and seeds, and soybeans. These foods may help your liver to recover and may also stabilize your mood. If you are a vegetarian: ?Eat a variety of protein-rich foods. ?Pair whole grains with plant-based proteins at meals and snack time. For example, eat rice with beans, put peanut butter on whole-grain toast, or eat oatmeal with sunflower seeds. The items listed above may not be a complete list of foods and beverages you can eat. Contact a dietitian for more information. Foods to avoid Avoid foods and drinks that are high in fat and sugar. Sugary drinks, salty snacks, and candy contain empty calories. This means that they lack important nutrients such as protein, fiber, and vitamins. Avoid alcohol. This is the best way to avoid malnutrition due to alcohol abuse. If you must drink, drink measured amounts. Measured drinking means limiting your intake to no more than 1 drink a day for non women and 2 drinks a day for men. One drink equals 12 oz (355 mL) of beer, 5 oz (148 mL) of wine, or 1 oz (44 mL) of hard liquor. Limit your intake of caffeine. Replace drinks like coffee and black tea with decaffeinated coffee and decaffeinated herbal tea. The items listed above may not be a complete list of foods and beverages you should avoid. Contact a dietitian for more information. Summary Alcohol abuse can cause poor nutrition (malnutrition or malnourishment) and a lack of nutrients (nutrient deficiencies), which can lead to more health problems. Common nutrient deficiencies include vitamin deficiencies (A, B, C, and D) and mineral deficiencies(calcium, iron, magnesium, and zinc). Nutrition is an essential factor in therapy for alcohol abuse. Your health care provider and dietitian can help you to develop a specific eating plan that includes a balanced diet plus vitamin and mineral supplements. This information is not intended to replace advice given to you by your health care provider. Make sure you discuss any questions you have with your health care provider. Document Released: 04/24/2006 Document Revised: 10/19/2019 Document Reviewed: 03/17/2018 [employer] Patient Education 2020 [employer]. Follow Up Care 04/18/2022 14:52:16 With:Leo CAMERON Address: [address] [place] [id number]- [facility] (1) When:04/26/2022 14:00:00 [facility]10-06-2022 Evaluation + Plan noteExtracted from: Title:Admission H & P Author:Jamshid Foley MD Date:04/18/22 66-year-old male with past m edical history of COPD on 4L oxygen, CAD s/p CABG in 2004, diastolic dysfunction, mild pulmonary hypertension, chronic hyponatremia, carotid artery stenosis (less than 50% stenosis bilaterally per carotid ultrasound 11/2021), hypertension, hyperlipidemia, rheumatoid arthritis, neuropathy, alcohol abuse, nicotine abuse, BPH presented with fall and weakness. Weakness Fall CT head, CT C-spine, CT chest, x-ray right and left shoulders, ECG, CBC, lactic acid, lipase unremarkable. Chronic mild elevation of LFTs Fall likely due to alcohol intoxication PT consult Alcohol intoxication Ethanol level 295 CIWA assessment Thiamine, folic acid, multivitamin Acute on chronic hyponatremia Sodium 125. Normal saline at 75 cc/h Hepatic steatosis Chronic mild elevation of LFTs, AST more than ALT. INR unremarkable CT abdomen/pelvis showed diffuse fatty infiltration and steatosis of liver Chronic mild thrombocytopenia Likely due to alcohol abuse COPD Chronic hypoxic respiratory failure On 4 L O2 chronically. On Symbicort CAD status post CABG in 2004 On aspirin, pravastatin, beta-rhoda Diastolic dysfunction Mild pulmonary hypertension Hypertension echocardiogram 01/2021 with EF 65%, stage II diastolic dysfunction, trivial TR, mild pulmonary hypertension On Coreg Rheumatoid arthritis On leflunomide, hydroxychloroquine Carotid artery stenosis Carotid ultrasound 12/02 less than 50% stenosis bilaterally. Yearly follow-up outpatient AAA Infrarenal aorta of [address] abdomen . Follow-up imaging outpatient in 3 years Anxiety On lorazepam as needed Urinary incontinence BPH On oxybutynin, tamsulosin Nicotine abuse Current smoker. Advised the patient against smoking especially he is on oxygen. Patient is not interested in quitting Diet: Regular Code: Full code DVT prophylaxis: heparin Dispo: observation; anticipated hosp stay <2 midnights This report was transcribed using voice recognition software. Every effort was made to ensure accuracy, however, inadvertently computerized florist designer mistakes may be present. Dr. Jamshid Stewarter Hospitalist Orders: heparin, 5,000 unit(s) = 1 mL, Injection, SubCutaneous, BID for 30 day(s), Stop date 05/18/22 20:59:00 EDT, Routine, Start date 04/18/22 21:00:00 EDT, 04/18/22 17:54:00 EDT hydrALAZINE, 10 mg = 0.5 mL, Injection, IV Push, q6hr PRN Other (see comment), Routine, Start date 04/18/22 17:54:00 EDT, 04/18/22 17:54:00 EDT ondansetron, 4 mg = 2 mL, Injection, IV Push, q6hr PRN Nausea, Routine, Start date 04/18/22 17:54:00 EDT, 04/18/22 17:54:00 EDT potassium chloride, 40 mEq = 2 tab(s), Tab-ER, Oral, Once, Stop date 04/18/22 18:00:00 EDT, Routine, Start date 04/18/22 18:00:00 EDT, 04/18/22 17:53:00 EDT Sodium Chloride 0.9% intravenous solution 1,000 mL, 1,000 mL, IV, 100 mL/hr, Routine, Start date 04/18/22 17:54:00 EDT, 10 hour(s), Total volume (mL): 1,000, 76.4 kg, 1.98, m2 Add on Test Basic Metabolic Panel Cardiac Monitoring CBC w/ Auto Diff Clinical Donie Withdrawal Assessment Hepatic Function Panel Magnesium Level Notify Provider Vital Signs Notify Provider Vital Signs Occupational Therapy Evaluate Patient, Develop a Plan of Care and Implement Plan Physical Therapy Evaluate Patient, Develop a Plan of Care and Implement Plan Place in Status Pulse Oximetry Regular Diet Resuscitation Status - Full Vital Signs Weight Extracted from: Title:ED Note Author:Joanie Larsen Date: PanCT pending MIKE CBC/BMP abnormal congruent to patients alcoholism and chronic conditions Pain control and antiemetics prn. This is a student note, please await final signature from fabrication supervisor Signed, Joanie Larsen, BURKE-S2 1. Weakness (R53.1: Weakness) 2. Fall (W19.XXXA: Unspecified fall, initial encounter) 3. Hyponatremia (E87.1: Hypo-osmolality and hyponatremia) 4. Alcohol intoxication (F10.929: Alcohol use, unspecified with intoxication, unspecified) 5. Hepatic steatosis (K76.0: Fatty (change of) liver, not elsewhere classified) 6. Thrombocytopenia (D69.6: Thrombocytopenia, unspecified) 7. Chronic obstructive pulmonary disease (J44.9: Chronic obstructive pulmonary disease, unspecified) 8. CAD (coronary artery disease) (I25.10: Atherosclerotic heart disease of [place] coronary artery without angina pectoris) 9. Diastolic dysfunction (I51.89: Other ill-defined heart diseases) 10. Mild pulmonary hypertension (I27.20: Pulmonary hypertension, unspecified) 11. Hypertension (I10: Essential (primary) hypertension) 12. AAA (abdominal aortic aneurysm) (I71.40: Abdominal aortic aneurysm, without rupture, unspecified) 13. Anxiety (F41.9: Anxiety disorder, unspecified) Orders: morphine, 4 mg = 2 mL, Injection, IV Push, Once, Stop date 04/18/22 15:22:00 EDT, STAT, Start date 04/18/22 15:22:00 EDT, 04/18/22 15:22:00 EDT ondansetron, 4 mg = 2 mL, Injection, IV Push, Once, Stop date 04/18/22 15:22:00 EDT, STAT, Start date 04/18/22 15:22:00 EDT, 04/18/22 15:22:00 EDT ondansetron, 4 mg = 2 mL, Injection, IV Push, Once, Stop date 04/18/22 16:06:00 EDT, STAT, Start date 04/18/22 16:06:00 EDT, 04/18/22 16:06:00 EDT Sodium Chloride 0.9% intravenous solution, 1,000 mL, Soln-IV, IV, Once, Stop date 04/18/22 14:59:00 EDT, STAT, Start date 04/18/22 14:59:00 EDT, mL/hr, Infuse over 61, minute(s) ABO/Rh ABO/Rh History Check Antibody Screen Automated Diff Basic Metabolic Panel Blood Bank ID# CBC w/ Auto Diff CT Abdomen/Pelvis w/ Contrast CT Chest w/ Contrast CT Head or Brain w/o Contrast CT Spine Cervical w/o Contrast Drug Screen Urine ECG 12 Lead Adult ED Cardiac Monitoring ED Physician consult Hospitalist for continued care eGFR Ethanol Level Hepatic Function Panel Lactic Acid Lipase Level Magnesium Level Phosphorus Level PT & PTT Saline Lock Insert Troponin XR Shoulder Complete Left XR Shoulder Complete Right Future Appointments Appointment Date:04/26/2022 02:00:00 PM Scheduled Provider:Duglas CRUZ MD Location:[facility] Appointment Type: ER/Hospital Follow Up Future Scheduled Tests Laboratory* Basic Metabolic Panel 08/09/21 * Hepatic Function Panel 04/07/22 [facility]09-29-2022 Hospital Discharge instructions Patient Education 04/11/2022 20:48:43 Alcohol Abuse and Dependence Information, Adult Alcohol Abuse and Dependence Information, Adult Alcohol is a widely available drug. People drink alcohol in different amounts. People who drink alcohol very often and in large amounts often have problems during and after drinking. They may developwhat is called an alcohol use disorder. There are two main types of alcohol use disorders: Alcohol abuse. This is when you use alcohol too much or too often. You may use alcohol to make yourself feel happy or to reduce stress. You may have a hard time setting a limit on the amount you drink. Alcohol dependence. This is when you use alcohol consistently for a period of time, and your body changes as a result. This can make it hard to stop drinking because you may start to feel sick or feel different when you do not use alcohol. These symptoms are known as withdrawal. How can alcohol abuse and dependence affect me? Alcohol abuse and dependence can have a negative effect on your life. Drinking too much can lead toaddiction. You may feel like you need alcohol to function normally. You may drink alcohol before work in the morning, during the day, or as soon as you get home from work in the evening. These actions can result in: Poor work performance. Job loss. Financial problems. Car crashes or criminal charges from driving after drinking alcohol. Problems in your relationships with friends and family. Losing the trust and respect of coworkers, friends, and family. Drinking heavily over a long period of time can permanently damage your body and brain, and can cause lifelong health issues, such as: Damage to your liver or pancreas. Heart problems, high blood pressure, or stroke. Certain cancers. Decreased ability to fight infections. Brain or nerve damage. Depression. Early (premature) . If you are careless or you crave alcohol, it is easy to drink more than your body can handle (overdose). Alcohol overdose is a serious situation that requires hospitalization. It may lead to permanent injuries or . What can increase my risk? Having a family history of alcohol abuse. Having depression or other mental health conditions. Beginning to drink at an early age. Binge drinking often. Experiencing trauma, stress, and an unstable home life during childhood. Spending time with people who drink often. What actions can I take to prevent or manage alcohol abuse and dependence? Do not drink alcohol if: ?Your health care provider tells you not to drink. ?You are , may be , or are planning to become . If you drink alcohol: ?Limit how much you use to: ?0 1 drink a day for women. ?0 2 drinks a day for men. ?Be aware of how much alcohol is in your drink. In the [place] one drink equals one 12 oz bottle of beer (355 mL), one 5 oz glass of wine (148 mL), or one 1 oz glass of hard liquor (44 mL). Stop drinking if you have been drinking too much. This can be very hard to do if you are used to abusing alcohol. If you begin to have withdrawal symptoms, talk with your health care provider or a person that you trust. These symptoms may include anxiety, shaky hands, headache, nausea, sweating, ornot being able to sleep. Choose to drink nonalcoholic beverages in social gatherings and places where there may be alcohol. Activity Spend more time on activities that you enjoy that do not involve alcohol, like hobbies or exercise. Find healthy ways to cope with stress, such as exercise, meditation, or spending time with people you care about. General information Talk to your family, coworkers, and friends about supporting you in your efforts to stop drinking. If they drink, ask them not to drink around you. Spend more time with people who do not drink alcohol. If you think that you have an alcohol dependency problem: ?Tell friends or family about your concerns. ?Talk with your health care provider or another health professional about where to get help. ?Work with a therapist and a chemical dependency counselor. ?Consider joining a support group for people who struggle with alcohol abuse and dependence. Where to find support Your health care provider. [facility]: www.[facility].org Therapy and support groups Local treatment centers or chemical dependency counselors. Local AA groups in your community: www.aa.org Where to find more information Centers for Disease Control and Prevention: www.cdc.gov National Donie on Alcohol Abuse and Alcoholism: www.niaaa.nih.gov Alcoholics Anonymous (AA): www.aa.org Contact a health care provider if: You drank more or for longer than you intended on more than one occasion. You tried to stop drinking or to cut back on how much you drink, but you were not able to. You often drink to the point of vomiting or passing out. You want to drink so badly that you cannot think about anything else. You have problems in your life due to drinking, but you continue to drink. You keep drinking even though you feel anxious, depressed, or have experienced memory loss. You have stopped doing the things you used to enjoy in order to drink. You have to drink more than you used to in order to get the effect you want. You experience anxiety, sweating, nausea, shakiness, and trouble sleeping when you try to stop drinking. Get help right away if: You have thoughts about hurting yourself or others. You have serious withdrawal symptoms, including: ?Confusion. ?Racing heart. ?High blood pressure. ?Fever. If you ever feel like you may hurt yourself or others, or have thoughts about taking your own life,get help right away. You can go to your nearest emergency department or call: Your local emergency services (911 in the [place] A suicide crisis helpline, such as the National Suicide Prevention Lifeline at . Thisis open 24 hours a day. Summary Alcohol abuse and dependence can have a negative effect on your life. Drinking too much or too often can lead to addiction. If you drink alcohol, limit how much you use. If you are having trouble keeping your drinking under control, find ways to change your behavior. Hobbies, calming activities, exercise, or support groups can help. If you feel you need help with changing your drinking habits, talk with your health care provider, a good friend, or a therapist, or go to an AA group. This information is not intended to replace advice given to you by your health care provider. Make sure you discuss any questions you have with your health care provider. Document Released: 06/24/2017 Document Revised: 10/19/2019 Document Reviewed: 09/07/2019 [employer] Patient Education 2020 [employer]. [facility] [place] 09-25-2022 Evaluation + Plan note Future Scheduled Tests Laboratory* Hepatic Function Panel 04/07/22 [facility] 09-22-2022 Evaluation + Plan noteExtracted from: Title:Discharge Note Author:Jamshid Foley MD Date:04/04/22 Discharged to - Home independently Prescriptions AirDuo RespiClick 113 mcg-14 mcg/inh inhalation powder, 1 puff, Inhalation, BID, 5 refills albuterol HFA 90 mcg/inh MDI, 2 puff(s), Inhalation, q4hr, PRN, 5 refills albuterol HFA 90 mcg/inh MDI, 2 puff(s), Inhalation, q4hr, PRN, 5 refills carvedilol 25 mg Tab, 25 mg= 1 tab(s), Oral, BID, 5 refills, Not taking ferrous sulfate 325 mg Tab, 325 mg= 1 tab(s), Oral, Daily, 3 refills, Not taking fluticasone 0.05 mg/inh Nasal Muse, 1 spray(s), Nasal, BID, 11 refills, Not taking folic acid 1 mg Tab, 1 mg= 1 tab(s), Oral, Daily, Not taking LORazepam 1 mg Tab, 1 mg= 1 tab(s), Oral, QID, PRN, Not taking Multi Vitamins oral tablet, 1 tab(s), Oral, Daily, Not taking nitroglycerin 0.4 mg sublingual Tab, 0.4 mg= 1 tab(s), SubLingual, q5min, PRN, 11 refills, Not taking oxybutynin 5 mg Tab, 5 mg= 1 tab(s), Oral, BID, 5 refills, Not taking oxyCODONE 5 mg Tab, 5 mg= 1 tab(s), Oral, q6hr, PRN potassium chloride 20 mEq Oral Pwdr, 1 packet(s), Oral, BID, 5 refills, Not taking pravastatin 40 mg Tab, 40 mg= 1 tab(s), Oral, Daily, 3 refills, Not taking Symbicort 160/4.5 inhalation aerosol with adapter, 2 puff(s), Inhalation, BID, 11 refills tamsulosin 0.4 mg Cap, 0.4 mg= 1 cap(s), Oral, Bedtime, 3 refills, Not taking thiamine 100 mg Tab, 100 mg= 1 tab(s), Oral, Daily, Not taking traZODONE 50 mg Tab, 50 mg= 1 tab(s), Oral, Once a day (at bedtime), Not taking Home acetaminophen 325 mg Tab, 650 mg= 2 tab(s), Oral, q6hr, PRN, Not taking aspirin 81 mg Oral EC Tab, 81 mg= 1 tab(s), Oral, Daily bumetanide 2 mg Tab, 2 mg= 1 tab(s), Oral, Daily, Not taking cholecalciferol 1000 intl units (25 mcg) oral tablet, 25 mcg= 1 tab(s), Oral, Daily, Not taking DuoNeb 2.5 mg-0.5 mg/3 mL Soln-Inh, 3 mL, Inhalation, QID hydroxychloroquine 200 mg Tab, 200 mg= 1 tab(s), Oral, q12hr, Not taking leflunomide 10 mg oral tablet, 10 mg= 1 tab(s), Oral, Daily, Not taking No qualifying data available Extracted from: Title:Admission H & P Author:Avni MEJIAS DO Date:04/03/22 1. Hyponatremia (E87.1: Hypo -osmolality and hyponatremia) Suspect combination of beer potomania and decreased dietary intake. We will put patient on 1.5 L fluid restriction. 0.9 normal saline at 50 mill per hour. We will check sodium levels every 4 hours. 2. Acute alcohol intoxication (F10.929: Alcohol use, unspecified with intoxication, unspecified) [facility] protocol. 3. Encounter for examination following a fall (Z04.3: Encounter for examination and observation following other accident) Trauma evaluation completed and unremarkable. 4. CAD (coronary artery disease) (I25.10: Atherosclerotic heart disease of [place] coronary artery without angina pectoris) No active anginal complaints. Resume home medications once reconciled. 5. Cigarette nicotine dependence (F17.210: Nicotine dependence, cigarettes, uncomplicated) Nicotine patch as needed. 6. COPD with exacerbation (J44.1: Chronic obstructive pulmonary disease with (acute) exacerbation) Pulmonary toilet as ordered - duo-nebs q6hrs and alb neb q2hrs prn, budesonide neb twice daily 7. Hypertension (I10: Essential (primary) hypertension) Hydralazine iv prn. see orders. 8. Chronic pain (G89.29: Other chronic pain) Oxycodone as needed 9. Benign prostate hyperplasia (N40.0: Benign prostatic hyperplasia without lower urinary tract symptoms) Resume home medications once reconciled. 10. Hypoxemic respiratory failure, chronic (J96.11: Chronic respiratory failure with hypoxia) Oxygen as needed 11. Mixed hyperlipidemia (E78.2: Mixed hyperlipidemia) Resume home statin dose 12. Rheumatoid arthritis (M06.9: Rheumatoid arthritis, unspecified) Resume home medications once reconciled. 13. DVT prophylaxis (Z29.9: Encounter for prophylactic measures, unspecified) SCD, heparin Orders: acetaminophen, 650 mg = 2 tab(s), Tab, Oral, q6hr PRN Pain, Routine, Start date 04/04/22 1:04:00 EDT, 04/04/22 1:04:00 EDT albuterol, 2.5 mg = 3 mL, Soln-Inh, NEB, q2hr PRN Shortness of breath or wheezing for 30 day(s), Stop date 05/04/22 1:01:00 EDT, Routine, Start date 04/04/22 1:02:00 EDT, 04/04/22 1:02:00 EDT albuterol-ipratropium, 3 mL, Soln-Inh, Inhalation, QID, Routine, Start date 04/04/22 8:00:00 EDT budesonide, 0.5 mg = 2 mL, Susp-Inh, NEB, BID for 30 day(s), Stop date 05/04/22 7:59:00 EDT, Routine, Start date 04/04/22 8:00:00 EDT, 04/04/22 1:02:00 EDT diphenhydrAMINE, 25 mg = 1 cap(s), Cap, Oral, q6hr PRN Itching, Routine, Start date 04/04/22 1:04:00 EDT, 04/04/22 1:04:00 EDT folic acid, 1 mg = 1 tab(s), Tab, Oral, Daily, Routine, Start date 04/04/22 9:00:00 EDT, 04/04/22 1:03:00 EDT heparin, 5,000 unit(s) = 1 mL, Injection, SubCutaneous, BID for 30 day(s), Stop date 05/04/22 8:59:00 EDT, Routine, Start date 04/04/22 9:00:00 EDT, 04/04/22 1:04:00 EDT hydrALAZINE, 10 mg = 0.5 mL, Injection, IV Push, q6hr PRN Other (see comment), Routine, Start date 04/04/22 1:04:00 EDT, 04/04/22 1:04:00 EDT ibuprofen, 800 mg = 1 tab(s), Tab, Oral, TID PRN Pain, Routine, Start date 04/04/22 1:04:00 EDT, 04/04/22 1:04:00 EDT lorazepam, 1 mg = 1 tab(s), Tab, Oral, QID PRN Anxiety, Routine, Start date 04/04/22 1:03:00 EDT, 04/04/22 1:03:00 EDT lorazepam, 1 mg = 0.5 mL, Injection, IV Push, q6hr PRN Anxiety, Routine, Start date 04/04/22 1:03:00 EDT, 04/04/22 1:03:00 EDT lorazepam, 2 mg = 1 mL, Injection, IV Push, q6hr PRN Anxiety, Routine, Start date 04/04/22 1:03:00 EDT, 04/04/22 1:03:00 EDT lorazepam, 1 mg = 0.5 mL, Injection, IV Push, q1hr PRN Anxiety, Routine, Start date 04/04/22 1:03:00 EDT, 04/04/22 1:03:00 EDT multivitamin, 1 tab(s), Tab, Oral, Daily, Routine, Start date 04/04/22 9:00:00 EDT ondansetron, 4 mg = 2 mL, Injection, IV Push, q6hr PRN Nausea, Routine, Start date 04/04/22 1:04:00 EDT, 04/04/22 1:04:00 EDT oxycodone, 5 mg = 1 tab(s), Tab, Oral, q4hr PRN Pain for 5 day(s), Stop date 04/09/22 0:08:00 EDT, Routine, Start date 04/04/22 0:09:00 EDT promethazine, 12.5 mg = 0.5 mL, Injection, IV Push, q6hr PRN Nausea, Routine, Start date 04/04/22 1:04:00 EDT, 04/04/22 1:04:00 EDT Sodium Chloride 0.9% intravenous solution 1,000 mL, 1,000 mL, IV, 50 mL/hr, Routine, Start date 04/04/22 1:04:00 EDT, 20 hour(s), Total volume (mL): 1,000, 78.1 kg, 1.97, m2 thiamine, 100 mg = 1 tab(s), Tab, Oral, Daily, Routine, Start date 04/04/22 9:00:00 EDT, 04/04/22 1:03:00 EDT Ambulate with Assistance Below the Knee Intermittent Pneumatic Compression Device Cardiac Monitoring Clinical Donie Withdrawal Assessment Clinical Donie Withdrawal Assessment Clinical Donie Withdrawal Assessment Clinical Donie Withdrawal Assessment Communication Order Physician to Nursing Intake and Output Notify Provider Vital Signs Notify Provider Vital Signs Oxygen Protocol Place in Status Precautions Regular Diet Resuscitation Status - Full Sodium Level Vital Signs Vital Signs Vital Signs Vital Signs Vital Signs Weight Anticipated stay greater than 2 midnights due to above Extracted from: Title:ED Note Author:Zander uBll MD Date: 1. Acute alcohol intoxicatio n (F10.929: Alcohol use, unspecified with intoxication, unspecified) 2. Encounter for examination following a fall (Z04.3: Encounter for examination and observation following other accident) 3. Hyponatremia (E87.1: Hypo-osmolality and hyponatremia) Orders: Automated Diff Basic Metabolic Panel CBC w/ Auto Diff Cervical Collar CT Abdomen/Pelvis w/ Contrast CT Chest w/ Contrast CT Head or Brain w/o Contrast CT Spine Cervical w/o Contrast Drug Screen Urine ECG 12 Lead Adult ED Cardiac Monitoring ED Physician consult Hospitalist for continued care eGFR Ethanol Level Hepatic Function Panel Lipase Level Oxygen Therapy PT & PTT Pulse Oximetry Continuous Saline Lock Insert Troponin UA With Cult Reflex Future Appointments Appointment Date:04/12/2022 02:00:00 PM Scheduled Provider:Duglas CRUZ MD Location:[facility] Appointment Type: ER/Hospital Follow Up Appointment Date:04/17/2022 11:00:00 AM Scheduled Provider:Leo GARZA Location:[facility] Appointment Type: Open Future Scheduled Tests Laboratory* Basic Metabolic Panel 08/09/21 * Hepatic Function Panel 04/07/22 [facility]09-22-2022 Hospital Discharge instructions Patient Education 04/04/2022 10:32:21 Alcohol Intoxication, Evft-kq-Sitm Alcohol Intoxication Alcohol intoxication happens when you cannot think clearly or function well (get impaired) after drinking alcohol. This can happen after just one drink. The effect that alcohol has on how you think and function depends on: How much alcohol you drank. Your age, your weight, and whether you are a man or a woman. How often you drink alcohol. If you have other medical problems. Alcohol intoxication can range from mild to very bad. It can be dangerous, especially if you: Drink a large amount of alcohol in a short time (binge drink). ?For women, binge drinking is having four or more drinks at one time. ?For men, binge drinking is having five or more drinks at one time. Take certain drugs or medicines. If you or anyone around you seems intoxicated: Tell someone. Get help from someone. Follow these instructions at home: Eating and drinking Ask your doctor if alcohol is safe for you. ?If your doctor says that alcohol is safe for you, limit how much you drink to no more than 1 drinka day for women who are not and 2 drinks a day for men. One drink equals one of these: ?12 oz of beer. ?5 oz of wine. ?1 oz of hard liquor. ?Do not drink alcohol if: ?Your doctor tells you not to drink. ?You are , may be , or are planning to get . ?You are under the legal drinking age (21 years old in the [place] ?You are taking medicines that you should not take with alcohol. ?Alcohol causes your medical problem to get worse. ?You have to drive or do activities that need you to be alert. ?You have substance use disorder. This is when using alcohol again and again causes problems with your health, your relationships, or with what you need to do at work, home, or school. ?Be sure to eat before you drink alcohol. Avoid drinking when you have an empty stomach. ?Make sure you have enough fluid in your body (stay hydrated). To do this: ?Drink enough fluid to keep your pee (urine) pale yellow. ?Avoid caffeine, which may be in coffee, tea, and some sodas. Caffeine can make you thirsty. ?Try not to drink more than one drink an hour. ?If you are having more than one drink, have a drink without alcohol (such as water) between your drinks. General instructions Take zznr-nyw-mfwkdcu and prescription medicines only as told by your doctor. Do not drive after drinking any amount of alcohol. Plan for a designated haul truck driver or another way to go home. Have someone you trust stay with you while you are intoxicated. Youshould not be left alone. Keep all follow-up visits as told by your doctor. This is important. Contact a doctor if: You do not feel better after a few days. You have problems at work, at school, or at home due to drinking. Get help right away if: You have any of the following: ?Moderate or very bad trouble with: ?Movement (coordination). ?Talking. ?Memory. ?Paying attention to things. ?Trouble staying awake. ?Being very confused. ?Jerky movements that you cannot control (seizure). ?Light-headedness. ?Fainting. ?Throwing up (vomiting) blood. The blood may be bright red or look like coffee grounds. ?Blood in your poop (stool). The blood may: ?Be bright red. ?Make your poop black and tarry and make it smell bad. ?Feeling shaky when you try to stop drinking. ?Thoughts about hurting yourself or others. If you ever feel like you may hurt yourself or others, or have thoughts about taking your own life,get help right away. You can go to your nearest emergency department or call: Your local emergency services (911 in the [place] A suicide crisis helpline, such as the National Suicide Prevention Lifeline at . Thisis open 24 hours a day. Summary Alcohol intoxication happens when you cannot think clearly or function well (get impaired) after drinking alcohol. This can happen after just one drink. If your doctor says that alcohol is safe for you, limit how much you drink to no more than 1 drink a day for women who are not and 2 drinks a day for men. Contact a doctor if you have problems at work, at school, or at home due to drinking. Get help right away if you have thoughts about hurting yourself or others. This information is not intended to replace advice given to you by your health care provider. Make sure you discuss any questions you have with your health care provider. Document Released: 12/16/2008 Document Revised: 12/01/2019 Document Reviewed: 10/20/2018 Elsevier Patient Education 2020 [employer] Follow Up Care 04/03/2022 20:09:10 With:Leo GARZA Address: [address] [place], [place] [address]- When:04/12/2022 14:00:00 Comments:First available appointment; follow-up will be with Dr. Deng Cruz. Please call if you need to reschedule. Thank you! [facility]07-08-2022 Hospital Discharge instructions Patient Education 01/17/2022 22:36:59 Ataxia Ataxia Ataxia is a condition that causes unsteadiness when walking and standing, poor coordination of bodymovements, and difficulty keeping a straight (upright) posture. It occurs because of a problem withthe part of the brain that controls coordination and stability (cerebellum). Ataxia can develop later in life (acquired ataxia), during your 20s or 30s or even into your 60s orlater. This type of ataxia develops when another medical condition, such as a stroke, damages the cerebellum. Ataxia also may be present early in life (non-acquired ataxia). There are two main types of non-acquired ataxia: Congenital. This type is present at . Hereditary. This type is passed from parent to child. The most common form of hereditary non-acquired ataxia is Friedreich ataxia. What are the causes? Acquired ataxia may be caused by: Changes in the nervous system (neurodegenerative changes). Changes throughout the body (systemic disorders). A lot of exposure to: ?Certain medicines such as phenytoin and lithium. ?Solvents. These are cleaning fluids such as paint thinner, nail botswanan remover, hat cleaner, and degreasers. Alcohol abuse (alcoholism). Medical conditions, such as: ?Celiac disease. ?Hypothyroidism. ?A lack (deficiency) of vitamin E, vitamin B12, or thiamine. ?Brain tumors. ?Multiple sclerosis. ?Cerebral palsy. ?Stroke. ?Paraneoplastic syndromes. ?Viral infections. ?Head injury. ?Malnutrition. Congenital and hereditary ataxia are caused by problems that are present in genes before . What are the signs or symptoms? Signs and symptoms of ataxia vary depending on the cause. They may include: Being unsteady. Walking with the legs wide apart (wide stance) to keep one's balance. Uncontrolled shaking (tremor). Poorly coordinated body movements. Difficulty maintaining an upright posture. Fatigue. Changes in speech. Changes in vision. Involuntary eye movements (nystagmus). Difficulty swallowing. Difficulty writing. Muscle tightening that you cannot control (muscle spasms). How is this diagnosed? Ataxia may be diagnosed based on: Your personal and family medical history. A physical exam. Imaging tests, such as a CT scan or MRI. Spinal tap (lumbar puncture). This procedure involves using a needle to take a sample of the fluid around your brain and spinal cord. Genetic testing. How is this treated? The underlying condition that causes your ataxia needs to be treated. If the cause is a brain tumor, you may need surgery. Treatment also focuses on helping you live with ataxia and improving your quality of life (supportive treatments). This may involve: Learning ways to improve coordination and move around more carefully (physical therapy). Learning ways to improve your ability to do daily tasks, such as bathing and feeding yourself (occupational therapy). Using devices to help you move around, eat, or communicate (assistive devices), such as a walker, modified eating utensils, and communication aids. Learning ways to improve speech and swallowing (speech therapy). Follow these instructions at home: Preventing falls Lie down right away if you become very unsteady, dizzy, or nauseous, or if you feel like you are going to faint. Do not get up until all of those feelings pass. Keep your home well-lit. Use night-lights as needed. Remove tripping hazards, such as rugs, cords, and clutter. Install grab bars by the toilet and in the tub and shower. Use assistive devices such as a cane, walker, or wheelchair as needed to keep your balance. General instructions Do not drink alcohol. Ask your health care provider what activities are safe for you, and what activities you should avoid. Take tulz-ymk-vpvmunn and prescription medicines only as told by your health care provider. Get help right away if you: Have unsteadiness that suddenly worsens. Have any of these: ?Severe headaches. ?Chest pain. ?Abdominal pain. ?Weakness or numbness on one side of your body. ?Vision problems. ?Difficulty speaking. ?An irregular heartbeat. ?A very fast pulse. Feel confused. Summary Ataxia is a condition that causes unsteadiness when walking and standing, poor coordination of bodymovements, and difficulty keeping a straight (upright) posture. Ataxia occurs because of a problem with the part of the brain that controls coordination and stability (cerebellum). The underlying condition that causes your ataxia needs to be treated. Treatment also focuses on helping you live with ataxia and improving your quality of life (supportive treatments). Lie down right away if you become very unsteady, dizzy, or nauseous, or if you feel like you are going to faint. This information is not intended to replace advice given to you by your health care provider. Make sure you discuss any questions you have with your health care provider. Document Released: 01/25/2015 Document Revised: 06/12/2018 Document Reviewed: 05/01/2018 [employer] Patient Education 2020 [employer]. Follow Up Care 01/15/2022 11:12:26 With:Duglas CRUZ MD, FAM Address: When:Within 3 Month(s) Comments:labs to be called [facility] [place] 07-05-2022 History of Present illness Narrative* Asael Sheppard APRN.OYSTER HARVESTER - 01/15/2022 12:00 AM EDT [facility] NOTE NAME: CAROLINA LEVY NO.: [id number] DATE OF SERVICE: 01/15/2022 [facility] DATE OF : 1955 REASON FOR VISIT: The patient is a resident of [facility]. This is a skilled visit for recurrent falls and other medical concerns. Upon entering the room, found the patient sleeping in bed. The patient does not appear to be in distress or discomfort, is noted to have supplemental oxygen on. The patient is easy to arouse. The patient states he is ready to go home. The patient states has been working well with therapy and has been walking, transferring through the halls and outside without difficulty. The patient states no complaints of pain, cough, shortness of breath. No fever, chills, or nausea. States appetite is good and bowels have been moving. States has been drinking fluids. Denies urinary symptoms. MEDICATIONS: Medications have been reviewed. EXAMINATION: Temp 97.8, blood pressure 110/68, pulse 88, respirations 20, pulse ox 95% on room air.Weight 173.8 pounds. Respiratory: Respirations are easy and unlabored with the patient at rest. Lung sounds are clear and slightly diminished. Heart: Heart rate and rhythm irregular. Abdomen: Soft, nontender with palpation. Bowel sounds present x4. Extremities: Non-edematous. IMPRESSION AND PLAN: 1. Recurrent falls. No falls have been reported since the patient has been at [facility]. 2. Alcohol abuse. The patient shows no sign of withdrawal. He currently has lorazepam as needed. Continues thiamine, folic acid. 3. Hyponatremia. Sodium 142. Sodium chloride tabs have been discontinued. 4. Hypokalemia. Potassium chloride supplement has been increased due to hypokalemia of 3.3. We willrepeat BMP. 5. Coronary artery disease. No coronary concerns are identified. Currently takes aspirin, carvedilol, and pravastatin. 6. Chronic obstructive pulmonary disease. Continue AirDuo, albuterol inhaler. Albuterol inhaler can be left at the bedside. 7. Vitamin D deficiency. Currently on supplement. 8. Personal history of COVID-19. No COVID-related concerns are identified. DICTATED BY: SHIRA Larsen/Norris JOB# [id number] cc:[facility] documented in this encounterSt. [facility]06[facility] History of Present illness Narrative* Mallika Thomsonn - 01/08/2022 12:00 AM EDT [facility] NOTE NAME: CAROLINA LEVY NO.: [id number] DATE OF SERVICE: 01/08/2022 [facility] DATE OF : 1955 Followup skilled care. He is currently up in his bed working on some puzzles. He is actually alert, smiling in good spirits. He is quite cooperative. He states he is doing much better. His potassium was switched to a powder liquid, which he is tolerating better than the tablets. He denies any shortness of breath or chestpain. His appetite has been good. PHYSICAL EXAMINATION: Afebrile, his vital signs stable. He is in no distress. HEENT: Intact. Lungs:Clear. Heart: Regular. Abdomen: Soft, nontender. Bowel sounds present. Extremities: No edema. IMPRESSIONS: 1. Recent COVID positive status - he has been fairly symptomatic. Monitor closely. 2. Recurrent falls with history of alcoholism and recent acute alcohol intoxication - no signs of withdrawal. He has had no further falls. Fall precautions are present. Continue with current physicaltherapy. 3. Electrolytes imbalance with hyponatremia and hypokalemia - his recent labs were probably within the fair range. 4. Coronary artery disease with previous myocardial infarction and coronary artery bypass graft - cardiac status stable. 5. Chronic obstructive pulmonary disease with ongoing smoking history - continue to monitor his respiratory status closely. 6. Vitamin D deficiency - continue withsupplement. 7. Rheumatoid arthritis - no active flare up. Maintain current treatment. DICTATED BY: MD PATITO Hancock/Norris JOB# [id number] cc:[facility] documented in this encounterSt. [facility]06-27-[facility]22 History of Present illness Narrative* Asael Sheppard APRN.OYSTER HARVESTER - 01/07/2022 12:00 AM EDT [facility] NOTE NAME: MELBA LEVYYUSEF NO.: [id number] DATE OF SERVICE: 01/07/2022 [facility] DATE OF : 1955 REASON FOR VISIT: Patient is resident of [facility]. This a skilled visit for hypokalemia and other medical concerns. Patient has pending lab work today. For patient assessment found patient ambulating in halls. Patient does not appear to be in distress or discomfort. Patient appears to be in very good spirits today. Patient is in wheelchair with supplemental oxygen on. Patientstates has his chronic rheumatoid pain. Patient states is using his medications as prescribed. Patient requests to have a potassium pill supplemented with the drink. Patient states the pill is too big and salty. Patient states no other complaints. No cough. No shortness of breath. No fever, chills or nausea. States his appetite is good and has returned. Patient states bowels are moving. States has been drinking fluids. Denies urinary symptoms. MEDICATIONS: Reviewed. EXAMINATION: Temp 98.8, blood pressure 144/86, pulse 77, respirations 18, pulse ox 98% on room air.Weight 171.4 pounds. Respiratory: Respirations are easy and unlabored with patient at rest. Lung sounds clear and diminished. Heart: Heart rate and rhythm are regular. Abdomen: Soft, nontender with palpation. Bowel sounds present x4. Extremities: Nonedematous. IMPRESSION AND PLAN: 1. Abnormal electrolytes. Patient has pending lab today. Sodium chloride tab will be changed to effervescent form. 2. Alcohol abuse with intoxication. Patient does have lorazepam as needed. No tremors identified at this time. Patient is calm and cooperative with examination. Patient has been discussed of possible outpatient treatments. 3. Personal history of COVID-19. Patient has no COVID related complaints. Continue to encourage fluids. 4. Coronary artery disease without angina. No coronary concerns are identified. Currently on aspirin, carvedilol, pravastatin and nitroglycerin sublingual p.r.n. 5. Respiratory failure with chronic obstructive pulmonary disease. Patient has resumed smoking again and nicotine patch has been discontinued. Patient does take albuterol inhaler and fluticasone. 6. Rheumatoid arthritis. Patient does follow with rheumatology service and currently is on leflunomide, hydrochloroquine, Tylenol for lesser pain and oxycodone for more severe pain. DICTATED BY: SHIRA Larsen/Norris JOB# [id number] cc:Gilberto Carrillo documented in this encounterSt. [facility]06-21-2022 History of Present illness Narrative* Asael Sheppard APRN.CNS - 01/01/2022 12:00 AM EDT [facility] NOTE NAME: CAROLINA LEVY NO.: [id number] DATE OF SERVICE: 01/01/2022 [facility] DATE OF : 1955 REASON FOR VISIT: The patient is a resident of [facility]. This is a skilled visit for coronavirus and other medical concerns. Upon entering room, found the patient in semi-Bermeo's position, the patient does not appear to be in distress or discomfort. The patient is notably agitated, states she does not like his isolation and then states that he all he wants is a cigarette at this time. The patient states he does have pain to the bilateral hands. Pain is from his rheumatoid arthritis. The patient states no other complaints of cough, shortness of breath, fever, chills, or nausea. States appetite has not been the best, but his bowels have been moving. States has been drinking fluids. Denies urinary symptoms. MEDICATIONS: Medications have been reviewed. EXAMINATION: Temp 97.9, blood pressure 138/82, pulse 67, respirations 18, pulse ox 98% on room air.Weight 171.4 pounds. Respiratory: Respirations are easy and unlabored with the patient at rest. Lung sounds are clear and diminished Heart: Heart rate and rhythm are regular. Abdomen: Soft, nontenderwith palpation. Bowel sounds present x4. Extremities: Non-edematous. IMPRESSION AND PLAN: 1. COVID-19. Push fluids. The patient has no symptoms at this time. 2. Hyponatremia with hypokalemia. Repeat labs this on January 03, 2022. 3. Alcohol abuse with intoxication. Monitor for withdrawal symptoms. Continue with lorazepam, thiamine, and folic acid supplements. 4. Coronary artery disease without angina. No coronary concerns are identified. Continue with aspirin, carvedilol, pravastatin, and nitroglycerin sublingual. 5. Chronic respiratory failure with chronic obstructive pulmonary disease. Continue supplemental oxygen, DuoAir, albuterol sulfate, fluticasone. The patient is on nicotine patch. 6. Rheumatoid arthritis. Continue leflunomide, hydroxychloroquine. Oxycodone for more severe pain and Tylenol for lesserpain. 7. Vitamin D deficiency. Cholecalciferol increased. DICTATED BY: SHIRA Larsen/Norris JOB# [id number] cc:[facility] documented in this encounterSt. [facility]06-16-[facility]22 History of Present illness Narrative* Asael Sheppard APRN.OYSTER HARVESTER - 12/27/2021 12:00 AM EDT [facility] NOTE NAME: CAROLINA LEVY NO.: [id number] DATE OF SERVICE: 12/27/2021 [facility] DATE OF : 1955 REASON FOR VISIT: The patient is a resident of [facility]. This is a skilled visit for COVID-19 with other medical concerns. Staff reports the patient was found to be Rapid COVID positive 2 days ago and placed on isolation unit. Prior to entering room, donned full PPE, entered the patient's room, found the patient sleeping in low-Bermeo 's position. The patient does not appear to be in distress or discomfort. The patient is easily aroused. The patient states it feels as though nothing has changed since he has been admitted. The patient states he is short of breath, but he is always short of breath. No unusual shortness of breath and the patient has not had to increase his O2 due to demands. The patient states pain is being controlled with current medications. Does get premedicated prior to going to therapy services. has been working with therapy services. The patient states no cough, no fever, chills, or nausea. The patient states no loss of taste or smell. The patient states appetite has been decreased, but has been his appetite has been and off for quite some time. The patient states has been drinking fluids and denies urinary symptoms. MEDICATIONS: Medications have been reviewed. EXAMINATION: Temp 97.8, blood pressure 110/75, pulse 74, respirations 18, pulse ox 96% on room air.Weight 171.4 pounds. Respiratory: Respirations are easy and unlabored with the patient at rest. Lung sounds are clear. Heart: Heart rate and rhythm irregular. Abdomen: Soft, nontender with palpation.Bowel sounds present x4. Extremities: Non-edematous. IMPRESSION AND PLAN: 1. COVID-19. The patient is on continuous O2. Continue to encourage fluids. The patient does have laboratory work, CBC, BMP, PT, and INR, as well as vitamin D pending. 2. Alcohol abuse with intoxication. The patient is currently on Ativan. No tremors are identified at this time. 3. Coronary artery disease without angina. No coronary concerns were identified and currently on carvedilol, pravastatin, aspirin. 4. Chronic respiratory failure with chronic obstructive pulmonary disease and currently takes albuterol inhaler. The patient is on continuous supplemental oxygen. 5. Smoker. The patient is on nicotine patch at this time. 6. Rheumatoid arthritis. Currently on leflunomide, hydroxychloroquine. Tylenol for lesser pain, oxycodone for more severe pain. The patient does follow with Rheumatology services. DICTATED BY: SHIRA Larsen/Norris JOB# [id number] cc:Gilberto Carrillo documented in this encounterSt. [facility] Hospital06-08-2022 History of Present illness Narrative* Mallika Thomsonn - 12/19/2021 12:00 AM EDT [facility] NOTE NAME: CAMCAROLINA NO.: [id number] DATE OF SERVICE: 12/19/2021 Gilberto Carrillo DATE OF : 1955 New Patient History and Physical HISTORY OF PRESENT ILLNESS: The patient is a 66-year-old male who was admitted to us from [facility] with the diagnosis of acute / frequent falls, acute alcohol intoxication with history of chronic alcoholism and abuse, electrolyte imbalance with hyponatremia and hypokalemia, BPH, CAD, with remote CABG, diastolic dysfunction, hypertension, hyperlipidemia, rheumatoid arthritis, COPD with heavy ongoing smoking history, neuropathy, chronic pain syndrome, generalized weakness, hypertension, history of noncompliance, acute rib contusion, and generalized weakness. He was initially admitted to the hospital after experiencing another acute fall. He was complaining of right-sided rib pain related to previous recent rib fracture secondary to a fall. Evaluation revealed him to be acutely intoxicated with an alcohol level of 433. His was concerned that she no can longer take care of him at home at this time. Laboratory testing did reveal acute on chronic hyponatremia and hypokalemia, for which was given appropriate supplementation. He did injure his left hand while in the hospital when he apparently hit against his walker. His condition was stabilized, and he is now admitted to our facility for continued therapy. REVIEW OF SYSTEMS: He is currently sitting up in bed. He is alert and oriented. He admits to drinking and being intoxicated. He does complain of generalized pain. He states that he was receiving Ativan in the hospital, which seemed to help relieve his pain as well as provide relief for his anxiety.He is not aware of having hit his head. He had no change in his vision or hearing. He currently denies being short of breath. He does have COPD with ongoing smoking history of 3 to 4 packs daily. No recent pneumonias. He does have a history of CAD with previous CABG and diastolic dysfunction with mild pulmonary hypertension. He has had no recent chest pain or angina. He has had previous heart attacks. History of hypertension and hyperlipidemia. However, he has been noncompliant with his medication. His appetite has been poor to fair. He has had no history of bleeding ulcers, hepatitis, or recent melena. He does have chronic hypoxic respiratory failure and apparently is on home oxygen therapy. He does have BPH along with degenerative osteoarthritis, history of recurrent syncopal falls, chronic back, general weakness and debility. No documented prior strokes or seizures, diabetes mellitus, bleeding problems, or blood clots. FAMILY HISTORY: Significant for hypertension as well as cardiac arrest. His father was also an alcoholic. SOCIAL/FUNCTIONAL HISTORY: He smoked 3 to 4 packs daily. Also history of heavy alcohol abuse up to 24 beers daily as well as whiskey. He previously worked odd construction jobs. He has been living athome with his . MEDICATIONS: Lorazepam 1 mg q.i.d. p.r.n., oxycodone p.r.n., trazodone 50 mg at bedtime, albuterol inhaler p.r.n., albuterol/Atrovent aerosol treatment 4 times a day, aspirin 81 mg daily, Bumex 2 mg daily, Coreg 25 mg b.i.d., cholecalciferol 1000 units daily, ferrous sulfate 325 mg daily, fluticasone nasal spray daily, Advair Diskus daily, folic acid 1 mg daily, hydroxychloroquine 20 mg daily, leflunomide 10 mg daily, multivitamin daily, nicotine patch daily, oxybutynin 5 mg b.i.d., potassium chloride 20 mEq 2 tablets b.i.d., pravastatin 40 mg daily, tamsulosin 0.4 mg daily, thiamine 100 mg daily. ALLERGIES: CLONIDINE. EXAMINATION: He is currently afebrile, vital signs stable. He is in no distress. He appears chronically ill. HEENT: Extraocular movements intact. Sclerae nonicteric. Ears intact. Lungs: Clear with decreased breath sounds bilaterally. Heart: Regular. Abdomen: Soft, non-tender. Bowel sounds present. Extremities: With no significant edema. He does have hyperpigmentation changes. He does have generalized weakness. IMPRESSION: 1. Acute / recurrent falls with acute alcohol intoxication with history of alcohol abuse - fall precautions are present. He was in the CIWA protocol while in the hospital. He will continue current Ativan. 2. Acute on chronic hyponatremia and hypokalemia - we will monitor his electrolytes closely. We will obtain followup BMP. 3. Coronary artery disease with previous myocardial infarction and coronary artery bypass grafting - continue to monitor his cardiac status closely. 4. Chronic obstructive pulmonary disease with ongoing smoking history with chronic hypoxic respiratory failure on continuous home oxygen therapy - continue to monitor respiratory status closely. Maintain current respiratory treatments and supplemental oxygen. 5. Functional assessment - he does havegeneralized weakness. He will be receiving rehab services for overall strengthening and conditioning. Overall condition and prognosis is quite guarded. We will obtain followup labs including CBC and BMP. He does have a history of noncompliance with his medications. We will encourage him to take medications as prescribed and recommended. DICTATED BY: MD PATITO Hancock/Norris JOB# [id number] [facility] Discharge instructions Patient Education 2021 16:01:06 Fall Prevention in the Home, Adult, [id number] Fall Prevention in the Home, Adult Falls can cause injuries. They can happen to people of all ages. There are many things you can do to make your home safe and to help prevent falls. Ask for help when making these changes, if needed. What actions can I take to prevent falls? General Instructions Use good lighting in all rooms. Replace any light bulbs that burn out. Turn on the lights when you go into a dark area. Use night-lights. Keep items that you use often in fudv-tu-kazfd places. Lower the shelves around your home if necessary. Set up your furniture so you have a clear path. Avoid moving your furniture around. Do not have throw rugs and other things on the floor that can make you trip. Avoid walking on wet floors. If any of your floors are uneven, fix them. Add color or contrast paint or tape to clearly adriana and help you see: ?Any grab bars or handrails. ?First and last steps of stairways. ?Where the edge of each step is. If you use a stepladder: ?Make sure that it is fully opened. Do not climb a closed stepladder. ?Make sure that both sides of the stepladder are locked into place. ?Ask someone to hold the stepladder for you while you use it. If there are any pets around you, be aware of where they are. What can I do in the bathroom? Keep the floor dry. Clean up any water that spills onto the floor as soon as it happens. Remove soap buildup in the tub or shower regularly. Use non-skid mats or decals on the floor of the tub or shower. Attach bath mats securely with double-sided, non-slip rug tape. If you need to sit down in the shower, use a plastic, non-slip stool. Install grab bars by the toilet and in the tub and shower. Do not use towel bars as grab bars. What can I do in the bedroom? Make sure that you have a light by your bed that is easy to reach. Do not use any sheets or blankets that are too big for your bed. They should not hang down onto thefloor. Have a firm chair that has side arms. You can use this for support while you get dressed. What can I do in the kitchen? Clean up any spills right away. If you need to reach something above you, use a strong step stool that has a grab bar. Keep electrical cords out of the way. Do not use floor botswanan or wax that makes floors slippery. If you must use wax, use non-skid floor wax. What can I do with my stairs? Do not leave any items on the stairs. Make sure that you have a light switch at the top of the stairs and the bottom of the stairs. If you do not have them, ask someone to add them for you. Make sure that there are handrails on both sides of the stairs, and use them. Fix handrails that are broken or loose. Make sure that handrails are as long as the stairways. Install non-slip stair treads on all stairs in your home. Avoid having throw rugs at the top or bottom of the stairs. If you do have throw rugs, attach them to the floor with carpet tape. Choose a carpet that does not hide the edge of the steps on the stairway. Check any carpeting to make sure that it is firmly attached to the stairs. Fix any carpet that is loose or worn. What can I do on the outside of my home? Use bright outdoor lighting. Regularly fix the edges of walkways and driveways and fix any cracks. Remove anything that might make you trip as you walk through a door, such as a raised step or threshold. Trim any bushes or trees on the path to your home. Regularly check to see if handrails are loose or broken. Make sure that both sides of any steps have handrails. Install guardrails along the edges of any raised decks and porches. Clear walking paths of anything that might make someone trip, such as tools or rocks. Have any leaves, snow, or ice cleared regularly. Use sand or salt on walking paths during winter. Clean up any spills in your garage right away. This includes grease or oil spills. What other actions can I take? Wear shoes that: ?Have a low heel. Do not wear high heels. ?Have rubber bottoms. ?Are comfortable and fit you well. ?Are closed at the toe. Do not wear open-toe sandals. Use tools that help you move around (mobility aids) if they are needed. These include: ?Canes. ?Walkers. ?Scooters. ?Crutches. Review your medicines with your doctor. Some medicines can make you feel dizzy. This can increase your chance of falling. Ask your doctor what other things you can do to help prevent falls. Where to find more information Centers for Disease Control and Prevention, [place]: https://cdc.gov National [place] on Aging: https://yv9mcfv.kym.nih.gov Contact a doctor if: You are afraid of falling at home. You feel weak, drowsy, or dizzy at home. You fall at home. Summary There are many simple things that you can do to make your home safe and to help prevent falls. Ways to make your home safe include removing tripping hazards and installing grab bars in the bathroom. Ask for help when making these changes in your home. This information is not intended to replace advice given to you by your health care provider. Make sure you discuss any questions you have with your health care provider. Document Released: 04/26/2010 Document Revised: 10/21/2019 Document Reviewed: 02/12/2018 [employer] Patient Education 2020 [employer]. Follow Up Care 12/14/2021 22:32:37 With:Leo CAMERON Address: [address] [place] [phone] (1) When: Unknown Comments:Call for followup appointment [facility]06-06-2022 Evaluation + Plan noteExtracted from: Title:APSO Note Author:July TREJO Date:12/17/21 PLAN 1. Frequent falls (R29.6: Repeated falls) -Brought in by EMS--freq falls at home with concern for possibly injury. -Alcohol level 433 -Likely r/t ETOH intox/abuse. is concerned stating pt has had numerous falls. -PT/OT to eval, treat feel pt is at baseline. - The CT of the brain, cervical spine, chest abdomen and pelvis shows no acute process -Recent discharge on 12/07/21 pt had neuro work up wiht negative CT head, MRI brain, Carotid US, US etc. Pt was to see PT/OT at that time and refused. Discussion with pt today 12/17: Concern about going home as he states, I am too unsteady. I wobble all over the place and lean when walking . Will discuss with PT. I did watch pt and he is unsteady when up. However he has been getting up without the use of his walker. I do feel pt would benefit from SNF to prevent injury and educate on appropriate walker use etc. Concern about pt returning home leading to fall with injury. Believe pt would benefit from SNF stay. 2. Acute alcohol intoxication (F10.929: Alcohol use, unspecified with intoxication, unspecified) -Pt with known hx ETOH abuse. Drinks multiple drinks of beer/black velvet whiskey daily. Reports at least 3 glasses whiskey EVS TECH. -CIWA elevated this AM. -given Ativan IV -Folic acid, thiamine -2 gram MagSO4 x 1 3. Hyponatremia (E87.1: Hypo-osmolality and hyponatremia) -Resolved with gentle IVF. 4. Hypokalemia (E87.6: Hypokalemia) -Resolved. 5. Benign prostate hyperplasia (N40.0: Benign prostatic hyperplasia without lower urinary tract symptoms) -Flomax 6. CAD (coronary artery disease) (I25.10: Atherosclerotic heart disease of [place] coronary artery without angina pectoris) -Coreg, ASA 7. Hyperlipidemia (E78.5: Hyperlipidemia, unspecified) -Statin 8. Hypertension (I10: Essential (primary) hypertension) -Coreg 9. DVT prophylaxis (Z29.9: Encounter for prophylactic measures, unspecified) SCDs 10. Rib contusion (S20.219A: Contusion of unspecified front wall of thorax, initial encounter) -Recent rib fx on right side ribs. 11. Non-compliant patient (Z91.19: Patient's noncompliance with other medical treatment and regimen) -Pt known non compliant. Refuses to take meds as directed. - Pt. educated on the need for medication and medical care plan compliance, the need for smoking and alcohol cessation, patient verbalizes he has no intent to stop smoking or drinking alcohol 12. Left hand pain (M79.642: Pain in left hand) -Pt with new left hand swelling states that nurse was handing him a tray and he hit his hand awkwardly on the tray since that time left hand has been swollen and painful. Pain extends into his left wrist. -Left hand/ wrist xray pending Pt was admitted to inpt status by . Extracted from: Title:APSO Note Author:July TREJO Date:12/16/21 PLAN 1. Frequent falls (R29.6: Repeated falls) -Brought in by EMS--freq falls likely due to ETOH abuse. -Alcohol level 433 -Likely r/t ETOH intox/abuse. is concerned stating pt has had numerous falls. -PT/OT to eval, treat feel pt is at baseline. - The CT of the brain, cervical spine, chest abdomen and pelvis shows no acute process -Recent discharge on 12/07/21 pt had neuro work up wiht negative CT head, MRI brain, Carotid US, US etc. Pt was to see PT/OT at that time and refused. 2. Acute alcohol intoxication (F10.929: Alcohol use, unspecified with intoxication, unspecified) -Pt with known hx ETOH abuse. Drinks multiple drinks of beer/black velvet whiskey daily. Reports at least 3 glasses whiskey EVS TECH. -CIWA elevated this AM. -given Ativan IV -Folic acid, thiamine -2 gram MagSO4 x 1 3. Hyponatremia (E87.1: Hypo-osmolality and hyponatremia) -Resolved with gentle IVF. 4. Hypokalemia (E87.6: Hypokalemia) -Resolved. 5. Benign prostate hyperplasia (N40.0: Benign prostatic hyperplasia without lower urinary tract symptoms) -Flomax 6. CAD (coronary artery disease) (I25.10: Atherosclerotic heart disease of [place] coronary artery without angina pectoris) -Coreg, ASA 7. Hyperlipidemia (E78.5: Hyperlipidemia, unspecified) -Statin 8. Hypertension (I10: Essential (primary) hypertension) -Coreg 9. DVT prophylaxis (Z29.9: Encounter for prophylactic measures, unspecified) SCDs 10. Rib contusion (S20.219A: Contusion of unspecified front wall of thorax, initial encounter) -Recent rib fx on right side ribs. 11. Non-compliant patient (Z91.19: Patient's noncompliance with other medical treatment and regimen) -Pt known non compliant. Refuses to take meds as directed. - Pt. educated on the need for medication and medical care plan compliance, the need for smoking and alcohol cessation, patient verbalizes he has no intent to stop smoking or drinking alcohol Pt was admitted to inpt status by . Extracted from: Title:APSO Note Author:July TREJO Date:12/15/21 PLAN 1. Frequent falls (R29.6: Repeated falls) -Brought in by EMS -Alcohol level 433 -Likely r/t ETOH intox/abuse. is concerned stating pt has had numerous falls. -PT/OT to eval, treat and make recommenations. -The CT of the brain, cervical spine, chest abdomen and pelvis shows no acute process -Recent discharge on 12/07/21 pt had neuro work up wiht negative CT head, MRI brain, Carotid US, US etc. Pt was to see PT/OT at that time and refused. 2. Acute alcohol intoxication (F10.929: Alcohol use, unspecified with intoxication, unspecified) -Pt with known hx ETOH abuse. Drinks multiple drinks of beer/black velvet whiskey daily. Reports at least 3 glasses whiskey EVS TECH. -CIWA elevated this AM. -given Ativan IV -Folic acid, thiamine -2 gram MagSO4 x 1 3. Hyponatremia (E87.1: Hypo-osmolality and hyponatremia) -Resolved with gentle IVF. 4. Hypokalemia (E87.6: Hypokalemia) -Resolved. 5. Benign prostate hyperplasia (N40.0: Benign prostatic hyperplasia without lower urinary tract symptoms) -Flomax 6. CAD (coronary artery disease) (I25.10: Atherosclerotic heart disease of [place] coronary artery without angina pectoris) -Coreg, ASA 7. Hyperlipidemia (E78.5: Hyperlipidemia, unspecified) -Statin 8. Hypertension (I10: Essential (primary) hypertension) -Coreg 9. DVT prophylaxis (Z29.9: Encounter for prophylactic measures, unspecified) SCDs 10. Rib contusion (S20.219A: Contusion of unspecified front wall of thorax, initial encounter) -Recent rib fx on right side ribs. 11. Non-compliant patient (Z91.19: Patient's noncompliance with other medical treatment and regimen) -Pt known non compliant. Refuses to take meds as directed. -Pt. educated on the need for medication and medical care plan compliance, the need for smoking and alcohol cessation, patient verbalizes he has no intent to stop smoking or drinking alcohol Pt was admitted to inpt status by . Orders: carvedilol, 25 mg = 1 tab(s), Tab, Oral, BID, NOW, Start date 12/15/21 12:30:00 EDT, 12/15/21 12:30:00 EDT magnesium sulfate + Generic Diluent 50 mL, 2 gram = 50 mL, Soln-IV, IV Piggyback, Once, Stop date 12/15/21 13:00:00 EDT, Routine, Start date 12/15/21 13:00:00 EDT, 25 mL/hr, Infuse over 2 hour(s) oxycodone, 5 mg = 1 tab(s), Tab, Oral, q6hr PRN Breakthrough Pain, Routine, Start date 12/15/21 12:49:00 EDT, 12/15/21 12:49:00 EDT Education Fall Risk Precautions Extracted from: Title:Admission H & P Author:Avni MEJIAS DO Date:12/15/21 1. Hyponatremia (E87.1: Hypo -osmolality and hyponatremia) Gentle IV fluids. Recheck with morning labs. 2. Acute alcohol intoxication (F10.929: Alcohol use, unspecified with intoxication, unspecified) Supportive care. [place] protocol. 3. Frequent falls (R29.6: Repeated falls) Suspect related to above. Supportive care. No longer intoxicated we will ask physical therapy and Occupational Therapy to evaluate patient. Radiologic CAT scan trauma evaluation shows no acute injuries. 4. Hypokalemia (E87.6: Hypokalemia) Replete and recheck with morning labs 5. Benign prostate hyperplasia (N40.0: Benign prostatic hyperplasia without lower urinary tract symptoms) Resume home medication once reconciled 6. CAD (coronary artery disease) (I25.10: Atherosclerotic heart disease of [place] coronary artery without angina pectoris) No obvious anginal symptoms. Resume home medication once reconciled 7. Hyperlipidemia (E78.5: Hyperlipidemia, unspecified) Resume home statin dose once reconciled 8. Hypertension (I10: Essential (primary) hypertension) Hydralazine iv prn. see orders. Resume home medications once reconciled. 9. DVT prophylaxis (Z29.9: Encounter for prophylactic measures, unspecified) SCD, heparin 10. Rib contusion (S20.219A: Contusion of unspecified front wall of thorax, initial encounter) Alcohol abuse (F10.10: Alcohol abuse, uncomplicated) Anticipated stay greater than 2 midnights due to above Extracted from: Title:ED Note Author:Aparna Turcios PA-C Date:12/15/21 1. Acute alcohol intoxicatio n (F10.929: Alcohol use, unspecified with intoxication, unspecified) 2. Alcohol abuse (F10.10: Alcohol abuse, uncomplicated) 3. Frequent falls (R29.6: Repeated falls) 4. Hypokalemia (E87.6: Hypokalemia) 5. Rib contusion (S20.219A: Contusion of unspecified front wall of thorax, initial encounter) 6. Benign prostate hyperplasia (N40.0: Benign prostatic hyperplasia without lower urinary tract symptoms) 7. CAD (coronary artery disease) (I25.10: Atherosclerotic heart disease of [place] coronary artery without angina pectoris) 8. Hyperlipidemia (E78.5: Hyperlipidemia, unspecified) 9. Hypertension (I10: Essential (primary) hypertension) 10. Hyponatremia (E87.1: Hypo-osmolality and hyponatremia) 11. DVT prophylaxis (Z29.9: Encounter for prophylactic measures, unspecified) Orders: Sodium Chloride 0.9% intravenous solution, Soln-IV, Misc, Once, Stop date 12/15/21 0:52:52 EDT, Physician Stop, 12/15/21 0:52:52 EDT ED Physician consult Hospitalist for continued care Patient was interviewed. He is a poor historian and really unable to provide much information. Most of the information was provided by the EMS services. Patient was examined. Appropriate work-up was performed as per ATLS protocol. Patient's potassium level was 3.1 and he was given p.o. replacement. Patient's alcohol level is 433. The remainder of the work-up is still pending. I have endorsed this patient to attending ER physician Dr Zapata Future Appointments Appointment Date:01/01/2022 01:00:00 PM Scheduled Provider:Leo GARZA Location:[facility] Appointment Type: Hospital Follow Up w/TCM Future Scheduled Tests Laboratory* Basic Metabolic Panel 08/09/21 [facility]06-01-2022 Evaluation + Plan noteExtracted from: Title:ED Note Author:Moody Mcclain DO Date: Acute alcohol intoxication ( F10.929: Alcohol use, unspecified with intoxication, unspecified) Chronic shortness of breath (R06.02: Shortness of breath) Orders: Sodium Chloride 0.9% intravenous solution 1,000 mL, 1,000 mL, IV, 999 mL/hr, STAT, Start date 12/11/21 23:58:00 EDT, 1 hour(s), Total volume (mL): 1,000, 80.5 kg, 2.04, m2 Automated Diff B-Type Natriuretic Peptide Basic Metabolic Panel CBC w/ Auto Diff ECG 12 Lead Adult ED Cardiac Monitoring eGFR Ethanol Level Extra SST Tube Hepatic Function Panel Oxygen Saturation Oxygen Therapy PT & PTT Saline Lock Insert Troponin 0 Hr. Troponin 3 Hr. UA With Cult Reflex XR Chest Single View Addendum by Jodi Goff, As trit H on December 12, 2021 09:00:47 EDT The care of the patient was transitioned to [place] upon shift change follow-up with sobering up or discharged home with his . His is coming at 8 AM to pick him up. The patient has presented for bad smell urine. The urine shows no infection. The patient is intoxicated. His alcohol level was 400. The patient states that his alcohol level is all the time that way. The came to the emergency room and the patient is being discharged home with his . They will follow-up with chemical dependency and his primary care. Future Appointments Appointment Date:01/01/2022 01:00:00 PM Scheduled Provider:Leo GARZA Location:[facility] Appointment Type: Hospital Follow Up w/TCM Future Scheduled Tests Laboratory* Basic Metabolic Panel 08/09/21 [facility]06-01-2022 Hospital Discharge instructions Patient Education 12/12/2021 06:32:18 Shortness of Breath, Adult Shortness of Breath, Adult Shortness of breath is when a person has trouble breathing enough air or when a person feels like she or he is having trouble breathing in enough air. Shortness of breath could be a sign of a medicalproblem. Follow these instructions at home: Pay attention to any changes in your symptoms. Do not use any products that contain nicotine or tobacco, such as cigarettes, e- cigarettes, and chewing tobacco. Do not smoke. Smoking is a common cause of shortness of breath. If you need help quitting, ask yourhealth care provider. Avoid things that can irritate your airways, such as: ?Mold. ?Dust. ?Air pollution. ?Chemical fumes. ?Things that can cause allergy symptoms (allergens), if you have allergies. Keep your living space clean and free of mold and dust. Rest as needed. Slowly return to your usual activities. Take esyd-rnh-uivkucb and prescription medicines only as told by your health care provider. This includes oxygen therapy and inhaled medicines. Keep all follow-up visits as told by your health care provider. This is important. Contact a health care provider if: Your condition does not improve as soon as expected. You have a hard time doing your normal activities, even after you rest. You have new symptoms. Get help right away if: Your shortness of breath gets worse. You have shortness of breath when you are resting. You feel light-headed or you faint. You have a cough that is not controlled with medicines. You cough up blood. You have pain with breathing. You have pain in your chest, arms, shoulders, or abdomen. You have a fever. You cannot walk up stairs or exercise the way that you normally do. These symptoms may represent a serious problem that is an emergency. Do not wait to see if the symptoms will go away. Get medical help right away. Call your local emergency services (911 in the [place] Do not drive yourself to the hospital. Summary Shortness of breath is when a person has trouble breathing enough air. It can be a sign of a medical problem. Avoid things that irritate your lungs, such as smoking, pollution, mold, and dust. Pay attention to changes in your symptoms and contact your health care provider if you have a hard time completing daily activities because of shortness of breath. This information is not intended to replace advice given to you by your health care provider. Make sure you discuss any questions you have with your health care provider. Document Released: 03/25/2002 Document Revised: 11/30/2018 Document Reviewed: 11/30/2018 [employer] Patient Education 2020 [employer]. 12/12/2021 06:32:18 Alcohol Intoxication Alcohol Intoxication Alcohol intoxication occurs when a person no longer thinks clearly or functions well (becomes impaired) after drinking alcohol. Intoxication can occur with just one drink. The legal definition of alcohol intoxication depends on the amount of alcohol in the blood (blood alcohol concentration, MIKE). MIKE of 80 100 mg/dL or higher is commonly considered legally intoxicated. The level of impairment depends on: The amount of alcohol the person had. The person's age, gender, and weight. How often the person drinks. Whether the person has other medical conditions, such as diabetes, seizures, or a heart condition. Alcohol intoxication can range from mild to severe. The condition can be dangerous, especially if the person: Also took certain drugs or prescription medicines. Drinks a large amount of alcohol in a short period of time (binge drinks). ?For women, binge drinking is having four or more drinks at one time. ?For men, binge drinking is having five or more drinks at one time. If you or anyone around you appears intoxicated, speak up and act. What are the causes? This condition is caused by drinking alcohol. What increases the risk? The following factors may make you more likely to develop this condition: Peer pressure in young adults. Difficulty managing stress. History of drug or alcohol abuse. Combining alcohol with drugs. Family history of drug or alcohol abuse. Low body weight. Binge drinking. What are the signs or symptoms? Symptoms of alcohol intoxication can vary from person to person. Symptoms can be mild, moderate, orsevere. Symptoms of mild alcohol intoxication may include: Feeling relaxed or sleepy. Having mild difficulty with coordination, speech, memory, or attention. Symptoms of moderate alcohol intoxication may include: Extreme emotions, like anger or sadness. Moderate difficulty with coordination, speech, memory, or attention. Symptoms of severe alcohol intoxication may include: Severe difficulty with coordination, speech, memory, or attention. Passing out. Vomiting. Confusion. Slow breathing. Coma. Intoxication can change quickly from mild to severe. It can cause coma or , especially in people who are not exposed to alcohol often. How is this diagnosed? Your health care provider will ask you how much alcohol you drank and what kind you had. Intoxication may also be diagnosed based on: Your symptoms and medical history. A physical exam. A blood test that measures MIKE. A smell of alcohol on your breath. How is this treated? Treatment for alcohol intoxication may include: Being monitored in an emergency department, hospital, or treatment center until your MIKE comes downand it is safe for you to go home. IV fluids to prevent or treat loss of fluid in the body (dehydration). Medicine to treat nausea or vomiting or to get rid of alcohol in the body. Counseling (brief intervention) about the dangers of using alcohol. Treatment for substance use disorder. Oxygen therapy or a breathing machine (ventilator). Long-term (chronic) exposure to alcohol can have long-term effects on your brain, heart, and gastrointestinal system. These effects can be serious and may also require treatment. Follow these instructions at home: Eating and drinking Do not drink alcohol if: ?Your health care provider tells you not to drink. ?You are , may be , or are planning to become . ?You are under the legal drinking age (21 years old in the [place] ?You are taking medicines that should not be taken with alcohol. ?You have a medical condition, and alcohol makes it worse. ?You need to drive or perform activities that require you to be alert. ?You have substance use disorder. Ask your health care provider if alcohol is safe for you. If your health care provider allows you to drink alcohol, limit how much you have. You may drink: ?0 1 drink a day for women. ? 0 2 drinks a day for men. ?Be aware of how much alcohol is in your drink. In the [place] one drink equals one 12 oz bottle of beer (355 mL), one 5 oz glass of wine (148 mL), or one 1 oz shot of hard liquor (44 mL). Avoid drinking alcohol on an empty stomach. Stay hydrated. Drink enough fluid to keep your urine pale yellow. Avoid caffeine because it can dehydrate you. Avoid drinking more than one drink per hour. When having multiple drinks, drink water or a non-alcoholic beverage between alcoholic drinks. General instructions Take gmxh-tte-vhzbhmu and prescription medicines only as told by your health care provider. Do not drive after drinking any amount of alcohol. Plan for a designated haul truck driver or another way to go home. Have someone responsible stay with you while you are intoxicated. You should not be left alone. Keep all follow-up visits as told by your health care provider. This is important. Contact a health care provider if: You do not feel better after a few days. You have problems at work, at school, or at home due to drinking. Get help right away if: You have any of the following: ?Moderate to severe trouble with coordination, speech, memory, or attention. ?Trouble staying awake. ?Severe confusion. ?A seizure. ?Light-headedness. ?Fainting. ?Vomiting bright red blood or material that looks like coffee grounds. ?Bloody stool (feces). The blood may make your stool bright red, black, or tarry. It may also smellbad. ?Shakiness when trying to stop drinking. ?Thoughts about hurting yourself or others. If you ever feel like you may hurt yourself or others, or have thoughts about taking your own life,get help right away. You can go to your nearest emergency department or call: Your local emergency services (911 in the [place] A suicide crisis helpline, such as the National Suicide Prevention Lifeline at . Thisis open 24 hours a day. Summary Alcohol intoxication occurs when a person no longer thinks clearly or functions well after drinkingalcohol. If your health care provider says that alcohol is safe for you, limit alcohol intake to no more than 1 drink a day for women (no drinks if you are ) and 2 drinks a day for men. One drink equals 12 oz of beer, 5 oz of wine, or 1 oz of hard liquor. Contact your health care provider if drinking has caused you problems at work, school, or home. Get help right away if you have thoughts about hurting yourself or others. This information is not intended to replace advice given to you by your health care provider. Make sure you discuss any questions you have with your health care provider. Document Released: 04/09/2006 Document Revised: 10/20/2018 Document Reviewed: 10/20/2018 [employer] Patient Education 2020 [employer]. 12/12/2021 06:32:18 Alcohol Abuse and Nutrition Alcohol Abuse and Nutrition Alcohol abuse is any pattern of alcohol consumption that harms your health, relationships, or work.Alcohol abuse can cause poor nutrition (malnutrition or malnourishment) and a lack of nutrients (nutrient deficiencies), which can lead to more complications. Alcohol abuse brings malnutrition and nutrient deficiencies in two ways: It causes your liver to work abnormally. This affects how your body divides (breaks down) and absorbs nutrients from food. It causes you to eat poorly. Many people who abuse alcohol do not eat enough carbohydrates, protein, fat, vitamins, and minerals. Nutrients that are commonly lacking (deficient) in people who abuse alcohol include: Vitamins. ?Vitamin A. This is needed for your vision, metabolism, and ability to fight off infections (immunity). ?B vitamins. These include folate, thiamine, and niacin. These are needed for new cell growth. ?Vitamin C. This plays an important role in wound healing, immunity, and helping your body to absorb iron. ?Vitamin D. This is necessary for your body to absorb and use calcium. It is produced by your liver, but you can also get it from food and from sun exposure. Minerals. ?Calcium. This is needed for healthy bones as well as heart and blood vessel (cardiovascular) function. ?Iron. This is important for blood, muscle, and nervous system functioning. ?Magnesium. This plays an important role in muscle and nerve function, and it helps to control blood sugar and blood pressure. ?Zinc. This is important for the normal functioning of your nervous system and digestive system (gastrointestinal tract). If you think that you have an alcohol dependency problem, or if it is hard to stop drinking becauseyou feel sick or different when you do not use alcohol, talk with your health care provider or another health professional about where to get help. Nutrition is an essential factor in therapy for alcohol abuse. Your health care provider or diet and it technical support specialist (dietitian) will work with you to design a plan that can help to restore nutrients to your body and prevent the risk of complications. What is my plan? Your dietitian may develop a specific eating plan that is based on your condition and any other problems that you have. An eating plan will commonly include: A balanced diet. ?Grains: 6 8 oz (170 227 g) a day. Examples of 1 oz of whole grains include 1 cup of whole-wheat cereal, cup of brown rice, or 1 slice of whole-wheat bread. ?Vegetables: 2 3 cups a day. Examples of 1 cup of vegetables include 2 medium carrots, 1 large tomato, or 2 stalks of celery. ?Fruits: 1 2 cups a day. Examples of 1 cup of fruit include 1 large banana, 1 small apple, 8 large strawberries, or 1 large orange. ?Meat and other protein: 5 6 oz (142 170 g) a day. ?A cut of meat or fish that is the size of a deck of cards is about 3 4 oz. ?Foods that provide 1 oz of protein include 1 egg, cup of nuts or seeds, or 1 tablespoon (16 g) of peanut butter. ?Dairy: 2 3 cups a day. Examples of 1 cup of dairy include 8 oz (230 mL) of milk, 8 oz (230 g) of yogurt, or 1 oz (44 g) of natural cheese. Vitamin and mineral supplements. What are tips for following this plan? Eat frequent meals and snacks. Try to eat 5 6 small meals each day. Take vitamin or mineral supplements as recommended by your dietitian. If you are malnourished or if your dietitian recommends it: ?You may follow a high-protein, high-calorie diet. This may include: ?2,000 3,000 calories (kilocalories) a day. ?70 100 g (grams) of protein a day. ?You may be directed to follow a diet that includes a complete nutritional supplement beverage. This can help to restore calories, protein, and vitamins to your body. Depending on your condition, youmay be advised to consume this beverage instead of your meals or in addition to them. Certain medicines may cause changes in your appetite, taste, and weight. Work with your health careprovider and dietitian to make any changes to your medicines and eating plan. If you are unable to take in enough food and calories by mouth, your health care provider may recommend a feeding tube. This tube delivers nutritional supplements directly to your stomach. Recommended foods Eat foods that are high in molecules that prevent oxygen from reacting with your food (antioxidants). These foods include grapes, berries, nuts, green tea, and dark green or orange vegetables. Eatingthese can help to prevent some of the stress that is placed on your liver by consuming alcohol. Eat a variety of fresh fruits and vegetables each day. This will help you to get fiber and vitaminsin your diet. Drink plenty of water and other clear fluids, such as apple juice and broth. Try to drink at least 48 64 oz (1.5 2 L) of water a day. Include foods fortified with vitamins and minerals in your diet. Commonly fortified foods include milk, orange juice, cereal, and bread. Eat a variety of foods that are high in omega-3 and omega-6 fatty acids. These include fish, nuts and seeds, and soybeans. These foods may help your liver to recover and may also stabilize your mood. If you are a vegetarian: ?Eat a variety of protein-rich foods. ?Pair whole grains with plant-based proteins at meals and snack time. For example, eat rice with beans, put peanut butter on whole-grain toast, or eat oatmeal with sunflower seeds. The items listed above may not be a complete list of foods and beverages you can eat. Contact a dietitian for more information. Foods to avoid Avoid foods and drinks that are high in fat and sugar. Sugary drinks, salty snacks, and candy contain empty calories. This means that they lack important nutrients such as protein, fiber, and vitamins. Avoid alcohol. This is the best way to avoid malnutrition due to alcohol abuse. If you must drink, drink measured amounts. Measured drinking means limiting your intake to no more than 1 drink a day for non women and 2 drinks a day for men. One drink equals 12 oz (355 mL) of beer, 5 oz (148 mL) of wine, or 1 oz (44 mL) of hard liquor. Limit your intake of caffeine. Replace drinks like coffee and black tea with decaffeinated coffee and decaffeinated herbal tea. The items listed above may not be a complete list of foods and beverages you should avoid. Contact a dietitian for more information. Summary Alcohol abuse can cause poor nutrition (malnutrition or malnourishment) and a lack of nutrients (nutrient deficiencies), which can lead to more health problems. Common nutrient deficiencies include vitamin deficiencies (A, B, C, and D) and mineral deficiencies(calcium, iron, magnesium, and zinc). Nutrition is an essential factor in therapy for alcohol abuse. Your health care provider and dietitian can help you to develop a specific eating plan that includes a balanced diet plus vitamin and mineral supplements. This information is not intended to replace advice given to you by your health care provider. Make sure you discuss any questions you have with your health care provider. Document Released: 04/24/2006 Document Revised: 10/19/2019 Document Reviewed: 03/17/2018 [employer] Patient Education 2020 [employer]. 12/12/2021 06:32:18 Alcohol Abuse and Dependence Information, Adult Alcohol Abuse and Dependence Information, Adult Alcohol is a widely available drug. People drink alcohol in different amounts. People who drink alcohol very often and in large amounts often have problems during and after drinking. They may developwhat is called an alcohol use disorder. There are two main types of alcohol use disorders: Alcohol abuse. This is when you use alcohol too much or too often. You may use alcohol to make yourself feel happy or to reduce stress. You may have a hard time setting a limit on the amount you drink. Alcohol dependence. This is when you use alcohol consistently for a period of time, and your body changes as a result. This can make it hard to stop drinking because you may start to feel sick or feel different when you do not use alcohol. These symptoms are known as withdrawal. How can alcohol abuse and dependence affect me? Alcohol abuse and dependence can have a negative effect on your life. Drinking too much can lead toaddiction. You may feel like you need alcohol to function normally. You may drink alcohol before work in the morning, during the day, or as soon as you get home from work in the evening. These actions can result in: Poor work performance. Job loss. Financial problems. Car crashes or criminal charges from driving after drinking alcohol. Problems in your relationships with friends and family. Losing the trust and respect of coworkers, friends, and family. Drinking heavily over a long period of time can permanently damage your body and brain, and can cause lifelong health issues, such as: Damage to your liver or pancreas. Heart problems, high blood pressure, or stroke. Certain cancers. Decreased ability to fight infections. Brain or nerve damage. Depression. Early (premature) . If you are careless or you crave alcohol, it is easy to drink more than your body can handle (overdose). Alcohol overdose is a serious situation that requires hospitalization. It may lead to permanent injuries or . What can increase my risk? Having a family history of alcohol abuse. Having depression or other mental health conditions. Beginning to drink at an early age. Binge drinking often. Experiencing trauma, stress, and an unstable home life during childhood. Spending time with people who drink often. What actions can I take to prevent or manage alcohol abuse and dependence? Do not drink alcohol if: ?Your health care provider tells you not to drink. ?You are , may be , or are planning to become . If you drink alcohol: ?Limit how much you use to: ?0 1 drink a day for women. ?0 2 drinks a day for men. ?Be aware of how much alcohol is in your drink. In the [place] one drink equals one 12 oz bottle of beer (355 mL), one 5 oz glass of wine (148 mL), or one 1 oz glass of hard liquor (44 mL). Stop drinking if you have been drinking too much. This can be very hard to do if you are used to abusing alcohol. If you begin to have withdrawal symptoms, talk with your health care provider or a person that you trust. These symptoms may include anxiety, shaky hands, headache, nausea, sweating, ornot being able to sleep. Choose to drink nonalcoholic beverages in social gatherings and places where there may be alcohol. Activity Spend more time on activities that you enjoy that do not involve alcohol, like hobbies or exercise. Find healthy ways to cope with stress, such as exercise, meditation, or spending time with people you care about. General information Talk to your family, coworkers, and friends about supporting you in your efforts to stop drinking. If they drink, ask them not to drink around you. Spend more time with people who do not drink alcohol. If you think that you have an alcohol dependency problem: ?Tell friends or family about your concerns. ?Talk with your health care provider or another health professional about where to get help. ?Work with a therapist and a chemical dependency counselor. ?Consider joining a support group for people who struggle with alcohol abuse and dependence. Where to find support Your health care provider. SMART Recovery: www.smartrecovery.org Therapy and support groups Local treatment centers or chemical dependency counselors. Local AA groups in your community: www.aa.org Where to find more information Centers for Disease Control and Prevention: www.cdc.gov National Donie on Alcohol Abuse and Alcoholism: www.niaaa.nih.gov Alcoholics Anonymous (AA): www.aa.org Contact a health care provider if: You drank more or for longer than you intended on more than one occasion. You tried to stop drinking or to cut back on how much you drink, but you were not able to. You often drink to the point of vomiting or passing out. You want to drink so badly that you cannot think about anything else. You have problems in your life due to drinking, but you continue to drink. You keep drinking even though you feel anxious, depressed, or have experienced memory loss. You have stopped doing the things you used to enjoy in order to drink. You have to drink more than you used to in order to get the effect you want. You experience anxiety, sweating, nausea, shakiness, and trouble sleeping when you try to stop drinking. Get help right away if: You have thoughts about hurting yourself or others. You have serious withdrawal symptoms, including: ?Confusion. ?Racing heart. ?High blood pressure. ?Fever. If you ever feel like you may hurt yourself or others, or have thoughts about taking your own life,get help right away. You can go to your nearest emergency department or call: Your local emergency services (911 in the [place] A suicide crisis helpline, such as the National Suicide Prevention Lifeline at . Thisis open 24 hours a day. Summary Alcohol abuse and dependence can have a negative effect on your life. Drinking too much or too often can lead to addiction. If you drink alcohol, limit how much you use. If you are having trouble keeping your drinking under control, find ways to change your behavior. Hobbies, calming activities, exercise, or support groups can help. If you feel you need help with changing your drinking habits, talk with your health care provider, a good friend, or a therapist, or go to an AA group. This information is not intended to replace advice given to you by your health care provider. Make sure you discuss any questions you have with your health care provider. Document Released: 06/24/2017 Document Revised: 10/19/2019 Document Reviewed: 09/07/2019 [employer] Patient Education 2020 [employer]. Follow Up Care 12/11/2021 23:51:41 With:Chemical Dependency: Address:Unknown When:12/15/2021 06:32:11 With:Leo CAMERON Address: [address] [place] [phone] [facility] (1) When:12/15/2021 06:32:06 Comments:Call the office of your primary care doctor to arrange for follow-up within the above-stated timeframe. Follow-up with your primary care doctor about this ED visit. You should review your labs, imaging, and diagnoses from this ED visit with your primary care physician. If you were prescribed medications you should discuss possible side-effects and drug interactions with your pharmacist. Call 911 or go to the nearest Emergency Department if you develop any new or worsening symptoms. [facility]05-30-2022 Hospital Discharge instructions Patient Education 12/10/2021 11:10:53 Ataxia Ataxia Ataxia is a condition that causes unsteadiness when walking and standing, poor coordination of bodymovements, and difficulty keeping a straight (upright) posture. It occurs because of a problem withthe part of the brain that controls coordination and stability (cerebellum). Ataxia can develop later in life (acquired ataxia), during your 20s or 30s or even into your 60s orlater. This type of ataxia develops when another medical condition, such as a stroke, damages the cerebellum. Ataxia also may be present early in life (non-acquired ataxia). There are two main types of non-acquired ataxia: Congenital. This type is present at . Hereditary. This type is passed from parent to child. The most common form of hereditary non-acquired ataxia is Friedreich ataxia. What are the causes? Acquired ataxia may be caused by: Changes in the nervous system (neurodegenerative changes). Changes throughout the body (systemic disorders). A lot of exposure to: ?Certain medicines such as phenytoin and lithium. ?Solvents. These are cleaning fluids such as paint thinner, nail botswanan remover, hat cleaner, and degreasers. Alcohol abuse (alcoholism). Medical conditions, such as: ?Celiac disease. ?Hypothyroidism. ?A lack (deficiency) of vitamin E, vitamin B12, or thiamine. ?Brain tumors. ?Multiple sclerosis. ?Cerebral palsy. ?Stroke. ?Paraneoplastic syndromes. ?Viral infections. ?Head injury. ?Malnutrition. Congenital and hereditary ataxia are caused by problems that are present in genes before . What are the signs or symptoms? Signs and symptoms of ataxia vary depending on the cause. They may include: Being unsteady. Walking with the legs wide apart (wide stance) to keep one's balance. Uncontrolled shaking (tremor). Poorly coordinated body movements. Difficulty maintaining an upright posture. Fatigue. Changes in speech. Changes in vision. Involuntary eye movements (nystagmus). Difficulty swallowing. Difficulty writing. Muscle tightening that you cannot control (muscle spasms). How is this diagnosed? Ataxia may be diagnosed based on: Your personal and family medical history. A physical exam. Imaging tests, such as a CT scan or MRI. Spinal tap (lumbar puncture). This procedure involves using a needle to take a sample of the fluid around your brain and spinal cord. Genetic testing. How is this treated? The underlying condition that causes your ataxia needs to be treated. If the cause is a brain tumor, you may need surgery. Treatment also focuses on helping you live with ataxia and improving your quality of life (supportive treatments). This may involve: Learning ways to improve coordination and move around more carefully (physical therapy). Learning ways to improve your ability to do daily tasks, such as bathing and feeding yourself (occupational therapy). Using devices to help you move around, eat, or communicate (assistive devices), such as a walker, modified eating utensils, and communication aids. Learning ways to improve speech and swallowing (speech therapy). Follow these instructions at home: Preventing falls Lie down right away if you become very unsteady, dizzy, or nauseous, or if you feel like you are going to faint. Do not get up until all of those feelings pass. Keep your home well-lit. Use night-lights as needed. Remove tripping hazards, such as rugs, cords, and clutter. Install grab bars by the toilet and in the tub and shower. Use assistive devices such as a cane, walker, or wheelchair as needed to keep your balance. General instructions Do not drink alcohol. Ask your health care provider what activities are safe for you, and what activities you should avoid. Take wwvq-alp-wsrrcvd and prescription medicines only as told by your health care provider. Get help right away if you: Have unsteadiness that suddenly worsens. Have any of these: ?Severe headaches. ?Chest pain. ?Abdominal pain. ?Weakness or numbness on one side of your body. ?Vision problems. ?Difficulty speaking. ?An irregular heartbeat. ?A very fast pulse. Feel confused. Summary Ataxia is a condition that causes unsteadiness when walking and standing, poor coordination of bodymovements, and difficulty keeping a straight (upright) posture. Ataxia occurs because of a problem with the part of the brain that controls coordination and stability (cerebellum). The underlying condition that causes your ataxia needs to be treated. Treatment also focuses on helping you live with ataxia and improving your quality of life (supportive treatments). Lie down right away if you become very unsteady, dizzy, or nauseous, or if you feel like you are going to faint. This information is not intended to replace advice given to you by your health care provider. Make sure you discuss any questions you have with your health care provider. Document Released: 01/25/2015 Document Revised: 06/12/2018 Document Reviewed: 05/01/2018 [employer] Patient Education 2020 [employer]. [facility] [place] 05-27-2022 Evaluation + Plan noteExtracted from: Title:Discharge Note Author:PATSY NEUMANN-Rosemary MOYA Date:12/07/21 Hemodynamically stable condi tion Discharged to - Home with family care Discharge Diet(s): Regular, Fat Modified- 50 gram, Low Sodium- 2000 mg (12/07/21 11:06:00) Prescriptions AirDuo RespiClick 113 mcg-14 mcg/inh inhalation powder, 1 puff, Inhalation, BID, 5 refills albuterol HFA 90 mcg/inh MDI, 2 puff(s), Inhalation, q4hr, PRN, 5 refills carvedilol 25 mg Tab, 25 mg= 1 tab(s), Oral, BID, 5 refills, Not taking ferrous sulfate 325 mg Tab, 325 mg= 1 tab(s), Oral, Daily, 3 refills, Not taking fluticasone 0.05 mg/inh Nasal Muse, 1 spray(s), Nasal, BID, 11 refills folic acid 1 mg Tab, 1 mg= 1 tab(s), Oral, Daily, Not taking Multi Vitamins oral tablet, 1 tab(s), Oral, Daily, Not taking nicotine 21 mg-14 mg-7 mg transdermal film, extended release, 1 EA, TransDermal, Daily nitroglycerin 0.4 mg sublingual Tab, 0.4 mg= 1 tab(s), SubLingual, q5min, PRN, 11 refills oxybutynin 5 mg Tab, 5 mg= 1 tab(s), Oral, BID, 5 refills, Not taking oxyCODONE 5 mg Tab, 5 mg= 1 tab(s), Oral, q6hr, PRN pravastatin 40 mg Tab, 40 mg= 1 tab(s), Oral, Daily, 3 refills, Not taking tamsulosin 0.4 mg Cap, 0.4 mg= 1 cap(s), Oral, Bedtime, 3 refills, Not taking thiamine 100 mg Tab, 100 mg= 1 tab(s), Oral, Daily, Not taking traZODONE 50 mg Tab, 50 mg= 1 tab(s), Oral, Once a day (at bedtime), Pre-arrival medication Home acetaminophen 325 mg Tab, 650 mg= 2 tab(s), Oral, q6hr, PRN aspirin 81 mg Oral EC Tab, 81 mg= 1 tab(s), Oral, Daily bumetanide 2 mg Tab, 2 mg= 1 tab(s), Oral, Daily, Not taking cholecalciferol 1000 intl units (25 mcg) oral tablet, 25 mcg= 1 tab(s), Oral, Daily, Not taking DuoNeb 2.5 mg-0.5 mg/3 mL Soln-Inh, 3 mL, Inhalation, QID hydroxychloroquine 200 mg Tab, 200 mg= 1 tab(s), Oral, q12hr, Not taking leflunomide 10 mg oral tablet, 10 mg= 1 tab(s), Oral, Daily, Not taking potassium chloride 20 mEq ER Tab, 40 mEq= 2 tab(s), Oral, BID With When Contact Information Leo CAMERON In 3 days 12/09/2021 EDT [address] [place] [address]- Business (1) Additional Instructions: Call the office of your primary care doctor to arrange for follow-up within the above-stated timeframe. Follow-up with your primary care doctor about this ED visit. You should review your labs, imaging, and diagnoses from this ED visit with your primary care physician. If you were prescribed medications you should discuss possible side-effects and drug interactions with your pharmacist. Call 911 or go to the nearest Emergency Department if you develop any new or worsening symptoms. Return to the ED at any time to continue work-up including your MRI. Fall Prevention in the Home, Adult, Otmr-dd-Oiea Alcohol Withdrawal Syndrome, Yejh-km-Gmmn Alcohol Use Disorder Alcohol Intoxication Extracted from: Title:Admission H & P Author:Liz GAY enee Date:12/06/21 1. Stroke-like symptoms (R29 .90: Unspecified symptoms and signs involving the nervous system) In the setting of acute alcohol intoxication -CT of head reviewed: No acute process -Consult to neuro - pending MRI results -MRI of brain - pending -MRA of brain - pending MRI results -Echo - pending MRI results -Carotid US - pending -Lipid panel - pending * IF stroke positive = high intensity statin -UA - pending -PT/OT - pending -ST - not ordered as pt. was eating chips/pretzels in ED -Neuro checks - pending -No driving until cleared from neuro at outpatient f/u -Allow for permissive hypertension times 24 hours - Tx. for sbp > 220, thereafter sbp < 140, Dbp < 90 2. Acute alcohol intoxication (F10.929: Alcohol use, unspecified with intoxication, unspecified) Pt. states he has NO intent to stop alcohol use -CIWA protocol w/ supplement replacement/precautions 3. Iron deficiency anemia (D50.9: Iron deficiency anemia, unspecified) Baseline hgb level 12.0 -No acute blood loss, hemodynamically stable -Trend labs 4. Thrombocytopenia (D69.6: Thrombocytopenia, unspecified) Baseline plt level 140 range -No acute blood loss, hemodynamically stable -Trend labs 5. Hyponatremia (E87.1: Hypo-osmolality and hyponatremia) Acute on chronic -Likely 2/2 chronic etoh use -Asymptomatic -Banana bag x1 -TSH - pending -Trend BMP 6. Hypokalemia (E87.6: Hypokalemia) Replete K/Mag -Trend labs 7. Chronic hypoxemic respiratory failure (J96.11: Chronic respiratory failure with hypoxia) Home 02 - 2lpm 24/7 -Supplemental 02 8. COPD - Chronic obstructive pulmonary disease (J44.9: Chronic obstructive pulmonary disease, unspecified) Stable -CXR: No acute process -Med nebs, flutter, supplemental 02 -Awaiting med rec 9. CAD (coronary artery disease) (I25.10: Atherosclerotic heart disease of [place] coronary artery without angina pectoris) s/p [place], denies cardiac stents -Awaiting med rec 10. Chronic diastolic heart failure (I50.32: Chronic diastolic (congestive) heart failure) 2020 echo: Mild LVH, EF 65%, stage II diastolic dysfunction, trivial TR, RVSP 39 mmHg, mild pulmonary hypertension, when compared to 2019 echo pulmonary pressures have decreased from 51-39. -Awaiting med rec 11. Hypertension (I10: Essential (primary) hypertension) -Awaiting med rec 12. Hyperlipidemia (E78.5: Hyperlipidemia, unspecified) -Awaiting med rec 13. Chronic pain (G89.29: Other chronic pain) -Awaiting med rec 14. Neuropathy (G62.9: Polyneuropathy, unspecified) -Awaiting med rec 15. Rheumatoid arthritis (M06.9: Rheumatoid arthritis, unspecified) -Awaiting med rec 16. Benign prostate hyperplasia (N40.0: Benign prostatic hyperplasia without lower urinary tract symptoms) -Awaiting med rec 17. Insomnia (G47.00: Insomnia, unspecified) -Awaiting med rec 18. Noncompliance with medication regimen (Z91.14: Patient's other noncompliance with medication regimen) Pt. educated on the need for medication and medical care plan compliance, the need for smoking and alcohol cessation, patient verbalizes he has no intent to stop smoking or drinking alcohol. -Pt. is disheveled, unkept, bilateral soles of feet are black with dirt recommend evaluation of clinical environment -Consult SW - pending 19. DVT prophylaxis (Z29.9: Encounter for prophylactic measures, unspecified) -Heparin sq with early ambulation Orders: acetaminophen, 650 mg = 2 tab(s), Tab, Oral, q6hr PRN Pain, Routine, Start date 12/06/21 9:08:00 EDT, 12/06/21 9:08:00 EDT albuterol, 2.5 mg = 3 mL, Soln-Inh, NEB, q2hr PRN Shortness of breath or wheezing, Routine, Start date 12/06/21 9:34:00 EDT, 12/06/21 9:34:00 EDT albuterol-ipratropium, 3 mL, Soln-Inh, Inhalation, QID, STAT, Start date 12/06/21 9:34:00 EDT aspirin, 81 mg = 1 tab(s), Tab-EC, Oral, Daily, NOW, Start date 12/06/21 9:08:00 EDT, 12/06/21 9:08:00 EDT folic acid, 1 mg = 1 tab(s), Tab, Oral, Daily, Routine, Start date 12/07/21 9:00:00 EDT, 12/06/21 9:27:00 EDT heparin, 5,000 unit(s) = 1 mL, Injection, SubCutaneous, BID, Routine, Start date 12/06/21 10:00:00 EDT lorazepam, 1 mg = 0.5 mL, Injection, IV Push, q1hr PRN Anxiety, Routine, Start date 12/06/21 9:27:00 EDT lorazepam, 1 mg = 1 tab(s), Tab, Oral, QID PRN Anxiety, Routine, Start date 12/06/21 9:27:00 EDT, 12/06/21 9:27:00 EDT magnesium sulfate + Generic Diluent 50 mL, 2 gram = 50 mL, Soln-IV, IV Piggyback, Once, Stop date 12/06/21 10:00:00 EDT, Routine, Start date 12/06/21 10:00:00 EDT, 25 mL/hr, Infuse over 2 hour(s) multivitamin, 1 tab(s), Tab, Oral, Daily, STAT, Start date 12/06/21 9:27:00 EDT ondansetron, 4 mg = 2 mL, Injection, IV Push, q6hr PRN Nausea, Routine, Start date 12/06/21 9:08:00 EDT, 12/06/21 9:08:00 EDT potassium chloride, 40 mEq = 2 tab(s), Tab-ER, Oral, Once, Stop date 12/06/21 9:00:00 EDT, Routine, Start date 12/06/21 9:00:00 EDT, 12/06/21 8:31:00 EDT promethazine, 25 mg = 1 tab(s), Tab, Oral, q4hr PRN Nausea/Vomiting, Routine, Start date 12/06/21 9:27:00 EDT, 12/06/21 9:27:00 EDT Sodium Chloride 0.9% intravenous solution 1,000 mL + multivitamin 10 mL + thiamine 100 mg + folic a, 1,000 mL, IV, 100 mL/hr, for 1 dose(s), Stop date 12/06/21 19:32:00 EDT, Routine, Start date 12/06/21 9:27:00 EDT, 10.1 hour(s), Total volume (mL): 1,011.2, 80.5 kg, 2.04, m2 thiamine, 100 mg = 1 tab(s), Tab, Oral, Daily, Routine, Start date 12/07/21 9:00:00 EDT, 12/06/21 9:27:00 EDT Add on Test Ambulate with Assistance Basic Metabolic Panel Below the Knee Intermittent Pneumatic Compression Device Cardiac Diet Cardiac Monitoring Clinical Donie Withdrawal Assessment Clinical Donie Withdrawal Assessment Clinical Donie Withdrawal Assessment Clinical Donie Withdrawal Assessment Communication Order Communication Order Physician to Nursing Communication Order Physician to Nursing Communication Order Physician to Nursing Consult to Volleyball Coach Drug Screen Urine Dysphagia Screen Evaluate Need For Continued Telemetry Flutter Valve Intake and Output Lipid Panel Neurological Assessment Neurological Assessment Notify Provider Notify Provider Vital Signs Notify Provider Vital Signs Occupational Therapy Evaluate Patient, Develop a Plan of Care and Implement Plan Oxygen Protocol Phosphorus Level Physical Therapy Evaluate Patient, Develop a Plan of Care and Implement Plan Precautions Precautions Precautions Precautions Precautions Pulse Oximetry Resuscitation Status - Full Stroke Education Stroke Quality Measures TSH With T4fr Reflex Turn Patient UA With Cult Reflex US Carotid Duplex Bilateral Vital Signs Vital Signs Vital Signs Vital Signs Vital Signs Weight -Plan discussed w/ patient, nursing staff and CRM. -Disposition: Patient will likely be less than 2 midnight stays for treatment of above, he is already discussing leaving AMA with the ED staff. This report was transcribed using voice recognition software. Every effort was made to ensure accuracy, however, inadvertently computerized florist designer mistakes may be present. Extracted from: Title:ED Note Author:Cem Aquino DO Date :12/06/21 Acute alcohol intoxication ( F10.929: Alcohol use, unspecified with intoxication, unspecified) Orders: Automated Diff Basic Metabolic Panel CBC w/ Auto Diff CT Head or Brain w/o Contrast eGFR Ethanol Level Troponin 0 Hr. XR Chest Single View Addendum by Moody Mcclain DO on December 06, 2021 08:28:06 EDT Patient signed out to me by Dr. Aquino. Complaint of ataxia, falling to the right. Unfortunately he showed up to the emergency department intoxicated last night making evaluation for ataxia difficult. CT scan showed chronic small vessel disease. Sober time is 2 PM. Given his complaint of ataxia, known small vessel disease and risk factors we will admit him for stroke rule out. Discussed case with Dr. Martinez who agrees admit the patient to his service. He asked that an MRI be placed in the emergency department to get it done as soon as possible. He will follow results. Moody Mcclain DO Addendum by Moody Mcclain DO on December 06, 2021 13:56:51 EDT Patient was admitted with MRI pending. Patient refused the MRI due to claustrophobia. He was offered premedication for the MRI and declined. Given that he is intoxicated AGAINST MEDICAL ADVICE at this time. We will wait till the patient is clinically sober. 1357-patient seen and examined at the bedside. No focal neurologic deficits. ANO x4. He is now clinically sober. Patient reports he would like to leave AGAINST MEDICAL ADVICE. He does not want to obtain an MRI. He was given paperwork. He is instructed to follow-up with his primary care physician. Moody Mcclain DO Addendum by Moody Mcclain DO on December 06, 2021 13:58:21 EDT I was called to the bedside and informed that the patient would like to leave AGAINST MEDICAL ADVICE at this time. The patient is oriented to person, place, and time, demonstrating all four garza elements of capacity to make decisions regarding the medical care offered. The patient speaks coherently and exhibits no evidence of having an altered level of consciousness or alcohol or drug intoxication to a point that would impair ability to delineate a choice. The patient demonstrates understanding and appreciation of the relevant information of the nature of their medical condition, as well as the risks, benefits, and treatment alternatives (including non-treatment), consequences of refusing care, and can appropriately communicate a rational reasoning about their choice of care options. Patient is aware the suspected diagnosis suggested by history and exam. The patient demonstrates understanding and appreciation of the relevant information of the nature of their medical condition, as well as the risks, benefits, and treatment alternatives (including non-treatment), consequences of refusing care, and can appropriately communicate a rational reasoning about their choice of care options. The risks of refusing recommended care that were disclosed and acknowledged by the patient include , neurologic dysfunction, permanent mental impairment, loss of limb, loss of sexual function, loss of current lifestyle, worsening of chronic condition, long-term disability. The patient understands they are welcome to return to the hospital at any time to receive the recommended care or any other care at any time, regardless of their ability to pay for such care. Discharge instructions were provided to the patient. Addendum by Moody Mcclain DO on December 06, 2021 14:38:19 EDT Patient's family member arrived to take him home. Patient attempted to get up and ambulate but is significantly ataxic and falling to the right. He could not ambulate. He is now agreeable to admission. Dr. Martinez updated. Patient is admitted to the hospital. Moody Mcclain DO Future Appointments Appointment Date:12/11/2021 02:20:00 PM Scheduled Provider:Duglas CRUZ MD Location:[facility] Appointment Type: ER/Hospital Follow Up Future Scheduled Tests Laboratory* Basic Metabolic Panel 08/09/21 [facility]05-27-2022 Hospital Discharge instructions Patient Education 12/07/2021 11:08:40 Fall Prevention in the Home, Adult, Doxi-km-Piez Fall Prevention in the Home, Adult Falls can cause injuries. They can happen to people of all ages. There are many things you can do to make your home safe and to help prevent falls. Ask for help when making these changes, if needed. What actions can I take to prevent falls? General Instructions Use good lighting in all rooms. Replace any light bulbs that burn out. Turn on the lights when you go into a dark area. Use night-lights. Keep items that you use often in tmpe-sw-lbpyh places. Lower the shelves around your home if necessary. Set up your furniture so you have a clear path. Avoid moving your furniture around. Do not have throw rugs and other things on the floor that can make you trip. Avoid walking on wet floors. If any of your floors are uneven, fix them. Add color or contrast paint or tape to clearly adriana and help you see: ?Any grab bars or handrails. ?First and last steps of stairways. ?Where the edge of each step is. If you use a stepladder: ?Make sure that it is fully opened. Do not climb a closed stepladder. ?Make sure that both sides of the stepladder are locked into place. ?Ask someone to hold the stepladder for you while you use it. If there are any pets around you, be aware of where they are. What can I do in the bathroom? Keep the floor dry. Clean up any water that spills onto the floor as soon as it happens. Remove soap buildup in the tub or shower regularly. Use non-skid mats or decals on the floor of the tub or shower. Attach bath mats securely with double-sided, non-slip rug tape. If you need to sit down in the shower, use a plastic, non-slip stool. Install grab bars by the toilet and in the tub and shower. Do not use towel bars as grab bars. What can I do in the bedroom? Make sure that you have a light by your bed that is easy to reach. Do not use any sheets or blankets that are too big for your bed. They should not hang down onto thefloor. Have a firm chair that has side arms. You can use this for support while you get dressed. What can I do in the kitchen? Clean up any spills right away. If you need to reach something above you, use a strong step stool that has a grab bar. Keep electrical cords out of the way. Do not use floor botswanan or wax that makes floors slippery. If you must use wax, use non-skid floor wax. What can I do with my stairs? Do not leave any items on the stairs. Make sure that you have a light switch at the top of the stairs and the bottom of the stairs. If you do not have them, ask someone to add them for you. Make sure that there are handrails on both sides of the stairs, and use them. Fix handrails that are broken or loose. Make sure that handrails are as long as the stairways. Install non-slip stair treads on all stairs in your home. Avoid having throw rugs at the top or bottom of the stairs. If you do have throw rugs, attach them to the floor with carpet tape. Choose a carpet that does not hide the edge of the steps on the stairway. Check any carpeting to make sure that it is firmly attached to the stairs. Fix any carpet that is loose or worn. What can I do on the outside of my home? Use bright outdoor lighting. Regularly fix the edges of walkways and driveways and fix any cracks. Remove anything that might make you trip as you walk through a door, such as a raised step or threshold. Trim any bushes or trees on the path to your home. Regularly check to see if handrails are loose or broken. Make sure that both sides of any steps have handrails. Install guardrails along the edges of any raised decks and porches. Clear walking paths of anything that might make someone trip, such as tools or rocks. Have any leaves, snow, or ice cleared regularly. Use sand or salt on walking paths during winter. Clean up any spills in your garage right away. This includes grease or oil spills. What other actions can I take? Wear shoes that: ?Have a low heel. Do not wear high heels. ?Have rubber bottoms. ?Are comfortable and fit you well. ?Are closed at the toe. Do not wear open-toe sandals. Use tools that help you move around (mobility aids) if they are needed. These include: ?Canes. ?Walkers. ?Scooters. ?Crutches. Review your medicines with your doctor. Some medicines can make you feel dizzy. This can increase your chance of falling. Ask your doctor what other things you can do to help prevent falls. Where to find more information Centers for Disease Control and PreventionMALACHI: https://cdc.gov National Donie on Aging: https://zo2rgxj.kym.nih.gov Contact a doctor if: You are afraid of falling at home. You feel weak, drowsy, or dizzy at home. You fall at home. Summary There are many simple things that you can do to make your home safe and to help prevent falls. Ways to make your home safe include removing tripping hazards and installing grab bars in the bathroom. Ask for help when making these changes in your home. This information is not intended to replace advice given to you by your health care provider. Make sure you discuss any questions you have with your health care provider. Document Released: 04/26/2010 Document Revised: 10/21/2019 Document Reviewed: 02/12/2018 [employer] Patient Education 2020 [employer]. 12/07/2021 11:08:40 Alcohol Withdrawal Syndrome, Bpvz-ov-Gnfc Alcohol Withdrawal Syndrome When a person who drinks a lot of alcohol stops drinking, he or she may have unpleasant and serioussymptoms. These symptoms are called alcohol withdrawal syndrome. This condition may be mild or severe. It can be life-threatening. It can cause: Shaking that you cannot control (tremor). Sweating. Headache. Feeling fearful, upset, grouchy, or depressed. Trouble sleeping (insomnia). Nightmares. Fast or uneven heartbeats (palpitations). Alcohol cravings. Feeling sick to your stomach (nausea). Throwing up (vomiting). Being bothered by light and sounds. Confusion. Trouble thinking clearly. Not being hungry (loss of appetite). Big changes in mood (mood swings). If you have all of the following symptoms at the same time, get help right away: High blood pressure. Fast heartbeat. Trouble breathing. Seizures. Seeing, hearing, feeling, smelling, or tasting things that are not there (hallucinations). These symptoms are known as delirium tremens (DTs). They must be treated at the hospital right away. Follow these instructions at home: Take oupe-kov-nyclacd and prescription medicines only as told by your doctor. This includes vitamins. Do not drink alcohol. Do not drive until your doctor says that this is safe for you. Have someone stay with you or be available in case you need help. This should be someone you trust.This person can help you with your symptoms. He or she can also help you to not drink. Drink enough fluid to keep your pee (urine) pale yellow. Think about joining a support group or a treatment program to help you stop drinking. Keep all follow-up visits as told by your doctor. This is important. Contact a doctor if: Your symptoms get worse. You cannot eat or drink without throwing up. You have a hard time not drinking alcohol. You cannot stop drinking alcohol. Get help right away if: You have fast or uneven heartbeats. You have chest pain. You have trouble breathing. You have a seizure for the first time. You see, hear, feel, smell, or taste something that is not there. You get very confused. Summary When a person who drinks a lot of alcohol stops drinking, he or she may have serious symptoms. Thisis called alcohol withdrawal syndrome. Delirium tremens (DTs) is a group of life-threatening symptoms. You should get help right away if you have these symptoms. Think about joining an alcohol support group or a treatment program. This information is not intended to replace advice given to you by your health care provider. Make sure you discuss any questions you have with your health care provider. Document Released: 12/16/2008 Document Revised: 06/12/2018 Document Reviewed: 03/06/2018 [employer] Patient Education 2020 [employer]. 12/07/2021 11:08:40 Alcohol Use Disorder Alcohol Use Disorder Alcohol use disorder is when your drinking disrupts your daily life. When you have this condition, you drink too much alcohol and you cannot control your drinking. Alcohol use disorder can cause serious problems with your physical health. It can affect your brain, heart, liver, pancreas, immune system, stomach, and intestines. Alcohol use disorder can increase your risk for certain cancers and cause problems with your mental health, such as depression, anxiety, psychosis, delirium, and dementia. People with this disorder risk hurting themselves and others. What are the causes? This condition is caused by drinking too much alcohol over time. It is not caused by drinking too much alcohol only one or two times. Some people with this condition drink alcohol to cope with or escape from negative life events. Others drink to relieve pain or symptoms of mental illness. What increases the risk? You are more likely to develop this condition if: You have a family history of alcohol use disorder. Your culture encourages drinking to the point of intoxication, or makes alcohol easy to get. You had a mood or conduct disorder in childhood. You have been a victim of abuse. You are an adolescent and: ?You have poor grades or difficulties in school. ?Your caregivers do not talk to you about saying no to alcohol, or supervise your activities. ?You are impulsive or you have trouble with self-control. What are the signs or symptoms? Symptoms of this condition include: Drinking more than you want to. Drinking for longer than you want to. Trying several times to drink less or to control your drinking. Spending a lot of time getting alcohol, drinking, or recovering from drinking. Craving alcohol. Having problems at work, at school, or at home due to drinking. Having problems in relationships due to drinking. Drinking when it is dangerous to drink, such as before driving a car. Continuing to drink even though you know you might have a physical or mental problem related to drinking. Needing more and more alcohol to get the same effect you want from the alcohol (building up tolerance). Having symptoms of withdrawal when you stop drinking. Symptoms of withdrawal include: ?Fatigue. ?Nightmares. ?Trouble sleeping. ?Depression. ?Anxiety. ?Fever. ?Seizures. ?Severe confusion. ?Feeling or seeing things that are not there (hallucinations). ?Tremors. ?Rapid heart rate. ?Rapid breathing. ?High blood pressure. Drinking to avoid symptoms of withdrawal. How is this diagnosed? This condition is diagnosed with an assessment. Your health care provider may start the assessment by asking three or four questions about your drinking. Your health care provider may perform a physical exam or do lab tests to see if you have physical problems resulting from alcohol use. She or he may refer you to a mental health professional for evaluation. How is this treated? Some people with alcohol use disorder are able to reduce their alcohol use to low-risk levels. Others need to completely quit drinking alcohol. When necessary, mental health professionals with specialized training in substance use treatment can help. Your health care provider can help you decide how severe your alcohol use disorder is and what type of treatment you need. The following forms of treatment are available: Detoxification. Detoxification involves quitting drinking and using prescription medicines within the first week to help lessen withdrawal symptoms. This treatment is important for people who have had withdrawal symptoms before and for heavy drinkers who are likely to have withdrawal symptoms. Alcohol withdrawal can be dangerous, and in severe cases, it can cause . Detoxification may be provided in a home, community, or primary care setting, or in a hospital or substance use treatment facility. Counseling. This treatment is also called talk therapy. It is provided by substance use treatment counselors. A counselor can address the reasons you use alcohol and suggest ways to keep you from drinking again or to prevent problem drinking. The goals of talk therapy are to: ?Find healthy activities and ways for you to cope with stress. ?Identify and avoid the things that trigger your alcohol use. ?Help you learn how to handle cravings. Medicines. Medicines can help treat alcohol use disorder by: ?Decreasing alcohol cravings. ?Decreasing the positive feeling you have when you drink alcohol. ?Causing an uncomfortable physical reaction when you drink alcohol (aversion therapy). Support groups. Support groups are led by people who have quit drinking. They provide emotional support, advice, and guidance. These forms of treatment are often combined. Some people with this condition benefit from a combination of treatments provided by specialized substance use treatment centers. Follow these instructions at home: Take fbsa-rqs-ghiekau and prescription medicines only as told by your health care provider. Check with your health care provider before starting any new medicines. Ask friends and family members not to offer you alcohol. Avoid situations where alcohol is served, including gatherings where others are drinking alcohol. Create a plan for what to do when you are tempted to use alcohol. Find hobbies or activities that you enjoy that do not include alcohol. Keep all follow-up visits as told by your health care provider. This is important. How is this prevented? If you drink, limit alcohol intake to no more than 1 drink a day for non women and 2 drinksa day for men. One drink equals 12 oz of beer, 5 oz of wine, or 1 oz of hard liquor. If you have a mental health condition, get treatment and support. Do not give alcohol to adolescents. If you are an adolescent: ?Do not drink alcohol. ?Do not be afraid to say no if someone offers you alcohol. Speak up about why you do not want to drink. You can be a positive role model for your friends and set a good example for those around you by not drinking alcohol. ?If your friends drink, spend time with others who do not drink alcohol. Make new friends who do not use alcohol. ?Find healthy ways to manage stress and emotions, such as meditation or deep breathing, exercise, spending time in nature, listening to music, or talking with a trusted friend or family member. Contact a health care provider if: You are not able to take your medicines as told. Your symptoms get worse. You return to drinking alcohol (relapse) and your symptoms get worse. Get help right away if: You have thoughts about hurting yourself or others. If you ever feel like you may hurt yourself or others, or have thoughts about taking your own life,get help right away. You can go to your nearest emergency department or call: Your local emergency services (911 in the [place] A suicide crisis helpline, such as the National Suicide Prevention Lifeline at . Thisis open 24 hours a day. Summary Alcohol use disorder is when your drinking disrupts your daily life. When you have this condition, you drink too much alcohol and you cannot control your drinking. Treatment may include detoxification, counseling, medicine, and support groups. Ask friends and family members not to offer you alcohol. Avoid situations where alcohol is served. Get help right away if you have thoughts about hurting yourself or others. This information is not intended to replace advice given to you by your health care provider. Make sure you discuss any questions you have with your health care provider. Document Released: 08/07/2005 Document Revised: 06/12/2018 Document Reviewed: 03/27/2017 [employer] Patient Education 2020 [employer]. 12/06/2021 13:56:12 Alcohol Intoxication Alcohol Intoxication Alcohol intoxication occurs when a person no longer thinks clearly or functions well (becomes impaired) after drinking alcohol. Intoxication can occur with just one drink. The legal definition of alcohol intoxication depends on the amount of alcohol in the blood (blood alcohol concentration, MIKE). MIKE of 80 100 mg/dL or higher is commonly considered legally intoxicated. The level of impairment depends on: The amount of alcohol the person had. The person's age, gender, and weight. How often the person drinks. Whether the person has other medical conditions, such as diabetes, seizures, or a heart condition. Alcohol intoxication can range from mild to severe. The condition can be dangerous, especially if the person: Also took certain drugs or prescription medicines. Drinks a large amount of alcohol in a short period of time (binge drinks). ?For women, binge drinking is having four or more drinks at one time. ?For men, binge drinking is having five or more drinks at one time. If you or anyone around you appears intoxicated, speak up and act. What are the causes? This condition is caused by drinking alcohol. What increases the risk? The following factors may make you more likely to develop this condition: Peer pressure in young adults. Difficulty managing stress. History of drug or alcohol abuse. Combining alcohol with drugs. Family history of drug or alcohol abuse. Low body weight. Binge drinking. What are the signs or symptoms? Symptoms of alcohol intoxication can vary from person to person. Symptoms can be mild, moderate, orsevere. Symptoms of mild alcohol intoxication may include: Feeling relaxed or sleepy. Having mild difficulty with coordination, speech, memory, or attention. Symptoms of moderate alcohol intoxication may include: Extreme emotions, like anger or sadness. Moderate difficulty with coordination, speech, memory, or attention. Symptoms of severe alcohol intoxication may include: Severe difficulty with coordination, speech, memory, or attention. Passing out. Vomiting. Confusion. Slow breathing. Coma. Intoxication can change quickly from mild to severe. It can cause coma or , especially in people who are not exposed to alcohol often. How is this diagnosed? Your health care provider will ask you how much alcohol you drank and what kind you had. Intoxication may also be diagnosed based on: Your symptoms and medical history. A physical exam. A blood test that measures MIEK. A smell of alcohol on your breath. How is this treated? Treatment for alcohol intoxication may include: Being monitored in an emergency department, hospital, or treatment center until your MIKE comes downand it is safe for you to go home. IV fluids to prevent or treat loss of fluid in the body (dehydration). Medicine to treat nausea or vomiting or to get rid of alcohol in the body. Counseling (brief intervention) about the dangers of using alcohol. Treatment for substance use disorder. Oxygen therapy or a breathing machine (ventilator). Long-term (chronic) exposure to alcohol can have long-term effects on your brain, heart, and gastrointestinal system. These effects can be serious and may also require treatment. Follow these instructions at home: Eating and drinking Do not drink alcohol if: ?Your health care provider tells you not to drink. ?You are , may be , or are planning to become . ?You are under the legal drinking age (21 years old in the [place] ?You are taking medicines that should not be taken with alcohol. ?You have a medical condition, and alcohol makes it worse. ?You need to drive or perform activities that require you to be alert. ?You have substance use disorder. Ask your health care provider if alcohol is safe for you. If your health care provider allows you to drink alcohol, limit how much you have. You may drink: ?0 1 drink a day for women. ? 0 2 drinks a day for men. ?Be aware of how much alcohol is in your drink. In the [place] one drink equals one 12 oz bottle of beer (355 mL), one 5 oz glass of wine (148 mL), or one 1 oz shot of hard liquor (44 mL). Avoid drinking alcohol on an empty stomach. Stay hydrated. Drink enough fluid to keep your urine pale yellow. Avoid caffeine because it can dehydrate you. Avoid drinking more than one drink per hour. When having multiple drinks, drink water or a non-alcoholic beverage between alcoholic drinks. General instructions Take qtvy-aoj-aunceim and prescription medicines only as told by your health care provider. Do not drive after drinking any amount of alcohol. Plan for a designated haul truck driver or another way to go home. Have someone responsible stay with you while you are intoxicated. You should not be left alone. Keep all follow-up visits as told by your health care provider. This is important. Contact a health care provider if: You do not feel better after a few days. You have problems at work, at school, or at home due to drinking. Get help right away if: You have any of the following: ?Moderate to severe trouble with coordination, speech, memory, or attention. ?Trouble staying awake. ?Severe confusion. ?A seizure. ?Light-headedness. ?Fainting. ?Vomiting bright red blood or material that looks like coffee grounds. ?Bloody stool (feces). The blood may make your stool bright red, black, or tarry. It may also smellbad. ?Shakiness when trying to stop drinking. ?Thoughts about hurting yourself or others. If you ever feel like you may hurt yourself or others, or have thoughts about taking your own life,get help right away. You can go to your nearest emergency department or call: Your local emergency services (911 in the [place] A suicide crisis helpline, such as the National Suicide Prevention Lifeline at . Thisis open 24 hours a day. Summary Alcohol intoxication occurs when a person no longer thinks clearly or functions well after drinkingalcohol. If your health care provider says that alcohol is safe for you, limit alcohol intake to no more than 1 drink a day for women (no drinks if you are ) and 2 drinks a day for men. One drink equals 12 oz of beer, 5 oz of wine, or 1 oz of hard liquor. Contact your health care provider if drinking has caused you problems at work, school, or home. Get help right away if you have thoughts about hurting yourself or others. This information is not intended to replace advice given to you by your health care provider. Make sure you discuss any questions you have with your health care provider. Document Released: 04/09/2006 Document Revised: 10/20/2018 Document Reviewed: 10/20/2018 [employer] Patient Education 2020 [employer] Follow Up Care 12/06/2021 03:52:29 With:Leo CAMERON Address: [address] [place], [place] [address] Business (1) When:12/11/2021 14:20:00 Comments:Call the office of your primary care doctor to arrange for follow-up within the above-stated timeframe. Follow-up with your primary care doctor about this ED visit. You should review your labs, imaging, and diagnoses from this ED visit with your primary care physician. If you were prescribed medications you should discuss possible side-effects and drug interactions with your pharmacist. Call 911 or go to the nearest Emergency Department if you develop any new or worsening symptoms.Return to theED at any time to continue work-up including your MRI. [facility]05-03-2022 Evaluation + Plan noteExtracted from: Title:Discharge Note Author:Alaina STRINGER, Jamshid White Date:11/13/21 1. Acute alcohol intoxication (F10.929: Alcohol use, unspecified with intoxication, unspecified) 1. Weakness, (R53.1: Weakness)Generalized weakness Ordered: Phosphorus Level 2. Chronic alcohol abuse (F10.10: Alcohol abuse, uncomplicated) 3. Fall (W19.XXXA: Unspecified fall, initial encounter) 4. Dizziness (R42: Dizziness and giddiness) 6. Hypokalemia (E87.6: Hypokalemia) 7. Generalized pain (R52: Pain, unspecified) 8. Coronary artery disease (I25.10: Atherosclerotic heart disease of [place] coronary artery without angina pectoris) 9. Chronic respiratory failure with hypoxia (J96.11: Chronic respiratory failure with hypoxia) 10. History of diastolic dysfunction (Z86.79: Personal history of other diseases of the circulatory system) 11. Rheumatoid arthritis (M06.9: Rheumatoid arthritis, unspecified) 12. Pancytopenia (D61.818: Other pancytopenia) Orders: magnesium sulfate + Generic Diluent 50 mL, 2 gm = 50 mL, Soln-IV, IV Piggyback, q2hr for 3 dose(s), Stop date 11/12/21 18:59:00 EDT, Start date 11/12/21 13:00:00 EDT, 25 mL/hr, Infuse over 2 hour(s) potassium chloride, 20 mEq = 1 tab(s), Tab-ER, Oral, Once, Stop date 11/13/21 13:00:00 EDT, Routine, Start date 11/13/21 13:00:00 EDT potassium phosphate + Sodium Chloride 0.9% intravenous solution 250 mL, 15 mmol = 5 mL, Soln-IV, IV Piggyback, Once, Stop date 11/13/21 11:00:00 EDT, Routine, Start date 11/13/21 11:00:00 EDT, 63.75 mL/hr, Infuse over 4 hour(s) Automated Diff Basic Metabolic Panel CBC w/ Auto Diff eGFR Magnesium Level Phosphorus Level Referral to Resource [facility] Prescriptions AirDuo RespiClick 113 mcg-14 mcg/inh inhalation powder, 1 puff, Inhalation, BID, 5 refills, Not taking: per list family gave albuterol 0.083% Inh Avril 3 mL, 0.083% - 3mL dosing units, Inhalation, q6hr, PRN, 11 refills, Not taking albuterol HFA 90 mcg/inh MDI, 2 puff(s), Inhalation, q4hr, PRN, 5 refills carvedilol 25 mg Tab, 25 mg= 1 tab(s), Oral, BID, 5 refills ferrous sulfate 325 mg Tab, 325 mg= 1 tab(s), Oral, Daily, 3 refills fluticasone 0.05 mg/inh Nasal Muse, 1 spray(s), Nasal, BID, 11 refills folic acid 1 mg Tab, 1 mg= 1 tab(s), Oral, Daily gabapentin 300 mg Cap, 300 mg= 1 cap(s), Oral, TID, Not taking: per list family gave LORazepam 1 mg Tab, 1 mg= 1 tab(s), Oral, QID, PRN, Not taking: per list family gave Multi Vitamins oral tablet, 1 tab(s), Oral, Daily nitroglycerin 0.4 mg sublingual Tab, 0.4 mg= 1 tab(s), SubLingual, q5min, PRN, 11 refills oxybutynin 5 mg Tab, 5 mg= 1 tab(s), Oral, BID, 5 refills oxyCODONE 5 mg Tab, 5 mg= 1 tab(s), Oral, q6hr, PRN pravastatin 40 mg Tab, 40 mg= 1 tab(s), Oral, Daily, 3 refills spironolactone 50 mg Tab, 50 mg= 1 tab(s), Oral, BID, 5 refills, Not taking: per list family gave tamsulosin 0.4 mg Cap, 0.4 mg= 1 cap(s), Oral, Bedtime, 3 refills thiamine 100 mg Tab, 100 mg= 1 tab(s), Oral, Daily traZODONE 50 mg Tab, 50 mg= 1 tab(s), Oral, Once a day (at bedtime) Home aspirin 81 mg Oral EC Tab, 81 mg= 1 tab(s), Oral, Daily bumetanide 2 mg Tab, 2 mg= 1 tab(s), Oral, Daily cholecalciferol 1000 intl units (25 mcg) oral tablet, 25 mcg= 1 tab(s), Oral, Daily, Not taking: per list family gave DuoNeb 2.5 mg-0.5 mg/3 mL Soln-Inh, 3 mL, Inhalation, QID hydroxychloroquine 200 mg Tab, 200 mg= 1 tab(s), Oral, q12hr leflunomide 10 mg oral tablet, 10 mg= 1 tab(s), Oral, Daily, Not taking: per list family gave nicotine 21 mg/24 hr Transderm ER Film, TransDermal, Daily, Not taking: per list family gave potassium chloride 20 mEq ER Tab, 40 mEq= 2 tab(s), Oral, BID No qualifying data available Extracted from: Title:Admission H & P Author:Joesph CARMONA DO Date:11/12/21 1. Acute alcohol intoxicatio n (L60.400: Alcohol use, unspecified with intoxication, unspecified) See below. Patient did state he had a bottle of black velvet prior to coming in to the emergency department 2. Chronic alcohol abuse (F10.10: Alcohol abuse, uncomplicated) Patient states he resumed drinking since being released from [facility] 2 and half weeks prior. When asking him to quantify, he would repeatedly state too much would not give me a specific amount. Placed on [facility] protocol 3. Fall (W19.XXXA: Unspecified fall, initial encounter) Patient was very vague in regards to the nature of the fall potentially multifactorial including due to his generalized weakness, there were complaints in the emergency department of dizziness though he denied this when I asked also likely role of being acutely intoxicated. Note tox screen was positive for opiates but the timing of the results appears to occur after he is given morphine emergency department. We will ask physical therapy to evaluate, monitor on site monitor electrolytes 4. Dizziness (R42: Dizziness and giddiness) This was shared with the emergency transportation department supervisor, when I asked him he denied this. We will monitor on telemetry, question role of his acute intoxication. Patient has not noted to be hypotensive did not feel there are any acute ST abnormalities he has not prerenal. Will observe with activity with physical therapy 5. Generalized weakness (R53.1: Weakness) Multifactorial. I was under the impression when the case was presented to both patient and his desire to return to the extended care facility. Patient however adamantly denies this and states he does not desire to be an extended care facility Ordered: Creatine Kinase 6. Hypokalemia (E87.6: Hypokalemia) Patient was supplemented in the emergency department. We will repeat labs this morning. With his history of chronic alcohol use will check serum magnesium as well. Monitor on telemetry 7. Generalized pain (R52: Pain, unspecified) Review of the chart he has had this complaint on several previous hospitalizations. Treat conservatively with Tylenol as needed Toradol the monitor hemoglobin closely with his chronic alcohol use he is at risk for bleeding desire to avoid narcotics however 8. Coronary artery disease (I25.10: Atherosclerotic heart disease of [place] coronary artery without angina pectoris) Patient denies any chest pain or pressure. He does state he has been taking his aspirin all the other medications he was previously scribed he is stopped 9. Chronic respiratory failure with hypoxia (J96.11: Chronic respiratory failure with hypoxia) No evidence of acute respiratory decompensation. Continue O2 10. History of diastolic dysfunction (Z86.79: Personal history of other diseases of the circulatory system) As patient has not prerenal have been hesitant to hydrate for do not wish to create volume overload 11. Rheumatoid arthritis (M06.9: Rheumatoid arthritis, unspecified) Patient was previously on hydroxychloroquine and Arava. Med rec when I saw him this morning was not yet complete 12. Pancytopenia (D61.818: Other pancytopenia) Likely due to his alcohol consumption cannot rule out role of rheumatoid arthritis. Will monitor for stability Orders: acetaminophen, 650 mg = 2 tab(s), Tab, Oral, q6hr PRN Pain, Routine, Start date 11/12/21 8:07:00 EDT, 11/12/21 8:07:00 EDT aspirin, 81 mg = 1 tab(s), Tab-EC, Oral, Daily, Routine, Start date 11/12/21 9:00:00 EDT, 11/12/21 8:07:00 EDT folic acid, 1 mg = 1 tab(s), Tab, Oral, Daily, Routine, Start date 11/12/21 9:00:00 EDT, 11/12/21 8:24:00 EDT heparin, 5,000 unit(s) = 1 mL, Injection, SubCutaneous, BID for 30 day(s), Stop date 12/12/21 8:59:00 EDT, Routine, Start date 11/12/21 9:00:00 EDT, 11/12/21 8:07:00 EDT hydrALAZINE, 10 mg = 0.5 mL, Injection, IV Push, q6hr PRN Other (see comment), Routine, Start date 11/12/21 8:07:00 EDT, 11/12/21 8:07:00 EDT lorazepam, 1 mg = 0.5 mL, Injection, IV Push, q1hr PRN Anxiety, Routine, Start date 11/12/21 8:24:00 EDT, 11/12/21 8:24:00 EDT multivitamin, 1 tab(s), Tab, Oral, Daily, Routine, Start date 11/12/21 9:00:00 EDT ondansetron, 4 mg = 2 mL, Injection, IV Push, q6hr PRN Nausea, Routine, Start date 11/12/21 8:07:00 EDT, 11/12/21 8:07:00 EDT thiamine, 100 mg = 1 tab(s), Tab, Oral, Daily, Routine, Start date 11/12/21 9:00:00 EDT, 11/12/21 8:24:00 EDT Ambulate with Assistance Basic Metabolic Panel Cardiac Monitoring CBC w/ Auto Diff Clinical Donie Withdrawal Assessment Clinical Donie Withdrawal Assessment Clinical Donie Withdrawal Assessment Clinical Donie Withdrawal Assessment Communication Order Physician to Nursing Magnesium Level Notify Provider Vital Signs Notify Provider Vital Signs Oxygen Protocol Oxygen Protocol Physical Therapy Evaluate Patient, Develop a Plan of Care and Implement Plan Place in Status Precautions Precautions Regular Diet TSH With T4fr Reflex Vital Signs Vital Signs Vital Signs Vital Signs Vital Signs Weight Patient is admitted as general inpatient we will ask physical therapy to assess patient had several previous hospitalizations with similar complaints and ended 2 previous hospitalizations was released to extended care facility. I was advised to both the patient and his did not feel that he could stay at home but when discussing this with the patient this morning he adamantly denied this stating he did not have a desire to go to the extended care facility. We will asked social media project manager to assist Note patient states he has stopped all his medication since being discharged from [facility] 2-1/2 weeks prior. In reviewing the med rec it is not yet complete. We will await confirmation of meds that patient was most recently on while at [facility] consideration of resumption. Extracted from: Title:ED Note Author:Carol Hackett DO Date :11/12/21 Acute alcohol intoxication ( F10.929: Alcohol use, unspecified with intoxication, unspecified) Dizziness (R42: Dizziness and giddiness) Generalized weakness (R53.1: Weakness) Orders: albuterol-ipratropium, 3 mL, Soln-Inh, Inhalation, Once, Stop date 11/11/21 23:55:00 EDT, STAT, Start date 11/11/21 23:55:00 EDT morphine, 2 mg = 0.5 mL, Injection, IV Push, Once, Stop date 11/11/21 23:53:00 EDT, STAT, Start date 11/11/21 23:53:00 EDT, 11/11/21 23:53:00 EDT Sodium Chloride 0.9% intravenous solution 1,000 mL, 1,000 mL, IV, KVO, STAT, Start date 11/11/21 23:53:00 EDT, Total volume (mL): 1,000, 71 kg, 1.91, m2 Automated Diff Basic Metabolic Panel CBC w/ Auto Diff Continuous Pulse Oximetry Drug Screen Urine ED Cardiac Monitoring ED Physician consult Hospitalist for continued care eGFR Ethanol Level Hepatic Function Panel Oxygen Therapy PT & PTT Routine Capillary Glucose POC Troponin 0 Hr. UA With Cult Reflex XR Ribs Unilat 3 Views Right w/ PA Chest Future Appointments Appointment Date:11/20/2021 01:00:00 PM Scheduled Provider:Leo GARZA Location:[facility] Appointment Type: ER/Hospital Follow Up Future Scheduled Tests Laboratory* Basic Metabolic Panel 08/09/21 [facility]05-03-2022 Hospital Discharge instructions Patient Education 11/13/2021 11:58:52 Alcohol Intoxication, Ageu-pp-Yeff Alcohol Intoxication Alcohol intoxication happens when you cannot think clearly or function well (get impaired) after drinking alcohol. This can happen after just one drink. The effect that alcohol has on how you think and function depends on: How much alcohol you drank. Your age, your weight, and whether you are a man or a woman. How often you drink alcohol. If you have other medical problems. Alcohol intoxication can range from mild to very bad. It can be dangerous, especially if you: Drink a large amount of alcohol in a short time (binge drink). ?For women, binge drinking is having four or more drinks at one time. ?For men, binge drinking is having five or more drinks at one time. Take certain drugs or medicines. If you or anyone around you seems intoxicated: Tell someone. Get help from someone. Follow these instructions at home: Eating and drinking Ask your doctor if alcohol is safe for you. ?If your doctor says that alcohol is safe for you, limit how much you drink to no more than 1 drinka day for women who are not and 2 drinks a day for men. One drink equals one of these: ?12 oz of beer. ?5 oz of wine. ?1 oz of hard liquor. ?Do not drink alcohol if: ?Your doctor tells you not to drink. ?You are , may be , or are planning to get . ?You are under the legal drinking age (21 years old in the [place] ?You are taking medicines that you should not take with alcohol. ?Alcohol causes your medical problem to get worse. ?You have to drive or do activities that need you to be alert. ?You have substance use disorder. This is when using alcohol again and again causes problems with your health, your relationships, or with what you need to do at work, home, or school. ?Be sure to eat before you drink alcohol. Avoid drinking when you have an empty stomach. ?Make sure you have enough fluid in your body (stay hydrated). To do this: ?Drink enough fluid to keep your pee (urine) pale yellow. ?Avoid caffeine, which may be in coffee, tea, and some sodas. Caffeine can make you thirsty. ?Try not to drink more than one drink an hour. ?If you are having more than one drink, have a drink without alcohol (such as water) between your drinks. General instructions Take btvp-xub-iiqkemu and prescription medicines only as told by your doctor. Do not drive after drinking any amount of alcohol. Plan for a designated haul truck driver or another way to go home. Have someone you trust stay with you while you are intoxicated. Youshould not be left alone. Keep all follow-up visits as told by your doctor. This is important. Contact a doctor if: You do not feel better after a few days. You have problems at work, at school, or at home due to drinking. Get help right away if: You have any of the following: ?Moderate or very bad trouble with: ?Movement (coordination). ?Talking. ?Memory. ?Paying attention to things. ?Trouble staying awake. ?Being very confused. ?Jerky movements that you cannot control (seizure). ?Light-headedness. ?Fainting. ?Throwing up (vomiting) blood. The blood may be bright red or look like coffee grounds. ?Blood in your poop (stool). The blood may: ?Be bright red. ?Make your poop black and tarry and make it smell bad. ?Feeling shaky when you try to stop drinking. ?Thoughts about hurting yourself or others. If you ever feel like you may hurt yourself or others, or have thoughts about taking your own life,get help right away. You can go to your nearest emergency department or call: Your local emergency services (911 in the [place] A suicide crisis helpline, such as the National Suicide Prevention Lifeline at . Thisis open 24 hours a day. Summary Alcohol intoxication happens when you cannot think clearly or function well (get impaired) after drinking alcohol. This can happen after just one drink. If your doctor says that alcohol is safe for you, limit how much you drink to no more than 1 drink a day for women who are not and 2 drinks a day for men. Contact a doctor if you have problems at work, at school, or at home due to drinking. Get help right away if you have thoughts about hurting yourself or others. This information is not intended to replace advice given to you by your health care provider. Make sure you discuss any questions you have with your health care provider. Document Released: 12/16/2008 Document Revised: 12/01/2019 Document Reviewed: 10/20/2018 [employer] Patient Education 2020 [employer]. Follow Up Care 11/11/2021 23:19:55 With:Leo GARZA Address: [address] [place] [id number]- [facility] (1) [address] [place] [id number]- When:11/20/2021 13:00:00 [facility]04-08-2022 History of Present illness Narrative* Asael Sheppard APRN.OYSTER HARVESTER - 10/19/2021 12:00 AM EDT [facility] NOTE NAME: CAROLINA LEVY NO.: [id number] DATE OF SERVICE: 10/19/2021 [facility] DATE OF : 1955 REASON FOR VISIT: The patient is a resident of [facility]. This is a skilled visit for hyponatremia and other medical concerns. The patient had sodium chloride increased after the patientwas found to have decreased serum sodium of 129. Upon entering the room found the patient calm, alert, sitting on side of the bed. The patient does not appear to be in distress or discomfort. The patient is noted to have supplemental oxygen on. The patient states he has no tremors and no cravings for alcohol. States he does receive 1 can of beer per day and feels this is adequate to sustain his cravings for alcohol. The patient states he continues to smoke. The patient states he does have pain to the right posterior chest wall region. The patient states he does have fractured ribs and states he feels a popcorn-like sensation to the upper rib cage area. The patient states no shortness of breath. The patient states no fever or chills. The patient states no cough. The patient states appetite is good and bowels have been moving. He states he has been drinking fluids. Denies urinary symptoms. MEDICATIONS: Have been reviewed. EXAMINATION: Temp 97.5, blood pressure 114/62, pulse 84, respirations 17, pulse ox 97% on supplemental oxygen, weight 180.7 pounds. Respiratory: Respirations are easy and unlabored with patient at rest. Lung sounds clear and diminished. No subcutaneous emphysema is noted with palpation. Heart: Heart rate and rhythm is irregular. Abdomen: Soft, nontender to palpation. Bowel sounds are present x4. Extremities: Nonedematous. Musculoskeletal: Right upper posterior rib cage area, the patient complains of increased pain to this area, no bruising, swelling, or crepitus is noted with palpation. IMPRESSION AND PLAN: 1. Hyponatremia. We will continue to monitor lab work. Sodium chloride has been increased. 2. Alcohol abuse with intoxication. The patient does find sanity with 1 beer a day and has no complaints of tremors or symptoms of withdrawal. The patient does have Ativan as needed. 3. Coronary artery disease without angina. No coronary concerns are identified. 4. Respiratory failure with chronic obstructive pulmonary disease. The patient is on longstanding supplemental oxygen, does take AirDuo, albuterol nebulizer, fluticasone. 5. Pain in the left finger. No acute abnormalities noted per left index finger x-ray. The patient may have heat or cool compress to the finger, whichever helps ease pain. The patient does have medications for pain as needed. 6. A pack smoker. No intentions of smoking cessation. 7. Generalized weakness. Continue with therapy services. DICTATED BY: SHIRA Larsen JOB# [id number] cc:[facility] History of Present illness Narrative* Asael Sheppard APRN.OYSTER HARVESTER - 10/16/2021 12:00 AM EDT [facility] NOTE NAME: CAROLINA LEVY NO.: [id number] DATE OF SERVICE: 10/16/2021 [facility] DATE OF : 1955 REASON FOR VISIT: The patient is a resident of [facility]. This is a skilled visit for alcohol abuse with intoxication and other medical concerns. Upon entering the room, found the patient sitting at the side of the bed with therapy in room. The patient is calm, alert. Does not appear to be in distress or discomfort. The patient is noted to have supplemental oxygen on. The patient states has no unusual shortness of breath. The patient states always has shortness of breath. The patient states continues to smoke and does not wish for smoking cessation at this time. The patient states does have pain to the index finger, is unsure as to how it happened. Stated feels as though he came in with pain to the index finger. The patient states pain is focused at the PIP joint of left index finger. Does not recall injuring. The patient states also has generalized pain due to his rheumatoid arthritis and also has pain to the right ribcage region from post fall and rib fracture. The patient states no cough, no unusual shortness of breath. No fever, chills, or nausea. States appetite isgood and bowels have been moving. States has been drinking fluids. Denies urinary symptoms. Medications have been reviewed. EXAMINATION: Temp 97.6, blood pressure 114/62, pulse 84, respirations 17, pulse ox 96% on supplemental oxygen. Weight 180.2 pounds. Respiratory: Respirations are easy and unlabored with the patient at rest. Lung sounds are diminished throughout. Heart: Heart rate and rhythm regular. Abdomen: Soft, nontender with palpation. Bowel sounds present x4. Extremities: Not edematous. Musculoskeletal: Leftindex finger, there is swelling. No bruising identified. The patient has pain to the mid digit leftindex finger with palpation and movement. No pain to the proximal or distal portion of the finger. Full sensorium as stated. Cap refill is brisk. IMPRESSION AND PLAN: 1. Alcohol abuse with intoxication. The patient is currently on thiamine, folic acid, and does havelorazepam as needed for withdrawals. Continue to monitor closely for withdrawals or seizure activity and notify immediately. 2. Hyponatremia, currently on sodium chloride. 3. Coronary artery disease. No coronary concerns at this time. Continue pravastatin, aspirin, carvedilol. The patient does have nitroglycerin as needed. 4. Respiratory failure with chronic obstructive pulmonary disease. The patient is on supplemental oxygen routine. The patient does have AirDuo RespiClick, albuterol nebulizing solution. 5. Pain to left finger. The patient will have x- ray of left index finger. For finger pain, the patient will have Tylenol routine as well as p.r.n. The patient does have oxycodone. 6. Smoker. The patient continues smoking. No interventions at this time. 7. Generalized weakness. Continue with therapy services. DICTATED BY: SHIRA Larsen/Norris JOB# [id number] cc:[facility] documented in this encounterSt[facility] Evaluation + Plan note Future Scheduled Tests Laboratory* Basic Metabolic Panel 08/09/21 [facility] Evaluation + Plan note Future Appointments Appointment Date:04/17/2022 11:00:00 AM Scheduled Provider:Leo GARZA Location:[facility] Appointment Type: Open Future Scheduled Tests Laboratory* Basic Metabolic Panel 08/09/21 [facility] Evaluation + Plan note Future Appointments Appointment Date:04/17/2022 11:00:00 AM Scheduled Provider:Leo GARZA Location:[facility] Appointment Type: Open Future Scheduled Tests Laboratory* Basic Metabolic Panel 08/09/21 * Hepatic Function Panel 04/07/22 [facility] Evaluation + Plan note Future Appointments Appointment Date:05/21/2022 08:20:00 AM Scheduled Provider:Leo GARZA Location:[facility] Appointment Type: Open Future Scheduled Tests Laboratory* Basic Metabolic Panel 08/09/21 * Hepatic Function Panel 04/07/22 [facility] Evaluation noteNo assessment information available [facility] Work Phone: evaluvllna note* Diagnosis Fall, initial encounter- [facility] SOB (shortness of breath)- Primary Shortness of breath [facility] N[facility] No data available for this section [facility] No data available for this section [facility] No data available for this section [facility] Summary Purpose Family History No Family History Records FoundNo Family History Records FoundNo Family History Records FoundNo Family History Records FoundNo Family History Records FoundNo Family History Records FoundNo Family History Records FoundNo Family History Records Found Advance Directives No Advanced Directives Records FoundDocuments on File Type Date Recorded Patient Program Development Specialist Expl anation Advance Directives and Living Will Power of Public Health Outreach Worker Latest Code Status on File Code Status Date Activated Date Inactivated Comments Full Code 01/10/2018 11:03 AM 01/11/2018 6:26 PM Full Code 11/23/2015 7:33 AM 11/23/2015 5:45 PM Full Code 11/16/2015 7:39 AM 11/16/2015 6:15 PM Full Code 10/13/2015 9:04 AM 10/13/2015 6:09 PM Full Code 09/26/2015 10:37 AM 09/26/2015 5:14 PM Documents on File Type Date Recorded Patient Program Development Specialist Expl anation ACP-Advance Directive ACP-Power of Public Health Outreach Worker Advance Directive Response Recorded Date/ Time Advance Directives No March 7:27pm Hospital Course Note MR#: [id number] I [facility] Pt. Name: Melba Levy Admitted: 12/23/2017 Discharged: 01/09/2018 Date of : 1955 Physician: Donovan Woods MD DISCHARGE SUMMARY DATE OF SERVICE: 01/09/2018. PRINCIPAL DIAGNOSES: 1. Right-sided empyema. 2. Right-sided rib fractures 5 through 9 of chest. 3. Bacteremia. 4. Chronic obstructive pulmonary disease. 5. Oxygen dependence. SUMMARY OF HOSPITAL COURSE STAY: Mr. Levy is a 62-year-old gentleman, who was [facility] after a fall that he has sustained several days prior to presentation to an outside hospital. The patient was found to have a hydropneumothorax. Chest tube was placed at the outside hospital and he was transferred to [facility]. The patient had infiltrates on the chest CT. He had positive blood cultures for MSSA. The patient was monitored in the surgical ICU. He was treated with IV antibiotics. Infectious Disease consultation was obtained. He received supplemental oxygen (more content not included)... Note MR#: [id number] I [facility] Pt. Name: Melba Levy Admitted: 01/11/2018 Discharged: 01/17/2018 Date of : 1955 Physician: Svitlana Jones MD DISCHARGE SUMMARY PRINCIPAL DIAGNOSIS: Hypoxia. SECONDARY DIAGNOSIS: None. HOSPITAL COURSE: The patient is a 62-year-old male, originally discharged from [facility] on 01/09/2018 after a fall with right rib fractures and pneumonia. He returned as a transfer from [place] for a higher level of care with continued hypoxia and increased pain on his rib fracture sites. Procedures performed, none. During the patient's hospital course, his oxygen was initially started on nonrebreather and was weaned down over the course of 6 days back to his home oxygen level. He developed a right upper quadrant pain that was worked up and found to be negative. No additional interventions were performed. DISCHARGE INSTRUCTIONS: The patient was stable upon discharge to a group home facility and the following instructions were (more content not included)... Assessments Diagnosis Lumbar spondylosis Lumbosacral spondylosis without myelopathy Diagnosis Polyarthralgia Pain in joint, multiple sites Chief Complaint and Reason for Visit Chief Complaint hospice patient Additional Source Comments (unrecognized sect ion and content) No Status Records FoundNo Status Records FoundNo Status Records FoundNo Status Records FoundNo Status Records FoundNo Status Records FoundNo Status Records FoundNo Status Records Found INFORMATION SOURCE (unrecogn ized section and content) DATE CREATED AUTHOR 01/17/2018 [facility] DATE CREATED AUTHOR AUTHOR'S ORGANIZ ATION 10/28/2018 [facility] DATE CREATED AUTHOR AUTHOR'S ORGANIZ ATION 05/08/2022 [facility] DATE CREATED AUTHOR AUTHOR'S ORGANIZ ATION 01/25/2023 [facility] DATE CREATED AUTHOR AUTHOR'S ORGANIZ ATION 03/20/2023 [facility] DATE CREATED AUTHOR AUTHOR'S ORGANIZ ATION 07/12/2023 [facility] DATE CREATED AUTHOR AUTHOR'S ORGANIZ ATION 08/11/2023 [facility] DATE CREATED AUTHOR AUTHOR'S ORGANIZ ATION 08/19/2023 [facility] Source Comments (unrecognize d section and content) In the event this informatio n is protected by the Federal Confidentiality of Alcohol and Drug Abuse Patient Records regulations: The Federal rules restrict any use of the information to criminally investigate or prosecute any alcohol or drug abuse patient.[facility] HospitalIn the event this information is protected by the Federal Confidentiality of Alcohol and Drug Abuse Patient Records regulations: The Federal rules restrict any use of the information to criminally investigate or prosecute any alcohol or drug abuse patient.[facility] HospitalIn the event this information is protected by the Federal Confidentiality of Alcohol and Drug Abuse Patient Records regulations: The Federal rules restrict any use of the information to criminally investigate or prosecute any alcohol or drug abuse patient.[facility] HospitalIn the event this information is protected by the Federal Confidentiality of Alcohol and Drug Abuse Patient Records regulations: The Federal rules restrict any use of the information to criminally investigate or prosecute any alcohol or drug abuse patient.[facility] HospitalIn the event this information is protected by the Federal Confidentiality of Alcohol and Drug Abuse Patient Records regulations: The Federal rules restrict any use of the information to criminally investigate or prosecute any alcohol or drug abuse patient.[facility] HospitalIn the event this information is protected by the Federal Confidentiality of Alcohol and Drug Abuse Patient Records regulations: The Federal rules restrict any use of the information to criminally investigate or prosecute any alcohol or drug abuse patient.[facility] HospitalIn the event this information is protected by the Federal Confidentiality of Alcohol and Drug Abuse Patient Records regulations: The Federal rules restrict any use of the information to criminally investigate or prosecute any alcohol or drug abuse patient.[facility] HospitalIn the event this information is protected by the Federal Confidentiality of Alcohol and Drug Abuse Patient Records regulations: The Federal rules restrict any use of the information to criminally investigate or prosecute any alcohol or drug abuse patient.[facility] HospitalIn the event this information is protected by the Federal Confidentiality of Alcohol and Drug Abuse Patient Records regulations: The Federal rules restrict any use of the information to criminally investigate or prosecute any alcohol or drug abuse patient.[facility] Care Teams (unrecognized sec tion and content) Board Writer Relationship Specialty Start Date End Date Elena Ann PCP - General Family Practice 07/14/15 Fernando Angeles MD [address] [id number] Primary Staff Physician Cardiology 09/29/18 Board Writer Relationship Specialty Start Date End Date Elena Ann PCP - General Family Practice 07/14/15 Fernando Angeles MD [address] [facility] [address] [place] [address] Primary Staff Physician Cardiology 09/29/18 Board Writer Relationship Specialty Start Date End Date Leo Cameron PA [address] [place] [address] PCP - General Physician Quality Improvement Specialist 05/02/22 Team Status: Active Member Role Status Dates NON STAFF Primary Care Provider Active Team Status: Inactive Member Role Status Dates NON STAFF Primary Care Provider Active Joesph Pelletier , DO Emergency Provider Active Board Writer Relationship Specialty Start Date End Date Elena AnnSHIRA PCP - General Family Medicine 07/14/15 Fernando Angeles MD [address] [phone] Primary Staff Physician Cardiology 09/29/18 Goals (unrecognized section and content) Goals may be documented in a n alternate section Reason for Visit (unrecogniz ed section and content) Reason Comments General weakness/tiredness Reason Comments Shortness of breath Reason Comments [facility] OUTREACH [facility] Care Coordination FOR RECORDS PERTAINING TO PATIENTS WHO ARE OR HAVE BEEN ENROLLED IN A CHEMICAL DEPENDENCY/SUBSTANCEABUSE PROGRAM, SOME INFORMATION MAY BE OMITTED. This clinical summary was aggregated from multiple sources. Caution should be exercised in using it in the provision of clinical care. This summary normalizes information from multiple sources, and as a consequence, information in this document may materially change the coding, format and clinical context of patient data. In addition, data may be omitted in some cases. CLINICAL DECISIONS SHOULD BE BASED ON THE PRIMARY CLINICAL RECORDS. [employer] provides no warranty or guarantee of the accuracy or completeness of information in this document.
--- NOTE | 2023-08-25 14:40 | P.CN_ITS ---
Consult Note: HPI Data of Consult Patient: known to practice within the last 3 years Consult date: 08/25/23 Requesting Physician: Marce Zapata MD Primary Care Provider: Non-Staff Physician, Consult Narrative Reason for consult: generalized pain Narrative: 67yom who presents for assessment. endorses pain throughout entire body. states injections in past have not helped. imaging reviewed, which shows cervical and lumbar spondylosis diffusely. started butrans patch recently. has developed edema since starting lyrica. cc:: CC: Marce Zapata MD Review of Systems ROS Status of ROS 10 or more systems reviewed and unremark able except as noted in history and below Meds Home Medications and Allergies Home Medications Medication Instructions Recorded Confirmed Type acetaminophen 650 mg 1,300 mg PO Q8H PRN fever or pain 08/04/23 08/04/23 History tablet,extended release (8 Hour Pain Reliever) albuterol sulfate 2.5 mg/0.5 mL 2.5 mg inhalation TID-QID PRN 08/04/23 08/04/23 History solution for nebulization shortness of breath or wheezing albuterol sulfate 90 mcg/actuation 2 inh inhalation Q4H PRN shortness 08/04/23 08/04/23 History aerosol inhaler of breath or wheezing aspirin 81 mg tablet,delayed 81 mg PO DAILY 08/04/23 08/04/23 History release (Adult Aspirin Regimen) buprenorphine 5 mcg/hour weekly 1 patch transdermal QWEEK #4 ea 08/04/23 Rx transdermal patch (Butrans) hydralazine 100 mg tablet 100 mg PO TID 08/04/23 08/04/23 History ipratropium 20 mcg-albuterol 100 1 puff inhalation Q6H 08/04/23 08/04/23 History mcg/actuation mist for inhalation (Combivent Respimat) ipratropium bromide 0.02 % 2.5 ml inhalation Q8H PRN 08/04/23 08/04/23 History solution for inhalation shortness of breath or wheezing isosorbide mononitrate 30 mg 30 mg PO DAILY 08/04/23 08/04/23 History tablet,extended release 24 hr lisinopril 20 mg tablet 20 mg PO DAILY 08/04/23 08/04/23 History meloxicam 15 mg tablet 15 mg PO DAILY #30 tabs 08/04/23 Rx nicotine 21 mg/24 hr daily 1 patch transdermal DAILY 08/04/23 08/04/23 History transdermal patch pregabalin 50 mg capsule (Lyrica) 50 mg PO TID #90 caps 08/04/23 Rx sennosides 8.6 mg capsule (senna) 8.6 mg PO DAILY 08/04/23 08/04/23 History buprenorphine 5 mcg/hour weekly 1 patch transdermal Q7D #4 ea 08/20/23 Rx transdermal patch (Butrans) Allergies Allergy/AdvReac Type Severity Reaction Status Date / Time No Known Drug Allergies Allergy Verified 08/04/23 13:33 Exam Narrative Exam Narrative: Psych-alert and oriented x 3. Attentive and appropriate, constitutionally normal, displays normal mood and affect per situation.? There are no obvious deficits in memory, reasoning, or intellect.? Skin-no obvious rashes, bruising, erythema noted to the patient's area of pain. Extremities- extremities are warm with minimal edema and palpable pulses. Lumbar-no significant tenderness to palpation noted in the lumbar spine and paraspinal musculature.? Pain is elicited with extension, and lateral rotation of the lumbar spine. Range of motion is slightly diminished with these motions due to pain. Facet loading maneuvers are positive bilaterally and do appear to be concordant with the patient's normal complaints of pain.? Coordination remains intact.? Gait remains non-antalgic. Assessment and Plan Assessment and Plan (1) Cervical spondylosis: (2) Lumbar spondylosis: Plan 67yom who presents for assessment. generalized pain throughout body. imaging reviewed, as noted. continue to think he would benefit from mbb/rfa, given pain and imaging, but he is uninterested. will continue butrans patch, discontinue lyrica. will trial cymbalta 60mg qhs. follow up in 3 months.
== END 2023-08-25 12:06 | disposition home or self-care (01) ==
LOC: PM 12:06
PROVIDERS: Visit Provider Anesthesiology
DX: M47.812 Spondylosis without myelopathy or radiculopathy, cervical region (principal); M47.816 Spondylosis without myelopathy or radiculopathy, lumbar region
CPT/HCPCS: G0463